=== PATIENT | male | born 1945 | race Caucasian/White ===

== ENCOUNTER 2019-08-19 12:20 | Inpatient (IN) | payer MEDICARE, OTHER ==
[~2019-08-19 12:20] MED LIST: Iopamidol 370 76% 100 ML VIAL ONE
[2019-08-19 12:52] LABS: #Eosinphils 0.2 thou/uL (0.0-0.7); #Lymphocytes 1.2 thou/uL (1.20-3.40); #Monocytes 0.2 thou/uL (0.11-0.59); #Neutrophils 8.1 thou/uL (1.40-6.50); %Lymphocytes 12.7 % (21.0-51.0); %Monocytes 1.7 % (0.0-10.0); %Neutrophils 83.6 % (42.0-75.0); Hemoglobin 18.6 g/dL (14.0-18.0); Mean Corpuscular HGB CONC 33.9 g/dL (32.0-36.0); Mean Corpuscular Volume 91.4 fL (78.0-98.0); Mean Platelet Volume 8.9 fL (7.4-10.4); Platelet Count 197 thou/uL (130-400); RBC Distribution Width 12.1 % (11.5-14.5); Red Blood Cell (RBC) Count 5.99 mill/uL (4.70-6.10); White Blood Cell (WBC) Count 9.7 thou/uL (4.8-10.8)
[2019-08-19 12:58] LABS: INR-International Normal Ratio 1.8; PTT 30.2 sec (22.9-36.1); Prothrombin Time 20.6 sec (12.0-14.7)
[2019-08-19 13:03] LABS: Bacteria/HPF None Seen HPF (None Seen); Bilirubin Negative (Negative); Blood, Urine 1+ (Negative); Clarity Clear (Clear); Glucose, Urine (Dipstick) 70 mg/dL (Negative); Ketone, Urine Negative (Negative); Leukocyte Negative Leu/uL (Negative); Mucous/LPF 1+ LPF (<2+); Nitrite Negative (Negative); Protein, Urine (Dipstick) 10 mg/dL (Neg-Trace); RBC/HPF 21-50 HPF (0-3); Specific Gravity, Urine 1.026 (1.002-1.036); Squamous Epithelial None Seen HPF (0-3); WBC/HPF 0-3 HPF (0-3); pH, Urine 6.5 (5.0-9.0)
[2019-08-19 13:12] LABS: ALT (SGPT) 37 U/L (8-55); AST (SGOT) 38 U/L (5-34); Albumin 3.9 g/dL (3.4-4.8); Alkaline Phosphatase 88 U/L (40-110); Anion Gap 19 mmol/L (10-20); BUN (Urea Nitrogen) 13 mg/dL (8.4-25.7); Bilirubin, Total 1.5 mg/dL (0.2-1.2); Calc. Creatinine Clearance 0 mL/min (70-130); Carbon Dioxide 18 mmol/L (23-31); Chloride 106 mmol/L (98-107); Estimated GFR-MDRD 56; Globulin 3.4 g/dL (2.4-3.5); Glucose 233 mg/dL (83-110); Lipase 38 U/L (8-78); Potassium 4.7 mmol/L (3.5-5.1); Protein, Total 7.3 g/dL (5.8-8.1); Sodium 138 mmol/L (136-145)
[2019-08-19] MEDS ORDERED: Cefepime 2 GM VIAL ONE (13:24)
[2019-08-19 13:29] LABS: CKMB 2.4 ng/mL (0-6.6)
--- NOTE | 2019-08-19 13:46 | RAD ---
CHEST 1 VIEW: Date: 08/19/2019 HISTORY: Hypotensive. COMPARISON: 07/05/2014. FINDINGS: Heart size is within normal limits. No confluent pneumonia, overt edema, or pleural effusion. IMPRESSION: No significant acute intrathoracic disease. Atherosclerotic ectatic changes of the aorta. Stable from prior study. POS: RRE
[2019-08-19] MEDS ORDERED: Vancomycin 1 GM/200 ML BAG ONE (13:53)
--- NOTE | 2019-08-19 15:27 | CT ---
CT ABDOMEN AND PELVIS WITH IV CONTRAST: 08/19/19 HISTORY: Abdominal pain and vomiting. FINDINGS: Comparison is made with exam of 07/05/14. There are dependent changes in the lung bases. No free air or free fluid is seen in the abdomen or pe lvis. Calcified gallstones are again seen. The liver, pancreas, adrenal glands, and kidneys are unremarkable. Calcified granulomas in the spleen are again seen. No free air or lymphadenopathy seen. A tiny amount of free fluid is present in the lower abdomen. The re are vascular calcifications without evidence of aneurysmal dilatation of the abdominal aorta. Ther e are degenerative changes in the spine. The prostate is enlarged. There are fluid filled nondilated small bowel loops involving the ileum. There is fluid in the right colon. There is fecal material in the transverse, descending, sigmoid colon and rectum. There is mild pericolonic inflammatory change surrounding the descending and sigmoid colon. The patient is post ap pendectomy. A small fat containing ventral hernia is present. IMPRESSION: 1. Cholelithiasis. 2. Findings are suggestive of enterocolitis. 3. Prostatic enlargement. POS: [facility]
[2019-08-19 15:37] LABS: Lactic Acid 5.7 mmol/L (0.5-2.2)
[2019-08-19] MEDS ORDERED: Dextrose 50% Abboject 50 ML SYRINGE SLOW IVP PRN (15:39)
[2019-08-19] MEDS ORDERED: Acetaminophen 325 MG TAB PO PRN (15:39)
[2019-08-19] MEDS ORDERED: Dextrose 5% in Water 1,000 ML IV PRN (15:39)
[2019-08-19] MEDS ORDERED: Guaifenesin DM 100-10/5 ML UDCUP PO PRN (15:39)
[2019-08-19] MEDS ORDERED: Cyclobenzaprine 10 MG TAB PO PRN (15:39)
--- NOTE | 2019-08-19 17:23 | HP ---
REASON FOR ADMISSION: Sepsis, possible gastroenteritis, possible COVID, and possible TIA. HISTORY OF PRESENTING ILLNESS: The patient is accompanied by his in the room. She apparently saw him vomit nearly 3 to 4 times around 9:00 a.m. His temperature was 93 degrees. She could not get a blood pressure reading on him. He did not have any diarrhea at the home, but on arrival here, has had large watery brown colored stool. The patient also has been having left lower extremity edema, off and on for the last few days and the has been giving diuretic on a p.r.n. basis. During these episodes, the patient also had slurred speech. He has known history of cerebrovascular accident and has baseline left hemiparesis and is wheelchair bound. He can help with transfers. [place] has had no exposure to [place] virus per . The patient does not go outside the house, but the does go out for groceries. She has not encountered anybody with coronavirus infection as such. 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 He has had history of mechanical thrombectomy done in February of [address] Tai for right MCA stroke with left hemiparesis, history of inferior wall CT with multiple stent placements around 2005 and follows up with Dr. Barber. History of pulmonary embolism in March of 2013. Depression. History of left lower extremity DVT diagnosed in November 2013. Appendectomy and shrapnel removed when he was in the [employer] in [place] from right lower quadrant area, hemorrhoidectomy. Prior colonoscopies with adenomatous polyps, removed in 2011 and follows up with Dr. Hart. Cataract extractions with lens implant, left shoulder lipoma removed, gastroesophageal reflux disease, allergic rhinitis, history of constipation, prior exposure to Agent [place] in [place]. CURRENT MEDICATIONS: 1. Xarelto 20 mg p.o. nightly. 2. Aspirin 81 mg p.o. daily. 3. Gabapentin 300 mg 3 times daily. 4. Lisinopril 40 mg daily. 5. Flomax 0.4 mg p.o. daily. 6. Fluoxetine 40 mg daily. 7. Isosorbide mononitrate 30 mg daily. 8. Simvastatin 40 mg p.o. nightly. 9. Carvedilol 12.5 mg twice daily. 10. Metformin 500 mg p.o. daily. ALLERGIES: NO KNOWN DRUG ALLERGIES. PERSONAL HISTORY: The patient was using smokeless tobacco in the past and has quit. Does not abuse alcohol or drugs. Lives with his . He is currently wheelchair bound, but helps with transfers. FAMILY HISTORY: The father of myocardial infarction at the age of 40. Mother has had history of lung cancer, in her 50s from a stroke. She was a smoker. CODE STATUS: Full. 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 REVIEW OF SYSTEMS: CONSTITUTIONAL: Negative for weight loss or gain, ability to conduct usual activities. SKIN: Negative for rash, itching. EYES: Negative for double vision, pain. ENT/MOUTH: Negative for nose bleeding, neck stiffness, pain, tenderness. CARDIOVASCULAR: Negative for palpitations, dyspnea on exertion, orthopnea. RESPIRATORY: Negative for shortness of breath, wheezing, cough, hemoptysis, fever or night sweats. GASTROINTESTINAL: Negative for poor appetite, abdominal pain, heartburn, nausea, vomiting, constipation, or diarrhea. GENITOURINARY: Negative for urgency, frequency, dysuria, nocturia. MUSCULOSKELETAL: Negative for pain, swelling. NEUROLOGIC/PSYCHIATRIC: Negative for anxiety, depression. ALLERGY/IMMUNOLOGIC: Negative for skin rash, bleeding tendency. PHYSICAL EXAMINATION: GENERAL: The patient is a 73-year-old male, who is currently not in any acute distress. VITAL SIGNS: Blood pressure on arrival was 96/66, currently 110/64; pulse rate 58 per minute, respiratory rate 18 per minute, temperature 97.6 degrees Fahrenheit, and saturating 97% on room air. NECK: Supple. No elevated JVD. HEENT: Eyes; extraocular muscles are intact. Pupils are reacting to light. Oral cavity, mucous membranes are dry. No exudates or congestion. CARDIOVASCULAR SYSTEM: S1 and S2 heard, regular rhythm. RESPIRATORY: Air entry 1+ bilateral. No rales or rhonchi. ABDOMEN: Soft. Bowel sounds heard. No tenderness, rigidity, or guarding. EXTREMITIES: Left lower extremity, there is edema when compared to right lower extremity. No ischemic ulcers or gangrene noted. Peripheral pulses are 1+ bilateral. CENTRAL NERVOUS SYSTEM: The patient has left hemiparesis, which is chronic with a strength of around 2/5 to 3/5 in the left lower extremity and left upper extremity around 2/5. Right upper and lower extremity strength is 5/5. No other cranial nerve deficits were noted. PSYCHIATRIC SYSTEM: The patient's mood is euthymic. No hallucinations or delusions. LABORATORY DATA: Chest x-ray done shows no acute infiltrate. CT of the abdomen and pelvis with IV contrast done shows cholelithiasis. Findings suggestive of enterocolitis, prostatic enlargement. White count of 9.7, H and H 18 and 54, platelet count 197 with 83% neutrophils. PT/INR 20 and 1.8, PTT 30, serum bicarb 18, BUN 13, creatinine 1.26, serum glucose 233. Lactic acid was 4 and repeat is 5.7. Total bilirubin 1.5, AST 38, ALT 37, alkaline phosphatase 88, CK-MB is 2.4, albumin 3.9. Troponin I 0.04. BNP 340. Lipase 38. UA is negative for any infection. EKG done shows sinus bradycardia at 57 beats per minute. There is Q-wave seen in V2, V3, and poor R-wave progression. CLINICAL IMPRESSION AND PLAN: The patient will be admitted to telemetry for sepsis with severe dehydration, gastroenteritis, to rule out C diff as well with no prior antibiotic exposure in the recent past, to rule out COVID, possible TIA. Blood, urine, and stool cultures will be obtained including stool for C diff. He will be on normal saline at 80 mL/h. We will keep him on full liquid diet. The patient likely has left lower extremity DVT, but he is already on Xarelto, and we will continue his aspirin as well. We will obtain MRI without contrast once his COVID is negative. Echo in view of prior mass on the tricuspid valve and current sepsis picture. He will be on Cipro and Flagyl for now. We will continue Lipitor, carvedilol, Plavix, Prozac, Neurontin, Imdur, and Flomax for now. Once his blood pressure comes up, we will add GRANT inhibitor. We will continue to closely monitor him on the COVID floor until he is ruled out. I have given complete updates to the patient's . Job ID: [id number]
[2019-08-19] MEDS: Sodium Chloride 0.9% 1,000 ML IV SCH (17:52)
[2019-08-19] MEDS: Carvedilol 3.125 MG TAB PO SCH (17:53)
[2019-08-19] MEDS ORDERED: Rivaroxaban 15 MG TAB PO SCH (21:00)
[2019-08-19] MEDS ORDERED: Carvedilol 6.25 MG TAB PO SCH (21:00)
[2019-08-19] MEDS: Gabapentin 100 MG CAP PO SCH (21:16)
[2019-08-19] MEDS: Atorvastatin Calcium 20 MG TAB PO SCH (21:16)
[2019-08-19] MEDS: Tamsulosin HCl 0.4 MG CAP PO SCH (21:16)
[2019-08-19] MEDS: metroNIDAZOLE 500 MG in Premix Bag 1 BAG IVPB SCH (21:17)
[2019-08-19] MEDS: Rivaroxaban 10 MG TAB PO SCH (21:21)
[2019-08-20 05:03] LABS: Band 22 % (5-11); Hemoglobin 16.8 g/dL (14.0-18.0); Lymphocytes 8 % (21-51); MDiff Complete? YES; Mean Corpuscular HGB CONC 33.7 g/dL (32.0-36.0); Mean Corpuscular Hemoglobin 30.8 pg (27.0-31.0); Mean Corpuscular Volume 91.3 fL (78.0-98.0); Mean Platelet Volume 9.1 fL (7.4-10.4); Monocytes 6 % (0-10); Neutrophil 64 % (42-75); Platelet Count 182 thou/uL (130-400); Platelet Morphology Comment Appears Adequate; RBC Distribution Width 12.3 % (11.5-14.5); RBC Morphology Normal; Red Blood Cell (RBC) Count 5.46 mill/uL (4.70-6.10)
[2019-08-20 05:09] LABS: ALT (SGPT) 43 U/L (8-55); AST (SGOT) 58 U/L (5-34); Albumin 3.3 g/dL (3.4-4.8); Alkaline Phosphatase 61 U/L (40-110); Anion Gap 16 mmol/L (10-20); BUN (Urea Nitrogen) 24 mg/dL (8.4-25.7); Bilirubin, Total 1.1 mg/dL (0.2-1.2); Calc. Creatinine Clearance 73 mL/min (70-130); Calcium 8.1 mg/dL (7.8-10.44); Carbon Dioxide 17 mmol/L (23-31); Cardiac Risk 3.2 (Less than 4.5); Chloride 108 mmol/L (98-107); Cholesterol 87 mg/dl (< 200 Desired); Estimated GFR-MDRD 54; Globulin 2.8 g/dL (2.4-3.5); Glucose 202 mg/dL (83-110); HDL Cholesterol 27 mg/dL (>60 Neg Risk); LDL Cholesterol, Calculated 44 mg/dL; Potassium 4.3 mmol/L (3.5-5.1); Protein, Total 6.1 g/dL (5.8-8.1); Sodium 137 mmol/L (136-145); Triglycerides 78 mg/dL (Less than 150)
[2019-08-20] MEDS: metroNIDAZOLE 500 MG in Premix Bag 1 BAG IVPB SCH ×2 (05:44→14:30)
[2019-08-20] MEDS: Sodium Chloride 0.9% 1,000 ML IV SCH ×2 (08:22→23:49)
[2019-08-20] MEDS: Carvedilol 3.125 MG TAB PO SCH (08:23)
[2019-08-20] MEDS: FLUoxetine HCl 20 MG CAP PO SCH (08:23)
[2019-08-20] MEDS: Aspirin 81 mg Enteric Coated Tablet PO SCH (08:23)
[2019-08-20] MEDS: Tamsulosin HCl 0.4 MG CAP PO SCH (08:24)
[2019-08-20] MEDS ORDERED: Clopidogrel Bisulfate 75 MG TAB PO SCH (09:00)
[2019-08-20] MEDS ORDERED: Lisinopril 20 MG TAB PO SCH (09:00)
[2019-08-20 11:03] LABS: SARS-CoV-2 MS2 Positive; SARS-CoV-2 N Gene Negative; SARS-CoV-2 S Gene Negative; SARS-CoV-2 orf1ab Negative
--- NOTE | 2019-08-20 12:19 | PDOC.HOSPP ---
- Subjective Encounter Date: 08/20/19 Encounter Time: :20 Subjective: c/o nausea and doesn't feel like drinking or eating mild abd cramps, last bm was yesterday per patient no sob or chest pain - Objective Vital Signs & Weight: Vital Signs (12 hours) Temp Pulse Resp BP Pulse Ox 08/20/19 08:25 98.2 F 68 16 122/58 L 93 L 08/20/19 04:00 99.2 F 78 18 116/57 L 92 L Weight Weight 230 lb 6.4 oz I&O: 08/19/19 08/20/19 08/21/19 06:59 06:59 06:59 Intake Total 1508 Balance 1508 Result Diagrams: 08/20/19 04:36 08/20/19 04:36 Additional Labs: Accuchecks 08/19/19 08/19/19 21:35 12:28 POC Glucose 206 H 228 H Hospitalist ROS - Medication Medications: Active Medications Generic Name Dose Route Start Last Admin Trade Name Freq PRN Reason Stop Dose Admin Aspirin 81 mg 08/20/19 09:00 08/20/19 08:23 Ecotrin PO 81 mg DAILY KATHYA Administration Atorvastatin Calcium 20 mg 08/19/19 21:00 08/19/19 21:16 Lipitor PO 20 mg HS KATHYA Administration Carvedilol 3.125 mg 08/19/19 17:00 08/20/19 08:23 Coreg PO 3.125 mg BID-WM KATHYA Administration Fluoxetine HCl 40 mg 08/20/19 09:00 08/20/19 08:23 Prozac PO 40 mg DAILY KATHYA Administration Gabapentin 100 mg 08/19/19 21:00 08/19/19 21:16 Neurontin PO 100 mg HS KATHYA Administration Sodium Chloride 1,000 mls @ 80 mls/hr 08/19/19 15:45 08/20/19 08:22 Normal Saline 0.9% IV 1,000 mls .[id number] KATHYA Administration Ciprofloxacin/Dextrose 400 mg/ 200 mls @ 200 mls/hr 08/19/19 17:00 08/20/19 03:57 Device IVPB 200 mls 0500,1700 KATHYA Administration Metronidazole 500 mg/ Device 100 mls @ 100 mls/hr 08/19/19 22:00 08/20/19 05: 44 IVPB 100 mls Q8HR KATHYA Administration Isosorbide Mononitrate 60 mg 08/20/19 09:00 08/20/19 08:23 Imdur PO 60 mg DAILY KATHYA Administration Pantoprazole Sodium 40 mg 08/20/19 09:00 08/20/19 08:23 Protonix PO 40 mg DAILY KATHYA Administration Rivaroxaban 20 mg 08/19/19 21:00 08/19/19 21:21 Xarelto PO 20 mg QPM KATHYA Administration Tamsulosin HCl 0.4 mg 08/19/19 21:00 08/20/19 08:24 Flomax PO 0.4 mg BID KATHYA Administration - Exam General Appearance: awake alert Eye: PERRL, anicteric sclera ENT: no oropharyngeal lesions, moist mucosa Neck: supple, no JVD Heart: RRR, no murmur Respiratory: no wheezes, no rales Gastrointestinal: soft, non-distended, normal bowel sounds, no guarding, no rigidity Extremities: no cyanosis, 1+ LE edema Neurological: cranial nerve grossly intact Neurological - other findings: left hemiparesis Psychiatric: normal affect, A&O x 3 Hosp A/P (1) Sepsis Code(s): A41.9 - SEPSIS, UNSPECIFIED ORGANISM Status: Acute Qualifiers: Sepsis type: sepsis due to unspecified organism Sepsis acute organ dysfunction status: without acute organ dysfunction Qualified Code(s): A41.9 - Sepsis, unspecified organism (2) Gastroenteritis Code(s): K52.9 - NONINFECTIVE GASTROENTERITIS AND COLITIS, UNSPECIFIED Status : Acute (3) Intractable nausea and vomiting Code(s): R11.2 - NAUSEA WITH VOMITING, UNSPECIFIED Status: Acute (4) HTN (hypertension) Code(s): I10 - ESSENTIAL (PRIMARY) HYPERTENSION Status: Chronic Qualifiers: Hypertension type: essential hypertension Qualified Code(s): I10 - Essential (primary) hypertension (5) DM type 2 (diabetes mellitus, type 2) Status: Chronic Qualifiers: Diabetes mellitus termite exterminator insulin use: without termite exterminator use Diabetes mellitus complication status: with neurologic complications Diabetes mellitus complication detail: with polyneuropathy Qualified Code(s): E11.42 - Type 2 diabetes mellitus with diabetic polyneuropathy (6) Dyslipidemia Code(s): E78.5 - HYPERLIPIDEMIA, UNSPECIFIED Status: Chronic (7) Obesity (BMI 30.0-34.9) Code(s): E66.9 - OBESITY, UNSPECIFIED Status: Chronic (8) H/O: CVA (cerebrovascular accident) Code(s): Z86.73 - PRSNL HX OF TIA (TIA), AND CEREB INFRC W/O RESID DEFICITS Status: Chronic - Plan is on asp, lipitor, cipro, flagyl, iv fluids, xarelto, prozac, imdur and neurontin has h/o dvt and PE on xarelto, currently has left LE edema likely dvt? wbc around 17k with bands, mild abd tenderness, diarrhea, imaging consistent with colitis will repeat covid 19 pcr, initial test is -ve consultation prelim blood and stool cultures are -ve echo, mri and usg venous doppler when his repeat covid 19 pcr is -ve (may hold off on them until he is -ve) hemostable watch for airway
[2019-08-20 15:06] LABS: Lactic Acid 2.9 mmol/L (0.5-2.2)
[2019-08-20] MEDS: MEROPENEM 1 GM/50 ML 1 GM in Premix Bag 1 BAG IVPB SCH ×2 (15:38→23:49)
[2019-08-20] MEDS ORDERED: Prevnar 13-Val Conj/PF 0.5 ML SYRINGE IM ONE (17:15)
--- NOTE | 2019-08-20 20:01 | CON ---
DATE OF CONSULTATION: 08/20/2019 REASON FOR CONSULTATION: Diarrhea, slurred speech, hypotension, and concern with an intraabdominal inflammatory process. HISTORY OF PRESENT ILLNESS: I saw Mr. Werner in 2013. At that time, he had a history of coronary artery disease and previous right hemispheric CVA with dense left hemiplegia. He also had an abnormality seen in the tricuspid valve. Subsequently, he was diagnosed with pulmonary embolism and we felt that this abnormality in the tricuspid valve was likely to represent a clot rather than an infectious vegetation. He was not treated with antimicrobials. I have not seen him since and now he presented from home reportedly with slurred speech and hypotension. When he came in, the patient had a BP 114/58, heart rate 59, O2 saturation 97% on room air, and he remained afebrile through the ER stay. He did not appear in distress on arrival. He was alert and described as oriented to person, place, and time and the remainder aspects of the exam were not particularly remarkable. Specifically, the abdomen was not tender or distended. Other findings included white cell count 9.7, hemoglobin 18.6, and platelets 197 with 83% neutrophils. INR is 1.8. Sodium 138, creatinine 1.26, bilirubin 1.5, AST 38, and BNP was 340 with troponin 0.048. Albumin 3.9. Lipase was 38. Lactic acid was 4.0. Urinalysis with 0 to 3 wbc's, 21 to 50 rbc's. COVID test was negative. Imaging studies included a chest x-ray, which demonstrated no evidence of infiltrates. There is an abdomen and pelvis CT, which demonstrated small amount of free fluid in the lower abdomen, vascular calcifications noted, enlargement of prostate. There were fluid-filled nondilated small bowel loops in the ileum, fluid in the right colon, and mild pericolonic inflammatory change surrounding the descending and sigmoid. There was suggestion of enterocolitis in the radiologist interpretation. Today is the second day of hospital stay and he is receiving Cipro, Flagyl, and Xarelto. Mr. Werner is awake. He is kind of apathetic. He does not appear to be in distress. He had a fairly decent recollection of the events that led him to be transferred to [facility]. He recalls being air flighted to [facility]. Currently, he denies any headaches. No visual symptoms, sore throat, odynophagia, or dysphagia. No respiratory symptoms. He said he did have some abdominal pain in the mid abdominal area. He pointed to right above the umbilicus, but then subsequently denied he was having tenderness there and he pointed to most of the tenderness in the suprapubic area. He does not have a Velasquez catheter. He continues with that dense left hemiplegia as noted previously a few years ago. PAST MEDICAL HISTORY: Includes DVT with pulmonary embolism, clot in the right ventricle, hemorrhagic CVA with dense left hemiplegia, coronary artery disease, myocardial infarction. SOCIAL HISTORY: Never smoker. Lives with his in [place]. Never drank alcoholic beverages. ALLERGIES: NONE. MEDICATIONS: At the moment he is receiving, 1. Flomax. 2. Xarelto. 3. Prevnar. 4. Protonix. 5. Zofran. 6. Flagyl. 7. Imdur. 8. Insulin. 9. Glucagon. 10. Neurontin. 11. Prozac. 12. Flexeril. 13. Cipro. 14. Lipitor. FAMILY HISTORY: Noncontributory. ALLERGIES: NO KNOWN DRUG ALLERGIES REPORTED. PHYSICAL EXAMINATION: VITAL SIGNS: T-max 99.2, BP 120/58, pulse 68, respirations 16, and O2 saturation 92% to 93%. SKIN: The patient has a peripheral IV access. No Velasquez catheter. No lymphadenopathy. HEENT: Ocular movements are conjugate. Sclerae are white. Oral cavity was not particularly remarkable. NECK: Supple. No jugular vein distention. LUNGS: With diminished breath sounds at bases, but no crackles or wheezing. HEART: S1 and S2. Diminished heart sounds. No obvious murmurs. ABDOMEN: Slightly distended, but soft. He was not tender on palpation for the most part except for the suprapubic area that was [id number] tender. I did a bladder scan and it was about a little bit more than 200 mL and within the bladder. GENITAL: Not remarkable. NEUROLOGIC: There is dense left hemiplegia. The right side moves fairly normally. Plantar responses are flexor. No clonus. Pulses are diminished in dorsalis pedis. He is awake, follows commands somewhat, appears depressed. LABORATORY DATA: Latest labs: White cell count 17.0, hemoglobin 16, platelets 182 with 22% bands. C diff was negative. Campylobacter negative. Shiga toxin test negative. Stool culture was not particularly remarkable. Blood cultures and urine culture no growth thus far. ASSESSMENT: 1. Vascular disease with prior cerebrovascular accident and myocardial infarction, and prior pulmonary embolism as well. 2. Chronic left hemiplegia, on Xarelto to prevent recurrence of thromboembolism. 3. Hypotension and abnormalities noted on CT of the abdomen and pelvis in reference to the small bowel and colon. The patient is currently on broad-spectrum coverage. DISCUSSION: The differential diagnosis includes ischemic bowel disease, particularly in view of the patient's significant vascular history. This seems to be the main concern at this point, particularly with worsening bands. A food acquired gastrointestinal infection is less likely. Recurrence of embolism or systemic embolism from the right or left side of the heart is less likely. I believe COVID-19 has been properly ruled out and I would discontinue isolation precautions, unless there are other epidemiological factors that I am not aware of. We will switch him to a broader spectrum coverage with meropenem. We probably would have to repeat the CT study and continue to monitor his chemistry and CBC. I have discussed the CT with radiologist and it appears that the mesenteric vessels are patent but calcified. He did not recommend angiogram at this point He may develop further worsening urinary retention and I would monitor his bladder scan at least once or twice a day going forward. Job ID: [id number] [id number]
[2019-08-20] MEDS: Gabapentin 100 MG CAP PO SCH (20:29)
[2019-08-20] MEDS: Atorvastatin Calcium 20 MG TAB PO SCH (20:29)
[2019-08-20] MEDS: Rivaroxaban 10 MG TAB PO SCH (20:29)
[2019-08-21] MEDS: MEROPENEM 1 GM/50 ML 1 GM in Premix Bag 1 BAG IVPB SCH ×3 (05:50→23:03)
[2019-08-21 05:56] LABS: ALT (SGPT) 32 U/L (8-55); AST (SGOT) 42 U/L (5-34); Albumin 3.1 g/dL (3.4-4.8); Alkaline Phosphatase 54 U/L (40-110); Anion Gap 15 mmol/L (10-20); BUN (Urea Nitrogen) 38 mg/dL (8.4-25.7); Bilirubin, Total 0.9 mg/dL (0.2-1.2); Calc. Creatinine Clearance 66 mL/min (70-130); Carbon Dioxide 18 mmol/L (23-31); Chloride 109 mmol/L (98-107); Estimated GFR-MDRD 49; Globulin 2.5 g/dL (2.4-3.5); Glucose 149 mg/dL (83-110); Potassium 3.7 mmol/L (3.5-5.1); Protein, Total 5.6 g/dL (5.8-8.1); Sodium 138 mmol/L (136-145)
[2019-08-21 05:59] LABS: Band 22 % (5-11); Hemoglobin 14.4 g/dL (14.0-18.0); Lymphocytes 15 % (21-51); MDiff Complete? YES; Mean Corpuscular HGB CONC 34.3 g/dL (32.0-36.0); Mean Corpuscular Hemoglobin 31.5 pg (27.0-31.0); Mean Corpuscular Volume 91.7 fL (78.0-98.0); Mean Platelet Volume 9.2 fL (7.4-10.4); Monocytes 5 % (0-10); Neutrophil 58 % (42-75); Platelet Count 142 thou/uL (130-400); Platelet Morphology Comment Appears Adequate; RBC Distribution Width 12.5 % (11.5-14.5); Red Blood Cell (RBC) Count 4.58 mill/uL (4.70-6.10); White Blood Cell (WBC) Count 14.2 thou/uL (4.8-10.8)
[2019-08-21] MEDS ORDERED: Loperamide HCl 2 MG CAP PO PRN (06:47)
[2019-08-21] MEDS: Aspirin 81 mg Enteric Coated Tablet PO SCH (09:15)
[2019-08-21] MEDS: Sodium Chloride 0.9% 1,000 ML IV SCH (09:16)
[2019-08-21] MEDS: FLUoxetine HCl 20 MG CAP PO SCH (09:16)
[2019-08-21 11:04] LABS: SARS-CoV-2 MS2 Positive; SARS-CoV-2 N Gene Negative; SARS-CoV-2 S Gene Negative; SARS-CoV-2 orf1ab Negative
--- NOTE | 2019-08-21 13:12 | CON ---
NEUROLOGY CONSULTATION DATE OF CONSULTATION: 08/21/2019 REASON FOR CONSULTATION: Transient ischemic attack. HISTORY OF PRESENT ILLNESS: Mr. Werner is a 73-year-old male, who was admitted on 08/19/2019 with altered mental status and baseline worsening of the left hemiparesis. The saw him vomit 2 to 3 times, which was followed by diarrhea and then she noticed slurred speech during these episodes and worsening of the left hemiparesis, so she decided to bring him to the hospital for further evaluation. At baseline, he does have left hemiparesis and is wheelchair bound. He is currently ruled out for coronavirus infection because of vomiting and diarrhea. The patient denies headache, chest pain, abdominal pain, focal paresthesias, vertigo, dizziness, blurred vision, or loss of vision or loss of consciousness. REVIEW OF SYSTEMS: All 10 systems were reviewed and were negative except mentioned in the HPI. 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 History of pulmonary embolism 03/20/2013, depression, appendectomy, and hemorrhoidectomy. ALLERGIES: NO KNOWN DRUG ALLERGIES. SOCIAL HISTORY: , lives with his . Use smokeless tobacco. Denies smoking. Denies alcohol or illegal drug use. Wheelchair bound, but helps with transfers. FAMILY HISTORY: Father of myocardial infarction at age of 40. Mother had lung cancer and in her 50s because of stroke. Mother was a smoker. - Objective Vital Signs & Weight: Vital Signs (12 hours) Temp Pulse Resp BP Pulse Ox 08/20/19 08:25 98.2 F 68 16 122/58 L 93 L 08/20/19 04:00 99.2 F 78 18 116/57 L 92 L Weight Weight 230 lb 6.4 oz I&O: 08/19/19 08/20/19 08/21/19 06:59 06:59 06:59 Intake Total 1508 Balance 1508 Additional Labs: Accuchecks 08/19/19 08/19/19 21:35 12:28 POC Glucose 206 H 228 H Active Medications Generic Name Dose Route Start Last Admin Trade Name Freq PRN Reason Stop Dose Admin Aspirin 81 mg 08/20/19 09:00 08/20/19 08:23 Ecotrin PO 81 mg DAILY KATHYA Administration Atorvastatin Calcium 20 mg 08/19/19 21:00 08/19/19 21:16 Lipitor PO 20 mg HS KATHYA Administration Carvedilol 3.125 mg 08/19/19 17:00 08/20/19 08:23 Coreg PO 3.125 mg BID-WM KATHYA Administration Fluoxetine HCl 40 mg 08/20/19 09:00 08/20/19 08:23 Prozac PO 40 mg DAILY KATHYA Administration Gabapentin 100 mg 08/19/19 21:00 08/19/19 21:16 Neurontin PO 100 mg HS KATHYA Administration Sodium Chloride 1,000 mls @ 80 mls/hr 08/19/19 15:45 08/20/19 08:22 Normal Saline 0.9% IV 1,000 mls .[id number] KATHYA Administration Ciprofloxacin/Dextrose 400 mg/ 200 mls @ 200 mls/hr 08/19/19 17:00 08/20/19 03:57 Device IVPB 200 mls 0500,1700 KATHYA Administration Metronidazole 500 mg/ Device 100 mls @ 100 mls/hr 08/19/19 22:00 08/20/19 05: 44 IVPB 100 mls Q8HR KATHYA Administration Isosorbide Mononitrate 60 mg 08/20/19 09:00 08/20/19 08:23 Imdur PO 60 mg DAILY KATHYA Administration Pantoprazole Sodium 40 mg 08/20/19 09:00 08/20/19 08:23 Protonix PO 40 mg DAILY KATHYA Administration Rivaroxaban 20 mg 08/19/19 21:00 08/19/19 21:21 Xarelto PO 20 mg QPM KATHYA Administration Tamsulosin HCl 0.4 mg 08/19/19 21:00 08/20/19 08:24 Flomax PO 0.4 mg BID KATHYA Administration - Exam General Appearance: awake alert Eye: PERRL, anicteric sclera ENT: no oropharyngeal lesions, moist mucosa Neck: supple, no JVD Heart: RRR, no murmur Respiratory: no wheezes, no rales Gastrointestinal: soft, non-distended, normal bowel sounds, no guarding, no rigidity Extremities: no cyanosis, 1+ LE edema Psychiatric: normal affect, A&O x 2 Neurological: : Mental status: The patient is alert and oriented to person and place. Cranial nerves: Left facial droop, dysarthria less intact. Muscle bulk is normal. Muscle tone is increased in the left upper and lower extremity. Left upper and lower extremity 3/5. Right upper and lower extremity 5/5. Cerebellar, unable to perform on the left secondary to weakness. Sensory intact. Reflexes, brisk on the left. Babinski upgoing on the left. Gait deferred due to the patient's safety reason. Hosp A/P (1) Sepsis Code(s): A41.9 - SEPSIS, UNSPECIFIED ORGANISM Status: Acute Qualifiers: Sepsis type: sepsis due to unspecified organism Sepsis acute organ dysfunction status: without acute organ dysfunction Qualified Code(s): A41.9 - Sepsis, unspecified organism (2) Gastroenteritis Code(s): K52.9 - NONINFECTIVE GASTROENTERITIS AND COLITIS, UNSPECIFIED Status : Acute (3) Intractable nausea and vomiting Code(s): R11.2 - NAUSEA WITH VOMITING, UNSPECIFIED Status: Acute (4) HTN (hypertension) Code(s): I10 - ESSENTIAL (PRIMARY) HYPERTENSION Status: Chronic Qualifiers: Hypertension type: essential hypertension Qualified Code(s): I10 - Essential (primary) hypertension (5) DM type 2 (diabetes mellitus, type 2) Status: Chronic Qualifiers: Diabetes mellitus predatory animal exterminator insulin use: without predatory animal exterminator use Diabetes mellitus complication status: with neurologic complications Diabetes mellitus complication detail: with polyneuropathy Qualified Code(s): E11.42 - Type 2 diabetes mellitus with diabetic polyneuropathy (6) Dyslipidemia Code(s): E78.5 - HYPERLIPIDEMIA, UNSPECIFIED Status: Chronic (7) Obesity (BMI 30.0-34.9) Code(s): E66.9 - OBESITY, UNSPECIFIED Status: Chronic (8) H/O: CVA (cerebrovascular accident) Code(s): Z86.73 - PRSNL HX OF TIA (TIA), AND CEREB INFRC W/O RESID DEFICITS Status: Chronic . DATA REVIEWED: I reviewed the chest x-ray, which did not reveal any acute infiltrate. CT of the abdomen and pelvis shows cholelithiasis. EKG showed bradycardia. ASSESSMENT AND PLAN: Mr. Werner is a 73-year-old male, who was consulted for possible transient ischemic attack. Differential diagnosis includes transient ischemic attack versus infectious etiology, which may result in recrudescence of stroke symptoms. The patient is currently COVID rule out. Consider MRI of the brain once the patient is ruled out for COVID. Recommend carotid Dopplers and 2D echocardiography and telemetry. Recommend EEG for confusion. Continue aspirin and Plavix and statin for secondary stroke prevention. Continue home medications. Continue PT/OT/Speech. We will continue to follow. Thank you for the consult. Job ID: [id number] MTDD
--- NOTE | 2019-08-21 14:08 | ULT ---
ULTRASOUND DOPPLER DUPLEX VENOUS BILATERAL LOWER EXTREMITIES: DATE: 08/21/2019 HISTORY: 73-year-old male with bilateral lower extremity pain TECHNIQUE: Grayscale, color-flow, and spectral analysis, of major veins of bilateral lower extremities. FINDINGS: There is demonstration of blood flow with normal compressibility, of the bilateral common femoral, pr ofunda femoral, greater saphenous, femoral, popliteal, and posterior tibial, veins. IMPRESSION: Negative. No deep venous thrombosis of bilateral lower extremities.
--- NOTE | 2019-08-21 15:09 | PDOC.HOSPP ---
- Subjective Encounter Date: 08/21/19 Encounter Time: 09:45 Subjective: was able to eat this morning, feels better no nausea or abd pain today is oriented and follows verbal stimuli - Objective Vital Signs & Weight: Vital Signs (12 hours) Temp Pulse Resp BP BP Pulse Ox 08/21/19 12:40 97.7 F 74 18 166/77 H 94 L 08/21/19 09:00 98.1 F 71 16 151/67 H 94 L 08/21/19 05:00 97.6 F 66 20 142/66 H 93 L Weight Admit Weight 226 lb 14.4 oz Weight 234 lb I&O: 08/20/19 08/21/19 08/22/19 06:59 06:59 06:59 Intake Total 1508 480 907 Balance 1508 480 907 Result Diagrams: 08/21/19 05:10 08/21/19 05:10 Additional Labs: Accuchecks 08/21/19 08/21/19 08/20/19 12:38 06:02 20:39 POC Glucose 124 H 160 H 185 H 08/20/19 18:09 POC Glucose 154 H Hospitalist ROS - Medication Medications: Active Medications Generic Name Dose Route Start Last Admin Trade Name Freq PRN Reason Stop Dose Admin Aspirin 81 mg 08/20/19 09:00 08/21/19 09:15 Ecotrin PO 81 mg DAILY KATHYA Administration Atorvastatin Calcium 20 mg 08/19/19 21:00 08/20/19 20:29 Lipitor PO 20 mg HS KATHYA Administration Fluoxetine HCl 40 mg 08/20/19 09:00 08/21/19 09:16 Prozac PO 40 mg DAILY KATHYA Administration Gabapentin 100 mg 08/19/19 21:00 08/20/19 20:29 Neurontin PO 100 mg HS KATHYA Administration Sodium Chloride 1,000 mls @ 80 mls/hr 08/19/19 15:45 08/21/19 09:16 Normal Saline 0.9% IV 1,000 mls .[id number] KATHYA Administration Meropenem 1 gm/ Device 50 mls @ 100 mls/hr 08/20/19 15:00 08/21/19 05:50 IVPB 50 mls 0700,1500,2300 KATHYA Administration Loperamide HCl 2 mg 08/21/19 06:47 08/21/19 07:19 Imodium PO 2 mg Q4H PRN Administration Diarrhea/Loose Stools Pantoprazole Sodium 40 mg 08/20/19 09:00 08/21/19 09:16 Protonix PO 40 mg DAILY KATHYA Administration Rivaroxaban 20 mg 08/19/19 21:00 08/20/19 20:29 Xarelto PO 20 mg QPM KATHYA Administration Sodium Chloride 10 ml 08/19/19 15:39 08/21/19 09:16 Flush - Normal Saline IVF 10 ml PRN PRN Administration Saline Flush - Exam General Appearance: awake alert Eye: PERRL, anicteric sclera ENT: no oropharyngeal lesions, moist mucosa Neck: supple, no JVD Heart: RRR, no murmur Respiratory: no wheezes, no rales Gastrointestinal: soft, non-tender, non-distended, normal bowel sounds Extremities: no cyanosis, 1+ LE edema Neurological: cranial nerve grossly intact, hemiplegia Psychiatric: normal affect, A&O x 3 Hosp A/P (1) Sepsis Code(s): A41.9 - SEPSIS, UNSPECIFIED ORGANISM Status: Acute Qualifiers: Sepsis type: sepsis due to unspecified organism Sepsis acute organ dysfunction status: without acute organ dysfunction Qualified Code(s): A41.9 - Sepsis, unspecified organism (2) Gastroenteritis Code(s): K52.9 - NONINFECTIVE GASTROENTERITIS AND COLITIS, UNSPECIFIED Status : Acute (3) Intractable nausea and vomiting Code(s): R11.2 - NAUSEA WITH VOMITING, UNSPECIFIED Status: Resolved (4) HTN (hypertension) Code(s): I10 - ESSENTIAL (PRIMARY) HYPERTENSION Status: Chronic Qualifiers: Hypertension type: essential hypertension Qualified Code(s): I10 - Essential (primary) hypertension (5) DM type 2 (diabetes mellitus, type 2) Status: Chronic Qualifiers: Diabetes mellitus jail insulin use: without terminal press operator use Diabetes mellitus complication status: with neurologic complications Diabetes mellitus complication detail: with polyneuropathy Qualified Code(s): E11.42 - Type 2 diabetes mellitus with diabetic polyneuropathy (6) Dyslipidemia Code(s): E78.5 - HYPERLIPIDEMIA, UNSPECIFIED Status: Chronic (7) Obesity (BMI 30.0-34.9) Code(s): E66.9 - OBESITY, UNSPECIFIED Status: Chronic (8) H/O: CVA (cerebrovascular accident) Code(s): Z86.73 - PRSNL HX OF TIA (TIA), AND CEREB INFRC W/O RESID DEFICITS Status: Chronic - Plan is on asp, lipitor, meropenem, iv fluids, xarelto, prozac, imdur and neurontin has h/o dvt and PE on xarelto, currently has left LE edema but usg venous is - ve for dvt. covid 19 x2 is -ve, imaging consistent with colitis dc airborne and droplet precautions, cdif is -ve as well consultation blood and stool cultures are -ve echo, mri to be done today/am hemostable PT to start mobilizing with rw tx to telemetry or stroke unit
--- NOTE | 2019-08-21 18:06 | PRG ---
DATE OF SERVICE: 08/21/2019 SUBJECTIVE: Still having some abdominal tenderness intermittently, mostly in the periumbilical region. Dr. Shafer has evaluated the patient, and he is going to have an MRI done tomorrow, I believe. Still having diarrhea intermittently. No vomiting. No respiratory symptoms. OBJECTIVE: VITAL SIGNS: T-max 99.2, blood pressure 170/86, pulse 68, respirations 18, O2 saturation 94%. GENERAL: Awake and alert. Dense left hemiplegia. LUNGS: Clear. HEART: S1 and S2. Regular rate. ABDOMEN: Soft with [id number] tenderness in the periumbilical region. Mild distention. Velasquez catheter inserted. LABORATORY DATA: Sodium 138; creatinine 1.42, which is higher than his admitting creatinine. AST is down to 42. Albumin 3.1. Urinalysis, 0 to 3 wbc's. He has had 2 negative COVID tests now. ASSESSMENT AND DISCUSSION: Vascular disease; prior cerebrovascular accident; myocardial infarction; pulmonary embolism; chronic left hemiplegia, on Xarelto; hypotension; and abnormalities noted on CT abdomen and pelvis with enteritis and possible colitis. Again, the differential diagnosis includes ischemic bowel disease. An infectious process appears to be less likely. Embolism recurrences also to be considered. Because of urinary retention, he required placement of a Velasquez catheter. Job ID: [id number]
[2019-08-21] MEDS: Gabapentin 100 MG CAP PO SCH (22:41)
[2019-08-21] MEDS: Rivaroxaban 10 MG TAB PO SCH (22:41)
[2019-08-21] MEDS: Atorvastatin Calcium 20 MG TAB PO SCH (22:41)
[2019-08-22 05:29] LABS: #Eosinphils 0.2 thou/uL (0.0-0.7); #Lymphocytes 1.6 thou/uL (1.20-3.40); #Monocytes 1.1 thou/uL (0.11-0.59); #Neutrophils 7.5 thou/uL (1.40-6.50); %Basophils 0.4 % (0.0-1.0); %Eosinophils 2.2 % (0.0-10.0); %Lymphocytes 15.4 % (21.0-51.0); %Monocytes 10.6 % (0.0-10.0); %Neutrophils 71.3 % (42.0-75.0); Hemoglobin 14.5 g/dL (14.0-18.0); Mean Corpuscular Hemoglobin 30.6 pg (27.0-31.0); Mean Corpuscular Volume 89.8 fL (78.0-98.0); Platelet Count 143 thou/uL (130-400); RBC Distribution Width 12.1 % (11.5-14.5); Red Blood Cell (RBC) Count 4.75 mill/uL (4.70-6.10); White Blood Cell (WBC) Count 10.5 thou/uL (4.8-10.8)
[2019-08-22 05:51] LABS: ALT (SGPT) 29 U/L (8-55); AST (SGOT) 43 U/L (5-34); Alkaline Phosphatase 55 U/L (40-110); Anion Gap 9 mmol/L (10-20); BUN (Urea Nitrogen) 22 mg/dL (8.4-25.7); Bilirubin, Total 0.9 mg/dL (0.2-1.2); Calc. Creatinine Clearance 115 mL/min (70-130); Carbon Dioxide 25 mmol/L (23-31); Chloride 108 mmol/L (98-107); Estimated GFR-MDRD 90; Globulin 2.5 g/dL (2.4-3.5); Glucose 127 mg/dL (83-110); Potassium 3.4 mmol/L (3.5-5.1); Protein, Total 5.5 g/dL (5.8-8.1); Sodium 139 mmol/L (136-145)
[2019-08-22] MEDS: Sodium Chloride 0.9% 1,000 ML IV SCH ×2 (06:05→21:05)
[2019-08-22] MEDS: MEROPENEM 1 GM/50 ML 1 GM in Premix Bag 1 BAG IVPB SCH ×3 (06:11→21:04)
[2019-08-22] MEDS ORDERED: Lorazepam 2 MG/ML VIAL SLOW IVP SCH (07:00)
[2019-08-22] MEDS: Diltiazem 125 MG in Sodium Chloride 0.9% 100 ML IVPB SCH (07:11)
[2019-08-22] MEDS: Aspirin 81 mg Enteric Coated Tablet PO SCH (09:01)
[2019-08-22] MEDS: FLUoxetine HCl 20 MG CAP PO SCH (09:01)
[2019-08-22] MEDS: Carvedilol 6.25 MG TAB PO SCH ×2 (09:02→16:30)
[2019-08-22 09:58] LABS: Phosphorus 1.9 mg/dL (2.3-4.7)
[2019-08-22] MEDS ORDERED: Potassium Phosphate 30 MMOL, Admixture Fee 1 EACH in Sodium Chloride 0.9% 500 ML IVPB SCH (11:00)
--- NOTE | 2019-08-22 12:31 | PDOC.HOSPP ---
- Subjective Encounter Date: 08/22/19 Subjective: NEUROLOGY PROGRESS NOTE Patient is alert, awake and follows commands appropriately. - Objective Vital Signs & Weight: Vital Signs (12 hours) Temp Pulse Resp BP BP BP Pulse Ox 08/22/19 12:00 98.5 F 90 18 152/88 H 92 L 08/22/19 08:55 93 L 08/22/19 07:00 98.1 F 72 18 158/69 H 93 L 08/22/19 03:02 98.1 F 64 24 H 182/84 H 95 Weight Admit Weight 226 lb 14.4 oz Weight 231 lb I&O: 08/21/19 08/22/19 08/23/19 06:59 06:59 06:59 Intake Total 480 1967 Output Total 1575 Balance 480 392 Result Diagrams: 08/22/19 05:00 08/22/19 05:00 Additional Labs: Accuchecks 08/22/19 08/22/19 08/22/19 10:48 05:31 03:05 POC Glucose 147 H 120 H 131 H 08/21/19 08/21/19 16:37 12:38 POC Glucose 128 H 124 H Radiology Reviewed by me: Yes EKG Reviewed by me: Yes Hospitalist ROS - Review of Systems Constitutional: denies: fever, chills, sweats, weakness, malaise, other Eyes: denies: pain, vision change, conjunctivae inflammation, eyelid inflammation, redness, other ENT: denies: ear pain, ear discharge, nose pain, nose discharge, nose congestion , mouth pain, mouth swelling, throat pain, throat swelling, other Respiratory: denies: cough, dry, shortness of breath, hemoptysis, SOB with excertion, pleuritic pain, sputum, wheezing, other Cardiovascular: denies: chest pain, palpitations, orthopnea, paroxysmal noc. dyspnea, edema, light headedness, other Gastrointestinal: denies: nausea, vomiting, abdominal pain, diarrhea, constipation, melena, hematochezia, other Genitourinary: denies: dysuria, frequency, incontinence, hematuria, retention, other Musculoskeletal: denies: neck pain, shoulder pain, arm pain, back pain, hand pain, leg pain, foot pain, other Neurological: reports: weakness, numbness, incoordination - Medication Medications: Active Medications Generic Name Dose Route Start Last Admin Trade Name Freq PRN Reason Stop Dose Admin Aspirin 81 mg 08/20/19 09:00 08/22/19 09:01 Ecotrin PO 81 mg DAILY KATHYA Administration Atorvastatin Calcium 20 mg 08/19/19 21:00 08/21/19 22:41 Lipitor PO 20 mg HS KATHYA Administration Carvedilol 12.5 mg 08/22/19 08:00 08/22/19 09:02 Coreg PO 12.5 mg BID-WM KATHYA Administration Fluoxetine HCl 40 mg 08/20/19 09:00 08/22/19 09:01 Prozac PO 40 mg DAILY KATHYA Administration Gabapentin 100 mg 08/19/19 21:00 08/21/19 22:41 Neurontin PO 100 mg HS KATHYA Administration Sodium Chloride 1,000 mls @ 80 mls/hr 08/19/19 15:45 08/22/19 06:05 Normal Saline 0.9% IV 1,000 mls .[id number] KATHYA Administration Meropenem 1 gm/ Device 50 mls @ 100 mls/hr 08/20/19 15:00 08/22/19 06:11 IVPB 50 mls 0700,1500,2300 KATHYA Administration Diltiazem HCl 125 mg/ Sodium 125 mls @ 5 mls/hr 08/22/19 07:00 08/22/19 07:11 Chloride IVPB 125 mls INF KATHYA Administration 5 MG/HR Potassium Phosphate 30 mmol/ 510 mls @ 83.3 mls/hr 08/22/19 11:00 08/22/19 11 :33 Miscellaneous Medication 1 IVPB 08/22/19 18:00 510 mls each/ Sodium Chloride NOW KATHYA Administration Loperamide HCl 2 mg 08/21/19 06:47 08/21/19 07:19 Imodium PO 2 mg Q4H PRN Administration Diarrhea/Loose Stools Pantoprazole Sodium 40 mg 08/20/19 09:00 08/22/19 09:02 Protonix PO 40 mg DAILY KATHYA Administration Rivaroxaban 20 mg 08/19/19 21:00 08/21/19 22:41 Xarelto PO 20 mg QPM KATHYA Administration Sodium Chloride 10 ml 08/19/19 15:39 08/21/19 22:41 Flush - Normal Saline IVF 10 ml PRN PRN Administration Saline Flush - Exam General Appearance: awake alert Eye: PERRL ENT: normocephalic atraumatic Neck: supple Heart: RRR Respiratory: CTAB Gastrointestinal: soft Extremities: no cyanosis Skin: normal turgor Neurological: no new deficit, facial droop, hemiplegia, speech deficit Psychiatric: normal affect, normal behavior, A&O x 3, oriented to person, oriented to place, oriented to time Hosp A/P (1) TIA (transient ischemic attack) Code(s): G45.9 - TRANSIENT CEREBRAL ISCHEMIC ATTACK, UNSPECIFIED Status: Acute (2) DM type 2 (diabetes mellitus, type 2) Status: Chronic Qualifiers: Diabetes mellitus [facility] insulin use: without [facility] use Diabetes mellitus complication status: with neurologic complications Diabetes mellitus complication detail: with polyneuropathy Qualified Code(s): E11.42 - Type 2 diabetes mellitus with diabetic polyneuropathy (3) Dyslipidemia Code(s): E78.5 - HYPERLIPIDEMIA, UNSPECIFIED Status: Chronic (4) H/O: CVA (cerebrovascular accident) Code(s): Z86.73 - PRSNL HX OF TIA (TIA), AND CEREB INFRC W/O RESID DEFICITS Status: Chronic (5) HTN (hypertension) Code(s): I10 - ESSENTIAL (PRIMARY) HYPERTENSION Status: Chronic Qualifiers: Hypertension type: essential hypertension Qualified Code(s): I10 - Essential (primary) hypertension (6) Obesity (BMI 30.0-34.9) Code(s): E66.9 - OBESITY, UNSPECIFIED Status: Chronic (7) Intractable nausea and vomiting Code(s): R11.2 - NAUSEA WITH VOMITING, UNSPECIFIED Status: Resolved - Plan PT/OT, speech therapy, DVT proph w/lovenox 73 year old with prior CVA with residual left hemiplegia presented with worsening weakness, confusion and slurred speech . Per , he is now at his baseline. Differential diagnosis includes TIA versus recrudescence of stroke symptoms due to infectious etiology. Recommend MRI Brain to rule out intracranial process. Recommend ECHO to rule out cardioembolic source. EEG reviewed which was negative for acute intracranial pathology. Neurochecks every 4 hours. Strict control of BP and BG. Continue aspirin, plavix and high intensity for secondary stroke prevention. Continue home medications. PT/OT/Speech. Rehab evaluation. Continue medical management per primary team.
--- NOTE | 2019-08-22 13:40 | EEG ---
Referring Physician: Didier THIBODEAUX EEG # [id number] TEST TYPE: CONTINUOUS EXTENDED VIDEO EEG REPORT: This EEG was performed using 24 channel [employer] video digital EEG machine with 24 disc electrodes. This was an extended 2 hour 6 minutes of inpatient video EEG recording. Digital analysis of the EEG was done for spike and seizure detection which revealed no abnormalities. BACKGROUND: There is a nonsustained posterior background rhythm of 7.5-8.5 hertz. Minimal reactivity seen with eye opening and closure. HYPERVENTILATION: Was not performed. PHOTIC STIMULATION: No significant response seen with photic stimulation. SLEEP: Drowsiness is observed. EEG DIAGNOSIS: 1.) Occasional irregular theta activity seen during the recording. 2.) Nonsustained posterior background rhythm. CLINICAL INTERPRETATION: THIS EEG IS CONSISTENT WITH MILD TO MODERATE GENERALIZED NONSPECIFIC CEREBRAL DYSFUNCTION. NO ICTAL OR INTERICTAL EPILEPTIFORM ABNORMALITIES SEEN DURING THE RECORDING. Tape Sewer: SHEA Paralegal Secretary: [email or web address]
--- NOTE | 2019-08-22 14:59 | PDOC.HOSPP ---
- Subjective Encounter Date: 08/22/19 Encounter Time: 10:00 Subjective: Patient seen and examined for Sepsis/AMS. Mentation improving. No new focal deficits. Still has diarrhea. No other complaints. No overnight events - Objective Vital Signs & Weight: Vital Signs (12 hours) Temp Pulse Resp BP BP BP Pulse Ox 08/22/19 12:00 98.5 F 90 18 152/88 H 92 L 08/22/19 08:55 93 L 08/22/19 07:00 98.1 F 72 18 158/69 H 93 L 08/22/19 03:02 98.1 F 64 24 H 182/84 H 95 Weight Admit Weight 226 lb 14.4 oz Weight 231 lb I&O: 08/21/19 08/22/19 08/23/19 06:59 06:59 06:59 Intake Total 480 1967 Output Total 1575 Balance 480 392 Result Diagrams: 08/22/19 05:00 08/22/19 05:00 Additional Labs: Accuchecks 08/22/19 08/22/19 08/22/19 10:48 05:31 03:05 POC Glucose 147 H 120 H 131 H 08/21/19 16:37 POC Glucose 128 H EKG Reviewed by me: Yes (Tele Afib) Hospitalist ROS - Review of Systems Respiratory: denies: cough, dry, shortness of breath, hemoptysis, SOB with excertion, pleuritic pain, sputum, wheezing, other Cardiovascular: denies: chest pain, palpitations, orthopnea, paroxysmal noc. dyspnea, edema, light headedness, other - Medication Medications: Active Medications Generic Name Dose Route Start Last Admin Trade Name Henryq PRN Reason Stop Dose Admin Aspirin 81 mg 08/20/19 09:00 08/22/19 09:01 Ecotrin PO 81 mg DAILY KATHYA Administration Atorvastatin Calcium 20 mg 08/19/19 21:00 08/21/19 22:41 Lipitor PO 20 mg HS KATHYA Administration Carvedilol 12.5 mg 08/22/19 08:00 08/22/19 09:02 Coreg PO 12.5 mg BID-WM KATHYA Administration Fluoxetine HCl 40 mg 08/20/19 09:00 08/22/19 09:01 Prozac PO 40 mg DAILY KATHYA Administration Gabapentin 100 mg 08/19/19 21:00 08/21/19 22:41 Neurontin PO 100 mg HS KATHYA Administration Sodium Chloride 1,000 mls @ 80 mls/hr 08/19/19 15:45 08/22/19 06:05 Normal Saline 0.9% IV 1,000 mls .[id number] KATHYA Administration Meropenem 1 gm/ Device 50 mls @ 100 mls/hr 08/20/19 15:00 08/22/19 06:11 IVPB 50 mls 0700,1500,2300 KATHYA Administration Diltiazem HCl 125 mg/ Sodium 125 mls @ 5 mls/hr 08/22/19 07:00 08/22/19 07:11 Chloride IVPB 125 mls INF KATHYA Administration 5 MG/HR Potassium Phosphate 30 mmol/ 510 mls @ 83.3 mls/hr 08/22/19 11:00 08/22/19 11 :33 Miscellaneous Medication 1 IVPB 08/22/19 18:00 510 mls each/ Sodium Chloride NOW KATHYA Administration Loperamide HCl 2 mg 08/21/19 06:47 08/21/19 07:19 Imodium PO 2 mg Q4H PRN Administration Diarrhea/Loose Stools Pantoprazole Sodium 40 mg 08/20/19 09:00 08/22/19 09:02 Protonix PO 40 mg DAILY KATHYA Administration Rivaroxaban 20 mg 08/19/19 21:00 08/21/19 22:41 Xarelto PO 20 mg QPM KATHYA Administration Sodium Chloride 10 ml 08/19/19 15:39 08/21/19 22:41 Flush - Normal Saline IVF 10 ml PRN PRN Administration Saline Flush - Exam General Appearance: NAD Neck: supple Heart: no gallops, irregular Respiratory: no rales, no ronchi Gastrointestinal: non-tender, normal bowel sounds Extremities: no cyanosis, no clubbing Neurological: no new deficit Hosp A/P - Plan Sepsis due to gastroenteritis/colitis N/V/D due to above Toxic Metabolic Encephalopathy (POA) Afib with RVR - new onset Hypokalemia Hypophosphatemia HTN DM2 CAD Chronic anticoagulation h/o CVA with left hemiparesis Urinary retention requiring khalil catheter BPH Cholelithiases Obesity BMI 35 PLAN: Cont Meropenem Replace electrolytes Cont Cardizem drip On Xarelto Cont gentle IV hydration AM labs Cardiology/GI consultation Cont other meds as above.
[2019-08-22] MEDS ORDERED: Clopidogrel Bisulfate 75 MG TAB ONE (16:18)
[2019-08-22] MEDS: Ondansetron PF 4 MG/2 ML Vial IVP PRN ×2 (16:36→23:14)
[2019-08-22] MEDS: Rivaroxaban 10 MG TAB PO SCH (21:03)
[2019-08-22] MEDS: Gabapentin 100 MG CAP PO SCH (21:03)
[2019-08-22] MEDS: Atorvastatin Calcium 20 MG TAB PO SCH (21:03)
[2019-08-22] MEDS: Saccharomyces boulardii 250 MG CAP PO SCH (21:04)
--- NOTE | 2019-08-22 23:19 | CON ---
DATE OF CONSULTATION: HISTORY OF PRESENT ILLNESS: Andrae Werner is a 73-year-old white male, who was following with Dr. Barber in the past. In October 2005, he underwent stress echo testing. He was found to have inferoposterior and lateral wall ischemia. He underwent catheterization and had an ejection fraction of 50% to 55%. The inferior wall was akinetic. There was a 20% LAD and a 20% mid LAD stenosis. There was 90% lesion in the first diagonal. The left circumflex had a 99% mid stenosis. The ramus had a 90% stenosis. The right coronary artery had a 20% proximal and 20% mid stenosis. The posterior descending and RPFA both had 90% lesions. He underwent placement of Taxus 2.5 x 24 mm and a Taxus 2.5 x 16 mm stent in the circumflex. One month later, he underwent placement of Taxus 2.5 x 20 mm stent in the ramus. It was felt that the distal right coronary artery disease was in very small vessels, too small to intervene. In 2012, he had a cerebrovascular accident. He has paroxysmal atrial fibrillation. He is chronically anticoagulated with Xarelto. His last echocardiogram was in December 2014, which revealed ejection fraction of 50% to 55% with inferoposterior hypokinesis. He has not seen Dr. Barber since July 2016. He now presents with complaints of significant nausea and vomiting. He denies any diarrhea. He has had somewhat slurring of his speech. PAST MEDICAL HISTORY: Coronary artery disease, history of CVA with resulting left-sided hemiparesis, hypertension, benign prostatic hypertrophy, hypercholesterolemia, diabetes, pulmonary embolism in March 2013, depression. PAST SURGICAL HISTORY: Appendectomy, shrapnel removal, when he was in the [employer] in in [place] from the right lower quadrant, hemorrhoidectomy. MEDICATIONS: 1. Xarelto 20 mg daily. 2. Aspirin 81 daily. 3. Gabapentin 300 mg t.i.d. 4. Lisinopril 40 daily. 5. Flomax 0.4 mg daily. 6. Fluoxetine 40 mg daily. 7. Isosorbide mononitrate 30 daily. 8. Simvastatin 40 at bedtime. 9. Carvedilol 12.5 mg b.i.d. 10. Metformin 500 daily. ALLERGIES: NONE. SOCIAL HISTORY: He used smokeless tobacco in the past. He does not smoke. He is chronically confined to a wheelchair. FAMILY HISTORY: Father of myocardial infarction at the age of 40. REVIEW OF SYSTEMS: A 10-point review of systems is otherwise unremarkable. PHYSICAL EXAMINATION: VITAL SIGNS: Blood pressure 182/87, pulse of 81 and irregularly irregular. HEENT: PERRL. NECK: Supple. CHEST: Clear. CARDIAC: S1 and S2 normal without any S3, S4, or murmurs. Carotid upstrokes are normal without bruits. ABDOMEN: Normal bowel sounds without tenderness or organomegaly. Abdomen is obese. EXTREMITIES: Reveal 1+ pretibial edema on the left, trace pretibial edema on the right. NEUROLOGIC: Reveals left hemiparesis. SKIN: Warm and dry. IMPRESSION: 1. Nausea and vomiting, which has improved, possibly due to ischemic bowel. 2. History of cerebrovascular with resulting left-sided hemiparesis. 3. History of stent placement in the proximal to mid circumflex and in the ramus. 4. Diabetes. 5. Hypercholesterolemia. 6. Obesity. 7. Atrial fibrillation with RVR, possibly chronic. PLAN: Echocardiogram will be performed to reassess left ventricular function. Job ID: [id number] [facility]
--- NOTE | 2019-08-23 00:56 | CON ---
DATE OF CONSULTATION: 08/22/2019 REASON FOR CONSULTATION: Enterocolitis. HISTORY OF PRESENT ILLNESS: Andrae Werner is a very pleasant 73-year-old male, brought to the ER by the family I believe 3 days ago. The admitting history and physical by Dr. Burch reviewed. Also the consult by Dr. Pa Caceres reviewed. The patient has had previous CVA with residual left-sided weakness. His speech is still somewhat slurred. There is no family available in the room. As per admitting history and physical, the patient was brought to the ER by the family because of diarrhea, slurred speech, hypotension and concern for possibly infectious process. The patient had no diarrhea at home. However, after arrival in the ER, he had an episode of diarrhea with large brownish stool. There is no blood in the stool. No black stool. The patient has had an abdominal CAT scan on admission. Abdominal CAT scan showed thickening of the left colon and sigmoid colon, possibly represent there is some colitis. There is also some air-fluid shadow in the small bowel and also in the colon. The patient improved tremendously since admission. He is having only 1 stool per day. However, he is usually sick to stomach and does not feel like eating. Every time he tries to eat something, he feels sick and he feels like he is going to throw up. However, he has no vomiting. In fact, he does not feel like eating today. He has some abdominal pain, which is very mild. The patient has no rectal bleeding. No history of antibiotic intake. He also has had diarrhea. He is having only one stool per day. He is not having multiple stools. No similar episodes in the past. Since admission, he has had an EEG and also CAT scan of the head. There were no new findings seen. The patient is on IV antibiotics for possible UTI, which includes Cipro, Flagyl. He has no relevant history. ALLERGIES: NONE. SOCIAL HISTORY: He is . He lives with his in [place]. Never drank alcohol. Never smoked. MEDICAL ILLNESSES: 1. DVT with pulmonary embolism in the past. 2. Intestinal bleeding. 3. CVA with dense left hemiplegia. 4. Coronary artery disease. 5. Myocardial infarction. 6. He has also history of hyperlipidemia, type 2 diabetes mellitus, and history of colon polyps removed by Dr. Hart, the last one was in 2011. 7. He had a cataract surgery, removal of left shoulder lipoma, chronic acid reflux, allergic rhinitis, depression. 8. Prior history of exposure to Agent Irwin in [place]. 9. History of enlarged prostate. MEDICATIONS: Include; 1. Xarelto. 2. Aspirin. 3. Gabapentin. 4. Lisinopril. 5. Flomax. 6. Fluoxetine. 7. Isordil. 8. Simvastatin. 9. Carvedilol. 10. Metformin. FAMILY HISTORY: Father of myocardial infarction at age 40. Mother had lung cancer and in her 50s from a stroke. REVIEW OF SYSTEMS: Remarkable for diarrhea, abdominal pain, nausea, and poor appetite. PHYSICAL EXAMINATION: GENERAL: He is obese, appears comfortable. His speech is somewhat slurred. VITAL SIGNS: He is afebrile. Pulse is 81, blood pressure 182/87. HEENT: Conjunctivae clear. NECK: Supple. No adenitis or thyromegaly noted. CARDIOVASCULAR: Normal heart sounds. LUNGS: Clear to auscultation. ABDOMEN: Soft, but distended. Abdomen is mildly tender over the right upper quadrant, right colon area. The tenderness is very minimal. No rebound or guarding. No organomegaly. No masses. 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 LABORATORY DATA: Today, CBC; WBC 10,500, hemoglobin 14.5, hematocrit 42.7, MCV 88.8, platelet count is 143,000, polymorphs 71, lymphocytes 15, monocytes 10. Chemistry panel; sodium 139, potassium 3.4, chloride 108, bicarb 25, BUN is 22, creatinine 0.83, glucose is 127. Calcium 8, phosphorus 1.9, bilirubin 0.9, AST 43, ALT 29, alkaline phosphatase 55, albumin 3. Abdominal CAT scan shows some pericolonic inflammatory changes in the sigmoid colon and also right colon. There was also fluid-filled, air-fluid level in the small bowel. The renal interpretation was enterocolitis. CLINICAL IMPRESSION: A 73-year-old male with previous cerebrovascular accident with dense hemiplegia. He presents with altered mental status, hypotension, and also diarrhea. The GI finding is that his symptoms are very minimal. His diarrhea is actually only 1 stool per day. Does complain of some abdominal pain and some nausea, does not feel like eating. It is possible that the patient could have had either infectious diarrhea versus ischemic colitis. The family is not available at the present time. My recommendation is to treat him symptomatically. I will discuss with family and see whether they want to be aggressive in pursuing . In the meantime, we will also recommend some symptomatic treatment. Job ID: [id number]
[2019-08-23] MEDS: Ondansetron PF 4 MG/2 ML Vial IVP PRN (05:37)
[2019-08-23 05:38] LABS: #Lymphocytes 1.2 thou/uL (1.20-3.40); #Monocytes 0.7 thou/uL (0.11-0.59); #Neutrophils 7.5 thou/uL (1.40-6.50); %Basophils 0.1 % (0.0-1.0); %Eosinophils 0.3 % (0.0-10.0); %Lymphocytes 12.7 % (21.0-51.0); %Monocytes 7.6 % (0.0-10.0); %Neutrophils 79.3 % (42.0-75.0); Hemoglobin 16.6 g/dL (14.0-18.0); Mean Corpuscular HGB CONC 33.1 g/dL (32.0-36.0); Mean Corpuscular Hemoglobin 30.1 pg (27.0-31.0); Mean Corpuscular Volume 90.9 fL (78.0-98.0); Mean Platelet Volume 8.9 fL (7.4-10.4); Platelet Count 206 thou/uL (130-400); RBC Distribution Width 12.2 % (11.5-14.5); Red Blood Cell (RBC) Count 5.51 mill/uL (4.70-6.10); White Blood Cell (WBC) Count 9.5 thou/uL (4.8-10.8)
[2019-08-23 06:16] LABS: ALT (SGPT) 26 U/L (8-55); AST (SGOT) 35 U/L (5-34); Albumin 3.2 g/dL (3.4-4.8); Alkaline Phosphatase 73 U/L (40-110); Anion Gap 15 mmol/L (10-20); BUN (Urea Nitrogen) 19 mg/dL (8.4-25.7); Bilirubin, Total 0.8 mg/dL (0.2-1.2); Calc. Creatinine Clearance 126 mL/min (70-130); Carbon Dioxide 21 mmol/L (23-31); Chloride 109 mmol/L (98-107); Estimated GFR-MDRD Greater than 90; Globulin 2.7 g/dL (2.4-3.5); Glucose 164 mg/dL (83-110); Magnesium 1.8 mg/dL (1.6-2.6); Potassium 3.7 mmol/L (3.5-5.1); Protein, Total 5.9 g/dL (5.8-8.1); Sodium 141 mmol/L (136-145)
[2019-08-23] MEDS ORDERED: Lorazepam 2 MG/ML VIAL SLOW IVP SCH (07:00)
[2019-08-23] MEDS: FLUoxetine HCl 20 MG CAP PO SCH (08:27)
[2019-08-23] MEDS: Aspirin 81 mg Enteric Coated Tablet PO SCH (08:27)
[2019-08-23] MEDS: Carvedilol 6.25 MG TAB PO SCH ×2 (08:27→16:46)
[2019-08-23] MEDS: MEROPENEM 1 GM/50 ML 1 GM in Premix Bag 1 BAG IVPB SCH ×2 (08:28→14:58)
[2019-08-23] MEDS: Sodium Chloride 0.9% 1,000 ML IV SCH (08:32)
[2019-08-23] MEDS: Diltiazem 125 MG in Sodium Chloride 0.9% 100 ML IVPB SCH (09:57)
--- NOTE | 2019-08-23 10:45 | PDOC.HOSPP ---
- Subjective Encounter Date: 08/23/19 Encounter Time: 10:35 Subjective: f/u for colitis presumed infectious vs ischemic on Meropenem. Nursing reports A- fib on Dilitiazem gtt but rate currently controlled. Appetite slow to improve. No diarrhea or fever. - Objective Vital Signs & Weight: Vital Signs (12 hours) Temp Pulse Resp BP BP BP Pulse Ox 08/23/19 08:27 179/85 H 08/23/19 08:00 98.5 F 75 18 179/85 H 92 L 08/23/19 03:48 98.1 F 72 18 157/84 H 93 L 08/22/19 23:52 98.2 F 86 18 162/86 H 96 Weight Admit Weight 226 lb 14.4 oz Weight 231 lb 4.8 oz I&O: 08/22/19 08/23/19 08/24/19 06:59 06:59 06:59 Intake Total 1967 1295 Output Total 1575 1050 300 Balance 392 -1050 995 Result Diagrams: 08/23/19 04:42 08/23/19 04:42 Additional Labs: Accuchecks 08/23/19 08/22/19 08/22/19 05:32 20:11 16:48 POC Glucose 160 H 153 H 156 H 08/22/19 10:48 POC Glucose 147 H Microbiology 08/19/19 18:00 Stool - Liquid Stool Culture - Final Pseudomonas aeruginosa 08/19/19 18:00 Stool - Liquid Campylobacter Antigen Assay - Final 08/19/19 18:00 Stool - Liquid Shiga Toxin Test - Final 08/19/19 18:00 Stool C. difficile GDH Antigen & Toxins - Final 08/19/19 12:42 Urine Straight Catheter Urine Culture - Final NO GROWTH AT 48 HOURS 08/19/19 12:54 Venous blood - Right Hand Blood Culture - Preliminary NO GROWTH AT 48 HOURS 08/19/19 12:38 Venous blood - Right Arm Blood Culture - Preliminary NO GROWTH AT 48 HOURS Laboratory Tests 08/19/19 08/20/19 16:02 15:40 COVID-19 PCR Not Detected Not Detected Radiology Reviewed by me: Yes (Echo - EF 40-45%) EKG Reviewed by me: Yes (Tele - A-fib in 70's) Hospitalist ROS - Medication Medications: Active Medications Generic Name Dose Route Start Last Admin Trade Name Freq PRN Reason Stop Dose Admin Aspirin 81 mg 08/20/19 09:00 08/23/19 08:27 Ecotrin PO 81 mg DAILY KATHAY Administration Atorvastatin Calcium 20 mg 08/19/19 21:00 08/22/19 21:03 Lipitor PO 20 mg HS KATHYA Administration Carvedilol 12.5 mg 08/22/19 08:00 08/23/19 08:27 Coreg PO 12.5 mg BID-WM KATHYA Administration Fluoxetine HCl 40 mg 08/20/19 09:00 08/23/19 08:27 Prozac PO 40 mg DAILY KATHYA Administration Gabapentin 100 mg 08/19/19 21:00 08/22/19 21:03 Neurontin PO 100 mg HS KATHYA Administration Sodium Chloride 1,000 mls @ 80 mls/hr 08/19/19 15:45 08/23/19 08:32 Normal Saline 0.9% IV 1,000 mls .[id number] KATHYA Administration Meropenem 1 gm/ Device 50 mls @ 100 mls/hr 08/20/19 15:00 08/23/19 08:28 IVPB 50 mls 0700,1500,2300 KATHYA Administration Diltiazem HCl 125 mg/ Sodium 125 mls @ 5 mls/hr 08/22/19 07:00 08/22/19 07:11 Chloride IVPB 125 mls INF KATHYA Administration 5 MG/HR Loperamide HCl 2 mg 08/21/19 06:47 08/21/19 07:19 Imodium PO 2 mg Q4H PRN Administration Diarrhea/Loose Stools Ondansetron HCl 4 mg 08/19/19 15:39 08/23/19 05:37 Zofran IVP 4 mg Q6H PRN Administration Nausea/Vomiting Pantoprazole Sodium 40 mg 08/20/19 09:00 08/23/19 08:27 Protonix PO 40 mg DAILY KATHYA Administration Rivaroxaban 20 mg 08/19/19 21:00 08/22/19 21:03 Xarelto PO 20 mg QPM KATHYA Administration Saccharomyces Boulardii 250 mg 08/22/19 21:00 08/22/19 21:04 Florastor PO 250 mg HS KATHYA Administration Sodium Chloride 10 ml 08/19/19 15:39 08/22/19 23:15 Flush - Normal Saline IVF 10 ml PRN PRN Administration Saline Flush - Exam General Appearance: NAD, awake alert Eye: PERRL, anicteric sclera ENT: normocephalic atraumatic, no oropharyngeal lesions Neck: supple, symmetric, no JVD, no thyromegaly, no lymphadenopathy Heart: no murmur, no gallops, no rubs, normal peripheral pulses, irregular Respiratory: CTAB, no wheezes, no rales, no ronchi, normal chest expansion Gastrointestinal: soft, non-tender, non-distended, normal bowel sounds, no palpable masses Extremities: no cyanosis, no clubbing, no edema Skin: normal turgor, no lesions Neurological: no new deficit Neurological - other findings: expressive dysphasia, hemiplegia Musculoskeletal: generalized weakness Psychiatric: normal affect, A&O x 3 Hosp A/P (1) Gastroenteritis Code(s): K52.9 - NONINFECTIVE GASTROENTERITIS AND COLITIS, UNSPECIFIED Status : Acute Plan: Suspected infectious, Pseudomonas spp isolated on stool cx, continue Meropenem (2) Sepsis Code(s): A41.9 - SEPSIS, UNSPECIFIED ORGANISM Status: Acute Qualifiers: Sepsis type: sepsis due to unspecified organism Sepsis acute organ dysfunction status: without acute organ dysfunction Qualified Code(s): A41.9 - Sepsis, unspecified organism Plan: Resolving, continue supportive mgmt (3) Atrial fibrillation with RVR Code(s): I48.91 - UNSPECIFIED ATRIAL FIBRILLATION Status: Acute Plan: New-onset, rate improved, wean off Diltiazem gtt, may consider Amiodarone, continue Xarelto/Coreg (4) Chronic anticoagulation Code(s): Z79.01 - PENITENTIARY (CURRENT) USE OF ANTICOAGULANTS Status: Chronic Plan: Continue Xarelto - Plan plan discussed w/ family, continue antibiotics, 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
--- NOTE | 2019-08-23 12:05 | MRI ---
MRI BRAIN WITHOUT CONTRAST: Date: 08/23/2019 INDICATION: TIA. Comparison made to prior CT of 03/10/2018. That exam revealed right temporal lobe infarct with second benitez hemorrhagic infarct in the right basal ganglia. No films since that time are available. FINDINGS: On today's exam, there is severe encephalomalacia/volume loss involving the right temporal lobe and p arasylvian region consistent with the prior hemorrhagic infarct noted on CT. There is prominent gliosis. Moderately severe chronic ischemic white matter change. Ex vacuo dilatati on of the right lateral ventricle. No evidence of restricted diffusion. No evidence of acute infarct or mass. Intracranial internal carotid arteries, proximal cerebral arteries, and basilar arteries show flow-vo ids. IMPRESSION: Encephalomalacia involving the right temporal and parasylvian regions with a large area of encephalom alacia in the right basal ganglia consistent with old infarcts. Surrounding gliosis and severe chroni c ischemic white matter changes again noted. No acute process apparent. POS: AGW
--- NOTE | 2019-08-23 12:56 | EKG ---
Test Reason : Blood Pressure : / mmHG Vent. Rate : 057 BPM Atrial Rate : 057 BPM P-R Int : 206 ms QRS Dur : 098 ms QT Int : 490 ms P-R-T Axes : 116 -16 151 degrees QTc Int : 476 ms Sinus bradycardia Prolonged QT Abnormal ECG Confirmed by MARISELA ROMO ([id number]), editor producer SHERYL KENNEDY ([id number]) on 08/23/2019 12:55:32 PM Referred By: Confirmed By:MARISELA Galarza
--- NOTE | 2019-08-23 14:25 | PRG ---
DATE OF SERVICE: 08/23/2019 SUBJECTIVE: This is a 73-year-old male with multiple medical problems including previous CVA, coronary artery disease, and diabetes. He came to ER after the patient noted that he was having nausea and vomiting, and also he was hypotensive. Since admission, he had an abdominal CAT scan, which revealed an evidence of what appears to be thickening of the left colon predominantly and some air-fluid levels in small bowel. The renal interpretation was enterocolitis. The patient has done well over the last couple of days. He was having nausea yesterday, but today, he is actually feeling better. He is having only 1 stool per day. He has some abdominal pain. He is eating better today. OBJECTIVE: VITAL SIGNS: He is afebrile. Pulse is 74 and blood pressure 148/77. CARDIOVASCULAR: Normal heart sounds. LUNGS: Clear to auscultation. ABDOMEN: Soft and distended. Abdomen is nontender today. His bowel sounds are active. LABORATORY DATA: From today, WBC 9500, hemoglobin 16.6, hematocrit 50.1, MCV 90.9, and platelet count is 206,000. His chemistry panel, normal lytes, glucose is 164, BUN is 19, AST 35, ALT 36, and alkaline phosphatase 73. RECOMMENDATIONS: 1. Continue supportive care. 2. We will sign off from today and please call us back if there is any development. Job ID: [id number]
[2019-08-23] MEDS: Atorvastatin Calcium 20 MG TAB PO SCH (21:10)
[2019-08-23] MEDS: Rivaroxaban 10 MG TAB PO SCH (21:10)
[2019-08-23] MEDS: Gabapentin 100 MG CAP PO SCH (21:10)
[2019-08-23] MEDS: Saccharomyces boulardii 250 MG CAP PO SCH (21:10)
[2019-08-24] MEDS ORDERED: Carvedilol 25 MG TAB PO SCH (00:15)
[2019-08-24] MEDS ORDERED: Sodium Chloride 0.9% 500 ML IV SCH (00:15)
[2019-08-24] MEDS: MEROPENEM 1 GM/50 ML 1 GM in Premix Bag 1 BAG IVPB SCH ×3 (01:27→14:34)
--- NOTE | 2019-08-24 03:43 | PDOC.EVN ---
Event Note - Event Note Event Note: Patient with increased abdominal distension and pain overnight. CT Abd/pelvis ordered which showed possible obstruction. Additional labs ordered, order for NGT to intermittent suction, NPO and general surgery consult added for am. Dr. Goodson made aware, plan discussed.
[2019-08-24] MEDS: Sodium Chloride 0.9% 1,000 ML IV SCH (04:29)
[2019-08-24] MEDS ORDERED: hydrALAZINE 20 MG/ML VIAL SLOW IVP SCH (04:30)
[2019-08-24 04:58] LABS: %Neutrophils 78.7 % (42.0-75.0); Hemoglobin 15.5 g/dL (14.0-18.0); Mean Corpuscular HGB CONC 33.2 g/dL (32.0-36.0); Mean Corpuscular Hemoglobin 30.6 pg (27.0-31.0); Mean Corpuscular Volume 92.1 fL (78.0-98.0); Mean Platelet Volume 8.2 fL (7.4-10.4); Platelet Count 203 thou/uL (130-400); RBC Distribution Width 12.1 % (11.5-14.5); Red Blood Cell (RBC) Count 5.07 mill/uL (4.70-6.10); White Blood Cell (WBC) Count 11.7 thou/uL (4.8-10.8)
[2019-08-24 04:59] LABS: #Eosinphils 0.1 thou/uL (0.0-0.7); #Lymphocytes 1.5 thou/uL (1.20-3.40); #Monocytes 0.9 thou/uL (0.11-0.59); #Neutrophils 9.2 thou/uL (1.40-6.50); %Basophils 0.2 % (0.0-1.0); %Eosinophils 0.6 % (0.0-10.0); %Lymphocytes 12.6 % (21.0-51.0); %Monocytes 7.8 % (0.0-10.0)
[2019-08-24 05:16] LABS: ALT (SGPT) 26 U/L (8-55); AST (SGOT) 34 U/L (5-34); Albumin 2.8 g/dL (3.4-4.8); Alkaline Phosphatase 53 U/L (40-110); Anion Gap 14 mmol/L (10-20); BUN (Urea Nitrogen) 18 mg/dL (8.4-25.7); Bilirubin, Total 0.7 mg/dL (0.2-1.2); Calc. Creatinine Clearance 139 mL/min (70-130); Calcium 7.7 mg/dL (7.8-10.44); Carbon Dioxide 18 mmol/L (23-31); Chloride 111 mmol/L (98-107); Estimated GFR-MDRD Greater than 90; Globulin 2.8 g/dL (2.4-3.5); Glucose 154 mg/dL (83-110); Magnesium 1.7 mg/dL (1.6-2.6); Potassium 3.6 mmol/L (3.5-5.1); Protein, Total 5.6 g/dL (5.8-8.1); Sodium 139 mmol/L (136-145)
[2019-08-24] MEDS: Carvedilol 6.25 MG TAB PO SCH ×3 (08:12→14:52)
[2019-08-24] MEDS: Aspirin 81 mg Enteric Coated Tablet PO SCH (08:12)
[2019-08-24] MEDS: FLUoxetine HCl 20 MG CAP PO SCH (08:12)
--- NOTE | 2019-08-24 10:23 | CT ---
PRELIMINARY REPORT/[facility]/AFTER HOURS PROCEDURE Receipt of this report by the clinical staff was confirmed with Brenda Osorio RN by Imelda Cristina on 2019 02:53:00 CDT. Addendum electronically signed by Imelda Cristina on August 24, 2019 2:53:[address] ABDOMEN AND PELVIS WITH INTRAVENOUS CONTRAST: CLINICAL HISTORY: Distended abdomen/pain, enterocolitis TECHNIQUE: Axial computed tomography images of the abdomen and pelvis with intravenous contrast. CONTRAST: With Isovue-370 100 mL. COMPARISON: None provided. FINDINGS: Lung bases: No basilar airspace consolidation or pleural effusion. Heart is mildly enlarged. [place] ry calcifications are present. Liver: Unremarkable. Gallbladder and bile ducts: There are 2 small calcified gallstones present in the region of the gallb ladder neck. Gallbladder is mildly distended. No biliary ductal dilatation. Pancreas: Unremarkable. Spleen: Unremarkable. Adrenal glands: Unremarkable. Kidneys, ureters and bladder: Small stone is seen in the inferior pole of the left kidney. No other renal stones identified. There is a 3-4 mm stone seen in the right distal ureter at the level of the UVJ. There is mild upstream urinary tract dilatation. No stones identified within the left ureter or bladder. Bladder is decompressed by Velasquez catheter. There is symmetric renal enhancement without mass identified. Stomach and bowel: Query possible mild circumferential thickening of the descending colon and sigmoid which may be in part due to under distention. Gas is noted distending the transverse colon. The rig ht colon is filled with stool. The distal ileum at the level of the TI is decompressed and gradually increases in diameter to the likely proximal ileum/jejunum which begins to become dilated loops of s tacked bowel suggesting obstruction. Fluid air is noted distending the stomach. The esophagus is dis tended with fluid and additionally. Interloop fluid is noted in the small bowel. Appendix: No CT evidence for appendicitis. Peritoneum: No free air. Small amount of free fluid is noted within the abdomen with traces along th e margins of the liver and spleen and pericolic gutters. Lymph nodes: No lymphadenopathy. Reproductive: Unremarkable as visualized. Vasculature: No aortic aneurysm. Bones: No fracture or suspicious osseous abnormality. Generative changes of the spine and pelvis not ed. Abdominal wall and soft tissues: Mild anasarca changes noted. IMPRESSION: 1. Dilated loops of air-fluid filled small bowel in the central abdomen. No clear focal transition po int is identified. However, the small bowel appears to be decompressed at the mid to distal ileum. These findings are concerning for obstruction. 2. There is mild thickening of the descending and sigmoid colonic wall, this may be due to under dist ention however mild colitis is not entirely excluded. 3. Large stool blood noted in the right colon. 4. Nonobstructing right-sided nephrolith with a 3-4 mm stone seen in the distal right ureter at the l evel of the UVJ. Minimal upstream urinary tract dilatation noted. 5. Cholelithiasis noting 2 stones in the region of the gallbladder neck. Gallbladder is mildly disten ded without apparent wall thickening. 6. Small amount of ascites. ELECTRONICALLY SIGNED BY: Efrain Ibrahim DO Aug 24, 2019 2:28:22 AM CDT This report is intended for review by the ordering physician only, in accordance of law. If you recei ve this report in error, please call [facility] at [phone]. FINAL REPORT CT ABDOMEN AND PELVIS WITH IV CONTRAST: FINDINGS: Air and fluid filled dilated loops of small bowel involving the proximal and mid small bowel with nor mal caliber distal ileum. Findings would indicate a moderate to high-grade small bowel obstruction. Calculus in the distal right ureter is noted with only mild hydronephrosis. Dilated gallbladder with cholelithiasis. I am in agreement with the preliminary report. CODE QA POS: CHANTELL
[2019-08-24] MEDS ORDERED: Metoprolol Tartrate 5 MG/5 ML VIAL IVP SCH (11:08)
[2019-08-24] MEDS: Lactated Ringer's 1,000 ML IV SCH (11:58)
[2019-08-24] MEDS ORDERED: Dextrose 5 % And 0.9 % NaCl 1,000 ML IV SCH (12:15)
--- NOTE | 2019-08-24 12:16 | RAD ---
SUPINE ABDOMEN: INDICATIONS: Abdominal distention. FINDINGS: There are gas-filled dilated loops of small bowel in the mid abdomen. There is stool in the right col on and some scattered stool in the left colon. No mass effect or abnormal calcification. IMPRESSION: Gas-filled dilated loops of small bowel concerning for small bowel obstruction. POS: AGW
--- NOTE | 2019-08-24 13:48 | RAD ---
KUB: History: NG tube placement. FINDINGS: Dilated small bowel loops are seen. The NG tube is seen with the tip in the region of the second port ion of the duodenum. IMPRESSION: NG tube with the tip in the second portion of the duodenum. POS: SJDI
--- NOTE | 2019-08-24 13:59 | PDOC.HOSPP ---
- Subjective Encounter Date: 08/24/19 Encounter Time: 13:50 Subjective: f/u for abd pain and distention with SBO discovered by CT abd last pm. NGT was placed after multiple attempts and draining bilious fluid. - Objective Vital Signs & Weight: Vital Signs (12 hours) Temp Pulse Resp BP BP BP BP 08/24/19 11:00 97.6 F 76 18 161/82 H 08/24/19 08:15 08/24/19 07:32 98.4 F 94 18 161/96 H 08/24/19 07:10 161/96 H 08/24/19 04:38 95 231/111 H 08/24/19 03:18 98.3 F 99 20 246/115 H Pulse Ox 08/24/19 11:00 93 L 08/24/19 08:15 93 L 08/24/19 07:32 93 L 08/24/19 07:10 08/24/19 04:38 08/24/19 03:18 93 L Weight Admit Weight 226 lb 14.4 oz Weight 235 lb 1.6 oz I&O: 08/23/19 08/24/19 08/25/19 06:59 06:59 06:59 Intake Total 3995 Output Total 1050 500 900 Balance -1050 3495 -900 Result Diagrams: 08/24/19 04:47 08/24/19 04:47 Additional Labs: Accuchecks 08/24/19 08/24/19 08/23/19 10:39 05:29 21:12 POC Glucose 144 H 159 H 166 H 08/23/19 16:14 POC Glucose 154 H Microbiology 08/19/19 18:00 Stool - Liquid Stool Culture - Final Pseudomonas aeruginosa 08/19/19 18:00 Stool - Liquid Campylobacter Antigen Assay - Final 08/19/19 18:00 Stool - Liquid Shiga Toxin Test - Final 08/19/19 18:00 Stool C. difficile GDH Antigen & Toxins - Final 08/19/19 12:42 Urine Straight Catheter Urine Culture - Final NO GROWTH AT 48 HOURS 08/19/19 12:54 Venous blood - Right Hand Blood Culture - Preliminary NO GROWTH AT 48 HOURS 08/19/19 12:38 Venous blood - Right Arm Blood Culture - Preliminary NO GROWTH AT 48 HOURS Laboratory Tests 08/19/19 08/20/19 16:02 15:40 COVID-19 PCR Not Detected Not Detected Radiology Reviewed by me: Yes (CT abd/pel - + SBO) EKG Reviewed by me: Yes (Tele - A-fib in 's) Hospitalist ROS - Medication Medications: Active Medications Generic Name Dose Route Start Last Admin Trade Name Freq PRN Reason Stop Dose Admin Carvedilol 12.5 mg 08/23/19 17:00 08/24/19 11:24 Coreg PO Not Given TID-WM KATHYA Meropenem 1 gm/ Device 50 mls @ 100 mls/hr 08/20/19 15:00 08/24/19 08:15 IVPB 50 mls 0700,1500,2300 KATHYA Administration Lactated Ringer's 1,000 mls @ 100 mls/hr 08/24/19 11:45 08/24/19 11:58 Lactated Ringer's IV 1,000 mls .Q10H KATHYA Administration Ondansetron HCl 4 mg 08/19/19 15:39 08/23/19 05:37 Zofran IVP 4 mg Q6H PRN Administration Nausea/Vomiting Sodium Chloride 10 ml 08/19/19 15:39 08/23/19 21:11 Flush - Normal Saline IVF 10 ml PRN PRN Administration Saline Flush - Exam General Appearance: NAD, awake alert Eye: PERRL, anicteric sclera ENT: normocephalic atraumatic, no oropharyngeal lesions ENT - other findings: NGT in place Neck: supple, symmetric, no JVD, no thyromegaly Heart: no gallops, no rubs, normal peripheral pulses, irregular Heart - other findings: S1, S2 Respiratory: CTAB, no wheezes, no rales, no ronchi, normal chest expansion Gastrointestinal: soft, non-distended, no palpable masses, no guarding, diminished bowl sounds Extremities: no cyanosis, no clubbing, no edema Skin: normal turgor, no lesions Neurological - other findings: expressive dysphasia, hemiplegia Musculoskeletal: generalized weakness Psychiatric: A&O x 3 Hosp A/P (1) SBO (small bowel obstruction) Code(s): K56.609 - UNSP INTESTNL OBST, UNSP TO PARTIAL VERSUS COMPLETE OBST Status: Acute Plan: s/p NGT placement, continue NGT drainage, serial abd exams, NPO (2) Gastroenteritis Code(s): K52.9 - NONINFECTIVE GASTROENTERITIS AND COLITIS, UNSPECIFIED Status : Acute Plan: Presumed infectious vs ischemic, continue Meropenem (3) Sepsis Code(s): A41.9 - SEPSIS, UNSPECIFIED ORGANISM Status: Acute Qualifiers: Sepsis type: sepsis due to unspecified organism Sepsis acute organ dysfunction status: without acute organ dysfunction Qualified Code(s): A41.9 - Sepsis, unspecified organism (4) Atrial fibrillation with RVR Code(s): I48.91 - UNSPECIFIED ATRIAL FIBRILLATION Status: Acute Plan: Rate-controlled currently, continue IV Metoprolol, resume Coreg when tolerating po intake (5) Chronic anticoagulation Code(s): 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
--- NOTE | 2019-08-24 14:08 | PRG ---
DATE OF SERVICE: 08/24/2019 SUBJECTIVE: This is a 73-year-old male status post CVA, residual left-sided weakness. He also has had heart disease and sees Dr. Barber. He was hospitalized because of vomiting 3 or 4 times and also one episode of large brownish stool in the ER. Abdominal CAT scan done shows some thickening of the left colon and some fluid retention in small bowel possibly read as enterocolitis. The patient has done well over the next 2 days. We actually signed off yesterday after he was doing well, he was eating well, and he had stool, nausea, vomiting. Last night he developed some abdominal distention, abdominal bloating, and he had an abdominal CAT scan done, which shows findings of SBO. NG tube was placed after multiple times and he only then delivered 10 mL. Unfortunately, he pulled out the NG tube. He was seen in the room along with the patient's and also Dr. Castellon. The CAT scan shows markedly dilated stomach and also small bowel loops. An NG tube was placed at bedside and he drained 500 to 600 mL of dark fluid. The patient appears comfortable. Denies any abdominal pain. PHYSICAL EXAMINATION: GENERAL: He is obese, appears comfortable, in no acute distress. VITAL SIGNS: Stable. Pulse is 94, blood pressure is 160/96. Afebrile. CARDIOVASCULAR: Normal heart sounds. LUNGS: Clear to auscultation. ABDOMEN: Soft and nontender. LABORATORY DATA: WBC 65359, hemoglobin is 15.5, hematocrit 46.7, MCV , platelet count 203,000, polymorphs 78, lymphocytes 12. Serum chemistries, sodium 139, potassium 3.6, chloride 111, bicarb 18, BUN is 18, creatinine 0.68. Abdominal CAT scan showed dilated loops of small bowel, thickening of descending colon on CAT scan. Large amount of stool in the right colon, also a kidney stone, nonobstructing on the right side, gallstones without thickening of gallbladder wall, small amount of ascites. The was in the room and we discussed with the patient's about the possibility of bowel obstruction, ischemic bowel disease or possibly postop adhesions causing obstruction. She was explained about the plan of care which include NG tube, colon resection, IV fluids. Repeat x-rays tomorrow and possibly Gastrografin study later on. Dr. Correa has seen the patient before and Dr. Correa will assume care from tomorrow. Job ID: [id number]
--- NOTE | 2019-08-24 14:43 | CON ---
DATE OF CONSULTATION: HISTORY OF PRESENT ILLNESS: Andrae Werner is a 73-year-old male patient who lives at home with limited ambulation with a walker and requires assistance from his in mobility. He had a stroke in 2012, and Dr. Viraj Tai performed embolectomy. The patient is able to speak. In the hospital, he has been intermittently confused, but his states at home he is not. Prior to hospitalization, he had changes resulting in low blood pressure, lower extremity edema, slurred speech. He was evaluated, although he did not have any diarrhea at home. He had a large watery brown bowel movement in the hospital. CT scan of abdomen and pelvis on 08/19/2019 of admission revealed thickened left colon with some fluid-filled terminal ileum without dilatation, cholelithiasis, and prostate enlargement. He was seen by Dr. Morin, evaluated and felt to have possible gastroenteritis. He tolerated his diet, was having bowel movements. Dr. Morin signed off. He is followed by Dr. Hart who has performed a colonoscopy in 2011. The patient is on Xarelto for AFib and took that at home, but has not been on that since being in the hospital. In the hospital, he has had an MRI of the brain, which revealed encephalomalacia of temporal lobe and changes consistent with old infarcts, but no acute changes. He had ultrasound venogram that was unremarkable without DVT. He had some nausea and vomiting this morning. NG tube was placed, getting scant out, but the patient removed it. He remains distended and has had emesis. Repeat CAT scan of the abdomen and pelvis obtained this morning reveals markedly distended stomach with fluid and air. Small calcified gallstones in the gallbladder neck. No ductal dilatation. No inflammatory changes about the gallbladder. Right distal ureteral stone at the UPJ. Mild upstream urinary tract dilatation. There is some possible thickening of the descending colon and sigmoid colon, which may be due to under distention. Gas noted distending the transverse colon. The right colon is filled with stool. Distal ileum decompressed and gradually increases diameter to the proximal ileum and jejunum, which is dilated with air-fluid levels, possibly reflecting obstruction. Marked distention of the stomach noted as described above. Esophagus distended with fluid. Appendix appears to be normal. This is all concerning for obstruction based on radiological findings. Right-sided nonobstructing nephrolith with a 3 to 4 mm stone in the distal right ureter with mild proximal dilatation and asymptomatic cholelithiasis and small amount of ascites. ALLERGIES: NONE. MEDICATIONS: At home: 1. Flomax. 2. Metformin. 3. Carvedilol. 4. Aspirin. 5. Isosorbide. 6. Gabapentin. 7. Prozac. 8. Lisinopril. 9. Zocor. 10. Xarelto. 11. P.r.n. ordered in the hospital. PAST MEDICAL HISTORY: 1. 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 Viraj Tai in 2012. 2. BPH. 3. Hypertension. 4. History of tricuspid mass. 5. Dyslipidemia. 6. Diabetes mellitus, type 2. 7. Sleep apnea, on CPAP at home. 8. History of coronary artery disease, inferior wall [place] with multiple stent placements in 2005, followed with Dr. Barber. 9. History of pulmonary embolism in 03/2013. 10. Depression. 11. History of left upper extremity DVT, diagnosed in 11/2013. 12. GERD. 13. Allergic rhinitis. 14. Constipation. 15. Agent [place] exposure. PAST SURGICAL HISTORY: 1. Appendectomy. 2. Shrapnel removal when he was in the [employer] in [place], abdominal wall. 3. Hemorrhoidectomy. 4. Prior colonoscopy with Dr. Hart in 2011. 5. Cataract extractions. 6. Left shoulder lipoma removed in the past. FAMILY HISTORY: Father of [place] at age 40. Mother had a history of lung cancer and stroke. SOCIAL HISTORY: Smokeless tobacco use in the past, cessation. Alcohol and inhalational tobacco, none. Lives with his . Mainly, mobility is wheelchair, although transfers with a walker at times with assistance. He is a full code. The patient denies any abdominal pain. PHYSICAL EXAMINATION: VITAL SIGNS: Height 5 feet 8 inches, 235 pounds, temperature 98.4, heart rate 94, respirations 18, and blood pressure 161/96. HEAD, EARS, EYES, NOSE, AND THROAT: Unremarkable. LUNGS: Clear to auscultation. CARDIAC: Regular rate and rhythm without murmur or gallop. ABDOMEN: Soft, distended, nontender, tympanitic. EXTREMITIES: Mild edema. LABORATORY DATA: White count 11 and hemoglobin 15. Basic metabolic profile normal. Creatinine 0.68 and BUN 18. Liver function tests normal. Stool cultures negative. Blood cultures negative this admission. ASSESSMENT AND PLAN: 1. Abdominal distention. He denies any abdominal pain. He denies having any abdominal pain at home or currently in the hospital. His is with him as I interviewed him and she denies that he has complained of any abdominal pain. His CO2 today is 18; yesterday, it was 21; on admission, it was 18. Currently, the patient has Hep-Lock. Does not have IV fluids running. He is probably somewhat dehydrated. We would recommend NG tube. I have stressed that the patient needs somebody with him at all times to prevent removal of the NG tube. His is able to stay with him, but he will need a sitter when she needs to leave or be out of the room. Differential diagnosis includes ischemic bowel, but he does not have any abdominal pain, although they could be mass because of his past strokes. He is slightly acidotic. He has been on Xarelto, which has been held this hospitalization. 2. Atrial fibrillation, on Xarelto, held the Xarelto. 3. Mild acidosis. 4. Past stroke with limited mobility. 5. Past history of pulmonary embolism. 6. Past history of cerebral infarction. 7. Cardiomyopathy. Echocardiogram in this hospitalization, 40% to 45% ejection fraction, mild tricuspid and mitral regurgitation. At this point, I would recommend NG tube a 15-Thai low intermittent wall suction. This has been placed and he has already had quite a bit out the NG tube more than 500, it is placed to 65 cm. Abdominal x-ray has been obtained, confirming placement. The patient will be followed clinically. Risk of the possibility that the patient does not have any bowel sounds and most likely has an ileus. There is no evidence of UTI. Note, abdominal x-ray reveals NG tube could be advanced another 10 cm as the tip is barely in the stomach. Urine culture negative on 08/19/2019. Job ID: [id number]
[2019-08-24] MEDS: Metoprolol Tartrate 5 MG/5 ML VIAL IVP SCH (16:42)
[2019-08-25] MEDS: Lactated Ringer's 1,000 ML IV SCH (00:06)
[2019-08-25] MEDS: Metoprolol Tartrate 5 MG/5 ML VIAL IVP SCH ×5 (00:06→23:21)
[2019-08-25] MEDS: MEROPENEM 1 GM/50 ML 1 GM in Premix Bag 1 BAG IVPB SCH ×4 (00:48→23:20)
[2019-08-25 04:46] LABS: #Eosinphils 0.4 thou/uL (0.0-0.7); #Lymphocytes 1.7 thou/uL (1.20-3.40); #Monocytes 1.1 thou/uL (0.11-0.59); #Neutrophils 7.7 thou/uL (1.40-6.50); %Basophils 0.4 % (0.0-1.0); %Eosinophils 3.5 % (0.0-10.0); %Lymphocytes 15.9 % (21.0-51.0); %Neutrophils 70.3 % (42.0-75.0); Mean Corpuscular HGB CONC 34.9 g/dL (32.0-36.0); Mean Corpuscular Hemoglobin 31.3 pg (27.0-31.0); Mean Corpuscular Volume 89.7 fL (78.0-98.0); Mean Platelet Volume 7.8 fL (7.4-10.4); Platelet Count 197 thou/uL (130-400); Red Blood Cell (RBC) Count 4.48 mill/uL (4.70-6.10); White Blood Cell (WBC) Count 10.9 thou/uL (4.8-10.8)
[2019-08-25 05:08] LABS: ALT (SGPT) 23 U/L (8-55); AST (SGOT) 29 U/L (5-34); Albumin 2.9 g/dL (3.4-4.8); Alkaline Phosphatase 50 U/L (40-110); Anion Gap 10 mmol/L (10-20); BUN (Urea Nitrogen) 13 mg/dL (8.4-25.7); Bilirubin, Total 0.7 mg/dL (0.2-1.2); Calc. Creatinine Clearance 141 mL/min (70-130); Calcium 7.6 mg/dL (7.8-10.44); Carbon Dioxide 27 mmol/L (23-31); Chloride 108 mmol/L (98-107); Estimated GFR-MDRD Greater than 90; Globulin 2.2 g/dL (2.4-3.5); Glucose 132 mg/dL (83-110); Magnesium 1.5 mg/dL (1.6-2.6); Protein, Total 5.1 g/dL (5.8-8.1); Sodium 142 mmol/L (136-145)
[2019-08-25 05:13] LABS: Phosphorus 1.1 mg/dL (2.3-4.7)
[2019-08-25] MEDS ORDERED: Potassium Phosphate 30 MMOL in Sodium Chloride 0.9% 500 ML IVPB SCH (05:45)
[2019-08-25] MEDS ORDERED: Meropenem 1 GM in Sodium Chloride 0.9% 100 ML IVPB SCH (07:00)
[2019-08-25] MEDS: Carvedilol 6.25 MG TAB PO SCH ×3 (07:23→14:44)
--- NOTE | 2019-08-25 09:17 | RAD ---
SUPINE RADIOGRAPH UPPER ABDOMEN: DATE: 08/24/2019. HISTORY: Nasogastric tube placement. FINDINGS: Partially visualized upper abdomen demonstrates gaseous distention of the bowel. There is a nasogast janel tube curling within the upper epigastric region suggesting the nasogastric tube is within the bod y of the stomach. IMPRESSION: Gaseous distention of bowel. Nasogastric tube in the midline epigastric region. POS: [facility]
--- NOTE | 2019-08-25 09:29 | PRG ---
DATE OF SERVICE: 08/25/2019 SUBJECTIVE: Mr. Werner has had 1450 mL documented NG tube output over the past day. He evidently had 2 bowel movements overnight. He feels his abdomen is less distended and tight. No nausea or abdominal pain currently. OBJECTIVE: VITAL SIGNS: Temperature 98.9, pulse 93, blood pressure 178/94, and 92% oxygen saturation on room air. GENERAL: No acute distress, sitting up in bed comfortably. Nasogastric tube in place. HEART: Regular rate and rhythm. LUNGS: Clear to auscultation bilaterally. ABDOMEN: Mild distention, tympanitic. Bowel sounds are absent, but the abdomen is soft and nontender. EXTREMITIES: 1+ bilateral lower extremity edema. LABORATORY STUDIES: Sodium 142, potassium 3.0, BUN 13, creatinine 0.67, glucose 130, calcium 7.6, phosphorus 1.1, and magnesium 1.5. Total bilirubin 0.7, alkaline phosphatase 50, AST 29, ALT 23, and albumin 2.9. WBC 10.9, hemoglobin 14.0, and platelets 197. ASSESSMENT/PLAN: 1. Abdominal distention, small bowel obstruction versus ileus. 2. Vomiting, resolved with NG tube placement. I note the patient's CT seems most suggestive of small bowel obstruction, though clinically this may still represent an ileus. Regardless, he has had a large amount of nasogastric tube output over the past day, also had some bowel movements. The next step would be Gastrografin study with small bowel follow-through, we will leave the timing of this to the Surgical Service. In the meantime, continue nasogastric tube to low intermittent suction. Electrolyte replacement per Primary Service. Job ID: [id number]
--- NOTE | 2019-08-25 11:49 | PDOC.HOSPP ---
- Subjective Encounter Date: 08/25/19 Encounter Time: 11:35 Subjective: f/u for SBO s/p NGT placement with bilious drainage noted. Pt states less abd pain and distention. - Objective Vital Signs & Weight: Vital Signs (12 hours) Temp Pulse Resp BP BP Pulse Ox 08/25/19 10:59 98.4 F 102 H 20 133/97 H 94 L 08/25/19 07:22 98.9 F 93 20 178/94 H 92 L 08/25/19 04:32 98.6 F 96 16 150/85 H 94 L 08/25/19 00:00 98.5 F 102 H 18 179/92 H 92 L Weight Admit Weight 226 lb 14.4 oz Weight 230 lb 4.8 oz I&O: 08/24/19 08/25/19 08/26/19 06:59 06:59 06:59 Intake Total 3995 1190 Output Total 500 2700 Balance 3495 -1510 Result Diagrams: 08/25/19 04:38 08/25/19 04:38 Additional Labs: Accuchecks 08/25/19 08/25/19 08/24/19 10:21 05:12 19:46 POC Glucose 133 H 130 H 132 H 08/24/19 16:45 POC Glucose 148 H Microbiology 08/19/19 18:00 Stool - Liquid Stool Culture - Final Pseudomonas aeruginosa 08/19/19 18:00 Stool - Liquid Campylobacter Antigen Assay - Final 08/19/19 18:00 Stool - Liquid Shiga Toxin Test - Final 08/19/19 18:00 Stool C. difficile GDH Antigen & Toxins - Final 08/19/19 12:42 Urine Straight Catheter Urine Culture - Final NO GROWTH AT 48 HOURS 08/19/19 12:54 Venous blood - Right Hand Blood Culture - Preliminary NO GROWTH AT 48 HOURS 08/19/19 12:38 Venous blood - Right Arm Blood Culture - Preliminary NO GROWTH AT 48 HOURS Laboratory Tests 08/19/19 08/20/19 16:02 15:40 COVID-19 PCR Not Detected Not Detected EKG Reviewed by me: Yes (Tele - A-fib in 70's) Hospitalist ROS - Medication Medications: Active Medications Generic Name Dose Route Start Last Admin Trade Name Freq PRN Reason Stop Dose Admin Carvedilol 12.5 mg 08/23/19 17:00 08/25/19 10:23 Coreg PO Not Given TID-WM KATHYA Meropenem 1 gm/ Device 50 mls @ 100 mls/hr 08/25/19 07:00 08/25/19 07:26 IVPB 50 mls 0700,1500,2300 KATHYA Administration Metoprolol Tartrate 5 mg 08/24/19 17:00 08/25/19 11:31 Lopressor IVP 5 mg 0500,1100,1700,2300 KATHYA Administration Ondansetron HCl 4 mg 08/19/19 15:39 08/23/19 05:37 Zofran IVP 4 mg Q6H PRN Administration Nausea/Vomiting Sodium Chloride 10 ml 08/19/19 15:39 08/25/19 04:42 Flush - Normal Saline IVF 10 ml PRN PRN Administration Saline Flush - Exam General Appearance: NAD, awake alert Eye: PERRL, anicteric sclera ENT: normocephalic atraumatic, no oropharyngeal lesions ENT - other findings: NGT in place with bile drainage Neck: supple, symmetric, no JVD, no thyromegaly Heart: no murmur, no gallops, no rubs, normal peripheral pulses, irregular Heart - other findings: S1, S2 Respiratory: CTAB, no wheezes, no rales, no ronchi, normal chest expansion Gastrointestinal: soft, non-tender, no guarding, diminished bowl sounds Gastrointestinal - other findings: mild distention Extremities: no cyanosis, no clubbing, no edema Skin: normal turgor, no lesions Neurological - other findings: expressive dysphasia, L hemiplegia Musculoskeletal: generalized weakness Psychiatric: A&O x 3, flat affect Hosp A/P (1) SBO (small bowel obstruction) Code(s): K56.609 - UNSP INTESTNL OBST, UNSP TO PARTIAL VERSUS COMPLETE OBST Status: Acute Plan: Continue NGT with LIWS, repeat KUB in am (2) Gastroenteritis Code(s): K52.9 - NONINFECTIVE GASTROENTERITIS AND COLITIS, UNSPECIFIED Status : Acute Plan: Suspected but now resolving, ? ischemic component (3) Sepsis Code(s): A41.9 - SEPSIS, UNSPECIFIED ORGANISM Status: Acute Qualifiers: Sepsis type: sepsis due to unspecified organism Sepsis acute organ dysfunction status: without acute organ dysfunction Qualified Code(s): A41.9 - Sepsis, unspecified organism (4) Atrial fibrillation with RVR Code(s): I48.91 - UNSPECIFIED ATRIAL FIBRILLATION Status: Acute Plan: Rate-controlled currently, continue Metoprolol and convert to po options when taking oral (5) Chronic anticoagulation Code(s): Z79.01 - LONGTERM (CURRENT) USE OF ANTICOAGULANTS Status: Chronic Plan: Xarelto on hold pending po intake - Plan continue antibiotics, PT/OT, social work therapist, speech therapy, DVT proph w/SCDs Stable currently Continue Meropenem IV Continue Metoprolol IV Continue NGT with LIWS, serial abd exams, KUB in am CM for HH options including PT/OT, may consider inpt rehab Xarelto on hold Hold Metformin another 24h due to poor po intake AM lab: CMP, CBC, Mg++, PO3
[2019-08-25] MEDS: Potassium Chloride 20 MEQ in Lactated Ringer's 1,000 ML IV SCH ×2 (14:07→14:44)
--- NOTE | 2019-08-25 16:18 | RAD ---
ABDOMEN 2 VIEWS: HISTORY: Small bowel dilatation. FINDINGS: An NG tube has been placed and is somewhat coiled within the stomach. The tip appears to be somewhat coiled back upon itself and is in the region of the fundus or upper body of the stomach. There are persistently abnormal dilated loops of small bowel with air fluid levels, certainly concerning for sm all bowel obstruction. There is some scattered gas and fecal material in the color, mostly solid fec al material in the right colon. No evidence for free intraperitoneal air. IMPRESSION: Persistent abnormally dilated small bowel loops with air fluid levels. Nasogastric tube is somewhat coiled within the stomach with the tip extending back into the region of the fundus or upper body. D epending upon concern, a followup Gastrografin small bowel study might be a consideration. POS: [facility]
--- NOTE | 2019-08-25 17:51 | PRG ---
DATE OF SERVICE: SUBJECTIVE: Mr. Werner had increased abdominal distention and CT of abdomen was repeated and there was an evidence of dilated loops of air fluid-filled small bowel in the central abdomen. No clear focal transition point identified, but there is some decompression at the mid to distal ileum. Dr. Castellon was consulted and at the time he did have abdominal pain and so NG tube was placed and we are monitoring it. At this time, he still has an NG tube in place. He is little bit confused, but no respiratory symptoms. He did not have any tenderness in the abdominal area. OBJECTIVE: VITAL SIGNS: His temperature is normal, BP 150/93, pulse 95, respirations 20, O2 saturation 96. GENERAL: Does not appear in acute distress. NG tube in place. LUNGS: Symmetric, clear breath sounds. HEART: S1 and S2, regular rate. ABDOMEN: Moderately distended. Bowel sounds are diminished. Did not have tenderness on palpation. LABORATORY DATA: White cell count of 10.9, hemoglobin 14, platelets 197 with 70% neutrophils. Liver profile normal. Magnesium was 1.5, albumin 2.9, potassium 3.0, and he had a KUB done this morning which showed abnormally dilated small bowel loops with air-fluid levels. ASSESSMENT AND DISCUSSION: Vascular disease; prior cerebrovascular accident; myocardial infarction; pulmonary embolism; chronic left hemiplegia, on Xarelto; enteritis; colitis; and now evidence of maybe some obstruction, although this is not clear, discontinue NG suction. Hopefully, we will improve, otherwise he will need laparoscopy or laparotomy to inspect the area. He may have a contrast study to see if there is passage of contrast through the potential area of stricture. Job ID: [id number]
--- NOTE | 2019-08-25 18:21 | PRG ---
DATE OF SERVICE: 08/25/2019 SUBJECTIVE: Mr. Werner is doing fairly better today. He feels better. His abdomen is not as distended. He has had a small bowel movement today. Abdominal x-rays reveal distended loops of small bowel, air-fluid levels, but he has quite a bit of constipation in the right colon and with retained stool and gas in his distal colon. White count is 10 and hemoglobin 14. Basic metabolic profile is normal with potassium of 3, which has been replaced parenteral. NG tube output yesterday 850, today 775 so far. OBJECTIVE: LUNGS: Clear to auscultation. CARDIAC: Regular rate and rhythm without murmur or gallop. ABDOMEN: Soft. Occasional bowel sounds. Reported bowel movement small as noted above. ASSESSMENT AND PLAN: Ileus versus bowel obstruction. At this point, we will plan small bowel follow-through, Gastrografin per NG tube tomorrow. He can have sips and chips to help him tolerate the tube. Hopefully, this process is self-limited and surgery is not indicated. Job ID: [id number]
[2019-08-25] MEDS: Enoxaparin Sodium 100 MG/ML SYRINGE SC SCH (20:31)
[2019-08-26 02:07] LABS: Band 6 % (5-11); Eosinophils 5 % (0-10); Hemoglobin 14.5 g/dL (14.0-18.0); Lymphocytes 18 % (21-51); MDiff Complete? YES; Mean Corpuscular HGB CONC 35.3 g/dL (32.0-36.0); Mean Corpuscular Hemoglobin 31.3 pg (27.0-31.0); Mean Corpuscular Volume 88.7 fL (78.0-98.0); Mean Platelet Volume 7.7 fL (7.4-10.4); Monocytes 12 % (0-10); Neutrophil 59 % (42-75); Platelet Count 203 thou/uL (130-400); RBC Distribution Width 11.9 % (11.5-14.5); Red Blood Cell (RBC) Count 4.61 mill/uL (4.70-6.10); White Blood Cell (WBC) Count 9.3 thou/uL (4.8-10.8)
[2019-08-26 02:12] LABS: ALT (SGPT) 22 U/L (8-55); AST (SGOT) 33 U/L (5-34); Albumin 2.9 g/dL (3.4-4.8); Alkaline Phosphatase 54 U/L (40-110); Anion Gap 14 mmol/L (10-20); BUN (Urea Nitrogen) 8 mg/dL (8.4-25.7); Bilirubin, Total 0.8 mg/dL (0.2-1.2); Calc. Creatinine Clearance 147 mL/min (70-130); Calcium 7.4 mg/dL (7.8-10.44); Carbon Dioxide 25 mmol/L (23-31); Chloride 105 mmol/L (98-107); Estimated GFR-MDRD Greater than 90; Globulin 2.6 g/dL (2.4-3.5); Glucose 126 mg/dL (83-110); Magnesium 1.5 mg/dL (1.6-2.6); Protein, Total 5.5 g/dL (5.8-8.1); Sodium 141 mmol/L (136-145)
[2019-08-26 02:21] LABS: Phosphorus 1.6 mg/dL (2.3-4.7)
[2019-08-26] MEDS ORDERED: Potassium Chloride 20 MEQ in Premix Bag 1 BAG IVPB SCH (02:30)
[2019-08-26] MEDS ORDERED: Magnesium 2 GM/50 ML 2 GM in Premix Bag 1 BAG IVPB SCH (02:30)
[2019-08-26] MEDS ORDERED: Potassium Phosphate 30 MMOL in Sodium Chloride 0.9% 500 ML IVPB SCH (03:15)
[2019-08-26] MEDS: Metoprolol Tartrate 5 MG/5 ML VIAL IVP SCH ×4 (04:01→22:28)
--- NOTE | 2019-08-26 07:37 | RAD ---
KUB: INDICATION: History of NG tube placement. FINDINGS: NG tube projects below the left hemidiaphragm and beyond the field of view. Previously, the catheter was coiled in the region of the stomach. There are dilated loops of gas-filled small bowel within t he upper abdomen. IMPRESSION: NG tube as above. POS: [facility]
[2019-08-26] MEDS: MEROPENEM 1 GM/50 ML 1 GM in Premix Bag 1 BAG IVPB SCH ×3 (07:52→22:27)
[2019-08-26] MEDS: Carvedilol 6.25 MG TAB PO SCH ×3 (07:59→18:27)
[2019-08-26] MEDS ORDERED: MD-Gastroview 120 ML BOT ONE (09:32)
[2019-08-26] MEDS: Enoxaparin Sodium 100 MG/ML SYRINGE SC SCH ×2 (09:39→22:27)
--- NOTE | 2019-08-26 13:35 | PRG ---
DATE OF SERVICE: 08/26/2019 SUBJECTIVE: Mr. Werner has no abdominal pain. He has not vomited over the last couple of days. Has an NG tube in place and is receiving a small-bowel follow-through Gastrografin through that now. He does not feel more distended or have abdominal pain. He did have a couple of bowel movements yesterday and also a bowel movement this afternoon. OBJECTIVE: VITAL SIGNS: Temperature 98.4, pulse 78, blood pressure 175/94. GENERAL: He is in no acute distress. Alert and oriented. LUNGS: Clear to auscultation bilaterally. HEART: Regular rate and rhythm without murmur. ABDOMEN: Soft. Mildly distended. Bowel sounds are present. EXTREMITIES: No lower extremity edema. IMPRESSION: Ileus. He is passing bowel movement and his abdomen appears to be less distended and he has had no further vomiting since NG tube placement. He is 2 hours into his Gastrografin study and the contrast still remains in the small bowel at this point. He has significant small bowel dilation. There appears to be stool over in the right colon. He is being followed by General Surgery as well. RECOMMENDATIONS: Await final results of the Gastrografin small-bowel follow-through. Job ID: [id number]
[2019-08-26] MEDS: Nitroglycerin 0.4mg/Hour PATCH TD SCH (13:38)
[2019-08-26] MEDS: Potassium Chloride 20 MEQ in Lactated Ringer's 1,000 ML IV SCH ×2 (13:39→23:31)
[2019-08-26] MEDS ORDERED: Potassium Chloride 40 MEQ in Sodium Chloride 0.9% 250 ML 250 ML IVPB SCH (14:45)
--- NOTE | 2019-08-26 15:03 | PRG ---
DATE OF SERVICE: 08/26/2019 SUBJECTIVE: Andrae Werner apparently, by report, dislodged his NG tube slightly, but radiologically this morning, it is in a good position. The patient states he is feeling better. He did have a small bowel movement yesterday. Gastric drainage through his NG tube overnight was 550 mL, 250 mL this morning. He denies having any pain. OBJECTIVE: VITAL SIGNS: Temperature 98.4 degrees, pulse 78, blood pressure 175/94. LUNGS: Clear to auscultation. CARDIAC: Regular rate and rhythm without murmur or gallop. ABDOMEN: Soft, distended, tympanitic. Nontender. No guarding. LABORATORY DATA: White count 9, hemoglobin 14. Sodium 141, potassium 3, BUN 8, and creatinine 0.64. Accu-Cheks 120 to 116. The patient is undergoing a small-bowel follow-through today. films revealed air-fluid levels, distended small bowel loops. 3-hour film reveals the bowel to be stagnant in the upper tract without progression. The patient has not had any nausea or vomiting, but he has significant dilatation of his small bowel. ASSESSMENT AND PLAN: Small-bowel obstruction. 3-hour film does not reveal any progression. More than likely, the patient will need operative intervention. If he does not empty by later today, we will place the NG tube to suction and plan laparoscopic possible open laparotomy, adhesiolysis tomorrow. Job ID: [id number]
--- NOTE | 2019-08-26 15:04 | PDOC.HOSPP ---
- Subjective Encounter Date: 08/26/19 Encounter Time: 15:00 Subjective: f/u for SBO with Gastrograffin in progress. NGT remains after apparently being pulled out inadvertently last pm. - Objective Vital Signs & Weight: Vital Signs (12 hours) Temp Pulse Resp BP BP Pulse Ox 08/26/19 13:55 184/106 H 08/26/19 13:50 187/99 H 08/26/19 13:45 188/102 H 08/26/19 12:20 98.4 F 78 20 175/94 H 93 L 08/26/19 07:20 98.4 F 86 20 169/91 H 96 Weight Admit Weight 226 lb 14.4 oz Weight 238 lb 3.2 oz I&O: 08/25/19 08/26/19 08/27/19 06:59 06:59 06:59 Intake Total 1190 Output Total 2699 Balance -1510 -2024 -250 Result Diagrams: 08/26/19 01:43 08/26/19 01:43 Additional Labs: Accuchecks 08/26/19 08/25/19 08/25/19 05:06 19:56 16:58 POC Glucose 116 H 123 H 133 H Radiology Reviewed by me: Yes (Gastrograffin SBFT - ) EKG Reviewed by me: Yes (Tele - A-fib) Hospitalist ROS - Medication Medications: Active Medications Generic Name Dose Route Start Last Admin Trade Name Freq PRN Reason Stop Dose Admin Carvedilol 12.5 mg 08/23/19 17:00 08/26/19 13:32 Coreg PO Not Given TID-WM KATHYA Enoxaparin Sodium 100 mg 08/25/19 21:00 08/26/19 09:39 Lovenox SC 100 mg 0900,2100 KATHYA Administration Meropenem 1 gm/ Device 50 mls @ 100 mls/hr 08/25/19 07:00 08/26/19 07:52 IVPB 50 mls 0700,1500,2300 KATHYA Administration Potassium Chloride 20 meq/ 1,010 mls @ 125 mls/hr 08/25/19 07:15 08/26/19 13: 39 Lactated Ringer's IV Not Given .Q8H5M KATHYA Metoprolol Tartrate 5 mg 08/24/19 17:00 08/26/19 13:45 Lopressor IVP 5 mg 0500,1100,1700,2300 KATHYA Administration Nitroglycerin 1 patch 08/26/19 09:00 08/26/19 13:38 Nitro-Dur 0.4mg/Hr Patch TD 1 patch DAILY KATHYA Administration Ondansetron HCl 4 mg 08/19/19 15:39 08/23/19 05:37 Zofran IVP 4 mg Q6H PRN Administration Nausea/Vomiting Sodium Chloride 10 ml 08/19/19 15:39 08/25/19 04:42 Flush - Normal Saline IVF 10 ml PRN PRN Administration Saline Flush - Exam General Appearance: awake alert Eye: PERRL, anicteric sclera ENT: normocephalic atraumatic, no oropharyngeal lesions ENT - other findings: NGT in place Neck: supple, symmetric, no JVD, no thyromegaly, no lymphadenopathy Heart: no gallops, no rubs, normal peripheral pulses, irregular Heart - other findings: S1, S2 Respiratory: CTAB, no wheezes, no rales, no ronchi, normal chest expansion Gastrointestinal: soft, no palpable masses, no guarding, distended, diminished bowl sounds Extremities: no cyanosis, no clubbing Skin: normal turgor, no lesions Neurological: no new deficit Neurological - other findings: expressive dysphasia, L hemiplegia Musculoskeletal: generalized weakness Psychiatric: A&O x 3, somnolent Hosp A/P (1) SBO (small bowel obstruction) Code(s): K56.609 - UNSP INTESTNL OBST, UNSP TO PARTIAL VERSUS COMPLETE OBST Status: Acute Plan: ? persistence, await final SBFT interpretation, continue NGT LIWS, NPO, Gen Surgery consulted (2) Gastroenteritis Code(s): K52.9 - NONINFECTIVE GASTROENTERITIS AND COLITIS, UNSPECIFIED Status : Acute Plan: Suspected, potential component of ischemic (3) Sepsis Code(s): A41.9 - SEPSIS, UNSPECIFIED ORGANISM Status: Acute Qualifiers: Sepsis type: sepsis due to unspecified organism Sepsis acute organ dysfunction status: without acute organ dysfunction Qualified Code(s): A41.9 - Sepsis, unspecified organism (4) Atrial fibrillation with RVR Code(s): I48.91 - UNSPECIFIED ATRIAL FIBRILLATION Status: Acute Plan: Rate-controlled currently, IV Metoprolol until tolerating po intake, Lovenox 100mg sc BID (5) Chronic anticoagulation Code(s): Z79.01 - GROUP HOME (CURRENT) USE OF ANTICOAGULANTS Status: Chronic - Plan continue antibiotics, PT/OT, social insurance specialist, out of bed/ambulate, DVT proph w/ SCDs Stable currently Continue Meropenem IV Continue Metoprolol IV Continue NGT with LIWS, serial abd exams, KUB in am, await SBFT interpretation CM for HH options including PT/OT, may consider inpt rehab Xarelto on hold, continue Lovenox 100mg sc BID Hold Metformin AM lab: CMP, Mg++, PO3
--- NOTE | 2019-08-26 15:57 | PDOC.FMACP ---
Advance Care Planning - Problem (1) Palliative care encounter Status: Acute Code(s): Z51.5 - ENCOUNTER FOR PALLIATIVE CARE (2) Atrial fibrillation with RVR Status: Acute Code(s): I48.91 - UNSPECIFIED ATRIAL FIBRILLATION (3) SBO (small bowel obstruction) Status: Acute Code(s): K56.609 - UNSP INTESTNL OBST, UNSP TO PARTIAL VERSUS COMPLETE OBST (4) Chronic anticoagulation Status: Chronic Code(s): Z79.01 - HALF-WAY (CURRENT) USE OF ANTICOAGULANTS - Note Participants: patient, palliative care Summary: Advanced Care Planning was discussed. The diagnosis, prognosis and goals of care were discussed. Appropriate forms and documentation to accomplish the goals of care were discussed. All questions were answered. The Palliative Care Team will be engaged to assist with completion of any outstanding forms that are needed. Palliative Care introduced Advanced Care Planning. Opportunity allowed to decline information. S Henrik complete MPOA, listing patient Chelsea as MPOA. Copies made and given to patient/spouse. Information provided in relation to Directive to Physicians, no desire to complete at this time. Time Spent (mins): 30
--- NOTE | 2019-08-26 16:38 | RAD ---
Small bowel follow-through Gastrografin HISTORY: Abdominal pain. Obstruction. FINDINGS: Approximately 120 cc Gastrografin was administered through the NG tube. Imaging was carried out to 4 hours, opacifying markedly dilated proximal jejunum. Extensively dilated gas-filled mid to distal small bowel also evident, although at 5 hours, contrast did not extend beyond the expected level of the jejunum. Fluoroscopic evaluation showed slight decrease in gastrointestinal motility, although the movement th at was seen should have been enough to move the contrast through nonobstructed bowel. IMPRESSION: Evidence of distal small bowel obstruction. The nurse did note that there was a recent large bowel movement. At 5 hours, contrast had not extended beyond the jejunum.
[2019-08-27] MEDS: Metoprolol Tartrate 5 MG/5 ML VIAL IVP SCH ×4 (04:50→23:53)
[2019-08-27 06:08] LABS: ALT (SGPT) 22 U/L (8-55); AST (SGOT) 30 U/L (5-34); Albumin 3.1 g/dL (3.4-4.8); Alkaline Phosphatase 55 U/L (40-110); Anion Gap 17 mmol/L (10-20); BUN (Urea Nitrogen) 8 mg/dL (8.4-25.7); Bilirubin, Total 1.1 mg/dL (0.2-1.2); Calc. Creatinine Clearance 143 mL/min (70-130); Calcium 7.7 mg/dL (7.8-10.44); Carbon Dioxide 26 mmol/L (23-31); Chloride 102 mmol/L (98-107); Estimated GFR-MDRD Greater than 90; Globulin 2.8 g/dL (2.4-3.5); Glucose 116 mg/dL (83-110); Magnesium 1.8 mg/dL (1.6-2.6); Potassium 3.2 mmol/L (3.5-5.1); Protein, Total 5.9 g/dL (5.8-8.1); Sodium 142 mmol/L (136-145)
[2019-08-27 06:44] LABS: Phosphorus 2.2 mg/dL (2.3-4.7)
[2019-08-27] MEDS ORDERED: Potassium Chloride 40 MEQ in Sodium Chloride 0.9% 250 ML 250 ML IVPB SCH (08:15)
--- NOTE | 2019-08-27 08:28 | RAD ---
Abdomen 2 views HISTORY: Abdomen pain. COMPARISON: Multiple exams back to CT from 08/24/2019. FINDINGS: Gas and fluid dilated loops of small bowel throughout the abdomen are similar in appearance to the prior study, with air-fluid levels, some differential, on the decubitus view. No evidence of free intraperitoneal gas. Some fecalization of material within the distal ileum in the right lower quadrant. Stool is again see n throughout the colon. Nasogastric tube projects over the right upper quadrant. Other findings are stable. IMPRESSION : Persistent small bowel dilatation. Findings concerning for distal small bowel obstruction.
[2019-08-27] MEDS: MEROPENEM 1 GM/50 ML 1 GM in Premix Bag 1 BAG IVPB SCH ×2 (08:48→18:03)
[2019-08-27] MEDS: Potassium Chloride 20 MEQ in Lactated Ringer's 1,000 ML IV SCH ×2 (08:50→18:52)
[2019-08-27] MEDS: Carvedilol 6.25 MG TAB PO SCH ×3 (08:50→18:07)
[2019-08-27] MEDS ORDERED: Bupivacaine HCl 0.5%/Epinephrine 1:200,000/PF 30 ml Vial ONE (10:24)
[2019-08-27] MEDS ORDERED: PHENYLEPHRINE-NS 100 MCG/ML 10 ML SYRINGE ONE (10:24)
[2019-08-27] MEDS ORDERED: Rocuronium Bromide 10 MG/ML (10ML VIAL) ONE (10:24)
[2019-08-27] MEDS ORDERED: PROPOFOL 200 MG/20 ML VIAL ONE (10:24)
[2019-08-27] MEDS: Enoxaparin Sodium 100 MG/ML SYRINGE SC SCH (10:46)
[2019-08-27] MEDS: Nitroglycerin 0.4mg/Hour PATCH TD SCH (10:47)
[2019-08-27] MEDS ORDERED: Meropenem 2 GM, Admixture Fee 1 EACH in Sodium Chloride 0.9% 100 ML IVPB SCH (11:30)
[2019-08-27] MEDS ORDERED: Lidocaine 1% (PF) 30 ML VIAL ONE (13:38)
[2019-08-27] MEDS ORDERED: Midazolam HCl 2 mg/2 ml Vial ONE (13:38)
[2019-08-27] MEDS ORDERED: Fentanyl 100 MCG/2 ML VIAL ONE ×2 (13:38→14:57)
--- NOTE | 2019-08-27 13:51 | PDOC.HOSPP ---
- Subjective Encounter Date: 08/27/19 Encounter Time: 11:05 Subjective: f/u for SBO with NGT/LIWS with plans for exp laparotomy today. No new issues reported. - Objective Vital Signs & Weight: Vital Signs (12 hours) Temp Pulse Pulse Pulse Resp BP BP 08/27/19 11:59 08/27/19 11:54 08/27/19 11:05 98.1 F 95 16 08/27/19 09:12 106 H 78 183/101 H 183/95 H 08/27/19 07:05 97.9 F 99 08/27/19 04:00 98.3 F 83 20 BP BP BP Pulse Ox 08/27/19 11:59 148/98 H 08/27/19 11:54 144/93 H 08/27/19 11:05 150/95 H 96 08/27/19 09:12 08/27/19 07:05 179/112 H 94 L 08/27/19 04:00 176/129 H 93 L Weight Admit Weight 226 lb 14.4 oz Weight 230 lb 4.8 oz I&O: 08/26/19 08/27/19 08/28/19 06:59 06:59 06:59 Intake Total 320 746 Output Total 6 4770 7467 Balance -9 -0560 -922 Result Diagrams: 08/26/19 01:43 08/27/19 04:54 Additional Labs: Accuchecks 08/27/19 08/27/19 08/26/19 10:18 04:24 20:08 POC Glucose 125 H 100 110 08/26/19 16:45 POC Glucose 134 H Microbiology 08/19/19 18:00 Stool - Liquid Stool Culture - Final Pseudomonas aeruginosa 08/19/19 18:00 Stool - Liquid Campylobacter Antigen Assay - Final 08/19/19 18:00 Stool - Liquid Shiga Toxin Test - Final 08/19/19 18:00 Stool C. difficile GDH Antigen & Toxins - Final 08/19/19 12:42 Urine Straight Catheter Urine Culture - Final NO GROWTH AT 48 HOURS 08/19/19 12:54 Venous blood - Right Hand Blood Culture - Preliminary NO GROWTH AT 48 HOURS 08/19/19 12:38 Venous blood - Right Arm Blood Culture - Preliminary NO GROWTH AT 48 HOURS Laboratory Tests 08/19/19 08/20/19 08/26/19 16:02 15:40 01:43 Phosphorus Magnesium 1.5 L COVID-19 PCR Not Detected Not Detected 08/26/19 01:43 Phosphorus 1.6 L Magnesium COVID-19 PCR Radiology Reviewed by me: Yes (ABD x-ray - persistent SBO) EKG Reviewed by me: Yes (Tele - A-fib) Hospitalist ROS - Medication Medications: Active Medications Generic Name Dose Route Start Last Admin Trade Name Freq PRN Reason Stop Dose Admin Carvedilol 12.5 mg 08/23/19 17:00 08/27/19 12:01 Coreg PO Not Given TID-WM KATHYA Enoxaparin Sodium 100 mg 08/25/19 21:00 08/27/19 10:46 Lovenox SC Not Given 0900,2100 KATHYA Meropenem 1 gm/ Device 50 mls @ 100 mls/hr 08/25/19 07:00 08/27/19 08:48 IVPB 50 mls 0700,1500,2300 KATHYA Administration Potassium Chloride 20 meq/ 1,010 mls @ 125 mls/hr 08/25/19 07:15 08/27/19 08: 50 Lactated Ringer's IV Not Given .Q8H5M KATHYA Metoprolol Tartrate 5 mg 08/24/19 17:00 08/27/19 11:54 Lopressor IVP 5 mg 0500,1100,1700,2300 KATHYA Administration Nitroglycerin 1 patch 08/26/19 09:00 08/27/19 10:47 Nitro-Dur 0.4mg/Hr Patch TD 1 patch DAILY KATHYA Administration Ondansetron HCl 4 mg 08/19/19 15:39 08/23/19 05:37 Zofran IVP 4 mg Q6H PRN Administration Nausea/Vomiting Sodium Chloride 10 ml 08/19/19 15:39 08/27/19 08:55 Flush - Normal Saline IVF 10 ml PRN PRN Administration Saline Flush - Exam General Appearance: NAD, awake alert Eye: PERRL, anicteric sclera ENT: normocephalic atraumatic, no oropharyngeal lesions ENT - other findings: NGT in place Neck: supple, symmetric, no JVD, no thyromegaly, no lymphadenopathy Heart: no gallops, no rubs, normal peripheral pulses, irregular Heart - other findings: S1, S2 Respiratory: CTAB, no wheezes, no rales, no ronchi, normal chest expansion Gastrointestinal: no palpable masses, diminished bowl sounds Gastrointestinal - other findings: distended, mild TTP Extremities: no cyanosis, no clubbing Skin: normal turgor Neurological: no new deficit Neurological - other findings: expressive dysphasia, L hemiplegia Musculoskeletal: generalized weakness Psychiatric: normal affect, A&O x 3 Hosp A/P (1) SBO (small bowel obstruction) Code(s): K56.609 - UNSP INTESTNL OBST, UNSP TO PARTIAL VERSUS COMPLETE OBST Status: Acute Plan: Persistent, plan for Exp laparotomy today, continue NGT with LIWS (2) Gastroenteritis Code(s): K52.9 - NONINFECTIVE GASTROENTERITIS AND COLITIS, UNSPECIFIED Status : Acute Plan: Resolved (3) Sepsis Code(s): A41.9 - SEPSIS, UNSPECIFIED ORGANISM Status: Acute Qualifiers: Sepsis type: sepsis due to unspecified organism Sepsis acute organ dysfunction status: without acute organ dysfunction Qualified Code(s): A41.9 - Sepsis, unspecified organism (4) Atrial fibrillation with RVR Code(s): I48.91 - UNSPECIFIED ATRIAL FIBRILLATION Status: Acute Plan: Rate-controlled currently (5) Chronic anticoagulation Code(s): Z79.01 - HEALTH PROMOTION MANAGER (CURRENT) USE OF ANTICOAGULANTS Status: Chronic Plan: Lovenox sc until able to tolerate po meds - Plan continue antibiotics, PT/OT, long term care social worker, speech therapy, DVT proph w/SCDs Consults: Palliative Care Stable currently Continue Meropenem IV Continue Metoprolol IV Continue NGT with LIWS, plan for exp lap CM for HH options including PT/OT, may consider inpt rehab Xarelto on hold, continue Lovenox 100mg sc BID Hold Metformin AM lab: CMP, Mg++, PO3
[2019-08-27] MEDS ORDERED: Bupivacaine PF 0.5% 30 ML VIAL ONE (14:01)
[2019-08-27] MEDS ORDERED: Lidocaine 1% w/Epinephrine 1:100K 20 ML VIAL ONE (14:01)
[2019-08-27] MEDS ORDERED: Ketamine 50 MG/ML (10ML VIAL) ONE (15:05)
[2019-08-27] MEDS ORDERED: Sodium Chloride 0.9% 10 ML ONE (15:24)
[2019-08-27] MEDS ORDERED: Albumin 5% 500 ML ONE (15:39)
--- NOTE | 2019-08-27 15:46 | PRG ---
DATE OF SERVICE: 08/27/2019 REASON FOR CONSULTATION: Abdominal pain, darker/black-colored stools. SUBJECTIVE: Overnight, the patient did have continued abdominal discomfort, but states that it is much improved with the institution of the NG tube. He has not had any further episodes of vomiting since the tube has been placed. However, yesterday evening, the patient did undergo a small bowel follow-through with findings consistent with a small-bowel obstruction and per Dr. Castellon's note, he is planned for surgical evaluation later on today in the operating room. Otherwise, the patient denies any vomiting, fevers, chills, hematemesis, melena, hematochezia, dysphagia, or odynophagia. OBJECTIVE: VITAL SIGNS: Temperature 98.1, pulse 95, blood pressure 148/98, respiratory rate 16, saturating 96% on room air. GENERAL: The patient was lying in bed, in no acute distress. Alert and oriented x4. RESPIRATORY: Clear to auscultation bilaterally. CARDIOVASCULAR: Regular rate and rhythm. ABDOMEN: Hypoactive bowel sounds. Soft, nontender, moderate to severe abdominal distention that was tympanic to percussion. EXTREMITIES: No cyanosis, clubbing, or edema. LABORATORY DATA: Chemistry with a sodium of 142, potassium 3.2, chloride 102, CO2 of 26, BUN 8, creatinine 0.68, glucose 116. AST 30, ALT 22, alkaline phosphatase 55, total bilirubin 1.1. IMAGING DATA: Small-bowel follow-through was obtained on August 26, 2019, which showed the contrast opacifying a markedly dilated proximal jejunum as well as showing extensively dilated and gas-filled mid to distal small bowel. However, at the end of 5 hours, contrast did not extend beyond the expected level of the jejunum consistent with a distal small-bowel obstruction. ASSESSMENT AND PLAN: The patient is a 73-year-old male with past medical history of cerebrovascular accident with left-sided hemiplegia, coronary artery disease, deep vein thrombosis with pulmonary embolism, coronary artery disease/myocardial infarction, hyperlipidemia, diabetes, cataracts, prostatomegaly, and colonic polyps, presenting with diarrhea, hypotension, abdominal distention, nausea and vomiting with imaging consistent with a small-bowel obstruction. Small bowel obstruction: The patient initially presented to the hospital with increasing diarrhea, slurred speech, hypotension, nausea, and vomiting with the initial CT scans concerning for colitis. However, during the course of this admission, he has had increased abdominal distention, worsening of his nausea and vomiting that was relieved with the placement of an NG tube. Further imaging of the small bowel revealed markedly dilated loops of small bowel with a transition point in the distal jejunum consistent with a small bowel obstruction. At this time, the etiology of his bowel obstruction is unknown, but he is slated later today for surgical evaluation of the region. RECOMMENDATIONS: 1. Agree with the General Surgery Service in taking the patient for laparoscopic evaluation of the small bowel obstruction. 2. Defer to primary team for pain control. 3. No endoscopic evaluation is indicated at this time with further management after surgery. We will sign off at this time. Please call with any additional questions or if the patient's condition changes. Job ID: [id number]
[2019-08-27] MEDS ORDERED: Ketorolac Tromethamine 30 MG/ML VIAL IVP PRN (17:44)
[2019-08-27] MEDS ORDERED: Fentanyl BOLUS 250 ML IVPB PRN (18:05)
[2019-08-27] MEDS ORDERED: Morphine 2 MG/ML SYRINGE SLOW IVP PRN (18:05)
[2019-08-27] MEDS ORDERED: DISCONTINUE PREVIOUS NARCOTIC PAIN MEDICATIONS AND BENZODIAZEPINES FS SCH (18:05)
[2019-08-27] MEDS ORDERED: fentaNYL Citrate/PF 2,000 MCG in Sodium Chloride 0.9% 60 ML IV SCH (18:05)
[2019-08-27] MEDS ORDERED: Propofol 1,000 MG/100 ML VIAL IV PRN (18:05)
[2019-08-27] MEDS ORDERED: Propofol BOLUS 1,000 MG/100 ML VIAL IV PRN (18:05)
[2019-08-27] MEDS ORDERED: Lorazepam 2 MG/ML VIAL SLOW IVP PRN (18:05)
[2019-08-27 18:07] LABS: Actual Bicarbonate (HCO3a) 25.6 mEq/L (22-28); CO2 Tension 36.5 mmHg (35.0-45.0); Carboxyhemoglobin (COHb) 1.1 gm% (0.0-3.0); O2 Tension (PaO2), arterial 87.9 mmHg (> 70.0); Potassium - ABG Lab 3.05 mmol/L (3.70-5.30); pH, Arterial 7.46 (7.35-7.45)
[2019-08-27 18:09] LABS: ALV-art Gradient 151.675 (0-20); Puncture Site LRA
--- NOTE | 2019-08-27 18:26 | RAD ---
SINGLE VIEW OF THE CHEST: 08/27/19 COMPARISON: 08/19/19. HISTORY: Ventilator patient. Central line placement. FINDINGS: Single view of the chest shows a normal sized cardiomediastinal silhouette. There is an endotracheal tube with its tip above the yuliya. An NG tube courses off the inferior aspect of the film. The right subclavian central venous catheter is seen with its tip at the atriocaval junction. No pneumothorax is seen. There is no evidence of consolidation, mass, or pleural effusion. IMPRESSION: Appropriate position of lines and tubes. POS: EAA
--- NOTE | 2019-08-27 20:52 | OP ---
DATE OF PROCEDURE: 08/27/2019 PREOPERATIVE DIAGNOSES: Small-bowel obstruction secondary to adhesions from appendectomy remotely, dementia, sleep apnea, poor IV access, obesity. POSTOPERATIVE DIAGNOSES: Small-bowel obstruction secondary to adhesions from appendectomy remotely, dementia, sleep apnea, poor IV access, obesity. PROCEDURES PERFORMED: Laparoscopic adhesiolysis, conversion to a mini-laparotomy infraumbilical with over-sew of serosal tears. Right subclavian vein triple-lumen catheter. The patient transferred to the ICU on the ventilator for slow wean. ANESTHESIA: General, TAP blocks. DESCRIPTION OF PROCEDURE: The patient was taken to the operating room, where under general anesthesia and TAP blocks, arterial line was placed and right subclavian vein triple-lumen catheter was placed. Right sandie-clavicular area was prepared with ChloraPrep and draped in routine fashion. Infraclavicular approach was used to cannulate the right subclavian vein, threading the J-wire, removing the trocar catheter, enlarging skin incision site. Using Seldinger technique, placed a triple-lumen catheter, removing the J-wire, securing the catheter with two interrupted sutures of 3-0 silk. Sterile dressing was applied. Each port aspirated and flushed with saline solution, and connected to IV fluid. The abdomen was clipped of hair, prepared with ChloraPrep, and draped in routine fashion. Left lateral subcostal incision was made. Pneumoperitoneum to 15 mmHg was obtained with a Veress needle, replaced with a 5 port. Left lateral mid abdominal incision was made, and a 5 port was placed. Left lower quadrant lateral incision was made, and 5 port was placed. Small bowel proximally was dilated, distally decompressed. There were adhesions into the pelvis consistent with his past appendectomy laparoscopically, these were taken down. There were very tight adhesions. There were some questionable serosal tears. Thus, a mini-laparotomy was undertaken. There were also some omental adhesions taken down with the LigaSure. LigaSure was used. Periumbilical and infraumbilical incision were made, carried down to skin, subcutaneous tissue, fascia and abdominal cavity sharply. The segment of small bowel in question was pulled out into the wound. The terminal ileum as it intersected with the cecum, had a serosal tear. These were oversewn with interrupted Lembert suture of 3-0 silk. Small bowel otherwise completely free and adhesive, obstructive process had been released. Prior to converting to laparotomy, the proximal small bowel had been inspected and there were no other adhesive bands. Sponge, needle, and instrument counts were correct. Midline fascia was closed with continuous suture of #1 PDS, subcutaneous tissues with 3-0 Monocryl, skin with subdermal 4-0 Monocryl. Laparoscopic port sites were closed with 4-0 Monocryl subcuticular. The patient tolerated the procedure well. Job ID: [id number]
[2019-08-28] MEDS: MEROPENEM 1 GM/50 ML 1 GM in Premix Bag 1 BAG IVPB SCH ×4 (00:16→23:07)
[2019-08-28] MEDS: Potassium Chloride 20 MEQ in Lactated Ringer's 1,000 ML IV SCH ×5 (03:06→21:28)
[2019-08-28 03:45] LABS: #Eosinphils 0.2 thou/uL (0.0-0.7); #Lymphocytes 1.8 thou/uL (1.20-3.40); #Monocytes 0.5 thou/uL (0.11-0.59); #Neutrophils 7.7 thou/uL (1.40-6.50); %Basophils 0.4 % (0.0-1.0); %Lymphocytes 17.5 % (21.0-51.0); %Neutrophils 75.1 % (42.0-75.0); Hemoglobin 13.1 g/dL (14.0-18.0); Mean Corpuscular HGB CONC 33.3 g/dL (32.0-36.0); Mean Corpuscular Hemoglobin 29.7 pg (27.0-31.0); Mean Corpuscular Volume 89.2 fL (78.0-98.0); Mean Platelet Volume 7.6 fL (7.4-10.4); Platelet Count 225 thou/uL (130-400); RBC Distribution Width 12.1 % (11.5-14.5); Red Blood Cell (RBC) Count 4.41 mill/uL (4.70-6.10); White Blood Cell (WBC) Count 10.2 thou/uL (4.8-10.8)
[2019-08-28 04:14] LABS: ALT (SGPT) 13 U/L (8-55); AST (SGOT) 18 U/L (5-34); Albumin 2.8 g/dL (3.4-4.8); Alkaline Phosphatase 41 U/L (40-110); Anion Gap 9 mmol/L (10-20); BUN (Urea Nitrogen) 9 mg/dL (8.4-25.7); Calc. Creatinine Clearance 143 mL/min (70-130); Calcium 7.1 mg/dL (7.8-10.44); Carbon Dioxide 28 mmol/L (23-31); Chloride 108 mmol/L (98-107); Estimated GFR-MDRD Greater than 90; Globulin 2.1 g/dL (2.4-3.5); Glucose 111 mg/dL (83-110); Magnesium 1.7 mg/dL (1.6-2.6); Phosphorus 2.5 mg/dL (2.3-4.7); Potassium 3.3 mmol/L (3.5-5.1); Protein, Total 4.9 g/dL (5.8-8.1); Sodium 142 mmol/L (136-145)
[2019-08-28] MEDS: Metoprolol Tartrate 5 MG/5 ML VIAL IVP SCH ×4 (05:56→22:05)
[2019-08-28 07:14] LABS: Actual Bicarbonate (HCO3a) 25.7 mEq/L (22-28); Base Excess (BEa) 2.4 mEq/L (-2.0 to +3.0); CO2 Tension 35.6 mmHg (35.0-45.0); Calcium, Ionized (arterial) 1.03 mmol/L (1.12-1.30); Hemoglobin (Hb) 13.1 g/dL (14.0-18.0); O2 Tension (PaO2), arterial 81.6 mmHg (> 70.0); Potassium - ABG Lab 3.37 mmol/L (3.70-5.30); pH, Arterial 7.48 (7.35-7.45)
[2019-08-28 07:15] LABS: Puncture Site LINE
--- NOTE | 2019-08-28 07:47 | RAD ---
Exam: Chest one view HISTORY:Respiratory distress. Ventilated patient. Comparison: 08/27/2019 FINDINGS: Lines and tubes: Redemonstration of endotracheal tube, nasogastric tube and right-sided vascular cath eter. Cardiac silhouette: Normal Aorta: Unremarkable Pulmonary vessels: Normal Costophrenic angles: Clear LUNGS: Chronic lung parenchymal changes. Pneumothorax: None Osseous abnormalities: None IMPRESSION: No significant interval change.
[2019-08-28] MEDS: Carvedilol 6.25 MG TAB PO SCH ×3 (08:37→17:15)
[2019-08-28] MEDS: Nitroglycerin 0.4mg/Hour PATCH TD SCH (08:37)
[2019-08-28] MEDS: Pantoprazole 40 MG VIAL IVP SCH (08:38)
[2019-08-28] MEDS ORDERED: Potassium Chloride 40 MEQ in Premix Bag 1 BAG IVPB SCH (09:00)
--- NOTE | 2019-08-28 09:00 | PDOC.HOSPP ---
- Subjective Encounter Date: 08/28/19 Encounter Time: 08:45 Subjective: f/u for SBO s/p laparotomy with lysis of adhesions, remaining on mech ventilation post-op. Receiving Meropenem and IVF's. Nursing reports low UOP. - Objective Vital Signs & Weight: Vital Signs (12 hours) Temp Pulse Resp BP 08/28/19 08:37 141/63 H 08/28/19 07:01 81 134/58 L 08/28/19 06:00 12 08/28/19 04:00 98.2 F 12 08/28/19 02:20 76 116/76 08/28/19 02:00 12 08/28/19 00:41 73 126/58 L 08/28/19 00:00 97.3 F L 12 08/27/19 22:29 80 136/60 08/27/19 22:00 12 Weight Admit Weight 226 lb 14.4 oz Weight 234 lb 12.677 oz Most Recent Monitor Data Heart Rate from ECG 90 NIBP 114/77 NIBP BP-Mean 89 Respiration from ECG 4 SpO2 96 I&O: 08/27/19 08/28/19 08/29/19 06:59 06:59 06:59 Intake Total 320 2359.5 Output Total 2625 2541 9 Balance -2305 -181.5 -9 Result Diagrams: 08/28/19 03:30 08/28/19 03:30 Additional Labs: Accuchecks 08/27/19 10:18 POC Glucose 125 H Radiology Reviewed by me: Yes (PCXR - no acute process, lines/tubes in position) EKG Reviewed by me: Yes (Tele - A-fib in 's) Hospitalist ROS - Medication Medications: Active Medications Generic Name Dose Route Start Last Admin Trade Name Freq PRN Reason Stop Dose Admin Carvedilol 12.5 mg 08/23/19 17:00 08/28/19 08:37 Coreg PO 12.5 mg TID-WM KATHYA Administration Meropenem 1 gm/ Device 50 mls @ 100 mls/hr 08/25/19 07:00 08/28/19 06:05 IVPB 50 mls 0700,1500,2300 KATHYA Administration Potassium Chloride 20 meq/ 1,010 mls @ 125 mls/hr 08/25/19 07:15 08/28/19 07: 25 Lactated Ringer's IV Not Given .[id number] KATHYA Fentanyl Citrate 2,000 mcg/ 100 mls @ 0 mls/hr 08/27/19 18:05 08/27/19 18:12 Sodium Chloride IV 09/26/19 18:05 100 mls INF KATHYA Administration Protocol Per Protocol Metoprolol Tartrate 5 mg 08/24/19 17:00 08/28/19 05:56 Lopressor IVP 5 mg 0500,1100,1700,2300 KATHYA Administration Nitroglycerin 1 patch 08/26/19 09:00 08/28/19 08:37 Nitro-Dur 0.4mg/Hr Patch TD 1 patch DAILY KATHYA Administration Ondansetron HCl 4 mg 08/19/19 15:39 08/23/19 05:37 Zofran IVP 4 mg Q6H PRN Administration Nausea/Vomiting Pantoprazole Sodium 40 mg 08/28/19 09:00 08/28/19 08:38 Protonix IVP 40 mg DAILY KATHYA Administration Sodium Chloride 10 ml 08/19/19 15:39 08/27/19 08:55 Flush - Normal Saline IVF 10 ml PRN PRN Administration Saline Flush - Exam General - other findings: opens eyes to name, tracks briefly, nods to questions Eye: PERRL, anicteric sclera ENT: normocephalic atraumatic, no oropharyngeal lesions ENT - other findings: ETT in place Neck: supple, symmetric, no JVD, no thyromegaly Heart: no murmur, no gallops, no rubs, normal peripheral pulses, irregular Heart - other findings: S1, S2 Respiratory: CTAB, no rales, no ronchi, no tachypnea Gastrointestinal: no palpable masses, distended, diminished bowl sounds Gastrointestinal - other findings: surgical incision intact Extremities: no cyanosis, no clubbing Skin: normal turgor Musculoskeletal: generalized weakness Psychiatric: oriented to person, somnolent Hosp A/P (1) SBO (small bowel obstruction) Code(s): K56.609 - UNSP INTESTNL OBST, UNSP TO PARTIAL VERSUS COMPLETE OBST Status: Acute Plan: s/p laparotomy with REGINE POD #1, continue serial abd exams, continue NGT with LIWS (2) Hypokalemia Code(s): E87.6 - HYPOKALEMIA Status: Acute Plan: KCL supplementation, serial K+ monitoring (3) Atrial fibrillation with RVR Code(s): I48.91 - UNSPECIFIED ATRIAL FIBRILLATION Status: Acute (4) Hypophosphatemia Code(s): E83.39 - OTHER DISORDERS OF PHOSPHORUS METABOLISM Status: Acute Plan: Improved, continue Phosphorous replacement (5) Sepsis Code(s): A41.9 - SEPSIS, UNSPECIFIED ORGANISM Status: Acute Qualifiers: Sepsis type: sepsis due to unspecified organism Sepsis acute organ dysfunction status: without acute organ dysfunction Qualified Code(s): A41.9 - Sepsis, unspecified organism (6) Chronic anticoagulation Code(s): Z79.01 - PENITENTIARY (CURRENT) USE OF ANTICOAGULANTS Status: Chronic (7) Gastroenteritis Code(s): K52.9 - NONINFECTIVE GASTROENTERITIS AND COLITIS, UNSPECIFIED Status : Acute - Plan continue antibiotics, respiratory therapy, DVT proph w/SCDs Stable currently Continue Meropenem IV Continue Metoprolol IV Continue NGT with LIWS, serial abd exams CM for HH options including PT/OT, may consider inpt rehab Anticoagulation on hold Hold Metformin CCU electrolyte protocol AM lab: CMP, CBC
[2019-08-28] MEDS ORDERED: Electrolyte Replacement Protoc 1 EACH EACH FS ONE (09:06)
[2019-08-28] MEDS ORDERED: Magnesium Oxide 400 MG TAB PO PRN ×2 (09:12)
[2019-08-28] MEDS ORDERED: Magnesium 2 GM/50 ML 2 GM in Premix Bag 1 BAG IVPB PRN (09:12)
[2019-08-28] MEDS ORDERED: PHOS-NAK 1 PKT PACK PO PRN ×2 (09:12)
[2019-08-28] MEDS ORDERED: Potassium Phosphate 15 MMOL in Sodium Chloride 0.9% 250 ML 250 ML IV PRN (09:12)
[2019-08-28] MEDS ORDERED: Potassium Chloride 40 MEQ in Premix Bag 1 BAG IVPB PRN (09:12)
[2019-08-28] MEDS ORDERED: Potassium Chloride 20 MEQ TAB PO PRN (09:12)
[2019-08-28] MEDS ORDERED: Potassium Phosphate 12 MMOL in Sodium Chloride 0.9% 250 ML 250 ML IV PRN (09:12)
[2019-08-28] MEDS ORDERED: CCU ELECTROLYTE REPLACEMENT PROTOCOL FS PRN (09:12)
[2019-08-28] MEDS ORDERED: Potassium Phosphate 9 MMOL in Sodium Chloride 0.9% 100 ML IVPB PRN (09:12)
[2019-08-28] MEDS ORDERED: Potassium Chloride 40 MEQ in Sodium Chloride 0.9% 250 ML 250 ML IVPB PRN (09:12)
[2019-08-28] MEDS ORDERED: Sodium Chloride 0.9% 500 ML IV SCH (14:30)
--- NOTE | 2019-08-28 14:41 | CON ---
DATE OF CONSULTATION: 08/28/2019 HISTORY OF PRESENT ILLNESS: Mr. Werner is a 73-year-old with bowel obstruction and required small laparotomy last night. He was slow to awaken, so he was left intubated. He is awake this morning, on a fentanyl drip and nodded quickly. He passed a leak test. He was in no distress. Vital signs were stable overnight. PAST MEDICAL HISTORY: 1. Reportedly remarkable for some early dementia. 2. History of CVA, treated with thrombectomy in 2012. 3. BPH. 4. History of hypertension. 5. History of tricuspid mass. 6. Lipid disorder. 7. Diabetes. 8. Sleep apnea, on CPAP. 9. History of coronary artery disease, status post inferior wall MO with multiple stents in 2005. 10. History of pulmonary embolism in 2013. 11. History of an upper extremity DVT in 2013. 12. History of allergic rhinitis. 13. Reflux disease. 14. History of Agent [place]. 15. History of an appendectomy. 16. History of shrapnel removal in [place]. 17. History of hemorrhoidectomy. FAMILY HISTORY: Negative for lung disease in early age. REVIEW OF SYSTEMS: Otherwise negative. PHYSICAL EXAMINATION: GENERAL: He is in no distress. He awakened. VITAL SIGNS: Heart rate was 95, blood pressure 133/85, respiratory rate is per mechanical ventilation. HEAD AND NECK: Unremarkable. LUNGS: Clear. HEART: Regular rhythm. S1 and S2 are normal. Grade 1 to 2/6 systolic murmur. ABDOMEN: Soft, slightly distended. He has a small midline incision below his umbilicus. His abdomen is otherwise unremarkable. EXTREMITIES: Without asymmetry. LABORATORY DATA: White count 10.2, hemoglobin 13.1, platelets 225. Electrolytes; sodium 142, potassium 3.3, chloride 108, bicarb 28, BUN 9, creatinine 0.66. PH 7.48, CO2 of 35, PO2 of 81. IMPRESSION: Overnight mechanical ventilation after a late surgery for bowel obstruction, clinically doing well. I felt he was a candidate for extubation. This has been done successfully. His chest x-ray is unremarkable. We will follow with the other physicians while he is in the Critical Care Unit. He probably needs to have his bring up his CPAP. Critical care time, 30 minutes. Job ID: [id number] MTDD
--- NOTE | 2019-08-28 14:59 | PRG ---
DATE OF SERVICE: 08/28/2019 SUBJECTIVE: Andrae Werner is doing well today. He has been extubated this morning, seen by Dr. [place]. He denies having any significant pain. OBJECTIVE: VITAL SIGNS: Temperature 98 degrees, blood pressure 141/63, heart rate 95. LUNGS: Clear to auscultation. CARDIAC: Regular rate and rhythm without murmur or gallop. ABDOMEN: Soft, protuberant. Diminished bowel sounds. NG tube, negligible output today postoperatively. EXTREMITIES: Unremarkable. LABORATORY DATA: Sodium 142, potassium 3.3, creatinine 0.66. White count 10, hemoglobin 13. ASSESSMENT AND PLAN: 1. Status post laparoscopy converted to laparotomy for bowel obstruction. If his NG tube comes out, we would leave it out. We would not replace it. However, we will leave his NG tube in currently open for more definitive bowel function before we electively remove it. 2. Deconditioning. reports he has been ambulating at home, although mobility diminished prior to this hospitalization. We will ask Physical Therapy to see him and evaluate him and ambulate him. He should be up in a chair 2 to 3 times a day. 3. Dementia. 4. I had talked to the regarding his code status. He does have a living will, which she will provide. She will discuss with family DNR issues. 5. Hypokalemia. Replace. Job ID: [id number]
[2019-08-28 18:40] LABS: Anion Gap 13 mmol/L (10-20); BUN (Urea Nitrogen) 10 mg/dL (8.4-25.7); Calc. Creatinine Clearance 148 mL/min (70-130); Calcium 7.4 mg/dL (7.8-10.44); Carbon Dioxide 25 mmol/L (23-31); Chloride 108 mmol/L (98-107); Estimated GFR-MDRD Greater than 90; Glucose 120 mg/dL (83-110); Potassium 4.2 mmol/L (3.5-5.1); Sodium 142 mmol/L (136-145)
[2019-08-28] MEDS ORDERED: Enoxaparin Sodium 40 MG/0.4 ML SYRINGE SC SCH (20:30)
[2019-08-28 20:34] LABS: #Eosinphils 0.3 thou/uL (0.0-0.7); #Lymphocytes 1.6 thou/uL (1.20-3.40); #Monocytes 0.6 thou/uL (0.11-0.59); #Neutrophils 8.4 thou/uL (1.40-6.50); %Basophils 0.4 % (0.0-1.0); %Eosinophils 2.5 % (0.0-10.0); %Lymphocytes 14.4 % (21.0-51.0); %Monocytes 5.4 % (0.0-10.0); %Neutrophils 77.3 % (42.0-75.0); Hemoglobin 13.2 g/dL (14.0-18.0); Mean Corpuscular HGB CONC 34.2 g/dL (32.0-36.0); Mean Corpuscular Hemoglobin 31.1 pg (27.0-31.0); Mean Corpuscular Volume 90.8 fL (78.0-98.0); Mean Platelet Volume 7.8 fL (7.4-10.4); Platelet Count 205 thou/uL (130-400); RBC Distribution Width 12.2 % (11.5-14.5); Red Blood Cell (RBC) Count 4.23 mill/uL (4.70-6.10); White Blood Cell (WBC) Count 10.9 thou/uL (4.8-10.8)
[2019-08-29] MEDS ORDERED: Propofol 1,000 MG/100 ML VIAL IV ONE
[2019-08-29] MEDS: Potassium Chloride 20 MEQ in Lactated Ringer's 1,000 ML IV SCH ×3 (03:20→10:14)
[2019-08-29 04:43] LABS: #Eosinphils 0.4 thou/uL (0.0-0.7); #Lymphocytes 1.8 thou/uL (1.20-3.40); #Monocytes 0.5 thou/uL (0.11-0.59); #Neutrophils 7.6 thou/uL (1.40-6.50); %Basophils 0.2 % (0.0-1.0); %Eosinophils 3.5 % (0.0-10.0); %Lymphocytes 17.1 % (21.0-51.0); %Monocytes 5.3 % (0.0-10.0); %Neutrophils 73.9 % (42.0-75.0); Hemoglobin 12.6 g/dL (14.0-18.0); Mean Corpuscular HGB CONC 33.9 g/dL (32.0-36.0); Mean Corpuscular Hemoglobin 30.9 pg (27.0-31.0); Mean Platelet Volume 8.5 fL (7.4-10.4); Platelet Count 211 thou/uL (130-400); RBC Distribution Width 12.2 % (11.5-14.5); Red Blood Cell (RBC) Count 4.07 mill/uL (4.70-6.10); White Blood Cell (WBC) Count 10.2 thou/uL (4.8-10.8)
[2019-08-29 05:07] LABS: ALT (SGPT) 14 U/L (8-55); AST (SGOT) 21 U/L (5-34); Albumin 2.7 g/dL (3.4-4.8); Alkaline Phosphatase 44 U/L (40-110); Anion Gap 10 mmol/L (10-20); BUN (Urea Nitrogen) 8 mg/dL (8.4-25.7); Bilirubin, Total 0.8 mg/dL (0.2-1.2); Calc. Creatinine Clearance 148 mL/min (70-130); Calcium 7.4 mg/dL (7.8-10.44); Carbon Dioxide 29 mmol/L (23-31); Chloride 107 mmol/L (98-107); Estimated GFR-MDRD Greater than 90; Globulin 2.3 g/dL (2.4-3.5); Glucose 104 mg/dL (83-110); Potassium 3.7 mmol/L (3.5-5.1); Sodium 142 mmol/L (136-145)
[2019-08-29] MEDS: MEROPENEM 1 GM/50 ML 1 GM in Premix Bag 1 BAG IVPB SCH ×3 (06:02→21:58)
[2019-08-29] MEDS: Metoprolol Tartrate 5 MG/5 ML VIAL IVP SCH ×4 (06:02→21:58)
[2019-08-29] MEDS: Enoxaparin Sodium 100 MG/ML SYRINGE SC SCH ×2 (08:17→21:14)
[2019-08-29] MEDS: Nitroglycerin 0.4mg/Hour PATCH TD SCH (08:18)
[2019-08-29] MEDS: Pantoprazole 40 MG VIAL IVP SCH (08:18)
[2019-08-29] MEDS: Carvedilol 6.25 MG TAB PO SCH ×3 (08:18→16:22)
[2019-08-29] MEDS ORDERED: traMADol HCl 50 MG TAB PO PRN (09:11)
[2019-08-29] MEDS ORDERED: Acetaminophen 500 MG TAB PO PRN (09:11)
[2019-08-29] MEDS ORDERED: Ibuprofen 600 MG TAB PO PRN (09:11)
--- NOTE | 2019-08-29 09:45 | PRG ---
DATE OF SERVICE: 08/29/2019 SUBJECTIVE: Andrae Werner is doing well today. He is in ICU. He was extubated yesterday morning. He is status post 08/27/2019 laparoscopy converted to laparotomy, infraumbilical, terminal ileal adhesions. He had serosal tears over-sew. NG tube output has been minimal over the last 12 hours. He has had small bowel movements. Plan is to remove his NG tube today. He does have intermittent atrial fibrillation. OBJECTIVE: VITAL SIGNS: Blood pressure 156/105, heart rate is 120 right now. Respiratory rate 18. GENERAL: He is communicative, appropriate. LUNGS: Clear to auscultation. CARDIAC: Regular rate and rhythm. No murmur or gallop. ABDOMEN: Soft, protuberant. Diminished bowel sounds. EXTREMITIES: Unremarkable. ASSESSMENT AND PLAN: Status post adhesiolysis. Plan, removal of NG tube. Begin clear liquids. Transfer to telemetry atrial fibrillation controlled per Medical. Dr. Olivas covering the weekend. I will return on Sunday. Physical Therapy should work with him up in a chair out of bed. Job ID: [id number]
[2019-08-29] MEDS ORDERED: Potassium Chloride 20 MEQ TAB PO SCH ×2 (10:00→18:00)
[2019-08-29] MEDS: Furosemide 40 MG/4 ML VIAL SLOW IVP SCH (10:14)
--- NOTE | 2019-08-29 13:14 | PDOC.HOSPP ---
- Subjective Encounter Date: 08/29/19 Encounter Time: 13:05 Subjective: f/u s/p SBO with lysis of adhesions POD #2. Initiated on clear liquids and NGT d /c'd. - Objective Vital Signs & Weight: Vital Signs (12 hours) Temp Pulse Resp BP BP Pulse Ox 08/29/19 11:20 98 18 149/84 H 96 08/29/19 08:18 165/102 H 08/29/19 08:00 98 F 112 H 14 128/109 H 98 08/29/19 07:00 97.7 F 08/29/19 04:00 97.7 F Weight Admit Weight 226 lb 14.4 oz Weight 223 lb 15.834 oz Most Recent Monitor Data Heart Rate from ECG 116 NIBP 137/112 NIBP BP-Mean 120 Respiration from ECG 3 SpO2 97 I&O: 08/28/19 08/29/19 08/30/19 06:59 06:59 06:59 Intake Total 2359.5 4128.9 686 Output Total 2541 1284 520 Balance -181.5 2844.9 166 Result Diagrams: 08/29/19 04:00 08/29/19 04:00 Additional Labs: Accuchecks 08/28/19 08/28/19 08/28/19 20:13 17:46 13:15 POC Glucose 113 H 117 H 115 H 08/27/19 21:30 POC Glucose 119 H Microbiology 08/19/19 18:00 Stool - Liquid Stool Culture - Final Pseudomonas aeruginosa 08/19/19 18:00 Stool - Liquid Campylobacter Antigen Assay - Final 08/19/19 18:00 Stool - Liquid Shiga Toxin Test - Final 08/19/19 18:00 Stool C. difficile GDH Antigen & Toxins - Final 08/19/19 12:42 Urine Straight Catheter Urine Culture - Final NO GROWTH AT 48 HOURS 08/19/19 12:54 Venous blood - Right Hand Blood Culture - Preliminary NO GROWTH AT 48 HOURS 08/19/19 12:38 Venous blood - Right Arm Blood Culture - Preliminary NO GROWTH AT 48 HOURS Laboratory Tests 08/19/19 08/20/19 08/26/19 16:02 15:40 01:43 Potassium Phosphorus Magnesium 1.5 L COVID-19 PCR Not Detected Not Detected 08/26/19 08/27/19 08/27/19 01:43 04:54 04:54 Potassium 3.2 L Phosphorus 1.6 L 2.2 L Magnesium COVID-19 PCR 08/28/19 03:30 Potassium Phosphorus 2.5 Magnesium 1.7 COVID-19 PCR EKG Reviewed by me: Yes (Tele - A-fib in 's) Hospitalist ROS - Medication Medications: Active Medications Generic Name Dose Route Start Last Admin Trade Name Freq PRN Reason Stop Dose Admin Carvedilol 12.5 mg 08/23/19 17:00 08/29/19 11:36 Coreg PO 12.5 mg TID-WM KATHYA Administration Enoxaparin Sodium 100 mg 08/29/19 09:00 08/29/19 08:17 Lovenox SC 100 mg 0900,2100 KATHYA Administration Furosemide 40 mg 08/29/19 09:00 08/29/19 10:14 Lasix SLOW IVP 40 mg DAILY KATHYA Administration Meropenem 1 gm/ Device 50 mls @ 100 mls/hr 08/25/19 07:00 08/29/19 06:02 IVPB 50 mls 0700,1500,2300 KATHYA Administration Potassium Chloride 20 meq/ 1,010 mls @ 65 mls/hr 08/29/19 09:15 08/29/19 10: 14 Lactated Ringer's IV 1,010 mls .[id number] KATHYA Administration Metoprolol Tartrate 5 mg 08/24/19 17:00 08/29/19 10:15 Lopressor IVP 5 mg 0500,1100,1700,2300 KATHYA Administration Nitroglycerin 1 patch 08/26/19 09:00 08/29/19 08:18 Nitro-Dur 0.4mg/Hr Patch TD 1 patch DAILY KATHYA Administration Ondansetron HCl 4 mg 08/19/19 15:39 08/23/19 05:37 Zofran IVP 4 mg Q6H PRN Administration Nausea/Vomiting Pantoprazole Sodium 40 mg 08/28/19 09:00 08/29/19 08:18 Protonix IVP 40 mg DAILY KATHYA Administration Sodium Chloride 10 ml 08/19/19 15:39 08/27/19 08:55 Flush - Normal Saline IVF 10 ml PRN PRN Administration Saline Flush - Exam General Appearance: NAD, awake alert Eye: PERRL, anicteric sclera ENT: normocephalic atraumatic, no oropharyngeal lesions Neck: supple, symmetric, no JVD, no thyromegaly, no lymphadenopathy Heart: no murmur, no gallops, no rubs, normal peripheral pulses, irregular Respiratory: CTAB, no wheezes, no rales, no ronchi, normal chest expansion Gastrointestinal: soft, non-tender, no palpable masses, diminished bowl sounds Gastrointestinal - other findings: mild distention Extremities: no cyanosis, no clubbing, no edema Skin: normal turgor Neurological - other findings: chronic L hemiplegia, expressive dysphasia Musculoskeletal: generalized weakness Psychiatric: oriented to person, somnolent Hosp A/P (1) SBO (small bowel obstruction) Code(s): K56.609 - UNSP INTESTNL OBST, UNSP TO PARTIAL VERSUS COMPLETE OBST Status: Acute Plan: s/p laparotomy with REGINE POD #2, continue local wound care, NGT d/c'd and started clear liquids (2) Hypokalemia Code(s): E87.6 - HYPOKALEMIA Status: Acute Plan: Resolving, continue monitoring (3) Atrial fibrillation with RVR Code(s): I48.91 - UNSPECIFIED ATRIAL FIBRILLATION Status: Acute Plan: Rate-controlled, continue Coreg/Lovenox (4) Hypophosphatemia Code(s): E83.39 - OTHER DISORDERS OF PHOSPHORUS METABOLISM Status: Acute Plan: Resolving (5) Sepsis Code(s): A41.9 - SEPSIS, UNSPECIFIED ORGANISM Status: Acute Qualifiers: Sepsis type: sepsis due to unspecified organism Sepsis acute organ dysfunction status: without acute organ dysfunction Qualified Code(s): A41.9 - Sepsis, unspecified organism (6) Chronic anticoagulation Code(s): Z79.01 - ASSISTED (CURRENT) USE OF ANTICOAGULANTS Status: Chronic Plan: Resume Xarelto when tolerating consistent po intake, continue Lovenox - Plan continue antibiotics, director of social work, speech therapy, incentive spirometry, DVT proph w/SCDs Stable currently Continue Meropenem IV Continue Coreg 12.5mg BID Continue Lovenox and will transition to Xarelto in next 24-48h CM for HH options including PT/OT, may consider inpt rehab CCU electrolyte protocol Clear liquids advancing to full in next 24h AM lab: CMP
--- NOTE | 2019-08-29 14:41 | PRG ---
DATE OF SERVICE: 08/29/2019 SUBJECTIVE: Andrae Werner says he is feeling better. He does not recall being extubated yesterday or at the operation. He is getting ready to walk with physical therapy. OBJECTIVE: VITAL SIGNS: Blood pressure 149/84, heart rate 78, respiratory rate 18, and oximetry 96% on room air. LUNGS: Clear. HEART: Regular rhythm. ABDOMEN: Soft, surprisingly minimally tender. His NG tube is out. IMPRESSION: 1. Status post lysis of adhesions with a small laparotomy incision. 2. Atrial fibrillation. 3. Clinical sepsis, resolved. PLAN: Continue supportive care and increase his activity. He is not hypoxic and having no respiratory issues since he has moved out of the Critical Care Unit, so we will sign off. Job ID: [id number]
[2019-08-29] MEDS ORDERED: Magnesium 2 GM/50 ML 2 GM in Premix Bag 1 BAG IVPB SCH (23:59)
[2019-08-30] MEDS: Potassium Chloride 20 MEQ in Lactated Ringer's 1,000 ML IV SCH ×2 (00:47→17:00)
[2019-08-30 05:11] LABS: ALT (SGPT) 16 U/L (8-55); AST (SGOT) 24 U/L (5-34); Albumin 2.8 g/dL (3.4-4.8); Alkaline Phosphatase 49 U/L (40-110); Anion Gap 13 mmol/L (10-20); BUN (Urea Nitrogen) 5 mg/dL (8.4-25.7); Bilirubin, Total 0.8 mg/dL (0.2-1.2); Calc. Creatinine Clearance 135 mL/min (70-130); Calcium 7.7 mg/dL (7.8-10.44); Carbon Dioxide 28 mmol/L (23-31); Chloride 102 mmol/L (98-107); Estimated GFR-MDRD Greater than 90; Globulin 2.6 g/dL (2.4-3.5); Glucose 119 mg/dL (83-110); Potassium 3.9 mmol/L (3.5-5.1); Protein, Total 5.4 g/dL (5.8-8.1); Sodium 139 mmol/L (136-145)
[2019-08-30] MEDS: Metoprolol Tartrate 5 MG/5 ML VIAL IVP SCH ×4 (05:18→22:56)
[2019-08-30] MEDS: MEROPENEM 1 GM/50 ML 1 GM in Premix Bag 1 BAG IVPB SCH (06:03)
[2019-08-30] MEDS: Enoxaparin Sodium 100 MG/ML SYRINGE SC SCH (09:40)
[2019-08-30] MEDS: Aspirin 81 mg Enteric Coated Tablet PO SCH (09:41)
[2019-08-30] MEDS: Carvedilol 6.25 MG TAB PO SCH (09:41)
[2019-08-30] MEDS: Furosemide 40 MG/4 ML VIAL SLOW IVP SCH (09:41)
--- NOTE | 2019-08-30 09:46 | PDOC.HOSPP ---
- Subjective Encounter Date: 08/30/19 Subjective: The patient was seen and examined. Is tolerating his diet. No new complaints. - Objective Vital Signs & Weight: Vital Signs (12 hours) Temp Pulse Resp BP Pulse Ox 08/30/19 08:00 97.8 F 120 H 18 172/109 H 94 L 08/30/19 04:00 98.0 F 83 18 156/75 H 94 L 08/29/19 23:34 66 125/73 Weight Admit Weight 226 lb 14.4 oz Weight 225 lb 9 oz Most Recent Monitor Data Heart Rate from ECG 116 NIBP 137/112 NIBP BP-Mean 120 Respiration from ECG 3 SpO2 97 I&O: 08/29/19 08/30/19 08/31/19 06:59 06:59 06:59 Intake Total 4128.9 2931 Output Total 1284 4645 Balance 2844.9 -1714 Result Diagrams: 08/29/19 04:00 08/30/19 03:52 Additional Labs: Accuchecks 08/29/19 08/29/19 08/29/19 20:44 17:12 10:58 POC Glucose 113 H 119 H 124 H Hospitalist ROS - Medication Medications: Active Medications Generic Name Dose Route Start Last Admin Trade Name Freq PRN Reason Stop Dose Admin Furosemide 40 mg 08/29/19 09:00 08/29/19 10:14 Lasix SLOW IVP 40 mg DAILY KATHYA Administration Potassium Chloride 20 meq/ 1,010 mls @ 65 mls/hr 08/29/19 09:15 08/30/19 00: 47 Lactated Ringer's IV 1,010 mls .[id number] KATHYA Administration Metoprolol Tartrate 5 mg 08/24/19 17:00 08/30/19 05:18 Lopressor IVP 5 mg 0500,1100,1700,2300 KATHYA Administration Nitroglycerin 1 patch 08/26/19 09:00 08/29/19 08:18 Nitro-Dur 0.4mg/Hr Patch TD 1 patch DAILY KATHYA Administration Ondansetron HCl 4 mg 08/19/19 15:39 08/23/19 05:37 Zofran IVP 4 mg Q6H PRN Administration Nausea/Vomiting Pantoprazole Sodium 40 mg 08/28/19 09:00 08/29/19 08:18 Protonix IVP 40 mg DAILY KATHYA Administration Sodium Chloride 10 ml 06/02/20 15:39 08/27/19 08:55 Flush - Normal Saline IVF 10 ml PRN PRN Administration Saline Flush - Exam General Appearance: NAD, awake alert ENT: normocephalic atraumatic Neck: supple Heart - other findings: Tachycardia with irregularly irregular rhythm Respiratory: CTAB, normal chest expansion Gastrointestinal: soft, non-tender, normal bowel sounds Neurological: cranial nerve grossly intact Hosp A/P - Plan Hosp A/P (1) SBO (small bowel obstruction) Code(s): K56.609 - UNSP INTESTNL OBST, UNSP TO PARTIAL VERSUS COMPLETE OBST Status: Acute Plan: s/p laparotomy with REGINE POD #2, continue local wound care, NGT d/c'd and started clear liquids (2) Hypokalemia Code(s): E87.6 - HYPOKALEMIA Status: Acute Plan: Resolving, continue monitoring (3) Atrial fibrillation with RVR Code(s): I48.91 - UNSPECIFIED ATRIAL FIBRILLATION Status: Acute Plan: Rate-controlled, continue Coreg/Lovenox (4) Hypophosphatemia Code(s): E83.39 - OTHER DISORDERS OF PHOSPHORUS METABOLISM Status: Acute Plan: Resolving (5) Sepsis Code(s): A41.9 - SEPSIS, UNSPECIFIED ORGANISM Status: Acute Qualifiers: Sepsis type: sepsis due to unspecified organism Sepsis acute organ dysfunction status: without acute organ dysfunction Qualified Code(s): A41.9 - Sepsis, unspecified organism (6) Chronic anticoagulation Code(s): Z79.01 - FPC (CURRENT) USE OF ANTICOAGULANTS Status: Chronic Plan: Resume Xarelto when tolerating consistent po intake, continue Lovenox - Plan continue antibiotics, social media marketing manager, speech therapy, incentive spirometry, DVT proph w/SCDs 08/28: Stable currently Continue Meropenem IV Continue Coreg 12.5mg BID Continue Lovenox and will transition to Xarelto in next 24-48h CM for HH options including PT/OT, may consider inpt rehab CCU electrolyte protocol Clear liquids advancing to full in next 24h AM lab: CMP 08/29: The patient has been in A. fib with RVR since last night. Carvedilol increased to 25 mg orally twice daily with meals. Transitioning Lovenox to Xarelto tonight. His diet is advanced to full liquid diet. He is having bowel movements. Inpatient rehab assessment underway.
[2019-08-30] MEDS: Nitroglycerin 0.4mg/Hour PATCH TD SCH (09:47)
[2019-08-30] MEDS: Pantoprazole 40 MG VIAL IVP SCH (09:47)
[2019-08-30] MEDS ORDERED: Carvedilol 25 MG TAB PO SCH (10:30)
--- NOTE | 2019-08-30 10:59 | PRG ---
DATE OF SERVICE: 08/30/2019 SUBJECTIVE: The patient is feeling better. He denies pain. No nausea or vomiting. He is tolerating clear liquids. He had a bowel movement. OBJECTIVE: VITAL SIGNS: His temperature is 97.8, pulse 83, blood pressure 172/109. GENERAL: He is awake, alert, does not appear to be in any distress. LUNGS: Clear. ABDOMEN: Morbidly obese. He has a healing incision in the low midline. Mild erythema. No drainage. EXTREMITIES: Unremarkable. LABORATORY DATA: His white count is 10, H and H 12 and 37, platelet count 211. Electrolytes are fine. ASSESSMENT: Doing well. PLAN: Advance diet as tolerated. Slow down IV fluid. Job ID: [id number]
[2019-08-30] MEDS: Diltiazem 125 MG in Sodium Chloride 0.9% 100 ML IVPB SCH (11:28)
--- NOTE | 2019-08-30 12:06 | PRG ---
DATE OF SERVICE: 08/30/2019 SUBJECTIVE: Andrae Werner is afebrile. OBJECTIVE: VITAL SIGNS: Heart rate 83, respiratory rate is 18, oximetry is 94% on room air, and blood pressure 156/75. LUNGS: Clear anteriorly. HEART: Regular rhythm. ABDOMEN: Soft. IMPRESSION: Pleural effusion secondary to cardiomyopathy. PLAN: Continue supportive care. Job ID: [id number]
--- NOTE | 2019-08-30 12:14 | PDOC.CPN ---
- Subjective Date: 08/30/19 Time: 10:45 Interval history: Patient without complaints. No changes overnight. Sustained RVR since surgery. - Review of Systems General: denies: fever/chills, weight/appetite/sleep changes, night sweats, fatigue Respiratory: denies: cough, congestion, shortness of breath, exercise intolerance Cardiovascular: denies: chest pain, palpitation, edema, paroxysmal nocturnal dyspnea, orthopnea Gastrointestinal: denies: nausea, vomiting, diarrhea, constipation, abd pain, GI bleeding Musculoskeletal: denies: pain, tenderness, stiffness, swelling, arthritis/ arthralgias Neurological: denies: numbness, syncope, seizure, weakness - Objective Allergies/Adverse Reactions: Allergies Allergy/AdvReac Type Severity Reaction Status Date / Time No Known Drug Allergies Allergy Verified 08/19/19 17:15 Visit Medications: Current Medications Acetaminophen (Tylenol) 1,000 mg PO Q6H PRN PRN Reason: Moderate to Severe Pain (6-10) Aspirin (Ecotrin) 81 mg PO DAILY [facility] Last Admin: 08/30/19 09:41 Dose: 81 mg Carvedilol (Coreg) 25 mg PO BID-[facility] Carvedilol (Coreg) 12.5 mg PO NOW [facility] Stop: 08/30/19 12:30 Last Admin: 08/30/19 10:34 Dose: 12.5 mg Dextrose/Water (Dextrose 50%) 25 gm SLOW IVP PRN PRN PRN Reason: Hypoglycemia Furosemide (Lasix) 40 mg SLOW IVP DAILY [facility] Last Admin: 08/30/19 09:41 Dose: 40 mg Glucagon (Glucagon) 1 mg IM PRN PRN PRN Reason: Hypoglycemia Dextrose/Water (D5w) 1,000 mls @ 0 mls/hr IV .Q0M PRN PRN Reason: Hypoglycemia Potassium Chloride 20 meq/ (Lactated Ringer's) 1,010 mls @ 65 mls/hr IV .[id number] [facility] Last Admin: 08/30/19 00:47 Dose: 1,010 mls Diltiazem HCl 125 mg/ Sodium (Chloride) 125 mls @ 5 mls/hr IVPB INF [facility]; Protocol Last Admin: 08/30/19 11:28 Dose: 125 mls Ibuprofen (Motrin) 600 mg PO Q6H PRN PRN Reason: Pain Insulin Human Lispro (Humalog) 0 units SC .MODERATE SLIDING SC PRN PRN Reason: Moderate Correctional Scale Insulin Human Lispro (Humalog) 0 units SC .BEDTIME SLIDING SC PRN PRN Reason: Bedtime Correctional Scale Ketorolac Tromethamine (Toradol) 15 mg IVP Q6H PRN PRN Reason: Pain Stop: 09/01/19 17:45 Metoprolol Tartrate (Lopressor) 5 mg IVP 0500,1100,1700,2300 [facility] Last Admin: 08/30/19 10:35 Dose: 5 mg Nitroglycerin (Nitro-Dur 0.4mg/Hr Patch) 1 patch TD DAILY [facility] Last Admin: 08/30/19 09:47 Dose: 1 patch Ondansetron HCl (Zofran) 4 mg IVP Q6H PRN PRN Reason: Nausea/Vomiting Last Admin: 08/23/19 05:37 Dose: 4 mg Pantoprazole Sodium (Protonix) 40 mg IVP DAILY [facility] Last Admin: 08/30/19 09:47 Dose: 40 mg Rivaroxaban (Xarelto) 20 mg PO 1800 [facility] Sodium Chloride (Flush - Normal Saline) 10 ml IVF PRN PRN PRN Reason: Saline Flush Last Admin: 08/30/19 09:49 Dose: 10 ml Tramadol HCl (Ultram) 50 mg PO Q4H PRN PRN Reason: Pain Vital Signs & Weight: Vital Signs Temp Pulse Resp BP BP Pulse Ox 08/30/19 09:41 172/109 H 08/30/19 08:00 97.8 F 120 H 18 172/109 H 94 L 08/30/19 04:00 98.0 F 83 18 156/75 H 94 L Admit Weight 226 lb 14.4 oz Weight 225 lb 9 oz - Physical Exam General: appears well, no apparent distress HEENT: mucus membranes moist Neck: supple neck Cardiac: other (IRR) Lungs: clear to auscultation Abdomen: soft Extremities: no cyanosis, no clubbing Skin: clear Musculoskeletal: no pain - Labs Result Diagrams: 08/29/19 04:00 08/31/19 04:40 Troponin/CKMB CK-MB (CK-2) 2.4 ng/mL (0-6.6) 08/19/19 12:36 Troponin I 0.048 ng/mL (< 0.028) H 08/19/19 12:36 - Assessment/Plan Assessment/Plan: 1. AF with RVR 2. CAD 3. HTN Will add cardizem gtt. Continue bblocker. RG 08/30/2019 Pt seen and examined Agree with the above HR increased Agree with increaqsing meds for better rate control
[2019-08-30] MEDS ORDERED: Carvedilol 6.25 MG TAB PO SCH (17:00)
[2019-08-30] MEDS: Rivaroxaban 10 MG TAB PO SCH (17:01)
[2019-08-30] MEDS: Carvedilol 25 MG TAB PO SCH (17:01)
[2019-08-30] MEDS: Ondansetron PF 4 MG/2 ML Vial IVP PRN (22:22)
--- NOTE | 2019-08-30 22:59 | PDOC.EVN ---
Event Note - Event Note Event Note: Nurse reported 3.2 sec pause, patient been on metoprolol QID and added cardizem drip at 5mg/hr today. Asymptomatic. HR 80s-110s. SBP stable. Continue to monitor. Inform day rounder and cardiology. Discussed with Dr. Whaley.
[2019-08-31] MEDS: Diltiazem 125 MG in Sodium Chloride 0.9% 100 ML IVPB SCH (04:30)
[2019-08-31] MEDS: Metoprolol Tartrate 5 MG/5 ML VIAL IVP SCH (04:34)
[2019-08-31 05:27] LABS: ALT (SGPT) 15 U/L (8-55); AST (SGOT) 20 U/L (5-34); Albumin 2.9 g/dL (3.4-4.8); Alkaline Phosphatase 51 U/L (40-110); Anion Gap 11 mmol/L (10-20); BUN (Urea Nitrogen) 7 mg/dL (8.4-25.7); Bilirubin, Total 0.9 mg/dL (0.2-1.2); Calc. Creatinine Clearance 136 mL/min (70-130); Calcium 7.9 mg/dL (7.8-10.44); Carbon Dioxide 31 mmol/L (23-31); Chloride 99 mmol/L (98-107); Estimated GFR-MDRD Greater than 90; Globulin 2.9 g/dL (2.4-3.5); Glucose 143 mg/dL (83-110); Potassium 3.9 mmol/L (3.5-5.1); Protein, Total 5.8 g/dL (5.8-8.1); Sodium 137 mmol/L (136-145)
[2019-08-31] MEDS: Furosemide 40 MG/4 ML VIAL SLOW IVP SCH (07:54)
[2019-08-31] MEDS: Aspirin 81 mg Enteric Coated Tablet PO SCH (07:54)
[2019-08-31] MEDS: Carvedilol 25 MG TAB PO SCH ×2 (07:55→16:55)
[2019-08-31] MEDS: Pantoprazole 40 MG VIAL IVP SCH (07:56)
[2019-08-31] MEDS: Nitroglycerin 0.4mg/Hour PATCH TD SCH (08:00)
[2019-08-31] MEDS: Potassium Chloride 20 MEQ in Lactated Ringer's 1,000 ML IV SCH ×2 (08:00→21:46)
[2019-08-31] MEDS ORDERED: Diltiazem HCl SR 60 mg Capsule PO SCH (09:45)
--- NOTE | 2019-08-31 10:01 | PDOC.CPN ---
- Subjective Date: 08/31/19 Time: 09:59 Interval history: Patient reports vomiting last night. Cannot tell me time. Otherwise no issues. Rate improved on cardizem. 3.2 second pause last night. unsure if patient vomiting at that time. - Review of Systems General: denies: fever/chills, weight/appetite/sleep changes, night sweats, fatigue Cardiovascular: denies: chest pain, palpitation, edema, paroxysmal nocturnal dyspnea, orthopnea Gastrointestinal: reports: vomiting Musculoskeletal: denies: pain, tenderness, stiffness, swelling, arthritis/ arthralgias Neurological: denies: numbness, syncope, seizure, weakness - Objective Allergies/Adverse Reactions: Allergies Allergy/AdvReac Type Severity Reaction Status Date / Time No Known Drug Allergies Allergy Verified 08/19/19 17:15 Visit Medications: Current Medications Acetaminophen (Tylenol) 1,000 mg PO Q6H PRN PRN Reason: Moderate to Severe Pain (6-10) Aspirin (Ecotrin) 81 mg PO DAILY [facility] Last Admin: 08/31/19 07:54 Dose: 81 mg Carvedilol (Coreg) 25 mg PO BID-[facility] Last Admin: 08/31/19 07:55 Dose: 25 mg Dextrose/Water (Dextrose 50%) 25 gm SLOW IVP PRN PRN PRN Reason: Hypoglycemia Diltiazem HCl (Cardizem Sr) 60 mg PO TID [facility] Diltiazem HCl (Cardizem Sr) 60 mg PO NOW [facility] Stop: 08/31/19 11:45 Furosemide (Lasix) 40 mg SLOW IVP DAILY [facility] Last Admin: 08/31/19 07:54 Dose: 40 mg Glucagon (Glucagon) 1 mg IM PRN PRN PRN Reason: Hypoglycemia Dextrose/Water (D5w) 1,000 mls @ 0 mls/hr IV .Q0M PRN PRN Reason: Hypoglycemia Potassium Chloride 20 meq/ (Lactated Ringer's) 1,010 mls @ 65 mls/hr IV .[id number] [facility] Last Admin: 08/31/19 08:00 Dose: 1,010 mls Diltiazem HCl 125 mg/ Sodium (Chloride) 125 mls @ 5 mls/hr IVPB INF [facility]; Protocol Last Admin: 08/31/19 04:30 Dose: 125 mls Ibuprofen (Motrin) 600 mg PO Q6H PRN PRN Reason: Pain Insulin Human Lispro (Humalog) 0 units SC .MODERATE SLIDING SC PRN PRN Reason: Moderate Correctional Scale Insulin Human Lispro (Humalog) 0 units SC .BEDTIME SLIDING SC PRN PRN Reason: Bedtime Correctional Scale Ketorolac Tromethamine (Toradol) 15 mg IVP Q6H PRN PRN Reason: Pain Stop: 09/01/19 17:45 Nitroglycerin (Nitro-Dur 0.4mg/Hr Patch) 1 patch TD DAILY [facility] Last Admin: 08/31/19 08:00 Dose: 1 patch Ondansetron HCl (Zofran) 4 mg IVP Q6H PRN PRN Reason: Nausea/Vomiting Last Admin: 08/30/19 22:22 Dose: 4 mg Pantoprazole Sodium (Protonix) 40 mg IVP DAILY [facility] Last Admin: 08/31/19 07:56 Dose: 40 mg Rivaroxaban (Xarelto) 20 mg PO 1800 [facility] Last Admin: 08/30/19 17:01 Dose: 20 mg Sodium Chloride (Flush - Normal Saline) 10 ml IVF PRN PRN PRN Reason: Saline Flush Last Admin: 08/30/19 09:49 Dose: 10 ml Tramadol HCl (Ultram) 50 mg PO Q4H PRN PRN Reason: Pain Vital Signs & Weight: Vital Signs Temp Pulse Resp BP Pulse Ox 08/31/19 07:37 98.1 F 68 15 149/95 H 93 L 08/31/19 04:00 97.9 F 79 20 149/90 H 93 L Admit Weight 226 lb 14.4 oz Weight 237 lb 1.6 oz - Physical Exam General: alert & oriented x3, appears well HEENT: mucus membranes moist Neck: supple neck Cardiac: other (IRR IRR) Lungs: clear to auscultation Neuro: grossly intact Abdomen: soft Extremities: 1+ LE edema Skin: clear Musculoskeletal: no pain - Labs Result Diagrams: 08/29/19 04:00 08/31/19 04:40 Troponin/CKMB CK-MB (CK-2) 2.4 ng/mL (0-6.6) 08/19/19 12:36 Troponin I 0.048 ng/mL (< 0.028) H 08/19/19 12:36 - Assessment/Plan Assessment/Plan: 1. AF with RVR 2. CAD 3. HTN Stop IV Lopressor. Continue cardizem gtt at 5 for now. Titrate down. Add po CCB today.
--- NOTE | 2019-08-31 12:34 | PRG ---
DATE OF SERVICE: 08/31/2019 SUBJECTIVE: The patient is status post laparotomy for small-bowel obstruction, done by Dr. Castellon on the . Last night, he had an episode of vomiting evidently, but he says he feels better now and he is passing gas. OBJECTIVE: VITAL SIGNS: His temperature is 97.8, pulse 80, and blood pressure 136/83. GENERAL: He is awake and alert, does not appear to be in any distress. ABDOMEN: Morbidly obese. He has a healing incision in the low midline. His abdomen is a little bit distended, but not tender. LABORATORY DATA: His blood sugar is 139. Electrolytes are okay. Creatinine 0.6. ASSESSMENT: Episode of vomiting of unclear etiology. PLAN: We will discontinue clear liquids, advance as feels better. Job ID: [id number]
--- NOTE | 2019-08-31 13:29 | PDOC.HOSPP ---
- Subjective Encounter Date: 08/31/19 Subjective: Tolerating his diet. Denies CP, SOB, or palpitaions. 2.3 second pause was reported last night. - Objective Vital Signs & Weight: Vital Signs (12 hours) Temp Pulse Resp BP Pulse Ox 08/31/19 12:08 97.9 F 80 15 136/83 93 L 08/31/19 07:37 98.1 F 68 15 149/95 H 93 L 08/31/19 04:00 97.9 F 79 20 149/90 H 93 L Weight Admit Weight 226 lb 14.4 oz Weight 237 lb 1.6 oz Most Recent Monitor Data Heart Rate from ECG 116 NIBP 137/112 NIBP BP-Mean 120 Respiration from ECG 3 SpO2 97 I&O: 08/30/19 08/31/19 09/01/19 06:59 06:59 06:59 Intake Total 2931 6316 Output Total 3115 3074 Balance -4681 -284 Result Diagrams: 08/29/19 04:00 08/31/19 04:40 Additional Labs: Accuchecks 08/31/19 08/31/19 08/30/19 10:57 05:47 20:17 POC Glucose 139 H 134 H 128 H 08/30/19 08/30/19 16:54 05:51 POC Glucose 138 H 107 Hospitalist ROS - Medication Medications: Active Medications Generic Name Dose Route Start Last Admin Trade Name Freq PRN Reason Stop Dose Admin Aspirin 81 mg 08/30/19 09:00 08/31/19 07:54 Ecotrin PO 81 mg DAILY KATHYA Administration Carvedilol 25 mg 08/30/19 17:00 08/31/19 07:55 Coreg PO 25 mg BID-WM KATHYA Administration Furosemide 40 mg 08/29/19 09:00 08/31/19 07:54 Lasix SLOW IVP 40 mg DAILY KATHYA Administration Potassium Chloride 20 meq/ 1,010 mls @ 65 mls/hr 08/29/19 09:15 08/31/19 08: 00 Lactated Ringer's IV 1,010 mls .[id number] KATHYA Administration Diltiazem HCl 125 mg/ Sodium 125 mls @ 5 mls/hr 08/30/19 10:45 08/31/19 04:30 Chloride IVPB 125 mls INF KATHYA Administration Protocol 5 MG/HR Nitroglycerin 1 patch 08/26/19 09:00 08/31/19 08:00 Nitro-Dur 0.4mg/Hr Patch TD 1 patch DAILY KATHYA Administration Ondansetron HCl 4 mg 08/19/19 15:39 08/30/19 22:22 Zofran IVP 4 mg Q6H PRN Administration Nausea/Vomiting Pantoprazole Sodium 40 mg 08/28/19 09:00 08/31/19 07:56 Protonix IVP 40 mg DAILY KATHYA Administration Rivaroxaban 20 mg 08/30/19 18:00 08/30/19 17:01 Xarelto PO 20 mg 1800 KATHYA Administration Sodium Chloride 10 ml 08/19/19 15:39 08/30/19 09:49 Flush - Normal Saline IVF 10 ml PRN PRN Administration Saline Flush - Exam General Appearance: awake alert ENT: normocephalic atraumatic Neck: supple Heart: no murmur, no gallops, no rubs, normal peripheral pulses Heart - other findings: irrigularly irrigular rythm. Respiratory: CTAB Gastrointestinal: soft, non-tender, non-distended, normal bowel sounds Neurological: cranial nerve grossly intact, no new deficit Hosp A/P - Plan Hosp A/P (1) SBO (small bowel obstruction) Code(s): K56.609 - UNSP INTESTNL OBST, UNSP TO PARTIAL VERSUS COMPLETE OBST Status: Acute Plan: s/p laparotomy with REGINE POD #2, continue local wound care, NGT d/c'd and started clear liquids (2) Hypokalemia Code(s): E87.6 - HYPOKALEMIA Status: Acute Plan: Resolving, continue monitoring (3) Atrial fibrillation with RVR Code(s): I48.91 - UNSPECIFIED ATRIAL FIBRILLATION Status: Acute Plan: Rate-controlled, continue Coreg/Lovenox (4) Hypophosphatemia Code(s): E83.39 - OTHER DISORDERS OF PHOSPHORUS METABOLISM Status: Acute Plan: Resolving (5) Sepsis Code(s): A41.9 - SEPSIS, UNSPECIFIED ORGANISM Status: Acute Qualifiers: Sepsis type: sepsis due to unspecified organism Sepsis acute organ dysfunction status: without acute organ dysfunction Qualified Code(s): A41.9 - Sepsis, unspecified organism (6) Chronic anticoagulation Code(s): Z79.01 - [employer] (CURRENT) USE OF ANTICOAGULANTS Status: Chronic Plan: Resume Xarelto when tolerating consistent po intake, continue Lovenox - Plan continue antibiotics, psychiatric social worker, speech therapy, incentive spirometry, DVT proph w/SCDs 08/28: Stable currently Continue Meropenem IV Continue Coreg 12.5mg BID Continue Lovenox and will transition to Xarelto in next 24-48h CM for HH options including PT/OT, may consider inpt rehab CCU electrolyte protocol Clear liquids advancing to full in next 24h AM lab: CMP 08/29: The patient has been in A. fib with RVR since last night. Carvedilol increased to 25 mg orally twice daily with meals. Transitioning Lovenox to Xarelto tonight. His diet is advanced to full liquid diet. He is having bowel movements. Inpatient rehab assessment underway. 08/30: The patient had 2.3-second pause yesterday. His blood pressure remained stable. Currently rate controlled on diltiazem drip at 5 mg/h. Continue management per cardiology. Transfer to rehab once he is stable off diltiazem
--- NOTE | 2019-08-31 15:17 | PRG ---
DATE OF SERVICE: 08/31/2019 SUBJECTIVE: Mr. Werner has no complaints. OBJECTIVE: VITAL SIGNS: He is afebrile, heart rate is 80, respiratory rate is 15, oximetry is 93 on room air, and blood pressure 136/83. LUNGS: Clear. HEART: Regular rhythm. ABDOMEN: Soft. His incision looks good. LABORATORY DATA: White count has not been repeated since the 12. Sodium 137, potassium 3.9, chloride 99, bicarb 31, BUN 7, and creatinine 0.68. IMPRESSION: Status post laparotomy for bowel obstruction. PLAN: Continue supportive care. Job ID: [id number]
[2019-08-31] MEDS: Diltiazem HCl SR 60 mg Capsule PO SCH ×2 (15:56→20:23)
[2019-08-31] MEDS: Rivaroxaban 10 MG TAB PO SCH (16:55)
[2019-09-01 08:03] LABS: Hemoglobin 13.6 g/dL (14.0-18.0); Mean Corpuscular Hemoglobin 30.6 pg (27.0-31.0); Mean Platelet Volume 8.3 fL (7.4-10.4); Platelet Count 307 thou/uL (130-400); RBC Distribution Width 12.4 % (11.5-14.5); Red Blood Cell (RBC) Count 4.44 mill/uL (4.70-6.10); White Blood Cell (WBC) Count 8.3 thou/uL (4.8-10.8)
[2019-09-01 08:17] LABS: ALT (SGPT) 17 U/L (8-55); AST (SGOT) 19 U/L (5-34); Albumin 2.8 g/dL (3.4-4.8); Alkaline Phosphatase 46 U/L (40-110); Anion Gap 13 mmol/L (10-20); BUN (Urea Nitrogen) 14 mg/dL (8.4-25.7); Bilirubin, Total 0.7 mg/dL (0.2-1.2); Calc. Creatinine Clearance 133 mL/min (70-130); Calcium 7.8 mg/dL (7.8-10.44); Carbon Dioxide 27 mmol/L (23-31); Chloride 99 mmol/L (98-107); Estimated GFR-MDRD Greater than 90; Globulin 2.8 g/dL (2.4-3.5); Glucose 141 mg/dL (83-110); Potassium 4.1 mmol/L (3.5-5.1); Protein, Total 5.6 g/dL (5.8-8.1); Sodium 135 mmol/L (136-145)
[2019-09-01] MEDS: Furosemide 40 MG/4 ML VIAL SLOW IVP SCH (08:43)
[2019-09-01] MEDS: Aspirin 81 mg Enteric Coated Tablet PO SCH (08:43)
[2019-09-01] MEDS: Carvedilol 25 MG TAB PO SCH ×2 (08:43→17:50)
[2019-09-01] MEDS: Pantoprazole 40 MG VIAL IVP SCH (08:43)
[2019-09-01] MEDS: Diltiazem HCl SR 60 mg Capsule PO SCH ×3 (08:43→19:30)
[2019-09-01] MEDS: Nitroglycerin 0.4mg/Hour PATCH TD SCH (08:44)
[2019-09-01 09:44] LABS: Band 2 % (5-11); Eosinophils 3 % (0-10); Lymphocytes 20 % (21-51); MDiff Complete? YES; Monocytes 8 % (0-10); Neutrophil 66 % (42-75); Platelet Morphology Comment Appears Adequate; RBC Morphology Normal; Reactive Lymphocytes 1 % (0-10)
--- NOTE | 2019-09-01 10:16 | PRG ---
DATE OF SERVICE: 09/01/2019 SUBJECTIVE: Andrae Werner is afebrile. OBJECTIVE: VITAL SIGNS: Heart rate is , respiratory rate is , oximetry is 95% on room air, blood pressure is 145/75. LUNGS: Clear. HEART: Regular rhythm. ABDOMEN: Soft. He had no nausea or vomiting last night. LABORATORY DATA: White count 8.3, hemoglobin 13.6, platelets 307. Electrolytes are normal. Creatinine is 0.74, albumin is 2.8. IMPRESSION: 1. Status post lap for bowel obstruction. 2. Weakness, deconditioning, and obesity. Overall, he appears to be stable. I met with the and answered all of her questions. Job ID: [id number]
--- NOTE | 2019-09-01 13:42 | RAD ---
ABDOMEN 1 VIEW: HISTORY: Postop abdominal distention. FINDINGS: The small bowel loops are air-filled and dilated. There is contrast in the colon. There are degener ative changes in the spine. IMPRESSION: Ileus versus small bowel obstruction. Clinical correlation is recommended. POS: CY
--- NOTE | 2019-09-01 14:24 | PRG ---
DATE OF SERVICE: 09/01/2019 SUBJECTIVE: Andrae Werner is doing well today. He has been moved to telemetry. He is status post laparoscopy converted to infraumbilical midline laparotomy for adhesiolysis on 08/27/2019. NG tube has been removed. He had some emesis 2 days ago, but none since. He has been having bowel movements. His is in the room with him. OBJECTIVE: LUNGS: Clear to auscultation. CARDIAC: Regular rate and rhythm without murmur or gallop. ABDOMEN: Soft, distended, tympanitic, nontender. Midline infraumbilical wound well healed. Bowel movements present. EXTREMITIES: Mild edema. DISCUSSION: I had a discussion with the patient's before regarding his code status. I discussed this with him again today. The patient intubation, but he is still discussing with his whether he wants defibrillation or CPR. and the patient are in agreement with this. ASSESSMENT AND PLAN: Gastrointestinal function is returning after a bowel obstruction, mechanical. Urine output is good. He is tolerating full liquids. I would recommend observation another day or 2 to assure bowel function is good. We will obtain abdominal x-ray, suspecting the most gas is in his colon, but we will check the x-ray. Would not plan to transfer to rehab today and will await until he is reassessed tomorrow. Job ID: [id number]
[2019-09-01] MEDS: Lactated Ringer's 1,000 ML IV SCH (15:06)
[2019-09-01] MEDS: Rivaroxaban 10 MG TAB PO SCH (17:50)
--- NOTE | 2019-09-01 18:55 | PDOC.HOSPP ---
- Subjective Encounter Date: 09/01/19 Subjective: Complains of abdominal distension - Objective Vital Signs & Weight: Vital Signs (12 hours) Temp Pulse Pulse Pulse Resp BP BP 09/01/19 15:14 97.3 F L 81 18 09/01/19 12:12 80 78 146/79 H 129/80 09/01/19 11:18 97.5 F L 79 16 09/01/19 07:55 97.9 F 80 18 BP Pulse Ox 09/01/19 15:14 140/92 H 95 09/01/19 12:12 09/01/19 11:18 140/70 92 L 09/01/19 07:55 145/75 H 95 Weight Admit Weight 226 lb 14.4 oz Weight 240 lb Most Recent Monitor Data Heart Rate from ECG 116 NIBP 137/112 NIBP BP-Mean 120 Respiration from ECG 3 SpO2 97 I&O: 08/31/19 09/01/19 09/02/19 06:59 06:59 06:59 Intake Total 2176 1875 700 Output Total 3125 1100 600 Balance -949 775 100 Result Diagrams: 09/01/19 07:53 09/01/19 07:53 Additional Labs: Accuchecks 09/01/19 09/01/19 09/01/19 16:41 10:47 05:48 POC Glucose 146 H 143 H 134 H 08/31/19 23:17 POC Glucose 128 H Hospitalist ROS - Medication Medications: Active Medications Generic Name Dose Route Start Last Admin Trade Name Freq PRN Reason Stop Dose Admin Aspirin 81 mg 08/30/19 09:00 09/01/19 08:43 Ecotrin PO 81 mg DAILY KATHYA Administration Carvedilol 25 mg 08/30/19 17:00 09/01/19 17:50 Coreg PO 25 mg BID-WM KATHYA Administration Diltiazem HCl 60 mg 08/31/19 15:00 09/01/19 15:07 Cardizem Sr PO 60 mg TID KATHYA Administration Furosemide 40 mg 08/29/19 09:00 09/01/19 08:43 Lasix SLOW IVP 40 mg DAILY KATHYA Administration Lactated Ringer's 1,000 mls @ 50 mls/hr 09/01/19 14:00 09/01/19 15:06 Lactated Ringer's IV 1,000 mls .Q20H KATHYA Administration Nitroglycerin 1 patch 08/26/19 09:00 09/01/19 08:44 Nitro-Dur 0.4mg/Hr Patch TD 1 patch DAILY KATHYA Administration Ondansetron HCl 4 mg 08/19/19 15:39 08/30/19 22:22 Zofran IVP 4 mg Q6H PRN Administration Nausea/Vomiting Pantoprazole Sodium 40 mg 08/28/19 09:00 09/01/19 08:43 Protonix IVP 40 mg DAILY KATHYA Administration Rivaroxaban 20 mg 08/30/19 18:00 09/01/19 17:50 Xarelto PO 20 mg 1800 KATHYA Administration Sodium Chloride 10 ml 08/19/19 15:39 08/30/19 09:49 Flush - Normal Saline IVF 10 ml PRN PRN Administration Saline Flush - Exam General Appearance: awake alert ENT: normocephalic atraumatic Neck: supple, no JVD Heart: RRR Respiratory: CTAB, no wheezes Gastrointestinal: soft, distended Hosp A/P - Plan Hosp A/P (1) SBO (small bowel obstruction) Code(s): K56.609 - UNSP INTESTNL OBST, UNSP TO PARTIAL VERSUS COMPLETE OBST Status: Acute Plan: s/p laparotomy with REGINE POD #2, continue local wound care, NGT d/c'd and started clear liquids (2) Hypokalemia Code(s): E87.6 - HYPOKALEMIA Status: Acute Plan: Resolving, continue monitoring (3) Atrial fibrillation with RVR Code(s): I48.91 - UNSPECIFIED ATRIAL FIBRILLATION Status: Acute Plan: Rate-controlled, continue Coreg/Lovenox (4) Hypophosphatemia Code(s): E83.39 - OTHER DISORDERS OF PHOSPHORUS METABOLISM Status: Acute Plan: Resolving (5) Sepsis Code(s): A41.9 - SEPSIS, UNSPECIFIED ORGANISM Status: Acute Qualifiers: Sepsis type: sepsis due to unspecified organism Sepsis acute organ dysfunction status: without acute organ dysfunction Qualified Code(s): A41.9 - Sepsis, unspecified organism (6) Chronic anticoagulation Code(s): Z79.01 - [employer] (CURRENT) USE OF ANTICOAGULANTS Status: Chronic Plan: Resume Xarelto when tolerating consistent po intake, continue Lovenox - Plan continue antibiotics, psychologist social, speech therapy, incentive spirometry, DVT proph w/SCDs 08/28: Stable currently Continue Meropenem IV Continue Coreg 12.5mg BID Continue Lovenox and will transition to Xarelto in next 24-48h CM for HH options including PT/OT, may consider inpt rehab CCU electrolyte protocol Clear liquids advancing to full in next 24h AM lab: CMP 08/29: The patient has been in A. fib with RVR since last night. Carvedilol increased to 25 mg orally twice daily with meals. Transitioning Lovenox to Xarelto tonight. His diet is advanced to full liquid diet. He is having bowel movements. Inpatient rehab assessment underway. 08/30: The patient had 2.3-second pause yesterday. His blood pressure remained stable. Currently rate controlled on diltiazem drip at 5 mg/h. Continue management per cardiology. Transfer to rehab once he is stable off diltiazem 08/31: The patient atrial fibrillation is now controlled on oral diltiazem. The patient did not have any bowel movements today or yesterday. His abdomen is distended and x-ray showing ileus versus bowel obstruction pattern. We will keep patient n.p.o. except for medications. Mobilization with PT and OT. Follow the patient's response and repeat x-ray in the morning as needed. Appreciate recommendations by surgery team.
[2019-09-02 04:43] LABS: Anion Gap 14 mmol/L (10-20); BUN (Urea Nitrogen) 17 mg/dL (8.4-25.7); Calc. Creatinine Clearance 97 mL/min (70-130); Calcium 7.8 mg/dL (7.8-10.44); Carbon Dioxide 30 mmol/L (23-31); Chloride 98 mmol/L (98-107); Estimated GFR-MDRD 72; Glucose 146 mg/dL (83-110); Potassium 3.6 mmol/L (3.5-5.1); Sodium 138 mmol/L (136-145)
[2019-09-02] MEDS: Diltiazem HCl SR 60 mg Capsule PO SCH ×3 (08:52→21:27)
[2019-09-02] MEDS: Carvedilol 25 MG TAB PO SCH ×2 (08:52→16:26)
[2019-09-02] MEDS: Nitroglycerin 0.4mg/Hour PATCH TD SCH (08:52)
[2019-09-02] MEDS: Aspirin 81 mg Enteric Coated Tablet PO SCH (08:52)
[2019-09-02] MEDS: Pantoprazole 40 MG VIAL IVP SCH (08:52)
[2019-09-02] MEDS: Furosemide 40 MG/4 ML VIAL SLOW IVP SCH (08:52)
[2019-09-02] MEDS: Lactated Ringer's 1,000 ML IV SCH ×2 (09:02→23:33)
--- NOTE | 2019-09-02 13:48 | PRG ---
DATE OF SERVICE: 09/02/2019 SUBJECTIVE: Andrae Werner is doing well today. He has not had any vomiting. Bowel movements have not been reported. Abdominal x-rays reveal small bowel distention. Contrast the colon pattern suggestive of ileus. He has tolerated his medications with a sip of water. Otherwise, is n.p.o. OBJECTIVE: VITAL SIGNS: Temperature 97.8 degrees, pulse 76, and blood pressure 135/80. HEAD, EARS, EYES, NOSE, AND THROAT: Unremarkable. LUNGS: Clear to auscultation. CARDIAC: Regular rate and rhythm without murmur or gallop. ABDOMEN: Soft, distended, and nontender. Surgical wound well healed. Minimal bowel sounds. EXTREMITIES: Mild edema of ankles. LABORATORY DATA: Renal function is normal. Accu-Cheks 125 to 140. ASSESSMENT AND PLAN: Ileus. Continue n.p.o. except for medications. Await GI function. Initiate TPN today. Await bowel function. Continue PT for reconditioning. The patient is not ready for transfer to rehab at this time. Job ID: [id number]
[2019-09-02 15:50] LABS: Actual Bicarbonate (HCO3a) 28.6 mEq/L (22-28); Base Excess (BEa) 4.7 mEq/L (-2.0 to +3.0); CO2 Tension 39.8 mmHg (35.0-45.0); Calcium, Ionized (arterial) 1.07 mmol/L (1.12-1.30); Carboxyhemoglobin (COHb) 1.3 gm% (0.0-3.0); Hemoglobin (Hb) 12.8 g/dL (14.0-18.0); O2 Tension (PaO2), arterial 61.9 mmHg (> 70.0); Potassium - ABG Lab 3.45 mmol/L (3.70-5.30); pH, Arterial 7.47 (7.35-7.45)
[2019-09-02 16:29] LABS: Puncture Site RB
[2019-09-02] MEDS: Rivaroxaban 10 MG TAB PO SCH (16:39)
--- NOTE | 2019-09-02 20:20 | PDOC.HOSPP ---
- Subjective Encounter Date: 09/02/19 Subjective: The patient complains of abdominal distention. No bowel movements yet. He has been more lethargic today. His stated that he uses CPAP at home - Objective Vital Signs & Weight: Vital Signs (12 hours) Temp Pulse Pulse Pulse Resp BP BP 09/02/19 17:00 97.5 F L 58 L 16 09/02/19 15:10 97.6 F 62 14 09/02/19 11:24 83 70 126/69 166/78 H 09/02/19 11:00 97.8 F 76 16 BP Pulse Ox 09/02/19 17:00 125/75 93 L 09/02/19 15:10 145/71 H 94 L 09/02/19 11:24 09/02/19 11:00 135/80 94 L Weight Admit Weight 226 lb 14.4 oz Weight 235 lb 11.2 oz Most Recent Monitor Data Heart Rate from ECG 116 NIBP 137/112 NIBP BP-Mean 120 Respiration from ECG 3 SpO2 97 I&O: 09/01/19 09/02/19 09/03/19 06:59 06:59 06:59 Intake Total 1875 1200 100 Output Total 1100 700 250 Balance 775 500 -150 Result Diagrams: 09/01/19 07:53 09/02/19 04:11 Additional Labs: Accuchecks 09/02/19 09/02/19 09/02/19 17:35 10:47 05:50 POC Glucose 140 H 135 H 125 H 09/01/19 20:43 POC Glucose 140 H Hospitalist ROS - Medication Medications: Active Medications Generic Name Dose Route Start Last Admin Trade Name Lobo PRN Reason Stop Dose Admin Aspirin 81 mg 08/30/19 09:00 09/02/19 08:52 Ecotrin PO 81 mg DAILY KATHYA Administration Carvedilol 25 mg 08/30/19 17:00 09/02/19 16:26 Coreg PO 25 mg BID-WM KATHYA Administration Diltiazem HCl 60 mg 08/31/19 15:00 09/02/19 16:26 Cardizem Sr PO 60 mg TID KATHYA Administration Furosemide 40 mg 08/29/19 09:00 09/02/19 08:52 Lasix SLOW IVP 40 mg DAILY KATHYA Administration Lactated Ringer's 1,000 mls @ 50 mls/hr 09/01/19 14:00 09/02/19 09:02 Lactated Ringer's IV 1,000 mls .Q20H KATHYA Administration Nitroglycerin 1 patch 08/26/19 09:00 09/02/19 08:52 Nitro-Dur 0.4mg/Hr Patch TD 1 patch DAILY KATHYA Administration Ondansetron HCl 4 mg 08/19/19 15:39 08/30/19 22:22 Zofran IVP 4 mg Q6H PRN Administration Nausea/Vomiting Pantoprazole Sodium 40 mg 08/28/19 09:00 09/02/19 08:52 Protonix IVP 40 mg DAILY KATHYA Administration Rivaroxaban 20 mg 08/30/19 18:00 09/02/19 16:39 Xarelto PO 20 mg 1800 KATHYA Administration Sodium Chloride 10 ml 08/19/19 15:39 08/30/19 09:49 Flush - Normal Saline IVF 10 ml PRN PRN Administration Saline Flush - Exam General Appearance: NAD, awake alert ENT: normocephalic atraumatic Neck: supple Heart: no murmur, no gallops, irregular Respiratory: CTAB, no wheezes, no rales, no ronchi Gastrointestinal: soft, distended, diminished bowl sounds Hosp A/P - Plan Hosp A/P (1) SBO (small bowel obstruction) Code(s): K56.609 - UNSP INTESTNL OBST, UNSP TO PARTIAL VERSUS COMPLETE OBST Status: Acute Plan: s/p laparotomy with REGINE POD #2, continue local wound care, NGT d/c'd and started clear liquids (2) Hypokalemia Code(s): E87.6 - HYPOKALEMIA Status: Acute Plan: Resolving, continue monitoring (3) Atrial fibrillation with RVR Code(s): I48.91 - UNSPECIFIED ATRIAL FIBRILLATION Status: Acute Plan: Rate-controlled, continue Coreg/Lovenox (4) Hypophosphatemia Code(s): E83.39 - OTHER DISORDERS OF PHOSPHORUS METABOLISM Status: Acute Plan: Resolving (5) Sepsis Code(s): A41.9 - SEPSIS, UNSPECIFIED ORGANISM Status: Acute Qualifiers: Sepsis type: sepsis due to unspecified organism Sepsis acute organ dysfunction status: without acute organ dysfunction Qualified Code(s): A41.9 - Sepsis, unspecified organism (6) Chronic anticoagulation Code(s): Z79.01 - [facility] (CURRENT) USE OF ANTICOAGULANTS Status: Chronic Plan: Resume Xarelto when tolerating consistent po intake, continue Lovenox - Plan continue antibiotics, addiction social worker, speech therapy, incentive spirometry, DVT proph w/SCDs 08/28: Stable currently Continue Meropenem IV Continue Coreg 12.5mg BID Continue Lovenox and will transition to Xarelto in next 24-48h CM for HH options including PT/OT, may consider inpt rehab CCU electrolyte protocol Clear liquids advancing to full in next 24h AM lab: CMP 08/29: The patient has been in A. fib with RVR since last night. Carvedilol increased to 25 mg orally twice daily with meals. Transitioning Lovenox to Xarelto tonight. His diet is advanced to full liquid diet. He is having bowel movements. Inpatient rehab assessment underway. 08/30: The patient had 2.3-second pause yesterday. His blood pressure remained stable. Currently rate controlled on diltiazem drip at 5 mg/h. Continue management per cardiology. Transfer to rehab once he is stable off diltiazem 08/31: The patient atrial fibrillation is now controlled on oral diltiazem. The patient did not have any bowel movements today or yesterday. His abdomen is distended and x-ray showing ileus versus bowel obstruction pattern. We will keep patient n.p.o. except for medications. Mobilization with PT and OT. Follow the patient's response and repeat x-ray in the morning as needed. Appreciate recommendations by surgery team. 09/01: Postoperative ileus. Bowel obstruction is unlikely given the presence of contrast in the colon. Continue bowel rest and supportive measures. His atrial fibrillation is rate controlled. CPAP for sleep apnea has been ordered for tonight.
[2019-09-02] MEDS: POTASSIUM CHLORIDE IV SCH (23:32)
[2019-09-02] MEDS: SODIUM ACETATE IV SCH (23:32)
[2019-09-02] MEDS: SODIUM CHLORIDE IV SCH (23:32)
[2019-09-02] MEDS: [UNRECOGNIZED DRUG - OTHER] IV SCH (23:32)
[2019-09-03] MEDS: HumaLOG 300 UNITS/3 ML VIAL SC PRN ×3 (06:41→18:16)
[2019-09-03 06:49] LABS: Hemoglobin 12.4 g/dL (14.0-18.0); Mean Corpuscular HGB CONC 33.8 g/dL (32.0-36.0); Mean Corpuscular Hemoglobin 31.1 pg (27.0-31.0); Mean Corpuscular Volume 92.1 fL (78.0-98.0); Mean Platelet Volume 8.4 fL (7.4-10.4); Platelet Count 249 thou/uL (130-400); RBC Distribution Width 12.4 % (11.5-14.5); Red Blood Cell (RBC) Count 3.97 mill/uL (4.70-6.10); White Blood Cell (WBC) Count 7.7 thou/uL (4.8-10.8)
[2019-09-03 07:28] LABS: Anion Gap 12 mmol/L (10-20); BUN (Urea Nitrogen) 20 mg/dL (8.4-25.7); Calc. Creatinine Clearance 0 mL/min (70-130); Calcium 7.5 mg/dL (7.8-10.44); Carbon Dioxide 28 mmol/L (23-31); Chloride 99 mmol/L (98-107); Estimated GFR-MDRD 54; Glucose 250 mg/dL (83-110); Sodium 135 mmol/L (136-145)
[2019-09-03 08:50] LABS: Band 12 % (5-11); Eosinophils 3 % (0-10); Lymphocytes 17 % (21-51); MDiff Complete? YES; Monocytes 18 % (0-10); Neutrophil 50 % (42-75); Platelet Morphology Comment Appears Adequate; Polychromasia SLIGHT = 2-3 cells (100X) (0-2/hpf)
[2019-09-03] MEDS: Diltiazem HCl SR 60 mg Capsule PO SCH ×2 (09:32→13:59)
[2019-09-03] MEDS: Carvedilol 25 MG TAB PO SCH ×2 (09:32→17:46)
[2019-09-03] MEDS: Nitroglycerin 0.4mg/Hour PATCH TD SCH (10:32)
[2019-09-03] MEDS: Aspirin 81 mg Enteric Coated Tablet PO SCH (10:32)
[2019-09-03] MEDS: Pantoprazole 40 MG VIAL IVP SCH (10:32)
[2019-09-03] MEDS: Furosemide 40 MG/4 ML VIAL SLOW IVP SCH (10:32)
[2019-09-03] MEDS: Rivaroxaban 10 MG TAB PO SCH (18:14)
--- NOTE | 2019-09-03 19:03 | PRG ---
DATE OF SERVICE: 09/03/2019 SUBJECTIVE: Mr. Werner is doing well today. He is not recorded as having any bowel movements. He states he has not had any nausea or vomiting. Temperature 97.5 degrees, pulse 59, blood pressure 116/63. He is n.p.o., ice chips only, sips of water only, medication with a sip of water. He has not had any vomiting. Urine output is acceptable. Bowel movements none recorded. This morning, his white count is 7 and hemoglobin 12. Basic metabolic profile normal. Glucose is 229 to 308. He has been started on TPN, has insulin in the TPN. OBJECTIVE: LUNGS: Clear to auscultation. CARDIAC: Regular rate and rhythm without murmur or gallop. ABDOMEN: Soft. Perhaps slightly less distended. Diminished bowel sounds. Midline wound, infraumbilical, well healed. EXTREMITIES: Unremarkable. ASSESSMENT AND PLAN: 1. Postoperative ileus. Continue n.p.o. except meds, sips, ice chips. We would not start him on a diet until he has definitive bowel function. He still remains distended and tympanitic. Obtain abdominal x-rays in the morning and follow labs. Continue TPN. 2. Malnutrition. 3. Ileus. Job ID: [id number]
--- NOTE | 2019-09-03 21:09 | PDOC.HOSPP ---
- Subjective Encounter Date: 09/03/19 Subjective: No bowel movements or passage of gas yet. Abdomen is still distended. - Objective Vital Signs & Weight: Vital Signs (12 hours) Temp Pulse Resp BP BP Pulse Ox 09/03/19 16:00 97.5 F L 59 L 16 116/63 09/03/19 14:01 144/77 H 09/03/19 13:57 97.4 F L 57 L 16 180/83 H 92 L Weight Admit Weight 226 lb 14.4 oz Weight 3.877 oz Most Recent Monitor Data Heart Rate from ECG 116 NIBP 137/112 NIBP BP-Mean 120 Respiration from ECG 3 SpO2 97 I&O: 09/02/19 09/03/19 09/04/19 06:59 06:59 06:59 Intake Total 1200 994 Output Total 524 160 4510 Balance 500 494 -2800 Result Diagrams: 09/03/19 06:13 09/03/19 06:13 Additional Labs: Accuchecks 09/03/19 09/03/19 09/03/19 17:39 11:26 06:42 POC Glucose 217 H 229 H 308 H Hospitalist ROS - Medication Medications: Active Medications Generic Name Dose Route Start Last Admin Trade Name Freq PRN Reason Stop Dose Admin Aspirin 81 mg 08/30/19 09:00 09/03/19 10:32 Ecotrin PO 81 mg DAILY KATHYA Administration Carvedilol 25 mg 08/30/19 17:00 09/03/19 17:46 Coreg PO Not Given BID-WM KATHYA Furosemide 40 mg 08/29/19 09:00 09/03/19 10:32 Lasix SLOW IVP 40 mg DAILY KATHYA Administration Lactated Ringer's 1,000 mls @ 50 mls/hr 09/01/19 14:00 09/02/19 23:33 Lactated Ringer's IV 1,000 mls .Q20H KATHYA Administration Sodium Acetate 70 meq/ Sodium 1,734.7359 mls @ 72.281 mls/hr 09/02/19 22:00 09/02/19 23:32 Chloride 35 meq/ Potassium IV 1,734.7359 mls Chloride 40 meq/ Calcium 2200 KATHYA Administration Chloride 10 meq/ Magnesium Sulfate 10 meq/ Multivitamins 10 ml/ Chromium/Copper/ Manganese/Seleni/Zn 1 ml/ Fat Emulsion Intravenous 250 ml/ Insulin Human Regular 17 units / Dextrose/Water/ Amino Acids/ Sterile Water Insulin Human Lispro 0 units 08/19/19 15:39 09/03/19 18:16 Humalog SC 4 unit .MODERATE SLIDING SC PRN Administration Moderate Correctional Scale Nitroglycerin 1 patch 08/26/19 09:00 09/03/19 10:32 Nitro-Dur 0.4mg/Hr Patch TD 1 patch DAILY KATHYA Administration Ondansetron HCl 4 mg 08/19/19 15:39 08/30/19 22:22 Zofran IVP 4 mg Q6H PRN Administration Nausea/Vomiting Pantoprazole Sodium 40 mg 08/28/19 09:00 09/03/19 10:32 Protonix IVP 40 mg DAILY KATHYA Administration Rivaroxaban 20 mg 08/30/19 18:00 09/03/19 18:14 Xarelto PO 20 mg 1800 KATHYA Administration Sodium Chloride 10 ml 08/19/19 15:39 08/30/19 09:49 Flush - Normal Saline IVF 10 ml PRN PRN Administration Saline Flush - Exam General Appearance: awake alert ENT: normocephalic atraumatic Neck: supple Heart: RRR Respiratory: normal chest expansion, no tachypnea Gastrointestinal: soft, distended, diminished bowl sounds Hosp A/P - Plan Hosp A/P (1) SBO (small bowel obstruction) Code(s): K56.609 - UNSP INTESTNL OBST, UNSP TO PARTIAL VERSUS COMPLETE OBST Status: Acute Plan: s/p laparotomy with REGINE POD #2, continue local wound care, NGT d/c'd and started clear liquids (2) Hypokalemia Code(s): E87.6 - HYPOKALEMIA Status: Acute Plan: Resolving, continue monitoring (3) Atrial fibrillation with RVR Code(s): I48.91 - UNSPECIFIED ATRIAL FIBRILLATION Status: Acute Plan: Rate-controlled, continue Coreg/Lovenox (4) Hypophosphatemia Code(s): E83.39 - OTHER DISORDERS OF PHOSPHORUS METABOLISM Status: Acute Plan: Resolving (5) Sepsis Code(s): A41.9 - SEPSIS, UNSPECIFIED ORGANISM Status: Acute Qualifiers: Sepsis type: sepsis due to unspecified organism Sepsis acute organ dysfunction status: without acute organ dysfunction Qualified Code(s): A41.9 - Sepsis, unspecified organism (6) Chronic anticoagulation Code(s): Z79.01 - SECOND CUTTER (CURRENT) USE OF ANTICOAGULANTS Status: Chronic Plan: Resume Xarelto when tolerating consistent po intake, continue Lovenox - Plan continue antibiotics, bilingual social worker, speech therapy, incentive spirometry, DVT proph w/SCDs 08/28: Stable currently Continue Meropenem IV Continue Coreg 12.5mg BID Continue Lovenox and will transition to Xarelto in next 24-48h CM for HH options including PT/OT, may consider inpt rehab CCU electrolyte protocol Clear liquids advancing to full in next 24h AM lab: CMP 08/29: The patient has been in A. fib with RVR since last night. Carvedilol increased to 25 mg orally twice daily with meals. Transitioning Lovenox to Xarelto tonight. His diet is advanced to full liquid diet. He is having bowel movements. Inpatient rehab assessment underway. 08/30: The patient had 2.3-second pause yesterday. His blood pressure remained stable. Currently rate controlled on diltiazem drip at 5 mg/h. Continue management per cardiology. Transfer to rehab once he is stable off diltiazem 08/31: The patient atrial fibrillation is now controlled on oral diltiazem. The patient did not have any bowel movements today or yesterday. His abdomen is distended and x-ray showing ileus versus bowel obstruction pattern. We will keep patient n.p.o. except for medications. Mobilization with PT and OT. Follow the patient's response and repeat x-ray in the morning as needed. Appreciate recommendations by surgery team. 09/01: Postoperative ileus. Bowel obstruction is unlikely given the presence of contrast in the colon. Continue bowel rest and supportive measures. His atrial fibrillation is rate controlled. CPAP for sleep apnea has been ordered for tonight. 09/02: The patient's mental status has improved since using CPAP last night. Unfortunately, no bowel movements or passage of gas yet. His bowel sounds appear to be more diminished than yesterday. Continue n.p.o. with TPN.
[2019-09-03] MEDS: [UNRECOGNIZED DRUG - OTHER] IV SCH (22:48)
[2019-09-03] MEDS: SODIUM CHLORIDE IV SCH (22:48)
[2019-09-03] MEDS: POTASSIUM CHLORIDE IV SCH (22:48)
[2019-09-03] MEDS: SODIUM ACETATE IV SCH (22:48)
[2019-09-04] MEDS: Lactated Ringer's 1,000 ML IV SCH (01:46)
[2019-09-04] MEDS: HumaLOG 300 UNITS/3 ML VIAL SC PRN ×4 (05:37→20:21)
[2019-09-04 07:02] LABS: Hemoglobin 11.7 g/dL (14.0-18.0); Mean Corpuscular HGB CONC 33.3 g/dL (32.0-36.0); Mean Corpuscular Hemoglobin 30.3 pg (27.0-31.0); Mean Corpuscular Volume 90.9 fL (78.0-98.0); Mean Platelet Volume 8.7 fL (7.4-10.4); Platelet Count 260 thou/uL (130-400); RBC Distribution Width 12.3 % (11.5-14.5); Red Blood Cell (RBC) Count 3.86 mill/uL (4.70-6.10); White Blood Cell (WBC) Count 7.4 thou/uL (4.8-10.8)
[2019-09-04 07:26] LABS: ALT (SGPT) 16 U/L (8-55); AST (SGOT) 16 U/L (5-34); Albumin 2.5 g/dL (3.4-4.8); Alkaline Phosphatase 43 U/L (40-110); Anion Gap 10 mmol/L (10-20); BUN (Urea Nitrogen) 23 mg/dL (8.4-25.7); Bilirubin, Total 0.3 mg/dL (0.2-1.2); Calc. Creatinine Clearance 107 mL/min (70-130); Calcium 7.7 mg/dL (7.8-10.44); Carbon Dioxide 31 mmol/L (23-31); Chloride 99 mmol/L (98-107); Estimated GFR-MDRD 81; Globulin 2.6 g/dL (2.4-3.5); Glucose 233 mg/dL (83-110); Magnesium 1.7 mg/dL (1.6-2.6); Phosphorus 2.3 mg/dL (2.3-4.7); Protein, Total 5.1 g/dL (5.8-8.1); Sodium 137 mmol/L (136-145)
[2019-09-04 07:29] LABS: Potassium 2.8 mmol/L (3.5-5.1)
[2019-09-04] MEDS ORDERED: Potassium Chloride 20 MEQ in Premix Bag 1 BAG IVPB SCH (08:00)
[2019-09-04 08:29] LABS: Band 2 % (5-11); Lymphocytes 21 % (21-51); MDiff Complete? YES; Monocytes 13 % (0-10); Neutrophil 64 % (42-75); RBC Morphology Normal
--- NOTE | 2019-09-04 10:33 | RAD ---
ABDOMEN 2 VIEWS AND CHEST 1 VIEW: HISTORY: Followup small bowel obstruction with postop9 ileus. COMPARISON: Abdomen 1 view 08/30/2019. Chest 1 view 08/28/2019. FINDINGS: Minimal blunting in the left costophrenic angle with borderline cardiomegaly. NG tube and endotrache al tubes have been removed. In the abdomen, there are persistently dilated loops of small bowel with air fluid levels as well as a borderline distended stomach with an air fluid level and some scattere d gas and some contrast within the colon. No free intraperitoneal air. IMPRESSION: Persistent abnormally dilated small bowel loops with air fluid levels as well as borderline distended stomach with an air fluid level with some gas and some contrast extending into the colon. POS: [facility]
[2019-09-04] MEDS: Potassium Chloride 20 MEQ in Premix Bag 1 BAG IVPB SCH ×4 (10:48→20:20)
[2019-09-04] MEDS: Pantoprazole 40 MG VIAL IVP SCH (10:49)
[2019-09-04] MEDS: Furosemide 40 MG/4 ML VIAL SLOW IVP SCH (10:50)
[2019-09-04] MEDS: Aspirin 81 mg Enteric Coated Tablet PO SCH (10:50)
[2019-09-04] MEDS: Nitroglycerin 0.4mg/Hour PATCH TD SCH (10:51)
[2019-09-04] MEDS: Insulin Glargine 5 UNITS in Pre-Filled Syringe 1 EACH SC SCH (11:02)
[2019-09-04] MEDS: Carvedilol 25 MG TAB PO SCH (11:04)
[2019-09-04] MEDS ORDERED: Carvedilol 25 MG TAB PO SCH (11:49)
[2019-09-04] MEDS ORDERED: Carvedilol 6.25 MG TAB PO SCH (12:00)
[2019-09-04] MEDS ORDERED: SODIUM ACETATE IV SCH (14:00)
[2019-09-04] MEDS ORDERED: [UNRECOGNIZED DRUG - OTHER] IV SCH (14:00)
[2019-09-04] MEDS ORDERED: SODIUM CHLORIDE IV SCH (14:00)
[2019-09-04] MEDS ORDERED: POTASSIUM CHLORIDE IV SCH (14:00)
--- NOTE | 2019-09-04 15:20 | PDOC.HOSPP ---
- Subjective Encounter Date: 09/04/19 Subjective: Passing gas today. - Objective Vital Signs & Weight: Vital Signs (12 hours) Temp Pulse Resp BP BP Pulse Ox 09/04/19 13:16 133/77 09/04/19 07:24 97.7 F 48 L 16 13377 94 L 09/04/19 04:31 96 Weight Admit Weight 226 lb 14.4 oz Weight 238 lb 1.588 oz Most Recent Monitor Data Heart Rate from ECG 116 NIBP 137/112 NIBP BP-Mean 120 Respiration from ECG 3 SpO2 97 I&O: 09/03/19 09/04/19 09/05/19 06:59 06:59 06:59 Intake Total 994 1080 Output Total 500 3750 Balance 494 -2670 Result Diagrams: 09/04/19 06:23 09/04/19 06:30 Additional Labs: Accuchecks 09/04/19 09/04/19 09/04/19 11:11 05:39 00:19 POC Glucose 203 H 267 H 173 H 09/03/19 17:39 POC Glucose 217 H Hospitalist ROS - Medication Medications: Active Medications Generic Name Dose Route Start Last Admin Trade Name Freq PRN Reason Stop Dose Admin Aspirin 81 mg 08/30/19 09:00 09/04/19 10:50 Ecotrin PO 81 mg DAILY KATHYA Administration Furosemide 40 mg 08/29/19 09:00 09/04/19 10:50 Lasix SLOW IVP 40 mg DAILY KATHYA Administration Lactated Ringer's 1,000 mls @ 50 mls/hr 09/01/19 14:00 09/04/19 01:46 Lactated Ringer's IV Not Given .Q20H KATHYA Potassium Chloride 20 meq/ 100 mls @ 50 mls/hr 09/04/19 09:00 09/04/19 13:17 Device IVPB 09/04/19 22:59 100 mls Q4HR KATHYA Administration Insulin Glargine 5 units/ 0.05 mls @ 0 mls/hr 09/04/19 09:00 09/04/19 11:02 Miscellaneous Medication SC 0.05 mls QAM KATHYA Administration Insulin Human Lispro 0 units 08/19/19 15:39 09/04/19 11:10 Humalog SC 4 unit .MODERATE SLIDING SC PRN Administration Moderate Correctional Scale Nitroglycerin 1 patch 08/26/19 09:00 09/04/19 10:51 Nitro-Dur 0.4mg/Hr Patch TD 1 patch DAILY KATHYA Administration Ondansetron HCl 4 mg 08/19/19 15:39 08/30/19 22:22 Zofran IVP 4 mg Q6H PRN Administration Nausea/Vomiting Pantoprazole Sodium 40 mg 08/28/19 09:00 09/04/19 10:49 Protonix IVP 40 mg DAILY KATHYA Administration Rivaroxaban 20 mg 08/30/19 18:00 09/03/19 18:14 Xarelto PO 20 mg 1800 KATHYA Administration Sodium Chloride 10 ml 08/19/19 15:39 08/30/19 09:49 Flush - Normal Saline IVF 10 ml PRN PRN Administration Saline Flush - Exam General Appearance: awake alert ENT: normocephalic atraumatic Neck: supple Respiratory: normal chest expansion, no tachypnea Gastrointestinal: soft, non-tender, normal bowel sounds, distended Neurological: cranial nerve grossly intact Hosp A/P - Plan Hosp A/P (1) SBO (small bowel obstruction) Code(s): K56.609 - UNSP INTESTNL OBST, UNSP TO PARTIAL VERSUS COMPLETE OBST Status: Acute Plan: s/p laparotomy with REGINE POD #2, continue local wound care, NGT d/c'd and started clear liquids (2) Hypokalemia Code(s): E87.6 - HYPOKALEMIA Status: Acute Plan: Resolving, continue monitoring (3) Atrial fibrillation with RVR Code(s): I48.91 - UNSPECIFIED ATRIAL FIBRILLATION Status: Acute Plan: Rate-controlled, continue Coreg/Lovenox (4) Hypophosphatemia Code(s): E83.39 - OTHER DISORDERS OF PHOSPHORUS METABOLISM Status: Acute Plan: Resolving (5) Sepsis Code(s): A41.9 - SEPSIS, UNSPECIFIED ORGANISM Status: Acute Qualifiers: Sepsis type: sepsis due to unspecified organism Sepsis acute organ dysfunction status: without acute organ dysfunction Qualified Code(s): A41.9 - Sepsis, unspecified organism (6) Chronic anticoagulation Code(s): Z79.01 - 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 fib with RVR since last night. Carvedilol increased to 25 mg orally twice daily with meals. Transitioning Lovenox to Xarelto tonight. His diet is advanced to full liquid diet. He is having bowel movements. Inpatient rehab assessment underway. 08/30: The patient had 2.3-second pause yesterday. His blood pressure remained stable. Currently rate controlled on diltiazem drip at 5 mg/h. Continue management per cardiology. Transfer to rehab once he is stable off diltiazem 08/31: The patient atrial fibrillation is now controlled on oral diltiazem. The patient did not have any bowel movements today or yesterday. His abdomen is distended and x-ray showing ileus versus bowel obstruction pattern. We will keep patient n.p.o. except for medications. Mobilization with PT and OT. Follow the patient's response and repeat x-ray in the morning as needed. Appreciate recommendations by surgery team. 09/01: Postoperative ileus. Bowel obstruction is unlikely given the presence of contrast in the colon. Continue bowel rest and supportive measures. His atrial fibrillation is rate controlled. CPAP for sleep apnea has been ordered for tonight. 09/02: The patient's mental status has improved since using CPAP last night. Unfortunately, no bowel movements or passage of gas yet. His bowel sounds appear to be more diminished than yesterday. Continue n.p.o. with TPN. 09/03: The patient is passing gas and bowel sounds area more pronounced today. Replace Potassium. AXR bowel series still showing ileus. Continue TPN.
[2019-09-04] MEDS: Rivaroxaban 10 MG TAB PO SCH (16:53)
[2019-09-04] MEDS: Carvedilol 6.25 MG TAB PO SCH (16:55)
--- NOTE | 2019-09-04 19:23 | PRG ---
DATE OF SERVICE: SUBJECTIVE: Andrae Werner is doing well. He has no complaints. Abdominal x-rays reveal ileus pattern with distended small bowel and colon. The stomach is slightly distended; however, the patient has not had any nausea or vomiting. He denies any discomfort. He continues to be n.p.o. He is on TPN. OBJECTIVE: Temperature 97 degrees, blood pressure 133/77, and respiratory rate 16. LABORATORY DATA: White count 7 and hemoglobin 11.7. Differential unremarkable. Potassium 2.8, has been replaced. Glucose 170 to 203. ASSESSMENT AND PLAN: Ileus. Continue TPN, n.p.o., try to avoid an NG tube, although he might need one if he develops any vomiting. Await bowel function. Hypokalemia, replaced. Poor mobility, but we will work with him as we are able. Status post laparoscopy, converted to laparotomy, adhesiolysis on 08/27/2019. Job ID: [id number]
[2019-09-04] MEDS: SODIUM CHLORIDE IV SCH (22:10)
[2019-09-04] MEDS: POTASSIUM CHLORIDE IV SCH (22:10)
[2019-09-04] MEDS: SODIUM ACETATE IV SCH (22:10)
[2019-09-04] MEDS: [UNRECOGNIZED DRUG - OTHER] IV SCH (22:10)
[2019-09-05] MEDS: HumaLOG 300 UNITS/3 ML VIAL SC PRN ×3 (05:25→19:54)
[2019-09-05 07:03] LABS: Anion Gap 8 mmol/L (10-20); BUN (Urea Nitrogen) 22 mg/dL (8.4-25.7); Calc. Creatinine Clearance 118 mL/min (70-130); Calcium 7.9 mg/dL (7.8-10.44); Carbon Dioxide 32 mmol/L (23-31); Chloride 101 mmol/L (98-107); Estimated GFR-MDRD Greater than 90; Glucose 234 mg/dL (83-110); Hemoglobin 11.5 g/dL (14.0-18.0); Magnesium 1.7 mg/dL (1.6-2.6); Mean Corpuscular Hemoglobin 30.7 pg (27.0-31.0); Mean Corpuscular Volume 90.2 fL (78.0-98.0); Mean Platelet Volume 8.6 fL (7.4-10.4); Platelet Count 287 thou/uL (130-400); Potassium 3.2 mmol/L (3.5-5.1); RBC Distribution Width 12.3 % (11.5-14.5); Red Blood Cell (RBC) Count 3.75 mill/uL (4.70-6.10); Sodium 138 mmol/L (136-145); White Blood Cell (WBC) Count 6.7 thou/uL (4.8-10.8)
[2019-09-05 07:04] LABS: Phosphorus 1.8 mg/dL (2.3-4.7)
[2019-09-05 07:24] LABS: Band 5 % (5-11); Eosinophils 4 % (0-10); Lymphocytes 24 % (21-51); MDiff Complete? YES; Monocytes 9 % (0-10); Neutrophil 57 % (42-75); RBC Morphology Normal; Reactive Lymphocytes 1 % (0-10)
[2019-09-05] MEDS ORDERED: Potassium Chloride 40 MEQ in Sodium Chloride 0.9% 250 ML 250 ML IVPB SCH (08:45)
[2019-09-05] MEDS: Carvedilol 6.25 MG TAB PO SCH ×2 (10:25→17:25)
[2019-09-05] MEDS: Insulin Glargine 5 UNITS in Pre-Filled Syringe 1 EACH SC SCH (10:26)
[2019-09-05] MEDS: Aspirin 81 mg Enteric Coated Tablet PO SCH (10:26)
[2019-09-05] MEDS: Furosemide 40 MG/4 ML VIAL SLOW IVP SCH (10:27)
[2019-09-05] MEDS: Nitroglycerin 0.4mg/Hour PATCH TD SCH (10:28)
[2019-09-05] MEDS: Pantoprazole 40 MG VIAL IVP SCH (10:35)
--- NOTE | 2019-09-05 14:00 | PRG ---
DATE OF SERVICE: 09/05/2019 SUBJECTIVE: Andrae Werner is doing better today. He has had multiple bowel movements yesterday. His is at the bedside and is verifying this. The patient has not had any vomiting. Denies any nausea. His notes that his abdomen is less distended. TPN is infusing. OBJECTIVE: LUNGS: Clear to auscultation. CARDIAC: Regular rate and rhythm without murmur or gallop. ABDOMEN: Protuberant, soft, nontender. Midline infraumbilical wound well healed. No signs of wound problems. He has occasional bowel sounds, much more numerous than yesterday. ASSESSMENT AND PLAN: Resolving ileus. Advance to clear liquids today. If he tolerates that, I would increased diet to full liquids, soft diet tomorrow as tolerated. I will be out of town the next week. Dr. Vital is seeing Debbi my absence. He will be seeing him daily. The patient should follow up in my office in the next 2 to 3 weeks. He probably is ready to go to a rehab next week or the weekend pending his bowel function. TPN can be discontinued once he is reliably tolerating his diet. Job ID: [id number]
[2019-09-05] MEDS: Potassium Chloride 20 MEQ in Premix Bag 1 BAG IVPB SCH ×2 (14:33→19:51)
[2019-09-05] MEDS: Lactated Ringer's 1,000 ML IV SCH (14:34)
[2019-09-05] MEDS: Rivaroxaban 10 MG TAB PO SCH (17:25)
--- NOTE | 2019-09-05 18:51 | PDOC.HOSPP ---
- Subjective Encounter Date: 09/05/19 - Objective Vital Signs & Weight: Vital Signs (12 hours) Temp Pulse Resp BP BP Pulse Ox 09/05/19 17:25 133/77 09/05/19 16:00 98.3 F 56 L 16 162/80 H 97 09/05/19 10:25 133/77 09/05/19 07:35 97.7 F 53 L 17 164/78 H 98 Weight Admit Weight 226 lb 14.4 oz Weight 231 lb 7.766 oz Most Recent Monitor Data Heart Rate from ECG 116 NIBP 137/112 NIBP BP-Mean 120 Respiration from ECG 3 SpO2 97 I&O: 09/04/19 09/05/19 09/06/19 06:59 06:59 06:59 Intake Total 1080 2495 480 Output Total 5447 1515 2100 Balance -2670 -1055 -1620 Result Diagrams: 09/05/19 06:20 09/05/19 06:20 Additional Labs: Accuchecks 09/05/19 09/05/19 09/05/19 16:20 11:44 04:37 POC Glucose 247 H 225 H 255 H 09/04/19 20:21 POC Glucose 278 H Hospitalist ROS - Medication Medications: Active Medications Generic Name Dose Route Start Last Admin Trade Name Freq PRN Reason Stop Dose Admin Aspirin 81 mg 08/30/19 09:00 09/05/19 10:26 Ecotrin PO 81 mg DAILY KATHYA Administration Carvedilol 6.25 mg 09/04/19 17:00 09/05/19 17:25 Coreg PO Not Given BID-WM KATHYA Furosemide 40 mg 08/29/19 09:00 09/05/19 10:27 Lasix SLOW IVP 40 mg DAILY KATHYA Administration Insulin Glargine 5 units/ 0.05 mls @ 0 mls/hr 09/04/19 09:00 09/05/19 10:26 Miscellaneous Medication SC 0.05 mls QAM KATHYA Administration Sodium Acetate 70 meq/ Sodium 1,754.7359 mls @ 73.114 mls/hr 09/04/19 22:00 09/04/19 22:10 Chloride 35 meq/ Potassium IV 09/05/19 22:00 1,754.7359 mls Chloride 80 meq/ Calcium 2200 KATYHA Administration Chloride 10 meq/ Magnesium Sulfate 10 meq/ Multivitamins 10 ml/ Chromium/Copper/ Manganese/Seleni/Zn 1 ml/ Fat Emulsion Intravenous 250 ml/ Insulin Human Regular 17 units / Dextrose/Water/ Amino Acids/ Sterile Water Lactated Ringer's 1,000 mls @ 0 mls/hr 09/04/19 18:41 09/05/19 14:34 Lactated Ringer's IV 1,000 mls .Q0M KATHYA Administration KVO Potassium Chloride 20 meq/ 100 mls @ 100 mls/hr 09/05/19 14:00 09/05/19 14:33 Device IVPB 09/06/19 08:59 100 mls Q6H KATHYA Administration Insulin Human Lispro 0 units 08/19/19 15:39 09/05/19 12:21 Humalog SC 4 unit .MODERATE SLIDING SC PRN Administration Moderate Correctional Scale Nitroglycerin 1 patch 08/26/19 09:00 09/05/19 10:28 Nitro-Dur 0.4mg/Hr Patch TD 1 patch DAILY KATHYA Administration Ondansetron HCl 4 mg 08/19/19 15:39 08/30/19 22:22 Zofran IVP 4 mg Q6H PRN Administration Nausea/Vomiting Pantoprazole Sodium 40 mg 08/28/19 09:00 09/05/19 10:35 Protonix IVP 40 mg DAILY KATHYA Administration Rivaroxaban 20 mg 08/30/19 18:00 09/05/19 17:25 Xarelto PO 20 mg 1800 KATHYA Administration Sodium Chloride 10 ml 08/19/19 15:39 08/30/19 09:49 Flush - Normal Saline IVF 10 ml PRN PRN Administration Saline Flush Hosp A/P - Plan Hosp A/P (1) SBO (small bowel obstruction) Code(s): K56.609 - UNSP INTESTNL OBST, UNSP TO PARTIAL VERSUS COMPLETE OBST Status: Acute Plan: s/p laparotomy with REGINE POD #2, continue local wound care, NGT d/c'd and started clear liquids (2) Hypokalemia Code(s): E87.6 - HYPOKALEMIA Status: Acute Plan: Resolving, continue monitoring (3) Atrial fibrillation with RVR Code(s): I48.91 - UNSPECIFIED ATRIAL FIBRILLATION Status: Acute Plan: Rate-controlled, continue Coreg/Lovenox (4) Hypophosphatemia Code(s): E83.39 - OTHER DISORDERS OF PHOSPHORUS METABOLISM Status: Acute Plan: Resolving (5) Sepsis Code(s): A41.9 - SEPSIS, UNSPECIFIED ORGANISM Status: Acute Qualifiers: Sepsis type: sepsis due to unspecified organism Sepsis acute organ dysfunction status: without acute organ dysfunction Qualified Code(s): A41.9 - Sepsis, unspecified organism (6) Chronic anticoagulation Code(s): Z79.01 - ALF (CURRENT) USE OF ANTICOAGULANTS Status: Chronic Plan: Resume Xarelto when tolerating consistent po intake, continue Lovenox - Plan continue antibiotics, secondary social studies teacher, speech therapy, incentive spirometry, DVT proph w/SCDs 08/28: Stable currently Continue Meropenem IV Continue Coreg 12.5mg BID Continue Lovenox and will transition to Xarelto in next 24-48h CM for HH options including PT/OT, may consider inpt rehab CCU electrolyte protocol Clear liquids advancing to full in next 24h AM lab: CMP 08/29: The patient has been in A. fib with RVR since last night. Carvedilol increased to 25 mg orally twice daily with meals. Transitioning Lovenox to Xarelto tonight. His diet is advanced to full liquid diet. He is having bowel movements. Inpatient rehab assessment underway. 08/30: The patient had 2.3-second pause yesterday. His blood pressure remained stable. Currently rate controlled on diltiazem drip at 5 mg/h. Continue management per cardiology. Transfer to rehab once he is stable off diltiazem 08/31: The patient atrial fibrillation is now controlled on oral diltiazem. The patient did not have any bowel movements today or yesterday. His abdomen is distended and x-ray showing ileus versus bowel obstruction pattern. We will keep patient n.p.o. except for medications. Mobilization with PT and OT. Follow the patient's response and repeat x-ray in the morning as needed. Appreciate recommendations by surgery team. 09/01: Postoperative ileus. Bowel obstruction is unlikely given the presence of contrast in the colon. Continue bowel rest and supportive measures. His atrial fibrillation is rate controlled. CPAP for sleep apnea has been ordered for tonight. 09/02: The patient's mental status has improved since using CPAP last night. Unfortunately, no bowel movements or passage of gas yet. His bowel sounds appear to be more diminished than yesterday. Continue n.p.o. with TPN. 09/03: The patient is passing gas and bowel sounds area more pronounced today. Replace Potassium. AXR bowel series still showing ileus. Continue TPN. 09/04: No BM yet. Diet advanced to liquids. Replace potassium.
[2019-09-05] MEDS: SODIUM ACETATE IV SCH (21:55)
[2019-09-05] MEDS: POTASSIUM CHLORIDE IV SCH (21:55)
[2019-09-05] MEDS: [UNRECOGNIZED DRUG - OTHER] IV SCH (21:55)
[2019-09-05] MEDS: SODIUM CHLORIDE IV SCH (21:55)
[2019-09-05] MEDS ORDERED: SODIUM PHOSPHATE IV SCH (22:00)
[2019-09-05] MEDS ORDERED: SODIUM CHLORIDE IV SCH (22:00)
[2019-09-05] MEDS ORDERED: [UNRECOGNIZED DRUG - OTHER] IV SCH (22:00)
[2019-09-05] MEDS ORDERED: POTASSIUM CHLORIDE IV SCH (22:00)
[2019-09-06] MEDS: Potassium Chloride 20 MEQ in Premix Bag 1 BAG IVPB SCH ×2 (01:21→10:34)
[2019-09-06] MEDS: HumaLOG 300 UNITS/3 ML VIAL SC PRN ×4 (01:21→17:17)
[2019-09-06 05:35] LABS: Anion Gap 10 mmol/L (10-20); BUN (Urea Nitrogen) 22 mg/dL (8.4-25.7); Calc. Creatinine Clearance 117 mL/min (70-130); Calcium 8.4 mg/dL (7.8-10.44); Carbon Dioxide 27 mmol/L (23-31); Chloride 101 mmol/L (98-107); Estimated GFR-MDRD Greater than 90; Glucose 265 mg/dL (83-110); Potassium 4.3 mmol/L (3.5-5.1); Sodium 134 mmol/L (136-145)
[2019-09-06 06:56] LABS: Band 11 % (5-11); Eosinophils 1 % (0-10); Hemoglobin 13.7 g/dL (14.0-18.0); Lymphocytes 10 % (21-51); MDiff Complete? YES; Mean Corpuscular Hemoglobin 30.7 pg (27.0-31.0); Mean Corpuscular Volume 90.3 fL (78.0-98.0); Mean Platelet Volume 8.5 fL (7.4-10.4); Monocytes 12 % (0-10); Myelocyte 1 % (0-0); Neutrophil 65 % (42-75); Platelet Count 363 thou/uL (130-400); RBC Distribution Width 12.5 % (11.5-14.5); Red Blood Cell (RBC) Count 4.47 mill/uL (4.70-6.10); White Blood Cell (WBC) Count 9.3 thou/uL (4.8-10.8)
[2019-09-06] MEDS: Furosemide 40 MG/4 ML VIAL SLOW IVP SCH (09:06)
[2019-09-06] MEDS: Aspirin 81 mg Enteric Coated Tablet PO SCH (09:06)
[2019-09-06] MEDS: Carvedilol 6.25 MG TAB PO SCH ×2 (09:06→18:35)
[2019-09-06] MEDS: Insulin Glargine 5 UNITS in Pre-Filled Syringe 1 EACH SC SCH (09:06)
[2019-09-06] MEDS: Pantoprazole 40 MG VIAL IVP SCH (09:07)
[2019-09-06] MEDS: Nitroglycerin 0.4mg/Hour PATCH TD SCH (09:07)
[2019-09-06] MEDS: Ondansetron PF 4 MG/2 ML Vial IVP PRN (12:27)
--- NOTE | 2019-09-06 13:44 | PRG ---
DATE OF SERVICE: 09/06/2019 SUBJECTIVE: Mr. Werner is a 73-year-old gentleman, who has unfortunately been in the hospital for prolonged period of time. He was admitted to the hospital on August 18. He underwent surgery for a distal small bowel obstruction per Dr. Castellon on August 26. He is therefore postoperative day #10 from his laparoscopy and subsequent laparotomy and treatment of his bowel obstruction. He is on TPN for nutritional support. The patient tells me that he vomited today. He believes he had a bowel movement earlier. He has a grossly distended abdomen. OBJECTIVE: VITAL SIGNS: On examination, he is afebrile. Pulse 65, blood pressure 163/81. LUNGS: Clear to auscultation anteriorly. ABDOMEN: Very distended. Incisions all appear to be healing appropriately. Bowel sounds are non-existent currently. LABORATORY DATA: His basic metabolic panel shows no significant electrolyte abnormalities. His glucose levels are persistently elevated between 220 and 280. I will attempt to adjust the insulin in his TPN. His CBC shows a normal hemoglobin of 13.7 with a white blood cell count of 9.3. ASSESSMENT AND PLAN: The patient with what appears to be a persistent ileus. He is only getting tramadol as necessary for pain. He has had a stroke in the past and has limited mobility and is not moving very much. Either way, he is not ready to advance his diet. I will change him back to n.p.o. and ice chips. I will obtain abdominal x-ray today and continue his TPN. If he has persistent problems with nausea or vomiting, he may require a nasogastric tube. Job ID: [id number]
--- NOTE | 2019-09-06 15:48 | RAD ---
Exam: Single view of the chest and 2 views of the abdomen HISTORY: Ileus/obstruction COMPARISON: 09/04/2019 FINDINGS: 2 views of the abdomen and a single view the chest shows multiple fluid-filled and air-fill ed loops of small bowel. The gastric bubble is significantly distended. Contrast is seen in the colon.. No free air is visualized on decubitus films. Air-fluid levels are seen within the small arvind l loops on decubitus films. The cardiomediastinal silhouette is normal in size. There is no evidence of consolidation, mass, or p leural effusion. A right subclavian central venous catheter seen with its tip in the superior vena cava. IMPRESSION: Stable exam with persistently dilated air and fluid-filled loops of small bowel. This may be secondary to partial small bowel obstruction or ileus.
[2019-09-06] MEDS: Rivaroxaban 10 MG TAB PO SCH (17:17)
[2019-09-06] MEDS: Lidocaine 4% Topical Sol 50 ML BOT TOP SCH ×2 (18:19→18:35)
[2019-09-06] MEDS: Benzocaine 20% Spray 60 ML CAN PO SCH ×2 (18:20→20:00)
[2019-09-06] MEDS ORDERED: Lidocaine Viscous Sol 2% 15 ml UD Cup SSW SCH (18:45)
[2019-09-06] MEDS ORDERED: Lidocaine 2% Jelly 5 ML TUBE TOP SCH (19:45)
--- NOTE | 2019-09-06 21:55 | PDOC.HOSPP ---
- Subjective Encounter Date: 09/06/19 - Objective Vital Signs & Weight: Vital Signs (12 hours) Temp Pulse Resp BP BP Pulse Ox 09/06/19 19:33 97.5 F L 64 17 148/73 H 94 L 09/06/19 17:14 66 116/72 Weight Admit Weight 226 lb 14.4 oz Weight 231 lb 7.766 oz Most Recent Monitor Data Heart Rate from ECG 116 NIBP 137/112 NIBP BP-Mean 120 Respiration from ECG 3 SpO2 97 I&O: 09/05/19 09/06/19 09/07/19 06:59 06:59 06:59 Intake Total 2495 1340 1906 Output Total 3550 2510 0 Balance -1055 -1170 -144 Result Diagrams: 09/06/19 05:05 09/06/19 05:05 Additional Labs: Accuchecks 09/06/19 09/06/19 09/06/19 19:32 16:24 11:09 POC Glucose 255 H 280 H 279 H 09/06/19 09/05/19 04:22 23:49 POC Glucose 264 H 222 H Hospitalist ROS - Medication Medications: Active Medications Generic Name Dose Route Start Last Admin Trade Name Freq PRN Reason Stop Dose Admin Aspirin 81 mg 08/30/19 09:00 09/06/19 09:06 Ecotrin PO 81 mg DAILY KATHYA Administration Carvedilol 6.25 mg 09/04/19 17:00 09/06/19 18:35 Coreg PO Not Given BID-WM KATHYA Furosemide 40 mg 08/29/19 09:00 09/06/19 09:06 Lasix SLOW IVP 40 mg DAILY KATHYA Administration Insulin Glargine 5 units/ 0.05 mls @ 0 mls/hr 09/04/19 09:00 09/06/19 09:06 Miscellaneous Medication SC 0.05 mls QAM KATHYA Administration Lactated Ringer's 1,000 mls @ 0 mls/hr 09/04/19 18:41 09/05/19 14:34 Lactated Ringer's IV 1,000 mls .Q0M KATHYA Administration KVO Sodium Chloride 35 meq/ Sodium 1,732.383 mls @ 72.183 mls/hr 09/05/19 22:00 09/05/19 21:50 Phosphate 60 mmol/ Potassium IV 09/06/19 21:59 1,732.383 mls Chloride 80 meq/ Magnesium 2200 KATHYA Administration Sulfate 10 meq/ Multivitamins 10 ml/ Chromium/Copper/ Manganese/Seleni/Zn 1 ml/ Fat Emulsion Intravenous 250 ml/ Insulin Human Regular 17 units / Dextrose/Water/ Amino Acids/ Sterile Water Insulin Human Lispro 0 units 08/19/19 15:39 09/06/19 17:17 Humalog SC 6 unit .MODERATE SLIDING SC PRN Administration Moderate Correctional Scale Nitroglycerin 1 patch 08/26/19 09:00 09/06/19 09:07 Nitro-Dur 0.4mg/Hr Patch TD 1 patch DAILY KATHYA Administration Ondansetron HCl 4 mg 08/19/19 15:39 09/06/19 12:27 Zofran IVP 4 mg Q6H PRN Administration Nausea/Vomiting Pantoprazole Sodium 40 mg 08/28/19 09:00 09/06/19 09:07 Protonix IVP 40 mg DAILY KATHYA Administration Rivaroxaban 20 mg 08/30/19 18:00 09/06/19 17:17 Xarelto PO 20 mg 1800 KATHYA Administration Sodium Chloride 10 ml 08/19/19 15:39 08/30/19 09:49 Flush - Normal Saline IVF 10 ml PRN PRN Administration Saline Flush - Exam General Appearance: awake alert ENT: normocephalic atraumatic Neck: supple Heart: RRR Respiratory: normal chest expansion, no tachypnea Gastrointestinal: soft, non-tender, normal bowel sounds, distended Hosp A/P - Plan Hosp A/P (1) SBO (small bowel obstruction) Code(s): K56.609 - UNSP INTESTNL OBST, UNSP TO PARTIAL VERSUS COMPLETE OBST Status: Acute Plan: s/p laparotomy with REGINE POD #2, continue local wound care, NGT d/c'd and started clear liquids (2) Hypokalemia Code(s): E87.6 - HYPOKALEMIA Status: Acute Plan: Resolving, continue monitoring (3) Atrial fibrillation with RVR Code(s): I48.91 - UNSPECIFIED ATRIAL FIBRILLATION Status: Acute Plan: Rate-controlled, continue Coreg/Lovenox (4) Hypophosphatemia Code(s): E83.39 - OTHER DISORDERS OF PHOSPHORUS METABOLISM Status: Acute Plan: Resolving (5) Sepsis Code(s): A41.9 - SEPSIS, UNSPECIFIED ORGANISM Status: Acute Qualifiers: Sepsis type: sepsis due to unspecified organism Sepsis acute organ dysfunction status: without acute organ dysfunction Qualified Code(s): A41.9 - Sepsis, unspecified organism (6) Chronic anticoagulation Code(s): Z79.01 - PENITENTIARY (CURRENT) USE OF ANTICOAGULANTS Status: Chronic Plan: Resume Xarelto when tolerating consistent po intake, continue Lovenox - Plan continue antibiotics, social and human services assistant, speech therapy, incentive spirometry, DVT proph w/SCDs 08/28: Stable currently Continue Meropenem IV Continue Coreg 12.5mg BID Continue Lovenox and will transition to Xarelto in next 24-48h CM for HH options including PT/OT, may consider inpt rehab CCU electrolyte protocol Clear liquids advancing to full in next 24h AM lab: CMP 08/29: The patient has been in A. fib with RVR since last night. Carvedilol increased to 25 mg orally twice daily with meals. Transitioning Lovenox to Xarelto tonight. His diet is advanced to full liquid diet. He is having bowel movements. Inpatient rehab assessment underway. 08/30: The patient had 2.3-second pause yesterday. His blood pressure remained stable. Currently rate controlled on diltiazem drip at 5 mg/h. Continue management per cardiology. Transfer to rehab once he is stable off diltiazem 08/31: The patient atrial fibrillation is now controlled on oral diltiazem. The patient did not have any bowel movements today or yesterday. His abdomen is distended and x-ray showing ileus versus bowel obstruction pattern. We will keep patient n.p.o. except for medications. Mobilization with PT and OT. Follow the patient's response and repeat x-ray in the morning as needed. Appreciate recommendations by surgery team. 09/01: Postoperative ileus. Bowel obstruction is unlikely given the presence of contrast in the colon. Continue bowel rest and supportive measures. His atrial fibrillation is rate controlled. CPAP for sleep apnea has been ordered for tonight. 09/02: The patient's mental status has improved since using CPAP last night. Unfortunately, no bowel movements or passage of gas yet. His bowel sounds appear to be more diminished than yesterday. Continue n.p.o. with TPN. 09/03: The patient is passing gas and bowel sounds area more pronounced today. Replace Potassium. AXR bowel series still showing ileus. Continue TPN. 09/04: No BM yet. Diet advanced to liquids. Replace potassium. 09/05: The patient stated that he had a bowel movement yesterday but he is somewhat confused and I cannot find a record about him having a bowel movement. His abdomen remains distended. N.p.o. per surgery. Continue TPN. His potassium level has improved after the replacement.
[2019-09-06] MEDS: [UNRECOGNIZED DRUG - OTHER] IV SCH (22:19)
[2019-09-06] MEDS: POTASSIUM CHLORIDE IV SCH (22:19)
[2019-09-06] MEDS: SODIUM CHLORIDE IV SCH (22:19)
[2019-09-07] MEDS: HumaLOG 300 UNITS/3 ML VIAL SC PRN ×2 (05:47→16:39)
[2019-09-07 06:50] LABS: Anion Gap 10 mmol/L (10-20); BUN (Urea Nitrogen) 26 mg/dL (8.4-25.7); Calc. Creatinine Clearance 121 mL/min (70-130); Calcium 7.9 mg/dL (7.8-10.44); Carbon Dioxide 29 mmol/L (23-31); Chloride 103 mmol/L (98-107); Estimated GFR-MDRD Greater than 90; Glucose 243 mg/dL (83-110); Magnesium 1.7 mg/dL (1.6-2.6); Potassium 3.9 mmol/L (3.5-5.1); Sodium 138 mmol/L (136-145)
[2019-09-07 06:54] LABS: Band 1 % (5-11); Eosinophils 2 % (0-10); Hemoglobin 12.4 g/dL (14.0-18.0); Hypochromia SLIGHT = 6-15 cells (100X) (0-5/hpf); Lymphocytes 9 % (21-51); MDiff Complete? YES; Mean Corpuscular Hemoglobin 29.9 pg (27.0-31.0); Mean Corpuscular Volume 90.7 fL (78.0-98.0); Mean Platelet Volume 8.8 fL (7.4-10.4); Monocytes 10 % (0-10); Neutrophil 78 % (42-75); Platelet Count 314 thou/uL (130-400); Platelet Morphology Comment Appears Adequate; RBC Distribution Width 12.3 % (11.5-14.5); Red Blood Cell (RBC) Count 4.15 mill/uL (4.70-6.10)
[2019-09-07 07:11] LABS: Phosphorus 4.1 mg/dL (2.3-4.7)
[2019-09-07] MEDS: Furosemide 40 MG/4 ML VIAL SLOW IVP SCH (08:35)
[2019-09-07] MEDS: Aspirin 81 mg Enteric Coated Tablet PO SCH (08:35)
[2019-09-07] MEDS: Carvedilol 6.25 MG TAB PO SCH ×2 (08:35→17:58)
[2019-09-07] MEDS: Pantoprazole 40 MG VIAL IVP SCH (08:36)
[2019-09-07] MEDS: Nitroglycerin 0.4mg/Hour PATCH TD SCH (08:36)
[2019-09-07] MEDS: Insulin Glargine 5 UNITS in Pre-Filled Syringe 1 EACH SC SCH (08:36)
--- NOTE | 2019-09-07 10:52 | RAD ---
EXAM: 2 views of the abdomen HISTORY: Ileus COMPARISON: 09/06/2019 FINDINGS: 2 views of the abdomen shows stable air-filled loops of small bowel in the mid abdomen. No free air or air-fluid levels are seen on decubitus examination. Air and contrast is seen in the colon. NG tube is in stomach. No suspicious calcifications are seen. The bones are unremarkable. IMPRESSION: Stable ileus versus partial small bowel obstruction
--- NOTE | 2019-09-07 11:28 | PRG ---
DATE OF SERVICE: 09/07/2019 SUBJECTIVE: Mr. Werner remains on the medical floor. Yesterday, was the first time that I had seen him. He is now postoperative day #11 from a laparoscopic and subsequent open treatment of bowel obstruction. He remains on TPN. He was grossly distended yesterday and had vomited. A subsequent KUB revealed massive gastric distention with distention of small and large bowel. I ordered a nasogastric tube, which was placed. There was 1500 mL of gastric drainage. He tells me that he feels much better. His abdomen is much less distended. He believes that he has had flatus and a bowel movement, although there is no nursing record of a bowel movement. OBJECTIVE: VITAL SIGNS: He is afebrile. Pulse 59, blood pressure 135/67. LUNGS: Clear to auscultation. ABDOMEN: Obese, but now does not appear distended. Incisions are healing nicely. Bowel sounds are either absent or very hypoactive. There is no tenderness to palpation. : It is noted that he still has a Velasquez catheter in place, although I am not certain why. LABORATORY DATA: His white blood cell count is elevated at 11, hemoglobin is 12. He does have a left shift. His electrolytes are unremarkable, but glucose is still elevated at 243. His phosphorus, magnesium, and calcium are all within normal limits. His prealbumin is low at 13. ASSESSMENT AND PLAN: The patient is stable at this time. He appears to have a postoperative ileus and this is unusual and that his surgery was 11 days ago. It does not appear that he is receiving any significant narcotic medication. I will remove his Velasquez catheter today and culture his urine to make sure he does not have a urinary tract infection. Continue nasogastric tube until evidence of ileus resolves. I will give him an enema today to stimulate activity from below. Job ID: [id number]
[2019-09-07] MEDS ORDERED: Fleet Enema 133 ML BOT FS SCH (12:00)
[2019-09-07] MEDS: Rivaroxaban 10 MG TAB PO SCH (17:58)
--- NOTE | 2019-09-07 20:34 | PDOC.HOSPP ---
- Subjective Encounter Date: 09/07/19 Subjective: His abdomen still distended. No bowel movements yet. - Objective Vital Signs & Weight: Vital Signs (12 hours) Temp Pulse Resp BP Pulse Ox 09/07/19 19:23 98.1 F 55 L 17 148/73 H 92 L 09/07/19 16:00 98.1 F 67 18 136/76 96 09/07/19 11:51 97.9 F 60 20 143/79 H 92 L Weight Admit Weight 226 lb 14.4 oz Weight 229 lb 15.074 oz Most Recent Monitor Data Heart Rate from ECG 116 NIBP 137/112 NIBP BP-Mean 120 Respiration from ECG 3 SpO2 97 I&O: 09/06/19 09/07/19 09/08/19 06:59 06:59 06:59 Intake Total 1340 3106 Output Total 2510 4200 650 Balance -1170 -1094 -650 Result Diagrams: 09/07/19 05:55 09/07/19 05:55 Additional Labs: Accuchecks 09/07/19 09/07/19 09/07/19 19:26 15:55 11:30 POC Glucose 217 H 254 H 241 H 09/07/19 04:08 POC Glucose 247 H Hospitalist ROS - Medication Medications: Active Medications Generic Name Dose Route Start Last Admin Trade Name Freq PRN Reason Stop Dose Admin Aspirin 81 mg 08/30/19 09:00 09/07/19 08:35 Ecotrin PO 81 mg DAILY KATHYA Administration Carvedilol 6.25 mg 09/04/19 17:00 09/07/19 17:58 Coreg PO 6.25 mg BID-WM KATHYA Administration Furosemide 40 mg 08/29/19 09:00 09/07/19 08:35 Lasix SLOW IVP 40 mg DAILY KATHYA Administration Insulin Glargine 5 units/ 0.05 mls @ 0 mls/hr 09/04/19 09:00 09/07/19 08:36 Miscellaneous Medication SC 0.05 mls QAM KATHYA Administration Lactated Ringer's 1,000 mls @ 0 mls/hr 09/04/19 18:41 09/05/19 14:34 Lactated Ringer's IV 1,000 mls .Q0M KATHYA Administration KVO Sodium Chloride 60 meq/ 1,763.8354 mls @ 73.493 mls/hr 09/06/19 22:00 22:19 Potassium Chloride 60 meq/ IV 1,763.8354 mls Magnesium Sulfate 10 meq/ 2200 KATHYA Administration Multivitamins 10 ml/ Chromium/ Copper/Manganese/Seleni/Zn 1 ml/ Insulin Human Regular 30 units/ Sodium Acetate 40 meq/ Potassium Phosphate 40 mmol/ Calcium Gluconate 10 meq/ Fat Emulsion Intravenous 250 ml/ Dextrose/Water/ Amino Acids/ Sterile Water Insulin Human Lispro 0 units 08/19/19 15:39 09/07/19 16:39 Humalog SC 6 unit .MODERATE SLIDING SC PRN Administration Moderate Correctional Scale Nitroglycerin 1 patch 08/26/19 09:00 09/07/19 08:36 Nitro-Dur 0.4mg/Hr Patch TD 1 patch DAILY KATHYA Administration Ondansetron HCl 4 mg 08/19/19 15:39 09/06/19 12:27 Zofran IVP 4 mg Q6H PRN Administration Nausea/Vomiting Pantoprazole Sodium 40 mg 08/28/19 09:00 09/07/19 08:36 Protonix IVP 40 mg DAILY KATHYA Administration Rivaroxaban 20 mg 08/30/19 18:00 09/07/19 17:58 Xarelto PO 20 mg 1800 KATHYA Administration Sodium Chloride 10 ml 08/19/19 15:39 08/30/19 09:49 Flush - Normal Saline IVF 10 ml PRN PRN Administration Saline Flush - Exam General Appearance: awake alert ENT: normocephalic atraumatic Neck: supple Heart: RRR, no murmur, no gallops, no rubs, normal peripheral pulses Respiratory: normal chest expansion, no tachypnea Gastrointestinal: soft, non-tender, distended, diminished bowl sounds Hosp A/P - Plan Hosp A/P (1) SBO (small bowel obstruction) Code(s): K56.609 - UNSP INTESTNL OBST, UNSP TO PARTIAL VERSUS COMPLETE OBST Status: Acute Plan: s/p laparotomy with REGINE POD #2, continue local wound care, NGT d/c'd and started clear liquids (2) Hypokalemia Code(s): E87.6 - HYPOKALEMIA Status: Acute Plan: Resolving, continue monitoring (3) Atrial fibrillation with RVR Code(s): I48.91 - UNSPECIFIED ATRIAL FIBRILLATION Status: Acute Plan: Rate-controlled, continue Coreg/Lovenox (4) Hypophosphatemia Code(s): E83.39 - OTHER DISORDERS OF PHOSPHORUS METABOLISM Status: Acute Plan: Resolving (5) Sepsis Code(s): A41.9 - SEPSIS, UNSPECIFIED ORGANISM Status: Acute Qualifiers: Sepsis type: sepsis due to unspecified organism Sepsis acute organ dysfunction status: without acute organ dysfunction Qualified Code(s): A41.9 - Sepsis, unspecified organism (6) Chronic anticoagulation Code(s): Z79.01 - PRISON (CURRENT) USE OF ANTICOAGULANTS Status: Chronic Plan: Resume Xarelto when tolerating consistent po intake, continue Lovenox - Plan Postoperative ileus is still persisting. The patient is on bowel rest and TPN. Hypokalemia corrected with replacement. Atrial fibrillation controlled on oral diltiazem and Coreg. He remains on Xarelto for anticoagulation.
[2019-09-07] MEDS: SODIUM CHLORIDE IV SCH (22:47)
[2019-09-07] MEDS: POTASSIUM CHLORIDE IV SCH (22:47)
[2019-09-07] MEDS: [UNRECOGNIZED DRUG - OTHER] IV SCH (22:47)
[2019-09-08 06:52] LABS: Anion Gap 12 mmol/L (10-20); BUN (Urea Nitrogen) 24 mg/dL (8.4-25.7); Calc. Creatinine Clearance 121 mL/min (70-130); Calcium 8.1 mg/dL (7.8-10.44); Carbon Dioxide 28 mmol/L (23-31); Chloride 105 mmol/L (98-107); Estimated GFR-MDRD Greater than 90; Glucose 208 mg/dL (83-110); Potassium 3.7 mmol/L (3.5-5.1); Sodium 141 mmol/L (136-145)
[2019-09-08] MEDS: Furosemide 40 MG/4 ML VIAL SLOW IVP SCH (08:42)
[2019-09-08] MEDS: Aspirin 81 mg Enteric Coated Tablet PO SCH (08:42)
[2019-09-08] MEDS: Carvedilol 6.25 MG TAB PO SCH ×2 (08:42→18:38)
[2019-09-08] MEDS: Insulin Glargine 5 UNITS in Pre-Filled Syringe 1 EACH SC SCH (08:42)
[2019-09-08] MEDS: Nitroglycerin 0.4mg/Hour PATCH TD SCH (08:43)
[2019-09-08] MEDS: Pantoprazole 40 MG VIAL IVP SCH (08:46)
--- NOTE | 2019-09-08 09:00 | PDOC.HOSPP ---
- Subjective Encounter Date: 09/08/19 Encounter Time: 13:45 Subjective: Patient reports possible couple of small bowel movements yesterday. No abdominal pain today. Distension almost gone since NGtube placed over weekend. - Objective Vital Signs & Weight: Vital Signs (12 hours) Temp Pulse Resp BP Pulse Ox 09/08/19 07:00 98.0 F 65 18 135/78 95 Weight Admit Weight 226 lb 14.4 oz Weight 230 lb 9.656 oz Most Recent Monitor Data Heart Rate from ECG 116 NIBP 137/112 NIBP BP-Mean 120 Respiration from ECG 3 SpO2 97 I&O: 09/07/19 09/08/19 09/09/19 06:59 06:59 06:59 Intake Total 3106 1200 Output Total 4200 800 Balance -1094 400 Result Diagrams: 09/08/19 05:15 09/08/19 05:15 Additional Labs: Accuchecks 09/08/19 09/07/19 09/07/19 04:18 19:26 15:55 POC Glucose 220 H 217 H 254 H 09/07/19 11:30 POC Glucose 241 H Hospitalist ROS - Review of Systems Constitutional: denies: fever, chills Respiratory: denies: cough, shortness of breath Cardiovascular: denies: chest pain, palpitations, orthopnea Gastrointestinal: denies: nausea, vomiting, abdominal pain - Medication Medications: Active Medications Generic Name Dose Route Start Last Admin Trade Name Freq PRN Reason Stop Dose Admin Aspirin 81 mg 08/30/19 09:00 09/07/19 08:35 Ecotrin PO 81 mg DAILY KATHYA Administration Carvedilol 6.25 mg 09/04/19 17:00 09/07/19 17:58 Coreg PO 6.25 mg BID-WM KATHYA Administration Furosemide 40 mg 08/29/19 09:00 09/07/19 08:35 Lasix SLOW IVP 40 mg DAILY KATHYA Administration Insulin Glargine 5 units/ 0.05 mls @ 0 mls/hr 09/04/19 09:00 09/07/19 08:36 Miscellaneous Medication SC 0.05 mls QAM KATHYA Administration Lactated Ringer's 1,000 mls @ 0 mls/hr 09/04/19 18:41 09/05/19 14:34 Lactated Ringer's IV 1,000 mls .Q0M KATHYA Administration KVO Sodium Chloride 60 meq/ 1,763.8354 mls @ 73.493 mls/hr 09/06/19 22:00 22:47 Potassium Chloride 60 meq/ IV 1,763.8354 mls Magnesium Sulfate 10 meq/ 2200 KATHYA Administration Multivitamins 10 ml/ Chromium/ Copper/Manganese/Seleni/Zn 1 ml/ Insulin Human Regular 30 units/ Sodium Acetate 40 meq/ Potassium Phosphate 40 mmol/ Calcium Gluconate 10 meq/ Fat Emulsion Intravenous 250 ml/ Dextrose/Water/ Amino Acids/ Sterile Water Insulin Human Lispro 0 units 08/19/19 15:39 09/07/19 16:39 Humalog SC 6 unit .MODERATE SLIDING SC PRN Administration Moderate Correctional Scale Nitroglycerin 1 patch 08/26/19 09:00 09/07/19 08:36 Nitro-Dur 0.4mg/Hr Patch TD 1 patch DAILY KATHYA Administration Ondansetron HCl 4 mg 08/19/19 15:39 09/06/19 12:27 Zofran IVP 4 mg Q6H PRN Administration Nausea/Vomiting Pantoprazole Sodium 40 mg 08/28/19 09:00 09/07/19 08:36 Protonix IVP 40 mg DAILY KATHYA Administration Rivaroxaban 20 mg 08/30/19 18:00 09/07/19 17:58 Xarelto PO 20 mg 1800 KATHYA Administration Sodium Chloride 10 ml 08/19/19 15:39 08/30/19 09:49 Flush - Normal Saline IVF 10 ml PRN PRN Administration Saline Flush - Exam General Appearance: NAD, awake alert ENT: moist mucosa Heart: RRR, no murmur, no gallops, no rubs Respiratory: CTAB, no wheezes, no rales, no ronchi Gastrointestinal: soft, non-tender, non-distended, diminished bowl sounds Psychiatric: normal affect, normal behavior Hosp A/P (1) SBO (small bowel obstruction) Code(s): K56.609 - UNSP INTESTNL OBST, UNSP TO PARTIAL VERSUS COMPLETE OBST Status: Acute (2) Atrial fibrillation with RVR Code(s): I48.91 - UNSPECIFIED ATRIAL FIBRILLATION Status: Chronic (3) Sepsis Code(s): A41.9 - SEPSIS, UNSPECIFIED ORGANISM Status: Resolved Qualifiers: Sepsis type: sepsis due to unspecified organism Sepsis acute organ dysfunction status: without acute organ dysfunction Qualified Code(s): A41.9 - Sepsis, unspecified organism (4) Chronic anticoagulation Code(s): Z79.01 - WELL LOGGER (CURRENT) USE OF ANTICOAGULANTS Status: Chronic (5) DM type 2 (diabetes mellitus, type 2) Status: Chronic Qualifiers: Diabetes mellitus skilled nursing insulin use: without skilled nursing use Diabetes mellitus complication status: with neurologic complications Diabetes mellitus complication detail: with polyneuropathy Qualified Code(s): E11.42 - Type 2 diabetes mellitus with diabetic polyneuropathy (6) Dyslipidemia Code(s): E78.5 - HYPERLIPIDEMIA, UNSPECIFIED Status: Chronic (7) HTN (hypertension) Code(s): I10 - ESSENTIAL (PRIMARY) HYPERTENSION Status: Chronic Qualifiers: Hypertension type: essential hypertension Qualified Code(s): I10 - Essential (primary) hypertension (8) Obesity (BMI 30.0-34.9) Code(s): E66.9 - OBESITY, UNSPECIFIED Status: Chronic - Plan Postoperative ileus is still persisting 12 days out. NG tube in place and on suction. Enema yesterday. General surgery following. The patient is on bowel rest and TPN. Hypokalemia corrected with replacement. Atrial fibrillation controlled on oral diltiazem and Coreg. He remains on Xarelto for anticoagulation.
[2019-09-08 11:03] LABS: Eosinophils 2 % (0-10); Hemoglobin 12.3 g/dL (14.0-18.0); Lymphocytes 21 % (21-51); MDiff Complete? YES; Mean Corpuscular HGB CONC 33.7 g/dL (32.0-36.0); Mean Corpuscular Hemoglobin 30.7 pg (27.0-31.0); Mean Corpuscular Volume 91.1 fL (78.0-98.0); Mean Platelet Volume 9.1 fL (7.4-10.4); Monocytes 16 % (0-10); Neutrophil 59 % (42-75); Platelet Count 293 thou/uL (130-400); RBC Distribution Width 12.5 % (11.5-14.5); Reactive Lymphocytes 2 % (0-10); Red Blood Cell (RBC) Count 4.01 mill/uL (4.70-6.10); White Blood Cell (WBC) Count 10.3 thou/uL (4.8-10.8)
--- NOTE | 2019-09-08 17:37 | PRG ---
DATE OF SERVICE: 09/08/2019 SUBJECTIVE: Mr. Werner remains in his bed on the medical floor. He is postoperative day #12 from a laparoscopic and subsequent open abdominal surgery for bowel obstruction. He remains on TPN. I placed a nasogastric tube on 09/05. He had extensive abdominal distention that improved thereafter. He put out 1500 mL immediately after placement of the NG tube, and is subsequently apparently only put out about 150 mL. He has not vomited. He tells me he has not had any other bowel movements either. I did give him an enema yesterday with some results apparently. The patient has no complaints. OBJECTIVE: VITAL SIGNS: On examination, he is afebrile, pulse 63, blood pressure 143/86. LUNGS: Clear to auscultation. ABDOMEN: Obese but not tremendously distended. There are still no bowel sounds audible. LABORATORY DATA: His basic metabolic panel is entirely normal except for an elevated glucose level of 208. His CBC shows a white blood cell count of 10.3, with a hemoglobin of 12.3 and a platelet count of 293 with a normal differential. ASSESSMENT: The patient with persistent and unexplained ileus 12 days out from surgery for a small-bowel obstruction. For now, I will continue nasogastric tube and TPN. I would encourage increased activity, but he has significant limitation secondary to his chronic disease processes. Job ID: [id number]
[2019-09-08] MEDS: Rivaroxaban 10 MG TAB PO SCH (18:38)
[2019-09-08] MEDS ORDERED: [UNRECOGNIZED DRUG - OTHER] IV SCH (22:00)
[2019-09-08] MEDS ORDERED: POTASSIUM CHLORIDE IV SCH (22:00)
[2019-09-08] MEDS ORDERED: SODIUM CHLORIDE IV SCH (22:00)
[2019-09-08] MEDS: POTASSIUM CHLORIDE IV SCH (22:30)
[2019-09-08] MEDS: SODIUM CHLORIDE IV SCH (22:30)
[2019-09-08] MEDS: [UNRECOGNIZED DRUG - OTHER] IV SCH (22:30)
[2019-09-09 06:30] LABS: Eosinophils 1 % (0-10); Hypochromia SLIGHT = 6-15 cells (100X) (0-5/hpf); Lymphocytes 18 % (21-51); MDiff Complete? YES; Mean Corpuscular HGB CONC 33.7 g/dL (32.0-36.0); Mean Corpuscular Hemoglobin 30.5 pg (27.0-31.0); Mean Corpuscular Volume 90.5 fL (78.0-98.0); Mean Platelet Volume 8.9 fL (7.4-10.4); Monocytes 10 % (0-10); Neutrophil 71 % (42-75); Platelet Count 278 thou/uL (130-400); Platelet Morphology Comment Appears Adequate; RBC Distribution Width 12.4 % (11.5-14.5); Red Blood Cell (RBC) Count 3.93 mill/uL (4.70-6.10); White Blood Cell (WBC) Count 11.9 thou/uL (4.8-10.8)
[2019-09-09 06:35] LABS: Anion Gap 9 mmol/L (10-20); BUN (Urea Nitrogen) 24 mg/dL (8.4-25.7); Calc. Creatinine Clearance 121 mL/min (70-130); Calcium 8.3 mg/dL (7.8-10.44); Carbon Dioxide 30 mmol/L (23-31); Chloride 104 mmol/L (98-107); Estimated GFR-MDRD Greater than 90; Glucose 199 mg/dL (83-110); Potassium 3.8 mmol/L (3.5-5.1); Sodium 139 mmol/L (136-145)
[2019-09-09 06:36] LABS: Magnesium 1.7 mg/dL (1.6-2.6); Phosphorus 3.7 mg/dL (2.3-4.7)
--- NOTE | 2019-09-09 08:19 | PDOC.HOSPP ---
- Subjective Encounter Date: 09/09/19 Encounter Time: 11:30 Subjective: Patient without complaints. Passing a little gas. No abdominal pain. - Objective Vital Signs & Weight: Vital Signs (12 hours) Temp Pulse Resp BP BP Pulse Ox 09/09/19 07:17 98.1 F 59 L 18 148/67 H 95 09/09/19 04:00 98.4 F 67 18 152/78 H 94 L 09/09/19 00:00 98.9 F 65 18 153/73 H 93 L Weight Admit Weight 226 lb 14.4 oz Weight 230 lb 9.656 oz Most Recent Monitor Data Heart Rate from ECG 116 NIBP 137/112 NIBP BP-Mean 120 Respiration from ECG 3 SpO2 97 I&O: 09/08/19 09/09/19 09/10/19 06:59 06:59 06:59 Intake Total 1200 2125 Output Total 800 Balance 400 2125 Result Diagrams: 09/09/19 06:00 09/09/19 06:00 Additional Labs: Accuchecks 09/09/19 09/08/19 09/08/19 04:49 19:48 16:14 POC Glucose 196 H 210 H 210 H 09/08/19 11:11 POC Glucose 223 H Hospitalist ROS - Review of Systems Constitutional: denies: fever, chills Respiratory: denies: cough, shortness of breath, pleuritic pain Cardiovascular: denies: chest pain, palpitations Gastrointestinal: denies: nausea, vomiting, abdominal pain, diarrhea Neurological: reports: weakness - Medication Medications: Active Medications Generic Name Dose Route Start Last Admin Trade Name Freq PRN Reason Stop Dose Admin Aspirin 81 mg 08/30/19 09:00 09/08/19 08:42 Ecotrin PO 81 mg DAILY KATHYA Administration Carvedilol 6.25 mg 09/04/19 17:00 09/08/19 18:38 Coreg PO 6.25 mg BID-WM KATHYA Administration Furosemide 40 mg 08/29/19 09:00 09/08/19 08:42 Lasix SLOW IVP 40 mg DAILY KATHYA Administration Insulin Glargine 5 units/ 0.05 mls @ 0 mls/hr 09/04/19 09:00 09/08/19 08:42 Miscellaneous Medication SC 0.05 mls QAM KATHYA Administration Lactated Ringer's 1,000 mls @ 0 mls/hr 09/04/19 18:41 09/05/19 14:34 Lactated Ringer's IV 1,000 mls .Q0M KATHYA Administration KVO Insulin Human Lispro 0 units 08/19/19 15:39 09/07/19 16:39 Humalog SC 6 unit .MODERATE SLIDING SC PRN Administration Moderate Correctional Scale Nitroglycerin 1 patch 08/26/19 09:00 09/08/19 08:43 Nitro-Dur 0.4mg/Hr Patch TD 1 patch DAILY KATHYA Administration Ondansetron HCl 4 mg 08/19/19 15:39 09/06/19 12:27 Zofran IVP 4 mg Q6H PRN Administration Nausea/Vomiting Pantoprazole Sodium 40 mg 08/28/19 09:00 09/08/19 08:46 Protonix IVP 40 mg DAILY KATHYA Administration Rivaroxaban 20 mg 08/30/19 18:00 09/08/19 18:38 Xarelto PO 20 mg 1800 KATHYA Administration Sodium Chloride 10 ml 08/19/19 15:39 08/30/19 09:49 Flush - Normal Saline IVF 10 ml PRN PRN Administration Saline Flush - Exam General Appearance: NAD, awake alert ENT: moist mucosa Heart: RRR, no murmur, no gallops, no rubs Respiratory: CTAB, no wheezes, no rales, no ronchi Gastrointestinal: soft, non-tender, non-distended, diminished bowl sounds Psychiatric: normal affect, normal behavior, A&O x 3 Hosp A/P (1) SBO (small bowel obstruction) Code(s): K56.609 - UNSP INTESTNL OBST, UNSP TO PARTIAL VERSUS COMPLETE OBST Status: Acute (2) Atrial fibrillation with RVR Code(s): I48.91 - UNSPECIFIED ATRIAL FIBRILLATION Status: Chronic (3) Sepsis Code(s): A41.9 - SEPSIS, UNSPECIFIED ORGANISM Status: Resolved Qualifiers: Sepsis type: sepsis due to unspecified organism Sepsis acute organ dysfunction status: without acute organ dysfunction Qualified Code(s): A41.9 - Sepsis, unspecified organism (4) Chronic anticoagulation Code(s): Z79.01 - FDC (CURRENT) USE OF ANTICOAGULANTS Status: Chronic (5) DM type 2 (diabetes mellitus, type 2) Status: Chronic Qualifiers: Diabetes mellitus chcf insulin use: without chcf use Diabetes mellitus complication status: with neurologic complications Diabetes mellitus complication detail: with polyneuropathy Qualified Code(s): E11.42 - Type 2 diabetes mellitus with diabetic polyneuropathy (6) Dyslipidemia Code(s): E78.5 - HYPERLIPIDEMIA, UNSPECIFIED Status: Chronic (7) HTN (hypertension) Code(s): I10 - ESSENTIAL (PRIMARY) HYPERTENSION Status: Chronic Qualifiers: Hypertension type: essential hypertension Qualified Code(s): I10 - Essential (primary) hypertension (8) Obesity (BMI 30.0-34.9) Code(s): E66.9 - OBESITY, UNSPECIFIED Status: Chronic - Plan Postoperative ileus is still persisting 13 days out. NG tube in place and on suction. General surgery following. Trying Reglan and Fleets enema. The patient is on bowel rest and TPN. Hypokalemia corrected with replacement. Mg, Phos, and Calcium all normal. Atrial fibrillation controlled on oral diltiazem and Coreg. He remains on Xarelto for anticoagulation.
--- NOTE | 2019-09-09 09:07 | PRG ---
DATE OF SERVICE: 09/09/2019 SUBJECTIVE: Mr. Werner is a postoperative day #13 from a laparoscopic and subsequent open abdominal surgery for bowel obstruction by Dr. Castellon. He remains on TPN. He had an obvious abdominal distention that I suspect was related to ileus, and I replaced his nasogastric tube on September 05. His abdomen is still much less distended than when I placed it. His volume of NG output has decreased significantly. I do not have a volume for what was in the last 24 hours. He has not had a bowel movement over the last couple of days. He tells me that he believes he is having some flatus. He is of course unable to ambulate secondary to his history of a stroke. He is getting out of bed to chair. OBJECTIVE: VITAL SIGNS: He is afebrile. Pulse 59, blood pressure 148/67. LUNGS: Clear to auscultation. ABDOMEN: Obese, but I do not believe it is distended. It is soft and nontender. There are essentially no bowel sounds. LABORATORY DATA: The basic metabolic panel is normal, except for the glucose level, which is 199. The CBC shows white blood cell count of 11.9, hemoglobin of 12, unremarkable differential. ASSESSMENT AND PLAN: The patient is stable currently with TPN and nasogastric tube. He appears to have an extended ileus of uncertain etiology. He is on no narcotics, has no evidence of any infection, and his electrolytes are all normal. For right now, continue nasogastric tube and TPN. I will start him on metoclopramide to see if that makes any difference. I am going to give him another Fleets Enema today. As soon as there is evidence of any bowel function, I would like to obtain a Gastrografin small bowel follow through to ensure bowel patency. He does not appear to be ready for that at this point. Job ID: [id number]
[2019-09-09] MEDS: Carvedilol 6.25 MG TAB PO SCH ×2 (10:13→18:24)
[2019-09-09] MEDS: Furosemide 40 MG/4 ML VIAL SLOW IVP SCH (10:13)
[2019-09-09] MEDS: Pantoprazole 40 MG VIAL IVP SCH (10:13)
[2019-09-09] MEDS: Aspirin 81 mg Enteric Coated Tablet PO SCH (10:16)
[2019-09-09] MEDS: Insulin Glargine 5 UNITS in Pre-Filled Syringe 1 EACH SC SCH (10:16)
[2019-09-09] MEDS: Nitroglycerin 0.4mg/Hour PATCH TD SCH (10:17)
[2019-09-09] MEDS ORDERED: Fleet Enema 133 ML BOT FS SCH (12:00)
[2019-09-09] MEDS: Metoclopramide HCl 10 MG/2 ML VIAL IVP SCH ×2 (13:23→18:24)
[2019-09-09] MEDS: Lactated Ringer's 1,000 ML IV SCH (15:56)
[2019-09-09] MEDS: Rivaroxaban 10 MG TAB PO SCH (18:24)
[2019-09-09] MEDS ORDERED: POTASSIUM CHLORIDE IV SCH ×2 (18:45→22:00)
[2019-09-09] MEDS ORDERED: SODIUM ACETATE IV SCH ×3 (18:45→22:00)
[2019-09-09] MEDS ORDERED: SODIUM CHLORIDE IV SCH ×2 (18:45→22:00)
[2019-09-09] MEDS ORDERED: [UNRECOGNIZED DRUG - OTHER] IV SCH (18:45)
[2019-09-09] MEDS ORDERED: [UNRECOGNIZED DRUG - OTHER] IV SCH ×2 (19:45→22:00)
[2019-09-09] MEDS ORDERED: STERILE WATER IV SCH ×3 (19:45→22:00)
[2019-09-09] MEDS: REMOVE NITRO PATCH TD SCH (20:23)
[2019-09-09] MEDS ORDERED: [UNRECOGNIZED DRUG - OTHER] IV SCH (22:00)
[2019-09-10] MEDS: Metoclopramide HCl 10 MG/2 ML VIAL IVP SCH ×5 (00:33→23:32)
[2019-09-10 06:27] LABS: Anion Gap 9 mmol/L (10-20); BUN (Urea Nitrogen) 25 mg/dL (8.4-25.7); Calc. Creatinine Clearance 120 mL/min (70-130); Carbon Dioxide 31 mmol/L (23-31); Chloride 105 mmol/L (98-107); Estimated GFR-MDRD Greater than 90; Glucose 175 mg/dL (83-110); Potassium 3.8 mmol/L (3.5-5.1); Sodium 141 mmol/L (136-145)
--- NOTE | 2019-09-10 07:53 | PDOC.HOSPP ---
- Subjective Encounter Date: 09/10/19 Encounter Time: 10:00 Subjective: Patient unchanged. No abdominal pain, but not passing stools that he has noticed , just some gas. 2 stools noted on nursing notes. - Objective Vital Signs & Weight: Vital Signs (12 hours) Temp Pulse Resp BP Pulse Ox 09/10/19 07:23 97.9 F 62 16 156/65 H 96 09/10/19 04:00 99.0 F 75 18 164/78 H 98 09/10/19 00:00 98.8 F 56 L 16 158/80 H 94 L 09/09/19 20:00 94 L 09/09/19 19:53 98.6 F 67 16 144/83 H 94 L Weight Admit Weight 226 lb 14.4 oz Weight 223 lb 15.834 oz Most Recent Monitor Data Heart Rate from ECG 116 NIBP 137/112 NIBP BP-Mean 120 Respiration from ECG 3 SpO2 97 I&O: 09/09/19 09/10/19 09/11/19 06:59 06:59 06:59 Intake Total 2125 2286 Output Total 700 Balance 2125 1586 Result Diagrams: 09/10/19 05:35 09/10/19 05:35 Additional Labs: Accuchecks 09/10/19 09/09/19 09/09/19 04:32 19:42 16:12 POC Glucose 158 H 180 H 191 H 09/09/19 11:04 POC Glucose 196 H Hospitalist ROS - Review of Systems Constitutional: denies: fever, chills Respiratory: denies: cough, shortness of breath Cardiovascular: denies: chest pain, palpitations, orthopnea Gastrointestinal: denies: nausea, vomiting, abdominal pain - Medication Medications: Active Medications Generic Name Dose Route Start Last Admin Trade Name Freq PRN Reason Stop Dose Admin Aspirin 81 mg 08/30/19 09:00 09/09/19 10:16 Ecotrin PO 81 mg DAILY KATHYA Administration Carvedilol 6.25 mg 09/04/19 17:00 09/09/19 18:24 Coreg PO 6.25 mg BID-WM KATHYA Administration Furosemide 40 mg 08/29/19 09:00 09/09/19 10:13 Lasix SLOW IVP 40 mg DAILY KATHYA Administration Insulin Glargine 5 units/ 0.05 mls @ 0 mls/hr 09/04/19 09:00 09/09/19 10:16 Miscellaneous Medication SC 0.05 mls QAM KATHYA Administration Lactated Ringer's 1,000 mls @ 0 mls/hr 09/04/19 18:41 09/09/19 15:56 Lactated Ringer's IV 1,000 mls .Q0M KATHYA Administration KVO Sterile Water 200 ml/ Sodium 1,770.7021 mls @ 73.779 mls/hr 09/09/19 22:00 22:50 Acetate 40 meq/ Sodium IV 09/10/19 21:59 1,770.7021 mls Chloride 60 meq/ Potassium INF KATHYA Administration Chloride 80 meq/ Potassium Phosphate 30 mmol/ Calcium Gluconate 10 meq/ Magnesium Sulfate 10 meq/ Multivitamins 10 ml/ Chromium/Copper/ Manganese/Seleni/Zn 1 ml/ Insulin Human Regular 50 units / Amino Acids/ Dextrose/Water/ Fat Emulsion Intravenous Insulin Human Lispro 0 units 08/19/19 15:39 09/07/19 16:39 Humalog SC 6 unit .MODERATE SLIDING SC PRN Administration Moderate Correctional Scale Metoclopramide HCl 10 mg 09/09/19 12:00 09/10/19 06:39 Reglan IVP 10 mg Q6HR KATHYA Administration Nitroglycerin 1 patch 08/26/19 09:00 09/09/19 10:17 Nitro-Dur 0.4mg/Hr Patch TD 1 patch DAILY KATHYA Administration Ondansetron HCl 4 mg 08/19/19 15:39 09/06/19 12:27 Zofran IVP 4 mg Q6H PRN Administration Nausea/Vomiting Pantoprazole Sodium 40 mg 08/28/19 09:00 09/09/19 10:13 Protonix IVP 40 mg DAILY KATHYA Administration Remove Nitro Patch 0 each 09/09/19 21:00 09/09/19 20:23 TD 1 each 2100 KATHYA Administration Rivaroxaban 20 mg 08/30/19 18:00 09/09/19 18:24 Xarelto PO 20 mg 1800 KATHYA Administration Sodium Chloride 10 ml 08/19/19 15:39 08/30/19 09:49 Flush - Normal Saline IVF 10 ml PRN PRN Administration Saline Flush - Exam General Appearance: NAD, awake alert ENT: moist mucosa Heart: RRR, no murmur, no gallops, no rubs Respiratory: CTAB, no wheezes, no rales, no ronchi Gastrointestinal: soft, non-tender Gastrointestinal - other findings: improved bowel sounds today Psychiatric: normal affect, normal behavior, A&O x 3 Hosp A/P (1) SBO (small bowel obstruction) Code(s): K56.609 - UNSP INTESTNL OBST, UNSP TO PARTIAL VERSUS COMPLETE OBST Status: Acute (2) Atrial fibrillation with RVR Code(s): I48.91 - UNSPECIFIED ATRIAL FIBRILLATION Status: Chronic (3) Sepsis Code(s): A41.9 - SEPSIS, UNSPECIFIED ORGANISM Status: Resolved Qualifiers: Sepsis type: sepsis due to unspecified organism Sepsis acute organ dysfunction status: without acute organ dysfunction Qualified Code(s): A41.9 - Sepsis, unspecified organism (4) Chronic anticoagulation Code(s): Z79.01 - INTERMEDIATE (CURRENT) USE OF ANTICOAGULANTS Status: Chronic (5) DM type 2 (diabetes mellitus, type 2) Status: Chronic Qualifiers: Diabetes mellitus halfway insulin use: without terminal operator use Diabetes mellitus complication status: with neurologic complications Diabetes mellitus complication detail: with polyneuropathy Qualified Code(s): E11.42 - Type 2 diabetes mellitus with diabetic polyneuropathy (6) Dyslipidemia Code(s): E78.5 - HYPERLIPIDEMIA, UNSPECIFIED Status: Chronic (7) HTN (hypertension) Code(s): I10 - ESSENTIAL (PRIMARY) HYPERTENSION Status: Chronic Qualifiers: Hypertension type: essential hypertension Qualified Code(s): I10 - Essential (primary) hypertension (8) Obesity (BMI 30.0-34.9) Code(s): E66.9 - OBESITY, UNSPECIFIED Status: Chronic - Plan Postoperative ileus is still persisting 14 days out. NG tube in place and on suction. General surgery following. Trying Reglan and Fleets enema. Had 2 recorded bowel movements in the nursing notes from yesterday. The patient is on bowel rest and TPN. Hypokalemia corrected with replacement. Mg, Phos, and Calcium all normal. Atrial fibrillation controlled on oral diltiazem and Coreg. He remains on Xarelto for anticoagulation.
[2019-09-10 08:13] LABS: Band 8 % (5-11); Eosinophils 3 % (0-10); Hemoglobin 11.9 g/dL (14.0-18.0); Lymphocytes 19 % (21-51); MDiff Complete? YES; Mean Corpuscular HGB CONC 33.9 g/dL (32.0-36.0); Mean Corpuscular Hemoglobin 30.8 pg (27.0-31.0); Mean Corpuscular Volume 90.9 fL (78.0-98.0); Mean Platelet Volume 9.2 fL (7.4-10.4); Monocytes 11 % (0-10); Neutrophil 55 % (42-75); Platelet Count 262 thou/uL (130-400); Platelet Morphology Comment Appears Adequate; Polychromasia SLIGHT = 2-3 cells (100X) (0-2/hpf); RBC Distribution Width 12.5 % (11.5-14.5); Reactive Lymphocytes 3 % (0-10); Red Blood Cell (RBC) Count 3.86 mill/uL (4.70-6.10); White Blood Cell (WBC) Count 10.7 thou/uL (4.8-10.8)
[2019-09-10] MEDS: Aspirin 81 mg Enteric Coated Tablet PO SCH (08:49)
[2019-09-10] MEDS: Carvedilol 6.25 MG TAB PO SCH ×2 (08:49→16:36)
[2019-09-10] MEDS: Insulin Glargine 5 UNITS in Pre-Filled Syringe 1 EACH SC SCH (08:50)
[2019-09-10] MEDS: Furosemide 40 MG/4 ML VIAL SLOW IVP SCH (08:50)
[2019-09-10] MEDS: Pantoprazole 40 MG VIAL IVP SCH (08:51)
[2019-09-10] MEDS: Nitroglycerin 0.4mg/Hour PATCH TD SCH (08:56)
[2019-09-10] MEDS: Ondansetron PF 4 MG/2 ML Vial IVP PRN (11:08)
[2019-09-10] MEDS ORDERED: MD-Gastroview 120 ML BOT ONE (16:13)
[2019-09-10] MEDS: Rivaroxaban 10 MG TAB PO SCH (18:01)
[2019-09-10] MEDS: REMOVE NITRO PATCH TD SCH (19:46)
[2019-09-10] MEDS: HumaLOG 300 UNITS/3 ML VIAL SC PRN (19:47)
[2019-09-11] MEDS: STERILE WATER IV SCH (02:03)
[2019-09-11] MEDS: [UNRECOGNIZED DRUG - OTHER] IV SCH (02:03)
[2019-09-11] MEDS: SODIUM ACETATE IV SCH (02:03)
[2019-09-11] MEDS: Lactated Ringer's 1,000 ML IV SCH (02:03)
[2019-09-11] MEDS: Metoclopramide HCl 10 MG/2 ML VIAL IVP SCH ×3 (05:11→17:28)
[2019-09-11 05:46] LABS: Band 12 % (5-11); Eosinophils 2 % (0-10); Lymphocytes 12 % (21-51); MDiff Complete? YES; Mean Corpuscular HGB CONC 32.9 g/dL (32.0-36.0); Mean Corpuscular Volume 91.2 fL (78.0-98.0); Mean Platelet Volume 9.6 fL (7.4-10.4); Monocytes 14 % (0-10); Neutrophil 59 % (42-75); Platelet Count 304 thou/uL (130-400); Platelet Morphology Comment Appears Adequate; RBC Distribution Width 12.7 % (11.5-14.5); Red Blood Cell (RBC) Count 4.33 mill/uL (4.70-6.10); White Blood Cell (WBC) Count 13.2 thou/uL (4.8-10.8)
[2019-09-11 05:54] LABS: Anion Gap 13 mmol/L (10-20); BUN (Urea Nitrogen) 37 mg/dL (8.4-25.7); Calc. Creatinine Clearance 93 mL/min (70-130); Calcium 9.1 mg/dL (7.8-10.44); Carbon Dioxide 29 mmol/L (23-31); Chloride 105 mmol/L (98-107); Estimated GFR-MDRD 74; Glucose 212 mg/dL (83-110); Potassium 4.3 mmol/L (3.5-5.1); Sodium 143 mmol/L (136-145)
[2019-09-11] MEDS: HumaLOG 300 UNITS/3 ML VIAL SC PRN (06:02)
--- NOTE | 2019-09-11 07:15 | RAD ---
EXAM: XR Small Bowel STANDARD DATE: 09/10/2019 9:00 AM INDICATION: Small bowel obstruction COMPARISON: Comparison small bowel follow-through dated 08/26/[address] of the abdomen and pelvis dated 08/24/2019 FINDING: Scattered images demonstrate prominent gas-filled dilated loops of small bowel within the u pper abdomen. There is previously administered enteric contrast within the lower colon. There is gas present within the left hemicolon region of the rectum. There is a gastric catheter in place. Subsequent images demonstrate antegrade administration of approximately 240 cc of Gastrografin throug h the gastric catheter. Subsequent images obtained over 4 hours demonstrate migration of the contrast to the level of the mid jejunum. There are dilated loops of distal ileum remaining. IMPRESSION:Findings most consistent with a high-grade partial small bowel obstruction likely at the r egion of the distal ileum.
[2019-09-11] MEDS: Carvedilol 6.25 MG TAB PO SCH ×2 (08:18→17:29)
[2019-09-11] MEDS: Aspirin 81 mg Enteric Coated Tablet PO SCH (08:18)
[2019-09-11] MEDS: Furosemide 40 MG/4 ML VIAL SLOW IVP SCH (08:18)
[2019-09-11] MEDS: Insulin Glargine 5 UNITS in Pre-Filled Syringe 1 EACH SC SCH (08:19)
[2019-09-11] MEDS: Nitroglycerin 0.4mg/Hour PATCH TD SCH (08:19)
[2019-09-11] MEDS: Pantoprazole 40 MG VIAL IVP SCH (08:20)
--- NOTE | 2019-09-11 11:36 | CT ---
CT ABDOMEN AND PELVIS WITH IV CONTRAST: Oral contrast was administered. INDICATION: Small bowel obstruction versus ileus. Abdominal pain. COMPARISON: Comparison is made to CT abdomen and pelvis performed 08/24/2019. FINDINGS: Lung bases are clear. There is cardiomegaly with vascular congestion. Mild atelectatic changes in t he right lung base. Liver, spleen, and pancreas unremarkable. Stomach mildly distended. The gallbladder is distended and there are at least 2 radiopaque gallstones in the neck of the gallbl adder, unchanged in appearance from the recent exam. Adrenal glands are normal. Review of the kidneys shows mild right hydronephrosis and mild prominence of the right ureter. A christal culus in the distal right ureter is again identified unchanged in position and size when compared to 08/24/2019. This ureteral calculus measures approximately 5 mm axial dimension x approximately 8-9 mm craniocaudal dimension. The urinary bladder is contracted and not well evaluated. The prostate is e nlarged and heterogeneous and stable in appearance. There are fluid-filled dilated loops of small bowel. There is abnormal density and inflammatory change seen involving the terminal ileum and cecum at the ileocecal valve. This density and inflammatory stranding is more prominent on today's study. There is no free fluid. There is no evidence of abscess or fluid collection. Neoplasm at the ileocecal va lve should be excluded. The abdominal aorta shows atherosclerotic calcification without aneurysm. No adenopathy or mass. IMPRESSION: 1. There are contrast-filled dilated loops of small bowel. Contrast does pass into the colon; howev er, the dilated loops of small bowel indicate a high-grade partial small bowel obstruction. There is abnormal soft tissue density at the ileocecal valve involving the terminal ileum and cecum. Neoplas m or inflammatory process at this site should be excluded. Small bowel obstruction related to this s ite is assumed. 2. Calculus in the distal right ureter is again noted as described above. 3. Dilated gallbladder with Cholelithiasis again noted as described. POS: [facility]
--- NOTE | 2019-09-11 14:44 | PDOC.HOSPP ---
- Subjective Encounter Date: 09/11/19 Encounter Time: 09:50 Subjective: at bedside, NGT with dark green drain fluid [so far about 400ml in the container]. abd eam soft, distention. sutures on the lower abdomen looks good. - Objective Vital Signs & Weight: Vital Signs (12 hours) Temp Pulse Resp BP BP Pulse Ox 09/11/19 08:18 183/99 H 09/11/19 08:00 97 09/11/19 07:16 98.6 F 62 17 183/99 H 97 09/11/19 04:04 97.7 F 67 20 164/67 H 94 L Weight Admit Weight 226 lb 14.4 oz Weight 223 lb 15.834 oz Most Recent Monitor Data Heart Rate from ECG 116 NIBP 137/112 NIBP BP-Mean 120 Respiration from ECG 3 SpO2 97 I&O: 09/10/19 09/11/19 09/12/19 06:59 06:59 06:59 Intake Total 2286 2060 Output Total 700 600 Balance 1586 1460 Result Diagrams: 09/11/19 03:30 09/11/19 03:30 Additional Labs: Accuchecks 09/11/19 09/11/19 09/10/19 11:53 04:08 19:23 POC Glucose 190 H 187 H 205 H Hospitalist ROS - Medication Medications: Active Medications Generic Name Dose Route Start Last Admin Trade Name Freq PRN Reason Stop Dose Admin Aspirin 81 mg 08/30/19 09:00 09/11/19 08:18 Ecotrin PO 81 mg DAILY KATHYA Administration Carvedilol 6.25 mg 09/04/19 17:00 09/11/19 08:18 Coreg PO 6.25 mg BID-WM KATHYA Administration Furosemide 40 mg 08/29/19 09:00 09/11/19 08:18 Lasix SLOW IVP 40 mg DAILY KATHYA Administration Insulin Glargine 5 units/ 0.05 mls @ 0 mls/hr 09/04/19 09:00 09/11/19 08:19 Miscellaneous Medication SC 0.05 mls QAM KATHYA Administration Lactated Ringer's 1,000 mls @ 0 mls/hr 09/04/19 18:41 09/11/19 02:03 Lactated Ringer's IV 1,000 mls .Q0M KATHYA Administration KVO Sterile Water 200 ml/ Sodium 1,770.7021 mls @ 73.779 mls/hr 09/10/19 22:00 02:03 Acetate 40 meq/ Sodium IV 1,770.7021 mls Chloride 60 meq/ Potassium INF KATHYA Administration Chloride 80 meq/ Potassium Phosphate 30 mmol/ Calcium Gluconate 10 meq/ Magnesium Sulfate 10 meq/ Multivitamins 10 ml/ Chromium/Copper/ Manganese/Seleni/Zn 1 ml/ Insulin Human Regular 50 units / Amino Acids/ Dextrose/Water/ Fat Emulsion Intravenous Insulin Human Lispro 0 units 08/19/19 15:39 09/11/19 06:02 Humalog SC 2 unit .MODERATE SLIDING SC PRN Administration Moderate Correctional Scale Insulin Human Lispro 0 units 08/19/19 15:39 09/10/19 19:47 Humalog SC 2 units .BEDTIME SLIDING SC PRN Administration Bedtime Correctional Scale Metoclopramide HCl 10 mg 09/09/19 12:00 09/11/19 11:46 Reglan IVP 10 mg Q6HR KATHYA Administration Nitroglycerin 1 patch 08/26/19 09:00 09/11/19 08:19 Nitro-Dur 0.4mg/Hr Patch TD 1 patch DAILY KATHYA Administration Ondansetron HCl 4 mg 08/19/19 15:39 09/10/19 11:08 Zofran IVP 4 mg Q6H PRN Administration Nausea/Vomiting Pantoprazole Sodium 40 mg 08/28/19 09:00 09/11/19 08:20 Protonix IVP 40 mg DAILY KATHYA Administration Remove Nitro Patch 0 each 09/09/19 21:00 09/10/19 19:46 TD 1 each 2100 KATHYA Administration Rivaroxaban 20 mg 08/30/19 18:00 09/10/19 18:01 Xarelto PO 20 mg 1800 KATHYA Administration Sodium Chloride 10 ml 08/19/19 15:39 08/30/19 09:49 Flush - Normal Saline IVF 10 ml PRN PRN Administration Saline Flush - Exam General Appearance: awake alert, ill appearing Eye: PERRL, anicteric sclera ENT: normocephalic atraumatic Neck: supple Heart: RRR Respiratory: CTAB, normal chest expansion Gastrointestinal: soft, distended, diminished bowl sounds Gastrointestinal - other findings: sutures on the lower abd.. looks good. 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 Status: Chronic (5) DM type 2 (diabetes mellitus, type 2) Status: Chronic Qualifiers: Diabetes mellitus chcf insulin use: without buttermaker use Diabetes mellitus complication status: with neurologic complications Diabetes mellitus complication detail: with polyneuropathy Qualified Code(s): E11.42 - Type 2 diabetes mellitus with diabetic polyneuropathy (6) Dyslipidemia Code(s): E78.5 - HYPERLIPIDEMIA, UNSPECIFIED Status: Chronic (7) HTN (hypertension) Code(s): I10 - ESSENTIAL (PRIMARY) HYPERTENSION Status: Chronic Qualifiers: Hypertension type: essential hypertension Qualified Code(s): I10 - Essential (primary) hypertension (8) Obesity (BMI 30.0-34.9) Code(s): E66.9 - OBESITY, UNSPECIFIED Status: Chronic Persistent Postoperative ileus -persisting 14 days out. -NG tube in place and on suction. -General surgery following. - on bowel rest and TPN. Hypokalemia -replaced Atrial fibrillation -rate controlled on oral diltiazem and Coreg. -AC - Xarelto G ppx - protonix IV DVT ppx - xarelto CArdiac-PRTL.
[2019-09-11] MEDS ORDERED: Iopamidol-370 76% 500 ML 1 ML ONE (16:05)
[2019-09-11] MEDS: Rivaroxaban 10 MG TAB PO SCH (17:28)
--- NOTE | 2019-09-11 18:39 | PRG ---
DATE OF SERVICE: 09/11/2019 SUBJECTIVE: Mr. Werner remains in his bed on the medical floor. He is postoperative day #15 from a laparoscopic/open abdominal surgery for bowel obstruction by Dr. Castellon (on August 26). He remains on TPN. Yesterday, it was noted that he had a few bowel movements. I was hoping that his ileus had finally resolved. I therefore obtained a Gastrografin small-bowel follow-through. This unfortunately showed very slow, delayed passage of contrast, which by 4 hours had only traveled to about the midjejunum. There was contrast noted within the colon during that study, and there was also substantial amount of small-bowel dilatation still present. This was felt to potentially be consistent with a high-grade partial small-bowel obstruction in the distal ileum. For further clarification of this, I decided to obtain a CT scan which was obtained today. This shows substantial amount of contrast within the stomach and dilated loops of small bowel. There does appear to be a small decompressed segment of small bowel in the distal ileum and there is concern for a filling defect/mass within the cecum, potentially consistent with a neoplasm or inflammatory process. The patient is uncertain when he had his last colonoscopy and the is not present currently. Also, just this afternoon, the patient "sneezed" and his nasogastric tube came out. He requests that it not be replaced as the pain is "unbearable." OBJECTIVE: VITAL SIGNS: He is afebrile, pulse is 40 to 60, and blood pressure is 160/70. GENERAL: He is resting in bed comfortably. LUNGS: Clear to auscultation. ABDOMEN: More distended than typical. Bowel sounds are present, but very diminished and there is some slight tingling/tympany. Incisions remain well healed. Abdomen is nontender diffusely. LABORATORY DATA: His electrolytes are normal. Creatinine slightly up at 0.99. Blood sugars remain better controlled in the 180s to 190s since I increased the insulin in his TPN. CBC shows elevated white blood cell count of 13.2 with a hemoglobin of 13, platelet count is 304, and 12% bandemia. ASSESSMENT: The patient with persistent gastrointestinal problems. This had seemed like an ileus because of his complete absence of bowel sounds over the majority of this past week. However, there is concern regarding some degree of persistent partial small-bowel obstruction in the terminal ileum. There was also concern regarding a filling defect within the cecum. I spoke with Dr. Verduzco this evening and requested a colonoscopy to evaluate this. The patient may end up requiring more surgery to better clarify the problems in the terminal ileum. Unfortunately, 2 weeks out from surgery is not an ideal time to re-operate. Further decisions will be made following colonoscopy. Job ID: [id number]
[2019-09-11] MEDS: REMOVE NITRO PATCH TD SCH (20:38)
[2019-09-12] MEDS: Metoclopramide HCl 10 MG/2 ML VIAL IVP SCH ×5 (00:11→23:19)
[2019-09-12] MEDS: STERILE WATER IV SCH ×2 (00:43→23:12)
[2019-09-12] MEDS: [UNRECOGNIZED DRUG - OTHER] IV SCH ×2 (00:43→23:12)
[2019-09-12] MEDS: SODIUM ACETATE IV SCH ×2 (00:43→23:12)
[2019-09-12] MEDS: HumaLOG 300 UNITS/3 ML VIAL SC PRN ×2 (05:18→17:37)
[2019-09-12 05:39] LABS: #Basophils 0.1 thou/uL (0.0-0.2); #Eosinphils 0.5 thou/uL (0.0-0.7); #Lymphocytes 2.3 thou/uL (1.20-3.40); #Monocytes 1.2 thou/uL (0.11-0.59); #Neutrophils 7.5 thou/uL (1.40-6.50); %Basophils 0.7 % (0.0-1.0); %Eosinophils 4.7 % (0.0-10.0); %Lymphocytes 19.7 % (21.0-51.0); %Neutrophils 64.9 % (42.0-75.0); Hemoglobin 12.9 g/dL (14.0-18.0); Mean Corpuscular HGB CONC 33.1 g/dL (32.0-36.0); Mean Corpuscular Hemoglobin 30.4 pg (27.0-31.0); Mean Corpuscular Volume 91.8 fL (78.0-98.0); Mean Platelet Volume 9.5 fL (7.4-10.4); Platelet Count 290 thou/uL (130-400); RBC Distribution Width 12.8 % (11.5-14.5); Red Blood Cell (RBC) Count 4.24 mill/uL (4.70-6.10); White Blood Cell (WBC) Count 11.6 thou/uL (4.8-10.8)
[2019-09-12] MEDS: Insulin Glargine 5 UNITS in Pre-Filled Syringe 1 EACH SC SCH (09:14)
[2019-09-12] MEDS: Furosemide 40 MG/4 ML VIAL SLOW IVP SCH (09:14)
[2019-09-12] MEDS: Aspirin 81 mg Enteric Coated Tablet PO SCH (09:14)
[2019-09-12] MEDS: Carvedilol 6.25 MG TAB PO SCH ×2 (09:15→17:37)
[2019-09-12] MEDS: Pantoprazole 40 MG VIAL IVP SCH (09:15)
[2019-09-12] MEDS: Nitroglycerin 0.4mg/Hour PATCH TD SCH (09:15)
[2019-09-12] MEDS ORDERED: Succinylcholine Chloride 20 MG/ML 10 ml SYRINGE FS ONE (10:34)
[2019-09-12] MEDS ORDERED: Lidocaine 1% PF 5 ML VIAL ONE (10:34)
[2019-09-12] MEDS ORDERED: PROPOFOL 200 MG/20 ML VIAL ONE (10:34)
[2019-09-12] MEDS ORDERED: Rocuronium Bromide 10 MG/ML (10ML VIAL) ONE (10:34)
[2019-09-12] MEDS ORDERED: SUGAMMADEX SODIUM 200 MG/2 ML VIAL ONE (11:07)
[2019-09-12] MEDS ORDERED: Fentanyl 100 MCG/2 ML VIAL ONE (11:07)
--- NOTE | 2019-09-12 11:15 | RAD ---
ABDOMEN 1 VIEW: HISTORY: Small bowel obstruction, followup. FINDINGS/IMPRESSION: There is contrast in the colon and rectum. There is air in dilated loops of small bowel. POS: [facility]
--- NOTE | 2019-09-12 14:42 | PRG ---
DATE OF SERVICE: 09/12/2019 SUBJECTIVE: Mr. Werner is doing fairly well today. He did have a bowel movement. OBJECTIVE: VITAL SIGNS: Temperature 97.8 degrees, pulse 62, and blood pressure 135/84. LUNGS: Clear to auscultation. CARDIAC: Regular rate and rhythm. ABDOMEN: Protuberant, soft, and mildly tympanitic. Minimal bowel sounds. LABORATORY DATA: White count 11 and hemoglobin 12. Basic metabolic profile unremarkable. Glucose 190 to 185. Events over the last few days that I have been off have been reviewed. Images; small-bowel follow-through and CAT scan reviewed. I have discussed with Dr. Vital, who is covering for me. I have discussed with Dr. Geovanni Verduzco this morning that since morning visit with the patient, the patient has had undergone a colonoscopy. I reviewed the images in the endo suite with Dr. Geovanni Verduzco. ASSESSMENT AND PLAN: Postoperative ileus. Dr. Verduzco was happy to cannulate the terminal ileum. There were some changes in the cecum and terminal ileum consistent with the patient's recent surgery, but no obstructive process. The patient seems to have an ileus. At this point, I think he would best be served by continued observation and time, TPN, supportive care. I would add Reglan elixir to his regimen. Continue therapy. I have discussed with the patient's , who is in agreement. Job ID: [id number]
--- NOTE | 2019-09-12 16:28 | PDOC.HOSPP ---
- Subjective Encounter Date: 09/12/19 Encounter Time: 13:40 Subjective: pt had cscope and no aucte abnormality, s/p polpectomy adn seen some changes in terminal ileum and caecum c/s post-op sux changes. pt feels throat sore. at bedside. d/w her the current care plan. - Objective Vital Signs & Weight: Vital Signs (12 hours) Temp Pulse Resp BP BP Pulse Ox 09/12/19 13:15 97.8 F 62 16 135/84 94 L 09/12/19 09:15 144/83 H 09/12/19 07:49 98.1 F 71 18 144/83 H 95 Weight Admit Weight 226 lb 14.4 oz Weight 223 lb 15.834 oz Most Recent Monitor Data Heart Rate from ECG 116 NIBP 137/112 NIBP BP-Mean 120 Respiration from ECG 3 SpO2 97 I&O: 09/11/19 09/12/19 09/13/19 06:59 06:59 06:59 Intake Total 2060 2472 Output Total 600 500 Balance 1460 1972 Result Diagrams: 09/12/19 05:15 09/11/19 03:30 Additional Labs: Accuchecks 09/12/19 09/11/19 09/11/19 05:21 20:01 16:03 POC Glucose 184 H 185 H 194 H Hospitalist ROS - Medication Medications: Active Medications Generic Name Dose Route Start Last Admin Trade Name Freq PRN Reason Stop Dose Admin Aspirin 81 mg 08/30/19 09:00 09/12/19 09:14 Ecotrin PO 81 mg DAILY KATHYA Administration Carvedilol 6.25 mg 09/04/19 17:00 09/12/19 09:15 Coreg PO 6.25 mg BID-WM KATHYA Administration Furosemide 40 mg 08/29/19 09:00 09/12/19 09:14 Lasix SLOW IVP 40 mg DAILY KATHYA Administration Insulin Glargine 5 units/ 0.05 mls @ 0 mls/hr 09/04/19 09:00 09/12/19 09:14 Miscellaneous Medication SC 0.05 mls QAM KATHYA Administration Lactated Ringer's 1,000 mls @ 0 mls/hr 09/04/19 18:41 09/11/19 02:03 Lactated Ringer's IV 1,000 mls .Q0M KATHYA Administration KVO Sterile Water 200 ml/ Sodium 1,770.7021 mls @ 73.779 mls/hr 09/10/19 22:00 00:43 Acetate 40 meq/ Sodium IV 1,770.7021 mls Chloride 60 meq/ Potassium INF KATHYA Administration Chloride 80 meq/ Potassium Phosphate 30 mmol/ Calcium Gluconate 10 meq/ Magnesium Sulfate 10 meq/ Multivitamins 10 ml/ Chromium/Copper/ Manganese/Seleni/Zn 1 ml/ Insulin Human Regular 50 units / Amino Acids/ Dextrose/Water/ Fat Emulsion Intravenous Insulin Human Lispro 0 units 08/19/19 15:39 09/12/19 05:18 Humalog SC 2 unit .MODERATE SLIDING SC PRN Administration Moderate Correctional Scale Insulin Human Lispro 0 units 08/19/19 15:39 09/10/19 19:47 Humalog SC 2 units .BEDTIME SLIDING SC PRN Administration Bedtime Correctional Scale Metoclopramide HCl 10 mg 09/09/19 12:00 09/12/19 13:33 Reglan IVP Not Given Q6HR KATHYA Nitroglycerin 1 patch 08/26/19 09:00 09/12/19 09:15 Nitro-Dur 0.4mg/Hr Patch TD 1 patch DAILY KATHYA Administration Ondansetron HCl 4 mg 08/19/19 15:39 09/10/19 11:08 Zofran IVP 4 mg Q6H PRN Administration Nausea/Vomiting Pantoprazole Sodium 40 mg 08/28/19 09:00 09/12/19 09:15 Protonix IVP 40 mg DAILY KATHYA Administration Remove Nitro Patch 0 each 09/09/19 21:00 09/11/19 20:38 TD 1 each 2100 KATHYA Administration Rivaroxaban 20 mg 08/30/19 18:00 09/11/19 17:28 Xarelto PO 20 mg 1800 KATHYA Administration Sodium Chloride 10 ml 08/19/19 15:39 08/30/19 09:49 Flush - Normal Saline IVF 10 ml PRN PRN Administration Saline Flush - Exam General Appearance: awake alert, ill appearing Eye: PERRL ENT: normocephalic atraumatic Neck: supple Heart: RRR Respiratory: CTAB Gastrointestinal: distended, diminished bowl sounds Neurological: no focal deficits Psychiatric: A&O x 3 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(s): Z79.01 - CORRECTION (CURRENT) USE OF ANTICOAGULANTS Status: Chronic (5) DM type 2 (diabetes mellitus, type 2) Status: Chronic Qualifiers: Diabetes mellitus care home insulin use: without adjunct faculty for medical terminology use Diabetes mellitus complication status: with neurologic complications Diabetes mellitus complication detail: with polyneuropathy Qualified Code(s): E11.42 - Type 2 diabetes mellitus with diabetic polyneuropathy (6) Dyslipidemia Code(s): E78.5 - HYPERLIPIDEMIA, UNSPECIFIED Status: Chronic (7) HTN (hypertension) Code(s): I10 - ESSENTIAL (PRIMARY) HYPERTENSION Status: Chronic Qualifiers: Hypertension type: essential hypertension Qualified Code(s): I10 - Essential (primary) hypertension (8) Obesity (BMI 30.0-34.9) Code(s): E66.9 - OBESITY, UNSPECIFIED Status: Chronic Persistent Postoperative ileus -persisting 14 days out. -NG tube in place and on suction. -General surgery following. - on bowel rest and TPN. Hypokalemia -replaced Atrial fibrillation -rate controlled on oral diltiazem and Coreg. -AC - Xarelto th s/p cscope s/p polpectomy and some changes in terminal ileum and caecum c/w post-op sux changes. Post-op ileus -- cw TPN - - reglan elixir added. -cw other supportive measures -am labs ordered. G ppx - protonix IV DVT ppx - xarelto CArdiac-PRTL.
[2019-09-12] MEDS: Rivaroxaban 10 MG TAB PO SCH (17:37)
--- NOTE | 2019-09-12 18:47 | OP ---
DATE OF PROCEDURE: 09/12/2019 PROCEDURE PERFORMED: Colonoscopy with biopsy. PREOPERATIVE DIAGNOSIS: Abnormal CT scan of the colon showing a possible mass in the cecum. He has also had a prolonged ileus. DESCRIPTION OF PROCEDURE: He was sedated with general anesthesia. The rectal exam was performed and was normal. The colonoscope was advanced without difficulty to the terminal ileum. The procedure was done without a bowel prep; however, he has been n.p.o. for quite a while and on TPN and has had Gastrografin passed through. There was no solid stool left. However, there was adherent thin stool on the ronquillo of the colon. The mucosa of the terminal ileum was normal. The ileocecal valve was normal. Next to the ileocecal valve and the cecum, there was an area of protruding mucosa was edematous and had a shallow 7 mm ulceration over it. This might have been an area that was oversewn with the recent surgery. It does not appear to be obstructing and there are no signs of chronic colitis with it. There were linear shallow ulcerations throughout most of the descending colon consistent with ischemic colitis. Biopsies were obtained. The remainder of the colonic mucosa was unremarkable. Retroflexed views in the rectum were unremarkable. IMPRESSION: 1. Edematous bulbous mucosa in the cecum with shallow ulceration overlying which might have been a site that was oversewn with the recent surgery. This was biopsied. There were no signs of chronic colitis or neoplastic issue here. 2. Ischemic colitis of the descending colon with linear ulcerations throughout this area. 3. Otherwise normal colonoscopy. The bowel prep was not adequate for a routine screening. 4. The terminal ileum was normal. RECOMMENDATIONS: 1. Await histopathology. 2. An NG tube was replaced for now. Job ID: [id number]
[2019-09-12] MEDS: REMOVE NITRO PATCH TD SCH (21:17)
[2019-09-13] MEDS: HumaLOG 300 UNITS/3 ML VIAL SC PRN ×3 (05:37→17:33)
[2019-09-13] MEDS: Metoclopramide HCl 10 MG/2 ML VIAL IVP SCH ×4 (05:37→23:50)
[2019-09-13 05:58] LABS: #Basophils 0.1 thou/uL (0.0-0.2); #Eosinphils 0.6 thou/uL (0.0-0.7); #Lymphocytes 2.3 thou/uL (1.20-3.40); #Monocytes 1.2 thou/uL (0.11-0.59); %Basophils 0.6 % (0.0-1.0); %Eosinophils 4.9 % (0.0-10.0); %Monocytes 9.8 % (0.0-10.0); %Neutrophils 65.7 % (42.0-75.0); Hemoglobin 12.3 g/dL (14.0-18.0); Mean Corpuscular HGB CONC 33.4 g/dL (32.0-36.0); Mean Corpuscular Hemoglobin 30.6 pg (27.0-31.0); Mean Corpuscular Volume 91.6 fL (78.0-98.0); Mean Platelet Volume 9.4 fL (7.4-10.4); Platelet Count 256 thou/uL (130-400); RBC Distribution Width 12.7 % (11.5-14.5); Red Blood Cell (RBC) Count 4.02 mill/uL (4.70-6.10); White Blood Cell (WBC) Count 12.2 thou/uL (4.8-10.8)
[2019-09-13 06:16] LABS: Anion Gap 8 mmol/L (10-20); BUN (Urea Nitrogen) 31 mg/dL (8.4-25.7); Calc. Creatinine Clearance 112 mL/min (70-130); Calcium 8.7 mg/dL (7.8-10.44); Carbon Dioxide 32 mmol/L (23-31); Chloride 108 mmol/L (98-107); Estimated GFR-MDRD Greater than 90; Glucose 137 mg/dL (83-110); Sodium 144 mmol/L (136-145)
[2019-09-13] MEDS: Insulin Glargine 5 UNITS in Pre-Filled Syringe 1 EACH SC SCH (08:26)
[2019-09-13] MEDS: Aspirin 81 mg Enteric Coated Tablet PO SCH (08:27)
[2019-09-13] MEDS: Carvedilol 6.25 MG TAB PO SCH ×2 (08:27→17:23)
[2019-09-13] MEDS: Pantoprazole 40 MG VIAL IVP SCH (08:29)
[2019-09-13] MEDS: Furosemide 40 MG/4 ML VIAL SLOW IVP SCH (08:30)
[2019-09-13] MEDS: Nitroglycerin 0.4mg/Hour PATCH TD SCH (08:31)
[2019-09-13] MEDS ORDERED: Metoprolol Tartrate 5 MG/5 ML VIAL IVP PRN (11:12)
--- NOTE | 2019-09-13 12:33 | PRG ---
DATE OF SERVICE: 09/13/2019 SUBJECTIVE: Mr. Werner is awake and responsive. He has an NG tube in place. He has had no bowel movement today. He has no abdominal pain. OBJECTIVE: VITAL SIGNS: Temperature 97.8, pulse 75, and blood pressure 158/66. His NG tube put out 1000 mL. GENERAL: He is in no acute distress. LUNGS: Clear to auscultation bilaterally. HEART: Regular rate and rhythm. ABDOMEN: Soft, nontender, and nondistended. His bowel sounds are present. EXTREMITIES: No lower extremity edema. IMPRESSION: 1. Prolonged ileus. He is receiving TPN. 2. Ischemic colitis. He has obvious changes of ischemic colitis in his descending colon. Biopsies were obtained. This may be worsening his ileus, but overall it appeared to be more in the healing stage with only shallow ulcerations. Primary treatment is perfusion of his GI tract, which the TPN will help with to maintain oncotic pressure in his vascular system. RECOMMENDATIONS: 1. Continue TPN. 2. NG tube management will be deferred to General Surgery. 3. At this point, I think he will just require more time for his ileus to improve. Job ID: [id number]
--- NOTE | 2019-09-13 15:05 | PDOC.HOSPP ---
- Subjective Encounter Date: 09/13/19 Encounter Time: 11:40 Subjective: it appears NGT put out 100 ml this am. last even., it was re-iinserted. pt had cscope y'day and so no BM today. abdomen lot soft today than y'day. TPN running. at bedside.pt appears more comfortable today and smiling. - Objective Vital Signs & Weight: Vital Signs (12 hours) Temp Pulse Resp BP BP BP Pulse Ox 09/13/19 12:00 97.4 F L 73 20 127/61 97 09/13/19 08:27 158/66 H 09/13/19 08:25 158/66 H 09/13/19 07:28 97.8 F 75 20 172/81 H 98 09/13/19 04:09 97.5 F L 60 18 159/75 H 97 Weight Admit Weight 226 lb 14.4 oz Weight 223 lb 15.834 oz Most Recent Monitor Data Heart Rate from ECG 116 NIBP 137/112 NIBP BP-Mean 120 Respiration from ECG 3 SpO2 97 I&O: 09/12/19 09/13/19 09/14/19 06:59 06:59 06:59 Intake Total 2472 2592 Output Total 500 350 Balance 1972 2242 Result Diagrams: 09/13/19 05:47 09/13/19 05:47 Additional Labs: Accuchecks 09/13/19 09/13/19 09/12/19 11:47 04:22 19:41 POC Glucose 173 H 164 H 162 H 09/12/19 15:59 POC Glucose 181 H Hospitalist ROS - Medication Medications: Active Medications Generic Name Dose Route Start Last Admin Trade Name Lobo PRN Reason Stop Dose Admin Aspirin 81 mg 08/30/19 09:00 09/13/19 08:27 Ecotrin PO 81 mg DAILY KATHYA Administration Carvedilol 6.25 mg 09/04/19 17:00 09/13/19 08:27 Coreg PO 6.25 mg BID-WM KATHYA Administration Furosemide 40 mg 08/29/19 09:00 09/13/19 08:30 Lasix SLOW IVP 40 mg DAILY KATHYA Administration Insulin Glargine 5 units/ 0.05 mls @ 0 mls/hr 09/04/19 09:00 09/13/19 08:26 Miscellaneous Medication SC 0.05 mls QAM KATHYA Administration Lactated Ringer's 1,000 mls @ 0 mls/hr 09/04/19 18:41 09/11/19 02:03 Lactated Ringer's IV 1,000 mls .Q0M KATHYA Administration KVO Sterile Water 200 ml/ Sodium 1,770.7021 mls @ 73.779 mls/hr 09/10/19 22:00 23:12 Acetate 40 meq/ Sodium IV 1,770.7021 mls Chloride 60 meq/ Potassium INF KATHYA Administration Chloride 80 meq/ Potassium Phosphate 30 mmol/ Calcium Gluconate 10 meq/ Magnesium Sulfate 10 meq/ Multivitamins 10 ml/ Chromium/Copper/ Manganese/Seleni/Zn 1 ml/ Insulin Human Regular 50 units / Amino Acids/ Dextrose/Water/ Fat Emulsion Intravenous Insulin Human Lispro 0 units 08/19/19 15:39 09/13/19 11:59 Humalog SC 2 unit .MODERATE SLIDING SC PRN Administration Moderate Correctional Scale Insulin Human Lispro 0 units 08/19/19 15:39 09/10/19 19:47 Humalog SC 2 units .BEDTIME SLIDING SC PRN Administration Bedtime Correctional Scale Metoclopramide HCl 10 mg 09/09/19 12:00 09/13/19 11:54 Reglan IVP 10 mg Q6HR KATHYA Administration Nitroglycerin 1 patch 08/26/19 09:00 09/13/19 08:31 Nitro-Dur 0.4mg/Hr Patch TD 1 patch DAILY KATHYA Administration Ondansetron HCl 4 mg 08/19/19 15:39 09/10/19 11:08 Zofran IVP 4 mg Q6H PRN Administration Nausea/Vomiting Pantoprazole Sodium 40 mg 08/28/19 09:00 09/13/19 08:29 Protonix IVP 40 mg DAILY KATHYA Administration Remove Nitro Patch 0 each 09/09/19 21:00 09/12/19 21:17 TD Not Given 2100 KATHYA Rivaroxaban 20 mg 08/30/19 18:00 09/12/19 17:37 Xarelto PO 20 mg 1800 KATHYA Administration Sodium Chloride 10 ml 08/19/19 15:39 08/30/19 09:49 Flush - Normal Saline IVF 10 ml PRN PRN Administration Saline Flush - Exam General Appearance: NAD, awake alert, ill appearing Eye: PERRL ENT: normocephalic atraumatic Neck: supple Heart: RRR Respiratory: CTAB, normal chest expansion Gastrointestinal: soft, normal bowel sounds Neurological: no focal deficits Psychiatric: A&O x 3 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(s): Z79.01 - IMMUNOLOGIST (CURRENT) USE OF ANTICOAGULANTS Status: Chronic (5) DM type 2 (diabetes mellitus, type 2) Status: Chronic Qualifiers: Diabetes mellitus halfway insulin use: without halfway use Diabetes mellitus complication status: with neurologic complications Diabetes mellitus complication detail: with polyneuropathy Qualified Code(s): E11.42 - Type 2 diabetes mellitus with diabetic polyneuropathy (6) Dyslipidemia Code(s): E78.5 - HYPERLIPIDEMIA, UNSPECIFIED Status: Chronic (7) HTN (hypertension) Code(s): I10 - ESSENTIAL (PRIMARY) HYPERTENSION Status: Chronic Qualifiers: Hypertension type: essential hypertension Qualified Code(s): I10 - Essential (primary) hypertension (8) Obesity (BMI 30.0-34.9) Code(s): E66.9 - OBESITY, UNSPECIFIED Status: Chronic Persistent Postoperative ileus -persisting 14 days out. -NG tube in place and on suction. -General surgery following. - on bowel rest and TPN. Hypokalemia -replaced Atrial fibrillation -rate controlled on oral diltiazem and Coreg. -AC - Xarelto s/p cscope s/p polpectomy and some changes in terminal ileum and caecum c/w post-op sux changes. Post-op ileus -- cw TPN - - reglan elixir added. -cw other supportive measures - NGT putting out less drain -- 100 ml this am --for 12 hour shift of overnight. G ppx - protonix IV DVT ppx - xarelto CArdiac-PRTL.
[2019-09-13] MEDS: Rivaroxaban 10 MG TAB PO SCH (17:23)
--- NOTE | 2019-09-13 20:04 | PRG ---
DATE OF SERVICE: 09/13/2019 SUBJECTIVE: Andrae Werner is doing well today. Colonoscopy results noted by Dr. Verduzco yesterday. No obstruction. NG tube placed. OBJECTIVE: VITAL SIGNS: Temperature 98.3 degrees, heart rate 64, blood pressure 152/83. The patient did have a bowel movement yesterday, but none today. Gastric drainage 350 mL for 24 hours. LUNGS: Clear to auscultation. CARDIAC: Regular rate and rhythm without murmur or gallop. ABDOMEN: Protuberant, soft, and nontender. Well-healed incision, infraumbilical, nontender. Occasional rare bowel sounds. LABORATORY DATA: White count 12, hemoglobin 12. Basic metabolic profile, essentially normal. Chloride 108, carbon dioxide 32, glucose is 160 to 180. ASSESSMENT AND PLAN: Prolonged ileus. Continue NG tube and n.p.o. We would plan to check abdominal x-rays on Sunday morning. Continue current regimen of TPN and NG tube. If NG tube falls out, I would leave it out. I would not replace it right away, but we will leave it in at this time. Job ID: [id number]
[2019-09-13] MEDS: REMOVE NITRO PATCH TD SCH (20:55)
[2019-09-13] MEDS: STERILE WATER IV SCH (22:04)
[2019-09-13] MEDS: [UNRECOGNIZED DRUG - OTHER] IV SCH (22:04)
[2019-09-13] MEDS: SODIUM ACETATE IV SCH (22:04)
[2019-09-13] MEDS: Lactated Ringer's 1,000 ML IV SCH (22:17)
[2019-09-14] MEDS: Metoclopramide HCl 10 MG/2 ML VIAL IVP SCH ×4 (05:16→23:00)
[2019-09-14 05:36] LABS: #Basophils 0.1 thou/uL (0.0-0.2); #Eosinphils 0.5 thou/uL (0.0-0.7); #Lymphocytes 2.3 thou/uL (1.20-3.40); #Monocytes 1.1 thou/uL (0.11-0.59); #Neutrophils 7.7 thou/uL (1.40-6.50); %Eosinophils 4.2 % (0.0-10.0); %Lymphocytes 19.9 % (21.0-51.0); %Monocytes 9.3 % (0.0-10.0); %Neutrophils 65.6 % (42.0-75.0); Hemoglobin 12.4 g/dL (14.0-18.0); Mean Corpuscular HGB CONC 33.3 g/dL (32.0-36.0); Mean Corpuscular Hemoglobin 30.8 pg (27.0-31.0); Mean Corpuscular Volume 92.4 fL (78.0-98.0); Mean Platelet Volume 9.7 fL (7.4-10.4); Platelet Count 244 thou/uL (130-400); RBC Distribution Width 12.5 % (11.5-14.5); Red Blood Cell (RBC) Count 4.03 mill/uL (4.70-6.10); White Blood Cell (WBC) Count 11.7 thou/uL (4.8-10.8)
[2019-09-14 05:52] LABS: Anion Gap 11 mmol/L (10-20); BUN (Urea Nitrogen) 31 mg/dL (8.4-25.7); Calc. Creatinine Clearance 113 mL/min (70-130); Calcium 8.8 mg/dL (7.8-10.44); Carbon Dioxide 29 mmol/L (23-31); Chloride 109 mmol/L (98-107); Estimated GFR-MDRD Greater than 90; Glucose 150 mg/dL (83-110); Potassium 4.1 mmol/L (3.5-5.1); Sodium 145 mmol/L (136-145)
[2019-09-14] MEDS: Aspirin 81 mg Enteric Coated Tablet PO SCH (08:43)
[2019-09-14] MEDS: Carvedilol 6.25 MG TAB PO SCH ×2 (08:43→17:19)
[2019-09-14] MEDS: Pantoprazole 40 MG VIAL IVP SCH (08:44)
[2019-09-14] MEDS: Nitroglycerin 0.4mg/Hour PATCH TD SCH (08:44)
[2019-09-14] MEDS: Furosemide 40 MG/4 ML VIAL SLOW IVP SCH (08:44)
[2019-09-14] MEDS: Insulin Glargine 5 UNITS in Pre-Filled Syringe 1 EACH SC SCH (09:05)
[2019-09-14] MEDS: HumaLOG 300 UNITS/3 ML VIAL SC PRN ×2 (12:04→17:20)
--- NOTE | 2019-09-14 14:49 | PRG ---
DATE OF SERVICE: 09/14/2019 SUBJECTIVE: Mr. Werner has no acute complaints. OBJECTIVE: VITAL SIGNS: Temperature 98.2, pulse 71, blood pressure 148/62. GENERAL: He has an NG tube in place to suction. LUNGS: Clear to auscultation bilaterally. HEART: Regular rate and rhythm without murmur. ABDOMEN: Soft, nontender, and nondistended. Bowel sounds are present. EXTREMITIES: No lower extremity edema. Output from his NG tube was 270 mL recorded over the last 24 hours. LABORATORY DATA: White blood cell count 11.7, hemoglobin is 12.4, and creatinine 0.81. IMPRESSION: 1. Prolonged ileus. He remains on TPN. NG tube has been replaced and his output started to look clear. 2. Ischemic colitis of the descending colon. RECOMMENDATIONS: 1. We will continue TPN. 2. NG tube is in place to low intermittent suction and is being managed by General Surgery. Job ID: [id number]
--- NOTE | 2019-09-14 14:55 | PRG ---
DATE OF SERVICE: 09/14/2019 SUBJECTIVE: Andrae Werner is doing well today. He has not had much out of his NG tube. He has passed flatus, but no bowel movement in the last 24 hours. Abdominal x-rays have been ordered today, but are pending. At this point, the patient seems to be doing better. OBJECTIVE: VITAL SIGNS: Temperature 98.2 degrees, blood pressure 148/62, respiratory rate 16. His NG tube has only put out 350 over 24 hours. LUNGS: His exam reveals lungs clear to auscultation. CARDIAC: Regular rate and rhythm. No murmur or gallop. ABDOMEN: Soft plus diminished bowel sounds. Nontender. Minimal tympany. EXTREMITIES: Unremarkable. ASSESSMENT AND PLAN: Prolonged ileus. Continue TPN, n.p.o. I have ordered abdominal x-rays today and these are pending. We would clamp his NG tube tonight and check residual in the morning to see how he tolerates this. Hopefully, this will resolve nonoperatively as he is about 2 weeks postoperative. Job ID: [id number]
--- NOTE | 2019-09-14 15:03 | PDOC.HOSPP ---
- Subjective Encounter Date: 09/14/19 Encounter Time: 12:50 Subjective: at bedside. pt has NGT in place. appear comfortable. abd getting much better everyday, as it is soft - BS+Ve. - Objective Vital Signs & Weight: Vital Signs (12 hours) Temp Pulse Resp BP BP BP Pulse Ox 09/14/19 08:43 148/62 H 09/14/19 08:00 98 09/14/19 07:31 98.2 F 71 16 148/62 H 98 09/14/19 05:00 97.6 F 68 18 137/86 97 Weight Admit Weight 226 lb 14.4 oz Weight 223 lb 15.834 oz Most Recent Monitor Data Heart Rate from ECG 116 NIBP 137/112 NIBP BP-Mean 120 Respiration from ECG 3 SpO2 97 I&O: 09/13/19 09/14/19 09/15/19 06:59 06:59 06:59 Intake Total 2592 2452 Output Total 350 270 Balance 2242 2182 Result Diagrams: 09/14/19 05:10 09/14/19 05:10 Additional Labs: Accuchecks 09/13/19 16:29 POC Glucose 157 H Hospitalist ROS - Medication Medications: Active Medications Generic Name Dose Route Start Last Admin Trade Name Freq PRN Reason Stop Dose Admin Aspirin 81 mg 08/30/19 09:00 09/14/19 08:43 Ecotrin PO 81 mg DAILY KATHYA Administration Carvedilol 6.25 mg 09/04/19 17:00 09/14/19 08:43 Coreg PO 6.25 mg BID-WM KATHYA Administration Furosemide 40 mg 08/29/19 09:00 09/14/19 08:44 Lasix SLOW IVP 40 mg DAILY KATHYA Administration Insulin Glargine 5 units/ 0.05 mls @ 0 mls/hr 09/04/19 09:00 09/14/19 09:05 Miscellaneous Medication SC 0.05 mls QAM KATHYA Administration Lactated Ringer's 1,000 mls @ 0 mls/hr 09/04/19 18:41 09/13/19 22:17 Lactated Ringer's IV 1,000 mls .Q0M KATHYA Administration KVO Sterile Water 200 ml/ Sodium 1,770.7021 mls @ 73.779 mls/hr 09/10/19 22:00 22:04 Acetate 40 meq/ Sodium IV 1,770.7021 mls Chloride 60 meq/ Potassium INF KATHYA Administration Chloride 80 meq/ Potassium Phosphate 30 mmol/ Calcium Gluconate 10 meq/ Magnesium Sulfate 10 meq/ Multivitamins 10 ml/ Chromium/Copper/ Manganese/Seleni/Zn 1 ml/ Insulin Human Regular 50 units / Amino Acids/ Dextrose/Water/ Fat Emulsion Intravenous Insulin Human Lispro 0 units 08/19/19 15:39 09/14/19 12:04 Humalog SC 2 unit .MODERATE SLIDING SC PRN Administration Moderate Correctional Scale Insulin Human Lispro 0 units 08/19/19 15:39 09/10/19 19:47 Humalog SC 2 units .BEDTIME SLIDING SC PRN Administration Bedtime Correctional Scale Metoclopramide HCl 10 mg 09/09/19 12:00 09/14/19 12:00 Reglan IVP 10 mg Q6HR KATHYA Administration Nitroglycerin 1 patch 08/26/19 09:00 09/14/19 08:44 Nitro-Dur 0.4mg/Hr Patch TD 1 patch DAILY KATHYA Administration Ondansetron HCl 4 mg 08/19/19 15:39 09/10/19 11:08 Zofran IVP 4 mg Q6H PRN Administration Nausea/Vomiting Pantoprazole Sodium 40 mg 08/28/19 09:00 09/14/19 08:44 Protonix IVP 40 mg DAILY KATHYA Administration Remove Nitro Patch 0 each 09/09/19 21:00 09/13/19 20:55 TD Not Given 2100 KATHYA Rivaroxaban 20 mg 08/30/19 18:00 09/13/19 17:23 Xarelto PO 20 mg 1800 KATHYA Administration Sodium Chloride 10 ml 08/19/19 15:39 08/30/19 09:49 Flush - Normal Saline IVF 10 ml PRN PRN Administration Saline Flush - Exam General Appearance: NAD, awake alert Eye: PERRL ENT: normocephalic atraumatic Neck: supple Heart: RRR Respiratory: CTAB, normal chest expansion Gastrointestinal: soft, diminished bowl sounds Neurological: no focal deficits 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(s): Z79.01 - RETIREMENT (CURRENT) USE OF ANTICOAGULANTS Status: Chronic (5) DM type 2 (diabetes mellitus, type 2) Status: Chronic Qualifiers: Diabetes mellitus remote computer terminal operator insulin use: without remote computer terminal operator use Diabetes mellitus complication status: with neurologic complications Diabetes mellitus complication detail: with polyneuropathy Qualified Code(s): E11.42 - Type 2 diabetes mellitus with diabetic polyneuropathy (6) Dyslipidemia Code(s): E78.5 - HYPERLIPIDEMIA, UNSPECIFIED Status: Chronic (7) HTN (hypertension) Code(s): I10 - ESSENTIAL (PRIMARY) HYPERTENSION Status: Chronic Qualifiers: Hypertension type: essential hypertension Qualified Code(s): I10 - Essential (primary) hypertension (8) Obesity (BMI 30.0-34.9) Code(s): E66.9 - OBESITY, UNSPECIFIED Status: Chronic Persistent Postoperative ileus -persisting 14 days out. -NG tube in place and on suction. -General surgery following. - on bowel rest and TPN. Hypokalemia -replaced Atrial fibrillation -rate controlled on oral diltiazem and Coreg. -AC - Xarelto s/p cscope on 26th s/p polpectomy and some changes in terminal ileum and caecum c/w post-op sux changes. Post-op ileus -- cw TPN - - reglan elixir added. -cw other supportive measures - NGT putting out less drain -- 100 ml this am --for 12 hour shift of overnight. G ppx - protonix IV DVT ppx - xarelto CArdiac-PRTL.
--- NOTE | 2019-09-14 16:52 | RAD ---
ABDOMINAL TWO VIEWS CHEST ONE VIEW: History: Ileus follow up. Comparison: 09-06-2019 FINDINGS: Upright shows NG tube in place. Central line is noted. Mild vascular engorgement. Images of the abdomen show dilated loops of small bowel. Contrast is seen in the decompressed colon. The degree of small bowel dilatation is most consistent with small bowel obstruction. POS: AGW
[2019-09-14] MEDS: Rivaroxaban 10 MG TAB PO SCH (17:18)
[2019-09-14] MEDS: REMOVE NITRO PATCH TD SCH (21:06)
[2019-09-14] MEDS: [UNRECOGNIZED DRUG - OTHER] IV SCH (22:33)
[2019-09-14] MEDS: STERILE WATER IV SCH (22:33)
[2019-09-14] MEDS: SODIUM ACETATE IV SCH (22:33)
[2019-09-14] MEDS: Lactated Ringer's 1,000 ML IV SCH (23:00)
[2019-09-15] MEDS: Metoclopramide HCl 10 MG/2 ML VIAL IVP SCH ×2 (05:10→09:14)
[2019-09-15 05:22] LABS: #Basophils 0.1 thou/uL (0.0-0.2); #Eosinphils 0.4 thou/uL (0.0-0.7); #Lymphocytes 2.4 thou/uL (1.20-3.40); #Monocytes 0.9 thou/uL (0.11-0.59); %Basophils 0.9 % (0.0-1.0); %Eosinophils 4.1 % (0.0-10.0); %Lymphocytes 21.9 % (21.0-51.0); %Monocytes 8.6 % (0.0-10.0); %Neutrophils 64.5 % (42.0-75.0); Hemoglobin 11.8 g/dL (14.0-18.0); Mean Corpuscular HGB CONC 32.5 g/dL (32.0-36.0); Mean Corpuscular Volume 92.3 fL (78.0-98.0); Platelet Count 245 thou/uL (130-400); RBC Distribution Width 12.8 % (11.5-14.5); Red Blood Cell (RBC) Count 3.95 mill/uL (4.70-6.10); White Blood Cell (WBC) Count 10.8 thou/uL (4.8-10.8)
[2019-09-15 05:41] LABS: Anion Gap 11 mmol/L (10-20); BUN (Urea Nitrogen) 33 mg/dL (8.4-25.7); Calc. Creatinine Clearance 116 mL/min (70-130); Calcium 8.7 mg/dL (7.8-10.44); Carbon Dioxide 29 mmol/L (23-31); Chloride 108 mmol/L (98-107); Estimated GFR-MDRD Greater than 90; Glucose 161 mg/dL (83-110); Potassium 3.9 mmol/L (3.5-5.1); Sodium 144 mmol/L (136-145)
[2019-09-15] MEDS: Furosemide 40 MG/4 ML VIAL SLOW IVP SCH (09:13)
[2019-09-15] MEDS: Carvedilol 6.25 MG TAB PO SCH ×2 (09:13→17:20)
[2019-09-15] MEDS: Aspirin 81 mg Enteric Coated Tablet PO SCH (09:13)
[2019-09-15] MEDS: Nitroglycerin 0.4mg/Hour PATCH TD SCH (09:14)
[2019-09-15] MEDS: Pantoprazole 40 MG VIAL IVP SCH (09:17)
[2019-09-15] MEDS: Insulin Glargine 5 UNITS in Pre-Filled Syringe 1 EACH SC SCH (09:18)
--- NOTE | 2019-09-15 12:02 | PRG ---
DATE OF SERVICE: 09/15/2019 SUBJECTIVE: Mr. Werner had 700 mL out from his NG tube over the last 24 hours. He has no abdominal pain. No nausea. No bowel movements since the colonoscopy a couple of days ago. OBJECTIVE: VITAL SIGNS: Temperature is 97.9, blood pressure 148/62, pulse 56. GENERAL: He is in no acute distress. Awake and alert. His is at the bedside. LUNGS: Clear to auscultation bilaterally. HEART: Regular rate and rhythm without murmur. ABDOMEN: Soft, mildly distended. Bowel sounds are present. EXTREMITIES: Trace lower extremity edema. LABORATORY DATA: White blood cell count 10.8, hemoglobin 11.8, creatinine 0.79. IMPRESSION: 1. Small-bowel obstruction followed by prolonged postoperative ileus. We have done NG tube decompression for a couple of days again now and he is feeling better. Dr. Castellon has cleared him to have his NG tube removed today with a trial of ice chips. 2. Ischemic colitis of the descending colon. Primary treatment for this is to optimize perfusion, which will be achieved with the fluids and TPN, which he is receiving. The TPN will help with the oncotic pressures and improve perfusion. This actually appeared to be in the healing stage rather than acute stage, by that time I saw it with the endoscopy. Biopsies are pending, but I do not expect that they will globe changer. RECOMMENDATIONS: 1. Await histopathology. 2. Continue supportive care, on TPN, fluids, and metoclopramide. He is on anticoagulation as well. 3. I will sign off for now. Please call if GI can be of assistance. Job ID: [id number]
[2019-09-15] MEDS: HumaLOG 300 UNITS/3 ML VIAL SC PRN (13:21)
--- NOTE | 2019-09-15 13:45 | PRG ---
DATE OF SERVICE: 09/15/2019 SUBJECTIVE: Andrae Werner is doing well. He denies having any nausea or vomiting. His NG tube was clamped last night for 12 hours and he had zero residual this morning. He has passed flatus, but not had a bowel movement for 2 days. Abdominal x-ray yesterday revealed some air-fluid levels consistent with ileus. OBJECTIVE: VITAL SIGNS: Temperature 97.7 degrees and blood pressure 153/82. Urine output is adequate. LUNGS: Clear to auscultation. CARDIAC: Regular rate and rhythm without murmur or gallop. ABDOMEN: Protuberant abdomen at baseline, slightly tympanitic. LABORATORY DATA: White count 10 and hemoglobin 11.8. Basic metabolic profile normal. ASSESSMENT AND PLAN: Ileus with zero residual. I would take out the NG tube. Keep him on ice chips only. Repeat abdominal x-rays tomorrow and observe him. We will initiate Reglan to see if this will help. On exam, he has diminished bowel sounds, although a few are present. He still has a resolving ileus. Job ID: [id number]
--- NOTE | 2019-09-15 14:47 | PDOC.HOSPP ---
- Subjective Encounter Date: 09/15/19 Encounter Time: 11:30 Subjective: at bedside. Dr. Verduzco rounding. Ileus improving, no residual. BS less. abd soft. may not be able to visit him tomorrow. so i told her will update her and got her cell -- [phone] - Objective Vital Signs & Weight: Vital Signs (12 hours) Temp Pulse Resp BP BP Pulse Ox 09/15/19 11:55 97.7 F 66 16 153/82 H 99 09/15/19 09:13 148/62 H 09/15/19 07:16 97.9 F 56 L 15 155/76 H 97 09/15/19 03:14 95 Weight Admit Weight 226 lb 14.4 oz Weight 223 lb 15.834 oz Most Recent Monitor Data Heart Rate from ECG 116 NIBP 137/112 NIBP BP-Mean 120 Respiration from ECG 3 SpO2 97 I&O: 09/14/19 09/15/19 09/16/19 06:59 06:59 06:59 Intake Total 2452 2570 Output Total 270 700 Balance 2182 1870 Result Diagrams: 09/15/19 05:00 09/15/19 05:00 Additional Labs: Accuchecks 09/15/19 09/15/19 09/14/19 11:58 04:58 20:26 POC Glucose 161 H 151 H 166 H 09/14/19 09/14/19 09/14/19 15:50 11:39 03:44 POC Glucose 171 H 198 H 182 H 09/13/19 19:36 POC Glucose 136 H Hospitalist ROS - Medication Medications: Active Medications Generic Name Dose Route Start Last Admin Trade Name Henryq PRN Reason Stop Dose Admin Aspirin 81 mg 08/30/19 09:00 09/15/19 09:13 Ecotrin PO 81 mg DAILY KATHYA Administration Carvedilol 6.25 mg 09/04/19 17:00 09/15/19 09:13 Coreg PO 6.25 mg BID-WM KATHYA Administration Furosemide 40 mg 08/29/19 09:00 09/15/19 09:13 Lasix SLOW IVP 40 mg DAILY KATHYA Administration Insulin Glargine 5 units/ 0.05 mls @ 0 mls/hr 09/04/19 09:00 09/15/19 09:18 Miscellaneous Medication SC 0.05 mls QAM KATHYA Administration Lactated Ringer's 1,000 mls @ 0 mls/hr 09/04/19 18:41 09/14/19 23:00 Lactated Ringer's IV 1,000 mls .Q0M KATHYA Administration KVO Sterile Water 200 ml/ Sodium 1,770.7021 mls @ 73.779 mls/hr 09/10/19 22:00 22:33 Acetate 40 meq/ Sodium IV 1,770.7021 mls Chloride 60 meq/ Potassium INF KATHYA Administration Chloride 80 meq/ Potassium Phosphate 30 mmol/ Calcium Gluconate 10 meq/ Magnesium Sulfate 10 meq/ Multivitamins 10 ml/ Chromium/Copper/ Manganese/Seleni/Zn 1 ml/ Insulin Human Regular 50 units / Amino Acids/ Dextrose/Water/ Fat Emulsion Intravenous Insulin Human Lispro 0 units 08/19/19 15:39 09/15/19 13:21 Humalog SC 2 unit .MODERATE SLIDING SC PRN Administration Moderate Correctional Scale Insulin Human Lispro 0 units 08/19/19 15:39 09/10/19 19:47 Humalog SC 2 units .BEDTIME SLIDING SC PRN Administration Bedtime Correctional Scale Nitroglycerin 1 patch 08/26/19 09:00 09/15/19 09:14 Nitro-Dur 0.4mg/Hr Patch TD 1 patch DAILY KATHYA Administration Ondansetron HCl 4 mg 08/19/19 15:39 09/10/19 11:08 Zofran IVP 4 mg Q6H PRN Administration Nausea/Vomiting Pantoprazole Sodium 40 mg 08/28/19 09:00 09/14/19 08:44 Protonix IVP 40 mg DAILY KATHYA Administration Remove Nitro Patch 0 each 09/09/19 21:00 09/14/19 21:06 TD Not Given 2100 KATHYA Rivaroxaban 20 mg 08/30/19 18:00 09/14/19 17:18 Xarelto PO 20 mg 1800 KATHYA Administration Sodium Chloride 10 ml 08/19/19 15:39 08/30/19 09:49 Flush - Normal Saline IVF 10 ml PRN PRN Administration Saline Flush - Exam General Appearance: NAD, awake alert Eye: PERRL ENT: normocephalic atraumatic Neck: supple Heart: RRR Respiratory: CTAB, normal chest expansion Gastrointestinal: soft, distended, diminished bowl sounds Neurological: no focal deficits Psychiatric: A&O x 3 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(s): Z79.01 - SEAT COVERER (CURRENT) USE OF ANTICOAGULANTS Status: Chronic (5) DM type 2 (diabetes mellitus, type 2) Status: Chronic Qualifiers: Diabetes mellitus moth exterminator insulin use: without moth exterminator use Diabetes mellitus complication status: with neurologic complications Diabetes mellitus complication detail: with polyneuropathy Qualified Code(s): E11.42 - Type 2 diabetes mellitus with diabetic polyneuropathy (6) Dyslipidemia Code(s): E78.5 - HYPERLIPIDEMIA, UNSPECIFIED Status: Chronic (7) HTN (hypertension) Code(s): I10 - ESSENTIAL (PRIMARY) HYPERTENSION Status: Chronic Qualifiers: Hypertension type: essential hypertension Qualified Code(s): I10 - Essential (primary) hypertension (8) Obesity (BMI 30.0-34.9) Code(s): E66.9 - OBESITY, UNSPECIFIED Status: Chronic Persistent Postoperative ileus -persisting 14 days out. -NG tube in place and on suction. -General surgery following. - on bowel rest and TPN. Hypokalemia -replaced Atrial fibrillation -rate controlled on oral diltiazem and Coreg. -AC - Xarelto s/p cscope on s/p polpectomy and some changes in terminal ileum and caecum c/w post-op sux changes. Post-op ileus----------->resolving slowly. -- cw TPN - - reglan elixir added. -cw other supportive measures - NGT putting out less drain -- 100 ml this am --for 12 hour shift of overnight. G ppx - protonix IV DVT ppx - xarelto CArdiac-PRTL. NGT out ice chips will update -- [phone], as it appears visitors are not allowed starting tomorrow.
[2019-09-15] MEDS: Rivaroxaban 10 MG TAB PO SCH (17:19)
[2019-09-15] MEDS: Metoclopramide 10 MG/10 ML UDCUP PO SCH ×2 (17:23→22:31)
[2019-09-15] MEDS: REMOVE NITRO PATCH TD SCH (22:32)
[2019-09-15] MEDS: [UNRECOGNIZED DRUG - OTHER] IV SCH (23:14)
[2019-09-15] MEDS: STERILE WATER IV SCH (23:14)
[2019-09-15] MEDS: SODIUM ACETATE IV SCH (23:14)
[2019-09-16] MEDS: HumaLOG 300 UNITS/3 ML VIAL SC PRN ×2 (05:51→17:22)
[2019-09-16] MEDS: Carvedilol 6.25 MG TAB PO SCH ×2 (08:23→17:27)
[2019-09-16] MEDS: Aspirin 81 mg Enteric Coated Tablet PO SCH (08:23)
[2019-09-16] MEDS: Metoclopramide 10 MG/10 ML UDCUP PO SCH ×4 (08:23→20:10)
[2019-09-16] MEDS: Nitroglycerin 0.4mg/Hour PATCH TD SCH (08:24)
[2019-09-16] MEDS: Furosemide 40 MG/4 ML VIAL SLOW IVP SCH (08:24)
[2019-09-16] MEDS: Pantoprazole 40 MG VIAL IVP SCH (08:24)
[2019-09-16] MEDS: Insulin Glargine 5 UNITS in Pre-Filled Syringe 1 EACH SC SCH (09:10)
[2019-09-16 12:21] LABS: #Basophils 0.1 thou/uL (0.0-0.2); #Eosinphils 0.3 thou/uL (0.0-0.7); #Lymphocytes 2.3 thou/uL (1.20-3.40); #Neutrophils 6.8 thou/uL (1.40-6.50); %Eosinophils 3.3 % (0.0-10.0); %Lymphocytes 21.5 % (21.0-51.0); %Monocytes 9.6 % (0.0-10.0); %Neutrophils 64.6 % (42.0-75.0); Hemoglobin 12.9 g/dL (14.0-18.0); Mean Corpuscular HGB CONC 32.6 g/dL (32.0-36.0); Mean Corpuscular Hemoglobin 30.4 pg (27.0-31.0); Mean Corpuscular Volume 93.3 fL (78.0-98.0); Mean Platelet Volume 9.7 fL (7.4-10.4); Platelet Count 244 thou/uL (130-400); RBC Distribution Width 12.7 % (11.5-14.5); Red Blood Cell (RBC) Count 4.25 mill/uL (4.70-6.10); White Blood Cell (WBC) Count 10.5 thou/uL (4.8-10.8)
[2019-09-16 12:49] LABS: Anion Gap 11 mmol/L (10-20); BUN (Urea Nitrogen) 32 mg/dL (8.4-25.7); Calc. Creatinine Clearance 113 mL/min (70-130); Calcium 8.9 mg/dL (7.8-10.44); Carbon Dioxide 31 mmol/L (23-31); Chloride 105 mmol/L (98-107); Estimated GFR-MDRD Greater than 90; Glucose 123 mg/dL (83-110); Potassium 3.9 mmol/L (3.5-5.1); Sodium 143 mmol/L (136-145)
--- NOTE | 2019-09-16 14:47 | PDOC.HOSPP ---
- Subjective Encounter Date: 09/16/19 Encounter Time: 11:30 Subjective: pt says that he is ok, NG tube out and abd is quite soft. afebrile. - Objective Vital Signs & Weight: Vital Signs (12 hours) Temp Pulse Resp BP BP BP Pulse Ox 09/16/19 11:42 97.6 F 63 16 151/81 H 98 09/16/19 10:47 09/16/19 08:23 127/81 09/16/19 07:11 97.8 F 62 16 184/80 H 95 09/16/19 03:48 97.3 F L 52 L 20 151/80 H 100 Pulse Ox 09/16/19 11:42 09/16/19 10:47 94 L 09/16/19 08:23 09/16/19 07:11 09/16/19 03:48 Weight Admit Weight 226 lb 14.4 oz Weight 223 lb 15.834 oz Most Recent Monitor Data Heart Rate from ECG 116 NIBP 137/112 NIBP BP-Mean 120 Respiration from ECG 3 SpO2 97 I&O: 09/15/19 09/16/19 09/17/19 06:59 06:59 06:59 Intake Total 2570 2616 Output Total 700 Balance 1870 2616 Result Diagrams: 09/16/19 12:15 09/16/19 12:15 Additional Labs: Accuchecks 09/16/19 09/16/19 09/15/19 11:44 04:00 19:49 POC Glucose 143 H 153 H 151 H 09/15/19 16:06 POC Glucose 134 H Hospitalist ROS - Medication Medications: Active Medications Generic Name Dose Route Start Last Admin Trade Name Lobo PRN Reason Stop Dose Admin Aspirin 81 mg 08/30/19 09:00 09/16/19 08:23 Ecotrin PO 81 mg DAILY KATHYA Administration Carvedilol 6.25 mg 09/04/19 17:00 09/16/19 08:23 Coreg PO 6.25 mg BID-WM KATHYA Administration Furosemide 40 mg 08/29/19 09:00 09/16/19 08:24 Lasix SLOW IVP 40 mg DAILY KATHYA Administration Insulin Glargine 5 units/ 0.05 mls @ 0 mls/hr 09/04/19 09:00 09/16/19 09:10 Miscellaneous Medication SC 0.05 mls QAM KATHYA Administration Lactated Ringer's 1,000 mls @ 0 mls/hr 09/04/19 18:41 09/14/19 23:00 Lactated Ringer's IV 1,000 mls .Q0M KATHYA Administration KVO Sterile Water 200 ml/ Sodium 1,770.7021 mls @ 73.779 mls/hr 09/10/19 22:00 23:14 Acetate 40 meq/ Sodium IV 1,770.7021 mls Chloride 60 meq/ Potassium INF KATHYA Administration Chloride 80 meq/ Potassium Phosphate 30 mmol/ Calcium Gluconate 10 meq/ Magnesium Sulfate 10 meq/ Multivitamins 10 ml/ Chromium/Copper/ Manganese/Seleni/Zn 1 ml/ Insulin Human Regular 50 units / Amino Acids/ Dextrose/Water/ Fat Emulsion Intravenous Insulin Human Lispro 0 units 08/19/19 15:39 09/16/19 05:51 Humalog SC 2 unit .MODERATE SLIDING SC PRN Administration Moderate Correctional Scale Insulin Human Lispro 0 units 08/19/19 15:39 09/10/19 19:47 Humalog SC 2 units .BEDTIME SLIDING SC PRN Administration Bedtime Correctional Scale Metoclopramide HCl 10 mg 09/15/19 17:00 09/16/19 11:36 Reglan PO 10 mg ACHS KATHYA Administration Nitroglycerin 1 patch 08/26/19 09:00 09/16/19 08:24 Nitro-Dur 0.4mg/Hr Patch TD 1 patch DAILY KATHYA Administration Ondansetron HCl 4 mg 08/19/19 15:39 09/10/19 11:08 Zofran IVP 4 mg Q6H PRN Administration Nausea/Vomiting Pantoprazole Sodium 40 mg 08/28/19 09:00 09/16/19 08:24 Protonix IVP 40 mg DAILY KATHYA Administration Remove Nitro Patch 0 each 09/09/19 21:00 09/15/19 22:32 TD Not Given 2100 KATHYA Rivaroxaban 20 mg 08/30/19 18:00 09/15/19 17:19 Xarelto PO 20 mg 1800 KATHYA Administration Sodium Chloride 10 ml 08/19/19 15:39 08/30/19 09:49 Flush - Normal Saline IVF 10 ml PRN PRN Administration Saline Flush - Exam Eye: PERRL, anicteric sclera ENT: normocephalic atraumatic Neck: supple Heart: RRR Respiratory: CTAB, normal chest expansion Gastrointestinal: soft, normal bowel sounds Neurological: no focal deficits Psychiatric: A&O x 3 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(s): Z79.01 - APPRENTICE FUNERAL DIRECTOR (CURRENT) USE OF ANTICOAGULANTS Status: Chronic (5) DM type 2 (diabetes mellitus, type 2) Status: Chronic Qualifiers: Diabetes mellitus terminal system operator insulin use: without terminal system operator use Diabetes mellitus complication status: with neurologic complications Diabetes mellitus complication detail: with polyneuropathy Qualified Code(s): E11.42 - Type 2 diabetes mellitus with diabetic polyneuropathy (6) Dyslipidemia Code(s): E78.5 - HYPERLIPIDEMIA, UNSPECIFIED Status: Chronic (7) HTN (hypertension) Code(s): I10 - ESSENTIAL (PRIMARY) HYPERTENSION Status: Chronic Qualifiers: Hypertension type: essential hypertension Qualified Code(s): I10 - Essential (primary) hypertension (8) Obesity (BMI 30.0-34.9) Code(s): E66.9 - OBESITY, UNSPECIFIED Status: Chronic Persistent Postoperative ileus -persisting 14 days out. -NG tube in place and on suction. -General surgery following. - on bowel rest and TPN. Hypokalemia -replaced Atrial fibrillation -rate controlled on oral diltiazem and Coreg. -AC - Xarelto s/p cscope on s/p polpectomy and some changes in terminal ileum and caecum c/w post-op sux changes. Post-op ileus----------->resolving slowly. -- cw TPN - - reglan elixir added. -cw other supportive measures - NGT putting out less drain -- 100 ml this am --for 12 hour shift of overnight. G ppx - protonix IV DVT ppx - xarelto CArdiac-PRTL. NGT out ice chips will update as needed- [phone], as it appears visitors are not allowed from now on. Ptherapy consult.
[2019-09-16] MEDS: Lactated Ringer's 1,000 ML IV SCH (14:55)
[2019-09-16] MEDS: Rivaroxaban 10 MG TAB PO SCH (17:22)
--- NOTE | 2019-09-16 17:46 | PRG ---
DATE OF SERVICE: 09/16/2019 SUBJECTIVE: Andrae Werner today is doing well. He has been NG tube for 24 hours. 14-hour gas residual was zero. The patient reports passing flatus, but has not had a bowel movement. He is status post 08/27/2019 laparoscopy converted to infraumbilical incision laparotomy for a bowel obstruction with repair of several seromuscular tears at the ileocecal area. On 09/11, the patient had a colonoscopy where the scope cannulate the terminal ileum. Prior to that, a CAT scan revealed some abnormal areas in the cecum. These areas were probably related to his seromuscular sutures and inversion of mucosa. He is maintained on TPN. The patient is now 3 weeks postoperatively. Abdominal x-ray two days ago revealed air-fluid levels, dilated small bowel consistent with a bowel obstruction. There was contrast seen in the colon from prior study. He has had a paucity of bowel sounds today, but today his abdomen is baseline protuberant with tympany, increased bowel sounds and nontender. Wound looks good. OBJECTIVE: LUNGS: Clear to auscultation. CARDIAC: Regular rate and rhythm. LABORATORY DATA: I had stopped his laboratories daily, but that has been reordered. His white count is 10.5 and hemoglobin 12.9. Basic metabolic profile is normal. Glucose is 130 to 170. ASSESSMENT AND PLAN: The patient now is 3 weeks postoperative. We have considered him to have an ileus and awaiting for GI function. There are no acute findings in the abdominal cavity. Options would be to continue TPN and observation hoping he will resolve this and other consideration would be a laparotomy and ileocecectomy. We have been trying to avoid operation today. Another issue is the patient's mobility. He is mostly cooperative, but he has cognitive impairment with some degree of dementia. It would be beneficial for his to be here to help care for him and help with his mobility and help with his participation with therapy. So far, the patient has not been cooperative with therapy, but with the patient's , the patient would be cooperative I believe. I have written orders to allow patient's to attend the patient at bedside. We will continue TPN ice chips for now, wait for better bowel function checks, abdominal x-rays tomorrow, and discussed with the patient's consideration for continued TPN support and observation versus operative intervention. He is passing flatus indicative of resolving ileus or a high-grade bowel obstruction. Job ID: [id number]
[2019-09-16] MEDS: REMOVE NITRO PATCH TD SCH (22:21)
[2019-09-16] MEDS: SODIUM ACETATE IV SCH (23:14)
[2019-09-16] MEDS: [UNRECOGNIZED DRUG - OTHER] IV SCH (23:14)
[2019-09-16] MEDS: STERILE WATER IV SCH (23:14)
[2019-09-17 04:46] LABS: #Basophils 0.1 thou/uL (0.0-0.2); #Eosinphils 0.4 thou/uL (0.0-0.7); #Lymphocytes 2.5 thou/uL (1.20-3.40); #Monocytes 0.9 thou/uL (0.11-0.59); %Basophils 1.1 % (0.0-1.0); %Eosinophils 3.6 % (0.0-10.0); %Lymphocytes 25.4 % (21.0-51.0); %Monocytes 8.9 % (0.0-10.0); Hemoglobin 11.6 g/dL (14.0-18.0); Mean Corpuscular HGB CONC 32.4 g/dL (32.0-36.0); Mean Corpuscular Hemoglobin 30.1 pg (27.0-31.0); Mean Corpuscular Volume 92.7 fL (78.0-98.0); Platelet Count 214 thou/uL (130-400); RBC Distribution Width 12.7 % (11.5-14.5); Red Blood Cell (RBC) Count 3.86 mill/uL (4.70-6.10); White Blood Cell (WBC) Count 9.8 thou/uL (4.8-10.8)
[2019-09-17] MEDS: Metoclopramide 10 MG/10 ML UDCUP PO SCH ×4 (08:38→20:12)
[2019-09-17] MEDS: Aspirin 81 mg Enteric Coated Tablet PO SCH (08:42)
[2019-09-17] MEDS: Furosemide 40 MG/4 ML VIAL SLOW IVP SCH (08:43)
[2019-09-17] MEDS: Insulin Glargine 5 UNITS in Pre-Filled Syringe 1 EACH SC SCH (08:46)
[2019-09-17] MEDS: Nitroglycerin 0.4mg/Hour PATCH TD SCH (08:47)
[2019-09-17] MEDS: Pantoprazole 40 MG VIAL IVP SCH (08:49)
[2019-09-17] MEDS: Carvedilol 6.25 MG TAB PO SCH ×2 (09:03→17:20)
--- NOTE | 2019-09-17 11:07 | RAD ---
2 VIEW ABDOMEN SUPINE AND UPRIGHT VIEWS: Date: 09/17/2019 HISTORY: Ileus versus small bowel obstruction. Comparison made to films of 09/14/2019. FINDINGS: There are diffuse gas-filled dilated loops of small bowel. There is mild gaseous distention of the co temi. The left colon is decompressed and contrast is seen in a decompressed rectum. IMPRESSION: Gas-filled dilated loops of small bowel and mild gaseous distention of the colon suggests diffuse ile us. The degree of small bowel dilatation is more pronounced and small obstruction cannot be excluded. POS: AH
--- NOTE | 2019-09-17 15:03 | PDOC.HOSPP ---
- Subjective Encounter Date: 09/17/19 Encounter Time: 12:20 Subjective: pt doing well, able to participate w.. therapy, 3 BMs today, watery. at bedside. - Objective Vital Signs & Weight: Vital Signs (12 hours) Temp Pulse Resp BP Pulse Ox 09/17/19 08:27 92 L 09/17/19 07:09 98.0 F 65 20 140/81 92 L Weight Admit Weight 226 lb 14.4 oz Weight 223 lb 15.834 oz Most Recent Monitor Data Heart Rate from ECG 116 NIBP 137/112 NIBP BP-Mean 120 Respiration from ECG 3 SpO2 97 I&O: 09/16/19 09/17/19 09/18/19 06:59 06:59 06:59 Intake Total 2616 1237 Balance 2616 1237 Result Diagrams: 09/17/19 04:30 09/16/19 12:15 Additional Labs: Accuchecks 09/17/19 09/17/19 09/16/19 11:01 05:27 19:35 POC Glucose 117 H 136 H 148 H 09/16/19 15:23 POC Glucose 170 H Hospitalist ROS - Medication Medications: Active Medications Generic Name Dose Route Start Last Admin Trade Name Freq PRN Reason Stop Dose Admin Aspirin 81 mg 08/30/19 09:00 09/17/19 08:42 Ecotrin PO 81 mg DAILY KATHYA Administration Carvedilol 6.25 mg 09/04/19 17:00 09/17/19 09:03 Coreg PO Not Given BID-WM KATHYA Furosemide 40 mg 08/29/19 09:00 09/17/19 08:43 Lasix SLOW IVP 40 mg DAILY KATHYA Administration Insulin Glargine 5 units/ 0.05 mls @ 0 mls/hr 09/04/19 09:00 09/17/19 08:46 Miscellaneous Medication SC 0.05 mls QAM KATHYA Administration Lactated Ringer's 1,000 mls @ 0 mls/hr 09/04/19 18:41 09/16/19 14:55 Lactated Ringer's IV 1,000 mls .Q0M KATHYA Administration KVO Sterile Water 200 ml/ Sodium 1,770.7021 mls @ 73.779 mls/hr 09/10/19 22:00 23:14 Acetate 40 meq/ Sodium IV 1,770.7021 mls Chloride 60 meq/ Potassium INF KATHYA Administration Chloride 80 meq/ Potassium Phosphate 30 mmol/ Calcium Gluconate 10 meq/ Magnesium Sulfate 10 meq/ Multivitamins 10 ml/ Chromium/Copper/ Manganese/Seleni/Zn 1 ml/ Insulin Human Regular 50 units / Amino Acids/ Dextrose/Water/ Fat Emulsion Intravenous Insulin Human Lispro 0 units 08/19/19 15:39 09/16/19 17:22 Humalog SC 2 unit .MODERATE SLIDING SC PRN Administration Moderate Correctional Scale Insulin Human Lispro 0 units 08/19/19 15:39 09/10/19 19:47 Humalog SC 2 units .BEDTIME SLIDING SC PRN Administration Bedtime Correctional Scale Metoclopramide HCl 10 mg 09/15/19 17:00 09/17/19 11:36 Reglan PO 10 mg ACHS KATHYA Administration Nitroglycerin 1 patch 08/26/19 09:00 09/17/19 08:47 Nitro-Dur 0.4mg/Hr Patch TD 1 patch DAILY KATHYA Administration Ondansetron HCl 4 mg 08/19/19 15:39 09/10/19 11:08 Zofran IVP 4 mg Q6H PRN Administration Nausea/Vomiting Pantoprazole Sodium 40 mg 08/28/19 09:00 09/17/19 08:49 Protonix IVP 40 mg DAILY KATHYA Administration Remove Nitro Patch 0 each 09/09/19 21:00 09/16/19 22:21 TD Not Given 2100 KATHYA Rivaroxaban 20 mg 08/30/19 18:00 09/16/19 17:22 Xarelto PO 20 mg 1800 KATHYA Administration Sodium Chloride 10 ml 08/19/19 15:39 08/30/19 09:49 Flush - Normal Saline IVF 10 ml PRN PRN Administration Saline Flush - Exam General Appearance: NAD, awake alert Eye: PERRL ENT: normocephalic atraumatic Neck: supple Heart: RRR, normal peripheral pulses Respiratory: CTAB, normal chest expansion Gastrointestinal: soft, normal bowel sounds Neurological: no focal deficits 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(s): Z79.01 - USP (CURRENT) USE OF ANTICOAGULANTS Status: Chronic (5) DM type 2 (diabetes mellitus, type 2) Status: Chronic Qualifiers: Diabetes mellitus group home insulin use: without group home use Diabetes mellitus complication status: with neurologic complications Diabetes mellitus complication detail: with polyneuropathy Qualified Code(s): E11.42 - Type 2 diabetes mellitus with diabetic polyneuropathy (6) Dyslipidemia Code(s): E78.5 - HYPERLIPIDEMIA, UNSPECIFIED Status: Chronic (7) HTN (hypertension) Code(s): I10 - ESSENTIAL (PRIMARY) HYPERTENSION Status: Chronic Qualifiers: Hypertension type: essential hypertension Qualified Code(s): I10 - Essential (primary) hypertension (8) Obesity (BMI 30.0-34.9) Code(s): E66.9 - OBESITY, UNSPECIFIED Status: Chronic Persistent Postoperative ileus -persisting 14 days out. -NG tube in place and on suction. -General surgery following. - on bowel rest and TPN. Hypokalemia -replaced Atrial fibrillation -rate controlled on oral diltiazem and Coreg. -AC - Xarelto s/p cscope on s/p polpectomy and some changes in terminal ileum and caecum c/w post-op sux changes. Post-op ileus----------->resolving slowly. -- cw TPN - - reglan elixir added. -cw other supportive measures - NGT putting out less drain -- 100 ml this am --for 12 hour shift of overnight. G ppx - protonix IV DVT ppx - xarelto CArdiac-PRTL. NGT out ice chips will update as needed- [phone], as it appears visitors are not allowed from now on. Ptherapy consult. --1st sux note reviewed - 's visit to help w.. ongoing physical therapy Diarrhea - will monitor closely - Ileus improving - CW TPN. - full liquid diet started --today.
[2019-09-17] MEDS: Rivaroxaban 10 MG TAB PO SCH (17:19)
--- NOTE | 2019-09-17 18:03 | PRG ---
DATE OF SERVICE: 09/17/2019 SUBJECTIVE: Andrae Werner has not had any nausea or vomiting. He has passed flatus. He has had several bowel movements today. Abdominal x-rays reveal distended loops of small bowel, but in addition, he has more gas in his colon. He does have air-fluid levels. Abdomen is protuberant as baseline and slightly tympanitic, but soft and not tensed. White count 9.8, hemoglobin 11.6. Sodium 143, potassium 3.9, and BUN 32. ASSESSMENT AND PLAN: Ileus, hopefully resolving. He is on full liquids, we would continue that. He is on Reglan elixir before meals and at bedtime. The patient's him and with her presence, the patient is participating with therapy. The patient is hoping to go to rehab soon, but we would like his air-fluid levels to improve. It is possible that he could go to rehab later this week or next week. Continue efforts of feeding and observe at this point. The patient is not ready to go to rehab in the next 48 hours. Job ID: [id number]
[2019-09-17] MEDS: Ondansetron PF 4 MG/2 ML Vial IVP PRN (20:14)
[2019-09-17] MEDS: REMOVE NITRO PATCH TD SCH (20:21)
[2019-09-17] MEDS: Melatonin 3 MG TAB PO SCH (21:01)
[2019-09-17] MEDS: STERILE WATER IV SCH (22:18)
[2019-09-17] MEDS: SODIUM ACETATE IV SCH (22:18)
[2019-09-17] MEDS: [UNRECOGNIZED DRUG - OTHER] IV SCH (22:18)
[2019-09-18] MEDS: Metoclopramide 10 MG/10 ML UDCUP PO SCH ×3 (08:01→19:53)
[2019-09-18] MEDS: Carvedilol 6.25 MG TAB PO SCH ×2 (08:02→19:52)
[2019-09-18] MEDS: Nitroglycerin 0.4mg/Hour PATCH TD SCH (08:03)
[2019-09-18] MEDS: FLUoxetine HCl 20 MG CAP PO SCH (08:03)
[2019-09-18] MEDS: Furosemide 40 MG/4 ML VIAL SLOW IVP SCH (08:03)
[2019-09-18] MEDS: Aspirin 81 mg Enteric Coated Tablet PO SCH (08:03)
[2019-09-18] MEDS: Pantoprazole 40 MG VIAL IVP SCH (08:24)
[2019-09-18] MEDS: Insulin Glargine 5 UNITS in Pre-Filled Syringe 1 EACH SC SCH (09:07)
[2019-09-18 10:09] LABS: #Basophils 0.1 thou/uL (0.0-0.2); #Eosinphils 0.3 thou/uL (0.0-0.7); #Lymphocytes 1.7 thou/uL (1.20-3.40); #Monocytes 0.9 thou/uL (0.11-0.59); #Neutrophils 7.7 thou/uL (1.40-6.50); %Basophils 0.6 % (0.0-1.0); %Eosinophils 3.1 % (0.0-10.0); %Lymphocytes 15.8 % (21.0-51.0); %Monocytes 8.2 % (0.0-10.0); %Neutrophils 72.2 % (42.0-75.0); Hemoglobin 12.1 g/dL (14.0-18.0); Mean Corpuscular HGB CONC 33.2 g/dL (32.0-36.0); Mean Corpuscular Hemoglobin 30.8 pg (27.0-31.0); Mean Corpuscular Volume 92.9 fL (78.0-98.0); Mean Platelet Volume 10.2 fL (7.4-10.4); Platelet Count 217 thou/uL (130-400); RBC Distribution Width 12.9 % (11.5-14.5); Red Blood Cell (RBC) Count 3.93 mill/uL (4.70-6.10); White Blood Cell (WBC) Count 10.6 thou/uL (4.8-10.8)
[2019-09-18 10:32] LABS: Anion Gap 11 mmol/L (10-20); BUN (Urea Nitrogen) 32 mg/dL (8.4-25.7); Calc. Creatinine Clearance 101 mL/min (70-130); Calcium 8.1 mg/dL (7.8-10.44); Carbon Dioxide 25 mmol/L (23-31); Chloride 104 mmol/L (98-107); Estimated GFR-MDRD 81; Glucose 191 mg/dL (83-110); Potassium 3.4 mmol/L (3.5-5.1); Sodium 137 mmol/L (136-145)
[2019-09-18] MEDS: HumaLOG 300 UNITS/3 ML VIAL SC PRN (11:31)
[2019-09-18] MEDS ORDERED: Ondansetron PF 4 MG/2 ML Vial ONE (11:34)
[2019-09-18] MEDS ORDERED: PROPOFOL 200 MG/20 ML VIAL ONE (11:34)
[2019-09-18] MEDS ORDERED: PHENYLEPHRINE-NS 100 MCG/ML 10 ML SYRINGE ONE ×2 (11:34→18:21)
[2019-09-18] MEDS ORDERED: Lidocaine 1% PF 5 ML VIAL ONE (11:34)
[2019-09-18] MEDS ORDERED: EPHEDRINE 25 MG/5 ML SYRINGE ONE (11:34)
[2019-09-18] MEDS ORDERED: Succinylcholine Chloride 20 MG/ML 10 ml SYRINGE FS ONE (11:34)
[2019-09-18] MEDS ORDERED: Rocuronium Bromide 10 MG/ML (10ML VIAL) ONE (11:34)
[2019-09-18 11:42] LABS: ALT (SGPT) 149 U/L (8-55); AST (SGOT) 65 U/L (5-34); Alkaline Phosphatase 131 U/L (40-110); Anion Gap 13 mmol/L (10-20); BUN (Urea Nitrogen) 30 mg/dL (8.4-25.7); Bilirubin, Total 0.6 mg/dL (0.2-1.2); Calc. Creatinine Clearance 99 mL/min (70-130); Calcium 8.1 mg/dL (7.8-10.44); Carbon Dioxide 24 mmol/L (23-31); Chloride 106 mmol/L (98-107); Estimated GFR-MDRD 79; Globulin 3.6 g/dL (2.4-3.5); Glucose 177 mg/dL (83-110); Magnesium 1.8 mg/dL (1.6-2.6); Potassium 3.6 mmol/L (3.5-5.1); Protein, Total 6.6 g/dL (5.8-8.1); Sodium 139 mmol/L (136-145)
[2019-09-18] MEDS ORDERED: Meropenem 2 GM in Sodium Chloride 0.9% 100 ML IVPB SCH (14:30)
[2019-09-18] MEDS ORDERED: Lidocaine 1% w/Epinephrine 1:100K 20 ML VIAL ONE (15:01)
[2019-09-18] MEDS ORDERED: Bupivacaine PF 0.5% 30 ML VIAL ONE (15:01)
--- NOTE | 2019-09-18 15:19 | PDOC.HOSPP ---
- Subjective Encounter Date: 09/18/19 Encounter Time: 10:20 Subjective: pt is little lethargic today, abd quite distended. BM last night, none this am. at bedside. xray -diffuse ileus - Objective Vital Signs & Weight: Vital Signs (12 hours) Temp Pulse Resp BP Pulse Ox Pulse Ox Pulse Ox 09/18/19 11:10 88 L 96 09/18/19 07:38 98.0 F 73 20 127/83 94 L Weight Admit Weight 226 lb 14.4 oz Weight 223 lb 15.834 oz Most Recent Monitor Data Heart Rate from ECG 116 NIBP 137/112 NIBP BP-Mean 120 Respiration from ECG 3 SpO2 97 I&O: 09/17/19 09/18/19 09/19/19 06:59 06:59 06:59 Intake Total 1237 1690 Balance 1237 1690 Result Diagrams: 09/18/19 09:58 09/18/19 10:47 Additional Labs: Accuchecks 09/18/19 09/18/19 09/17/19 11:08 04:39 19:40 POC Glucose 173 H 189 H 113 H 09/17/19 16:19 POC Glucose 143 H Hospitalist ROS - Medication Medications: Active Medications Generic Name Dose Route Start Last Admin Trade Name Freq PRN Reason Stop Dose Admin Aspirin 81 mg 08/30/19 09:00 09/18/19 08:03 Ecotrin PO 81 mg DAILY KATHYA Administration Carvedilol 6.25 mg 09/04/19 17:00 09/18/19 08:02 Coreg PO 6.25 mg BID-WM KATHYA Administration Fluoxetine HCl 40 mg 09/18/19 09:00 09/18/19 08:03 Prozac PO 40 mg DAILY KATHYA Administration Furosemide 40 mg 08/29/19 09:00 09/18/19 08:03 Lasix SLOW IVP 40 mg DAILY KATHYA Administration Insulin Glargine 5 units/ 0.05 mls @ 0 mls/hr 09/04/19 09:00 09/18/19 09:07 Miscellaneous Medication SC 0.05 mls QAM KATHYA Administration Lactated Ringer's 1,000 mls @ 0 mls/hr 09/04/19 18:41 09/16/19 14:55 Lactated Ringer's IV 1,000 mls .Q0M KATHYA Administration KVO Sterile Water 200 ml/ Sodium 1,770.7021 mls @ 73.779 mls/hr 09/10/19 22:00 22:18 Acetate 40 meq/ Sodium IV 1,770.7021 mls Chloride 60 meq/ Potassium INF KATHYA Administration Chloride 80 meq/ Potassium Phosphate 30 mmol/ Calcium Gluconate 10 meq/ Magnesium Sulfate 10 meq/ Multivitamins 10 ml/ Chromium/Copper/ Manganese/Seleni/Zn 1 ml/ Insulin Human Regular 50 units / Amino Acids/ Dextrose/Water/ Fat Emulsion Intravenous Insulin Human Lispro 0 units 08/19/19 15:39 09/18/19 11:31 Humalog SC 2 unit .MODERATE SLIDING SC PRN Administration Moderate Correctional Scale Insulin Human Lispro 0 units 08/19/19 15:39 09/10/19 19:47 Humalog SC 2 units .BEDTIME SLIDING SC PRN Administration Bedtime Correctional Scale Melatonin 3 mg 09/17/19 21:00 09/17/19 21:01 Melatonin PO 3 mg HS KATHYA Administration Metoclopramide HCl 10 mg 09/15/19 17:00 09/18/19 11:30 Reglan PO 10 mg ACHS KATHYA Administration Nitroglycerin 1 patch 08/26/19 09:00 09/18/19 08:03 Nitro-Dur 0.4mg/Hr Patch TD 1 patch DAILY KATHYA Administration Ondansetron HCl 4 mg 08/19/19 15:39 09/17/19 20:14 Zofran IVP 4 mg Q6H PRN Administration Nausea/Vomiting Pantoprazole Sodium 40 mg 08/28/19 09:00 09/18/19 08:24 Protonix IVP 40 mg DAILY KATHYA Administration Remove Nitro Patch 0 each 09/09/19 21:00 09/17/19 20:21 TD Not Given 2100 KATHYA Sodium Chloride 10 ml 08/19/19 15:39 08/30/19 09:49 Flush - Normal Saline IVF 10 ml PRN PRN Administration Saline Flush - Exam Eye: PERRL ENT: normocephalic atraumatic Neck: supple Heart: RRR Respiratory: CTAB, normal chest expansion Gastrointestinal: soft, distended, diminished bowl sounds Neurological: no focal deficits 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(s): Z79.01 - AIR DISPATCHER (CURRENT) USE OF ANTICOAGULANTS Status: Chronic (5) DM type 2 (diabetes mellitus, type 2) Status: Chronic Qualifiers: Diabetes mellitus intermediate insulin use: without terminal clerk use Diabetes mellitus complication status: with neurologic complications Diabetes mellitus complication detail: with polyneuropathy Qualified Code(s): E11.42 - Type 2 diabetes mellitus with diabetic polyneuropathy (6) Dyslipidemia Code(s): E78.5 - HYPERLIPIDEMIA, UNSPECIFIED Status: Chronic (7) HTN (hypertension) Code(s): I10 - ESSENTIAL (PRIMARY) HYPERTENSION Status: Chronic Qualifiers: Hypertension type: essential hypertension Qualified Code(s): I10 - Essential (primary) hypertension (8) Obesity (BMI 30.0-34.9) Code(s): E66.9 - OBESITY, UNSPECIFIED Status: Chronic Persistent Postoperative ileus -persisting 14 days out. -NG tube in place and on suction. -General surgery following. - on bowel rest and TPN. Hypokalemia -replaced Atrial fibrillation -rate controlled on oral diltiazem and Coreg. -AC - Xarelto s/p cscope on s/p polpectomy and some changes in terminal ileum and caecum c/w post-op sux changes. Post-op ileus----------->resolving slowly. -- cw TPN - - reglan elixir added. -cw other supportive measures - NGT putting out less drain -- 100 ml this am --for 12 hour shift of overnight. G ppx - protonix IV DVT ppx - xarelto CArdiac-PRTL. NGT out ice chips will update as needed- [phone], as it appears visitors are not allowed from now on. Ptherapy consult. --1st sux note reviewed - 's visit to help w.. ongoing physical therapy Diarrhea - will monitor closely - Ileus improving - CW TPN. - full liquid diet started --today. 2nd xray - Diffuse ileus in small bowel and colon - getting CT abd to assess the extent of it and to r/o SBO and/orother abn... pt did had Bm last night. afebrile, no hgh wbcs - continue monitoring.
[2019-09-18] MEDS ORDERED: Fentanyl 250 MCG/5 ML VIAL ONE (15:31)
[2019-09-18] MEDS ORDERED: Albumin 5% 500 ML ONE (15:53)
[2019-09-18] MEDS ORDERED: Ventilator Sedation Protocol 1 EACH FS SCH (18:30)
--- NOTE | 2019-09-18 18:37 | PRG ---
DATE OF SERVICE: 09/18/2019 TIME SEEN: 1300 hours. SUBJECTIVE: Mr. Werner is doing well today. Vital signs are stable. He, however, is more distended, has not been hungry and has been nauseated. He has been asking for gas remedies. He has not had a bowel movement. He has passed some flatus. Abdominal x-rays yesterday revealed air-fluid levels and more small-bowel distention. OBJECTIVE: LUNGS: Clear to auscultation. CARDIAC: Regular rate and rhythm without murmur or gallop. ABDOMEN: Soft, distended, protuberant, tympanitic. Incision looks good. ASSESSMENT AND PLAN: Persistent bowel obstruction postoperative 3 weeks. We have tried nonoperative management, although he has passed some flatus. He has not had a bowel movement in 48 hours. He has a high-grade bowel obstruction by radiological assessment and clinical course. At this point, I would recommend laparotomy and the patient and his agree and will proceed tonight. They understand he will probably need a right colectomy as he has obstructive process in the terminal ileum and cecal area. Job ID: [id number]
[2019-09-18] MEDS: Albuterol Sulfate 2.5 mg/3 ml Neb NEB SCH ×2 (19:03→23:39)
[2019-09-18] MEDS ORDERED: Lorazepam 2 MG/ML VIAL SLOW IVP PRN (19:07)
[2019-09-18] MEDS ORDERED: fentaNYL Citrate/PF 2,000 MCG in Sodium Chloride 0.9% 60 ML IV SCH (19:07)
[2019-09-18] MEDS ORDERED: Propofol BOLUS 1,000 MG/100 ML VIAL IV PRN (19:07)
[2019-09-18] MEDS ORDERED: Morphine 2 MG/ML VIAL SLOW IVP PRN (19:07)
[2019-09-18] MEDS ORDERED: Fentanyl BOLUS 250 ML IVPB PRN (19:07)
[2019-09-18] MEDS ORDERED: DISCONTINUE PREVIOUS NARCOTIC PAIN MEDICATIONS AND BENZODIAZEPINES FS SCH (19:07)
--- NOTE | 2019-09-18 19:11 | OP ---
DATE OF PROCEDURE: 09/18/2019 PREOPERATIVE DIAGNOSIS: Small-bowel obstruction status post just over 3 weeks ago laparoscopy converted to laparotomy with adhesiolysis with persistent high-grade partial bowel obstruction secondary to adhesions. PROCEDURES PERFORMED: 1. Exploratory laparotomy. 2. Adhesiolysis for 1 hour. 3. Right colectomy with ileocolonic anastomosis, stapled. ANESTHESIA: General. ESTIMATED BLOOD LOSS: 175 mL. BLOOD TRANSFUSED: None. DESCRIPTION OF PROCEDURE: The patient was taken to the operating room where under general anesthesia, abdomen was prepared with ChloraPrep and draped in routine fashion. Incision was made through the old scar and carried cephalad inferiorly and through the skin and subcutaneous tissue down to the fascia, entered the abdominal cavity sharply. There was some adhesions to the abdominal cavity, taken down with sharp and blunt dissection. Once these were freed, there were extensive adhesions in the pelvis and the ileocecal area. Omental adhesions were taken down. Small bowel mobilized and decompressed, but in retrograde, decompressing the dilated small bowel in the stomach, evacuated with NG tube, which was palpated in proper position. The mesentery of the ileum was taken down initially with cautery and LigaSure, mobilizing the cecum, ascending colon, hepatic flexure, dividing the ileocolic vessels between clamps, ligated with 2-0 silk ties and mesentery divided with the LigaSure up to the proximal transverse colon, it was divided with a VLADIMIR stapler. The small bowel had been divided with a VLADIMIR stapler. Staple anastomosis was created with a staple technique using a 75 VLADIMIR, reinforcing the staple line with interrupted Lembert sutures of 3-0 silk and placed in omentum posteriorly and anteriorly, held in place with 3-0 silk and the mesentery defect closed with 3-0 silk. Abdominal cavity thoroughly irrigated, irrigant evacuated. Small bowel inspected from the ileocolic anastomosis to the ligament of Treitz, noted to be intact without violation. One single seromuscular tear of questionable significance was inverted with interrupted Lembert suture of 3-0 silk. Good hemostasis noted. Abdominal cavity thoroughly irrigated, irrigant evacuated and all instrument counts were correct and Seprafilm applied. Fascia approximated with continuous suture of #1 PDS. Skin with teja. Sterile dressing applied. Our gloves were changed prior to wound closure. Job ID: [id number]
[2019-09-18 19:23] LABS: Actual Bicarbonate (HCO3a) 22.3 mEq/L (22-28); Base Excess (BEa) -0.3 mEq/L (-2.0 to +3.0); CO2 Tension 30.2 mmHg (35.0-45.0); Calcium, Ionized (arterial) 1.08 mmol/L (1.12-1.30); Carboxyhemoglobin (COHb) 0.3 gm% (0.0-3.0); O2 Tension (PaO2), arterial 110.5 mmHg (> 70.0); Potassium - ABG Lab 3.54 mmol/L (3.70-5.30); pH, Arterial 7.49 (7.35-7.45)
[2019-09-18 19:24] LABS: Puncture Site LBA
--- NOTE | 2019-09-18 19:43 | RAD ---
XR Chest 1 View Portable History: Ventilated patient Comparison: Radiograph September 14, 2019 Findings: Endotracheal tube tip sits just below the clavicles. Enteric tube tip below diaphragm altho ugh out of field of view. Heart size is enlarged. No confluent airspace consolidation. Impression: Satisfactory position of endotracheal and enteric tubes.
[2019-09-18] MEDS: Lactated Ringer's 1,000 ML IV SCH ×2 (19:53)
[2019-09-18] MEDS: Propofol 1,000 MG/100 ML VIAL IV PRN (20:00)
[2019-09-18] MEDS: REMOVE NITRO PATCH TD SCH (21:24)
[2019-09-18] MEDS: Melatonin 3 MG TAB PO SCH (21:25)
[2019-09-18] MEDS: STERILE WATER IV SCH (22:21)
[2019-09-18] MEDS: SODIUM ACETATE IV SCH (22:21)
[2019-09-18] MEDS: [UNRECOGNIZED DRUG - OTHER] IV SCH (22:21)
[2019-09-18 23:18] LABS: Band 28 % (5-11); Hemoglobin 12.4 g/dL (14.0-18.0); Lymphocytes 11 % (21-51); MDiff Complete? YES; Mean Corpuscular HGB CONC 32.2 g/dL (32.0-36.0); Mean Corpuscular Hemoglobin 29.7 pg (27.0-31.0); Mean Corpuscular Volume 92.3 fL (78.0-98.0); Mean Platelet Volume 10.4 fL (7.4-10.4); Monocytes 4 % (0-10); Neutrophil 57 % (42-75); Platelet Count 242 thou/uL (130-400); RBC Distribution Width 12.9 % (11.5-14.5); Red Blood Cell (RBC) Count 4.16 mill/uL (4.70-6.10); White Blood Cell (WBC) Count 15.2 thou/uL (4.8-10.8)
[2019-09-19] MEDS: Propofol 1,000 MG/100 ML VIAL IV PRN (03:04)
[2019-09-19 03:59] LABS: #Lymphocytes 0.9 thou/uL (1.20-3.40); #Monocytes 0.6 thou/uL (0.11-0.59); #Neutrophils 11.1 thou/uL (1.40-6.50); %Eosinophils 0.2 % (0.0-10.0); %Lymphocytes 7.4 % (21.0-51.0); %Monocytes 4.7 % (0.0-10.0); %Neutrophils 87.7 % (42.0-75.0); Mean Corpuscular HGB CONC 33.4 g/dL (32.0-36.0); Mean Corpuscular Hemoglobin 30.8 pg (27.0-31.0); Mean Corpuscular Volume 92.2 fL (78.0-98.0); Mean Platelet Volume 11.5 fL (7.4-10.4); Platelet Count 182 thou/uL (130-400); RBC Distribution Width 12.8 % (11.5-14.5); White Blood Cell (WBC) Count 12.7 thou/uL (4.8-10.8)
[2019-09-19 04:23] LABS: ALT (SGPT) 98 U/L (8-55); AST (SGOT) 43 U/L (5-34); Albumin 2.9 g/dL (3.4-4.8); Alkaline Phosphatase 95 U/L (40-110); Anion Gap 10 mmol/L (10-20); BUN (Urea Nitrogen) 29 mg/dL (8.4-25.7); Bilirubin, Total 0.6 mg/dL (0.2-1.2); Calc. Creatinine Clearance 105 mL/min (70-130); Calcium 8.1 mg/dL (7.8-10.44); Carbon Dioxide 26 mmol/L (23-31); Chloride 106 mmol/L (98-107); Estimated GFR-MDRD 86; Globulin 2.8 g/dL (2.4-3.5); Glucose 298 mg/dL (83-110); Magnesium 1.6 mg/dL (1.6-2.6); Phosphorus 3.1 mg/dL (2.3-4.7); Potassium 3.8 mmol/L (3.5-5.1); Protein, Total 5.7 g/dL (5.8-8.1); Sodium 138 mmol/L (136-145)
[2019-09-19] MEDS: HumaLOG 300 UNITS/3 ML VIAL SC PRN ×4 (06:22→20:59)
[2019-09-19 07:01] LABS: Actual Bicarbonate (HCO3a) 21.3 mEq/L (22-28); Base Excess (BEa) -1.7 mEq/L (-2.0 to +3.0); CO2 Tension 30.7 mmHg (35.0-45.0); Calcium, Ionized (arterial) 1.14 mmol/L (1.12-1.30); Carboxyhemoglobin (COHb) 0.3 gm% (0.0-3.0); Hemoglobin (Hb) 12.3 g/dL (14.0-18.0); O2 Tension (PaO2), arterial 138.5 mmHg (> 70.0); Potassium - ABG Lab 4.05 mmol/L (3.70-5.30); pH, Arterial 7.46 (7.35-7.45)
[2019-09-19 07:46] LABS: Puncture Site RRAD
[2019-09-19] MEDS: Albuterol Sulfate 2.5 mg/3 ml Neb NEB SCH ×4 (07:46→23:45)
[2019-09-19 07:47] LABS: ALV-art Gradient 108.325 (0-20)
[2019-09-19] MEDS: Lactated Ringer's 1,000 ML IV SCH ×2 (08:30→19:30)
--- NOTE | 2019-09-19 09:50 | PRG ---
DATE OF SERVICE: 09/19/2019 SUBJECTIVE: Andrae Werner is in ICU after laparotomy, adhesiolysis, right colectomy, and anastomosis yesterday. His wound has been closed. It is closed with teja. He has an incisional wound VAC in place, which can be removed in 4 to 6 days. At that point, the wound can be left open. There are no [place] in the wound. The patient has TPN infusing. I did order 75 mL of LR postoperatively, but nursing overnight had TKO'd this. Orders were written to change this to 50 mL per hour. He is on the ventilator this morning, which has been slowly weaned. His blood gases looked good. Blood pressure 131/83, respiratory rate 17, heart rate 90. Overnight, his gastric output is 180 mL. Urine output 447 mL postoperatively. The patient was on Xarelto preoperatively. His hemoglobins have been checked and have been stable 12 preoperatively yesterday, 12 last night, and 12 this morning white count 12.7; platelet count 182,000. Basic metabolic profile is normal. Glucose is Liver function tests are normal. Slight elevation in his transaminases. Magnesium and phosphorus are normal. OBJECTIVE: LUNGS: Clear to auscultation. CARDIAC: Regular rate and rhythm. No murmur or gallop. ABDOMEN: Soft, quiet. EXTREMITIES: Unremarkable. No ankle edema. IMAGING: Chest x-ray, good line placement. No infiltrates. ASSESSMENT AND PLAN: 1. Overnight ventilation after lengthy operation in a patient who is debilitated with diminished mobility, kept intubated for prophylactic reasons. He should be able to be weaned rapidly and extubated. I had discussed with Dr. Ozzy [place]. 2. The patient has an NG tube in place, that should be left in place until his GI function resumes. However, if he removes it or it inadvertently comes out, n.p.o. without NG tube could be performed. 3. Past history of stroke and poor mobility. He functions best with his present to interact with therapy. In this COVID environment, I have asked that his be allowed to be with him to facilitate the patient's participation with therapy and activity. He performs better with her presence. 4. I will be out of town until Sunday. Dr. Malik is covering. We would recommend the patient be up out of bed into neuro chair 2 to 3 times a day and this therapy tending to work with him. Job ID: [id number]
[2019-09-19] MEDS: Nitroglycerin 0.4mg/Hour PATCH TD SCH (10:18)
[2019-09-19] MEDS: FLUoxetine HCl 20 MG CAP PO SCH (10:18)
[2019-09-19] MEDS: Carvedilol 6.25 MG TAB PO SCH ×2 (10:18→17:00)
[2019-09-19] MEDS: Pantoprazole 40 MG VIAL IVP SCH (10:19)
[2019-09-19] MEDS: Insulin Glargine 5 UNITS in Pre-Filled Syringe 1 EACH SC SCH (10:25)
--- NOTE | 2019-09-19 12:33 | PRG ---
DATE OF SERVICE: 09/19/2019 ADDENDUM: Mr. Werner was on Xarelto prior to surgery. His hemoglobin has remained stable. I have written orders to resume prophylactic Lovenox 40 mg a day beginning Sunday morning. Anticoagulation can be restarted on Sunday if hemoglobin remains stable. Dr. Malik is covering until Sunday. Job ID: [id number]
--- NOTE | 2019-09-19 13:04 | CON ---
DATE OF CONSULTATION: 09/19/2019 HISTORY OF PRESENT ILLNESS: Mr. Werner is a 73-year-old male, who was explored again last night. He has left mechanically ventilated. I was consulted to assist in his management. Please see notes between now and my last note for details surrounding his course after his last operation. I saw him in the middle of August after he had a laparotomy for a bowel obstruction. Weakness and deconditioning are big factor back then and probably still will be now. PHYSICAL EXAMINATION: GENERAL: On exam, he is in no distress. Hemodynamically, he has been stable. VITAL SIGNS: His blood pressure 126/79, heart rate in the 80s, respiratory rates in the teens. NEUROLOGICAL: He awakens quickly. He has old neuro deficits from previous CVA. He gives me a right-handed thumbs up very quickly when I asked him to do so. HEENT: His pupils are equal. Sclerae are anicteric. NECK: Supple. LUNGS: Clear. HEART: Regular rhythm. S1, S2 are normal. ABDOMEN: Soft, distended as expected. EXTREMITIES: Without asymmetry or edema. LABORATORY DATA: White count 12.7, hemoglobin 12.0, and platelets 182. Electrolytes are normal. Creatinine is 0.8. IMPRESSION: Status post repeat laparotomy. I suspect, he will do well with extubation. He will be given a spontaneous breathing trial and extubated. Critical care time 30 min. Job ID: [id number] MTDD
--- NOTE | 2019-09-19 13:36 | PDOC.HOSPP ---
- Subjective Encounter Date: 09/19/19 Encounter Time: 11:40 Subjective: pt seen this am., s/p exploratory laporatomy and r.. colectomy w.. ileocolon anastomosis on vent; on v.. low dose propofal, low secretions. plan for extubation. - Objective Vital Signs & Weight: Vital Signs (12 hours) Temp Pulse Resp BP Pulse Ox 09/19/19 13:25 82 17 99 09/19/19 10:32 98 09/19/19 10:18 142/84 H 09/19/19 07:46 101 H 131/83 09/19/19 06:00 17 09/19/19 04:00 98.2 F 17 09/19/19 02:00 15 Weight Admit Weight 226 lb 14.4 oz Weight 220 lb 14.451 oz Most Recent Monitor Data Heart Rate from ECG 98 NIBP 124/85 NIBP BP-Mean 98 Respiration from ECG 15 SpO2 98 I&O: 09/18/19 09/19/19 09/20/19 06:59 06:59 06:59 Intake Total 1690 953 Output Total 627 Balance 1690 326 Result Diagrams: 09/19/19 03:44 09/19/19 03:44 Additional Labs: Accuchecks 09/19/19 09/19/19 09/18/19 12:28 06:16 21:27 POC Glucose 259 H 321 H 154 H Hospitalist ROS - Medication Medications: Active Medications Generic Name Dose Route Start Last Admin Trade Name Freq PRN Reason Stop Dose Admin Albuterol Sulfate 2.5 mg 09/18/19 19:00 09/19/19 13:25 Ventolin NEB 2.5 mg [id number] KATHYA Administration Carvedilol 6.25 mg 09/04/19 17:00 09/19/19 10:18 Coreg PO 6.25 mg BID-WM KATHYA Administration Fluoxetine HCl 40 mg 09/18/19 09:00 09/19/19 10:18 Prozac PO 40 mg DAILY KATHYA Administration Insulin Glargine 5 units/ 0.05 mls @ 0 mls/hr 09/04/19 09:00 09/19/19 10:25 Miscellaneous Medication SC 0.05 mls QAM KATHYA Administration Sterile Water 200 ml/ Sodium 1,770.7021 mls @ 73.779 mls/hr 09/10/19 22:00 22:21 Acetate 40 meq/ Sodium IV 1,770.7021 mls Chloride 60 meq/ Potassium INF KATHYA Administration Chloride 80 meq/ Potassium Phosphate 30 mmol/ Calcium Gluconate 10 meq/ Magnesium Sulfate 10 meq/ Multivitamins 10 ml/ Chromium/Copper/ Manganese/Seleni/Zn 1 ml/ Insulin Human Regular 50 units / Amino Acids/ Dextrose/Water/ Fat Emulsion Intravenous Lactated Ringer's 1,000 mls @ 50 mls/hr 09/19/19 08:22 09/19/19 08:30 Lactated Ringer's IV 1,000 mls .Q20H KATHYA Administration Insulin Human Lispro 0 units 08/19/19 15:39 09/19/19 12:43 Humalog SC 6 unit .MODERATE SLIDING SC PRN Administration Moderate Correctional Scale Insulin Human Lispro 0 units 08/19/19 15:39 09/10/19 19:47 Humalog SC 2 units .BEDTIME SLIDING SC PRN Administration Bedtime Correctional Scale Melatonin 3 mg 09/17/19 21:00 09/18/19 21:25 Melatonin PO Not Given HS KATHYA Nitroglycerin 1 patch 08/26/19 09:00 09/19/19 10:18 Nitro-Dur 0.4mg/Hr Patch TD 1 patch DAILY KATHYA Administration Ondansetron HCl 4 mg 08/19/19 15:39 09/17/19 20:14 Zofran IVP 4 mg Q6H PRN Administration Nausea/Vomiting Pantoprazole Sodium 40 mg 08/28/19 09:00 09/19/19 10:19 Protonix IVP 40 mg DAILY KATHYA Administration Remove Nitro Patch 0 each 09/09/19 21:00 09/18/19 21:24 TD 1 each 2100 KATHYA Administration Propofol 1,000 mg 09/18/19 19:07 09/19/19 03:04 Diprivan IV 10/18/19 19:07 1,000 mg INF PRN Administration TO ACHIEVE GOAL RASS Protocol Sodium Chloride 10 ml 08/19/19 15:39 08/30/19 09:49 Flush - Normal Saline IVF 10 ml PRN PRN Administration Saline Flush - Exam General Appearance: ill appearing General - other findings: vent Eye: PERRL ENT: normocephalic atraumatic Neck: supple Heart: RRR Respiratory: CTAB Gastrointestinal: soft Psychiatric: somnolent 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(s): 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.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 ANTICOAGULANTS Status: Chronic (5) DM type 2 (diabetes mellitus, type 2) Status: Chronic Qualifiers: Diabetes mellitus fpc insulin use: without 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 Diabetes mellitus complication status: with neurologic complications Diabetes mellitus complication detail: with polyneuropathy Qualified Code(s): E11.42 - Type 2 diabetes mellitus with diabetic polyneuropathy (6) Dyslipidemia Code(s): E78.5 - HYPERLIPIDEMIA, UNSPECIFIED Status: Chronic (7) HTN (hypertension) Code(s): I10 - ESSENTIAL (PRIMARY) HYPERTENSION Status: Chronic Qualifiers: Hypertension type: essential hypertension Qualified Code(s): I10 - Essential (primary) hypertension (8) Obesity (BMI 30.0-34.9) Code(s): E66.9 - OBESITY, UNSPECIFIED Status: Chronic Persistent Postoperative ileus -persisting 14 days out. -NG tube in place and on suction. -General surgery following. - on bowel rest and TPN. Hypokalemia -replaced Atrial fibrillation -rate controlled on oral diltiazem and Coreg. -AC - Xarelto ---------> on hold s/p cscope on s/p polpectomy and some changes in terminal ileum and caecum c/w post-op sux changes. 2nd xray - Diffuse ileus in small bowel and colon - getting CT abd to assess the extent of it and to r/o SBO and/orother abn... pt did had Bm last night. afebrile, no hgh wbcs - continue monitoring. 3rd Persistent post op ielus Worsening colonic distention s/p exploratory laporatomy and r.. colectomy w.. ileocolon anastomosis on 2nd evening. - cw TPN as prior to SUX Post op vent -plan for extubation today. DVT ppx- scds, off xarelto Ms. Werner- [phone] CArdiac-PRTL.
[2019-09-19] MEDS: Ketorolac Tromethamine 30 MG/ML VIAL IVP PRN ×2 (13:54→21:10)
--- NOTE | 2019-09-19 19:44 | PRG ---
DATE OF SERVICE: 09/19/2019 SUBJECTIVE: Mr. Werner is a 73-year-old man, postoperative day #1, status post re-exploratory laparotomy, extensive adhesiolysis, right colectomy with primary ileocolonic anastomosis. The patient is sedated on mechanical ventilator support. He readily awakens to voice. He indicated adequate pain control. Urinary output is adequate for patient's age and weight. OBJECTIVE: VITAL SIGNS: This morning when I saw the patient included blood pressure 129/81, pulse 96, respiratory rate 14, maximum temperature in the last 24 hours 99.3 degrees Fahrenheit, oxygen saturation 96% on 40% FiO2. ABDOMEN: Soft. Incision is intact, clean, and dry. LABORATORY FINDINGS: Include a CBC with 12,700 white blood cells, hemoglobin and hematocrit 12.0 and 36.0 respectively, platelet count 182,000. Metabolic profile: Sodium 138, potassium 3.8, chloride 106, bicarb 26, BUN 29, creatinine 0.87, glucose 298. IMPRESSION: Postoperative day #1, status post re-exploratory laparotomy, extensive adhesiolysis, right colectomy with primary ileocolonic anastomosis. The patient is hemodynamically stable from surgical standpoint. Critical care management is deferred to Pulmonary and Critical Care Medicine. Job ID: [id number]
[2019-09-19] MEDS: Melatonin 3 MG TAB PO SCH (20:51)
[2019-09-19] MEDS: REMOVE NITRO PATCH TD SCH (20:52)
[2019-09-19] MEDS: SODIUM ACETATE IV SCH (22:51)
[2019-09-19] MEDS: [UNRECOGNIZED DRUG - OTHER] IV SCH (22:51)
[2019-09-19] MEDS: STERILE WATER IV SCH (22:51)
[2019-09-20 04:59] LABS: #Eosinphils 0.1 thou/uL (0.0-0.7); #Lymphocytes 1.9 thou/uL (1.20-3.40); #Monocytes 1.2 thou/uL (0.11-0.59); #Neutrophils 8.1 thou/uL (1.40-6.50); %Basophils 0.4 % (0.0-1.0); %Eosinophils 0.9 % (0.0-10.0); %Lymphocytes 16.3 % (21.0-51.0); %Monocytes 10.5 % (0.0-10.0); %Neutrophils 71.9 % (42.0-75.0); Hemoglobin 10.1 g/dL (14.0-18.0); Mean Corpuscular HGB CONC 33.2 g/dL (32.0-36.0); Mean Corpuscular Hemoglobin 31.1 pg (27.0-31.0); Mean Corpuscular Volume 93.7 fL (78.0-98.0); Mean Platelet Volume 10.9 fL (7.4-10.4); Platelet Count 138 thou/uL (130-400); Red Blood Cell (RBC) Count 3.24 mill/uL (4.70-6.10); White Blood Cell (WBC) Count 11.3 thou/uL (4.8-10.8)
[2019-09-20] MEDS: HumaLOG 300 UNITS/3 ML VIAL SC PRN ×3 (06:31→16:34)
[2019-09-20] MEDS: Lactated Ringer's 1,000 ML IV SCH (06:40)
[2019-09-20] MEDS: Albuterol Sulfate 2.5 mg/3 ml Neb NEB SCH ×3 (07:43→18:58)
[2019-09-20] MEDS: Insulin Glargine 5 UNITS in Pre-Filled Syringe 1 EACH SC SCH (09:39)
[2019-09-20] MEDS: Nitroglycerin 0.4mg/Hour PATCH TD SCH (09:39)
[2019-09-20] MEDS: Pantoprazole 40 MG VIAL IVP SCH (09:39)
[2019-09-20] MEDS: Enoxaparin Sodium 40 MG/0.4 ML SYRINGE SC SCH (09:39)
[2019-09-20] MEDS: Carvedilol 6.25 MG TAB PO SCH ×2 (09:40→16:34)
[2019-09-20] MEDS: FLUoxetine HCl 20 MG CAP PO SCH (09:40)
[2019-09-20] MEDS: Ketorolac Tromethamine 30 MG/ML VIAL IVP PRN ×2 (10:43→16:40)
--- NOTE | 2019-09-20 15:38 | PDOC.HOSPP ---
- Subjective Encounter Date: 09/20/19 Encounter Time: 15:30 Subjective: f/u for SBO with repeat Lap R colectomy with ileo-colonic anastomosis POD #2. No new issues reported. - Objective Vital Signs & Weight: Vital Signs (12 hours) Temp Pulse Pulse Resp BP BP BP 09/20/19 15:00 98.9 F 67 18 09/20/19 13:35 97.8 F 72 16 09/20/19 13:15 92 20 09/20/19 12:00 99.0 F 09/20/19 11:20 78 136/69 95/63 09/20/19 09:40 134/76 09/20/19 08:00 97.9 F 09/20/19 07:43 77 15 09/20/19 04:00 98.2 F BP BP Pulse Ox Pulse Ox 09/20/19 15:00 146/63 H 93 L 09/20/19 13:35 109/69 93 L 09/20/19 13:15 95 09/20/19 12:00 09/20/19 11:20 99 09/20/19 09:40 09/20/19 08:00 100 09/20/19 07:43 97 09/20/19 04:00 Weight Admit Weight 226 lb 14.4 oz Weight 220 lb 7.396 oz Most Recent Monitor Data Heart Rate from ECG 73 NIBP 111/63 NIBP BP-Mean 79 Respiration from ECG 18 SpO2 100 I&O: 09/19/19 09/20/19 09/21/19 06:59 06:59 06:59 Intake Total 953 2922.6 447 Output Total 627 1261 330 Balance 326 1661.6 117 Result Diagrams: 09/20/19 04:09 09/19/19 03:44 Additional Labs: Accuchecks 09/20/19 09/20/19 09/19/19 12:36 06:34 21:02 POC Glucose 181 H 188 H 185 H Hospitalist ROS - Medication Medications: Active Medications Generic Name Dose Route Start Last Admin Trade Name Freq PRN Reason Stop Dose Admin Albuterol Sulfate 2.5 mg 09/18/19 19:00 09/20/19 13:15 Ventolin NEB 2.5 mg [id number] KATHYA Administration Carvedilol 6.25 mg 09/04/19 17:00 09/20/19 09:40 Coreg PO 6.25 mg BID-WM KATHYA Administration Enoxaparin Sodium 40 mg 09/20/19 09:00 09/20/19 09:39 Lovenox SC 40 mg 0900 KATHYA Administration Fluoxetine HCl 40 mg 09/18/19 09:00 09/20/19 09:40 Prozac PO 40 mg DAILY KATHYA Administration Insulin Glargine 5 units/ 0.05 mls @ 0 mls/hr 09/04/19 09:00 09/20/19 09:39 Miscellaneous Medication SC 0.05 mls QAM KATHYA Administration Sterile Water 200 ml/ Sodium 1,770.7021 mls @ 73.779 mls/hr 09/10/19 22:00 22:51 Acetate 40 meq/ Sodium IV 1,770.7021 mls Chloride 60 meq/ Potassium INF KATHYA Administration Chloride 80 meq/ Potassium Phosphate 30 mmol/ Calcium Gluconate 10 meq/ Magnesium Sulfate 10 meq/ Multivitamins 10 ml/ Chromium/Copper/ Manganese/Seleni/Zn 1 ml/ Insulin Human Regular 50 units / Amino Acids/ Dextrose/Water/ Fat Emulsion Intravenous Lactated Ringer's 1,000 mls @ 50 mls/hr 09/19/19 08:22 09/20/19 06:40 Lactated Ringer's IV 1,000 mls .Q20H KATHYA Administration Insulin Human Lispro 0 units 08/19/19 15:39 09/20/19 12:48 Humalog SC 2 unit .MODERATE SLIDING SC PRN Administration Moderate Correctional Scale Insulin Human Lispro 0 units 08/19/19 15:39 09/10/19 19:47 Humalog SC 2 units .BEDTIME SLIDING SC PRN Administration Bedtime Correctional Scale Ketorolac Tromethamine 15 mg 09/19/19 09:32 09/20/19 10:43 Toradol IVP 09/24/19 09:33 15 mg Q6H PRN Administration Pain Melatonin 3 mg 09/17/19 21:00 09/19/19 20:51 Melatonin PO Not Given [facility] Nitroglycerin 1 patch 08/26/19 09:00 09/20/19 09:39 Nitro-Dur 0.4mg/Hr Patch TD 1 patch DAILY AKTHYA Administration Ondansetron HCl 4 mg 08/19/19 15:39 09/17/19 20:14 Zofran IVP 4 mg Q6H PRN Administration Nausea/Vomiting Pantoprazole Sodium 40 mg 08/28/19 09:00 09/20/19 09:39 Protonix IVP 40 mg DAILY KATHYA Administration Remove Nitro Patch 0 each 09/09/19 21:00 09/19/19 20:52 TD 1 each 2100 KATHYA Administration Propofol 1,000 mg 09/18/19 19:07 09/19/19 03:04 Diprivan IV 10/18/19 19:07 1,000 mg INF PRN Administration TO ACHIEVE GOAL RASS Protocol Sodium Chloride 10 ml 08/19/19 15:39 08/30/19 09:49 Flush - Normal Saline IVF 10 ml PRN PRN Administration Saline Flush - Exam General Appearance: NAD, awake alert Eye: PERRL, anicteric sclera ENT: normocephalic atraumatic, no oropharyngeal lesions Neck: supple, symmetric, no JVD, no thyromegaly, no lymphadenopathy Heart: RRR, no murmur, no gallops, no rubs, normal peripheral pulses Heart - other findings: S1, S2 Respiratory: CTAB, no wheezes, no rales, no ronchi, normal chest expansion Gastrointestinal: soft, non-distended, no palpable masses, diminished bowl sounds Gastrointestinal - other findings: Incision C/D/I Extremities: no cyanosis, no clubbing, no edema Skin: normal turgor Neurological: cranial nerve grossly intact, no new deficit Musculoskeletal: normal tone, generalized weakness Psychiatric: A&O x 3 Hosp A/P (1) SBO (small bowel obstruction) Code(s): K56.609 - UNSP INTESTNL OBST, UNSP TO PARTIAL VERSUS COMPLETE OBST Status: Acute Plan: s/p repeat laparotomy with R colectomy with ileocolonic anastomosis POD #2. Feels better overall. No issues reported. (2) Hypokalemia Code(s): E87.6 - HYPOKALEMIA Status: Acute Plan: Resolving, serial K+ monitoring (3) Atrial fibrillation with RVR Code(s): I48.91 - UNSPECIFIED ATRIAL FIBRILLATION Status: Chronic Plan: Rate-controlled currently, continue Coreg, Eliquis on hold (4) Hypophosphatemia Code(s): E83.39 - OTHER DISORDERS OF PHOSPHORUS METABOLISM Status: Acute (5) Sepsis Code(s): A41.9 - SEPSIS, UNSPECIFIED ORGANISM Status: Acute Qualifiers: Sepsis type: sepsis due to unspecified organism Sepsis acute organ dysfunction status: without acute organ dysfunction Qualified Code(s): A41.9 - Sepsis, unspecified organism Plan: Resolving with above mgmt (6) Chronic anticoagulation Code(s): Z79.01 - HALF-WAY (CURRENT) USE OF ANTICOAGULANTS Status: Chronic Plan: Eliquis on hold post-op, continue SC Lovenox - Plan PT/OT, director social, respiratory therapy, incentive spirometry, out of bed/ ambulate, DVT proph w/SCDs Stable currently Continue routine post-op care POD #2 TPN as clinically tolerated Rehab vs NH options OOB with PT AM lab: CMP, CBC
--- NOTE | 2019-09-20 17:38 | PRG ---
DATE OF SERVICE: 09/20/2019 I am seeing Mr. Werner on behalf of Dr. Castellon, the patient's primary surgeon. The patient is a 73-year-old man who is postoperative day number 2 today status post re-exploratory laparotomy, adhesiolysis, right colectomy with primary ileocolonic anastomosis. The patient was successfully extubated yesterday noon and has had no respiratory difficulties since. This morning, he is awake and alert, reports adequate pain control. Denies passing any flatus or having bowel movements. His urinary output has remained adequate. OBJECTIVE: VITAL SIGNS: When I saw him this morning includes blood pressure 118/76, pulse 77, respiratory rate is 15. Maximum temperature in last 24 hours is 98.9 degrees Fahrenheit, oxygen saturation was 97% on 2 L by nasal cannula oxygen. HEART: Reveals irregular rate and rhythm, but rate controlled. LUNGS: Clear to auscultation bilaterally. Breathing, regular and nonlabored. ABDOMEN: Soft. Incision is intact, clean and dry. He has minimal incisional tenderness to palpation. Clearly no peritoneal signs on examination. LABORATORY FINDINGS: Include a CBC with 11,300 white blood cells, hemoglobin and hematocrit 10.1 and 30.3 respectively, platelet count is 138,000. IMPRESSION: Postop day #2, status post right hemicolectomy with primary anastomosis. The patient is hemodynamically stable and from general surgical standpoint may be transferred to the surgical floor at the discretion of Pulmonary Critical Care Medicine. . Job ID: [id number]
--- NOTE | 2019-09-20 20:33 | PRG ---
DATE OF SERVICE: 09/20/2019 SUBJECTIVE: Andrae Werner was evaluated this morning. When I saw him, he just refused physical therapy. According to the nursing staff and physical therapy, he is a complete weight lift and is not cooperating with helping himself get out in bed or move about at all. OBJECTIVE: VITAL SIGNS: He is afebrile. Heart rate is in the 70s, blood pressure 148/73, respiratory rate 16, oximetry is 95% on room air. LUNGS: Clear. HEART: Regular rhythm. S1 and S2 are normal. ABDOMEN: Soft and nontender. EXTREMITIES: Without edema. LABORATORY DATA: White count 11.3, hemoglobin 10.1, and platelets 138. Electrolytes are normal. BUN 29 and creatinine 0.87. IMPRESSION AND PLAN: Respiratory failure, status post overnight mechanical ventilation after second laparotomy. Clinically stable at this time. comfortable critical care unit. We will follow from a distance. Job ID: [id number]
[2019-09-20] MEDS: Melatonin 3 MG TAB PO SCH ×2 (21:21→21:23)
[2019-09-20] MEDS: REMOVE NITRO PATCH TD SCH (21:21)
[2019-09-20] MEDS: SODIUM ACETATE IV SCH (22:27)
[2019-09-20] MEDS: STERILE WATER IV SCH (22:27)
[2019-09-20] MEDS: [UNRECOGNIZED DRUG - OTHER] IV SCH (22:27)
[2019-09-21] MEDS: Albuterol Sulfate 2.5 mg/3 ml Neb NEB SCH ×4 (00:37→18:45)
[2019-09-21] MEDS: Lactated Ringer's 1,000 ML IV SCH ×2 (01:20→20:58)
[2019-09-21 05:33] LABS: ALT (SGPT) 74 U/L (8-55); AST (SGOT) 47 U/L (5-34); Albumin 2.5 g/dL (3.4-4.8); Alkaline Phosphatase 93 U/L (40-110); Anion Gap 7 mmol/L (10-20); BUN (Urea Nitrogen) 38 mg/dL (8.4-25.7); Bilirubin, Total 0.6 mg/dL (0.2-1.2); Calc. Creatinine Clearance 109 mL/min (70-130); Calcium 8.2 mg/dL (7.8-10.44); Carbon Dioxide 28 mmol/L (23-31); Chloride 111 mmol/L (98-107); Estimated GFR-MDRD 90; Globulin 2.9 g/dL (2.4-3.5); Glucose 136 mg/dL (83-110); Potassium 4.3 mmol/L (3.5-5.1); Protein, Total 5.4 g/dL (5.8-8.1); Sodium 142 mmol/L (136-145)
[2019-09-21 06:07] LABS: #Eosinphils 0.3 thou/uL (0.0-0.7); #Lymphocytes 1.9 thou/uL (1.20-3.40); #Monocytes 0.8 thou/uL (0.11-0.59); #Neutrophils 6.3 thou/uL (1.40-6.50); %Eosinophils 3.6 % (0.0-10.0); %Lymphocytes 20.1 % (21.0-51.0); %Monocytes 8.8 % (0.0-10.0); %Neutrophils 67.6 % (42.0-75.0); Hemoglobin 9.2 g/dL (14.0-18.0); Large Platelets SLIGHT; MDiff Complete? YES; Mean Corpuscular Hemoglobin 31.5 pg (27.0-31.0); Mean Corpuscular Volume 92.8 fL (78.0-98.0); Mean Platelet Volume 11.4 fL (7.4-10.4); Platelet Count 108 thou/uL (130-400); Platelet Morphology Comment Appears Decreased; Polychromasia SLIGHT = 2-3 cells (100X) (0-2/hpf); Red Blood Cell (RBC) Count 2.93 mill/uL (4.70-6.10); White Blood Cell (WBC) Count 9.3 thou/uL (4.8-10.8)
[2019-09-21] MEDS: Pantoprazole 40 MG VIAL IVP SCH (09:21)
[2019-09-21] MEDS: FLUoxetine HCl 20 MG CAP PO SCH (09:21)
[2019-09-21] MEDS: Carvedilol 6.25 MG TAB PO SCH ×2 (09:21→18:31)
[2019-09-21] MEDS: Enoxaparin Sodium 40 MG/0.4 ML SYRINGE SC SCH (09:22)
[2019-09-21] MEDS: Insulin Glargine 5 UNITS in Pre-Filled Syringe 1 EACH SC SCH (09:22)
[2019-09-21] MEDS: Nitroglycerin 0.4mg/Hour PATCH TD SCH (09:36)
[2019-09-21] MEDS: Ondansetron PF 4 MG/2 ML Vial IVP PRN (09:36)
[2019-09-21] MEDS: HumaLOG 300 UNITS/3 ML VIAL SC PRN (14:09)
--- NOTE | 2019-09-21 15:42 | PDOC.HOSPP ---
- Subjective Encounter Date: 09/21/19 Encounter Time: 15:40 Subjective: f/u for re-exp laparotomy with R hemicolectomy with primary anastomosis POD #3. States feeling better overall. Off suction to NGT and started on TF's. - Objective Vital Signs & Weight: Vital Signs (12 hours) Temp Pulse Resp BP BP Pulse Ox 09/21/19 13:24 75 16 09/21/19 11:17 98.5 F 71 18 129/67 92 L 09/21/19 09:21 153/65 H 09/21/19 07:16 97.7 F 72 18 153/65 H 95 09/21/19 07:14 71 18 94 L 09/21/19 07:00 94 L 09/21/19 03:51 98.9 F 61 17 151/80 H 93 L Weight Admit Weight 226 lb 14.4 oz Weight 224 lb Most Recent Monitor Data Heart Rate from ECG 73 NIBP 111/63 NIBP BP-Mean 79 Respiration from ECG 18 SpO2 100 I&O: 09/20/19 09/21/19 09/22/19 06:59 06:59 06:59 Intake Total 2922.6 1066 1470 Output Total 1261 480 375 Balance 1661.6 586 1095 Result Diagrams: 09/21/19 05:05 09/21/19 05:05 Additional Labs: Accuchecks 09/21/19 09/21/19 09/20/19 11:21 06:08 21:20 POC Glucose 189 H 156 H 150 H 09/20/19 15:07 POC Glucose 176 H Microbiology 08/19/19 18:00 Stool - Liquid Stool Culture - Final Pseudomonas aeruginosa 08/19/19 18:00 Stool - Liquid Campylobacter Antigen Assay - Final 08/19/19 18:00 Stool - Liquid Shiga Toxin Test - Final 08/19/19 18:00 Stool C. difficile GDH Antigen & Toxins - Final 08/19/19 12:42 Urine Straight Catheter Urine Culture - Final NO GROWTH AT 48 HOURS 08/19/19 12:54 Venous blood - Right Hand Blood Culture - Preliminary NO GROWTH AT 48 HOURS 08/19/19 12:38 Venous blood - Right Arm Blood Culture - Preliminary NO GROWTH AT 48 HOURS Laboratory Tests 08/19/19 08/20/19 08/26/19 16:02 15:40 01:43 WBC Hgb Potassium Phosphorus Magnesium 1.5 L AST ALT Albumin COVID-19 PCR Not Detected Not Detected 08/26/19 08/27/19 08/27/19 01:43 04:54 04:54 WBC Hgb Potassium 3.2 L Phosphorus 1.6 L 2.2 L Magnesium AST ALT Albumin COVID-19 PCR 08/28/19 09/18/19 09/19/19 03:30 22:15 03:44 WBC 15.2 H Hgb 12.4 L Potassium Phosphorus 2.5 3.1 Magnesium 1.7 1.6 AST 43 H ALT 98 H Albumin 2.9 L COVID-19 PCR 09/19/19 03:44 WBC 12.7 H Hgb 12.0 L Potassium Phosphorus Magnesium AST ALT Albumin COVID-19 PCR Hospitalist ROS - Medication Medications: Active Medications Generic Name Dose Route Start Last Admin Trade Name Freq PRN Reason Stop Dose Admin Albuterol Sulfate 2.5 mg 09/18/19 19:00 09/21/19 13:24 Ventolin NEB 2.5 mg [id number] KATHYA Administration Carvedilol 6.25 mg 09/04/19 17:00 09/21/19 09:21 Coreg PO 6.25 mg BID-WM KATHYA Administration Enoxaparin Sodium 40 mg 09/20/19 09:00 09/21/19 09:22 Lovenox SC 40 mg 0900 KATHYA Administration Fluoxetine HCl 40 mg 09/18/19 09:00 09/21/19 09:21 Prozac PO 40 mg DAILY KATHYA Administration Insulin Glargine 5 units/ 0.05 mls @ 0 mls/hr 09/04/19 09:00 09/21/19 09:22 Miscellaneous Medication SC 0.05 mls QAM KATHYA Administration Sterile Water 200 ml/ Sodium 1,770.7021 mls @ 73.779 mls/hr 09/10/19 22:00 22:27 Acetate 40 meq/ Sodium IV 1,770.7021 mls Chloride 60 meq/ Potassium INF KATHYA Administration Chloride 80 meq/ Potassium Phosphate 30 mmol/ Calcium Gluconate 10 meq/ Magnesium Sulfate 10 meq/ Multivitamins 10 ml/ Chromium/Copper/ Manganese/Seleni/Zn 1 ml/ Insulin Human Regular 50 units / Amino Acids/ Dextrose/Water/ Fat Emulsion Intravenous Lactated Ringer's 1,000 mls @ 50 mls/hr 09/19/19 08:22 09/21/19 01:20 Lactated Ringer's IV Not Given .Q20H KATHYA Insulin Human Lispro 0 units 08/19/19 15:39 09/21/19 14:09 Humalog SC 2 unit .MODERATE SLIDING SC PRN Administration Moderate Correctional Scale Insulin Human Lispro 0 units 08/19/19 15:39 09/10/19 19:47 Humalog SC 2 units .BEDTIME SLIDING SC PRN Administration Bedtime Correctional Scale Ketorolac Tromethamine 15 mg 09/19/19 09:32 09/20/19 16:40 Toradol IVP 09/24/19 09:33 15 mg Q6H PRN Administration Pain Melatonin 3 mg 09/17/19 21:00 09/20/19 21:23 Melatonin PO Not Given HS KATHYA Nitroglycerin 1 patch 08/26/19 09:00 09/21/19 09:36 Nitro-Dur 0.4mg/Hr Patch TD 1 patch DAILY KATHYA Administration Ondansetron HCl 4 mg 08/19/19 15:39 09/21/19 09:36 Zofran IVP 4 mg Q6H PRN Administration Nausea/Vomiting Pantoprazole Sodium 40 mg 08/28/19 09:00 09/21/19 09:21 Protonix IVP 40 mg DAILY KATHYA Administration Remove Nitro Patch 0 each 09/09/19 21:00 09/20/19 21:21 TD 1 each 2100 KATHYA Administration Propofol 1,000 mg 09/18/19 19:07 09/19/19 03:04 Diprivan IV 10/18/19 19:07 1,000 mg INF PRN Administration TO ACHIEVE GOAL RASS Protocol Sodium Chloride 10 ml 08/19/19 15:39 08/30/19 09:49 Flush - Normal Saline IVF 10 ml PRN PRN Administration Saline Flush - Exam General Appearance: NAD, awake alert Eye: PERRL, anicteric sclera ENT: normocephalic atraumatic, no oropharyngeal lesions ENT - other findings: NGT in place Neck: supple, symmetric, no JVD, no thyromegaly, no lymphadenopathy Heart: RRR, no gallops, no rubs, normal peripheral pulses Heart - other findings: S1, S2 Respiratory: CTAB, no wheezes, no rales, no ronchi, normal chest expansion Gastrointestinal: soft, non-distended, normal bowel sounds Gastrointestinal - other findings: incision C/D/I Extremities: no cyanosis, no clubbing Skin: normal turgor Neurological: cranial nerve grossly intact, no new deficit Musculoskeletal: normal tone, generalized weakness Psychiatric: A&O x 3, flat affect Hosp A/P (1) SBO (small bowel obstruction) Code(s): K56.609 - UNSP INTESTNL OBST, UNSP TO PARTIAL VERSUS COMPLETE OBST Status: Acute Plan: s/p lap R hemicolectomy with ileo-colonic anastomosis POD #3, continue post-op care, TF's, serial abd exams (2) Hypokalemia Code(s): E87.6 - HYPOKALEMIA Status: Acute Plan: Resolving, continue serial monitoring (3) Atrial fibrillation with RVR Code(s): I48.91 - UNSPECIFIED ATRIAL FIBRILLATION Status: Chronic Plan: Resolved, current SR (4) Hypophosphatemia Code(s): E83.39 - OTHER DISORDERS OF PHOSPHORUS METABOLISM Status: Acute Plan: Resolving (5) Sepsis Code(s): A41.9 - SEPSIS, UNSPECIFIED ORGANISM Status: Acute Qualifiers: Sepsis type: sepsis due to unspecified organism Sepsis acute organ dysfunction status: without acute organ dysfunction Qualified Code(s): A41.9 - Sepsis, unspecified organism (6) Chronic anticoagulation Code(s): Z79.01 - SENIOR LIVING (CURRENT) USE OF ANTICOAGULANTS Status: Chronic Plan: On hold post-op, Lovenox for DVT ppx - Plan PT/OT, social services aide, respiratory therapy, incentive spirometry, out of bed/ ambulate, DVT proph w/SCDs Stable currently Continue routine post-op care POD #3 TPN as clinically tolerated Rehab vs NH options OOB with PT AM lab: BMP, CBC
[2019-09-21] MEDS: Ketorolac Tromethamine 30 MG/ML VIAL IVP PRN (18:32)
--- NOTE | 2019-09-21 20:46 | PRG ---
DATE OF SERVICE: 09/21/2019 SUBJECTIVE: Mr. Werner is a 73-year-old man, who is postoperative day #3, status post reoperative laparotomy, right colectomy with primary ileocolonic anastomosis. The patient is awake and alert this morning. Nasogastric tube returns scant amount of nonbilious effluent. The patient denies any abdominal pain, nausea, or vomiting. OBJECTIVE: VITAL SIGNS: This morning, when I saw him, included blood pressure 134/76, pulse was 78, respiratory rate 15, temperature 97.9 degrees Fahrenheit, oxygen saturation was 100% on 2 L by nasal cannula oxygen. HEART: Reveals regular rate and rhythm. LUNGS: Scattered rhonchi. Breathing regular and nonlabored. ABDOMEN: Soft and obese. Incision is intact, clean, and dry. He has active bowel sounds. He thinks he is passing flatus, but he has had no bowel movements. NEUROLOGIC: Reveals no focal deficits present. LABORATORY FINDINGS: Today include a CBC with 9300 white blood cells, hemoglobin and hematocrit 9.2 and 27.2 respectively. Platelet count is 108,000. Metabolic profile: Sodium 142, potassium 4.3, chloride is 111, bicarb is 28, BUN 38, creatinine is 0.83, glucose is 136. IMPRESSIONS: Postoperative day #3, status post re-exploratory laparotomy with right colectomy and primary ileocolostomy. PLAN: 1. We will start the patient on trophic enteral nutritional supplementation through the nasogastric tube. The tube will be discontinued upon return of bowel function. 2. We will increase the activity per Physical and Occupational Therapy. Above findings and plan discussed with the patient. Job ID: [id number]
[2019-09-21] MEDS: REMOVE NITRO PATCH TD SCH (20:58)
[2019-09-21] MEDS: Melatonin 3 MG TAB PO SCH (20:58)
[2019-09-21] MEDS: [UNRECOGNIZED DRUG - OTHER] IV SCH (22:44)
[2019-09-21] MEDS: SODIUM ACETATE IV SCH (22:44)
[2019-09-21] MEDS: STERILE WATER IV SCH (22:44)
[2019-09-22] MEDS: Albuterol Sulfate 2.5 mg/3 ml Neb NEB SCH ×4 (01:19→18:43)
[2019-09-22] MEDS: Acetaminophen 500 MG TAB PO PRN (03:38)
[2019-09-22 04:30] LABS: #Eosinphils 0.2 thou/uL (0.0-0.7); #Lymphocytes 1.6 thou/uL (1.20-3.40); #Monocytes 1.1 thou/uL (0.11-0.59); #Neutrophils 8.6 thou/uL (1.40-6.50); %Basophils 0.3 % (0.0-1.0); %Eosinophils 1.4 % (0.0-10.0); %Lymphocytes 14.1 % (21.0-51.0); %Monocytes 9.4 % (0.0-10.0); %Neutrophils 74.8 % (42.0-75.0); Hemoglobin 8.5 g/dL (14.0-18.0); Mean Corpuscular HGB CONC 32.7 g/dL (32.0-36.0); Mean Corpuscular Hemoglobin 30.4 pg (27.0-31.0); Mean Corpuscular Volume 93.1 fL (78.0-98.0); Mean Platelet Volume 11.3 fL (7.4-10.4); Platelet Count 124 thou/uL (130-400); RBC Distribution Width 13.1 % (11.5-14.5); Red Blood Cell (RBC) Count 2.78 mill/uL (4.70-6.10); White Blood Cell (WBC) Count 11.5 thou/uL (4.8-10.8)
[2019-09-22 04:48] LABS: Anion Gap 10 mmol/L (10-20); BUN (Urea Nitrogen) 27 mg/dL (8.4-25.7); Calc. Creatinine Clearance 118 mL/min (70-130); Carbon Dioxide 24 mmol/L (23-31); Chloride 112 mmol/L (98-107); Estimated GFR-MDRD Greater than 90; Glucose 149 mg/dL (83-110); Potassium 4.3 mmol/L (3.5-5.1); Sodium 142 mmol/L (136-145)
[2019-09-22] MEDS: HumaLOG 300 UNITS/3 ML VIAL SC PRN (05:40)
[2019-09-22] MEDS: Enoxaparin Sodium 40 MG/0.4 ML SYRINGE SC SCH (08:58)
[2019-09-22] MEDS: Insulin Glargine 5 UNITS in Pre-Filled Syringe 1 EACH SC SCH (08:58)
[2019-09-22] MEDS: Pantoprazole 40 MG VIAL IVP SCH (08:58)
[2019-09-22] MEDS: Carvedilol 6.25 MG TAB PO SCH ×2 (08:58→17:45)
[2019-09-22] MEDS: FLUoxetine HCl 20 MG CAP PO SCH (08:58)
[2019-09-22] MEDS: Nitroglycerin 0.4mg/Hour PATCH TD SCH (08:59)
--- NOTE | 2019-09-22 10:50 | RAD ---
RADIOGRAPH CHEST 1 VIEW: DATE: 09/22/2019 TIME: 10:43 AM HISTORY: 73-year-old male status post NG tube placement COMPARISON: 09/18/2019 FINDINGS: Esophagogastric tube distal tip is in the far lateral aspect of the right upper quadrant of the abdom en, in the expected location of proximal duodenum or gastric antrum. Lung apices are excluded from [id number], especially the right. Suboptimal evaluation of lungs. No large consolidation. IMPRESSION: Esophagogastric tube as above
--- NOTE | 2019-09-22 17:48 | PRG ---
DATE OF SERVICE: 09/22/2019 SUBJECTIVE: The patient was seen this morning during rounds. He was sitting up in bed with no signs of acute distress. He reported pain was well controlled. He is tolerating his trickle tube feeds at 10 an hour. He denies flatus or bowel movements at this time. He continues to put very little effort into his mobility and incentive spirometry. I did explain to him the importance of working with physical therapy and completing incentive spirometry. He reported he understood. OBJECTIVE: VITAL SIGNS: Temperature 99.2, pulse 76, respirations 18, oxygen saturation 96% on room air, and blood pressure 138/79. GENERAL: Weak-appearing elderly male, lying in bed with no signs of acute distress. PULMONARY: Equal chest rise and fall. Clear breath sounds bilaterally. No signs of acute respiratory distress. CARDIAC: Regular rate and rhythm. GI: Abdomen is soft, nontender, nondistended. He has positive active bowel sounds throughout. His midline wound with GRABIEL dressing is in place and working appropriately. EXTREMITIES: 2+ pulses in all extremities. Gross motor and sensation intact. NEUROLOGIC: GCS is 15. LABORATORY FINDINGS: White count 11.5, hemoglobin 8.5, hematocrit 25.6, platelets 124. Sodium 142, potassium 4.3, chloride 24, BUN 27, creatinine 0.78, glucose 149. DIAGNOSTIC FINDINGS: There are no new diagnostic findings to report. ASSESSMENT: Postoperative day 4, status post re-exploratory laparotomy with right colectomy and primary ileocolostomy. PLAN: Continue trophic tube feeds and supplementation through NG tube. Continue to monitor for return of bowel function. Continue aggressive physical and occupational therapy. Continue aggressive pulmonary hygiene with incentive spirometry. This patient was discussed with Dr. Malik before this dictation. Job ID: [id number]
--- NOTE | 2019-09-22 18:12 | PDOC.HOSPP ---
- Subjective Encounter Date: 09/22/19 Encounter Time: 18:00 Subjective: f/u for SBO s/p re-exp laparotomy with R hemicolectomy/ileocolonic anastomosis POD #4. Continues with low-volume TF's through NGT. Not participating with PT. - Objective Vital Signs & Weight: Vital Signs (12 hours) Temp Pulse Resp BP BP Pulse Ox 09/22/19 17:45 123/68 09/22/19 15:56 98.8 F 75 20 123/68 93 L 09/22/19 11:45 98.9 F 72 20 112/54 L 94 L 09/22/19 08:58 138/79 09/22/19 08:05 99.2 F 76 18 138/79 96 09/22/19 07:53 76 18 99 Weight Admit Weight 226 lb 14.4 oz Weight 224 lb Most Recent Monitor Data Heart Rate from ECG 73 NIBP 111/63 NIBP BP-Mean 79 Respiration from ECG 18 SpO2 100 I&O: 09/21/19 09/22/19 09/23/19 06:59 06:59 06:59 Intake Total 1066 4616.95 Output Total 480 1500 550 Balance 586 3116.95 -550 Result Diagrams: 09/22/19 04:00 09/22/19 04:00 Additional Labs: Accuchecks 09/22/19 09/22/19 09/21/19 11:46 05:36 21:08 POC Glucose 162 H 201 H 142 H Microbiology 08/19/19 18:00 Stool - Liquid Stool Culture - Final Pseudomonas aeruginosa 08/19/19 18:00 Stool - Liquid Campylobacter Antigen Assay - Final 08/19/19 18:00 Stool - Liquid Shiga Toxin Test - Final 08/19/19 18:00 Stool C. difficile GDH Antigen & Toxins - Final 08/19/19 12:42 Urine Straight Catheter Urine Culture - Final NO GROWTH AT 48 HOURS 08/19/19 12:54 Venous blood - Right Hand Blood Culture - Preliminary NO GROWTH AT 48 HOURS 08/19/19 12:38 Venous blood - Right Arm Blood Culture - Preliminary NO GROWTH AT 48 HOURS Laboratory Tests 08/19/19 08/20/19 08/26/19 16:02 15:40 01:43 WBC Hgb Potassium Phosphorus Magnesium 1.5 L AST ALT Albumin COVID-19 PCR Not Detected Not Detected 08/26/19 08/27/19 08/27/19 01:43 04:54 04:54 WBC Hgb Potassium 3.2 L Phosphorus 1.6 L 2.2 L Magnesium AST ALT Albumin COVID-19 PCR 08/28/19 09/18/19 09/19/19 03:30 22:15 03:44 WBC 15.2 H Hgb 12.4 L Potassium Phosphorus 2.5 3.1 Magnesium 1.7 1.6 AST 43 H ALT 98 H Albumin 2.9 L COVID-19 PCR 09/19/19 03:44 WBC 12.7 H Hgb 12.0 L Potassium Phosphorus Magnesium AST ALT Albumin COVID-19 PCR Radiology Reviewed by me: Yes (PCXR - NGT in place) Hospitalist ROS - Medication Medications: Active Medications Generic Name Dose Route Start Last Admin Trade Name Freq PRN Reason Stop Dose Admin Acetaminophen 1,000 mg 09/22/19 00:01 09/22/19 03:38 Tylenol PO 1,000 mg Q6H PRN Administration Headache/Fever or Pain Albuterol Sulfate 2.5 mg 09/18/19 19:00 09/22/19 13:08 Ventolin NEB Not Given [id number] KATHYA Carvedilol 6.25 mg 09/04/19 17:00 09/22/19 17:45 Coreg PO 6.25 mg BID-WM KATHYA Administration Enoxaparin Sodium 40 mg 09/20/19 09:00 09/22/19 08:58 Lovenox SC 40 mg 0900 KATHYA Administration Fluoxetine HCl 40 mg 09/18/19 09:00 09/22/19 08:58 Prozac PO 40 mg DAILY KATHYA Administration Insulin Glargine 5 units/ 0.05 mls @ 0 mls/hr 09/04/19 09:00 09/22/19 08:58 Miscellaneous Medication SC 0.05 mls QAM KATHYA Administration Sterile Water 200 ml/ Sodium 1,770.7021 mls @ 73.779 mls/hr 09/10/19 22:00 22:44 Acetate 40 meq/ Sodium IV 1,770.7021 mls Chloride 60 meq/ Potassium INF KATHYA Administration Chloride 80 meq/ Potassium Phosphate 30 mmol/ Calcium Gluconate 10 meq/ Magnesium Sulfate 10 meq/ Multivitamins 10 ml/ Chromium/Copper/ Manganese/Seleni/Zn 1 ml/ Insulin Human Regular 50 units / Amino Acids/ Dextrose/Water/ Fat Emulsion Intravenous Lactated Ringer's 1,000 mls @ 50 mls/hr 09/19/19 08:22 09/21/19 20:58 Lactated Ringer's IV 1,000 mls .Q20H KATHYA Administration Insulin Human Lispro 0 units 08/19/19 15:39 09/22/19 05:40 Humalog SC 4 unit .MODERATE SLIDING SC PRN Administration Moderate Correctional Scale Insulin Human Lispro 0 units 08/19/19 15:39 09/10/19 19:47 Humalog SC 2 units .BEDTIME SLIDING SC PRN Administration Bedtime Correctional Scale Ketorolac Tromethamine 15 mg 09/19/19 09:32 09/21/19 18:32 Toradol IVP 09/24/19 09:33 15 mg Q6H PRN Administration Pain Melatonin 3 mg 09/17/19 21:00 09/21/19 20:58 Melatonin PO 3 mg HS KATHYA Administration Nitroglycerin 1 patch 08/26/19 09:00 09/22/19 08:59 Nitro-Dur 0.4mg/Hr Patch TD 1 patch DAILY KATHYA Administration Ondansetron HCl 4 mg 08/19/19 15:39 09/21/19 09:36 Zofran IVP 4 mg Q6H PRN Administration Nausea/Vomiting Pantoprazole Sodium 40 mg 08/28/19 09:00 09/22/19 08:58 Protonix IVP 40 mg DAILY KATHYA Administration Remove Nitro Patch 0 each 09/09/19 21:00 09/21/19 20:58 TD 1 each 2100 KATHYA Administration Sodium Chloride 10 ml 08/19/19 15:39 09/22/19 08:59 Flush - Normal Saline IVF 10 ml PRN PRN Administration Saline Flush - Exam General Appearance: NAD, awake alert Eye: PERRL, anicteric sclera ENT: normocephalic atraumatic, no oropharyngeal lesions ENT - other findings: NGT in place Neck: supple, symmetric, no JVD, no thyromegaly Heart: RRR, no gallops, no rubs, normal peripheral pulses Heart - other findings: S1, S2 Respiratory: CTAB, no wheezes, no rales, no ronchi, normal chest expansion Gastrointestinal: soft, no palpable masses, diminished bowl sounds Gastrointestinal - other findings: mild distention Extremities: no cyanosis, no clubbing, no edema Skin: normal turgor, no lesions Neurological: cranial nerve grossly intact, no new deficit Musculoskeletal: generalized weakness Psychiatric: A&O x 3, flat affect Hosp A/P (1) SBO (small bowel obstruction) Code(s): K56.609 - UNSP INTESTNL OBST, UNSP TO PARTIAL VERSUS COMPLETE OBST Status: Acute Plan: s/p re-exp laparotomy with R hemicolectomy and ileocolonic anastomosis POD #4, pain control, mobilization, TF's (2) Hypokalemia Code(s): E87.6 - HYPOKALEMIA Status: Acute (3) Atrial fibrillation with RVR Code(s): I48.91 - UNSPECIFIED ATRIAL FIBRILLATION Status: Chronic (4) Hypophosphatemia Code(s): E83.39 - OTHER DISORDERS OF PHOSPHORUS METABOLISM Status: Acute (5) Sepsis Code(s): A41.9 - SEPSIS, UNSPECIFIED ORGANISM Status: Acute Qualifiers: Sepsis type: sepsis due to unspecified organism Sepsis acute organ dysfunction status: without acute organ dysfunction Qualified Code(s): A41.9 - Sepsis, unspecified organism (6) Chronic anticoagulation Code(s): Z79.01 - SAFETY ANALYST (CURRENT) USE OF ANTICOAGULANTS Status: Chronic - Plan PT/OT, social professionals, incentive spirometry, out of bed/ambulate, DVT proph w/ SCDs Stable currently Continue routine post-op care POD #4 TF's as tolerated Rehab vs NH options OOB with PT, non-compliant AM lab: BMP
[2019-09-22] MEDS: Lactated Ringer's 1,000 ML IV SCH (19:27)
[2019-09-22] MEDS: Melatonin 3 MG TAB PO SCH (20:57)
[2019-09-22] MEDS: REMOVE NITRO PATCH TD SCH (20:57)
[2019-09-22] MEDS: Ketorolac Tromethamine 30 MG/ML VIAL IVP PRN (21:23)
[2019-09-22] MEDS: SODIUM ACETATE IV SCH (22:48)
[2019-09-22] MEDS: STERILE WATER IV SCH (22:48)
[2019-09-22] MEDS: [UNRECOGNIZED DRUG - OTHER] IV SCH (22:48)
[2019-09-23] MEDS: Albuterol Sulfate 2.5 mg/3 ml Neb NEB SCH ×4 (00:21→19:33)
[2019-09-23 05:17] LABS: Anion Gap 11 mmol/L (10-20); BUN (Urea Nitrogen) 26 mg/dL (8.4-25.7); Calc. Creatinine Clearance 121 mL/min (70-130); Calcium 7.9 mg/dL (7.8-10.44); Carbon Dioxide 24 mmol/L (23-31); Chloride 111 mmol/L (98-107); Estimated GFR-MDRD Greater than 90; Glucose 130 mg/dL (83-110); Sodium 142 mmol/L (136-145)
[2019-09-23] MEDS: Lactated Ringer's 1,000 ML IV SCH ×2 (05:41→22:09)
[2019-09-23] MEDS: Ketorolac Tromethamine 30 MG/ML VIAL IVP PRN ×2 (06:05→12:58)
[2019-09-23] MEDS: Carvedilol 6.25 MG TAB PO SCH ×2 (08:47→17:42)
[2019-09-23] MEDS: FLUoxetine HCl 20 MG CAP PO SCH (08:47)
[2019-09-23] MEDS: Enoxaparin Sodium 40 MG/0.4 ML SYRINGE SC SCH (08:48)
[2019-09-23] MEDS: Nitroglycerin 0.4mg/Hour PATCH TD SCH (08:48)
[2019-09-23] MEDS: Pantoprazole 40 MG VIAL IVP SCH (08:49)
[2019-09-23] MEDS: Insulin Glargine 5 UNITS in Pre-Filled Syringe 1 EACH SC SCH (08:49)
--- NOTE | 2019-09-23 15:32 | PDOC.HOSPP ---
- Subjective Encounter Date: 09/23/19 Encounter Time: 15:30 Subjective: f/u for SBO s/p re-exp laparotomy with R hemicolectomy and ileo-colonic anastomosis POD #5. Feels weak and wants to go home. Small BM today. Tolerating low-volume TF's. - Objective Vital Signs & Weight: Vital Signs (12 hours) Temp Pulse Resp BP BP Pulse Ox 09/23/19 13:20 75 18 97 09/23/19 11:59 98.7 F 77 20 160/77 H 93 L 09/23/19 08:47 123/68 09/23/19 07:58 98.9 F 81 20 142/79 H 96 09/23/19 06:49 77 20 97 09/23/19 03:41 98.8 F 80 16 150/90 H 94 L Weight Admit Weight 226 lb 14.4 oz Weight 224 lb Most Recent Monitor Data Heart Rate from ECG 73 NIBP 111/63 NIBP BP-Mean 79 Respiration from ECG 18 SpO2 100 I&O: 09/22/19 09/23/19 09/24/19 06:59 06:59 06:59 Intake Total 4616.95 1724.4 Output Total 1500 1000 Balance 3116.95 724.4 Result Diagrams: 09/22/19 04:00 09/23/19 03:30 Additional Labs: Accuchecks 09/22/19 09/22/19 23:57 18:37 POC Glucose 170 H 144 H Microbiology 08/19/19 18:00 Stool - Liquid Stool Culture - Final Pseudomonas aeruginosa 08/19/19 18:00 Stool - Liquid Campylobacter Antigen Assay - Final 08/19/19 18:00 Stool - Liquid Shiga Toxin Test - Final 08/19/19 18:00 Stool C. difficile GDH Antigen & Toxins - Final 08/19/19 12:42 Urine Straight Catheter Urine Culture - Final NO GROWTH AT 48 HOURS 08/19/19 12:54 Venous blood - Right Hand Blood Culture - Preliminary NO GROWTH AT 48 HOURS 08/19/19 12:38 Venous blood - Right Arm Blood Culture - Preliminary NO GROWTH AT 48 HOURS Laboratory Tests 08/19/19 08/20/19 08/26/19 16:02 15:40 01:43 WBC Hgb Potassium Phosphorus Magnesium 1.5 L AST ALT Albumin COVID-19 PCR Not Detected Not Detected 08/26/19 08/27/19 08/27/19 01:43 04:54 04:54 WBC Hgb Potassium 3.2 L Phosphorus 1.6 L 2.2 L Magnesium AST ALT Albumin COVID-19 PCR 08/28/19 09/18/19 09/19/19 03:30 22:15 03:44 WBC 15.2 H Hgb 12.4 L Potassium Phosphorus 2.5 3.1 Magnesium 1.7 1.6 AST 43 H ALT 98 H Albumin 2.9 L COVID-19 PCR 09/19/19 03:44 WBC 12.7 H Hgb 12.0 L Potassium Phosphorus Magnesium AST ALT Albumin COVID-19 PCR Radiology Reviewed by me: Yes (KUB - persistent post-op ileus) Hospitalist ROS - Medication Medications: Active Medications Generic Name Dose Route Start Last Admin Trade Name Freq PRN Reason Stop Dose Admin Acetaminophen 1,000 mg 09/22/19 00:01 09/22/19 03:38 Tylenol PO 1,000 mg Q6H PRN Administration Headache/Fever or Pain Albuterol Sulfate 2.5 mg 09/18/19 19:00 09/23/19 13:20 Ventolin NEB 2.5 mg [id number] KATHYA Administration Carvedilol 6.25 mg 09/04/19 17:00 09/23/19 08:47 Coreg PO 6.25 mg BID-WM KATHYA Administration Enoxaparin Sodium 40 mg 09/20/19 09:00 09/23/19 08:48 Lovenox SC 40 mg 0900 KATHYA Administration Fluoxetine HCl 40 mg 09/18/19 09:00 09/23/19 08:47 Prozac PO 40 mg DAILY KATHYA Administration Insulin Glargine 5 units/ 0.05 mls @ 0 mls/hr 09/04/19 09:00 09/23/19 08:49 Miscellaneous Medication SC 0.05 mls QAM KATHYA Administration Sterile Water 200 ml/ Sodium 1,770.7021 mls @ 73.779 mls/hr 09/10/19 22:00 22:48 Acetate 40 meq/ Sodium IV 09/23/19 21:59 1,770.7021 mls Chloride 60 meq/ Potassium INF KATHYA Administration Chloride 80 meq/ Potassium Phosphate 30 mmol/ Calcium Gluconate 10 meq/ Magnesium Sulfate 10 meq/ Multivitamins 10 ml/ Chromium/Copper/ Manganese/Seleni/Zn 1 ml/ Insulin Human Regular 50 units / Amino Acids/ Dextrose/Water/ Fat Emulsion Intravenous Lactated Ringer's 1,000 mls @ 50 mls/hr 09/19/19 08:22 09/23/19 05:41 Lactated Ringer's IV 1,000 mls .Q20H KATHYA Administration Insulin Human Lispro 0 units 08/19/19 15:39 09/22/19 05:40 Humalog SC 4 unit .MODERATE SLIDING SC PRN Administration Moderate Correctional Scale Insulin Human Lispro 0 units 08/19/19 15:39 09/10/19 19:47 Humalog SC 2 units .BEDTIME SLIDING SC PRN Administration Bedtime Correctional Scale Ketorolac Tromethamine 15 mg 09/19/19 09:32 09/23/19 12:58 Toradol IVP 09/24/19 09:33 15 mg Q6H PRN Administration Pain Melatonin 3 mg 09/17/19 21:00 09/22/19 20:57 Melatonin PO 3 mg HS KATHYA Administration Nitroglycerin 1 patch 08/26/19 09:00 09/23/19 08:48 Nitro-Dur 0.4mg/Hr Patch TD 1 patch DAILY KATHYA Administration Ondansetron HCl 4 mg 08/19/19 15:39 09/21/19 09:36 Zofran IVP 4 mg Q6H PRN Administration Nausea/Vomiting Pantoprazole Sodium 40 mg 08/28/19 09:00 09/23/19 08:49 Protonix IVP 40 mg DAILY KATHYA Administration Remove Nitro Patch 0 each 09/09/19 21:00 09/22/19 20:57 TD 1 each 2100 KATHYA Administration Sodium Chloride 10 ml 08/19/19 15:39 09/22/19 08:59 Flush - Normal Saline IVF 10 ml PRN PRN Administration Saline Flush - Exam General Appearance: awake alert, ill appearing Eye: PERRL, anicteric sclera ENT: normocephalic atraumatic, no oropharyngeal lesions Neck: supple, symmetric, no JVD, no thyromegaly, no lymphadenopathy Heart: RRR, no gallops, no rubs, normal peripheral pulses Heart - other findings: S1, S2 Respiratory: no ronchi, no tachypnea Respiratory - other findings: diminished in bases Gastrointestinal: no palpable masses, tender to palpation, distended, diminished bowl sounds Extremities: no cyanosis, no clubbing, no edema Skin: normal turgor, no lesions Neurological: cranial nerve grossly intact, no new deficit Musculoskeletal: generalized weakness Psychiatric: A&O x 3, flat affect Hosp A/P (1) SBO (small bowel obstruction) Code(s): K56.609 - UNSP INTESTNL OBST, UNSP TO PARTIAL VERSUS COMPLETE OBST Status: Acute Plan: s/p R hemicolectomy with ileo-colonic anastomosis POD #5, check KUB today, continue supportive mgmt, OOB/ambulate, persistent post-op ileus on KUB (2) Hypokalemia Code(s): E87.6 - HYPOKALEMIA Status: Acute Plan: KCL supplementation, serial K+ monitoring (3) Atrial fibrillation with RVR Code(s): I48.91 - UNSPECIFIED ATRIAL FIBRILLATION Status: Chronic (4) Hypophosphatemia Code(s): E83.39 - OTHER DISORDERS OF PHOSPHORUS METABOLISM Status: Acute (5) Sepsis Code(s): A41.9 - SEPSIS, UNSPECIFIED ORGANISM Status: Acute Qualifiers: Sepsis type: sepsis due to unspecified organism Sepsis acute organ dysfunction status: without acute organ dysfunction Qualified Code(s): A41.9 - Sepsis, unspecified organism (6) Chronic anticoagulation Code(s): Z79.01 - NETWORK CONTRACT MANAGER (CURRENT) USE OF ANTICOAGULANTS Status: Chronic - Plan PT/OT, criminal justice social worker, incentive spirometry, out of bed/ambulate, DVT proph w/ SCDs Stable currently Continue routine post-op care POD #5 TF's as tolerated Nutritional support with TPN Check KUB today Rehab vs NH options OOB with PT, non-compliant AM lab: BMP, H/H
--- NOTE | 2019-09-23 17:41 | PRG ---
DATE OF SERVICE: 09/23/2019 SUBJECTIVE: Mr. Werner is doing well. NG tube has trophic tube feeding. OBJECTIVE: VITAL SIGNS: Temperature 98.7 degrees, pulse 75, blood pressure 106/77. LUNGS: Clear to auscultation. CARDIAC: Regular rate and rhythm without murmur or gallop. ABDOMEN: Soft, slightly distended, tympanitic. Nurses report a very large bowel movement today. Bowel sounds present. : Urine output is good. LABORATORY DATA: White count 11.5 yesterday, 8.5 hemoglobin yesterday. Basic metabolic profile normal today. BUN 26, glucose 130. ASSESSMENT AND PLAN: Resolving ileus postoperatively. Continue NG tube trophic feedings. Check abdominal x-ray. Consider removing NG tube and advancing diet soon. Job ID: [id number]
[2019-09-23] MEDS: HumaLOG 300 UNITS/3 ML VIAL SC PRN (17:48)
--- NOTE | 2019-09-23 17:49 | RAD ---
KUB INDICATION: Status post right hemicolectomy with ileocolonic anastomosis COMPARISON: September 17, 2019 FINDINGS: Bowel gas: There is diffuse distention of small and large bowel with gas that appears similar appeari ng. There are new midline skin teja consistent patient's history of prior colectomy. Gastrostomy tube is seen within the upper abdomen. Lung bases: Clear. Additional findings: No suspicious calcification demonstrated. Osseous structures: No acute osseous abnormality is demonstrated. IMPRESSION: 1. Findings is consistent with a persistent postoperative diffuse ileus. 2. Gastrostomy tube projecting within the upper abdomen near the region of the gastric antrum.
[2019-09-23] MEDS: Melatonin 3 MG TAB PO SCH (21:51)
[2019-09-23] MEDS: Acetaminophen 500 MG TAB PO PRN (21:51)
[2019-09-23] MEDS: [UNRECOGNIZED DRUG - OTHER] IV SCH (21:51)
[2019-09-23] MEDS: STERILE WATER IV SCH (21:51)
[2019-09-23] MEDS: SODIUM ACETATE IV SCH (21:51)
[2019-09-23] MEDS ORDERED: [UNRECOGNIZED DRUG - OTHER] IV SCH (22:00)
[2019-09-23] MEDS ORDERED: SODIUM ACETATE IV SCH (22:00)
[2019-09-23] MEDS ORDERED: STERILE WATER IV SCH (22:00)
[2019-09-23] MEDS: REMOVE NITRO PATCH TD SCH (23:23)
[2019-09-24] MEDS: Albuterol Sulfate 2.5 mg/3 ml Neb NEB SCH ×5 (01:10→23:51)
[2019-09-24] MEDS: HumaLOG 300 UNITS/3 ML VIAL SC PRN ×3 (06:14→19:02)
[2019-09-24 06:43] LABS: Hemoglobin 8.5 g/dL (14.0-18.0); Platelet Count 142 thou/uL (130-400)
[2019-09-24 07:06] LABS: Anion Gap 11 mmol/L (10-20); BUN (Urea Nitrogen) 24 mg/dL (8.4-25.7); Calc. Creatinine Clearance 131 mL/min (70-130); Calcium 7.9 mg/dL (7.8-10.44); Carbon Dioxide 23 mmol/L (23-31); Chloride 112 mmol/L (98-107); Estimated GFR-MDRD Greater than 90; Glucose 133 mg/dL (83-110); Potassium 3.6 mmol/L (3.5-5.1); Sodium 142 mmol/L (136-145)
[2019-09-24] MEDS: Pantoprazole 40 MG VIAL IVP SCH (09:47)
[2019-09-24] MEDS: Carvedilol 6.25 MG TAB PO SCH ×2 (09:48→17:18)
[2019-09-24] MEDS: FLUoxetine HCl 20 MG CAP PO SCH (09:48)
[2019-09-24] MEDS: Nitroglycerin 0.4mg/Hour PATCH TD SCH (09:48)
[2019-09-24] MEDS: Insulin Glargine 5 UNITS in Pre-Filled Syringe 1 EACH SC SCH (09:48)
[2019-09-24] MEDS ORDERED: Activase 2 MG VIAL CATH SCH (13:00)
[2019-09-24] MEDS: Acetaminophen 500 MG TAB PO PRN (15:43)
--- NOTE | 2019-09-24 16:18 | PDOC.HOSPP ---
- Subjective Encounter Date: 09/24/19 Encounter Time: 16:15 Subjective: f/u for SBO/post-op ileus s/p R hemicolectomy and ileo-colonic anastomosis POD # 6. Remains on trophic TF's and continues with TPN. Abd feels full and tired of being in hospital. - Objective Vital Signs & Weight: Vital Signs (12 hours) Temp Pulse Resp BP BP Pulse Ox 09/24/19 15:44 98.4 F 77 20 166/86 H 95 09/24/19 13:18 71 16 95 09/24/19 11:40 98.3 F 76 16 174/76 H 96 09/24/19 07:42 97.9 F 77 16 163/87 H 97 09/24/19 07:27 74 18 96 Weight Admit Weight 226 lb 14.4 oz Weight 224 lb Most Recent Monitor Data Heart Rate from ECG 73 NIBP 111/63 NIBP BP-Mean 79 Respiration from ECG 18 SpO2 100 I&O: 09/23/19 09/24/19 09/25/19 06:59 06:59 06:59 Intake Total 1724.4 1476 Output Total 1000 1500 Balance 724.4 -24 Result Diagrams: 09/24/19 06:30 09/24/19 06:30 Additional Labs: Accuchecks 09/24/19 09/24/19 09/23/19 11:49 05:40 23:43 POC Glucose 152 H 160 H 161 H 09/23/19 09/23/19 09/23/19 20:34 17:47 12:01 POC Glucose 145 H 164 H 174 H Microbiology 08/19/19 18:00 Stool - Liquid Stool Culture - Final Pseudomonas aeruginosa 08/19/19 18:00 Stool - Liquid Campylobacter Antigen Assay - Final 08/19/19 18:00 Stool - Liquid Shiga Toxin Test - Final 08/19/19 18:00 Stool C. difficile GDH Antigen & Toxins - Final 08/19/19 12:42 Urine Straight Catheter Urine Culture - Final NO GROWTH AT 48 HOURS 08/19/19 12:54 Venous blood - Right Hand Blood Culture - Preliminary NO GROWTH AT 48 HOURS 08/19/19 12:38 Venous blood - Right Arm Blood Culture - Preliminary NO GROWTH AT 48 HOURS Laboratory Tests 08/19/19 08/20/19 08/26/19 16:02 15:40 01:43 WBC Hgb Potassium Phosphorus Magnesium 1.5 L AST ALT Albumin COVID-19 PCR Not Detected Not Detected 08/26/19 08/27/19 08/27/19 01:43 04:54 04:54 WBC Hgb Potassium 3.2 L Phosphorus 1.6 L 2.2 L Magnesium AST ALT Albumin COVID-19 PCR 08/28/19 09/18/19 09/19/19 03:30 22:15 03:44 WBC 15.2 H Hgb 12.4 L Potassium Phosphorus 2.5 3.1 Magnesium 1.7 1.6 AST 43 H ALT 98 H Albumin 2.9 L COVID-19 PCR 09/19/19 03:44 WBC 12.7 H Hgb 12.0 L Potassium Phosphorus Magnesium AST ALT Albumin COVID-19 PCR Radiology Reviewed by me: Yes (KUB - persistent post-op ileus) Hospitalist ROS - Medication Medications: Active Medications Generic Name Dose Route Start Last Admin Trade Name Freq PRN Reason Stop Dose Admin Acetaminophen 1,000 mg 09/22/19 00:01 09/24/19 15:43 Tylenol PO 1,000 mg Q6H PRN Administration Headache/Fever or Pain Albuterol Sulfate 2.5 mg 09/18/19 19:00 09/24/19 13:18 Ventolin NEB 2.5 mg [id number] KATHYA Administration Alteplase, Recombinant 2 mg 09/24/19 13:00 09/24/19 15:43 Cathflo CATH 09/24/19 21:00 2 mg NOW KATHYA Administration Fluoxetine HCl 40 mg 09/18/19 09:00 09/24/19 09:48 Prozac PO 40 mg DAILY KATHYA Administration Insulin Glargine 5 units/ 0.05 mls @ 0 mls/hr 09/04/19 09:00 09/24/19 09:48 Miscellaneous Medication SC 0.05 mls QAM KATHYA Administration Lactated Ringer's 1,000 mls @ 50 mls/hr 09/19/19 08:22 09/23/19 22:09 Lactated Ringer's IV 1,000 mls .Q20H KATHYA Administration Sterile Water 200 ml/ Sodium 1,770.7021 mls @ 73.779 mls/hr 09/23/19 22:00 21:51 Acetate 40 meq/ Sodium IV 1,770.7021 mls Chloride 60 meq/ Potassium 2200 KAHTYA Administration Chloride 80 meq/ Potassium Phosphate 30 mmol/ Calcium Gluconate 10 meq/ Magnesium Sulfate 10 meq/ Multivitamins 10 ml/ Chromium/Copper/ Manganese/Seleni/Zn 1 ml/ Insulin Human Regular 50 units / Amino Acids/ Dextrose/Water/ Fat Emulsion Intravenous Insulin Human Lispro 0 units 08/19/19 15:39 09/24/19 12:47 Humalog SC 2 unit .MODERATE SLIDING SC PRN Administration Moderate Correctional Scale Insulin Human Lispro 0 units 08/19/19 15:39 09/10/19 19:47 Humalog SC 2 units .BEDTIME SLIDING SC PRN Administration Bedtime Correctional Scale Melatonin 3 mg 09/17/19 21:00 09/23/19 21:51 Melatonin PO 3 mg HS KATHYA Administration Nitroglycerin 1 patch 08/26/19 09:00 09/24/19 09:48 Nitro-Dur 0.4mg/Hr Patch TD 1 patch DAILY KATHYA Administration Ondansetron HCl 4 mg 08/19/19 15:39 09/21/19 09:36 Zofran IVP 4 mg Q6H PRN Administration Nausea/Vomiting Pantoprazole Sodium 40 mg 08/28/19 09:00 09/24/19 09:47 Protonix IVP 40 mg DAILY KATHYA Administration Remove Nitro Patch 0 each 09/09/19 21:00 09/23/19 23:23 TD Not Given 2100 KATHYA Sodium Chloride 10 ml 08/19/19 15:39 09/24/19 09:48 Flush - Normal Saline IVF 10 ml PRN PRN Administration Saline Flush - Exam General Appearance: NAD, awake alert Eye: PERRL, anicteric sclera ENT: normocephalic atraumatic, no oropharyngeal lesions Neck: supple, symmetric, no JVD, no thyromegaly, no lymphadenopathy Heart: RRR, no murmur, no gallops, no rubs, normal peripheral pulses Heart - other findings: S1, S2 Respiratory: CTAB, no wheezes, no rales, no ronchi Respiratory - other findings: diminished in bases Gastrointestinal: no guarding, tender to palpation, distended, diminished bowl sounds Extremities: no cyanosis, no clubbing, no edema Skin: normal turgor, no lesions Neurological: cranial nerve grossly intact, no new deficit Musculoskeletal: normal tone, generalized weakness Psychiatric: A&O x 3, flat affect Hosp A/P (1) SBO (small bowel obstruction) Code(s): K56.609 - UNSP INTESTNL OBST, UNSP TO PARTIAL VERSUS COMPLETE OBST Status: Acute Plan: Post-op ileus, continue NGT with trophic feeds, OOB/ambulate, bowel regimen (2) Hypokalemia Code(s): E87.6 - HYPOKALEMIA Status: Acute (3) Atrial fibrillation with RVR Code(s): I48.91 - UNSPECIFIED ATRIAL FIBRILLATION Status: Chronic (4) Hypophosphatemia Code(s): E83.39 - OTHER DISORDERS OF PHOSPHORUS METABOLISM Status: Acute (5) Sepsis Code(s): A41.9 - SEPSIS, UNSPECIFIED ORGANISM Status: Acute Qualifiers: Sepsis type: sepsis due to unspecified organism Sepsis acute organ dysfunction status: without acute organ dysfunction Qualified Code(s): A41.9 - Sepsis, unspecified organism (6) Chronic anticoagulation Code(s): Z79.01 - SENIOR LIVING (CURRENT) USE OF ANTICOAGULANTS Status: Chronic - Plan PT/OT, social security benefits interviewer, incentive spirometry, out of bed/ambulate, DVT proph w/ SCDs Stable currently Continue routine post-op care POD #6 TF's as tolerated Nutritional support with TPN Increase Coreg 12.5mg BID Rehab vs NH options OOB with PT, non-compliant
[2019-09-24] MEDS: Rivaroxaban 10 MG TAB PO SCH (17:18)
--- NOTE | 2019-09-24 17:38 | PRG ---
DATE OF SERVICE: 09/24/2019 SUBJECTIVE: Andrae Simeon NG tube overnight put out 1000. He was placed back to suction yesterday as his abdomen was noted to be more distended and x-rays confirmed this. He had gas in both the large and small bowel. He did have bowel movements yesterday. He states he feels somewhat better today. He has been in a neuro chair. OBJECTIVE: VITAL SIGNS: Temperature 98.4 degrees, heart rate 77, and blood pressure 166/86. LUNGS: Clear to auscultation. CARDIAC: Regular rate and rhythm without murmur or gallop. ABDOMEN: Soft and nontender. Surgical wound looks good. Bowel sounds present, possibly hyperactive. LABORATORY DATA: Hemoglobin 8.5. Basic metabolic profile stable. Accu-Cheks 150 to 160. ASSESSMENT AND PLAN: Resolving ileus. Continue NG tube for now. Observe output. Repeat abdominal x-rays in the morning. Consider removal of NG tube soon. He will need to go to rehab postoperative once bowel function recovers. Job ID: [id number]
[2019-09-24] MEDS: Tamsulosin HCl 0.4 MG CAP PO SCH (20:35)
[2019-09-24] MEDS: REMOVE NITRO PATCH TD SCH (20:35)
[2019-09-24] MEDS: Melatonin 3 MG TAB PO SCH (20:35)
[2019-09-24] MEDS: [UNRECOGNIZED DRUG - OTHER] IV SCH (22:13)
[2019-09-24] MEDS: SODIUM ACETATE IV SCH (22:13)
[2019-09-24] MEDS: STERILE WATER IV SCH (22:13)
[2019-09-25] MEDS: Lactated Ringer's 1,000 ML IV SCH ×2 (05:29→11:31)
[2019-09-25] MEDS: Albuterol Sulfate 2.5 mg/3 ml Neb NEB SCH ×3 (06:33→19:40)
[2019-09-25] MEDS: FLUoxetine HCl 20 MG CAP PO SCH (08:33)
[2019-09-25] MEDS: Carvedilol 6.25 MG TAB PO SCH ×2 (08:34→18:10)
[2019-09-25] MEDS: Nitroglycerin 0.4mg/Hour PATCH TD SCH (08:34)
[2019-09-25] MEDS: Insulin Glargine 5 UNITS in Pre-Filled Syringe 1 EACH SC SCH (08:35)
[2019-09-25] MEDS: Pantoprazole 40 MG VIAL IVP SCH (08:35)
[2019-09-25] MEDS: Acetaminophen 500 MG TAB PO PRN ×2 (11:29→18:14)
--- NOTE | 2019-09-25 12:21 | RAD ---
Abdominal radiographs: 10/05/2019 COMPARISON: 09/23/2019 HISTORY: Repeat evaluate post operative ileus FINDINGS: Cutaneous teja are noted consistent with recent abdominal surgery including hemicolectom y with ileocolonic anastomosis. There is gaseous distention of bowel within the abdomen/pelvis, primarily central and left-sided, suggesting a combination of dilated small bowel and gas-filled colo n. Nasogastric tube curls in the epigastric region. Decubitus imaging demonstrates air-fluid levels within dilated small bowel and colon. Possible small volume free intraperitoneal air noted on decubit us imaging consistent with recent postoperative status. IMPRESSION: Persistent prominent gaseous distention of large and small bowel within the abdomen/pelvi s, evidence of ileus. Continued follow-up to resolution advised. Postoperative changes.
[2019-09-25] MEDS: HumaLOG 300 UNITS/3 ML VIAL SC PRN ×2 (13:16→18:15)
--- NOTE | 2019-09-25 14:44 | PRG ---
DATE OF SERVICE: 09/25/2019 SUBJECTIVE: Andrae Werner is doing well today. He has had very little out of his NG tube today, although 600 last night. Abdominal x-rays reveal ileus type pattern, dilated both small and large bowel. He had a bowel movement yesterday, more than one. He is passing flatus. NG tube is in his distal antrum, possible proximal duodenum. OBJECTIVE: VITAL SIGNS: Temperature 98.5 degrees, pulse 104, and blood pressure 151/81. HEAD, EARS, EYES, NOSE AND THROAT: Unremarkable. LUNGS: Clear to auscultation. CARDIAC: Regular rate and rhythm without murmur or gallop. ABDOMEN: Less distended, less tympanitic, although baseline protuberance. is present to verify this. LABORATORY DATA: No CBC today. No basic met today. Accu-Cheks normal. ASSESSMENT/PLAN: 1. The patient is doing well. We would recommend that we discontinue his NG tube, start him on clear liquids, discontinue his Velasquez, advance his diet slowly, perhaps full liquids tomorrow. If he tolerates things, we will add Reglan elixir to help the GI motility and gastric emptying. 2. Deconditioning. Hopefully can send to rehab probably early next week. Job ID: [id number]
[2019-09-25] MEDS: Metoclopramide 10 MG/10 ML UDCUP PO SCH ×2 (18:10→20:47)
[2019-09-25] MEDS: Rivaroxaban 10 MG TAB PO SCH (18:10)
--- NOTE | 2019-09-25 18:56 | PDOC.HOSPP ---
- Subjective Encounter Date: 09/25/19 Encounter Time: 18:00 Subjective: f/u for SBO and s/p R hemicolectomy with ileo-colonic anastomosis. NGT d/c'd and tolerating liquids. Still receiving TPN. - Objective Vital Signs & Weight: Vital Signs (12 hours) Temp Pulse Resp BP Pulse Ox 09/25/19 15:38 98.7 F 77 14 148/77 H 94 L 09/25/19 13:23 104 H 18 96 09/25/19 11:49 98.5 F 76 16 151/81 H 96 09/25/19 11:10 98.3 F 77 12 106/68 95 09/25/19 08:03 98.2 F 85 14 174/76 H 95 Weight Admit Weight 226 lb 14.4 oz Weight 224 lb Most Recent Monitor Data Heart Rate from ECG 73 NIBP 111/63 NIBP BP-Mean 79 Respiration from ECG 18 SpO2 100 I&O: 09/24/19 09/25/19 09/26/19 06:59 06:59 06:59 Intake Total 1476 2712 Output Total 1500 1750 525 Balance -24 962 -525 Result Diagrams: 09/24/19 06:30 09/24/19 06:30 Additional Labs: Accuchecks 09/25/19 09/25/19 09/25/19 18:11 11:37 05:42 POC Glucose 174 H 164 H 144 H 09/24/19 23:23 POC Glucose 135 H Microbiology 08/19/19 18:00 Stool - Liquid Stool Culture - Final Pseudomonas aeruginosa 08/19/19 18:00 Stool - Liquid Campylobacter Antigen Assay - Final 08/19/19 18:00 Stool - Liquid Shiga Toxin Test - Final 08/19/19 18:00 Stool C. difficile GDH Antigen & Toxins - Final 08/19/19 12:42 Urine Straight Catheter Urine Culture - Final NO GROWTH AT 48 HOURS 08/19/19 12:54 Venous blood - Right Hand Blood Culture - Preliminary NO GROWTH AT 48 HOURS 08/19/19 12:38 Venous blood - Right Arm Blood Culture - Preliminary NO GROWTH AT 48 HOURS Laboratory Tests 08/19/19 08/20/19 08/26/19 16:02 15:40 01:43 WBC Hgb Potassium Phosphorus Magnesium 1.5 L AST ALT Albumin COVID-19 PCR Not Detected Not Detected 08/26/19 08/27/19 08/27/19 01:43 04:54 04:54 WBC Hgb Potassium 3.2 L Phosphorus 1.6 L 2.2 L Magnesium AST ALT Albumin COVID-19 PCR 08/28/19 09/18/19 09/19/19 03:30 22:15 03:44 WBC 15.2 H Hgb 12.4 L Potassium Phosphorus 2.5 3.1 Magnesium 1.7 1.6 AST 43 H ALT 98 H Albumin 2.9 L COVID-19 PCR 09/19/19 03:44 WBC 12.7 H Hgb 12.0 L Potassium Phosphorus Magnesium AST ALT Albumin COVID-19 PCR Radiology Reviewed by me: Yes (KUB - persistent ileus) Hospitalist ROS - Medication Medications: Active Medications Generic Name Dose Route Start Last Admin Trade Name Freq PRN Reason Stop Dose Admin Acetaminophen 1,000 mg 09/22/19 00:01 09/25/19 18:14 Tylenol PO 1,000 mg Q6H PRN Administration Headache/Fever or Pain Albuterol Sulfate 2.5 mg 09/18/19 19:00 09/25/19 13:23 Ventolin NEB 2.5 mg [id number] KATHYA Administration Carvedilol 12.5 mg 09/24/19 17:00 09/25/19 18:10 Coreg PO 12.5 mg BID-WM KATHYA Administration Fluoxetine HCl 40 mg 09/18/19 09:00 09/25/19 08:33 Prozac PO 40 mg DAILY KATHYA Administration Insulin Glargine 5 units/ 0.05 mls @ 0 mls/hr 09/04/19 09:00 09/25/19 08:35 Miscellaneous Medication SC 0.05 mls QAM KATHYA Administration Lactated Ringer's 1,000 mls @ 50 mls/hr 09/19/19 08:22 09/25/19 11:31 Lactated Ringer's IV 1,000 mls .Q20H KATHYA Administration Sterile Water 200 ml/ Sodium 1,770.7021 mls @ 73.779 mls/hr 09/23/19 22:00 22:13 Acetate 40 meq/ Sodium IV 1,770.7021 mls Chloride 60 meq/ Potassium 2200 KATHYA Administration Chloride 80 meq/ Potassium Phosphate 30 mmol/ Calcium Gluconate 10 meq/ Magnesium Sulfate 10 meq/ Multivitamins 10 ml/ Chromium/Copper/ Manganese/Seleni/Zn 1 ml/ Insulin Human Regular 50 units / Amino Acids/ Dextrose/Water/ Fat Emulsion Intravenous Insulin Human Lispro 0 units 08/19/19 15:39 09/25/19 18:15 Humalog SC 2 unit .MODERATE SLIDING SC PRN Administration Moderate Correctional Scale Insulin Human Lispro 0 units 08/19/19 15:39 09/10/19 19:47 Humalog SC 2 units .BEDTIME SLIDING SC PRN Administration Bedtime Correctional Scale Melatonin 3 mg 09/17/19 21:00 09/24/19 20:35 Melatonin PO 3 mg HS KATHYA Administration Metoclopramide HCl 10 mg 09/25/19 17:00 09/25/19 18:10 Reglan PO 10 mg ACHS KATHYA Administration Nitroglycerin 1 patch 08/26/19 09:00 09/25/19 08:34 Nitro-Dur 0.4mg/Hr Patch TD 1 patch DAILY KATHYA Administration Ondansetron HCl 4 mg 08/19/19 15:39 09/21/19 09:36 Zofran IVP 4 mg Q6H PRN Administration Nausea/Vomiting Pantoprazole Sodium 40 mg 08/28/19 09:00 09/25/19 08:35 Protonix IVP 40 mg DAILY KATHYA Administration Remove Nitro Patch 0 each 09/09/19 21:00 09/24/19 20:35 TD 1 each 2100 KATHYA Administration Rivaroxaban 20 mg 09/24/19 18:00 09/25/19 18:10 Xarelto PO 20 mg 1800 KATHYA Administration Sodium Chloride 10 ml 08/19/19 15:39 09/24/19 09:48 Flush - Normal Saline IVF 10 ml PRN PRN Administration Saline Flush Tamsulosin HCl 0.4 mg 09/24/19 21:00 09/24/19 20:35 Flomax PO 0.4 mg HS KATHYA Administration - Exam General Appearance: NAD, awake alert Eye: PERRL, anicteric sclera ENT: normocephalic atraumatic, no oropharyngeal lesions Neck: supple, symmetric, no JVD, no thyromegaly, no lymphadenopathy Heart: RRR, no gallops, no rubs, normal peripheral pulses Heart - other findings: S1, S2 Respiratory: CTAB, no ronchi Respiratory - other findings: diminished in bases Gastrointestinal: soft, non-tender, diminished bowl sounds Gastrointestinal - other findings: surgical incisions intact Extremities: no cyanosis, no clubbing, 1+ LE edema Skin: normal turgor Neurological: cranial nerve grossly intact, no new deficit Musculoskeletal: normal tone, generalized weakness Psychiatric: A&O x 3, flat affect Hosp A/P (1) SBO (small bowel obstruction) Code(s): K56.609 - UNSP INTESTNL OBST, UNSP TO PARTIAL VERSUS COMPLETE OBST Status: Acute Plan: s/p R hemicolectomy POD #7, OOB/ambulate, bowel regimen, clear liquid diet, TPN (2) Hypokalemia Code(s): E87.6 - HYPOKALEMIA Status: Acute (3) Atrial fibrillation with RVR Code(s): I48.91 - UNSPECIFIED ATRIAL FIBRILLATION Status: Chronic (4) Hypophosphatemia Code(s): E83.39 - OTHER DISORDERS OF PHOSPHORUS METABOLISM Status: Acute (5) Sepsis Code(s): A41.9 - SEPSIS, UNSPECIFIED ORGANISM Status: Acute Qualifiers: Sepsis type: sepsis due to unspecified organism Sepsis acute organ dysfunction status: without acute organ dysfunction Qualified Code(s): A41.9 - Sepsis, unspecified organism (6) Chronic anticoagulation Code(s): Z79.01 - CARE HOME (CURRENT) USE OF ANTICOAGULANTS Status: Chronic - Plan 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
[2019-09-25] MEDS: Tamsulosin HCl 0.4 MG CAP PO SCH (20:47)
[2019-09-25] MEDS: Melatonin 3 MG TAB PO SCH (20:47)
[2019-09-25] MEDS: REMOVE NITRO PATCH TD SCH (22:08)
[2019-09-25] MEDS: STERILE WATER IV SCH (22:09)
[2019-09-25] MEDS: [UNRECOGNIZED DRUG - OTHER] IV SCH (22:09)
[2019-09-25] MEDS: SODIUM ACETATE IV SCH (22:09)
[2019-09-26] MEDS: Albuterol Sulfate 2.5 mg/3 ml Neb NEB SCH ×4 (00:10→18:50)
[2019-09-26] MEDS: Acetaminophen 500 MG TAB PO PRN ×2 (02:22→17:28)
[2019-09-26] MEDS: Metoclopramide 10 MG/10 ML UDCUP PO SCH ×5 (03:04→20:46)
[2019-09-26 03:57] LABS: Hemoglobin 7.9 g/dL (14.0-18.0)
[2019-09-26] MEDS: Pantoprazole 40 MG VIAL IVP SCH (08:27)
[2019-09-26] MEDS: FLUoxetine HCl 20 MG CAP PO SCH (08:27)
[2019-09-26] MEDS: Nitroglycerin 0.4mg/Hour PATCH TD SCH (08:28)
[2019-09-26] MEDS: Carvedilol 6.25 MG TAB PO SCH ×2 (08:28→17:28)
[2019-09-26] MEDS: Insulin Glargine 5 UNITS in Pre-Filled Syringe 1 EACH SC SCH (08:28)
[2019-09-26] MEDS: HumaLOG 300 UNITS/3 ML VIAL SC PRN (11:54)
--- NOTE | 2019-09-26 17:17 | PRG ---
DATE OF SERVICE: 09/26/2019 SUBJECTIVE: The patient is feeling better. He wants to go home. He has not had any nausea or vomiting. He has been tolerating full liquids. Velasquez catheter is out. He is urinating without problems. OBJECTIVE: VITAL SIGNS: Temperature 97.6 degrees, heart rate 87, blood pressure 166/88. HEAD, EARS EYES, NOSE AND THROAT: Unremarkable. LUNGS: Clear to auscultation. CARDIAC: Regular rate and rhythm without murmur or gallop. ABDOMEN: Soft, distended, slightly protuberant, is baseline, but slightly tympanitic. He has had bowel movements. LABORATORY DATA: Accu-Cheks 130 to 168. ASSESSMENT AND PLAN: The patient is doing well. Last operation was 09/18/2019. [place] probably can be removed upon discharge. Would leave him at this time. Would continue full liquids if he tolerates. If he does well over the weekend, perhaps he can be advanced to a diabetic diet. Dr. Trujillo is covering over the weekend. Hopefully, he can be transferred to rehab next week. Slowly advance his diet. Pending clinical course and abdominal exam, hoping to resolve his tympany. He was started on Reglan elixir to help GI motility and gastric emptying. Job ID: [id number]
--- NOTE | 2019-09-26 17:26 | PDOC.HOSPP ---
- Subjective Encounter Date: 09/26/19 Encounter Time: 17:10 Subjective: f/u for post-op ileus after SBO with R hemicolectomy and ileo-colonic anastamosis s/p NGT. Tolerating full liquids currently. Plan for rehab when stabilized and tolerating po intake. - Objective Vital Signs & Weight: Vital Signs (12 hours) Temp Pulse Resp BP BP Pulse Ox 09/26/19 15:09 97.6 F 87 18 166/88 H 94 L 09/26/19 14:30 78 16 94 L 09/26/19 10:49 98.6 F 78 18 158/83 H 96 09/26/19 10:28 78 161/92 H 09/26/19 08:28 96 09/26/19 07:23 98 F 76 18 190/104 H 96 09/26/19 06:55 74 16 95 Weight Admit Weight 226 lb 14.4 oz Weight 224 lb Most Recent Monitor Data Heart Rate from ECG 73 NIBP 111/63 NIBP BP-Mean 79 Respiration from ECG 18 SpO2 100 I&O: 09/25/19 09/26/19 09/27/19 06:59 06:59 06:59 Intake Total 2712 1998 Output Total 1750 775 Balance 962 1224 Result Diagrams: 09/26/19 03:40 09/24/19 06:30 Additional Labs: Accuchecks 09/26/19 09/26/19 09/25/19 10:52 05:56 23:48 POC Glucose 168 H 166 H 134 H 09/25/19 18:11 POC Glucose 174 H Microbiology 08/19/19 18:00 Stool - Liquid Stool Culture - Final Pseudomonas aeruginosa 08/19/19 18:00 Stool - Liquid Campylobacter Antigen Assay - Final 08/19/19 18:00 Stool - Liquid Shiga Toxin Test - Final 08/19/19 18:00 Stool C. difficile GDH Antigen & Toxins - Final 08/19/19 12:42 Urine Straight Catheter Urine Culture - Final NO GROWTH AT 48 HOURS 08/19/19 12:54 Venous blood - Right Hand Blood Culture - Preliminary NO GROWTH AT 48 HOURS 08/19/19 12:38 Venous blood - Right Arm Blood Culture - Preliminary NO GROWTH AT 48 HOURS Laboratory Tests 08/19/19 08/20/19 08/26/19 16:02 15:40 01:43 WBC Hgb Potassium Phosphorus Magnesium 1.5 L AST ALT Albumin COVID-19 PCR Not Detected Not Detected 08/26/19 08/27/19 08/27/19 01:43 04:54 04:54 WBC Hgb Potassium 3.2 L Phosphorus 1.6 L 2.2 L Magnesium AST ALT Albumin COVID-19 PCR 08/28/19 09/18/19 09/19/19 03:30 22:15 03:44 WBC 15.2 H Hgb 12.4 L Potassium Phosphorus 2.5 3.1 Magnesium 1.7 1.6 AST 43 H ALT 98 H Albumin 2.9 L COVID-19 PCR 09/19/19 03:44 WBC 12.7 H Hgb 12.0 L Potassium Phosphorus Magnesium AST ALT Albumin COVID-19 PCR Hospitalist ROS - Medication Medications: Active Medications Generic Name Dose Route Start Last Admin Trade Name Freq PRN Reason Stop Dose Admin Acetaminophen 1,000 mg 09/22/19 00:01 09/26/19 02:22 Tylenol PO 1,000 mg Q6H PRN Administration Headache/Fever or Pain Albuterol Sulfate 2.5 mg 09/18/19 19:00 09/26/19 14:30 Ventolin NEB 2.5 mg [id number] KATHYA Administration Carvedilol 12.5 mg 09/24/19 17:00 09/26/19 08:28 Coreg PO 12.5 mg BID-WM KATHYA Administration Fluoxetine HCl 40 mg 09/18/19 09:00 09/26/19 08:27 Prozac PO 40 mg DAILY KATHYA Administration Insulin Glargine 5 units/ 0.05 mls @ 0 mls/hr 09/04/19 09:00 09/26/19 08:28 Miscellaneous Medication SC 0.05 mls QAM KATHYA Administration Sterile Water 200 ml/ Sodium 1,770.7021 mls @ 73.779 mls/hr 09/23/19 22:00 22:09 Acetate 40 meq/ Sodium IV 1,770.7021 mls Chloride 60 meq/ Potassium 2200 KATHYA Administration Chloride 80 meq/ Potassium Phosphate 30 mmol/ Calcium Gluconate 10 meq/ Magnesium Sulfate 10 meq/ Multivitamins 10 ml/ Chromium/Copper/ Manganese/Seleni/Zn 1 ml/ Insulin Human Regular 50 units / Amino Acids/ Dextrose/Water/ Fat Emulsion Intravenous Insulin Human Lispro 0 units 08/19/19 15:39 09/26/19 11:54 Humalog SC 2 unit .MODERATE SLIDING SC PRN Administration Moderate Correctional Scale Insulin Human Lispro 0 units 08/19/19 15:39 09/10/19 19:47 Humalog SC 2 units .BEDTIME SLIDING SC PRN Administration Bedtime Correctional Scale Melatonin 3 mg 09/17/19 21:00 09/25/19 20:47 Melatonin PO 3 mg HS KATHYA Administration Metoclopramide HCl 10 mg 09/25/19 17:00 09/26/19 11:54 Reglan PO 10 mg ACHS KATHYA Administration Nitroglycerin 1 patch 08/26/19 09:00 09/26/19 08:28 Nitro-Dur 0.4mg/Hr Patch TD 1 patch DAILY KATHYA Administration Ondansetron HCl 4 mg 08/19/19 15:39 09/21/19 09:36 Zofran IVP 4 mg Q6H PRN Administration Nausea/Vomiting Pantoprazole Sodium 40 mg 08/28/19 09:00 09/26/19 08:27 Protonix IVP 40 mg DAILY KATHYA Administration Remove Nitro Patch 0 each 09/09/19 21:00 09/25/19 22:08 TD Not Given 2100 KATHYA Rivaroxaban 20 mg 09/24/19 18:00 09/25/19 18:10 Xarelto PO 20 mg 1800 KATHYA Administration Sodium Chloride 10 ml 08/19/19 15:39 09/24/19 09:48 Flush - Normal Saline IVF 10 ml PRN PRN Administration Saline Flush Tamsulosin HCl 0.4 mg 09/24/19 21:00 09/25/19 20:47 Flomax PO 0.4 mg HS KATHYA Administration - Exam General Appearance: NAD, awake alert Eye: PERRL, anicteric sclera ENT: normocephalic atraumatic, no oropharyngeal lesions Neck: supple, symmetric, no JVD, no thyromegaly, no lymphadenopathy Heart: RRR, no gallops, no rubs, normal peripheral pulses Heart - other findings: S1, S2 Respiratory - other findings: diminished in bases Gastrointestinal: no guarding, no rigidity, distended, diminished bowl sounds Gastrointestinal - other findings: mild TTP, surgical incision intact Extremities: no cyanosis, no clubbing, no edema Skin: normal turgor Neurological: cranial nerve grossly intact, no new deficit Musculoskeletal: normal tone, generalized weakness Psychiatric: A&O x 3, flat affect Hosp A/P (1) SBO (small bowel obstruction) Code(s): K56.609 - UNSP INTESTNL OBST, UNSP TO PARTIAL VERSUS COMPLETE OBST Status: Acute Plan: s/p R hemicolectomy with ileo-colonic anastomosis POD#8, advance diet from full liquids as clinically tolerating (2) Hypokalemia Code(s): E87.6 - HYPOKALEMIA Status: Acute (3) Atrial fibrillation with RVR Code(s): I48.91 - UNSPECIFIED ATRIAL FIBRILLATION Status: Chronic (4) Hypophosphatemia Code(s): E83.39 - OTHER DISORDERS OF PHOSPHORUS METABOLISM Status: Acute (5) Sepsis Code(s): A41.9 - SEPSIS, UNSPECIFIED ORGANISM Status: Acute Qualifiers: Sepsis type: sepsis due to unspecified organism Sepsis acute organ dysfunction status: without acute organ dysfunction Qualified Code(s): A41.9 - Sepsis, unspecified organism (6) Chronic anticoagulation Code(s): Z79.01 - 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
[2019-09-26] MEDS: Rivaroxaban 10 MG TAB PO SCH (17:28)
[2019-09-26] MEDS: Ondansetron PF 4 MG/2 ML Vial IVP PRN (18:27)
[2019-09-26] MEDS: Tamsulosin HCl 0.4 MG CAP PO SCH (20:46)
[2019-09-26] MEDS: Melatonin 3 MG TAB PO SCH (20:46)
[2019-09-26] MEDS: REMOVE NITRO PATCH TD SCH (20:46)
[2019-09-26] MEDS: [UNRECOGNIZED DRUG - OTHER] IV SCH (22:06)
[2019-09-26] MEDS: SODIUM ACETATE IV SCH (22:06)
[2019-09-26] MEDS: STERILE WATER IV SCH (22:06)
[2019-09-27] MEDS: Albuterol Sulfate 2.5 mg/3 ml Neb NEB SCH ×4 (00:40→19:19)
[2019-09-27] MEDS: Acetaminophen 500 MG TAB PO PRN ×2 (00:57→21:37)
[2019-09-27 03:01] LABS: Hemoglobin 8.1 g/dL (14.0-18.0); Platelet Count 202 thou/uL (130-400)
[2019-09-27] MEDS: Metoclopramide 10 MG/10 ML UDCUP PO SCH ×4 (06:19→21:17)
[2019-09-27] MEDS: HumaLOG 300 UNITS/3 ML VIAL SC PRN ×3 (06:20→18:22)
[2019-09-27] MEDS: Ondansetron PF 4 MG/2 ML Vial IVP PRN (06:24)
[2019-09-27] MEDS: Nitroglycerin 0.4mg/Hour PATCH TD SCH (09:18)
[2019-09-27] MEDS: FLUoxetine HCl 20 MG CAP PO SCH (09:18)
[2019-09-27] MEDS: Carvedilol 6.25 MG TAB PO SCH ×2 (09:18→17:50)
[2019-09-27] MEDS: Insulin Glargine 5 UNITS in Pre-Filled Syringe 1 EACH SC SCH (09:18)
[2019-09-27] MEDS: Pantoprazole 40 MG VIAL IVP SCH (09:19)
[2019-09-27] MEDS ORDERED: Lidocaine 2% Jelly 5 ML TUBE TOP PRN (10:27)
--- NOTE | 2019-09-27 11:40 | PDOC.HOSPP ---
- Subjective Encounter Date: 09/27/19 Encounter Time: 10:10 Subjective: pt looks quite fatigued. says he has no appetite. - Objective Vital Signs & Weight: Vital Signs (12 hours) Temp Pulse Resp BP BP Pulse Ox 09/27/19 11:25 98.5 F 76 20 116/70 94 L 09/27/19 09:18 166/88 H 09/27/19 07:58 74 16 93 L 09/27/19 07:42 98.0 F 77 20 128/77 92 L 09/27/19 04:31 98.7 F 77 16 119/73 95 09/27/19 00:40 16 09/27/19 00:33 100.2 F H 81 18 113/56 L 93 L Weight Admit Weight 226 lb 14.4 oz Weight 224 lb Most Recent Monitor Data Heart Rate from ECG 73 NIBP 111/63 NIBP BP-Mean 79 Respiration from ECG 18 SpO2 100 I&O: 09/26/19 09/27/19 09/28/19 06:59 06:59 06:59 Intake Total 1998 2149 Output Total 775 Balance 1224 2150 Result Diagrams: 09/27/19 02:50 09/24/19 06:30 Additional Labs: Accuchecks 09/27/19 09/27/19 09/26/19 11:25 05:36 23:37 POC Glucose 164 H 180 H 154 H 09/26/19 17:58 POC Glucose 120 H Hospitalist ROS - Medication Medications: Active Medications Generic Name Dose Route Start Last Admin Trade Name Freq PRN Reason Stop Dose Admin Acetaminophen 1,000 mg 09/22/19 00:01 09/27/19 00:57 Tylenol PO 500 mg Q6H PRN Administration Headache/Fever or Pain Albuterol Sulfate 2.5 mg 09/18/19 19:00 09/27/19 07:58 Ventolin NEB 2.5 mg [id number] KATHYA Administration Carvedilol 12.5 mg 09/24/19 17:00 09/27/19 09:18 Coreg PO 12.5 mg BID-WM KATHYA Administration Fluoxetine HCl 40 mg 09/18/19 09:00 09/27/19 09:18 Prozac PO 40 mg DAILY KATHYA Administration Insulin Glargine 5 units/ 0.05 mls @ 0 mls/hr 09/04/19 09:00 09/27/19 09:18 Miscellaneous Medication SC 0.05 mls QAM KATHYA Administration Sterile Water 200 ml/ Sodium 1,770.7021 mls @ 73.779 mls/hr 09/23/19 22:00 22:06 Acetate 40 meq/ Sodium IV 1,770.7021 mls Chloride 60 meq/ Potassium 2200 KATHYA Administration Chloride 80 meq/ Potassium Phosphate 30 mmol/ Calcium Gluconate 10 meq/ Magnesium Sulfate 10 meq/ Multivitamins 10 ml/ Chromium/Copper/ Manganese/Seleni/Zn 1 ml/ Insulin Human Regular 50 units / Amino Acids/ Dextrose/Water/ Fat Emulsion Intravenous Insulin Human Lispro 0 units 08/19/19 15:39 09/27/19 06:20 Humalog SC 2 unit .MODERATE SLIDING SC PRN Administration Moderate Correctional Scale Insulin Human Lispro 0 units 08/19/19 15:39 09/10/19 19:47 Humalog SC 2 units .BEDTIME SLIDING SC PRN Administration Bedtime Correctional Scale Melatonin 3 mg 09/17/19 21:00 09/26/19 20:46 Melatonin PO 3 mg HS KATHYA Administration Metoclopramide HCl 10 mg 09/25/19 17:00 09/27/19 06:19 Reglan PO 10 mg ACHS KATHYA Administration Nitroglycerin 1 patch 08/26/19 09:00 09/27/19 09:18 Nitro-Dur 0.4mg/Hr Patch TD 1 patch DAILY KATHYA Administration Ondansetron HCl 4 mg 08/19/19 15:39 09/27/19 06:24 Zofran IVP 4 mg Q6H PRN Administration Nausea/Vomiting Pantoprazole Sodium 40 mg 08/28/19 09:00 09/27/19 09:19 Protonix IVP 40 mg DAILY KATHYA Administration Remove Nitro Patch 0 each 09/09/19 21:00 09/26/19 20:46 TD Not Given 2100 KATHYA Rivaroxaban 20 mg 09/24/19 18:00 09/26/19 17:28 Xarelto PO 20 mg 1800 KATYHA Administration Sodium Chloride 10 ml 08/19/19 15:39 09/26/19 20:46 Flush - Normal Saline IVF 10 ml PRN PRN Administration Saline Flush Tamsulosin HCl 0.4 mg 09/24/19 21:00 09/26/19 20:46 Flomax PO 0.4 mg HS KATHYA Administration - Exam General Appearance: ill appearing Eye: PERRL ENT: normocephalic atraumatic Neck: supple Heart: RRR Respiratory: normal chest expansion Gastrointestinal: distended, diminished bowl sounds Neurological: no focal deficits 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(s): Z79.01 - 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) USE OF ANTICOAGULANTS Status: Chronic (5) DM type 2 (diabetes mellitus, type 2) Status: Chronic Qualifiers: Diabetes mellitus care home insulin use: without care home use Diabetes mellitus complication status: with neurologic complications Diabetes mellitus complication detail: with polyneuropathy Qualified Code(s): E11.42 - Type 2 diabetes mellitus with diabetic polyneuropathy (6) Dyslipidemia Code(s): E78.5 - HYPERLIPIDEMIA, UNSPECIFIED Status: Chronic (7) HTN (hypertension) Code(s): I10 - ESSENTIAL (PRIMARY) HYPERTENSION Status: Chronic Qualifiers: Hypertension type: essential hypertension Qualified Code(s): I10 - Essential (primary) hypertension (8) Obesity (BMI 30.0-34.9) Code(s): E66.9 - OBESITY, UNSPECIFIED Status: Chronic (4) Hypophosphatemia Code(s): E83.39 - OTHER DISORDERS OF PHOSPHORUS METABOLISM Status: Acute (2) Hypokalemia Code(s): E87.6 - HYPOKALEMIA Status: Acute Hypokalemia -replaced Atrial fibrillation -rate controlled on oral diltiazem and Coreg. -AC - Xarelto ---------> on hold s/p cscope on s/p polpectomy and some changes in terminal ileum and caecum c/w post-op sux changes. s/p exploratory laporatomy on september 17 R.colectomya dn ileo-colon anastomoses. Continue routine post-op care Full liquids as tolerated------------------------> can advance to diabetic diet , when able. Nutritional support with TPN------->currently cont'd, will wean off when po intake improved. Serial abd exams Increase Coreg 12.5mg BID-----> BP and pulse ok. Pt's Po intake has to improve and should be weaned off TPN prior to considering rehab options would be a candidate for LTAC given the current slow progress. OOB with PT Full code.
--- NOTE | 2019-09-27 12:46 | PDOC.GSPN ---
Surgery Progress Note: Subj - Subjective Narrative: Patient is feeling more uncomfortable this morning. He is bloating and his stomach is hurting. He is nauseated. He is not passing gas. His abdomen is distended and tympanitic. His incision is clean but he is diffusely tender to palpation. He only took in 390 of p.o. yesterday. White count is stable at 11.5. Hematocrit is also stable although low at 25. 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 Bowel function has not returned and I have recommended replacement of the NG tube. Patient agrees to have this done. Continue TPN. Surgery Progress Note: Obj - Vital signs Vital signs: Vital Signs - Most Recent Temp Pulse Resp BP Pulse Ox 98.5 F 76 20 116/70 94 L 09/27/19 11:25 09/27/19 11:25 09/27/19 11:25 09/27/19 11:25 09/27/19 11:25 Surgery Progress Note: Results - Labs Result Diagrams: 09/27/19 02:50 09/24/19 06:30 Lab results: Laboratory Results - last 24 hr 09/27/19 09/27/19 09/27/19 02:50 05:36 11:25 Hgb 8.1 L Hct 24.6 L Plt Count 202 POC Glucose 180 H 164 H
[2019-09-27] MEDS: Rivaroxaban 10 MG TAB PO SCH (17:50)
[2019-09-27] MEDS: Melatonin 3 MG TAB PO SCH (21:16)
[2019-09-27] MEDS: Tamsulosin HCl 0.4 MG CAP PO SCH (21:16)
[2019-09-27] MEDS: REMOVE NITRO PATCH TD SCH (21:17)
[2019-09-27] MEDS: [UNRECOGNIZED DRUG - OTHER] IV SCH (22:15)
[2019-09-27] MEDS: SODIUM ACETATE IV SCH (22:15)
[2019-09-27] MEDS: STERILE WATER IV SCH (22:15)
[2019-09-28] MEDS: Albuterol Sulfate 2.5 mg/3 ml Neb NEB SCH ×4 (00:01→18:06)
[2019-09-28 05:43] LABS: #Eosinphils 0.5 thou/uL (0.0-0.7); #Lymphocytes 1.8 thou/uL (1.20-3.40); #Monocytes 0.9 thou/uL (0.11-0.59); #Neutrophils 8.3 thou/uL (1.40-6.50); %Basophils 0.1 % (0.0-1.0); %Eosinophils 4.2 % (0.0-10.0); %Lymphocytes 15.8 % (21.0-51.0); %Monocytes 7.6 % (0.0-10.0); %Neutrophils 72.3 % (42.0-75.0); Hemoglobin 7.7 g/dL (14.0-18.0); Mean Corpuscular HGB CONC 32.9 g/dL (32.0-36.0); Mean Corpuscular Hemoglobin 30.7 pg (27.0-31.0); Mean Corpuscular Volume 93.3 fL (78.0-98.0); Mean Platelet Volume 9.8 fL (7.4-10.4); Platelet Count 211 thou/uL (130-400); RBC Distribution Width 12.9 % (11.5-14.5); Red Blood Cell (RBC) Count 2.52 mill/uL (4.70-6.10); White Blood Cell (WBC) Count 11.5 thou/uL (4.8-10.8)
[2019-09-28 06:06] LABS: ALT (SGPT) 85 U/L (8-55); AST (SGOT) 44 U/L (5-34); Alkaline Phosphatase 112 U/L (40-110); Anion Gap 8 mmol/L (10-20); BUN (Urea Nitrogen) 21 mg/dL (8.4-25.7); Bilirubin, Total 0.4 mg/dL (0.2-1.2); Calc. Creatinine Clearance 133 mL/min (70-130); Calcium 7.6 mg/dL (7.8-10.44); Carbon Dioxide 26 mmol/L (23-31); Chloride 108 mmol/L (98-107); Estimated GFR-MDRD Greater than 90; Globulin 3.8 g/dL (2.4-3.5); Glucose 118 mg/dL (83-110); Phosphorus 4.5 mg/dL (2.3-4.7); Potassium 4.2 mmol/L (3.5-5.1); Protein, Total 5.8 g/dL (5.8-8.1); Sodium 138 mmol/L (136-145)
[2019-09-28] MEDS: Metoclopramide 10 MG/10 ML UDCUP PO SCH ×4 (06:33→20:52)
[2019-09-28] MEDS: Insulin Glargine 5 UNITS in Pre-Filled Syringe 1 EACH SC SCH (09:21)
[2019-09-28] MEDS: Pantoprazole 40 MG VIAL IVP SCH (09:21)
[2019-09-28] MEDS: Nitroglycerin 0.4mg/Hour PATCH TD SCH (09:21)
[2019-09-28] MEDS: FLUoxetine HCl 20 MG CAP PO SCH (09:22)
[2019-09-28] MEDS: Carvedilol 6.25 MG TAB PO SCH ×2 (09:22→16:45)
[2019-09-28] MEDS ORDERED: Metoprolol Tartrate 5 MG/5 ML VIAL IVP PRN (09:45)
--- NOTE | 2019-09-28 10:54 | PDOC.GSPN ---
Surgery Progress Note: Subj - Subjective Narrative: Patient is feeling better today after having the NG tube replaced. He has had over a liter out overnight. This is light green in color. He is passing some gas again and had a couple liquid bowel movements. His abdominal pain and distention has improved. He is still tympanitic with diminished bowel sounds. Vital signs are okay. Transaminases are mildly elevated. Prealbumin and albumin are low. Electrolytes are okay. Assessment/plan: Persistent ileus status post adhesio lysis and right hemicolectomy for recurrent small bowel obstruction. Feeling better with the NG down. Passing some gas and having some small bowel movements. Continue NG decompression. Prealbumin and albumin are low despite TPN so I am going to ask the dietitian to evaluate him. His LFTs are up a little bit which is likely due to cholestasis although long-term TPN could be contributing. Overall he is stable but poor condition. Surgery Progress Note: Obj - Vital signs Vital signs: Vital Signs - Most Recent Temp Pulse Resp BP Pulse Ox 98.3 F 71 16 166/88 H 98 09/28/19 05:25 09/28/19 07:07 09/28/19 07:07 09/28/19 09:22 09/28/19 07:10 Surgery Progress Note: Results - Labs Result Diagrams: 09/28/19 05:30 09/28/19 05:30 Lab results: Laboratory Results - last 24 hr 09/27/19 09/28/19 09/28/19 23:46 05:30 05:30 WBC RBC Hgb Hct MCV MCH MCHC RDW Plt Count MPV Neutrophils % Lymphocytes % Monocytes % Eosinophils % Basophils % Neutrophils # Lymphocytes # Monocytes # Eosinophils # Basophils # Sodium 138 Potassium 4.2 Chloride 108 H Carbon Dioxide 26 Anion Gap 8 L BUN 21 Creatinine 0.69 L Estimated GFR (MDRD) Greater than 90 Glucose 118 H POC Glucose 153 H Calcium 7.6 L Phosphorus 4.5 Magnesium 2.0 Total Bilirubin 0.4 AST 44 H ALT 85 H Alkaline Phosphatase 112 H Serum Total Protein 5.8 Albumin 2.0 L Globulin 3.8 H Albumin/Globulin Ratio 0.5 L Prealbumin 7.0 L 09/28/19 09/28/19 05:30 05:39 WBC 11.5 H RBC 2.52 L Hgb 7.7 L Hct 23.6 L MCV 93.3 MCH 30.7 MCHC 32.9 RDW 12.9 Plt Count 211 MPV 9.8 Neutrophils % 72.3 Lymphocytes % 15.8 L Monocytes % 7.6 Eosinophils % 4.2 Basophils % 0.1 Neutrophils # 8.3 H Lymphocytes # 1.8 Monocytes # 0.9 H Eosinophils # 0.5 Basophils # 0.0 Sodium Potassium Chloride Carbon Dioxide Anion Gap BUN Creatinine Estimated GFR (MDRD) Glucose POC Glucose 123 H Calcium Phosphorus Magnesium Total Bilirubin AST ALT Alkaline Phosphatase Serum Total Protein Albumin Globulin Albumin/Globulin Ratio Prealbumin
--- NOTE | 2019-09-28 14:45 | PDOC.HOSPP ---
- Subjective Encounter Date: 09/28/19 Encounter Time: 11:30 Subjective: Phy therapy nearby. pt still looks lethargic. NGT has 200 ml of dark bilious fluid. abdomen distention slightly better. pt is NPO. - Objective Vital Signs & Weight: Vital Signs (12 hours) Temp Pulse Resp BP BP BP Pulse Ox 09/28/19 13:29 76 16 100 09/28/19 11:13 98.8 F 76 14 125/72 97 09/28/19 09:22 166/88 H 09/28/19 07:10 98 09/28/19 07:07 71 16 100 09/28/19 05:25 98.3 F 73 20 126/79 96 Weight Admit Weight 226 lb 14.4 oz Weight 224 lb Most Recent Monitor Data Heart Rate from ECG 73 NIBP 111/63 NIBP BP-Mean 79 Respiration from ECG 18 SpO2 100 I&O: 09/27/19 09/28/19 09/29/19 06:59 06:59 06:59 Intake Total 2150 884 Output Total 1130 Balance 2150 -246 Result Diagrams: 09/28/19 05:30 09/28/19 05:30 Additional Labs: Accuchecks 09/28/19 09/28/19 09/27/19 12:19 05:39 23:46 POC Glucose 155 H 123 H 153 H 09/27/19 15:49 POC Glucose 160 H Hospitalist ROS - Medication Medications: Active Medications Generic Name Dose Route Start Last Admin Trade Name Freq PRN Reason Stop Dose Admin Acetaminophen 1,000 mg 09/22/19 00:01 09/27/19 21:37 Tylenol PO 1,000 mg Q6H PRN Administration Headache/Fever or Pain Albuterol Sulfate 2.5 mg 09/18/19 19:00 09/28/19 13:29 Ventolin NEB 2.5 mg [id number] KATHYA Administration Carvedilol 12.5 mg 09/24/19 17:00 09/28/19 09:22 Coreg PO 12.5 mg BID-WM KATHYA Administration Fluoxetine HCl 40 mg 09/18/19 09:00 09/28/19 09:22 Prozac PO 40 mg DAILY KATHYA Administration Insulin Glargine 5 units/ 0.05 mls @ 0 mls/hr 09/04/19 09:00 09/28/19 09:21 Miscellaneous Medication SC 0.05 mls QAM KATHYA Administration Sterile Water 200 ml/ Sodium 1,770.7021 mls @ 73.779 mls/hr 09/23/19 22:00 22:15 Acetate 40 meq/ Sodium IV 1,770.7021 mls Chloride 60 meq/ Potassium 2200 KATHYA Administration Chloride 80 meq/ Potassium Phosphate 30 mmol/ Calcium Gluconate 10 meq/ Magnesium Sulfate 10 meq/ Multivitamins 10 ml/ Chromium/Copper/ Manganese/Seleni/Zn 1 ml/ Insulin Human Regular 50 units / Amino Acids/ Dextrose/Water/ Fat Emulsion Intravenous Insulin Human Lispro 0 units 08/19/19 15:39 09/27/19 18:22 Humalog SC 2 unit .MODERATE SLIDING SC PRN Administration Moderate Correctional Scale Insulin Human Lispro 0 units 08/19/19 15:39 09/10/19 19:47 Humalog SC 2 units .BEDTIME SLIDING SC PRN Administration Bedtime Correctional Scale Melatonin 3 mg 09/17/19 21:00 09/27/19 21:16 Melatonin PO 3 mg HS KATHYA Administration Metoclopramide HCl 10 mg 09/25/19 17:00 09/28/19 11:56 Reglan PO 10 mg ACHS KATHYA Administration Nitroglycerin 1 patch 08/26/19 09:00 09/28/19 09:21 Nitro-Dur 0.4mg/Hr Patch TD 1 patch DAILY KATHYA Administration Ondansetron HCl 4 mg 08/19/19 15:39 09/27/19 06:24 Zofran IVP 4 mg Q6H PRN Administration Nausea/Vomiting Pantoprazole Sodium 40 mg 08/28/19 09:00 09/28/19 09:21 Protonix IVP 40 mg DAILY KATHYA Administration Remove Nitro Patch 0 each 09/09/19 21:00 09/27/19 21:17 TD 1 each 2100 KATHYA Administration Rivaroxaban 20 mg 09/24/19 18:00 09/27/19 17:50 Xarelto PO 20 mg 1800 KATHYA Administration Sodium Chloride 10 ml 08/19/19 15:39 09/26/19 20:46 Flush - Normal Saline IVF 10 ml PRN PRN Administration Saline Flush Tamsulosin HCl 0.4 mg 09/24/19 21:00 09/27/19 21:16 Flomax PO 0.4 mg HS KATHYA Administration - Exam General Appearance: ill appearing Eye: PERRL ENT: normocephalic atraumatic Neck: supple Heart: RRR Respiratory: CTAB, normal chest expansion Gastrointestinal: tender to palpation, distended, diminished bowl sounds Extremities: no edema Neurological: no focal deficits Psychiatric: A&O x 3 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(s): Z79.01 - MCFP (CURRENT) USE OF ANTICOAGULANTS Status: Chronic (5) DM type 2 (diabetes mellitus, type 2) Status: Chronic Qualifiers: Diabetes mellitus chcf insulin use: without exterminator helper use Diabetes mellitus complication status: with neurologic complications Diabetes mellitus complication detail: with polyneuropathy Qualified Code(s): E11.42 - Type 2 diabetes mellitus with diabetic polyneuropathy (6) Dyslipidemia Code(s): E78.5 - HYPERLIPIDEMIA, UNSPECIFIED Status: Chronic (7) HTN (hypertension) Code(s): I10 - ESSENTIAL (PRIMARY) HYPERTENSION Status: Chronic Qualifiers: Hypertension type: essential hypertension Qualified Code(s): I10 - Essential (primary) hypertension (8) Obesity (BMI 30.0-34.9) Code(s): E66.9 - OBESITY, UNSPECIFIED Status: Chronic (4) Hypophosphatemia Code(s): E83.39 - OTHER DISORDERS OF PHOSPHORUS METABOLISM Status: Acute (2) Hypokalemia Code(s): E87.6 - HYPOKALEMIA Status: Acute Hypokalemia -replaced Atrial fibrillation -rate controlled on oral diltiazem and Coreg. -AC - Xarelto ---------> on s/p cscope on s/p polpectomy and some changes in terminal ileum and caecum c/w post-op sux changes. s/p exploratory laporatomy on september 17 R.colectomya dn ileo-colon anastomoses. Continue routine post-op care Full liquids as tolerated------------------------> can advance to diabetic diet , when able. Nutritional support with TPN------->currently cont'd, will wean off when po intake improved. Serial abd exams Increase Coreg 12.5mg BID-----> BP and pulse ok. Pt's Po intake has to improve and should be weaned off TPN prior to considering rehab options would be a candidate for LTAC given the current slow progress. OOB with PT Full code. 12th Perssitent ileus - NGT has 200 ml of dark bilious fluid. abdomen distention slightly better. pt is NPO. Transaminitis, mild Cholestasis --may be wi.. ongoing TPN --appreciate gen sux input. - ntr c/s plagin Moderate mal nutrition - with above GI issues as above and less intake -pt cont'd to be NPO and receiving TPN. -getting lytes incl mag, phos levels. Slow improvement. LTAC would be an option.
[2019-09-28] MEDS: Rivaroxaban 10 MG TAB PO SCH (17:20)
[2019-09-28] MEDS: Tamsulosin HCl 0.4 MG CAP PO SCH (20:52)
[2019-09-28] MEDS: Acetaminophen 500 MG TAB PO PRN (20:52)
[2019-09-28] MEDS: Melatonin 3 MG TAB PO SCH (20:52)
[2019-09-28] MEDS: REMOVE NITRO PATCH TD SCH (20:52)
[2019-09-28] MEDS: STERILE WATER IV SCH (22:18)
[2019-09-28] MEDS: SODIUM ACETATE IV SCH (22:18)
[2019-09-28] MEDS: [UNRECOGNIZED DRUG - OTHER] IV SCH (22:18)
[2019-09-29] MEDS: Albuterol Sulfate 2.5 mg/3 ml Neb NEB SCH ×4 (00:23→18:25)
[2019-09-29 05:22] LABS: #Eosinphils 0.4 thou/uL (0.0-0.7); #Lymphocytes 1.8 thou/uL (1.20-3.40); #Neutrophils 8.9 thou/uL (1.40-6.50); %Eosinophils 3.6 % (0.0-10.0); %Lymphocytes 14.7 % (21.0-51.0); %Monocytes 8.5 % (0.0-10.0); %Neutrophils 73.2 % (42.0-75.0); Hemoglobin 7.6 g/dL (14.0-18.0); Mean Corpuscular HGB CONC 32.9 g/dL (32.0-36.0); Mean Corpuscular Hemoglobin 30.7 pg (27.0-31.0); Mean Corpuscular Volume 93.1 fL (78.0-98.0); Platelet Count 222 thou/uL (130-400); RBC Distribution Width 12.9 % (11.5-14.5); Red Blood Cell (RBC) Count 2.49 mill/uL (4.70-6.10); White Blood Cell (WBC) Count 12.2 thou/uL (4.8-10.8)
[2019-09-29 05:41] LABS: Phosphorus 3.8 mg/dL (2.3-4.7)
[2019-09-29 05:43] LABS: Anion Gap 10 mmol/L (10-20); BUN (Urea Nitrogen) 19 mg/dL (8.4-25.7); Calc. Creatinine Clearance 137 mL/min (70-130); Calcium 7.6 mg/dL (7.8-10.44); Carbon Dioxide 24 mmol/L (23-31); Chloride 106 mmol/L (98-107); Estimated GFR-MDRD Greater than 90; Glucose 120 mg/dL (83-110); Magnesium 1.8 mg/dL (1.6-2.6); Sodium 136 mmol/L (136-145)
[2019-09-29] MEDS: Metoclopramide 10 MG/10 ML UDCUP PO SCH ×2 (06:03→11:46)
[2019-09-29] MEDS: Carvedilol 6.25 MG TAB PO SCH ×2 (08:04→17:31)
[2019-09-29] MEDS: Insulin Glargine 5 UNITS in Pre-Filled Syringe 1 EACH SC SCH (08:05)
[2019-09-29] MEDS: Nitroglycerin 0.4mg/Hour PATCH TD SCH (08:05)
[2019-09-29] MEDS: FLUoxetine HCl 20 MG CAP PO SCH (08:05)
[2019-09-29] MEDS: Pantoprazole 40 MG VIAL IVP SCH (08:05)
[2019-09-29] MEDS ORDERED: cefTRIAXone\\ROCEPHIN 1 GM in Sodium Chloride 0.9% 100 ML IVPB SCH (09:00)
[2019-09-29] MEDS ORDERED: Iopamidol 370 76% 100 ML VIAL ONE (09:47)
--- NOTE | 2019-09-29 10:20 | CT ---
CT of abdomen and pelvis: 09/29/2019 COMPARISON: 09/11/2019 HISTORY: Evaluate for an abdominal infection, recent bowel surgery TECHNIQUE: Axial CT imaging at 5 mm intervals from the lung bases through the pubic symphysis with IV and oral contrast. Coronal and sagittal reformatted imaging obtained. FINDINGS: There is a nasogastric tube extending into the distal gastric body. There is mild increased linear interstitial density in both lung bases No free intraperitoneal air is noted. Numerous cutaneous teja are seen anteriorly consistent with recent abdominal surgery. The spleen, pancreas, adrenal glands, and kidneys demonstrate no acute findings. There is gas within the urinary bladder which may be on the basis of prior Velasquez catheterization or f istulous communication between bowel and the urinary bladder. Clinical correlation is required. The patient appears status post interval right hemicolectomy with a suture line associated with a sma ll bowel to colon anastomosis within the right upper quadrant. There is significant adjacent inflammatory fat stranding at the postoperative site. This fat stranding extends superiorly into the region of the gallbladder fossa. There are calcified stones in the region of the gallbladder neck. There is mild wall thickening of the gallbladder and there is stranding of the fat adjacent to the ga llbladder. There is a focus of gas lateral to the bowel suture line on coronal image 51 measuring 1.2 cm, also s een on axial image 44. This could represent a focus of gas within a redundant small bowel loop at the anastomotic site or could represent the sequela of leak. Adjacent to this laterally there is a ri m-enhancing fluid collection within the right paracolic gutter which abuts the undersurface of the right lobe of the liver. This is suspicious for abscess as it contains a focus of gas. It measures 10 cm in AP dimension, 4.8 cm in transverse dimension, and 10 cm in craniocaudal dimension. There is a linear new area of decreased density within the anterior inferior aspect of the right lobe of the liver, not seen on the 09/11/2019 examination, which suggest interval peripheral right hepatic laceration. There is an oblong the rim-enhancing fluid collection deep within the midline abdomen posterior to th e small bowel, best seen on image 55 of the axial series measuring 8.3 x 2.3 x 10.9 cm. There is small volume free fluid within the pelvis. Prostate gland is prominent. Vascular structures demonstrate extensive atherosclerotic calcification of the abdominal aorta and it s branches. Review of the osseous structures demonstrates a sclerotic lesion within the sacrum on the left measur ing 1.5 cm. There is a sclerotic lesion within the right iliac bone medially measuring 9 mm. There are multiple distended small bowel loops within the central abdomen without a transition point, likel y on the basis of ileus. No pelvic or retroperitoneal lymphadenopathy. IMPRESSION: Status post right hemicolectomy. Small focus of gas near the suture line may signify anas tomotic leak. A rim-enhancing fluid collection lateral to this suggests lateral mid right abdominal abscess. An additional abscess is suspected deep within the posterior lower abdomen. Cholelithiasis with gallbladder wall thickening and stranding of the fat adjacent to the gallbladder suggesting inflammatory change. This is likely secondary to the inflammatory change associated with recent surgery involving the right colon. Acute cholecystitis cannot be excluded. Findings suggesting probable ileus. Sclerotic foci of uncertain significance. Osseous metastatic disease cannot be excluded. Findings suggesting interval development of a inferior right hepatic laceration.
[2019-09-29 11:37] LABS: INR-International Normal Ratio 1.4; PTT 33.2 sec (22.9-36.1); Prothrombin Time 17.6 sec (12.0-14.7)
[2019-09-29] MEDS: Piperacillin/Tazobactam 4.5 GM in Sodium Chloride 0.9% 100 ML IVPB SCH ×3 (11:46→23:15)
[2019-09-29 12:00] LABS: Cardiac Risk 3.7 (Less than 4.5)
--- NOTE | 2019-09-29 12:04 | RAD ---
CHEST 1 VIEW: Date: 09/29/2019 HISTORY: High white blood count. COMPARISON: Radiograph 09/22/2019. FINDINGS: The patient has been extubated. The subclavian central venous catheter tip projects over the right at rium. Enteric tube tip below diaphragm, though out of field of view. Concern for developing right upper and left upper lobe air space opacities. There is also left basila r air space opacity. No acute osseous abnormality. IMPRESSION: Findings concerning for developing multifocal pneumonia. Follow-up recommended. POS: [facility]
[2019-09-29 12:11] VITALS: BMI 34.7
[2019-09-29] MEDS: HumaLOG 300 UNITS/3 ML VIAL SC PRN (12:29)
[2019-09-29 13:05] LABS: Bilirubin Negative (Negative); Blood, Urine Negative (Negative); Clarity Clear (Clear); Glucose, Urine (Dipstick) Normal (Negative); Ketone, Urine Negative (Negative); Leukocyte 75 Leu/uL (Negative); Nitrite Negative (Negative); Protein, Urine (Dipstick) 20 mg/dL (Neg-Trace); Squamous Epithelial None Seen HPF (0-3); Urobilinogen Normal mg/dL (Less than 2)
[2019-09-29 13:06] LABS: Bacteria/HPF 1+ HPF (None Seen); Specific Gravity, Urine 1.055 (1.002-1.036)
[2019-09-29 13:07] LABS: Urine Culture Reflex Yes Yes
--- NOTE | 2019-09-29 14:24 | PDOC.HOSPP ---
- Subjective Encounter Date: 09/29/19 Encounter Time: 10:20 Subjective: pt still has NGT, and abdomen distended but soft, wbcs trending up - CXR shows multifocal infilaterate, UTI and r.. abdomen abscess. - Objective Vital Signs & Weight: Vital Signs (12 hours) Temp Pulse Resp BP BP BP Pulse Ox 09/29/19 11:42 99.2 F 75 18 152/71 H 97 09/29/19 08:04 137/78 09/29/19 07:28 99.3 F 79 16 137/78 97 09/29/19 06:59 69 16 96 09/29/19 03:27 98.6 F 73 17 146/82 H 96 09/29/19 02:45 98 Weight Admit Weight 226 lb 14.4 oz Weight 228 lb 9.6 oz Most Recent Monitor Data Heart Rate from ECG 73 NIBP 111/63 NIBP BP-Mean 79 Respiration from ECG 18 SpO2 100 I&O: 09/28/19 09/29/19 09/30/19 06:59 06:59 06:59 Intake Total 884 888 Output Total 1130 700 Balance -246 188 Result Diagrams: 09/29/19 05:07 09/29/19 05:07 Additional Labs: Accuchecks 09/29/19 09/29/19 09/28/19 12:18 05:14 23:38 POC Glucose 170 H 129 H 155 H 09/28/19 16:49 POC Glucose 147 H Hospitalist ROS - Medication Medications: Active Medications Generic Name Dose Route Start Last Admin Trade Name Henryq PRN Reason Stop Dose Admin Acetaminophen 1,000 mg 09/22/19 00:01 09/28/19 20:52 Tylenol PO 1,000 mg Q6H PRN Administration Headache/Fever or Pain Albuterol Sulfate 2.5 mg 09/18/19 19:00 09/29/19 13:32 Ventolin NEB Not Given [id number] KATHYA Carvedilol 12.5 mg 09/24/19 17:00 09/29/19 08:04 Coreg PO 12.5 mg BID-WM KATHYA Administration Fluoxetine HCl 40 mg 09/18/19 09:00 09/29/19 08:05 Prozac PO 40 mg DAILY KATHYA Administration Insulin Glargine 5 units/ 0.05 mls @ 0 mls/hr 09/04/19 09:00 07/13/20 08:05 Miscellaneous Medication SC 0.05 mls QAM KATHYA Administration Sterile Water 200 ml/ Sodium 1,770.7021 mls @ 73.779 mls/hr 09/23/19 22:00 22:18 Acetate 40 meq/ Sodium IV 1,770.7021 mls Chloride 60 meq/ Potassium 2200 KATHYA Administration Chloride 80 meq/ Potassium Phosphate 30 mmol/ Calcium Gluconate 10 meq/ Magnesium Sulfate 10 meq/ Multivitamins 10 ml/ Chromium/Copper/ Manganese/Seleni/Zn 1 ml/ Insulin Human Regular 50 units / Amino Acids/ Dextrose/Water/ Fat Emulsion Intravenous Piperacillin Sod/Tazobactam 100 mls @ 200 mls/hr 09/29/19 12:00 09/29/19 11: 46 Sod 4.5 gm/ Sodium Chloride IVPB 100 mls Q6HR KATHYA Administration Insulin Human Lispro 0 units 08/19/19 15:39 09/29/19 12:29 Humalog SC 2 unit .MODERATE SLIDING SC PRN Administration Moderate Correctional Scale Insulin Human Lispro 0 units 08/19/19 15:39 09/10/19 19:47 Humalog SC 2 units .BEDTIME SLIDING SC PRN Administration Bedtime Correctional Scale Melatonin 3 mg 09/17/19 21:00 09/28/19 20:52 Melatonin PO 3 mg HS KATHYA Administration Nitroglycerin 1 patch 08/26/19 09:00 09/29/19 08:05 Nitro-Dur 0.4mg/Hr Patch TD 1 patch DAILY KATHYA Administration Ondansetron HCl 4 mg 08/19/19 15:39 09/27/19 06:24 Zofran IVP 4 mg Q6H PRN Administration Nausea/Vomiting Pantoprazole Sodium 40 mg 08/28/19 09:00 09/29/19 08:05 Protonix IVP 40 mg DAILY KATHYA Administration Remove Nitro Patch 0 each 09/09/19 21:00 09/28/19 20:52 TD 1 each 2100 KATHYA Administration Sodium Chloride 10 ml 08/19/19 15:39 09/26/19 20:46 Flush - Normal Saline IVF 10 ml PRN PRN Administration Saline Flush Tamsulosin HCl 0.4 mg 09/24/19 21:00 09/28/19 20:52 Flomax PO 0.4 mg HS KATHYA Administration - Exam General Appearance: ill appearing Eye: PERRL ENT: normocephalic atraumatic Neck: supple Heart: RRR, normal peripheral pulses Respiratory: normal chest expansion, rales, rhonchi Gastrointestinal: tender to palpation, diminished bowl sounds Neurological: no focal deficits Psychiatric: somnolent, lethargic 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(s): Z79.01 - PRISON (CURRENT) USE OF ANTICOAGULANTS Status: Chronic (5) DM type 2 (diabetes mellitus, type 2) Status: Chronic Qualifiers: Diabetes mellitus custodial insulin use: without custodial use Diabetes mellitus complication status: with neurologic complications Diabetes mellitus complication detail: with polyneuropathy Qualified Code(s): E11.42 - Type 2 diabetes mellitus with diabetic polyneuropathy (6) Dyslipidemia Code(s): E78.5 - HYPERLIPIDEMIA, UNSPECIFIED Status: Chronic (7) HTN (hypertension) Code(s): I10 - ESSENTIAL (PRIMARY) HYPERTENSION Status: Chronic Qualifiers: Hypertension type: essential hypertension Qualified Code(s): I10 - Essential (primary) hypertension (8) Obesity (BMI 30.0-34.9) Code(s): E66.9 - OBESITY, UNSPECIFIED Status: Chronic (4) Hypophosphatemia Code(s): E83.39 - OTHER DISORDERS OF PHOSPHORUS METABOLISM Status: Acute (2) Hypokalemia Code(s): E87.6 - HYPOKALEMIA Status: Acute Hypokalemia -replaced Atrial fibrillation -rate controlled on oral diltiazem and Coreg. -AC - Xarelto ---------> on s/p cscope on s/p polpectomy and some changes in terminal ileum and caecum c/w post-op sux changes. s/p exploratory laporatomy on september 17 R.colectomya dn ileo-colon anastomoses. Continue routine post-op care Full liquids as tolerated------------------------> can advance to diabetic diet , when able. Nutritional support with TPN------->currently cont'd, will wean off when po intake improved. Serial abd exams Increase Coreg 12.5mg BID-----> BP and pulse ok. Pt's Po intake has to improve and should be weaned off TPN prior to considering rehab options would be a candidate for LTAC given the current slow progress. OOB with PT Full code. Persistent ileus - NGT has 200 ml of dark bilious fluid. abdomen distention slightly better. pt is NPO. Transaminitis, mild Cholestasis --may be wi.. ongoing TPN --appreciate gen sux input. - ntr c/s plagin Moderate mal nutrition - with above GI issues as above and less intake -pt cont'd to be NPO and receiving TPN. -getting lytes incl mag, phos levels. Slow improvement. LTAC would be an option. Persistent ileus R. abdomen abscess R. hepatic laceration Multifocal pnemonia. UTI prob.. cholelithiasis Leukocytosis -- fw on the culture -in the past, he was on merum and completed the course --abx changed from CTX to zosyn, given the above new findings in CXR and CT abdomen.
--- NOTE | 2019-09-29 15:49 | PRG ---
DATE OF SERVICE: 09/29/2019 SUBJECTIVE: Andrae Werner today has not done well over the weekend. Today is Sunday. Over the weekend, he developed nausea and vomiting. NG tube was placed. He had 1130 out on 09/27 and for the 24 hours of 09/28, 700 mL. He has developed some drainage from his lower wound. Laboratories have revealed his white count is mildly elevated at 12. His differential is unremarkable. Hemoglobin 7.6. Basic metabolic profile is normal. Glucose is 120 to 129. Of note is that he has developed some brownish drainage from his inferior incision. Once informed of these changes and with his ongoing ileus, I ordered a CAT scan of the abdomen and pelvis today. This revealed a fluid collection in the right subhepatic area that revealed gallstones and revealed changes near the ileocolic anastomosis. It could reflective of leak. He is on Xarelto, last had a dose last night. I have held this. As he is clinically stable, plan is to initiate Zosyn and obtain a CT-guided drainage of this fluid collection in 48 hours after adequate time on Xarelto. Dr. Barber, Cardiology is following him. OBJECTIVE: LUNGS: Clear to auscultation. CARDIAC: Regular rate and rhythm without murmur or gallop. ABDOMEN: Soft, tenderness in his right upper quadrant with firmness in his right subcostal area consistent with a fluid collection. EXTREMITIES: Unremarkable. Midline wound is well healed, although the inferior wound teja are removed. There was some brownish hematoma fluid that drained. Palpation revealed the fascia to be intact. It does tunnel about 10 cm cephalad in the subcutaneous tissue. Wound Care team has been ordered to place a wound VAC. ASSESSMENT AND PLAN: 1. Prolonged hospitalization with prolonged ileus. Continue total parenteral nutrition. 2. Intraabdominal abscess. Suspect percutaneous drain in 48 hours after adequate time off Xarelto. 3. On Xarelto for atrial fibrillation. 4. Ileus. 5. Malnutrition. Continue total parenteral nutrition. 6. Deconditioning. Continue to work with therapy. Job ID: [id number]
[2019-09-29] MEDS: Melatonin 3 MG TAB PO SCH (20:17)
[2019-09-29] MEDS: Tamsulosin HCl 0.4 MG CAP PO SCH (20:17)
[2019-09-29] MEDS: REMOVE NITRO PATCH TD SCH (20:22)
[2019-09-29] MEDS: [UNRECOGNIZED DRUG - OTHER] IV SCH (22:19)
[2019-09-29] MEDS: STERILE WATER IV SCH (22:19)
[2019-09-29] MEDS: SODIUM ACETATE IV SCH (22:19)
[2019-09-30] MEDS: Acetaminophen 500 MG TAB PO PRN ×2 (00:03→22:38)
[2019-09-30] MEDS: Albuterol Sulfate 2.5 mg/3 ml Neb NEB SCH ×5 (00:34→23:30)
[2019-09-30] MEDS: Piperacillin/Tazobactam 4.5 GM in Sodium Chloride 0.9% 100 ML IVPB SCH ×4 (05:30→22:59)
[2019-09-30] MEDS: HumaLOG 300 UNITS/3 ML VIAL SC PRN ×3 (06:32→17:17)
[2019-09-30] MEDS: FLUoxetine HCl 20 MG CAP PO SCH (08:28)
[2019-09-30] MEDS: Nitroglycerin 0.4mg/Hour PATCH TD SCH (08:28)
[2019-09-30] MEDS: Carvedilol 6.25 MG TAB PO SCH ×2 (08:29→17:17)
[2019-09-30] MEDS: Insulin Glargine 5 UNITS in Pre-Filled Syringe 1 EACH SC SCH (08:29)
[2019-09-30] MEDS: Pantoprazole 40 MG VIAL IVP SCH (08:29)
--- NOTE | 2019-09-30 14:44 | PDOC.HOSPP ---
- Subjective Encounter Date: 09/30/19 Encounter Time: 11:50 Subjective: at bedside. plan for OR visit tomorrow. pt aleeping. discuseed w. about care plan. - Objective Vital Signs & Weight: Vital Signs (12 hours) Temp Pulse Resp BP BP Pulse Ox 09/30/19 12:49 74 14 97 09/30/19 10:50 98.4 F 74 16 141/73 H 97 09/30/19 07:56 97.6 F 76 16 156/69 H 96 09/30/19 07:22 76 16 98 09/30/19 03:35 97.6 F 80 17 101/53 L 94 L Weight Admit Weight 226 lb 14.4 oz Weight 228 lb 9.6 oz Most Recent Monitor Data Heart Rate from ECG 73 NIBP 111/63 NIBP BP-Mean 79 Respiration from ECG 18 SpO2 100 I&O: 09/29/19 09/30/19 10/01/19 06:59 06:59 06:59 Intake Total 888 810 Output Total 700 1000 Balance 188 -190 Result Diagrams: 09/29/19 05:07 09/29/19 05:07 Additional Labs: Accuchecks 09/30/19 09/30/19 09/30/19 10:58 06:22 00:53 POC Glucose 206 H 206 H 211 H 09/29/19 17:39 POC Glucose 141 H Hospitalist ROS - Medication Medications: Active Medications Generic Name Dose Route Start Last Admin Trade Name Freq PRN Reason Stop Dose Admin Acetaminophen 1,000 mg 09/22/19 00:01 09/30/19 00:03 Tylenol PO 1,000 mg Q6H PRN Administration Headache/Fever or Pain Albuterol Sulfate 2.5 mg 09/18/19 19:00 09/30/19 12:49 Ventolin NEB 2.5 mg [id number] KATHYA Administration Carvedilol 12.5 mg 09/24/19 17:00 09/30/19 08:29 Coreg PO 12.5 mg BID-WM KATHYA Administration Fluoxetine HCl 40 mg 09/18/19 09:00 09/30/19 08:28 Prozac PO 40 mg DAILY KATHYA Administration Insulin Glargine 5 units/ 0.05 mls @ 0 mls/hr 09/04/19 09:00 09/30/19 08:29 Miscellaneous Medication SC 0.05 mls QAM KATHYA Administration Sterile Water 200 ml/ Sodium 1,770.7021 mls @ 73.779 mls/hr 09/23/19 22:00 22:19 Acetate 40 meq/ Sodium IV 1,770.7021 mls Chloride 60 meq/ Potassium 2200 KATHYA Administration Chloride 80 meq/ Potassium Phosphate 30 mmol/ Calcium Gluconate 10 meq/ Magnesium Sulfate 10 meq/ Multivitamins 10 ml/ Chromium/Copper/ Manganese/Seleni/Zn 1 ml/ Insulin Human Regular 50 units / Amino Acids/ Dextrose/Water/ Fat Emulsion Intravenous Piperacillin Sod/Tazobactam 100 mls @ 200 mls/hr 09/29/19 12:00 09/30/19 11: 16 Sod 4.5 gm/ Sodium Chloride IVPB 100 mls Q6HR KATHYA Administration Insulin Human Lispro 0 units 08/19/19 15:39 09/30/19 11:16 Humalog SC 4 unit .MODERATE SLIDING SC PRN Administration Moderate Correctional Scale Insulin Human Lispro 0 units 08/19/19 15:39 09/30/19 06:32 Humalog SC 2 units .BEDTIME SLIDING SC PRN Administration Bedtime Correctional Scale Melatonin 3 mg 09/17/19 21:00 09/29/19 20:17 Melatonin PO 3 mg HS KATHYA Administration Nitroglycerin 1 patch 08/26/19 09:00 09/30/19 08:28 Nitro-Dur 0.4mg/Hr Patch TD 1 patch DAILY KATHYA Administration Ondansetron HCl 4 mg 08/19/19 15:39 09/27/19 06:24 Zofran IVP 4 mg Q6H PRN Administration Nausea/Vomiting Pantoprazole Sodium 40 mg 08/28/19 09:00 09/30/19 08:29 Protonix IVP 40 mg DAILY KATHYA Administration Remove Nitro Patch 0 each 09/09/19 21:00 09/29/19 20:22 TD 1 each 2099 KATHYA Administration Sodium Chloride 10 ml 08/19/19 15:39 09/26/19 20:46 Flush - Normal Saline IVF 10 ml PRN PRN Administration Saline Flush Tamsulosin HCl 0.4 mg 09/24/19 21:00 09/29/19 20:17 Flomax PO 0.4 mg HS KATHYA Administration - Exam General Appearance: NAD, awake alert, ill appearing Eye: PERRL ENT: normocephalic atraumatic Neck: supple Heart: RRR Respiratory: CTAB, normal chest expansion Gastrointestinal: soft, distended, diminished bowl sounds Neurological: no focal deficits 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(s): Z79.01 - COURT DEPUTY (CURRENT) USE OF ANTICOAGULANTS Status: Chronic (5) DM type 2 (diabetes mellitus, type 2) Status: Chronic Qualifiers: 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: without truck terminal manager use Diabetes mellitus complication status: with neurologic complications Diabetes mellitus complication detail: with polyneuropathy Qualified Code(s): E11.42 - Type 2 diabetes mellitus with diabetic polyneuropathy (6) Dyslipidemia Code(s): E78.5 - HYPERLIPIDEMIA, UNSPECIFIED Status: Chronic (7) HTN (hypertension) Code(s): I10 - ESSENTIAL (PRIMARY) HYPERTENSION Status: Chronic Qualifiers: Hypertension type: essential hypertension Qualified Code(s): I10 - Essential (primary) hypertension (8) Obesity (BMI 30.0-34.9) Code(s): E66.9 - OBESITY, UNSPECIFIED Status: Chronic (4) Hypophosphatemia Code(s): E83.39 - OTHER DISORDERS OF PHOSPHORUS METABOLISM Status: Acute (2) Hypokalemia Code(s): E87.6 - HYPOKALEMIA Status: Acute Hypokalemia -replaced Atrial fibrillation -rate controlled on oral diltiazem and Coreg. -AC - Xarelto ---------> on hold s/p cscope on s/p polpectomy and some changes in terminal ileum and caecum c/w post-op sux changes. s/p exploratory laporatomy on september 17 R.colectomya dn ileo-colon anastomoses. Continue routine post-op care Full liquids as tolerated------------------------> can advance to diabetic diet , when able. Nutritional support with TPN------->currently cont'd, will wean off when po intake improved. Serial abd exams Increase Coreg 12.5mg BID-----> BP and pulse ok. Pt's Po intake has to improve and should be weaned off TPN prior to considering rehab options would be a candidate for LTAC given the current slow progress. OOB with PT Full code. Persistent ileus - NGT has 200 ml of dark bilious fluid. abdomen distention slightly better. pt is NPO. Transaminitis, mild Cholestasis --may be wi.. ongoing TPN --appreciate gen sux input. - ntr c/s plagin Moderate mal nutrition - with above GI issues as above and less intake -pt cont'd to be NPO and receiving TPN. -getting lytes incl mag, phos levels. Slow improvement. LTAC would be an option. Persistent ileus R. abdomen abscess R. hepatic laceration Multifocal pnemonia. UTI prob.. cholelithiasis Leukocytosis -- fw on the culture -in the past, he was on merum and completed the course --abx changed from CTX to zosyn, given the above new findings in CXR and CT abdomen. OR visit likely tomorrow.
--- NOTE | 2019-09-30 17:08 | PRG ---
DATE OF SERVICE: 09/30/2019 SUBJECTIVE: Andrae Werner is doing well today. OBJECTIVE: VITAL SIGNS: His temperature is 97.7 degrees, heart rate 83, blood pressure 160/73. NG tube output over the last 24 hours is 1000 mL. ABDOMEN: He did have bowel movements. The patient's Xarelto has been held since Sunday. LUNGS: Clear to auscultation. CARDIAC: Regular rate and rhythm. No murmur or gallop. ABDOMEN: Soft. Tenderness in his right upper quadrant with guarding. Midline wound looks good. EXTREMITIES: Unremarkable. ASSESSMENT AND PLAN: The patient is doing well. I have held Xarelto. We will plan CT-guided drainage of peritoneal abscess tomorrow. Hopefully, his ileus will resolve after that. Further, continue TPN for now. Job ID: [id number]
[2019-09-30] MEDS: Melatonin 3 MG TAB PO SCH (22:34)
[2019-09-30] MEDS: Tamsulosin HCl 0.4 MG CAP PO SCH (22:34)
[2019-09-30] MEDS: [UNRECOGNIZED DRUG - OTHER] IV SCH (22:34)
[2019-09-30] MEDS: SODIUM ACETATE IV SCH (22:34)
[2019-09-30] MEDS: STERILE WATER IV SCH (22:34)
[2019-09-30] MEDS: REMOVE NITRO PATCH TD SCH (22:40)
[2019-10-01] MEDS: Piperacillin/Tazobactam 4.5 GM in Sodium Chloride 0.9% 100 ML IVPB SCH ×4 (05:49→23:43)
[2019-10-01 06:06] LABS: Band 19 % (5-11); Eosinophils 3 % (0-10); Hemoglobin 7.2 g/dL (14.0-18.0); Lymphocytes 10 % (21-51); MDiff Complete? YES; Mean Corpuscular HGB CONC 30.4 g/dL (32.0-36.0); Mean Corpuscular Hemoglobin 28.2 pg (27.0-31.0); Mean Corpuscular Volume 92.5 fL (78.0-98.0); Mean Platelet Volume 10.1 fL (7.4-10.4); Monocytes 1 % (0-10); Neutrophil 66 % (42-75); Platelet Count 229 thou/uL (130-400); Platelet Morphology Comment Appears Adequate; RBC Distribution Width 12.8 % (11.5-14.5); Red Blood Cell (RBC) Count 2.55 mill/uL (4.70-6.10); White Blood Cell (WBC) Count 17.7 thou/uL (4.8-10.8)
[2019-10-01 06:12] LABS: ALT (SGPT) 136 U/L (8-55); AST (SGOT) 87 U/L (5-34); Albumin 1.9 g/dL (3.4-4.8); Alkaline Phosphatase 150 U/L (40-110); Anion Gap 9 mmol/L (10-20); BUN (Urea Nitrogen) 20 mg/dL (8.4-25.7); Bilirubin, Total 0.7 mg/dL (0.2-1.2); Calc. Creatinine Clearance 125 mL/min (70-130); Calcium 7.6 mg/dL (7.8-10.44); Carbon Dioxide 24 mmol/L (23-31); Chloride 108 mmol/L (98-107); Estimated GFR-MDRD Greater than 90; Globulin 4.1 g/dL (2.4-3.5); Glucose 132 mg/dL (83-110); Magnesium 1.9 mg/dL (1.6-2.6); Phosphorus 3.9 mg/dL (2.3-4.7); Potassium 4.1 mmol/L (3.5-5.1); Sodium 137 mmol/L (136-145)
[2019-10-01] MEDS: Albuterol Sulfate 2.5 mg/3 ml Neb NEB SCH ×4 (07:15→23:14)
[2019-10-01] MEDS: Acetaminophen 500 MG TAB PO PRN (08:28)
[2019-10-01] MEDS: Insulin Glargine 5 UNITS in Pre-Filled Syringe 1 EACH SC SCH (08:28)
[2019-10-01] MEDS: FLUoxetine HCl 20 MG CAP PO SCH (08:28)
[2019-10-01] MEDS: Carvedilol 6.25 MG TAB PO SCH ×2 (08:29→17:46)
[2019-10-01] MEDS: Nitroglycerin 0.4mg/Hour PATCH TD SCH (08:29)
[2019-10-01] MEDS: Pantoprazole 40 MG VIAL IVP SCH (08:29)
[2019-10-01] MEDS ORDERED: Sodium Bicarbonate 2.5 MEQ/5 ML VIAL ONE (09:09)
[2019-10-01] MEDS ORDERED: Midazolam HCl 2 mg/2 ml Vial ONE (09:13)
[2019-10-01] MEDS ORDERED: Fentanyl 100 MCG/2 ML VIAL ONE (09:13)
--- NOTE | 2019-10-01 11:38 | PDOC.GSPN ---
Surgery Progress Note: Subj - Subjective Narrative: Patient denies abdominal pain or nausea. He states that he is passing gas. He seems drowsy today but his states that before he went down for his CT- guided drainage he was alert and normal. He did have a low-grade fever last night and his white count is up to 17,000 today. Hopefully this will come down status post drainage of his abscess. He has some mild tenderness to palpation at his incision but is otherwise without tenderness and his abdomen is nondistended. He has light green drainage from his NG tube. Assessment/plan: Status post extensive lysis of adhesions and right hemicolectomy for recurrent obstruction. He has an intra-abdominal abscess in the right paracolic gutter which was percutaneously drained today. There was a delay in obtaining drainage due to anticoagulation issues, and the patient did have a rise in his temperature and white count, but hopefully this will resolve status post drainage. There is some bloody drainage in the bag and cultures are pending. Continue antibiotics TPN bowel rest and NG drainage. No new recommendations. Surgery Progress Note: Obj - Vital signs Vital signs: Vital Signs - Most Recent Temp Pulse Resp BP Pulse Ox 97.6 F 68 14 140/65 100 10/01/19 07:13 10/01/19 07:15 10/01/19 07:15 10/01/19 07:13 10/01/19 07:15 Surgery Progress Note: Results - Labs Result Diagrams: 10/01/19 05:37 10/01/19 05:37 Lab results: Laboratory Results - last 24 hr 10/01/19 10/01/19 10/01/19 00:49 05:37 05:37 WBC 17.7 H RBC 2.55 L Hgb 7.2 L Hct 23.6 L MCV 92.5 MCH 28.2 MCHC 30.4 L RDW 12.8 Plt Count 229 MPV 10.1 Neutrophils % (Manual) 66 Band Neuts % (Manual) 19 H Lymphocytes % (Manual) 10 L Monocytes % (Manual) 1 Eosinophils % (Manual) 3 Basophils % (Manual) 1 Plt Morphology Comment Appears Adequate Sodium 137 Potassium 4.1 Chloride 108 H Carbon Dioxide 24 Anion Gap 9 L BUN 20 Creatinine 0.75 Estimated GFR (MDRD) Greater than 90 Glucose 132 H POC Glucose 151 H Calcium 7.6 L Phosphorus 3.9 Magnesium 1.9 Total Bilirubin 0.7 AST 87 H ALT 136 H Alkaline Phosphatase 150 H Serum Total Protein 6.0 Albumin 1.9 L Globulin 4.1 H Albumin/Globulin Ratio 0.5 L 10/01/19 10/01/19 05:39 10:56 WBC RBC Hgb Hct MCV MCH MCHC RDW Plt Count MPV Neutrophils % (Manual) Band Neuts % (Manual) Lymphocytes % (Manual) Monocytes % (Manual) Eosinophils % (Manual) Basophils % (Manual) Plt Morphology Comment Sodium Potassium Chloride Carbon Dioxide Anion Gap BUN Creatinine Estimated GFR (MDRD) Glucose POC Glucose 133 H 186 H Calcium Phosphorus Magnesium Total Bilirubin AST ALT Alkaline Phosphatase Serum Total Protein Albumin Globulin Albumin/Globulin Ratio
[2019-10-01] MEDS: Fluconazole In NaCl,Iso-Osm 400 MG in Premix Bag 1 BAG IVPB SCH (11:51)
[2019-10-01] MEDS: HumaLOG 300 UNITS/3 ML VIAL SC PRN (11:51)
--- NOTE | 2019-10-01 13:19 | CT ---
CT-guided abdominal abscess drainage HISTORY: Abdominal abscess FINDINGS: After explaining the procedure and answering all questions, limited CT imaging of the abdom en was performed. Sterile technique, buffered local anesthesia, CT guidance, and a right anterior approach were used to carefully advance a 19-gauge needle into the locular abscess fluid collection t he right abdomen. Guidewire was placed and tract dilated to 8 American. A locking loop 8 American drain catheter was placed into the fluid collection. A total volume of 150 cc of dark red foul-smelling liquid was drained. A portion sent to laboratory for analysis. The catheter was secured internally and externally with 0 silk suture and left draining to gravity. Patient tolerated the procedure well and was returned in unchanged condition. IMPRESSION : Technically successful CT-guided drainage right abdominal abscess.
--- NOTE | 2019-10-01 15:19 | PRG ---
DATE OF SERVICE: 10/01/2019 SUBJECTIVE: I was asked by Dr. Hagan to follow up on him because of development of complications. As previously noted, Mr. Werner has a history of vascular disease with prior CVA, coronary artery disease, pulmonary embolism, as well as chronic left hemiplegia. He developed hypotension abnormalities on CT abdomen and pelvis with reference to small bowel and colon. He was placed on broad-spectrum antimicrobial coverage. Eventually, he underwent laparoscopic evaluation, and he did have adhesions and bowel obstruction because of that. He underwent initial procedure on August 27, 2019, and he developed recurrence of the problem and had another one on September 17. This time was an open laparotomy and he required resection of a segment of ascending colon and reanastomosis. Unfortunately, the patient has developed inflammatory change, worsening neutrophilia, and fever. The abdomen remains soft, but repeat CT scan showed abscesses in the operative site. One abscess was located in the area of the suture line. It measured 1.2 cm with a focus of gas around it, and djacent there was a rim-enhancing fluid collection in the right paracolic gutter suspicious for an abscess measuring 10 cm x 4.8 x 10 cm. There was a possible right hepatic laceration noted. Another collection deep in the midline abdomen posterior to the small bowel, best seen on image 55 measuring 8.3 x 2.3 x 10.9 cm. There was extensive atherosclerotic calcification of abdominal aorta and branches. There was a sclerotic lesion in the sacrum. The patient himself actually does not have major symptoms. OBJECTIVE: VITAL SIGNS: His T-max was 100.4 at 8 p.m. yesterday. He is now 97.6. He has had intermittent low-grade temperature elevation. BP 140/65, respiratory rate 14, pulse 60, and O2 saturations are 100%. SKIN: Shows the midline incision with one area of opening in the lower segment of the abdominal midline incision. HEENT: His ocular movements are conjugate. Oral cavity is unremarkable. LUNGS: Symmetric air entry with faint basilar crackles on the right side. HEART: S1 and S2, regular rate. ABDOMEN: Soft with mild tenderness in the midline area. GENITOURINARY: He is voiding in the diaper. His I's and O's are alternately positive and negative anywhere from 100 to 200s. EXTREMITIES: He has some edema in lower extremities. LABORATORY DATA: White cell count is up from 9.3 on September 20 up to 17.7 on September 30. Platelets are up from 142 to 229 and hemoglobin is stable at 7.2. The bands are were 8 on September 09 and went up to 28 on September 17, and now they are measured again at 19%. Renal function is normal with creatinine 0.75. AST 87, ALT 136, alkaline phosphatase 150, and it represents an elevation compared with prior. He has had 2 COVID PCRs not detected and blood cultures were not done recently. He is on TPN through a central line. ASSESSMENT: Peripheral vascular disease; coronary artery disease; strictures with bowel obstruction requiring 2 interventions, the last one was an open laparotomy with right colon hemicolectomy, likely a small area of leakage with 2 inflammatory collections in the abdominal area, one in the midline and the other one at the right side in the paracolic gutter; worsening neutrophilia with bandemia; low-grade temperature elevation in the setting of total parenteral nutrition administration. DISCUSSION: The patient will have attempted radiological aspirate of the abscesses, in the meantime I would add coverage for Rita species since he is at high risk for development of this complication. This could be carried out with Diflucan administration 400 mg daily. We may have to add other alternate antimicrobial drugs such as meropenem or vancomycin depending on clinical progress. It may not be necessary though. Once source control is achieved, we could then discontinue antimicrobial therapy according to the laboratory and clinical progress. Job ID: [id number] MTDD
--- NOTE | 2019-10-01 15:29 | PDOC.HOSPP ---
- Subjective Encounter Date: 10/01/19 Encounter Time: 11:20 Subjective: seen w.. [facility], nearby. s/p abscess drain. temp, and high wbcs but neutrophilia w.. bandemia. - Objective Vital Signs & Weight: Vital Signs (12 hours) Temp Pulse Resp BP Pulse Ox 10/01/19 10:46 97.6 F 66 12 159/67 H 96 10/01/19 07:15 68 14 100 10/01/19 07:13 97.6 F 68 12 140/65 100 Weight Admit Weight 226 lb 14.4 oz Weight 228 lb 9.6 oz Most Recent Monitor Data Heart Rate from ECG 73 NIBP 111/63 NIBP BP-Mean 79 Respiration from ECG 18 SpO2 100 I&O: 09/30/19 10/01/19 10/02/19 06:59 06:59 06:59 Intake Total 810 1084.4 Output Total 1000 450 Balance -190 634.4 Result Diagrams: 10/01/19 05:37 10/01/19 05:37 Additional Labs: Accuchecks 10/01/19 10/01/19 10/01/19 10:56 05:39 00:49 POC Glucose 186 H 133 H 151 H 09/30/19 17:21 POC Glucose 170 H Hospitalist ROS - Medication Medications: Active Medications Generic Name Dose Route Start Last Admin Trade Name Freq PRN Reason Stop Dose Admin Acetaminophen 1,000 mg 09/22/19 00:01 10/01/19 08:28 Tylenol PO 1,000 mg Q6H PRN Administration Headache/Fever or Pain Albuterol Sulfate 2.5 mg 09/18/19 19:00 10/01/19 15:18 Ventolin NEB Not Given [id number] KATHYA Carvedilol 12.5 mg 09/24/19 17:00 10/01/19 08:29 Coreg PO 12.5 mg BID-WM KATHYA Administration Fluoxetine HCl 40 mg 09/18/19 09:00 10/01/19 08:28 Prozac PO 40 mg DAILY KATHYA Administration Insulin Glargine 5 units/ 0.05 mls @ 0 mls/hr 09/04/19 09:00 10/01/19 08:28 Miscellaneous Medication SC 0.05 mls QAM KATHYA Administration Sterile Water 200 ml/ Sodium 1,770.7021 mls @ 73.779 mls/hr 09/23/19 22:00 22:34 Acetate 40 meq/ Sodium IV 1,770.7021 mls Chloride 60 meq/ Potassium 2200 KATHYA Administration Chloride 80 meq/ Potassium Phosphate 30 mmol/ Calcium Gluconate 10 meq/ Magnesium Sulfate 10 meq/ Multivitamins 10 ml/ Chromium/Copper/ Manganese/Seleni/Zn 1 ml/ Insulin Human Regular 50 units / Amino Acids/ Dextrose/Water/ Fat Emulsion Intravenous Piperacillin Sod/Tazobactam 100 mls @ 200 mls/hr 09/29/19 12:00 10/01/19 11: 51 Sod 4.5 gm/ Sodium Chloride IVPB 100 mls Q6HR KATHYA Administration Fluconazole/Sodium Chloride 200 mls @ 100 mls/hr 10/01/19 12:00 10/01/19 11: 51 400 mg/ Device IVPB 200 mls 1200 KATHYA Administration Insulin Human Lispro 0 units 08/19/19 15:39 10/01/19 11:51 Humalog SC 2 unit .MODERATE SLIDING SC PRN Administration Moderate Correctional Scale Insulin Human Lispro 0 units 08/19/19 15:39 09/30/19 06:32 Humalog SC 2 units .BEDTIME SLIDING SC PRN Administration Bedtime Correctional Scale Melatonin 3 mg 09/17/19 21:00 09/30/19 22:34 Melatonin PO 3 mg HS KATHYA Administration Nitroglycerin 1 patch 08/26/19 09:00 10/01/19 08:29 Nitro-Dur 0.4mg/Hr Patch TD 1 patch DAILY KATHYA Administration Ondansetron HCl 4 mg 08/19/19 15:39 09/27/19 06:24 Zofran IVP 4 mg Q6H PRN Administration Nausea/Vomiting Pantoprazole Sodium 40 mg 08/28/19 09:00 10/01/19 08:29 Protonix IVP 40 mg DAILY KATHYA Administration Remove Nitro Patch 0 each 09/09/19 21:00 09/30/19 22:40 TD 1 each 2100 KATHYA Administration Sodium Chloride 10 ml 08/19/19 15:39 09/26/19 20:46 Flush - Normal Saline IVF 10 ml PRN PRN Administration Saline Flush Tamsulosin HCl 0.4 mg 09/24/19 21:00 09/30/19 22:34 Flomax PO 0.4 mg HS KATHYA Administration - Exam General Appearance: ill appearing Eye: PERRL ENT: normocephalic atraumatic Neck: supple Heart: RRR Respiratory: CTAB, normal chest expansion Gastrointestinal: tender to palpation, diminished bowl sounds Gastrointestinal - other findings: s/p retroperit..abscess drain Neurological: no focal deficits 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(s): Z79.01 - HALF-WAY (CURRENT) USE OF ANTICOAGULANTS Status: Chronic (5) DM type 2 (diabetes mellitus, type 2) Status: Chronic 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: 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 home 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 Diabetes mellitus complication status: with neurologic complications Diabetes mellitus complication detail: with polyneuropathy Qualified Code(s): E11.42 - Type 2 diabetes mellitus with diabetic polyneuropathy (6) Dyslipidemia Code(s): E78.5 - HYPERLIPIDEMIA, UNSPECIFIED Status: Chronic (7) HTN (hypertension) Code(s): I10 - ESSENTIAL (PRIMARY) HYPERTENSION Status: Chronic Qualifiers: Hypertension type: essential hypertension Qualified Code(s): I10 - Essential (primary) hypertension (8) Obesity (BMI 30.0-34.9) Code(s): E66.9 - OBESITY, UNSPECIFIED Status: Chronic (4) Hypophosphatemia Code(s): E83.39 - OTHER DISORDERS OF PHOSPHORUS METABOLISM Status: Acute (2) Hypokalemia Code(s): E87.6 - HYPOKALEMIA Status: Acute Hypokalemia -replaced Atrial fibrillation -rate controlled on oral diltiazem and Coreg. -AC - Xarelto ---------> on s/p cscope on s/p polpectomy and some changes in terminal ileum and caecum c/w post-op sux changes. s/p exploratory laporatomy on september 17 R.colectomya dn ileo-colon anastomoses. Continue routine post-op care Full liquids as tolerated------------------------> can advance to diabetic diet , when able. Nutritional support with TPN------->currently cont'd, will wean off when po intake improved. Serial abd exams Increase Coreg 12.5mg BID-----> BP and pulse ok. Pt's Po intake has to improve and should be weaned off TPN prior to considering rehab options would be a candidate for LTAC given the current slow progress. OOB with PT Full code. Persistent ileus - NGT has 200 ml of dark bilious fluid. abdomen distention slightly better. pt is NPO. Transaminitis, mild Cholestasis --may be wi.. ongoing TPN --appreciate gen sux input. - ntr c/s plagin Moderate mal nutrition - with above GI issues as above and less intake -pt cont'd to be NPO and receiving TPN. -getting lytes incl mag, phos levels. Slow improvement. LTAC would be an option. Persistent ileus R. abdomen abscess R. hepatic laceration Multifocal pnemonia. UTI prob.. cholelithiasis Leukocytosis -- fw on the culture -in the past, he was on merum and completed the course --abx changed from CTX to zosyn, given the above new findings in CXR and CT abdomen. sepsis 2/2 R. abdomen abscess [temp, and high wbcs but neutrophilia w.. bandemia. ] s/p drain of R. abdomen abscess - fw on the blood wanda -diflucan started, given high risk for fungemia [fever and on TPN for a while] [facility] would be [facility].
[2019-10-01] MEDS ORDERED: Morphine 2 MG/ML VIAL SLOW IVP PRN (16:56)
[2019-10-01 19:37] LABS: Body Fluid Source Abscess Fluid
[2019-10-01 19:38] LABS: BF Color Brown; Clarity Cloudy/Turbid (Clear)
[2019-10-01] MEDS: STERILE WATER IV SCH (22:11)
[2019-10-01] MEDS: [UNRECOGNIZED DRUG - OTHER] IV SCH (22:11)
[2019-10-01] MEDS: REMOVE NITRO PATCH TD SCH (22:11)
[2019-10-01] MEDS: SODIUM ACETATE IV SCH (22:11)
[2019-10-01] MEDS: Melatonin 3 MG TAB PO SCH (22:11)
[2019-10-01] MEDS: Tamsulosin HCl 0.4 MG CAP PO SCH (22:11)
[2019-10-02] MEDS: Piperacillin/Tazobactam 4.5 GM in Sodium Chloride 0.9% 100 ML IVPB SCH ×3 (05:51→18:30)
[2019-10-02] MEDS: Albuterol Sulfate 2.5 mg/3 ml Neb NEB SCH (06:28)
[2019-10-02] MEDS ORDERED: Activase 2 MG VIAL CATH SCH (06:30)
[2019-10-02] MEDS ORDERED: Sterile Water 10 ML VIAL IVP SCH (06:30)
[2019-10-02 07:05] LABS: #Eosinphils 0.4 thou/uL (0.0-0.7); #Lymphocytes 1.7 thou/uL (1.20-3.40); #Monocytes 0.7 thou/uL (0.11-0.59); #Neutrophils 9.1 thou/uL (1.40-6.50); %Basophils 0.2 % (0.0-1.0); %Eosinophils 3.7 % (0.0-10.0); %Lymphocytes 14.6 % (21.0-51.0); %Monocytes 5.6 % (0.0-10.0); %Neutrophils 75.9 % (42.0-75.0); Hemoglobin 7.5 g/dL (14.0-18.0); Mean Corpuscular HGB CONC 32.1 g/dL (32.0-36.0); Mean Corpuscular Hemoglobin 30.5 pg (27.0-31.0); Mean Corpuscular Volume 94.8 fL (78.0-98.0); Platelet Count 248 thou/uL (130-400); RBC Distribution Width 12.9 % (11.5-14.5); Red Blood Cell (RBC) Count 2.45 mill/uL (4.70-6.10)
[2019-10-02 07:26] LABS: ALT (SGPT) 148 U/L (8-55); AST (SGOT) 85 U/L (5-34); Alkaline Phosphatase 182 U/L (40-110); Anion Gap 12 mmol/L (10-20); BUN (Urea Nitrogen) 17 mg/dL (8.4-25.7); Bilirubin, Direct 0.6 mg/dL (0.1-0.3); Bilirubin, Total 0.7 mg/dL (0.2-1.2); Calc. Creatinine Clearance 136 mL/min (70-130); Calcium 7.6 mg/dL (7.8-10.44); Carbon Dioxide 20 mmol/L (23-31); Chloride 108 mmol/L (98-107); Estimated GFR-MDRD Greater than 90; Glucose 103 mg/dL (83-110); Potassium 4.2 mmol/L (3.5-5.1); Protein, Total 6.1 g/dL (5.8-8.1); Sodium 136 mmol/L (136-145)
[2019-10-02] MEDS: Insulin Glargine 5 UNITS in Pre-Filled Syringe 1 EACH SC SCH (10:04)
[2019-10-02] MEDS: Carvedilol 6.25 MG TAB PO SCH ×2 (10:06→18:29)
[2019-10-02] MEDS: FLUoxetine HCl 20 MG CAP PO SCH (10:06)
[2019-10-02] MEDS: Nitroglycerin 0.4mg/Hour PATCH TD SCH (10:06)
[2019-10-02] MEDS: Pantoprazole 40 MG VIAL IVP SCH (10:07)
[2019-10-02] MEDS ORDERED: Albuterol Sulfate 2.5 mg/3 ml Neb NEB PRN (10:54)
[2019-10-02] MEDS: Fluconazole In NaCl,Iso-Osm 400 MG in Premix Bag 1 BAG IVPB SCH (11:47)
[2019-10-02] MEDS ORDERED: MD-Gastroview 120 ML BOT ONE (12:21)
--- NOTE | 2019-10-02 12:43 | PDOC.HOSPP ---
- Subjective Encounter Date: 10/02/19 Encounter Time: 09:50 Subjective: abd drain -- not much output, NGT output also very little, Bowel sounds Present. wbcs trending down. at bedside. - Objective Vital Signs & Weight: Vital Signs (12 hours) Temp Pulse Resp BP BP BP Pulse Ox 10/02/19 11:38 98.6 F 69 14 156/78 H 95 10/02/19 10:06 154/76 H 10/02/19 07:43 98 F 75 14 154/76 H 96 10/02/19 04:16 98.7 F 71 16 152/79 H 96 Weight Admit Weight 226 lb 14.4 oz Weight 228 lb 9.6 oz Most Recent Monitor Data Heart Rate from ECG 73 NIBP 111/63 NIBP BP-Mean 79 Respiration from ECG 18 SpO2 100 I&O: 10/01/19 10/02/19 10/03/19 06:59 06:59 06:59 Intake Total 1084.4 1284.4 Output Total 450 535 Balance 634.4 749.4 Result Diagrams: 10/02/19 06:57 10/02/19 06:57 Additional Labs: Accuchecks 10/02/19 10/02/19 10/02/19 11:17 06:17 06:08 POC Glucose 150 H 116 H 64 L 10/01/19 10/01/19 20:46 17:49 POC Glucose 161 H 142 H Hospitalist ROS - Medication Medications: Active Medications Generic Name Dose Route Start Last Admin Trade Name Freq PRN Reason Stop Dose Admin Acetaminophen 1,000 mg 09/22/19 00:01 10/01/19 08:28 Tylenol PO 1,000 mg Q6H PRN Administration Headache/Fever or Pain Carvedilol 12.5 mg 09/24/19 17:00 10/02/19 10:06 Coreg PO 12.5 mg BID-WM KATHYA Administration Fluoxetine HCl 40 mg 09/18/19 09:00 10/02/19 10:06 Prozac PO 40 mg DAILY KATHYA Administration Insulin Glargine 5 units/ 0.05 mls @ 0 mls/hr 09/04/19 09:00 10/02/19 10:04 Miscellaneous Medication SC 0.05 mls QAM KATHYA Administration Sterile Water 200 ml/ Sodium 1,770.7021 mls @ 73.779 mls/hr 09/23/19 22:00 22:11 Acetate 40 meq/ Sodium IV 1,770.7021 mls Chloride 60 meq/ Potassium 2200 KATHYA Administration Chloride 80 meq/ Potassium Phosphate 30 mmol/ Calcium Gluconate 10 meq/ Magnesium Sulfate 10 meq/ Multivitamins 10 ml/ Chromium/Copper/ Manganese/Seleni/Zn 1 ml/ Insulin Human Regular 50 units / Amino Acids/ Dextrose/Water/ Fat Emulsion Intravenous Piperacillin Sod/Tazobactam 100 mls @ 200 mls/hr 09/29/19 12:00 10/02/19 11: 47 Sod 4.5 gm/ Sodium Chloride IVPB 100 mls Q6HR KATHYA Administration Fluconazole/Sodium Chloride 200 mls @ 100 mls/hr 10/01/19 12:00 10/02/19 11: 47 400 mg/ Device IVPB 200 mls 1200 KATHYA Administration Insulin Human Lispro 0 units 08/19/19 15:39 10/01/19 11:51 Humalog SC 2 unit .MODERATE SLIDING SC PRN Administration Moderate Correctional Scale Insulin Human Lispro 0 units 08/19/19 15:39 09/30/19 06:32 Humalog SC 2 units .BEDTIME SLIDING SC PRN Administration Bedtime Correctional Scale Melatonin 3 mg 09/17/19 21:00 10/01/19 22:11 Melatonin PO 3 mg HS KATHYA Administration Morphine Sulfate 1 mg 10/01/19 16:56 10/01/19 17:46 Morphine SLOW IVP 10/02/19 16:00 1 mg Q8H PRN Administration Pain Nitroglycerin 1 patch 08/26/19 09:00 10/02/19 10:06 Nitro-Dur 0.4mg/Hr Patch TD 1 patch DAILY KATHYA Administration Ondansetron HCl 4 mg 08/19/19 15:39 09/27/19 06:24 Zofran IVP 4 mg Q6H PRN Administration Nausea/Vomiting Pantoprazole Sodium 40 mg 08/28/19 09:00 10/02/19 10:07 Protonix IVP 40 mg DAILY KATHYA Administration Remove Nitro Patch 0 each 09/09/19 21:00 10/01/19 22:11 TD 1 each 2100 KATHYA Administration Sodium Chloride 10 ml 08/19/19 15:39 09/26/19 20:46 Flush - Normal Saline IVF 10 ml PRN PRN Administration Saline Flush Tamsulosin HCl 0.4 mg 09/24/19 21:00 10/01/19 22:11 Flomax PO 0.4 mg HS KATHYA Administration - Exam General Appearance: NAD, awake alert, ill appearing Eye: PERRL, anicteric sclera Neck: supple Heart: RRR Respiratory: CTAB Gastrointestinal: distended, diminished bowl sounds Neurological: no focal deficits Psychiatric: A&O x 3 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(s): Z79.01 - LONG-TERM (CURRENT) USE OF ANTICOAGULANTS Status: Chronic (5) DM type 2 (diabetes mellitus, type 2) Status: Chronic Qualifiers: Diabetes mellitus terminal operator insulin use: without terminal operator use Diabetes mellitus complication status: with neurologic complications Diabetes mellitus complication detail: with polyneuropathy Qualified Code(s): E11.42 - Type 2 diabetes mellitus with diabetic polyneuropathy (6) Dyslipidemia Code(s): E78.5 - HYPERLIPIDEMIA, UNSPECIFIED Status: Chronic (7) HTN (hypertension) Code(s): I10 - ESSENTIAL (PRIMARY) HYPERTENSION Status: Chronic Qualifiers: Hypertension type: essential hypertension Qualified Code(s): I10 - Essential (primary) hypertension (8) Obesity (BMI 30.0-34.9) Code(s): E66.9 - OBESITY, UNSPECIFIED Status: Chronic (4) Hypophosphatemia Code(s): E83.39 - OTHER DISORDERS OF PHOSPHORUS METABOLISM Status: Acute (2) Hypokalemia Code(s): E87.6 - HYPOKALEMIA Status: Acute Hypokalemia -replaced Atrial fibrillation -rate controlled on oral diltiazem and Coreg. -AC - Xarelto ---------> on hold s/p cscope on s/p polpectomy and some changes in terminal ileum and caecum c/w post-op sux changes. s/p exploratory laporatomy on september 17 R.colectomya dn ileo-colon anastomoses. Continue routine post-op care Full liquids as tolerated------------------------> can advance to diabetic diet , when able. Nutritional support with TPN------->currently cont'd, will wean off when po intake improved. Serial abd exams Increase Coreg 12.5mg BID-----> BP and pulse ok. Pt's Po intake has to improve and should be weaned off TPN prior to considering rehab options would be a candidate for LTAC given the current slow progress. OOB with PT Full code. Persistent ileus - NGT has 200 ml of dark bilious fluid. abdomen distention slightly better. pt is NPO. Transaminitis, mild Cholestasis --may be wi.. ongoing TPN --appreciate gen sux input. - ntr c/s plagin Moderate mal nutrition - with above GI issues as above and less intake -pt cont'd to be NPO and receiving TPN. -getting lytes incl mag, phos levels. Slow improvement. LTAC would be an option. Persistent ileus R. abdomen abscess R. hepatic laceration Multifocal pnemonia. UTI prob.. cholelithiasis Leukocytosis -- fw on the culture -in the past, he was on merum and completed the course --abx changed from CTX to zosyn, given the above new findings in CXR and CT abdomen. sepsis 2/2 R. abdomen abscess [temp, and high wbcs but neutrophilia w.. bandemia. ] s/p drain of R. abdomen abscess - fw on the blood wanda -diflucan started, given high risk for fungemia [fever and on TPN for a while] abd drain -- not much output, NGT output also very little, wbcs trending down. terminal operator plan would be LTAC.
--- NOTE | 2019-10-02 14:09 | PRG ---
DATE OF SERVICE: SUBJECTIVE: Andrae Werner seems to be doing better today. He has had multiple bowel movements. He is feeling better. He is frustrated with his NG tube. Temperature 98.6 degrees, pulse 69, blood pressure 156/78. As stated above, he has had bowel movements. Percutaneous drain placed yesterday. Has about 450 mL out last 24 hours. Nurses are irrigating it three times a day with saline. Upon placement of the drain, cultures reveal gram-negative diallo. He is on Zosyn. OBJECTIVE: LUNGS: Clear to auscultation. CARDIAC: Regular rate and rhythm. No murmur or gallop. ABDOMEN: Soft, less distended, less tympanitic. Positive bowel sounds plus bowel movements. Midline wound looks good. ASSESSMENT AND PLAN: Intraabdominal abscess, status post drainage. Expect that he will be discharged home on Augmentin. NG tube output has decreased to less than 400 mL over the last 24 hours. We will obtain his small-bowel follow-through. I have personally reviewed his CT scans over the last few days and the ileus is improved relative to the past. He has had so many attempts at NG tube removal that would like to confirm that gastrointestinal function is good prior to removing the NG tube and await small-bowel follow-through. Continue TPN and antibiotics. Await small-bowel follow-through. Job ID: [id number]
[2019-10-02] MEDS: HumaLOG 300 UNITS/3 ML VIAL SC PRN (18:32)
--- NOTE | 2019-10-02 18:33 | RAD ---
SMALL BOWEL EXAM: 10/02/19 INDICATION: Small bowel obstruction. On the pipe washer view, contrast is seen in the left colon. There is gas filled dilated loops of small bow el in the mid abdomen. Contrast was given via an NG tube and sequential images were obtained. At one hour, there is no signi ficant opacification of the small bowel. A three hour film was obtained and there is contrast opacification of the dilated bowel in the mid ab domen. No contrast in the right colon. The small bowel exam is stopped at three hours. Follow-up KUB can be requested as indicated. IMPRESSION: Evidence of high grade bowel obstruction at three hours. POS: AGW
[2019-10-02] MEDS: Acetaminophen 500 MG TAB PO PRN (21:59)
[2019-10-02] MEDS: Melatonin 3 MG TAB PO SCH (22:00)
[2019-10-02] MEDS: Tamsulosin HCl 0.4 MG CAP PO SCH (22:00)
[2019-10-02] MEDS: REMOVE NITRO PATCH TD SCH (22:00)
[2019-10-02] MEDS: hydrALAZINE 20 MG/ML VIAL SLOW IVP PRN (22:06)
[2019-10-02] MEDS: [UNRECOGNIZED DRUG - OTHER] IV SCH (22:36)
[2019-10-02] MEDS: SODIUM ACETATE IV SCH (22:36)
[2019-10-02] MEDS: STERILE WATER IV SCH (22:36)
[2019-10-03] MEDS: Piperacillin/Tazobactam 4.5 GM in Sodium Chloride 0.9% 100 ML IVPB SCH ×5 (00:36→23:01)
[2019-10-03] MEDS: hydrALAZINE 20 MG/ML VIAL SLOW IVP PRN (06:20)
[2019-10-03 06:36] LABS: ALT (SGPT) 239 U/L (8-55); AST (SGOT) 159 U/L (5-34); Albumin 2.1 g/dL (3.4-4.8); Alkaline Phosphatase 233 U/L (40-110); Bilirubin, Direct 0.4 mg/dL (0.1-0.3); Bilirubin, Total 0.5 mg/dL (0.2-1.2); Protein, Total 6.7 g/dL (5.8-8.1)
--- NOTE | 2019-10-03 08:32 | RAD ---
XR Abdomen 2 View History: Small bowel obstruction Comparison: Radiograph prior day Findings: Rectal contrast is similar. Pigtail catheter the right hemiabdomen. There are dilated air-f illed loops of small bowel with air-fluid levels on the decubitus view. Enteric tube tip in gastric antrum. Impression: Continued small bowel obstruction.
[2019-10-03] MEDS: Insulin Glargine 5 UNITS in Pre-Filled Syringe 1 EACH SC SCH (09:33)
[2019-10-03] MEDS: Carvedilol 6.25 MG TAB PO SCH ×2 (09:34→18:40)
[2019-10-03] MEDS: FLUoxetine HCl 20 MG CAP PO SCH (09:34)
[2019-10-03] MEDS: Nitroglycerin 0.4mg/Hour PATCH TD SCH (09:34)
[2019-10-03] MEDS: Pantoprazole 40 MG VIAL IVP SCH (09:45)
[2019-10-03] MEDS: Fluconazole In NaCl,Iso-Osm 400 MG in Premix Bag 1 BAG IVPB SCH (12:23)
--- NOTE | 2019-10-03 12:35 | SPC ---
PICC PLACEMENT ULTRASOUND-GUIDED VENOUS ACCESS: (Peripherally inserted central catheter) DATE: 10/03/2019 HISTORY: 73-year-old male with small bowel obstruction requires PICC for TPN (total parenteral nutrition) TECHNIQUE: Catheter caliber: 5 Albanian Catheter trim length:45.5 cm Catheter lumen number:double Catheter tip location:Superior vena cava/right atrial junction Vein accessed:left basilic Total fluoroscopy time: 0.2 min. Dose area product: 1185 mGy*cm^2 Signed, informed consent was obtained. A tourniquet was applied at the proximal aspect of the arm. Th e arm was prepped and draped in the usual sterile fashion. A 25-gauge needle was used to applied buffered lidocaine superficially. The vein was punctured with a 21-gauge micropuncture needle under u ltrasound guidance. A 0.018 inch guidewire was advanced through the micropuncture needle and into the vein. Under fluoroscopic guidance, the guidewire was advanced to the superior vena cava. The PICC was flushed and trimmed to the appropriate length. The micropuncture needle was exchanged over the guidewire for a 5 Albanian peel-away dilator sheath. The dilator was exchanged over the guidewire for t he PICC, which was then further advanced under fluoroscopy. The sheath and guidewire were removed. The PICC was flushed again and secured in place at the arm after adjustment of tip position. The meng ent tolerated the procedure well. There was no complication. IMPRESSION: Successful placement of PICC (peripherally inserted central catheter).
--- NOTE | 2019-10-03 13:36 | PRG ---
DATE OF SERVICE: 10/03/2019 SUBJECTIVE: Andrae Werner is doing well today, although slightly depressed because of persistent NG tube needs. OBJECTIVE: VITAL SIGNS: Temperature 98.6 degrees, heart rate 75, blood pressure 139/75. LUNGS: Clear to auscultation. CARDIAC: Regular rate and rhythm without murmur or gallop. ABDOMEN: Slightly distended. Slightly tympanitic, but less so than before. Surgical wound looks good. Lower midline wound which had opened superficially is granulating, although it tracks superiorly. Teja have been removed, leaving his lower teja above the open portion of the wound to prevent opening. Wound VAC is in place and there is no evidence of infection in his wound. Percutaneous drainage catheter placed by CT scan has drained 80 mL in the last 24 hours. NG tube drainage is 950 mL. Yesterday, he had a small bowel follow-through and showed lack of progression. NG tube was placed back to suction. He did not have any nausea or vomiting during the study. He has not had a bowel movement in the last 24 hours, but in the last 2 days, he has had more than two. The patient continues on TPN. He continues on IV antibiotics. Cultures from the percutaneous drainage of the right upper quadrant, probably hematoma collection, reveals Enterococcus and E coli. He is on IV Zosyn. ASSESSMENT AND PLAN: 1. Subhepatic intraabdominal abscess, probably colonized hematoma. Continue irrigation of the catheter and drainage. Continue to monitor output. Repeat CT scan sometime next week if he is still here. If he is an outpatient, plan followup of that drain as an outpatient in LTAC. 2. 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 The patient continues to have a bowel obstructive pattern. We would continue TPN, NG tube. We have repeatedly removed the NG tube in the past and it is uncomfortable to be replaced, thus before the NG tube is removed again, a repeat small-bowel follow-through will be necessary. Small-bowel follow-through yesterday revealed persistence of the high-grade obstructive process of high-grade ileus. He does however have contrast in his colon from a CAT scan obtained earlier in the week. He is not completely obstructed. At this point, we would not recommend surgical intervention. I have discussed this with the patient and his . We will consider sending the patient to the LTAC for reconditioning. The patient did have a stroke in 2012, but was ambulating prior to this hospitalization, 2 weeks prior to admission, however, he had progressive decline and was admitted to the stroke unit and was found to have no acute changes suggesting a recurrent stroke, but was found to have a bowel obstruction, for which the above treatment was rendered. The patient should be considered transfer to LTAC. We will continue wound VAC care to his lower abdomen. Continue irrigation of his percutaneous drainage catheter, right subhepatic collection twice a day, and follow up CT scans next week to determine adequacy of drainage and progression. Should bowel function resumes, we would repeat small-bowel follow-through to avoid premature removal of NG tube, which has been replaced on several occasions to the situation where he has bowel movements and bowel function seemed to resume and NG tube removed, but had to be replaced, placing it is very difficult for the patient. 3. Deconditioning. Continue physical therapy. In our COVID environment, his has previously been denied access to the patient, but because of the patient's prior strokes and motivation, he is less interactive with therapy without his present and I would recommend that his be allowed to visit and stay with the patient as she is able to facilitate interactions with physical therapy and rehab and help him with his depression. At this point, Dr. Malik is covering over the weekend. I will see him next week. The patient is stable to transfer to an LTAC unit at any time. We will have a PICC line placed in preparation for that. Remove his senescent central line. Job ID: [id number]
--- NOTE | 2019-10-03 14:52 | PDOC.HOSPP ---
- Subjective Encounter Date: 10/03/19 Encounter Time: 09:50 Subjective: pt is going to get PICC line. Less abdominal drain output sux note reviewed, OK for LTAC transfer, when able. - Objective Vital Signs & Weight: Vital Signs (12 hours) Temp Pulse Resp BP BP BP Pulse Ox 10/03/19 09:34 139/75 10/03/19 08:07 98.6 F 75 20 139/75 96 10/03/19 06:33 75 162/79 H 10/03/19 06:20 75 176/92 H 10/03/19 04:40 98.8 F 75 20 171/91 H 96 Weight Admit Weight 226 lb 14.4 oz Weight 228 lb 9.6 oz Most Recent Monitor Data Heart Rate from ECG 73 NIBP 111/63 NIBP BP-Mean 79 Respiration from ECG 18 SpO2 100 I&O: 10/02/19 10/03/19 10/04/19 06:59 06:59 06:59 Intake Total 1284.4 1003 Output Total 535 1030 Balance 749.4 -27 Result Diagrams: 10/02/19 06:57 10/02/19 06:57 Additional Labs: Accuchecks 10/03/19 10/02/19 00:40 16:08 POC Glucose 174 H 186 H Hospitalist ROS - Medication Medications: Active Medications Generic Name Dose Route Start Last Admin Trade Name Freq PRN Reason Stop Dose Admin Acetaminophen 1,000 mg 09/22/19 00:01 10/02/19 21:59 Tylenol PO 1,000 mg Q6H PRN Administration Headache/Fever or Pain Carvedilol 12.5 mg 09/24/19 17:00 10/03/19 09:34 Coreg PO 12.5 mg BID-WM KATHYA Administration Fluoxetine HCl 40 mg 09/18/19 09:00 10/03/19 09:34 Prozac PO 40 mg DAILY KATHYA Administration Hydralazine HCl 10 mg 09/28/19 09:45 10/03/19 06:20 Apresoline SLOW IVP 10 mg Q4H PRN Administration Blood Pressure Insulin Glargine 5 units/ 0.05 mls @ 0 mls/hr 09/04/19 09:00 10/03/19 09:33 Miscellaneous Medication SC 0.05 mls QAM KATHYA Administration Sterile Water 200 ml/ Sodium 1,770.7021 mls @ 73.779 mls/hr 09/23/19 22:00 22:36 Acetate 40 meq/ Sodium IV 1,770.7021 mls Chloride 60 meq/ Potassium 2200 KATHYA Administration Chloride 80 meq/ Potassium Phosphate 30 mmol/ Calcium Gluconate 10 meq/ Magnesium Sulfate 10 meq/ Multivitamins 10 ml/ Chromium/Copper/ Manganese/Seleni/Zn 1 ml/ Insulin Human Regular 50 units / Amino Acids/ Dextrose/Water/ Fat Emulsion Intravenous Piperacillin Sod/Tazobactam 100 mls @ 200 mls/hr 09/29/19 12:00 10/03/19 12: 23 Sod 4.5 gm/ Sodium Chloride IVPB 100 mls Q6HR KATHYA Administration Fluconazole/Sodium Chloride 200 mls @ 100 mls/hr 10/01/19 12:00 10/03/19 12: 23 400 mg/ Device IVPB 200 mls 1200 KATHYA Administration Insulin Human Lispro 0 units 08/19/19 15:39 10/02/19 18:32 Humalog SC 2 unit .MODERATE SLIDING SC PRN Administration Moderate Correctional Scale Insulin Human Lispro 0 units 08/19/19 15:39 09/30/19 06:32 Humalog SC 2 units .BEDTIME SLIDING SC PRN Administration Bedtime Correctional Scale Melatonin 3 mg 09/17/19 21:00 10/02/19 22:00 Melatonin PO 3 mg HS KATHYA Administration Nitroglycerin 1 patch 08/26/19 09:00 10/03/19 09:34 Nitro-Dur 0.4mg/Hr Patch TD 1 patch DAILY KATHYA Administration Ondansetron HCl 4 mg 08/19/19 15:39 09/27/19 06:24 Zofran IVP 4 mg Q6H PRN Administration Nausea/Vomiting Pantoprazole Sodium 40 mg 08/28/19 09:00 10/03/19 09:45 Protonix IVP 40 mg DAILY KATHYA Administration Remove Nitro Patch 0 each 09/09/19 21:00 10/02/19 22:00 TD 1 each 2100 KATHYA Administration Sodium Chloride 10 ml 08/19/19 15:39 09/26/19 20:46 Flush - Normal Saline IVF 10 ml PRN PRN Administration Saline Flush Tamsulosin HCl 0.4 mg 09/24/19 21:00 07/16/20 22:00 Flomax PO 0.4 mg HS KATHYA Administration - Exam General Appearance: ill appearing Eye: PERRL ENT: normocephalic atraumatic Neck: supple Heart: RRR Respiratory: CTAB, normal chest expansion Gastrointestinal: distended, diminished bowl sounds Psychiatric: A&O x 3 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(s): Z79.01 - RETIREMENT (CURRENT) USE OF ANTICOAGULANTS Status: Chronic (5) DM type 2 (diabetes mellitus, type 2) Status: Chronic Qualifiers: Diabetes mellitus jail insulin use: without jail use Diabetes mellitus complication status: with neurologic complications Diabetes mellitus complication detail: with polyneuropathy Qualified Code(s): E11.42 - Type 2 diabetes mellitus with diabetic polyneuropathy (6) Dyslipidemia Code(s): E78.5 - HYPERLIPIDEMIA, UNSPECIFIED Status: Chronic (7) HTN (hypertension) Code(s): I10 - ESSENTIAL (PRIMARY) HYPERTENSION Status: Chronic Qualifiers: Hypertension type: essential hypertension Qualified Code(s): I10 - Essential (primary) hypertension (8) Obesity (BMI 30.0-34.9) Code(s): E66.9 - OBESITY, UNSPECIFIED Status: Chronic (4) Hypophosphatemia Code(s): E83.39 - OTHER DISORDERS OF PHOSPHORUS METABOLISM Status: Acute (2) Hypokalemia Code(s): E87.6 - HYPOKALEMIA Status: Acute Hypokalemia -replaced Atrial fibrillation -rate controlled on oral diltiazem and Coreg. -AC - Xarelto ---------> on hold s/p cscope on s/p polpectomy and some changes in terminal ileum and caecum c/w post-op sux changes. s/p exploratory laporatomy on september 17 R.colectomya dn ileo-colon anastomoses. Continue routine post-op care Full liquids as tolerated------------------------> can advance to diabetic diet , when able. Nutritional support with TPN------->currently cont'd, will wean off when po intake improved. Serial abd exams Increase Coreg 12.5mg BID-----> BP and pulse ok. Pt's Po intake has to improve and should be weaned off TPN prior to considering rehab options would be a candidate for LTAC given the current slow progress. OOB with PT Full code. Persistent ileus - NGT has 200 ml of dark bilious fluid. abdomen distention slightly better. pt is NPO. Transaminitis, mild Cholestasis --may be wi.. ongoing TPN --appreciate gen sux input. - ntr c/s plagin Moderate mal nutrition - with above GI issues as above and less intake -pt cont'd to be NPO and receiving TPN. -getting lytes incl mag, phos levels. Slow improvement. LTAC would be an option. Persistent ileus R. abdomen abscess R. hepatic laceration Multifocal pnemonia. UTI prob.. cholelithiasis Leukocytosis -- fw on the culture -in the past, he was on merum and completed the course --abx changed from CTX to zosyn, given the above new findings in CXR and CT abdomen. sepsis 2/2 R. abdomen abscess [temp, and high wbcs but neutrophilia w.. bandemia. ] s/p drain of R. abdomen abscess - fw on the blood wanda -diflucan started, given high risk for fungemia [fever and on TPN for a while] abd drain -- not much output, NGT output also very little, wbcs trending down. Abd abscess drained -- wanda grow E Coli & Enterococcus faecalis---------->zosyn PICC line placement today to continue TPN. OK for LTAC transfer, when able.
[2019-10-03] MEDS: HumaLOG 300 UNITS/3 ML VIAL SC PRN (18:39)
[2019-10-03] MEDS: Melatonin 3 MG TAB PO SCH (21:20)
[2019-10-03] MEDS: REMOVE NITRO PATCH TD SCH (21:20)
[2019-10-03] MEDS: Tamsulosin HCl 0.4 MG CAP PO SCH (21:20)
[2019-10-03] MEDS: STERILE WATER IV SCH (22:06)
[2019-10-03] MEDS: [UNRECOGNIZED DRUG - OTHER] IV SCH (22:06)
[2019-10-03] MEDS: SODIUM ACETATE IV SCH (22:06)
[2019-10-03] MEDS: Ketorolac Tromethamine 30 MG/ML VIAL IVP PRN (22:23)
[2019-10-03] MEDS: Morphine 2 MG/ML VIAL SLOW IVP PRN (22:24)
[2019-10-04] MEDS: HumaLOG 300 UNITS/3 ML VIAL SC PRN ×2 (00:21→06:17)
--- NOTE | 2019-10-04 00:26 | EKG ---
Test Reason : Blood Pressure : / mmHG Vent. Rate : 069 BPM Atrial Rate : 069 BPM P-R Int : 232 ms QRS Dur : 088 ms QT Int : 382 ms P-R-T Axes : 093 -01 078 degrees QTc Int : 409 ms Sinus rhythm with 1st degree A-V block Otherwise normal ECG When compared with ECG of 22-AUG-2019 06:16, (Unconfirmed) Sinus rhythm has replaced Atrial fibrillation Vent. rate has decreased BY 58 BPM Nonspecific T wave abnormality no longer evident in Inferior leads T wave inversion no longer evident in Lateral leads Confirmed by Mary CRESPO ([id number]) on 10/04/2019 12:25:47 AM Referred By: PARTHA Confirmed By:Mary CRESPO
--- NOTE | 2019-10-04 02:29 | PRG ---
DATE OF SERVICE: 10/03/2019 SUBJECTIVE: The patient was seen this evening during rounds. He was lying in bed, resting comfortably with no signs of acute distress. Nursing reported no acute events. OBJECTIVE: VITAL SIGNS: Temperature 97.7, pulse 71, respirations 18, oxygen saturation 95% on room air, blood pressure 168/74. GENERAL: Well-appearing elderly male, lying in bed, asleep, with no signs of acute distress. PULMONARY: Equal chest rise and fall. No signs of acute respiratory distress. ASSESSMENT: 1. Status post right partial colectomy with subsequent subhepatic abdominal abscess. 2. Small bowel obstruction, now status post multiple operative interventions by Dr. Castellon. PLAN: Continue NG tube with tube feeds. Continue Zosyn. Continue physical and occupational therapy. He is pending placement at LTAC. Job ID: [id number]
[2019-10-04] MEDS: Piperacillin/Tazobactam 4.5 GM in Sodium Chloride 0.9% 100 ML IVPB SCH ×3 (05:16→17:54)
[2019-10-04] MEDS: FLUoxetine HCl 20 MG CAP PO SCH (08:50)
[2019-10-04] MEDS: Carvedilol 6.25 MG TAB PO SCH ×2 (08:51→16:49)
[2019-10-04] MEDS: Pantoprazole 40 MG VIAL IVP SCH (08:51)
[2019-10-04] MEDS: Insulin Glargine 5 UNITS in Pre-Filled Syringe 1 EACH SC SCH (08:52)
[2019-10-04] MEDS: Fluconazole In NaCl,Iso-Osm 400 MG in Premix Bag 1 BAG IVPB SCH (11:40)
[2019-10-04] MEDS: Nitroglycerin 0.4mg/Hour PATCH TD SCH (13:26)
--- NOTE | 2019-10-04 13:41 | PDOC.HOSPP ---
- Subjective Encounter Date: 10/04/19 Encounter Time: 11:30 Subjective: Remain the same, abd drain - serous fluid, NGT somnolent, nearby. wbcs dropped, LFTs not done today, will get one, as it was higher y'day. - Objective Vital Signs & Weight: Vital Signs (12 hours) Temp Pulse Resp BP BP Pulse Ox 10/04/19 11:12 97.9 F 64 20 175/76 H 94 L 10/04/19 07:28 97.7 F 69 20 165/77 H 98 10/04/19 03:19 97.4 F L 71 18 172/71 H 94 L Weight Admit Weight 226 lb 14.4 oz Weight 228 lb 9.6 oz Most Recent Monitor Data Heart Rate from ECG 73 NIBP 111/63 NIBP BP-Mean 79 Respiration from ECG 18 SpO2 100 I&O: 10/03/19 10/04/19 10/05/19 06:59 06:59 06:59 Intake Total 1003 Output Total 1030 215 Balance -27 -215 Result Diagrams: 10/02/19 06:57 10/02/19 06:57 Additional Labs: Accuchecks 10/04/19 10/04/19 10/03/19 11:17 05:56 23:30 POC Glucose 147 H 152 H 168 H 10/03/19 18:06 POC Glucose 189 H Hospitalist ROS - Medication Medications: Active Medications Generic Name Dose Route Start Last Admin Trade Name Freq PRN Reason Stop Dose Admin Acetaminophen 1,000 mg 09/22/19 00:01 10/02/19 21:59 Tylenol PO 1,000 mg Q6H PRN Administration Headache/Fever or Pain Carvedilol 12.5 mg 09/24/19 17:00 10/04/19 08:51 Coreg PO 12.5 mg BID-WM KATHYA Administration Fluoxetine HCl 40 mg 09/18/19 09:00 10/04/19 08:50 Prozac PO 40 mg DAILY KATHYA Administration Hydralazine HCl 10 mg 09/28/19 09:45 10/03/19 06:20 Apresoline SLOW IVP 10 mg Q4H PRN Administration Blood Pressure Insulin Glargine 5 units/ 0.05 mls @ 0 mls/hr 09/04/19 09:00 10/04/19 08:52 Miscellaneous Medication SC 0.05 mls QAM KATHYA Administration Sterile Water 200 ml/ Sodium 1,770.7021 mls @ 73.779 mls/hr 09/23/19 22:00 22:06 Acetate 40 meq/ Sodium IV 1,770.7021 mls Chloride 60 meq/ Potassium 2200 KATHYA Administration Chloride 80 meq/ Potassium Phosphate 30 mmol/ Calcium Gluconate 10 meq/ Magnesium Sulfate 10 meq/ Multivitamins 10 ml/ Chromium/Copper/ Manganese/Seleni/Zn 1 ml/ Insulin Human Regular 50 units / Amino Acids/ Dextrose/Water/ Fat Emulsion Intravenous Piperacillin Sod/Tazobactam 100 mls @ 200 mls/hr 09/29/19 12:00 10/04/19 13: 21 Sod 4.5 gm/ Sodium Chloride IVPB 100 mls Q6HR KATHYA Administration Fluconazole/Sodium Chloride 200 mls @ 100 mls/hr 10/01/19 12:00 10/04/19 11: 40 400 mg/ Device IVPB 200 mls 1200 KATHYA Administration Insulin Human Lispro 0 units 08/19/19 15:39 10/04/19 06:17 Humalog SC 2 unit .MODERATE SLIDING SC PRN Administration Moderate Correctional Scale Insulin Human Lispro 0 units 08/19/19 15:39 09/30/19 06:32 Humalog SC 2 units .BEDTIME SLIDING SC PRN Administration Bedtime Correctional Scale Ketorolac Tromethamine 15 mg 10/03/19 12:55 10/03/19 22:23 Toradol IVP 10/08/19 12:56 15 mg Q6H PRN Administration Pain Melatonin 3 mg 09/17/19 21:00 10/03/19 21:20 Melatonin PO 3 mg HS KATHYA Administration Morphine Sulfate 2 mg 10/03/19 12:55 10/03/19 22:24 Morphine SLOW IVP 2 mg Q4H PRN Administration Pain Nitroglycerin 1 patch 08/26/19 09:00 10/04/19 13:26 Nitro-Dur 0.4mg/Hr Patch TD 1 patch DAILY KATHYA Administration Ondansetron HCl 4 mg 08/19/19 15:39 09/27/19 06:24 Zofran IVP 4 mg Q6H PRN Administration Nausea/Vomiting Pantoprazole Sodium 40 mg 08/28/19 09:00 10/04/19 08:51 Protonix IVP 40 mg DAILY KATHYA Administration Remove Nitro Patch 0 each 09/09/19 21:00 10/03/19 21:20 TD Not Given 2100 KATHYA Sodium Chloride 10 ml 08/19/19 15:39 09/26/19 20:46 Flush - Normal Saline IVF 10 ml PRN PRN Administration Saline Flush Tamsulosin HCl 0.4 mg 09/24/19 21:00 10/03/19 21:20 Flomax PO 0.4 mg HS KATHYA Administration - Exam General Appearance: ill appearing Eye: PERRL ENT: normocephalic atraumatic Neck: supple Heart: RRR Respiratory: CTAB, normal chest expansion Gastrointestinal: distended, diminished bowl sounds Gastrointestinal - other findings: abd drain and NGT Neurological: no focal deficits 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(s): Z79.01 - JAIL (CURRENT) USE OF ANTICOAGULANTS Status: Chronic (5) DM type 2 (diabetes mellitus, type 2) Status: Chronic Qualifiers: Diabetes mellitus superintendent terminal insulin use: without superintendent terminal use Diabetes mellitus complication status: with neurologic complications Diabetes mellitus complication detail: with polyneuropathy Qualified Code(s): E11.42 - Type 2 diabetes mellitus with diabetic polyneuropathy (6) Dyslipidemia Code(s): E78.5 - HYPERLIPIDEMIA, UNSPECIFIED Status: Chronic (7) HTN (hypertension) Code(s): I10 - ESSENTIAL (PRIMARY) HYPERTENSION Status: Chronic Qualifiers: Hypertension type: essential hypertension Qualified Code(s): I10 - Essential (primary) hypertension (8) Obesity (BMI 30.0-34.9) Code(s): E66.9 - OBESITY, UNSPECIFIED Status: Chronic (4) Hypophosphatemia Code(s): E83.39 - OTHER DISORDERS OF PHOSPHORUS METABOLISM Status: Acute (2) Hypokalemia Code(s): E87.6 - HYPOKALEMIA Status: Acute Hypokalemia -replaced Atrial fibrillation -rate controlled on oral diltiazem and Coreg. -AC - Xarelto ---------> on hold s/p cscope on s/p polpectomy and some changes in terminal ileum and caecum c/w post-op sux changes. s/p exploratory laporatomy on september 17 R.colectomya dn ileo-colon anastomoses. Continue routine post-op care Full liquids as tolerated------------------------> can advance to diabetic diet , when able. Nutritional support with TPN------->currently cont'd, will wean off when po intake improved. Serial abd exams Increase Coreg 12.5mg BID-----> BP and pulse ok. Pt's Po intake has to improve and should be weaned off TPN prior to considering rehab options would be a candidate for LTAC given the current slow progress. OOB with PT Full code. Persistent ileus - NGT has 200 ml of dark bilious fluid. abdomen distention slightly better. pt is NPO. Transaminitis, mild Cholestasis --may be wi.. ongoing TPN --appreciate gen sux input. - ntr c/s plagin Moderate mal nutrition - with above GI issues as above and less intake -pt cont'd to be NPO and receiving TPN. -getting lytes incl mag, phos levels. Slow improvement. LTAC would be an option. Persistent ileus R. abdomen abscess R. hepatic laceration Multifocal pnemonia. UTI prob.. cholelithiasis Leukocytosis -- fw on the culture -in the past, he was on merum and completed the course --abx changed from CTX to zosyn, given the above new findings in CXR and CT abdomen. sepsis 2/2 R. abdomen abscess [temp, and high wbcs but neutrophilia w.. bandemia. ] s/p drain of R. abdomen abscess - fw on the blood wanda -diflucan started, given high risk for fungemia [fever and on TPN for a while] abd drain -- not much output, NGT output also very little, wbcs trending down. Abd abscess drained -- wanda grow E Coli & Enterococcus faecalis---------->zosyn PICC line placement today to continue TPN. Transaminitis - was high on september 17 and then trended down but then high on to 140 range and on doubled up to 230 range. - prob multifacotrial - both infection and inflammation. -checked with ID and cw both abx and antifungal -monitor for now. OK for LTAC transfer, when able. Plan for sunday
--- NOTE | 2019-10-04 14:06 | PRG ---
DATE OF SERVICE: 10/04/2019 SUBJECTIVE: The patient did not have any pain and slept well overnight. No dyspnea. OBJECTIVE: VITAL SIGNS: He remains afebrile and pulse 64, O2 sats 94 to 98 on room air, BP 170/76. GENERAL: No distress. LUNGS: Clear to auscultation and percussion. HEART: S1 and S2, regular rate. ABDOMEN: The patient has a percutaneous drainage catheter. The output was 135 mL on the and 80 mL on the and thus far 45 mL today. LABORATORY DATA: White cell count was 17,000, down to 12 on the , has not been repeated since. Hemoglobin stable at 7.5 two days ago and creatinine is 0.69 two days ago and the AST is up to 159, ALT is up to 239 and alkaline phosphatase is up to 233 on the . Microbiology with E coli and presumptive enterococcus. Repeat blood cultures at 48 hours, no growth. ASSESSMENT AND DISCUSSION: Peripheral vascular disease, coronary artery disease, strictures with bowel obstruction requiring two interventions, the second one was open laparotomy with right colon hemicolectomy and small area of leakage with two inflammatory collections, one of them has been drained, the noted organisms above, low-grade temperature elevation, TPN. The patient is currently receiving broad-spectrum coverage with fluconazole and Zosyn to be continued. He has persistent obstructive versus ileus process and this has been demonstrated in the small bowel x-ray from the , repeat one done for follow-through on the still demonstrated continued obstruction. So, Dr. Castellon has commented on this finding and his intention is to continue observing this since there is some passage of contrast and hope that this process will resolve without further surgical interventions. He will need continuation of antimicrobial therapy for protracted period of time. Job ID: [id number]
--- NOTE | 2019-10-04 14:09 | PRG ---
DATE OF SERVICE: 10/04/2019 SUBJECTIVE: The patient was seen during morning rounds by Dr. Malik. The patient was lying in bed comfortably, in no acute distress. There were no overnight events. The patient continues to have an NG tube in place. OBJECTIVE: VITAL SIGNS: Temperature 97.7, pulse 69, respirations 20, SpO2 of 98% on room air, blood pressure 165/77. GENERAL: Ill-appearing elderly male, lying in bed, in no acute distress. PULMONARY: Equal chest rise and fall. No respiratory distress. ABDOMEN: Soft, mildly distended. No peritoneal signs. ASSESSMENT: 1. Status post right partial colectomy with subsequent subhepatic abdominal abscesses. 2. Small-bowel obstruction, now status post multiple operative interventions by Dr. Castellon. PLAN: Continue supportive care and NG tube. Continue antibiotics. Continue physical and occupational therapy. The patient is pending placement to LTAC. The patient was examined by Dr. Malik during morning rounds. Job ID: [id number]
[2019-10-04 16:57] LABS: INR-International Normal Ratio 1.4; Prothrombin Time 17.1 sec (12.0-14.7)
[2019-10-04 17:15] LABS: ALT (SGPT) 105 U/L (8-55); AST (SGOT) 41 U/L (5-34); Albumin 1.9 g/dL (3.4-4.8); Alkaline Phosphatase 163 U/L (40-110); Bilirubin, Direct Less than 0.1 mg/dL (0.1-0.3); Bilirubin, Total 0.4 mg/dL (0.2-1.2); Protein, Total 7.2 g/dL (5.8-8.1)
[2019-10-04] MEDS: REMOVE NITRO PATCH TD SCH (22:00)
[2019-10-04] MEDS: Tamsulosin HCl 0.4 MG CAP PO SCH (22:10)
[2019-10-04] MEDS: STERILE WATER IV SCH (22:11)
[2019-10-04] MEDS: Melatonin 3 MG TAB PO SCH (22:11)
[2019-10-04] MEDS: [UNRECOGNIZED DRUG - OTHER] IV SCH (22:11)
[2019-10-04] MEDS: SODIUM ACETATE IV SCH (22:11)
[2019-10-05] MEDS: Piperacillin/Tazobactam 4.5 GM in Sodium Chloride 0.9% 100 ML IVPB SCH ×3 (01:03→15:31)
--- NOTE | 2019-10-05 03:54 | PRG ---
DATE OF SERVICE: 10/04/2019 SUBJECTIVE: The patient was seen this evening during rounds. He was lying in bed, resting comfortably with no signs of acute distress. Nursing reported no acute events. OBJECTIVE: VITAL SIGNS: Temperature 98.8, pulse 66, respirations 20, oxygen saturation 97% on room air, blood pressure 117/84. GENERAL: Elderly male, lying in bed, asleep with no signs of acute distress. PULMONARY: Equal chest rise and fall. No signs of acute respiratory distress. ASSESSMENT: 1. Status post right colectomy due to small bowel obstruction, now several weeks postop. 2. New subhepatic abdominal wall abscess, status post drain. PLAN: Continue current nutrition. Continue physical and occupational therapy. Continue antibiotics. Dr. Castellon to re-evaluate on Sunday. Job ID: [id number]
[2019-10-05] MEDS: HumaLOG 300 UNITS/3 ML VIAL SC PRN ×2 (06:22→12:39)
[2019-10-05 07:22] LABS: ALT (SGPT) 101 U/L (8-55); AST (SGOT) 41 U/L (5-34); Albumin 2.1 g/dL (3.4-4.8); Alkaline Phosphatase 190 U/L (40-110); Bilirubin, Direct 0.3 mg/dL (0.1-0.3); Bilirubin, Total 0.4 mg/dL (0.2-1.2); Protein, Total 6.5 g/dL (5.8-8.1)
[2019-10-05] MEDS: FLUoxetine HCl 20 MG CAP PO SCH (09:10)
[2019-10-05] MEDS: Carvedilol 6.25 MG TAB PO SCH ×2 (09:10→17:28)
[2019-10-05] MEDS: Insulin Glargine 5 UNITS in Pre-Filled Syringe 1 EACH SC SCH (09:11)
[2019-10-05] MEDS: Nitroglycerin 0.4mg/Hour PATCH TD SCH (09:12)
[2019-10-05] MEDS: Pantoprazole 40 MG VIAL IVP SCH (09:13)
[2019-10-05 09:51] LABS: #Eosinphils 0.4 thou/uL (0.0-0.7); #Lymphocytes 1.6 thou/uL (1.20-3.40); #Monocytes 0.8 thou/uL (0.11-0.59); #Neutrophils 7.8 thou/uL (1.40-6.50); %Basophils 0.5 % (0.0-1.0); %Eosinophils 4.2 % (0.0-10.0); %Lymphocytes 15.1 % (21.0-51.0); %Monocytes 7.1 % (0.0-10.0); %Neutrophils 73.2 % (42.0-75.0); Hemoglobin 7.4 g/dL (14.0-18.0); Mean Corpuscular HGB CONC 31.3 g/dL (32.0-36.0); Mean Corpuscular Hemoglobin 29.1 pg (27.0-31.0); Mean Corpuscular Volume 92.9 fL (78.0-98.0); Mean Platelet Volume 9.4 fL (7.4-10.4); Platelet Count 344 thou/uL (130-400); RBC Distribution Width 13.4 % (11.5-14.5); Red Blood Cell (RBC) Count 2.54 mill/uL (4.70-6.10); White Blood Cell (WBC) Count 10.6 thou/uL (4.8-10.8)
[2019-10-05 12:23] LABS: SARS-CoV-2 MS2 Positive; SARS-CoV-2 N Gene Negative; SARS-CoV-2 S Gene Negative; SARS-CoV-2 orf1ab Negative
[2019-10-05] MEDS: hydrALAZINE 20 MG/ML VIAL SLOW IVP PRN ×2 (12:41→22:10)
--- NOTE | 2019-10-05 13:15 | PDOC.HOSPP ---
- Subjective Encounter Date: 10/05/19 Encounter Time: 11:50 Subjective: pt has rash in his upper extremities, more prominent on the left > R. arm, PICC placed on the left arm 2 days prior, no rash noticed y'day but today - more of petechial rash and plts of 344K. - Objective Vital Signs & Weight: Vital Signs (12 hours) Temp Pulse Resp BP BP BP Pulse Ox 10/05/19 12:41 65 166/81 H 10/05/19 11:06 97.5 F L 65 18 172/79 H 94 L 10/05/19 09:10 162/76 H 10/05/19 07:26 98.7 F 67 18 162/76 H 96 10/05/19 05:37 97.2 F L 69 22 H 174/89 H 97 Weight Admit Weight 226 lb 14.4 oz Weight 228 lb 9.6 oz Most Recent Monitor Data Heart Rate from ECG 73 NIBP 111/63 NIBP BP-Mean 79 Respiration from ECG 18 SpO2 100 I&O: 10/04/19 10/05/19 10/06/19 06:59 06:59 06:59 Intake Total 1084.4 Output Total 215 595 Balance -215 -595 1084.4 Result Diagrams: 10/05/19 09:40 10/02/19 06:57 Additional Labs: Accuchecks 10/05/19 10/05/19 10/05/19 11:10 05:43 00:45 POC Glucose 170 H 159 H 168 H 10/04/19 18:36 POC Glucose 176 H Hospitalist ROS - Medication Medications: Active Medications Generic Name Dose Route Start Last Admin Trade Name Lobo PRN Reason Stop Dose Admin Acetaminophen 1,000 mg 09/22/19 00:01 10/02/19 21:59 Tylenol PO 1,000 mg Q6H PRN Administration Headache/Fever or Pain Carvedilol 12.5 mg 09/24/19 17:00 10/05/19 09:10 Coreg PO 12.5 mg BID-WM KATHYA Administration Fluoxetine HCl 40 mg 09/18/19 09:00 10/05/19 09:10 Prozac PO 40 mg DAILY KATHYA Administration Hydralazine HCl 10 mg 09/28/19 09:45 10/05/19 12:41 Apresoline SLOW IVP 10 mg Q4H PRN Administration Blood Pressure Insulin Glargine 5 units/ 0.05 mls @ 0 mls/hr 09/04/19 09:00 10/05/19 09:11 Miscellaneous Medication SC 0.05 mls QAM KATHYA Administration Sterile Water 200 ml/ Sodium 1,770.7021 mls @ 73.779 mls/hr 09/23/19 22:00 22:11 Acetate 40 meq/ Sodium IV 1,770.7021 mls Chloride 60 meq/ Potassium 2200 KATHYA Administration Chloride 80 meq/ Potassium Phosphate 30 mmol/ Calcium Gluconate 10 meq/ Magnesium Sulfate 10 meq/ Multivitamins 10 ml/ Chromium/Copper/ Manganese/Seleni/Zn 1 ml/ Insulin Human Regular 50 units / Amino Acids/ Dextrose/Water/ Fat Emulsion Intravenous Piperacillin Sod/Tazobactam 100 mls @ 200 mls/hr 09/29/19 12:00 10/05/19 06: 21 Sod 4.5 gm/ Sodium Chloride IVPB 100 mls Q6HR KATHYA Administration Insulin Human Lispro 0 units 08/19/19 15:39 10/05/19 12:39 Humalog SC 2 unit .MODERATE SLIDING SC PRN Administration Moderate Correctional Scale Insulin Human Lispro 0 units 08/19/19 15:39 09/30/19 06:32 Humalog SC 2 units .BEDTIME SLIDING SC PRN Administration Bedtime Correctional Scale Ketorolac Tromethamine 15 mg 10/03/19 12:55 10/03/19 22:23 Toradol IVP 10/08/19 12:56 15 mg Q6H PRN Administration Pain Melatonin 3 mg 09/17/19 21:00 10/04/19 22:11 Melatonin PO 3 mg HS KATHYA Administration Morphine Sulfate 2 mg 10/03/19 12:55 10/03/19 22:24 Morphine SLOW IVP 2 mg Q4H PRN Administration Pain Nitroglycerin 1 patch 08/26/19 09:00 10/05/19 09:12 Nitro-Dur 0.4mg/Hr Patch TD 1 patch DAILY KATHYA Administration Ondansetron HCl 4 mg 08/19/19 15:39 09/27/19 06:24 Zofran IVP 4 mg Q6H PRN Administration Nausea/Vomiting Pantoprazole Sodium 40 mg 08/28/19 09:00 10/05/19 09:13 Protonix IVP 40 mg DAILY KATHYA Administration Remove Nitro Patch 0 each 09/09/19 21:00 10/04/19 22:00 TD Not Given 2100 KATHYA Sodium Chloride 10 ml 08/19/19 15:39 09/26/19 20:46 Flush - Normal Saline IVF 10 ml PRN PRN Administration Saline Flush Tamsulosin HCl 0.4 mg 09/24/19 21:00 10/04/19 22:10 Flomax PO 0.4 mg HS KATHYA Administration - Exam General Appearance: NAD, awake alert, ill appearing Eye: PERRL ENT: normocephalic atraumatic Neck: supple Heart: RRR Respiratory: CTAB, normal chest expansion Gastrointestinal: soft, normal bowel sounds Gastrointestinal - other findings: dressing in the mid-abdomen. Extremities - other findings: pt has rash in his upper extremities, more prominent on the left > R. 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 OF ANTICOAGULANTS Status: Chronic (5) DM type 2 (diabetes mellitus, type 2) Status: Chronic Qualifiers: Diabetes mellitus alf insulin use: 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 Diabetes mellitus complication status: with neurologic complications Diabetes mellitus complication detail: with polyneuropathy Qualified Code(s): E11.42 - Type 2 diabetes mellitus with diabetic polyneuropathy (6) Dyslipidemia Code(s): E78.5 - HYPERLIPIDEMIA, UNSPECIFIED Status: Chronic (7) HTN (hypertension) Code(s): I10 - ESSENTIAL (PRIMARY) HYPERTENSION Status: Chronic Qualifiers: Hypertension type: essential hypertension Qualified Code(s): I10 - Essential (primary) hypertension (8) Obesity (BMI 30.0-34.9) Code(s): E66.9 - OBESITY, UNSPECIFIED Status: Chronic (4) Hypophosphatemia Code(s): E83.39 - OTHER DISORDERS OF PHOSPHORUS METABOLISM Status: Acute (2) Hypokalemia Code(s): E87.6 - HYPOKALEMIA Status: Acute Hypokalemia -replaced Atrial fibrillation -rate controlled on oral diltiazem and Coreg. -AC - Xarelto ---------> on hold s/p cscope on s/p polpectomy and some changes in terminal ileum and caecum c/w post-op sux changes. s/p exploratory laporatomy on september 17 R.colectomya dn ileo-colon anastomoses. Continue routine post-op care Full liquids as tolerated------------------------> can advance to diabetic diet , when able. Nutritional support with TPN------->currently cont'd, will wean off when po intake improved. Serial abd exams Increase Coreg 12.5mg BID-----> BP and pulse ok. Pt's Po intake has to improve and should be weaned off TPN prior to considering rehab options would be a candidate for LTAC given the current slow progress. OOB with PT Full code. Persistent ileus - NGT has 200 ml of dark bilious fluid. abdomen distention slightly better. pt is NPO. Transaminitis, mild Cholestasis --may be wi.. ongoing TPN --appreciate gen sux input. - ntr c/s plagin Moderate mal nutrition - with above GI issues as above and less intake -pt cont'd to be NPO and receiving TPN. -getting lytes incl mag, phos levels. Slow improvement. LTAC would be an option. Persistent ileus R. abdomen abscess R. hepatic laceration Multifocal pnemonia. UTI prob.. cholelithiasis Leukocytosis -- fw on the culture -in the past, he was on merum and completed the course --abx changed from CTX to zosyn, given the above new findings in CXR and CT abdomen. sepsis 2/2 R. abdomen abscess [temp, and high wbcs but neutrophilia w.. bandemia. ] s/p drain of R. abdomen abscess - fw on the blood wanda -diflucan started, given high risk for fungemia [fever and on TPN for a while] abd drain -- not much output, NGT output also very little, wbcs trending down. Abd abscess drained -- wanda grow E Coli & Enterococcus faecalis---------->zosyn PICC line placement today to continue TPN. Transaminitis--------------->trending down - was high on september 17 and then trended down but then high on to 140 range and on doubled up to 230 range. - prob multifacotrial - both infection and inflammation. -checked with ID and cw both abx and antifungal -monitor for now. Petechial rash on forearms without itching -if drug induced, would be seen in torso as well vs...??? contact allergy --PICC placed 2 days prior, and no immediate skin changes noted. -plts at 344 K -monitor, may need a dose of steroid - but will wait until seen by ID. OK for LTAC transfer, when able. plan for sunday
--- NOTE | 2019-10-05 14:09 | PDOC.GSPN ---
Surgery Progress Note: Subj - Subjective Patient reports: had a bowel movement (X1 yesterday), still having pain Narrative: Denied any nausea. Passing gas. Remains NPO and getting TPN. 350ml out of NGT , light green drainage in the last 24 hours. Percutaneous abdominal drain output 40ml in the last 24 hours. Reports rash to both arms left > than right, onset today. Likely a drug rash. Dr. Caceres is already on the case. Surgery Progress Note: Obj - Vital signs Vital signs: Vital Signs - Most Recent Temp Pulse Resp BP Pulse Ox 97.5 F L 65 18 166/81 H 94 L 10/05/19 11:06 10/05/19 12:41 10/05/19 11:06 10/05/19 12:41 10/05/19 11:06 - Physical Exam General: no distress, chronically ill Respiratory: normal expansion, normal respiratory effort Abdomen: soft, non tender, appropriately tender (incision site) Surgery Progress Note: Results - Labs Result Diagrams: 10/05/19 09:40 10/02/19 06:57 Lab results: Laboratory Results - last 24 hr 10/04/19 10/05/19 10/05/19 12:00 05:43 06:30 WBC RBC Hgb Hct MCV MCH MCHC RDW Plt Count MPV Neutrophils % Lymphocytes % Monocytes % Eosinophils % Basophils % Neutrophils # Lymphocytes # Monocytes # Eosinophils # Basophils # POC Glucose 159 H Total Bilirubin 0.4 Direct Bilirubin 0.3 AST 41 H ALT 101 H Alkaline Phosphatase 190 H Serum Total Protein 6.5 Albumin 2.1 L COVID-19 PCR Not Detected 10/05/19 10/05/19 09:40 11:10 WBC 10.6 RBC 2.54 L Hgb 7.4 L Hct 23.6 L MCV 92.9 MCH 29.1 MCHC 31.3 L RDW 13.4 Plt Count 344 MPV 9.4 Neutrophils % 73.2 Lymphocytes % 15.1 L Monocytes % 7.1 Eosinophils % 4.2 Basophils % 0.5 Neutrophils # 7.8 H Lymphocytes # 1.6 Monocytes # 0.8 H Eosinophils # 0.4 Basophils # 0.0 POC Glucose 170 H Total Bilirubin Direct Bilirubin AST ALT Alkaline Phosphatase Serum Total Protein Albumin COVID-19 PCR Surgery Progress Note: A/P - Problem (1) Status post extensive lysis of adhesions Current Visit: Yes Status: Acute - Plan Plan: Continue supportive care. Continue TPN and bowel rest. Will clamp NGT and check residuals. IF less than 200ml will keep clamped. Morris to evaluate possible drug rash. The patient was seen by Dr. Malik.
--- NOTE | 2019-10-05 14:27 | PRG ---
DATE OF SERVICE: 10/05/2019 SUBJECTIVE: Mr. Werner developed lesions in his skin of the upper extremities and I was asked to evaluate. OBJECTIVE: GENERAL: He is not feeling too well, but he is not in distress. He has been afebrile. NG tube in place. Midline negative pressure dressing. The central line has been removed. He has a PICC line in left upper extremity. VITAL SIGNS: BP 160/81, pulse 65, and O2 saturation 94 to 96 room air. LUNGS: With symmetric clear breath sounds. HEART: S1 and S2, regular rate. ABDOMEN: Slightly distended, but not tender, is voiding in the diaper. EXTREMITIES: He is able to move extremities, but he is diffusely weak. NEUROLOGIC: He is able to speak and understand questions. LABORATORY DATA: White cell count down to 10.6, hemoglobin 7.4, platelets 344, 73% neutrophils, and creatinine 0.69 three days ago. The transaminases stable at 41 and 101 respectively. Alkaline phosphatase is a little higher at 190. Microbiology with negative venous samples for cultures at 48 hours. Abdomen x- ray on October 02 with continued small bowel obstruction. ASSESSMENT AND DISCUSSION: Peripheral vascular disease; coronary artery disease ; strictures with bowel obstruction, requiring 2 interventions, the second one was open laparotomy with right colon hemicolectomy; small area of leakage with 2 inflammatory collections, one of them has been drained with noted organisms including E coli and enterococcus; TPN; low-grade temp elevation. Diflucan has been added. He is currently on Zosyn and fluconazole. Has developed a skin rash. The rash is petechial and distributed in the upper extremities. This could be either consistent with leukocytoclastic vasculitis or the effects of Zosyn, so go ahead and switch him to meropenem from Zosyn. Since meropenem does not have the same activity against the enterococcus avium as Zosyn, we will add vancomycin to the regimen, so it is going to be meropenem and vancomycin and continue Diflucan. Discontinue Zosyn. Job ID: [id number] [facility]
[2019-10-05 14:59] LABS: Anion Gap 10 mmol/L (10-20); BUN (Urea Nitrogen) 16 mg/dL (8.4-25.7); Calc. Creatinine Clearance 134 mL/min (70-130); Calcium 7.7 mg/dL (7.8-10.44); Carbon Dioxide 23 mmol/L (23-31); Chloride 108 mmol/L (98-107); Estimated GFR-MDRD Greater than 90; Glucose 143 mg/dL (83-110); Potassium 4.1 mmol/L (3.5-5.1); Sodium 137 mmol/L (136-145)
[2019-10-05] MEDS: Fluconazole In NaCl,Iso-Osm 400 MG in Premix Bag 1 BAG IVPB SCH (15:30)
[2019-10-05] MEDS ORDERED: MEROPENEM 1 GM/50 ML 1 GM in Premix Bag 1 BAG IVPB SCH (16:00)
[2019-10-05] MEDS: MEROPENEM 1 GM/50 ML 1 GM in Premix Bag 1 BAG IVPB SCH (17:27)
[2019-10-05] MEDS: Vancomycin HCl 1.25 GM in Sodium Chloride 0.9% 250 ML 250 ML IVPB SCH (17:28)
[2019-10-05] MEDS: Tamsulosin HCl 0.4 MG CAP PO SCH (21:47)
[2019-10-05] MEDS: Melatonin 3 MG TAB PO SCH (21:47)
[2019-10-05] MEDS: REMOVE NITRO PATCH TD SCH (21:47)
[2019-10-05] MEDS: Ketorolac Tromethamine 30 MG/ML VIAL IVP PRN (22:10)
[2019-10-05] MEDS: SODIUM ACETATE IV SCH (22:12)
[2019-10-05] MEDS: STERILE WATER IV SCH (22:12)
[2019-10-05] MEDS: [UNRECOGNIZED DRUG - OTHER] IV SCH (22:12)
[2019-10-06] MEDS: MEROPENEM 1 GM/50 ML 1 GM in Premix Bag 1 BAG IVPB SCH ×3 (00:16→18:48)
[2019-10-06] MEDS: Vancomycin HCl 1.25 GM in Sodium Chloride 0.9% 250 ML 250 ML IVPB SCH ×2 (03:47→17:28)
[2019-10-06 04:19] LABS: #Eosinphils 0.4 thou/uL (0.0-0.7); #Lymphocytes 2.3 thou/uL (1.20-3.40); #Monocytes 0.9 thou/uL (0.11-0.59); #Neutrophils 8.2 thou/uL (1.40-6.50); %Basophils 0.1 % (0.0-1.0); %Eosinophils 3.6 % (0.0-10.0); %Lymphocytes 19.1 % (21.0-51.0); %Monocytes 7.7 % (0.0-10.0); %Neutrophils 69.5 % (42.0-75.0); Hemoglobin 7.5 g/dL (14.0-18.0); Mean Corpuscular HGB CONC 31.5 g/dL (32.0-36.0); Mean Corpuscular Hemoglobin 29.1 pg (27.0-31.0); Mean Corpuscular Volume 92.4 fL (78.0-98.0); Mean Platelet Volume 9.3 fL (7.4-10.4); Platelet Count 373 thou/uL (130-400); RBC Distribution Width 13.9 % (11.5-14.5); Red Blood Cell (RBC) Count 2.57 mill/uL (4.70-6.10); White Blood Cell (WBC) Count 11.8 thou/uL (4.8-10.8)
[2019-10-06 05:36] LABS: ALT (SGPT) 82 U/L (8-55); AST (SGOT) 38 U/L (5-34); Albumin 2.1 g/dL (3.4-4.8); Alkaline Phosphatase 183 U/L (40-110); Anion Gap 9 mmol/L (10-20); BUN (Urea Nitrogen) 16 mg/dL (8.4-25.7); Bilirubin, Total 0.3 mg/dL (0.2-1.2); CRP (Inflammatory) 4.48 mg/dL (= or < 0.5); Calc. Creatinine Clearance 140 mL/min (70-130); Calcium 7.7 mg/dL (7.8-10.44); Carbon Dioxide 23 mmol/L (23-31); Chloride 107 mmol/L (98-107); Estimated GFR-MDRD Greater than 90; Globulin 4.5 g/dL (2.4-3.5); Glucose 126 mg/dL (83-110); Magnesium 1.8 mg/dL (1.6-2.6); Phosphorus 3.2 mg/dL (2.3-4.7); Protein, Total 6.6 g/dL (5.8-8.1); Sodium 135 mmol/L (136-145)
[2019-10-06] MEDS ORDERED: Enoxaparin Sodium 40 MG/0.4 ML SYRINGE SC SCH (09:00)
[2019-10-06] MEDS: Morphine 2 MG/ML VIAL SLOW IVP PRN (09:50)
[2019-10-06] MEDS: FLUoxetine HCl 20 MG CAP PO SCH (09:54)
[2019-10-06] MEDS: Pantoprazole 40 MG VIAL IVP SCH (09:55)
[2019-10-06] MEDS: Carvedilol 6.25 MG TAB PO SCH ×2 (09:55→17:40)
[2019-10-06] MEDS: Insulin Glargine 5 UNITS in Pre-Filled Syringe 1 EACH SC SCH (09:56)
[2019-10-06] MEDS: Nitroglycerin 0.4mg/Hour PATCH TD SCH (09:56)
[2019-10-06] MEDS: hydrALAZINE 20 MG/ML VIAL SLOW IVP PRN (10:50)
[2019-10-06] MEDS: HumaLOG 300 UNITS/3 ML VIAL SC PRN (11:50)
--- NOTE | 2019-10-06 11:52 | PDOC.HOSPP ---
- Subjective Encounter Date: 10/06/19 Encounter Time: 09:15 Subjective: Patient seen and examined bedside today, - Objective Vital Signs & Weight: Vital Signs (12 hours) Temp Pulse Resp BP BP BP Pulse Ox 10/06/19 11:26 98.5 F 73 20 136/71 95 10/06/19 10:50 174/84 H 10/06/19 09:55 166/80 H 10/06/19 07:38 98.0 F 74 20 166/80 H 96 10/06/19 03:12 98.7 F 78 18 157/82 H 95 Weight Admit Weight 226 lb 14.4 oz Weight 228 lb 9.6 oz Most Recent Monitor Data Heart Rate from ECG 73 NIBP 111/63 NIBP BP-Mean 79 Respiration from ECG 18 SpO2 100 I&O: 10/05/19 10/06/19 10/07/19 06:59 06:59 06:59 Intake Total 1084.4 Output Total 595 10 Balance -595 1074.4 Result Diagrams: 10/06/19 03:53 10/06/19 03:53 Additional Labs: Accuchecks 10/06/19 10/05/19 10/05/19 05:07 23:38 18:17 POC Glucose 160 H 167 H 159 H 10/05/19 11:10 POC Glucose 170 H Radiology Reviewed by me: Yes (Hospital chart reviewed) Hospitalist ROS - Review of Systems ENT: denies: ear pain, ear discharge, nose pain, nose discharge, nose congestion , mouth pain, mouth swelling, throat pain, throat swelling, other Respiratory: denies: cough, dry, shortness of breath, hemoptysis, SOB with excertion, pleuritic pain, sputum, wheezing, other Cardiovascular: denies: chest pain, palpitations, orthopnea, paroxysmal noc. dyspnea, edema, light headedness, other Gastrointestinal: denies: nausea, vomiting, abdominal pain, diarrhea, constipation, melena, hematochezia, other Genitourinary: denies: dysuria, frequency, incontinence, hematuria, retention, other - Medication Medications: Active Medications Generic Name Dose Route Start Last Admin Trade Name Freq PRN Reason Stop Dose Admin Acetaminophen 1,000 mg 09/22/19 00:01 10/02/19 21:59 Tylenol PO 1,000 mg Q6H PRN Administration Headache/Fever or Pain Carvedilol 12.5 mg 09/24/19 17:00 10/06/19 09:55 Coreg PO 12.5 mg BID-WM KATHYA Administration Enoxaparin Sodium 40 mg 10/06/19 09:00 10/06/19 10:51 Lovenox SC 40 mg 0900 KATHYA Administration Fluoxetine HCl 40 mg 09/18/19 09:00 10/06/19 09:54 Prozac PO 40 mg DAILY KATHYA Administration Hydralazine HCl 10 mg 09/28/19 09:45 10/06/19 10:50 Apresoline SLOW IVP 10 mg Q4H PRN Administration Blood Pressure Insulin Glargine 5 units/ 0.05 mls @ 0 mls/hr 09/04/19 09:00 10/06/19 09:56 Miscellaneous Medication SC 0.05 mls QAM KATHYA Administration Sterile Water 200 ml/ Sodium 1,770.7021 mls @ 73.779 mls/hr 09/23/19 22:00 22:12 Acetate 40 meq/ Sodium IV 1,770.7021 mls Chloride 60 meq/ Potassium 2200 KATHYA Administration Chloride 80 meq/ Potassium Phosphate 30 mmol/ Calcium Gluconate 10 meq/ Magnesium Sulfate 10 meq/ Multivitamins 10 ml/ Chromium/Copper/ Manganese/Seleni/Zn 1 ml/ Insulin Human Regular 50 units / Amino Acids/ Dextrose/Water/ Fat Emulsion Intravenous Fluconazole/Sodium Chloride 200 mls @ 100 mls/hr 10/05/19 13:00 10/05/19 15: 30 400 mg/ Device IVPB Not Given 1300 KATHYA Vancomycin HCl 1.25 gm/ Sodium 250 mls @ 166.67 mls/hr 10/05/19 16:00 03:47 Chloride IVPB 250 mls 0400,1600 KATHYA Administration Meropenem 1 gm/ Device 50 mls @ 100 mls/hr 10/05/19 17:00 10/06/19 09:56 IVPB 50 mls 0100,0900,1700 KATHYA Administration Insulin Human Lispro 0 units 08/19/19 15:39 10/05/19 12:39 Humalog SC 2 unit .MODERATE SLIDING SC PRN Administration Moderate Correctional Scale Insulin Human Lispro 0 units 08/19/19 15:39 09/30/19 06:32 Humalog SC 2 units .BEDTIME SLIDING SC PRN Administration Bedtime Correctional Scale Ketorolac Tromethamine 15 mg 10/03/19 12:55 10/05/19 22:10 Toradol IVP 10/08/19 12:56 15 mg Q6H PRN Administration Pain Melatonin 3 mg 09/17/19 21:00 10/05/19 21:47 Melatonin PO 3 mg HS KATHYA Administration Morphine Sulfate 2 mg 10/03/19 12:55 10/06/19 09:50 Morphine SLOW IVP 2 mg Q4H PRN Administration Pain Nitroglycerin 1 patch 08/26/19 09:00 10/06/19 09:56 Nitro-Dur 0.4mg/Hr Patch TD 1 patch DAILY KATHYA Administration Ondansetron HCl 4 mg 08/19/19 15:39 09/27/19 06:24 Zofran IVP 4 mg Q6H PRN Administration Nausea/Vomiting Pantoprazole Sodium 40 mg 08/28/19 09:00 10/06/19 09:55 Protonix IVP 40 mg DAILY KATHYA Administration Remove Nitro Patch 0 each 09/09/19 21:00 10/05/19 21:47 TD Not Given 2100 KATHYA Sodium Chloride 10 ml 08/19/19 15:39 09/26/19 20:46 Flush - Normal Saline IVF 10 ml PRN PRN Administration Saline Flush Tamsulosin HCl 0.4 mg 09/24/19 21:00 10/05/19 21:47 Flomax PO 0.4 mg HS KATHYA Administration - Exam General Appearance: NAD, awake alert Eye: PERRL, anicteric sclera Eye - other findings: NG tube in place ENT: normocephalic atraumatic, no oropharyngeal lesions Neck: supple, symmetric, no JVD Heart: RRR, no murmur, no gallops, no rubs Respiratory: CTAB, no wheezes, no rales Respiratory - other findings: Gastrointestinal: soft, non-tender, non-distended Gastrointestinal - other findings: Wound covered with a dressing Extremities: no cyanosis, no clubbing Skin: normal turgor Neurological: no new deficit Musculoskeletal: normal tone Psychiatric: normal affect Hosp A/P - Plan old records reviewed/req, plan discussed w/ family, continue antibiotics, [employer] Assessment Small bowel obstruction status post laparoscopic adhesio lysis and mini laparotomy, status post exploratory laparotomy and repeat adhesio lysis and right colectomy with ileocolonic anastomosis Postoperative wound dehiscence Postoperative prolonged ileus Abnormal electrolytes Anemia of chronic disease Abnormal LFT Cholelithiasis Benign enlargement of prostate History of CVA Chronic systolic heart failure with EF 40 to 45% Vascular dementia Obstructive sleep apnea Morbid obesity Plan I have reviewed entire hospital course, patient's present bedside today and I spoke with her, discussed with the wound care team, wound care team did wound dressing today, medications reviewed and continue provide symptomatic care , it is possible that this patient may go to long-term acute care patient seen and examined bedside today
[2019-10-06] MEDS ORDERED: Sodium Bicarbonate 2.5 MEQ/5 ML VIAL ONE (12:19)
--- NOTE | 2019-10-06 12:31 | PRG ---
DATE OF SERVICE: 10/06/2019 SUBJECTIVE: Over the weekend, NG tube has been clamped intermittently, and residuals have been 50 to 70 mL. I have asked the nurse to put it back to continuous suction. OBJECTIVE: VITAL SIGNS: Temperature 98 degrees, pulse 73, respirations 20, and blood pressure 136/71. NG tube output for the last 24 hours is unrecorded. Drain output is 10 mL. NG tube output seems to be clear. LUNGS: Clear to auscultation. CARDIAC: Regular rate and rhythm. No murmur or gallop. ABDOMEN: Soft, mildly distended, mildly tympanitic. LABORATORY DATA: White count 11.8 this morning and hemoglobin 7.5. Basic metabolic profile is normal. Bilirubin and magnesium are normal. DIAGNOSTIC DATA: Repeat CAT scan has been ordered for the day, and results are pending. ASSESSMENT AND PLAN: Prolonged ileus, intraabdominal abscess. Percutaneous drain in place. Continue TPN. NG tube. Await CAT scan results today. Check status of drainage tube. LTAC arrangements are underway. Before NG tube is removed, again I would do another small-bowel follow-through as he often has bowel movements, but has poor GI tolerance leading to repeat placement of NG tube which he is growing tired of. Job ID: [id number]
[2019-10-06] MEDS ORDERED: Iopamidol 370 76% 100 ML VIAL ONE (13:35)
--- NOTE | 2019-10-06 13:50 | CT ---
CT abdomen and pelvis with IV contrast HISTORY: Abdominal abscess. Follow-up. COMPARISON: 09/29/2019. FINDINGS: Mild atelectasis is apparent at the lung bases. Dystrophic calcification within the upper s pleen is stable. Area of concern for laceration at the inferior liver is no longer visible. Hyperdense stones are again demonstrated within the gallbladder lumen. Calcification within the arterial structures. Benign-appearing bone islands at the right iliac body a nd the left side of the sacrum are stable. Percutaneous drainage catheter remains in the decompressed abscess cavity along the right lateral abd ominal wall. Minimal remaining fluid and gas. A thin sheet of fluid running obliquely within the posterior lower abdomen is smaller than on the previous exam. There is a subtle enhancing rim but no internal gas. Postoperative changes of the right abdomen consistent with right hemicolectomy again demonstrated wit h tiny pockets of gas immediately adjacent to the surgical anastomosis unchanged in appearance. No adjacent fluid or connection to the abscess. Contrast material is present throughout the remaining colon. Small bowel is decompressed. Degenerative changes throughout the lumbar spine. IMPRESSION : Abscess cavity along the right inner abdominal wall remains decompressed with drain in good position. Thin sheet of loculated postoperative fluid in the posterior lower abdomen is smaller than on the amari or exam. Tiny pockets of gas immediately adjacent to the bowel anastomosis in the right abdomen are stable. Gi jessy that no fluid has accumulated or there is evidence of communication to the abscess, it is unlikely to be a perforation. No evidence of bowel obstruction. Cholelithiasis.
--- NOTE | 2019-10-06 15:40 | DIS ---
DATE OF ADMISSION: 08/19/2019 DATE OF DISCHARGE: 10/06/2019 DISCHARGE DISPOSITION: LTAC. PRIMARY DISCHARGE DIAGNOSES: Enterocolitis, small bowel obstruction, status post adhesiolysis, status post laparotomy and wound dehiscence, postoperative prolonged ileus, stroke ruled out, abnormal electrolytes corrected, atrial fibrillation with rapid ventricular response.. SECONDARY DISCHARGE DIAGNOSES: Obesity, hypertension, history of cerebrovascular accident, dyslipidemia, diabetes type 2, paroxysmal atrial fibrillation, chronic anticoagulation. PRIMARY PROCEDURE/OPERATION: The patient underwent laparoscopic adhesiolysis, and subsequently it was converted to mini laparotomy. The patient required another exploratory laparotomy and extensive adhesiolysis as well as colectomy. The patient also required colonoscopy. RADIOLOGICAL INVESTIGATION: The patient had several abdominal x-ray, small-bowel x-ray, and several CT abdomen and pelvis while in hospital. MRI brain was negative for any acute CVA. Echocardiography showed EF 40% to 45%. SIGNIFICANT LABORATORY DATA: Hemoglobin 7.5, WBC 11.8, platelets 373. INR 1.4. Sodium 135, creatinine 0.67, AST 38, ALT 82, alkaline phosphatase 183, albumin 2.1. COVID-19 negative. Blood cultures remained negative. Abdominal abscess culture grew E. coli Enterococcus. Urine culture grew Enterococcus. DISCHARGE MEDICATIONS: Please see my discharge medication reconciliation for detailed medication. 1. Aspirin 81 mg daily. 2. Coreg 12.5 mg b.i.d. 3. Prozac 40 mg daily. 4. Gabapentin 300 mg t.i.d. 5. Imdur 30 mg daily. 6. Lisinopril 40 mg daily. 7. Metformin 500 mg daily. 8. Zocor 40 mg at bedtime. 9. Flomax 0.4 mg daily. 10. Albuterol nebulization q.6 hourly p.r.n. 11. Lovenox 40 mg subcu daily. 12. TPN. 13. Fluconazole 400 mg IV daily. 14. Humulin R with TPN. 15. Hydralazine p.r.n. 16. Lantus 5 units subcu in the morning. 17. Melatonin 3 mg p.o. at bedtime. 18. Meropenem 1 g IV t.i.d. 19. Nitroglycerin patch daily. 20. Zofran p.r.n. 21. Protonix daily. 22. Vancomycin. CONTRAINDICATION: None. CODE STATUS: Cardiac only. DISCHARGE PLAN: Post-hospital, the patient is discharged to LTAC. The patient will need TPN, wound care, specialty bed, PT, OT, antibiotic therapy, parenteral nutrition. HOSPITAL COURSE: A 73-year-old male, who was admitted on August 19, [address] Burch, please see his H and P for further details. On admission, there was concern of TIA and that is why the patient was evaluated by Neurology and the patient had a stroke workup done, which was negative for any new stroke. EEG was unremarkable. The patient was having prolonged enterocolitis, and subsequently repeat CT abdomen and pelvis confirmed small bowel obstruction. GI and General surgery were following while in hospital. The patient underwent 2 times surgery for a new diagnosis small bowel obstruction. Initially, the patient had a laparoscopic adhesiolysis and subsequently converted to mini laparotomy. The patient did not improve and he had prolonged postoperative ileus and obstruction, which was persisted and that is why the patient required to repeat laparotomy. Postoperatively, the patient had wound dehiscence and intra-abdominal abscess required drainage. The patient also had colectomy. The patient also developed AFib with RVR and that is why Cardiology was following. The patient also had postoperative respiratory insufficiency and that is why Pulmonology was following. This patient has almost 48 days of hospital course, and then, today only I saw him only 1 day. The patient is already accepted at LTAC and he will be discharged there. Dr. Castellon cleared him for discharge, and Dr. Caceres recommended to continue antibiotic therapy as ordered. The patient will continue TPN there, wound care, PT/OT, and diet advancement as tolerated. Abnormal electrolytes corrected while in-hospital. This patient's prognosis is very poor. Please see my progress note from today for more details. Total time spent on discharge is 32 minutes. Job ID: [id number]
[2019-10-06 16:06] LABS: Vancomycin, Trough 13.7 ug/mL
[2019-10-06] MEDS ORDERED: Chloraseptic Spray 180 ml Bottle PO PRN (18:05)
[2019-10-06] MEDS: Fluconazole In NaCl,Iso-Osm 400 MG in Premix Bag 1 BAG IVPB SCH (18:48)
[2019-10-06 19:38] VITALS: BP 127/67; TEMP 98.5
== END 2019-10-06 19:52 | DRG 853 ==
LOC: ERS 12:20 → 2SW 16:15 → 2SE 08-21 15:54 → CCU 08-27 17:26 → 2NO 08-29 11:32 → T4-B 09-02 17:11 → CCU 09-18 18:56 → SURG A 09-20 14:08
PROVIDERS: ADMIT Internal Medicine; ATTEND Internal Medicine
PROC: 0DNU4ZZ Release Omentum, Percutaneous Endoscopic Approach (ICD-10-PCS; principal; 2019-08-27)
PROC: 02HV33Z Insertion of Infusion Device into Superior Vena Cava, Percutaneous Approach (ICD-10-PCS; 2019-08-27)
PROC: 3E0336Z Introduction of Nutritional Substance into Peripheral Vein, Percutaneous Approach (ICD-10-PCS; 2019-08-27)
PROC: 0DBH8ZX Excision of Cecum, Via Natural or Artificial Opening Endoscopic, Diagnostic (ICD-10-PCS; 2019-09-12)
PROC: 0DBM8ZX Excision of Descending Colon, Via Natural or Artificial Opening Endoscopic, Diagnostic (ICD-10-PCS; 2019-09-12)
PROC: 0DBL8ZX Excision of Transverse Colon, Via Natural or Artificial Opening Endoscopic, Diagnostic (ICD-10-PCS; 2019-09-12)
PROC: 0DBF0ZZ Excision of Right Large Intestine, Open Approach (ICD-10-PCS; 2019-09-18)
PROC: 0DNU0ZZ Release Omentum, Open Approach (ICD-10-PCS; 2019-09-18)
PROC: 0D20XUZ Change Feeding Device in Upper Intestinal Tract, External Approach (ICD-10-PCS; 2019-09-28)
PROC: 0W9G3ZZ Drainage of Peritoneal Cavity, Percutaneous Approach (ICD-10-PCS; 2019-10-01)
PROC: BW20ZZZ Computerized Tomography (CT Scan) of Abdomen (ICD-10-PCS; 2019-10-01)
PROC: 02HV33Z Insertion of Infusion Device into Superior Vena Cava, Percutaneous Approach (ICD-10-PCS; 2019-10-03)
PROC: B548ZZA Ultrasonography of Superior Vena Cava, Guidance (ICD-10-PCS; 2019-10-03)
DX: A41.51 Sepsis due to Escherichia coli [E. coli] (principal); G92 Toxic encephalopathy; J18.9 Pneumonia, unspecified organism; K65.1 Peritoneal abscess; J96.00 Acute respiratory failure, unspecified whether with hypoxia or hypercapnia; K55.9 Vascular disorder of intestine, unspecified; K56.51 Intestinal adhesions [bands], with partial obstruction; I69.354 Hemiplegia and hemiparesis following cerebral infarction affecting left non-dominant side; E87.2 Acidosis; I42.9 Cardiomyopathy, unspecified; K56.7 Ileus, unspecified; E44.0 Moderate protein-calorie malnutrition; N39.0 Urinary tract infection, site not specified; K91.71 Accidental puncture and laceration of a digestive system organ or structure during a digestive system procedure; L02.211 Cutaneous abscess of abdominal wall; T81.31XA Disruption of external operation (surgical) wound, not elsewhere classified, initial encounter; I50.22 Chronic systolic (congestive) heart failure; Z51.5 Encounter for palliative care; Z20.828 Contact with and (suspected) exposure to other viral communicable diseases; E86.0 Dehydration; E11.42 Type 2 diabetes mellitus with diabetic polyneuropathy; N40.0 Benign prostatic hyperplasia without lower urinary tract symptoms; E78.5 Hyperlipidemia, unspecified; E66.01 Morbid (severe) obesity due to excess calories; I25.10 Atherosclerotic heart disease of native coronary artery without angina pectoris; E87.5 Hyperkalemia; E83.39 Other disorders of phosphorus metabolism; I48.0 Paroxysmal atrial fibrillation; E78.00 Pure hypercholesterolemia, unspecified; G47.33 Obstructive sleep apnea (adult) (pediatric); J30.9 Allergic rhinitis, unspecified; F01.50 Vascular dementia, unspecified severity, without behavioral disturbance, psychotic disturbance, mood disturbance, and anxiety; A41.81 Sepsis due to Enterococcus; D63.8 Anemia in other chronic diseases classified elsewhere; I11.0 Hypertensive heart disease with heart failure; K80.20 Calculus of gallbladder without cholecystitis without obstruction; R21 Rash and other nonspecific skin eruption; Y84.8 Other medical procedures as the cause of abnormal reaction of the patient, or of later complication, without mention of misadventure at the time of the procedure; Z86.718 Personal history of other venous thrombosis and embolism; Z79.01 Long term (current) use of anticoagulants; I25.2 Old myocardial infarction; Z95.5 Presence of coronary angioplasty implant and graft; Z90.49 Acquired absence of other specified parts of digestive tract; Z79.82 Long term (current) use of aspirin; Z79.899 Other long term (current) drug therapy; Z79.84 Long term (current) use of oral hypoglycemic drugs; Z86.711 Personal history of pulmonary embolism; Z99.3 Dependence on wheelchair; Z68.35 Body mass index [BMI] 35.0-35.9, adult; Z99.89 Dependence on other enabling machines and devices
CPT/HCPCS: 36415; 36416; 36569; 49020; 51701; 70551; 71045; 74018; 74019; 74022; 74177; 74250; 77002; 80048; 80053; 80061; 80076; 80202; 81001; 81003; 81015; 82550; 82553; 82805; 83605; 83690; 83735; 83880; 84100; 84134; 84484; 85007; 85014; 85018; 85025; 85027; 85049; 85060; 85610; 85730; 86140; 87040; 87045; 87046; 87070; 87077; 87086; 87186; 87205; 87324; 87427; 87449; 87635; 88305; 88307; 89051; 93005; 93010; 93306; 93970; 94002; 94003; 94640; 94760; 95712; 95816; 95819; 95957; 96365; 96366; 96367; 99292; A4217; C1751; C9113; J0360; J0670; J0692; J0696; J0744; J1450; J1650; J1815; J1885; J1940; J2001; J2060; J2185; J2250; J2270; J2405; J2543; J2704; J2765; J2997; J3010; J3370; J3475; J3480; J3490; J7030; J7050; J7120; J7611; P9045; Q9963; Q9967; S0020; U0003

== ENCOUNTER 2020-02-03 13:46 | Outpatient (CLI) | payer MEDICARE, OTHER ==
--- NOTE | 2020-02-03 14:52 | ULT ---
EXAM: Renal ultrasound INDICATIONS: Abnormal laboratory values COMPARISON: None. FINDINGS: Kidneys have normal sonographic appearance. Both kidneys measure approximately 11 cm in isdney gth. No hydronephrosis. No mass or cystic lesion. Urinary bladder unremarkable. Prostate appears enlarged measuring up to 5.0 cm. IMPRESSION: Unremarkable renal ultrasound Prostatic hypertrophy
--- NOTE | 2020-02-03 14:53 | ULT ---
EXAM: Soft tissue ultrasound right temporal region INDICATIONS: Palpable lump on head COMPARISON: None. FINDINGS: Hypoechoic solid circumscribed subcutaneous mass measuring 1.0 x 2.0 cm. IMPRESSION: Solid hypoechoic circumscribed oval shaped subcutaneous mass corresponds to the palpable abnormality.
== END 2020-02-03 13:47 | disposition home or self-care (01) ==
LOC: BICULT 13:46
PROVIDERS: ATTEND Physician Assistant
DX: R22.0 Localized swelling, mass and lump, head (principal); R82.90 Unspecified abnormal findings in urine; N28.9 Disorder of kidney and ureter, unspecified; N40.0 Benign prostatic hyperplasia without lower urinary tract symptoms
CPT/HCPCS: 76770; 76999

== ENCOUNTER 2020-04-20 12:21 | Inpatient (IN) | payer MEDICARE, OTHER ==
[2020-04-20] MEDS ORDERED: Ondansetron PF 4 MG/2 ML Vial ONE (12:39)
[2020-04-20 13:07] LABS: Band 21 % (5-11); Hemoglobin 11.5 g/dL (14.0-18.0); Lymphocytes 4 % (21-51); MDiff Complete? YES; Mean Corpuscular HGB CONC 33.3 g/dL (32.0-36.0); Mean Corpuscular Hemoglobin 31.6 pg (27.0-31.0); Mean Corpuscular Volume 94.8 fL (78.0-98.0); Monocytes 6 % (0-10); Neutrophil 66 % (42-75); Platelet Count 110 thou/uL (130-400); Platelet Morphology Comment Appears Decreased; RBC Distribution Width 11.8 % (11.5-14.5); RBC Morphology Normal; Reactive Lymphocytes 2 % (0-10); Red Blood Cell (RBC) Count 3.64 mill/uL (4.70-6.10)
[2020-04-20 13:10] LABS: ALT (SGPT) 44 U/L (8-55); AST (SGOT) 31 U/L (5-34); Albumin 3.3 g/dL (3.4-4.8); Alkaline Phosphatase 137 U/L (40-110); Anion Gap 19 mmol/L (10-20); BUN (Urea Nitrogen) 36 mg/dL (8.4-25.7); Bilirubin, Total 1.1 mg/dL (0.2-1.2); Calc. Creatinine Clearance 0 mL/min (70-130); Calcium 8.5 mg/dL (7.8-10.44); Carbon Dioxide 20 mmol/L (23-31); Chloride 104 mmol/L (98-107); Globulin 3.5 g/dL (2.4-3.5); Glucose 120 mg/dL (83-110); Potassium 3.5 mmol/L (3.5-5.1); Protein, Total 6.8 g/dL (5.8-8.1); Sodium 139 mmol/L (136-145)
[2020-04-20 13:32] LABS: CKMB 0.5 ng/mL (0-6.6)
[2020-04-20] MEDS ORDERED: Aspirin Chewable 81 MG TAB ONE (14:02)
[2020-04-20] MEDS ORDERED: Piperacillin/Tazobactam 4.5 GM VIAL ONE (14:12)
--- NOTE | 2020-04-20 14:23 | CT ---
CT of theabdomen and pelvis: 04/20/2020 COMPARISON:10/06/2019 HISTORY:Fever with nausea and vomiting, right-sided abdominal pain TECHNIQUE: Serial axial CT imaging at5 mm intervals from thelung bases through the pubic symphysis wi thout contrast. Coronal and sagittal reformatted imaging obtained Findings:The visualized lung bases demonstrate mild increased linear density bilaterally suggesting s car or volume loss. Coronary arterial calcification present. No free intraperitoneal air. The lack of contrast limits assessment of the viscera, bowel, vascular structures, and for lymphadeno juan jose. The liver and spleen demonstrate no acute findings. The pancreas and adrenal glands appear grossly unremarkable. No evidence for hydronephrosis or obstru ctive uropathy is appreciated on either side. The gallbladder is distended measuring at least 5.7 cm in transverse dimension. There is pericholecys tic inflammatory change and gallbladder wall thickening. 2 stones are noted in the expected region of the central body/neck measuring 6-7 mm. Findings are suspicious for acute cholecystitis. There is mild stranding of the fat within the presacral space, a nonspecific stable finding. The patient appears status post right hemicolectomy. No evidence for bowel obstruction. Extensive ath erosclerotic calcification of the abdominal aorta and its branches. Review of the osseous structures demonstrates a nonspecific sclerotic focus within the sacrum on the left on axial image 77 measuring 1.5 cm. There is a stable sclerotic focus within the iliac bone medially on the right measuring 1 cm. There is multilevel lower lumbar spine degenerative change with disc space narrowing and facet hypertrophy. Impression:Interval development of inflammatory change associated with the gallbladder suspicious for acute cholecystitis. Extensive atherosclerotic disease. Pelvic sclerotic foci, nonspecific and stable. Findings concerning for acute cholecystitis discussed with Dr. Tatum at 2:20 PM 04/20/2020
--- NOTE | 2020-04-20 14:52 | ULT ---
GALLBLADDER ULTRASOUND: HISTORY: Right upper quadrant pain. COMPARISON: CT examination done earlier today. FINDINGS: Real-time imaging of the right upper quadrant of the abdomen shows a distended gallbladder with galls tones. The gallbladder wall appears thickened. It measures in the 5-6 mm range. Visualized liver p arenchyma shows no focal abnormalities. The common bile duct is in the 4-5 mm range. The right kidney is normal in size and not obstructed. The pancreas is obscured. IMPRESSION: Distended gallbladder with sludge and stones within the gallbladder, also mild gallbladder wall thick ening with a normal-caliber common duct. POS: STEWART
[2020-04-20] MEDS ORDERED: Ondansetron PF 4 MG/2 ML Vial IVP PRN (15:21)
[2020-04-20] MEDS ORDERED: Ondansetron ODT 4 MG TAB PO PRN (15:21)
[2020-04-20] MEDS ORDERED: Insulin Regular 300 UNITS/3 ML VIAL SC PRN (15:21)
[2020-04-20] MEDS ORDERED: Dextrose 5% in Water 1,000 ML IV PRN (15:21)
[2020-04-20] MEDS ORDERED: HumaLOG 300 UNITS/3 ML VIAL SC PRN ×2 (15:21→23:48)
[2020-04-20] MEDS ORDERED: Morphine 4 MG/ML VIAL SLOW IVP PRN (15:21)
[2020-04-20] MEDS ORDERED: Dextrose 50% Abboject 50 ML SYRINGE SLOW IVP PRN (15:21)
[2020-04-20] MEDS ORDERED: Morphine 2 MG/ML VIAL SLOW IVP PRN (15:21)
[2020-04-20] MEDS ORDERED: hydrALAZINE 20 MG/ML VIAL SLOW IVP PRN (15:21)
[2020-04-20] MEDS ORDERED: Sodium Chloride 0.9% 1,000 ML IV SCH (15:30)
--- NOTE | 2020-04-20 17:52 | CON ---
DATE OF CONSULTATION: HISTORY OF PRESENT ILLNESS: The patient is a 74-year-old gentleman with a history of coronary artery disease and atrial fibrillation, who presented with abdominal discomfort. The patient has a long history of coronary artery disease. In 2005, he underwent a cardiac catheterization. He was found to have normal left ventricular ejection fraction. The patient had diffuse 3-vessel coronary artery disease. He subsequently underwent PTCA and stent placement into the right coronary artery and ramus vessel. The patient was usual state of health when he presented in 2012 with a cerebrovascular accident. The patient was found to be in atrial fibrillation. He subsequently was placed on anticoagulation therapy. The patient recently had a prolonged hospitalization secondary to ischemic colon. The patient subsequently has been doing well. He was admitted with abdominal discomfort. The patient denies having any chest pain. He denies having any dyspnea or palpitations. PAST MEDICAL HISTORY: 1. Coronary artery disease. 2. Cerebrovascular accident. 3. History of pulmonary embolus. 4. Hypertension. 5. Dyslipidemia. PAST SURGICAL HISTORY: Appendectomy, hemorrhoidectomy, and shrapnel removal. MEDICATIONS: See nursing list. ALLERGIES: NONE. SOCIAL HISTORY: Nonsmoker. FAMILY HISTORY: Positive family history of coronary artery disease. PHYSICAL EXAMINATION: GENERAL: This is an obese gentleman, in no acute distress. VITAL SIGNS: Blood pressure was 105/51. NECK: No jugular venous distention. LUNGS: Clear to auscultation. HEART: Regular rate and rhythm with a normal S1, S2. No murmurs. ABDOMEN: Distended. EXTREMITIES: Showed trace edema. VASCULAR: Radial pulses are 2+. LABORATORY DATA: White blood cell count 15.0, hemoglobin 11.5, hematocrit 34.5, and platelets 110. Sodium 139, potassium 3.5, chloride 104, bicarbonate 20, BUN 36, creatinine 2.3, and glucose is 120. Troponin level is 0.081. EKG normal sinus rhythm, Q-waves suggestive of previous inferior infarct, low- voltage QRS. IMPRESSION: 1. Acute cholecystitis. 2. History of recent multiple abdominal surgeries, colon surgery. 3. Coronary artery disease. 4. Paroxysmal atrial fibrillation. 5. Hypertension. 6. Diabetes mellitus. PLAN: This patient presents with cholecystitis. The patient's troponin level is mildly elevated, most likely secondary to acute renal insufficiency and dehydration. From a Cardiac standpoint, he is asymptomatic and this is acceptable risk for proceeding with cholecystectomy. We will follow this patient with you through his hospitalization. Job ID: [id number] MTDD
[2020-04-20 17:59] LABS: Bilirubin Negative (Negative); Blood, Urine 2+ (Negative); Clarity Turbid (Clear); Glucose, Urine (Dipstick) Normal (Negative); Ketone, Urine Negative (Negative); Leukocyte Negative Leu/uL (Negative); Nitrite Negative (Negative); Protein, Urine (Dipstick) 70 mg/dL (Neg-Trace); RBC/HPF 21-50 HPF (0-3); Specific Gravity, Urine 1.022 (1.002-1.036); Squamous Epithelial 0-3 HPF (0-3); pH, Urine 5.5 (5.0-9.0)
[2020-04-20 18:01] LABS: WBC/HPF 0-3 HPF (0-3)
[2020-04-20 18:02] LABS: Bacteria/HPF Rare-Few HPF (None Seen)
[2020-04-20 18:26] LABS: SARS-CoV-2 NAA Rapid Test Not Detected (NotDetected)
[2020-04-20] MEDS: Piperacillin/Tazobactam 2.25 GM in Sodium Chloride 0.9% 100 ML IVPB SCH (21:27)
[2020-04-20] MEDS: Carvedilol 6.25 MG TAB PO SCH (21:28)
[2020-04-20] MEDS: Melatonin 3 MG TAB PO SCH (21:28)
[2020-04-20 21:59] VITALS: BMI 32.1
[2020-04-20] MEDS ORDERED: Acetaminophen 650 MG Suppository PR PRN (23:23)
[2020-04-20] MEDS ORDERED: Acetaminophen 325 MG TAB PO PRN (23:23)
--- NOTE | 2020-04-20 23:58 | PDOC.HHP ---
Hospitalist [facility] History of Present Illness: CONSULTATION NOTE CONSULTATION DATE: 04/20/2020 TIME OF ASSESSMENT: 2099 REFERRING PHYSICIAN: Dr. Castellon REASON FOR CONSULTATION: Medical management PRIMARY CARE PHYSICIAN: Dr. Ritchie CHIEF COMPLAINT: "My stomach does not feel right " HPI: This is a 74-year-old gentleman who presents emergency department today with complaints of persistent nausea vomiting and abdominal discomfort which started on Sunday. He states he has continued to feel poorly over the weekend and for the last 2 days has not had anything to eat. Reports the pain is worse on the right side of his abdomen but he also has diffuse discomfort. It is exacerbated with deep inspiration and coughing. Denies having any chest pain palpitations or shortness of breath. Denies having any hematemesis or bright red blood per rectum. In the emergency department he underwent laboratory studies that are notable for leukocytosis with a white cell count of 15. His renal function was altered compared to baseline with a creatinine of 2.36 and a GFR of 27. LFTs unremarkable and lipase was not checked. He was noted to have an indeterminate troponin of 0.081 with no complaints of chest pain. EKG was completed and he has since been cleared by cardiology for cholecystectomy. The patient had abdominal imaging that consisted of a CT of the abdomen and pelvis which demonstrated inflammatory changes within the gallbladder suspicious for acute cholecystitis. This was followed by a gallbladder ultrasound demonstrating gallbladder wall thickening as well as sludge with stones. The common bile duct was normal in caliber. The patient received 3 L of normal saline and was started on IV antibiotics with Zosyn. For his nausea and vomiting he received Zofran. He was admitted by Dr. Castellon with plans to undergo cholecystectomy. At the moment he states he feels better than when he first presented to the ER. Denies having any abdominal pain at this present time. Has not had any further episodes of vomiting since admission. He did have a loose stool just a few moments ago. All other review of systems apart from what is mentioned above in HPI are negative. Allergies/Adverse Reactions: Allergy/AdvReac Type Severity Reaction Status Date / Time No Known Drug Allergies Allergy Verified 04/20/20 23:51 Home Medications: Medication Instructions Recorded Confirmed Type Lisinopril 20 mg PO DAILY 03/10/13 04/20/20 History FLUoxetine HCl [Prozac] 40 mg PO DAILY 04/14/13 04/20/20 History Tamsulosin HCl [Flomax] 0.4 mg PO HS 04/14/13 04/20/20 History Simvastatin [Zocor] 40 mg PO HS 04/17/13 04/20/20 History Carvedilol [Coreg] 6.25 mg PO BID 04/26/13 04/20/20 History Isosorbide Mononitrate [Imdur] 30 mg PO DAILY 04/26/13 04/20/20 History Gabapentin 300 mg PO TID 07/06/14 04/20/20 History Melatonin 3 mg PO HS #30 tab 10/06/19 04/20/20 Rx Furosemide 1 tab PO DAILY 04/20/20 04/20/20 History Levothyroxine Sodium 1 tab PO DAILY 04/20/20 04/20/20 History Pantoprazole Sodium 1 tab PO DAILY 04/20/20 04/20/20 History Pioglitazone HCl 2 tab PO DAILY 04/20/20 04/20/20 History Potassium Chloride [K-Dur] 1 tab PO BID 04/20/20 04/20/20 History Past History: PAST MEDICAL HISTORY: 1. Obesity 2. 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 CAD 6. Dyslipidemia 7. Diabetes mellitus PAST SURGICAL HISTORY: 1. Appendectomy 2. Hemorrhoidectomy 3. Shrapnel removal SOCIAL HISTORY: Patient lives with his . Denies any tobacco use alcohol consumption or drug use. FAMILY HISTORY: Positive for CAD. Hospitalist Exam Vitals: Vital Signs (12 hours) Temp Pulse Resp BP BP Pulse Ox 04/20/20 23:35 98.6 F 59 L 18 108/40 L 91 L 04/20/20 21:28 134/67 04/20/20 20:02 97.9 F 58 L 18 129/73 92 L 04/20/20 19:55 97.9 F 58 L 18 129/73 92 L Weight Weight 210 lb 14.4 oz Hospitalist Results Result Diagrams: 04/20/20 12:33 04/20/20 12:33 Lab results: Laboratory Last Values WBC 15.0 thou/uL (4.8-10.8) H 04/20/20 12:33 RBC 3.64 mill/uL (4.70-6.10) L 04/20/20 12:33 Hgb 11.5 g/dL (14.0-18.0) L 04/20/20 12:33 Hct 34.5 % (42.0-52.0) L 04/20/20 12:33 MCV 94.8 fL (78.0-98.0) 04/20/20 12:33 MCH 31.6 pg (27.0-31.0) H 04/20/20 12:33 MCHC 33.3 g/dL (32.0-36.0) 04/20/20 12:33 RDW 11.8 % (11.5-14.5) 04/20/20 12:33 Plt Count 110 thou/uL (130-400) L 04/20/20 12:33 MPV 10.0 fL (7.4-10.4) 04/20/20 12:33 Neutrophils % (Manual) 66 % (42-75) 04/20/20 12:33 Band Neuts % (Manual) 21 % (5-11) H 04/20/20 12:33 Lymphocytes % (Manual) 4 % (21-51) L 04/20/20 12:33 Reactive Lymphs % 2 % (0-10) 04/20/20 12:33 Monocytes % (Manual) 6 % (0-10) 04/20/20 12:33 Basophils % (Manual) 1 % (0-2) 04/20/20 12:33 Plt Morphology Comment Appears Decreased L 04/20/20 12:33 RBC Morph Comment Normal 04/20/20 12:33 Sodium 139 mmol/L (136-145) 04/20/20 12:33 Potassium 3.5 mmol/L (3.5-5.1) 04/20/20 12:33 Chloride 104 mmol/L (98-107) 04/20/20 12:33 Carbon Dioxide 20 mmol/L (23-31) L 04/20/20 12:33 Anion Gap 19 mmol/L (10-20) 04/20/20 12:33 BUN 36 mg/dL (8.4-25.7) H 04/20/20 12:33 Creatinine 2.36 mg/dL (0.7-1.3) H 04/20/20 12:33 Estimated GFR (MDRD) 27 04/20/20 12:33 Glucose 120 mg/dL (83-110) H 04/20/20 12:33 POC Glucose 108 mg/dL (70-100) H 04/20/20 23:41 Calcium 8.5 mg/dL (7.8-10.44) 04/20/20 12:33 Total Bilirubin 1.1 mg/dL (0.2-1.2) 04/20/20 12:33 AST 31 U/L (5-34) 04/20/20 12:33 ALT 44 U/L (8-55) 04/20/20 12:33 Alkaline Phosphatase 137 U/L (40-110) H 04/20/20 12:33 CK-MB (CK-2) 0.5 ng/mL (0-6.6) 04/20/20 12:33 Troponin I 0.081 ng/mL (< 0.028) H 04/20/20 12:33 Serum Total Protein 6.8 g/dL (5.8-8.1) 04/20/20 12:33 Albumin 3.3 g/dL (3.4-4.8) L 04/20/20 12:33 Globulin 3.5 g/dL (2.4-3.5) 04/20/20 12:33 Albumin/Globulin Ratio 0.9 g/dL (1.2-2.2) L 04/20/20 12:33 Urine Color Yellow (Yellow) 04/20/20 16:50 Urine Clarity Turbid (Clear) A 04/20/20 16:50 Urine pH 5.5 (5.0-9.0) 04/20/20 16:50 Ur Specific Grayling 1.022 (1.002-1.036) 04/20/20 16:50 Urine Protein 70 mg/dL (Neg-Trace) A 04/20/20 16:50 Urine Glucose (UA) Normal mg/dL (Negative) 04/20/20 16:50 Urine Ketones Negative mg/dL (Negative) 04/20/20 16:50 Urine Blood 2+ (Negative) A 04/20/20 16:50 Urine Nitrite Negative (Negative) 04/20/20 16:50 Urine Bilirubin Negative (Negative) 04/20/20 16:50 Urine Urobilinogen 2.0 mg/dL (Less than 2) A 04/20/20 16:50 Ur Leukocyte Esterase Negative Tania/uL (Negative) 04/20/20 16:50 Urine RBC 21-50 HPF (0-3) A 04/20/20 16:50 Urine WBC 0-3 HPF (0-3) 04/20/20 16:50 Ur Squamous Epith Cells 0-3 HPF (0-3) 04/20/20 16:50 Amorphous Crystals 3+ HPF (None Seen) A 04/20/20 16:50 Urine Bacteria Rare-Few HPF (None Seen) 04/20/20 16:50 Influenza A RNA INAAT Not Detected (NotDetected) 04/20/20 14:44 Influenza B RNA INAAT Not Detected (NotDetected) 04/20/20 14:44 SARS-CoV-2 Rap RNA(RT-PCR) Not Detected (NotDetected) 04/20/20 14:44 Hospitalist H&P A/P (1) Acute cholecystitis Code(s): K81.0 - ACUTE CHOLECYSTITIS Status: Acute Assessment and Plan: Repeat LFTs with AM labs Check lipase and lactic acid Continue IV antibiotics, renal dosing As per surgical team (2) N&V (nausea and vomiting) Code(s): R11.2 - NAUSEA WITH VOMITING, UNSPECIFIED Status: Acute Assessment and Plan: Continue Zofran (3) Diarrhea Code(s): R19.7 - DIARRHEA, UNSPECIFIED Status: Acute Assessment and Plan: stool studies ordered monitor electrolytes, check Mg+ (4) Elevated troponin I level Code(s): R77.8 - OTHER SPECIFIED ABNORMALITIES OF PLASMA PROTEINS Status: Acute Assessment and Plan: repeat trop and check BNP (5) [id number] kidney injury Code(s): N17.9 - ACUTE KIDNEY FAILURE, UNSPECIFIED; N18.9 - CHRONIC KIDNEY DISEASE, UNSPECIFIED Status: Acute Assessment and Plan: Monitor renal function Consider nephrology consult Avoid nephrotoxic meds, lisinopril discontinued (6) Chronic anticoagulation Code(s): Z79.01 - SHELTER (CURRENT) USE OF ANTICOAGULANTS Status: Chronic (7) DM type 2 (diabetes mellitus, type 2) Status: Chronic Qualifiers: Diabetes mellitus intermediate designer insulin use: without halfway use Diabetes mellitus complication status: with neurologic complications Diabetes mellitus complication detail: with polyneuropathy Qualified Code(s): E11.42 - Type 2 diabetes mellitus with diabetic polyneuropathy Assessment and Plan: In light of renal function and decreased PO intake cover with ISS only Accucheks ACHS (8) Dyslipidemia Code(s): E78.5 - HYPERLIPIDEMIA, UNSPECIFIED Status: Chronic (9) H/O: CVA (cerebrovascular accident) Code(s): Z86.73 - PRSNL HX OF TIA (TIA), AND CEREB INFRC W/O RESID DEFICITS Status: Chronic Assessment and Plan: Left sided deficits Chronic and stable (10) HTN (hypertension) Code(s): I10 - ESSENTIAL (PRIMARY) HYPERTENSION Status: Chronic Qualifiers: Hypertension type: essential hypertension Qualified Code(s): I10 - Essential (primary) hypertension Assessment and Plan: Monitor BP Resume home meds as appropriate Lisinopril held in light of REA (11) Obesity (BMI 30.0-34.9) Code(s): E66.9 - OBESITY, UNSPECIFIED Status: Chronic Plan: GI prophylaxis - Famotidine DVT Prophylaxis - patient on chronic anticoagulation Case discussed with Dr. Ding who agrees with plan as above
[2020-04-21 00:33] LABS: Lactic Acid 1.6 mmol/L (0.5-2.2)
[2020-04-21 00:35] LABS: Albumin 3.1 g/dL (3.4-4.8); Anion Gap 13 mmol/L (10-20); BUN (Urea Nitrogen) 33 mg/dL (8.4-25.7); BUN/Creatinine Ratio 15.21; Calc. Creatinine Clearance 39 mL/min (70-130); Calcium 7.9 mg/dL (7.8-10.44); Carbon Dioxide 24 mmol/L (23-31); Chloride 109 mmol/L (98-107); Glucose 106 mg/dL (83-110); Magnesium 1.3 mg/dL (1.6-2.6); Potassium 3.6 mmol/L (3.5-5.1); Sodium 142 mmol/L (136-145)
[2020-04-21 00:59] LABS: CKMB 0.8 ng/mL (0-6.6)
[2020-04-21] MEDS: Sodium Chloride 0.45% 1,000 ML IV SCH ×4 (01:30→19:48)
[2020-04-21] MEDS: Piperacillin/Tazobactam 2.25 GM in Sodium Chloride 0.9% 100 ML IVPB SCH ×4 (01:31→20:25)
--- NOTE | 2020-04-21 05:43 | HP ---
HISTORY OF PRESENT ILLNESS: Andrae Werner is a 74-year-old male patient, lives at home. He was recently hospitalized for prolonged hospitalization from 08/18 to 10/06/2019. The patient during that hospitalization required two operations for bowel obstruction. The patient initially admitted by the hospitalist on 08/19/2019, and I saw him on 08/24/2019. He had a long history of paroxysmal atrial fibrillation, on anticoagulation. He had a past history of appendectomy, hemorrhoidectomy, colonoscopy with Dr. Hart in 2011. Had shrapnel removed from the abdominal wall when in [place], cataract extraction, left shoulder lipoma removed in the past. The patient underwent a small bowel follow-through, demonstrated complete obstruction, undergoing 08/27/2019 laparoscopy, converted to a mini laparotomy with closure of serosal tears and adhesiolysis. He had NG tube, and after prolonged nonoperative trial on 09/18/2019, he was taken back to the operating room for laparotomy, adhesiolysis, right colectomy, ileocolic anastomosis stapled due to high-grade partial bowel obstruction secondary to adhesions. During the hospitalization 09/12/2019, Dr. Verduzco performed a colonoscopy due to an abnormal CAT scan showing a possible mass in the cecum, which colonoscopy did not support. The terminal ileum was normal. The patient was as noted above taken back to operating room for extensive adhesiolysis and right colectomy. The patient after that hospitalization went to an LTAC in the [place], transferred back to our rehab, and went home on January 06. The patient for the last few days had been feeling very weak. Today is Sunday, since Sunday after having ribs, he suffered nausea, vomiting, epigastric right upper quadrant pain. The patient was brought to the emergency room and CAT scan of the abdomen and pelvis revealed inflammatory changes about the gallbladder, multiple gallstones, distended gallbladder. There is no evidence of bowel obstruction. It was felt that he had acute cholecystitis by CAT scan. Ultrasound was subsequently obtained, revealed a distended gallbladder with sludge and stones with gallbladder wall thickening, normal bile duct caliber of 4-5 mm. On exam, the patient has exquisite tenderness to right upper quadrant. His white count is 15, hemoglobin 11. Liver function tests are normal. Lipase was not ordered. CAT scan did not reveal any changes of pancreatitis. Of note is that the patient on 04/01/[address] Vital in the office, had a soft tissue mass from his right scalp removed, which is an epidermal inclusion cyst. The patient has received Zosyn in the emergency room. His BUN is 36, creatinine 2.36 consistent with dehydration. His renal function has been normal in the past for the most part. This is consistent with the patient's nausea and vomiting in the past four days. Considering the patient has seen Dr. Vital in the office, I have asked the patient and his if they would rather have Dr. Vital see them. The patient, however, requests that I continue to care for him. ALLERGIES: NONE. MEDICATIONS: At home, 1. Metformin. 2. Hydralazine. 3. p.o. 4. Flomax. 5. Simvastatin. 6. Protonix. 7. Gabapentin. medication list in the emergency room are those medications from past admission are not accurate. We will ask nurses to reconcile his medication list. ER notes medications include, 1. Gabapentin 100 mg three times a day. 2. Flomax 0.4 mg a day. 3. Fluoxetine 40 mg a day. 4. Isosorbide 30 mg a day. 5. Simvastatin 40 mg a day. 6. Carvedilol 6.25 mg twice a day. 7. Lisinopril 40 mg a day. 8. Pioglitazone 15 mg once a day. 9. Protonix 40 mg a day. 10. Furosemide 40 mg a day. 11. Levothyroxine 25 mcg a day. 12. Multivitamins daily. 13. Potassium chloride daily. PAST MEDICAL HISTORY: Paroxysmal atrial fibrillation, on chronic anticoagulation, Eliquis, which he takes twice a day, last dose consumed last night, Sunday night, left leg DVT in 2013, stroke in 2012, hypertension, atrial fibrillation, diabetes type 2. PAST SURGICAL HISTORY: Hemorrhoidectomy, cataract surgery, colonoscopy, cardiac stents, appendectomy. Operations, laparotomy August 26 and September 17 as noted above. SOCIAL HISTORY: Alcohol use, none. Tobacco use, none. FAMILY HISTORY: None. LABORATORY DATA: Echocardiogram, 08/22/2019, 40% EF, mild tricuspid regurg. Dr. Barber is his primer boxer. He was seen by Dr. Howard in September 05 hospitalization. Cardiac catheterization in 2005, stents circumflex, a month later stent to ramus, coronary vessel disease too small to intervene. PHYSICAL EXAMINATION: PEGGY SIGNS: 130/72, 61, 98.5 degrees. HEAD, EARS, EYES, NOSE AND THROAT: Unremarkable. LUNGS: Clear to auscultation. CARDIAC: Regular rate and rhythm. No murmur or gallop. ABDOMEN: Soft, tenderness to right upper quadrant, guarding, rebound. EXTREMITIES: No ankle edema. ASSESSMENT: 1. Acute kidney injury secondary to dehydration. Rehydrate. Observe renal function. 2. Anticoagulation, on Eliquis. Hold Eliquis in preparation for surgery . 3. History of coronary artery disease, cardiac consultation in preparation for surgery . 4. Deconditioning. Physical therapy to maintain strength and mobility. Nursing up in a chair and ambulate as needed. 5. Preprocedure COVID testing. Job ID: [id number]
[2020-04-21 08:55] LABS: ALT (SGPT) 50 U/L (8-55); AST (SGOT) 47 U/L (5-34); Albumin 2.9 g/dL (3.4-4.8); Alkaline Phosphatase 218 U/L (40-110); Anion Gap 15 mmol/L (10-20); BUN (Urea Nitrogen) 33 mg/dL (8.4-25.7); Bilirubin, Total 0.9 mg/dL (0.2-1.2); Calc. Creatinine Clearance 40 mL/min (70-130); Calcium 7.8 mg/dL (7.8-10.44); Carbon Dioxide 21 mmol/L (23-31); Chloride 110 mmol/L (98-107); Globulin 3.1 g/dL (2.4-3.5); Glucose 92 mg/dL (83-110); Magnesium 1.2 mg/dL (1.6-2.6); Potassium 3.2 mmol/L (3.5-5.1); Sodium 143 mmol/L (136-145)
[2020-04-21] MEDS ORDERED: Lisinopril 20 MG TAB PO SCH (09:00)
[2020-04-21] MEDS ORDERED: Furosemide 20 MG TAB PO SCH (09:00)
[2020-04-21] MEDS: Aspirin 81 mg Enteric Coated Tablet PO SCH (09:20)
[2020-04-21] MEDS: Carvedilol 6.25 MG TAB PO SCH ×2 (09:21→20:25)
[2020-04-21] MEDS: Tamsulosin HCl 0.4 MG CAP PO SCH (09:22)
[2020-04-21] MEDS: Famotidine/PF 20 mg/2ml Vial SLOW IVP SCH (09:22)
[2020-04-21 10:05] LABS: Band 19 % (5-11); Hemoglobin 9.8 g/dL (14.0-18.0); Lymphocytes 14 % (21-51); MDiff Complete? YES; Mean Corpuscular HGB CONC 32.9 g/dL (32.0-36.0); Mean Corpuscular Volume 94.1 fL (78.0-98.0); Mean Platelet Volume 10.8 fL (7.4-10.4); Monocytes 2 % (0-10); Neutrophil 64 % (42-75); Platelet Count 108 thou/uL (130-400); Platelet Morphology Comment Appears Decreased; Polychromasia SLIGHT = 2-3 cells (100X) (0-2/hpf); RBC Distribution Width 11.8 % (11.5-14.5); Reactive Lymphocytes 1 % (0-10); Red Blood Cell (RBC) Count 3.17 mill/uL (4.70-6.10); White Blood Cell (WBC) Count 10.3 thou/uL (4.8-10.8)
--- NOTE | 2020-04-21 10:27 | RAD ---
PORTABLE CHEST: Date: 04/20/2020 HISTORY: Dyspnea. COMPARISON: 09/29/2019 exam. FINDINGS: Heart size is enlarged. Aorta is tortuous. The lungs are clear of infiltrates. No signs of failure. IMPRESSION: Mild cardiomegaly. POS: STEWART
[2020-04-21] MEDS ORDERED: Potassium Chloride 40 MEQ in Sodium Chloride 0.9% 250 ML 250 ML IVPB SCH (12:00)
[2020-04-21] MEDS ORDERED: traMADol HCl 50 MG TAB PO PRN (15:10)
[2020-04-21] MEDS ORDERED: Magnesium 2 GM/50 ML 2 GM in Premix Bag 1 BAG IVPB SCH (15:30)
--- NOTE | 2020-04-21 15:38 | PRG ---
DATE OF SERVICE: 04/21/2020 SUBJECTIVE: Mr. Werner is doing well today, feels somewhat better, although still having right upper quadrant pain. OBJECTIVE: VITAL SIGNS: He has been afebrile, 98.3 degrees, heart rate is 56, 129/75. Nephrology has seen him, Dr. Martinez had seen him in the past regarding his CKD. LUNGS: Clear to auscultation. CARDIAC: Regular rate and rhythm. No murmur or gallop. ABDOMEN: Soft, tenderness in his right upper quadrant with guarding. LABORATORY DATA: White count 10, hemoglobin 9.8. His liver function tests are normal. Potassium 3.2, sodium 143, BUN and creatinine 33 and 2.12. GFR 31, previously 42. ASSESSMENT AND PLAN: 1. Acute cholecystitis and cholelithiasis. 2. Dehydration. 3. REA. Continue hydration. We will discontinue diuretic which has been ordered by someone. Job ID: [id number]
--- NOTE | 2020-04-21 15:40 | PDOC.HOSPP ---
- Subjective Encounter Date: 04/21/20 Subjective: Does not talk a great deal. He does indicate that he feels okay. Says he is breathing okay. Does not have much overt abdominal pain but does continue to have some tenderness. His is present in the room with him. She tells me that the patient's kidney function had improved significantly since his admission in the summer. Currently his numbers are back to where he was at the time of his discharge in September. - Objective Vital Signs & Weight: Vital Signs (12 hours) Temp Pulse Resp BP BP Pulse Ox 04/21/20 12:25 98.3 F 56 L 16 129/75 92 L 04/21/20 09:21 133/77 04/21/20 08:00 92 L 04/21/20 07:35 98.3 F 59 L 16 133/77 92 L Weight Weight 210 lb 14.4 oz Result Diagrams: 04/21/20 05:30 04/21/20 05:30 Additional Labs: Accuchecks 04/21/20 04/21/20 04/20/20 12:30 06:49 23:41 POC Glucose 108 H 88 108 H Hospitalist ROS - Medication Medications: Active Medications Generic Name Dose Route Start Last Admin Trade Name Freq PRN Reason Stop Dose Admin Aspirin 81 mg 04/21/20 09:00 04/21/20 09:20 Aspirin 81 Mg Enteric Coated Tablet PO 81 mg DAILY KATHYA Administration Carvedilol 12.5 mg 04/20/20 21:00 04/21/20 09:21 Carvedilol 6.25 Mg Tab PO 12.5 mg BID KATHYA Administration Famotidine 20 mg 04/21/20 09:00 04/21/20 09:22 Famotidine/Pf 20 Mg/2ml Vial SLOW IVP 20 mg DAILY KATHYA Administration Piperacillin Sod/Tazobactam 100 mls @ 200 mls/hr 04/20/20 20:00 04/21/20 15:29 Sod 2.25 gm/ Sodium Chloride IVPB 100 mls 0200,0800,1400,2000 KATHYA Administration Potassium Chloride 40 meq/ 270 mls @ 67.5 mls/hr 04/21/20 12:00 04/21/20 12:40 Sodium Chloride IVPB 04/21/20 15:59 270 mls NOW KATHYA Administration Isosorbide Mononitrate 30 mg 04/21/20 09:00 04/21/20 09:22 Isosorbide Mononitrate Er 30 Mg Tab PO 30 mg DAILY KATHYA Administration Melatonin 3 mg 04/20/20 21:00 04/20/20 21:28 Melatonin 3 Mg Tab PO 3 mg HS KATHYA Administration Tamsulosin HCl 0.4 mg 04/21/20 09:00 04/21/20 09:22 Tamsulosin Hcl 0.4 Mg Cap PO 0.4 mg DAILY KATHYA Administration Hospitalist Exam Vitals: Vital Signs (12 hours) Temp Pulse Resp BP BP Pulse Ox 04/21/20 12:25 98.3 F 56 L 16 129/75 92 L 04/21/20 09:21 133/77 04/21/20 08:00 92 L 04/21/20 07:35 98.3 F 59 L 16 133/77 92 L Weight Weight 210 lb 14.4 oz General - other findings: Minimally verbal. Left hemiplegia Heart: RRR, no murmur, no gallops, no rubs, normal peripheral pulses Respiratory: CTAB, no wheezes, no rales, no ronchi, no tachypnea Respiratory - other findings: His reported she did not hear him have some wheezing Gastrointestinal: soft, non-distended, normal bowel sounds, no palpable masses, tender to palpation (Right upper quadrant) Extremities: 1+ LE edema Musculoskeletal - other findings: Left weakness/paralysis Psychiatric: flat affect Hosp A/P (1) Acute cholecystitis Code(s): K81.0 - ACUTE CHOLECYSTITIS Status: Acute (2) Abdominal pain Code(s): R10.9 - UNSPECIFIED ABDOMINAL PAIN Status: Acute (3) Szamc-ro-rjqjfsp kidney injury Code(s): N17.9 - ACUTE KIDNEY FAILURE, UNSPECIFIED; N18.9 - CHRONIC KIDNEY DISEASE, UNSPECIFIED Status: Acute (4) N&V (nausea and vomiting) Code(s): R11.2 - NAUSEA WITH VOMITING, UNSPECIFIED Status: Acute (5) Hemiplegia of left nondominant side as late effect of cerebral infarction Code(s): I69.354 - HEMIPLGA FOLLOWING CEREBRAL INFRC AFFECTING LEFT NONDOM SIDE Status: Acute (6) Paroxysmal atrial fibrillation Code(s): I48.0 - PAROXYSMAL ATRIAL FIBRILLATION Status: Acute (7) DM type 2 (diabetes mellitus, type 2) Status: Chronic Qualifiers: Diabetes mellitus prison insulin use: without buttermaker helper use Diabetes mellitus complication status: with neurologic complications Diabetes mellitus complication detail: with polyneuropathy Qualified Code(s): E11.42 - Type 2 diabetes mellitus with diabetic polyneuropathy (8) Dyslipidemia Code(s): E78.5 - HYPERLIPIDEMIA, UNSPECIFIED Status: Chronic (9) H/O: CVA (cerebrovascular accident) Code(s): Z86.73 - PRSNL HX OF TIA (TIA), AND CEREB INFRC W/O RESID DEFICITS Status: Chronic (10) HTN (hypertension) Code(s): I10 - ESSENTIAL (PRIMARY) HYPERTENSION Status: Chronic Qualifiers: Hypertension type: essential hypertension Qualified Code(s): I10 - Essential (primary) hypertension (11) Obesity (BMI 30.0-34.9) Code(s): E66.9 - OBESITY, UNSPECIFIED Status: Chronic (12) Dehydration Code(s): E86.0 - DEHYDRATION Status: Acute (13) History of diastolic dysfunction Code(s): Z86.79 - PERSONAL HISTORY OF OTHER DISEASES OF THE CIRCULATORY SYSTEM Status: Acute - Plan (1) Acute cholecystitis Patient presented with nausea, vomiting, abdominal pain. CT scan of the abdomen consistent with inflammation of the gallbladder. Ultrasound of the gallbladder appeared to be consistent with inflammatory changes. Admitted to general surgery. Initial LFTs were normal. Very subtle increase on repeat Continue IV antibiotics, Zosyn, renal dosing. Appears as though he will be having surgery in a couple of days. We will allow for the patient's Eliquis to metabolize away. (2) N&V (nausea and vomiting) Secondary to cholecystitis. Continue Zofran as needed. (3) Diarrhea Appears to be improved monitor electrolytes, check Mg+ (4) Elevated troponin I level Appreciate cardiology input. Attributed to dehydration and REA. (5) Pjhuh-ls-ryoipdo kidney injury Monitor renal function nephrology consult Avoid nephrotoxic meds, lisinopril discontinued (6) Chronic anticoagulation Secondary to paroxysmal atrial fibrillation. Currently held in anticipation of surgery. (7) DM type 2 (diabetes mellitus, type 2) In light of renal function and decreased PO intake cover with ISS only Accucheks ACHS (8) Dyslipidemia Continue atorvastatin (9) H/O: CVA (cerebrovascular accident) Left sided deficits Chronic and stable (10) HTN (hypertension) Monitor BP Resume home meds as appropriate Lisinopril held in light of REA (11) Obesity (BMI 30.0-34.9) (12) hypomagnesemia IV repletion. (13) hypokalemia IV repletion (14) history of diastolic dysfunction Patient's prior echo revealed a preserved ejection fraction but evidence of diastolic dysfunction Patient's BNP went from [phone] with fluid resuscitation. Fluids discontinued per recommendation of cardiology GI prophylaxis - Famotidine DVT Prophylaxis - patient on chronic anticoagulation, SCDs applied, the Eliquis is being held
[2020-04-21] MEDS: Atorvastatin Calcium 20 MG TAB PO SCH (20:25)
[2020-04-21] MEDS: Melatonin 3 MG TAB PO SCH (20:25)
[2020-04-22] MEDS: Piperacillin/Tazobactam 2.25 GM in Sodium Chloride 0.9% 100 ML IVPB SCH ×6 (01:44→20:51)
[2020-04-22 06:33] LABS: Hemoglobin 9.6 g/dL (14.0-18.0); Mean Corpuscular HGB CONC 33.4 g/dL (32.0-36.0); Mean Corpuscular Hemoglobin 31.1 pg (27.0-31.0); Mean Corpuscular Volume 93.3 fL (78.0-98.0); Platelet Count 122 thou/uL (130-400); RBC Distribution Width 11.7 % (11.5-14.5); Red Blood Cell (RBC) Count 3.07 mill/uL (4.70-6.10); White Blood Cell (WBC) Count 11.8 thou/uL (4.8-10.8)
[2020-04-22 06:40] LABS: Anion Gap 11 mmol/L (10-20); BUN (Urea Nitrogen) 28 mg/dL (8.4-25.7); Calc. Creatinine Clearance 37 mL/min (70-130); Calcium 8.2 mg/dL (7.8-10.44); Carbon Dioxide 23 mmol/L (23-31); Chloride 112 mmol/L (98-107); Glucose 127 mg/dL (83-110); Potassium 3.2 mmol/L (3.5-5.1); Sodium 143 mmol/L (136-145)
[2020-04-22 06:41] LABS: ALT (SGPT) 73 U/L (8-55); AST (SGOT) 67 U/L (5-34); Albumin 2.8 g/dL (3.4-4.8); Alkaline Phosphatase 291 U/L (40-110); Bilirubin, Total 0.9 mg/dL (0.2-1.2); Protein, Total 5.8 g/dL (5.8-8.1)
--- NOTE | 2020-04-22 06:57 | CON ---
DATE OF CONSULTATION: 04/21/2020 CONSULTING PHYSICIAN: Kris Castellon MD REASON FOR CONSULTATION: Acute kidney injury on chronic kidney disease. REASON FOR ADMISSION: Abdominal pain. HISTORY OF PRESENT ILLNESS: A 74-year-old male with history of chronic kidney disease, hypertension, diabetes, and obesity, came to the hospital with abdominal pain and was found to have cholecystitis and plan to have surgery. He was started on IV fluids also and Nephrology consulted for perioperative management of his kidney disease. The patient is very lethargic. was at the bedside and is planning for surgery tomorrow. No chest pain or palpitation reported to me. No fever or chills. PAST MEDICAL HISTORY: Positive for obesity, hypertension, DVT, CVA, coronary artery disease, hyperlipidemia, and type 2 diabetes mellitus. PAST SURGICAL HISTORY: Appendectomy, hemorrhoidectomy, and shrapnel removal. HOME MEDICATIONS: Reviewed. ALLERGIES: NO KNOWN DRUG ALLERGIES. SOCIAL HISTORY: No smoking, alcohol, or illicit drugs abuse. FAMILY HISTORY: Positive for heart disease. REVIEW OF SYSTEMS: CONSTITUTIONAL: Negative for weight loss or gain, ability to conduct usual activities. SKIN: Negative for rash, itching. EYES: Negative for double vision, pain. ENT/MOUTH: Negative for nose bleeding, neck stiffness, pain, tenderness. CARDIOVASCULAR: Negative for palpitations, dyspnea on exertion, orthopnea. RESPIRATORY: Negative for shortness of breath, wheezing, cough, hemoptysis, fever or night sweats. GASTROINTESTINAL: Negative for poor appetite, abdominal pain, heartburn, nausea, vomiting, constipation, or diarrhea. GENITOURINARY: Negative for urgency, frequency, dysuria, nocturia. MUSCULOSKELETAL: Negative for pain, swelling. NEUROLOGIC/PSYCHIATRIC: Negative for anxiety, depression. ALLERGY/IMMUNOLOGIC: Negative for skin rash, bleeding tendency. PHYSICAL EXAMINATION: GENERAL: This is a well-built male, in no apparent distress. VITAL SIGNS: Temperature 98.3, pulse 56, respirations 16, blood pressure 129/75. HEENT: Atraumatic, normocephalic. Oral mucosa is moist. NECK: Supple. CV: S1 and S2 MUSCULOSKELETAL: 1+ edema. DERMATOLOGIC: No skin rash. NEUROLOGICAL: Alert and awake. PSYCHIATRIC: Normal mood and affect. LABORATORY DATA: Hemoglobin 9.8. Potassium is 3.2, BUN is 33, and creatinine is 2.12. ASSESSMENT AND PLAN: 1. Acute kidney injury on chronic kidney disease stage 3, most likely secondary to infection and hemodynamic injury. Agree with hydration with close monitor of cardiorespiratory status. We will stop the diuretics for now. Avoid nephrotoxins like GRANT inhibitor or NSAIDs and monitor labs closely. Continue antibiotics. 2. Acute cholecystitis. 3. Edema, controlled. 4. History of hypertension. 5. Hypokalemia. Agree with supplementation. 6. Anemia . 7. Hypoalbuminemia. Monitor labs. Continue hydration. Avoid nephrotoxins. We will stop diuretics and replace potassium cautiously and we will follow. Thank you for the consult. Job ID: [id number]
[2020-04-22 07:35] LABS: Band 16 % (5-11); Lymphocytes 12 % (21-51); MDiff Complete? YES; Monocytes 6 % (0-10); Neutrophil 66 % (42-75); Platelet Morphology Comment Appears Decreased; Polychromasia SLIGHT = 2-3 cells (100X) (0-2/hpf)
[2020-04-22] MEDS: Tamsulosin HCl 0.4 MG CAP PO SCH (08:48)
[2020-04-22] MEDS: Carvedilol 6.25 MG TAB PO SCH ×2 (08:48→20:51)
[2020-04-22] MEDS: Famotidine/PF 20 mg/2ml Vial SLOW IVP SCH (08:48)
[2020-04-22] MEDS: Aspirin 81 mg Enteric Coated Tablet PO SCH (08:49)
[2020-04-22] MEDS ORDERED: Rocuronium Bromide 10 MG/ML (10ML VIAL) ONE (09:50)
[2020-04-22] MEDS ORDERED: Lidocaine 1% PF 5 ML VIAL ONE (09:50)
[2020-04-22] MEDS ORDERED: PROPOFOL 200 MG/20 ML VIAL ONE (09:50)
[2020-04-22] MEDS ORDERED: Ondansetron PF 4 MG/2 ML Vial ONE (09:50)
[2020-04-22] MEDS ORDERED: Glycopyrrolate 0.2 MG/ML 5 ML SYRINGE ONE (09:50)
[2020-04-22] MEDS ORDERED: EPINEPHrine 1 MG/ML AMP ONE (10:44)
[2020-04-22] MEDS ORDERED: Bupivacaine PF 0.5% 30 ML VIAL ONE (10:44)
[2020-04-22] MEDS ORDERED: Phenylephrine 10 MG/ML VIAL ONE (11:02)
[2020-04-22] MEDS ORDERED: Fentanyl 100 MCG/2 ML VIAL ONE (11:02)
[2020-04-22] MEDS ORDERED: Sodium Chloride 0.9% 0 ML ONE (12:49)
[2020-04-22] MEDS ORDERED: Ondansetron HCl/PF 4 MG/2 ML Vial IVP PRN (13:06)
[2020-04-22] MEDS ORDERED: Promethazine HCl 25 MG/ML VIAL IM PRN (13:06)
[2020-04-22] MEDS ORDERED: Promethazine HCl 25 MG/ML VIAL SLOW IVP PRN (13:06)
[2020-04-22] MEDS ORDERED: Calcium Chloride 1 GM/10 ML Abboject SYRINGE ONE (13:09)
[2020-04-22] MEDS ORDERED: Potassium Chloride 20 MEQ TAB PO SCH (13:30)
--- NOTE | 2020-04-22 13:33 | RAD ---
Portable frontal chest radiograph: 04/22/2020 COMPARISON: 04/21/2020 HISTORY: Central line placement FINDINGS: There is a left subclavian vascular catheter with distal tip overlying the region of the pr oximal right atrium/cavoatrial junction. There is pulmonary vascular prominence. There is no lobar consolidation or alveolar edema. No pneumothorax is seen. Heart and mediastinal contours are stable. IMPRESSION: Left vascular catheter. No pneumothorax seen.
[2020-04-22 13:51] LABS: Hemoglobin 8.3 g/dL (14.0-18.0)
--- NOTE | 2020-04-22 14:38 | OP ---
DATE OF PROCEDURE: 04/22/2020 PREOPERATIVE DIAGNOSES: 1. Acute cholecystitis with cholelithiasis. 2. Chronic anticoagulation. 3. Deconditioning. 4. Poor IV access. 5. Chronic kidney disease. POSTOPERATIVE DIAGNOSES: 1. Acute cholecystitis with cholelithiasis. 2. Chronic anticoagulation. 3. Deconditioning. 4. Poor IV access. 5. Chronic kidney disease. PROCEDURES PERFORMED: 1. Laparoscopic video cholecystectomy. 2. Left subclavian vein central line. ANESTHESIA: General, local with 0.5% Marcaine 30 mL with epinephrine, total volume used. FINDINGS: Note, liver bleeding. Hemostasis gained with FloSeal and Tyra, and drain left in place. The patient has severe cholecystitis with purulent material in the gallbladder. He will be hospitalized overnight and observed. DESCRIPTION OF PROCEDURE: The patient was taken to the operating room where under general anesthesia, abdomen was clipped of hair, prepared with ChloraPrep, and draped in routine fashion. Local anesthetic infiltrated in the skin and subcutaneous tissue about each port site. Because of his previous midline incision, a right lateral subcostal incision was made and pneumoperitoneum to 15 mmHg was obtained with a Veress needle, replaced with a 5 port, video laparoscope inserted. Right subxiphoid incision was made and 11 port placed. Right lateral subcostal incision made and a 5 port placed. There were adhesions in the lower midline. Thus, a right lower quadrant incision was made, and under direct visualization, a 5-mm trocar catheter placed in adhesion free area. Video laparoscope placed in this port. There were some filmy adhesions from the liver taken down. There was severe inflammation of the gallbladder adjacent to omentum. Mesentery dissected free, freeing the fundus. As I grasped it, it tore. It was very friable. I evacuated the contents. There was purulent material. Fundus was grasped and reflected cephalad as much as possible. The liver was not too forgiving as far as mobility. Careful dissection carried out through inflammatory process, identifying the infundibulum, dissecting the cystic duct and artery. Critical view obtained. Cystic artery and duct doubly clipped proximally and divided. Gallbladder dissected free from inflammatory attachments to the liver bed, placing in the endobag and removing it. The area was thoroughly irrigated hemostasis turned and good hemostasis obtained. FloSeal was used around the jacquie hepatis and Tyra around the liver bed and liver edge. A #19 gold JERRY drain was placed and secured with 3-0 nylon suture, brought out through a lateral trocar site. Sterile dressings applied. Drain tailored to length. Good hemostasis noted. Subxiphoid fascia approximated with [id number] UR 0 Vicryl suture. Good hemostasis. Irrigant and pneumoperitoneum evacuated. All skin incisions were approximated with interrupted subdermal 4-0 Monocryl. [place] glue applied. Left subclavian vein triple-lumen catheter was placed. Paraclavicular area was prepared with ChloraPrep and draped in routine fashion. I donned new gowns and gloves. Infraclavicular approach used to place a subclavian triple-lumen catheter using Seldinger technique, removing the J-wire, securing the catheter with 3-0 silk. Sterile dressing applied. Each port aspirated blood and flushed with saline solution. Job ID: [id number]
[2020-04-22] MEDS: Potassium Chloride 20 MEQ in Lactated Ringer's 1,000 ML IV SCH (15:25)
--- NOTE | 2020-04-22 18:54 | PRG ---
DATE OF SERVICE: 04/22/2020 SUBJECTIVE: Patient was seen and examined at bedside and overnight events noted. Patient denies any shortness of breath or chest pain or palpitation. No history of nausea or vomiting or diarrhea or fever or chills or cramps. OBJECTIVE: GENERAL: This is a well-built male, in no apparent distress. VITAL SIGNS: Temperature 98.5. Heart rate 71. Respiratory rate 20. Blood pressure 109/48. HEENT: Atraumatic, normocephalic. Oral mucosa is moist NECK: Supple. CARDIOVASCULAR: S1, S2 heard. Rate and rhythm regular. RESPIRATORY: Clear to auscultation. GASTROINTESTINAL: Abdomen is soft. MUSCULOSKELETAL: No tenderness. No edema. DERMATOLOGIC: No skin rash. NEUROLOGIC: Alert and awake and oriented X3. No focal neurologic deficits. Moving all the extremities. PSYCHIATRIC: Mood and affect normal. LABORATORY DATA: Potassium 3.2, BUN is 28, creatinine is 2.2. ASSESSMENT AND PLAN: 1. Acute kidney injury on chronic kidney disease, stage 3. We will continue to monitor. Avoid nephrotoxins. Not able to tolerate much IV fluids, given his cardiac status. 2. Cardiorenal syndrome. 3. Edema. 4. History of hypertension. 5. Hypokalemia. 6. Anemia. 7. Hypoalbuminemia. 8. Acute cholecystitis. Continue supportive care. Hold diuretics and other nephrotoxins, and we will follow. Recommend caution with potassium given the chronic kidney disease. We will continue to monitor. Job ID: [id number]
[2020-04-22 19:22] LABS: Hemoglobin 9.5 g/dL (14.0-18.0); Mean Corpuscular HGB CONC 32.5 g/dL (32.0-36.0); Mean Corpuscular Hemoglobin 30.6 pg (27.0-31.0); Mean Corpuscular Volume 94.2 fL (78.0-98.0); Mean Platelet Volume 9.6 fL (7.4-10.4); Platelet Count 132 thou/uL (130-400); RBC Distribution Width 11.8 % (11.5-14.5); White Blood Cell (WBC) Count 8.3 thou/uL (4.8-10.8)
[2020-04-22 19:38] LABS: Band 22 % (5-11); Dohle Bodies SLIGHT; Eosinophils 1 % (0-10); Lymphocytes 8 % (21-51); MDiff Complete? YES; Metamyelocyte 1 % (0-0); Monocytes 6 % (0-10); Neutrophil 62 % (42-75); Platelet Morphology Comment Appears Adequate; Polychromasia SLIGHT = 2-3 cells (100X) (0-2/hpf); Vacuoles SLIGHT
[2020-04-22] MEDS: Acetaminophen 500 MG TAB PO PRN (20:50)
[2020-04-22] MEDS: Enoxaparin Sodium 30 MG/0.3 ML SYRINGE SC SCH (20:51)
[2020-04-22] MEDS: Melatonin 3 MG TAB PO SCH (20:51)
[2020-04-22] MEDS: Atorvastatin Calcium 20 MG TAB PO SCH (20:51)
--- NOTE | 2020-04-23 00:11 | PDOC.EVN ---
Event Note - Event Note Event Note: Notified by RN, patient hypotensive 80s/40s despite increasing IV fluids ordered by Dr. Castellon from 100 mLs/hr to 150 mLs/hr. Patient with cardiorenal syndrome with diuretics on hold and with recommendations to limit IV fluids by Dr. Martinez(Nephrology) due to cardiac status. I have asked to obtain a manual BP, labs ordered, and will give dose of Midrodine to help improve BP and titrate fluids back down.
[2020-04-23] MEDS ORDERED: Midodrine HCl 5 MG TAB PO SCH (00:30)
[2020-04-23 00:33] LABS: Mean Corpuscular HGB CONC 32.6 g/dL (32.0-36.0); Mean Corpuscular Hemoglobin 30.6 pg (27.0-31.0); Mean Corpuscular Volume 93.9 fL (78.0-98.0); Mean Platelet Volume 9.6 fL (7.4-10.4); Platelet Count 139 thou/uL (130-400); RBC Distribution Width 11.8 % (11.5-14.5); Red Blood Cell (RBC) Count 2.95 mill/uL (4.70-6.10); White Blood Cell (WBC) Count 8.8 thou/uL (4.8-10.8)
[2020-04-23] MEDS: Potassium Chloride 20 MEQ in Lactated Ringer's 1,000 ML IV SCH ×3 (00:47→18:22)
[2020-04-23 00:48] LABS: Lactic Acid 0.9 mmol/L (0.5-2.2)
[2020-04-23 00:50] LABS: ALT (SGPT) 67 U/L (8-55); AST (SGOT) 65 U/L (5-34); Albumin 2.3 g/dL (3.4-4.8); Alkaline Phosphatase 177 U/L (40-110); Anion Gap 14 mmol/L (10-20); BUN (Urea Nitrogen) 27 mg/dL (8.4-25.7); Bilirubin, Total 0.9 mg/dL (0.2-1.2); Calc. Creatinine Clearance 36 mL/min (70-130); Calcium 7.9 mg/dL (7.8-10.44); Carbon Dioxide 19 mmol/L (23-31); Chloride 114 mmol/L (98-107); Globulin 2.6 g/dL (2.4-3.5); Glucose 127 mg/dL (83-110); Magnesium 1.5 mg/dL (1.6-2.6); Potassium 3.6 mmol/L (3.5-5.1); Protein, Total 4.9 g/dL (5.8-8.1); Sodium 143 mmol/L (136-145)
[2020-04-23 01:08] LABS: Band 28 % (5-11); Lymphocytes 3 % (21-51); MDiff Complete? YES; Monocytes 9 % (0-10); Neutrophil 60 % (42-75); Platelet Morphology Comment Appears Adequate
[2020-04-23] MEDS ORDERED: Magnesium 2 GM/50 ML 2 GM in Premix Bag 1 BAG IVPB SCH (01:30)
[2020-04-23] MEDS: Piperacillin/Tazobactam 2.25 GM in Sodium Chloride 0.9% 100 ML IVPB SCH ×3 (04:53→16:06)
[2020-04-23 06:11] LABS: ALT (SGPT) 66 U/L (8-55); AST (SGOT) 62 U/L (5-34); Albumin 2.3 g/dL (3.4-4.8); Alkaline Phosphatase 162 U/L (40-110); Anion Gap 13 mmol/L (10-20); BUN (Urea Nitrogen) 29 mg/dL (8.4-25.7); Bilirubin, Total 0.8 mg/dL (0.2-1.2); Calc. Creatinine Clearance 35 mL/min (70-130); Calcium 7.7 mg/dL (7.8-10.44); Carbon Dioxide 22 mmol/L (23-31); Chloride 114 mmol/L (98-107); Globulin 2.6 g/dL (2.4-3.5); Glucose 131 mg/dL (83-110); Potassium 3.6 mmol/L (3.5-5.1); Protein, Total 4.9 g/dL (5.8-8.1); Sodium 145 mmol/L (136-145)
[2020-04-23 06:44] LABS: Band 23 % (5-11); Hemoglobin 8.5 g/dL (14.0-18.0); Lymphocytes 18 % (21-51); MDiff Complete? YES; Mean Corpuscular HGB CONC 32.4 g/dL (32.0-36.0); Mean Corpuscular Hemoglobin 30.7 pg (27.0-31.0); Mean Corpuscular Volume 94.7 fL (78.0-98.0); Mean Platelet Volume 9.7 fL (7.4-10.4); Monocytes 11 % (0-10); Neutrophil 48 % (42-75); Platelet Count 137 thou/uL (130-400); Platelet Morphology Comment Appears Adequate; RBC Distribution Width 11.7 % (11.5-14.5); Red Blood Cell (RBC) Count 2.76 mill/uL (4.70-6.10); White Blood Cell (WBC) Count 9.3 thou/uL (4.8-10.8)
[2020-04-23] MEDS ORDERED: Albumin 25% 25 GM/100 ML BOT IVPB SCH (07:19)
--- NOTE | 2020-04-23 07:24 | PDOC.HOSPP ---
- Subjective Encounter Date: 04/22/20 Subjective: Patient was seen in the evening. He was postop from cholecystectomy. Case been discussed with Dr. Castellon and noted that the patient had fairly significant gallbladder disease. He was still somewhat somnolent from anesthesia. - Objective Vital Signs & Weight: Vital Signs (12 hours) Temp Pulse Resp BP BP Pulse Ox 04/23/20 04:55 98.2 F 70 18 99/59 L 92 L 04/23/20 04:08 96/57 L 04/23/20 02:30 94/56 L 04/23/20 01:41 94/40 L 04/23/20 01:10 90/37 L 04/23/20 01:08 90/37 L 04/23/20 00:30 89/38 L 04/22/20 23:53 98.7 F 70 18 91 L 04/22/20 20:51 93/54 L 04/22/20 20:50 99.9 F H 71 18 93/54 L 91 L Weight Weight 210 lb 14.4 oz I&O: 04/22/20 04/23/20 04/24/20 06:59 06:59 06:59 Intake Total 840 990 Output Total 135 Balance 840 855 Result Diagrams: 04/23/20 05:38 04/23/20 05:38 Additional Labs: Accuchecks 04/23/20 04/22/20 00:25 18:39 POC Glucose 119 H 106 H Hospitalist ROS - Medication Medications: Active Medications Generic Name Dose Route Start Last Admin Trade Name Freq PRN Reason Stop Dose Admin Acetaminophen 1,000 mg 04/21/20 15:10 04/22/20 20:50 Acetaminophen 500 Mg Tab PO 1,000 mg Q6H PRN Administration Moderate to Severe Pain (6-10) Aspirin 81 mg 04/21/20 09:00 04/22/20 08:49 Aspirin 81 Mg Enteric Coated Tablet PO Not Given DAILY KATHYA Atorvastatin Calcium 20 mg 04/21/20 21:00 04/22/20 20:51 Atorvastatin Calcium 20 Mg Tab PO 20 mg HS KATHYA Administration Carvedilol 6.25 mg 04/21/20 21:00 04/22/20 20:51 Carvedilol 6.25 Mg Tab PO Not Given BID KATHYA Enoxaparin Sodium 30 mg 04/22/20 21:00 04/22/20 20:51 Enoxaparin Sodium 30 Mg/0.3 Ml Syringe SC 30 mg 2100 KATHYA Administration Famotidine 20 mg 04/21/20 09:00 04/22/20 08:48 Famotidine/Pf 20 Mg/2ml Vial SLOW IVP 20 mg DAILY KATHYA Administration Potassium Chloride 20 meq/ 1,010 mls @ 100 mls/hr 04/22/20 13:30 04/23/20 00:47 Lactated Ringer's IV Not Given .Q10H6M KATHYA Piperacillin Sod/Tazobactam 100 mls @ 200 mls/hr 04/22/20 16:00 04/23/20 04:53 Sod 2.25 gm/ Sodium Chloride IVPB 100 mls 0400,1000,1600,2200 KATHYA Administration Isosorbide Mononitrate 30 mg 04/21/20 09:00 04/22/20 08:48 Isosorbide Mononitrate Er 30 Mg Tab PO 30 mg DAILY KATHYA Administration Melatonin 3 mg 04/20/20 21:00 04/22/20 20:51 Melatonin 3 Mg Tab PO 3 mg HS KATHYA Administration Ondansetron HCl 4 mg 04/20/20 15:21 04/21/20 15:00 Ondansetron Pf 4 Mg/2 Ml Vial IVP 4 mg Q6H PRN Administration Nausea Tamsulosin HCl 0.4 mg 04/21/20 09:00 04/22/20 08:48 Tamsulosin Hcl 0.4 Mg Cap PO 0.4 mg DAILY KATHYA Administration Hospitalist Exam Vitals: Vital Signs (12 hours) Temp Pulse Resp BP BP Pulse Ox 04/23/20 04:55 98.2 F 70 18 99/59 L 92 L 04/23/20 04:08 96/57 L 04/23/20 02:30 94/56 L 04/23/20 01:41 94/40 L 04/23/20 01:10 90/37 L 04/23/20 01:08 90/37 L 04/23/20 00:30 89/38 L 04/22/20 23:53 98.7 F 70 18 91 L 04/22/20 20:51 93/54 L 04/22/20 20:50 99.9 F H 71 18 93/54 L 91 L Weight Weight 210 lb 14.4 oz Heart: RRR, no murmur Respiratory: CTAB, no wheezes, no rales, no ronchi Gastrointestinal: soft, non-distended, diminished bowl sounds Extremities - other findings: Trace edema Hosp A/P (1) Acute cholecystitis Code(s): K81.0 - ACUTE CHOLECYSTITIS Status: Acute (2) Abdominal pain Code(s): R10.9 - UNSPECIFIED ABDOMINAL PAIN Status: Acute (3) Obgrr-pj-yhbtool kidney injury Code(s): N17.9 - ACUTE KIDNEY FAILURE, UNSPECIFIED; N18.9 - CHRONIC KIDNEY DI SEASE, UNSPECIFIED Status: Acute (4) N&V (nausea and vomiting) Code(s): R11.2 - NAUSEA WITH VOMITING, UNSPECIFIED Status: Acute (5) Hemiplegia of left nondominant side as late effect of cerebral infarction Code(s): I69.354 - HEMIPLGA FOLLOWING CEREBRAL INFRC AFFECTING LEFT NONDOM SIDE Status: Acute (6) Paroxysmal atrial fibrillation Code(s): I48.0 - PAROXYSMAL ATRIAL FIBRILLATION Status: Acute (7) DM type 2 (diabetes mellitus, type 2) Status: Chronic Qualifiers: Diabetes mellitus shelter insulin use: without joint terminal attack controller use Diabetes mellitus complication status: with neurologic complications Diabetes mellitus complication detail: with polyneuropathy Qualified Code(s): E11.42 - Type 2 diabetes mellitus with diabetic polyneuropathy (8) Dyslipidemia Code(s): E78.5 - HYPERLIPIDEMIA, UNSPECIFIED Status: Chronic (9) H/O: CVA (cerebrovascular accident) Code(s): Z86.73 - PRSNL HX OF TIA (TIA), AND CEREB INFRC W/O RESID DEFICITS Status: Chronic (10) HTN (hypertension) Code(s): I10 - ESSENTIAL (PRIMARY) HYPERTENSION Status: Chronic Qualifiers: Hypertension type: essential hypertension Qualified Code(s): I10 - Essential (primary) hypertension (11) Obesity (BMI 30.0-34.9) Code(s): E66.9 - OBESITY, UNSPECIFIED Status: Chronic (12) Dehydration Code(s): E86.0 - DEHYDRATION Status: Acute (13) History of diastolic dysfunction Code(s): Z86.79 - PERSONAL HISTORY OF OTHER DISEASES OF THE CIRCULATORY SYSTEM Status: Acute (14) Hypotension Status: Acute - Plan Acute cholecystitis Patient presented with nausea, vomiting, abdominal pain. CT scan of the abdomen consistent with inflammation of the gallbladder. Ultrasound of the gallbladder appeared to be consistent with inflammatory changes. Admitted to general surgery. Initial LFTs were normal. Very subtle increase on repeat Continue IV antibiotics, Zosyn, renal dosing. Cholecystectomy performed on 04/22/2020. Patient had significant disease of the gallbladder. N&V (nausea and vomiting) Secondary to cholecystitis. Continue Zofran as needed. Resolved. Diarrhea Appears to be improved Elevated troponin I level Appreciate cardiology input. Attributed to dehydration and REA. Meadc-tu-guurtgn kidney injury Monitor renal function nephrology consult Avoid nephrotoxic meds, lisinopril discontinued Difficult fluid management situation given the patient's significant diastolic d ysfunction and elevated BNP. Chronic anticoagulation Secondary to paroxysmal atrial fibrillation. Eliquis was held due to surgery. DM type 2 (diabetes mellitus, type 2) In light of renal function and decreased PO intake cover with ISS only Accucheks ACHS Dyslipidemia Continue atorvastatin H/O: CVA (cerebrovascular accident) Left sided deficits Chronic and stable HTN (hypertension) Monitor BP Resume home meds as appropriate Lisinopril held in light of REA Obesity (BMI 30.0-34.9) hypomagnesemia IV repletion. hypokalemia IV repletion diastolic dysfunction Patient's prior echo revealed a preserved ejection fraction but evidence of diastolic dysfunction Patient's BNP has continually climbed as a result of necessary fluid resuscitation. GI prophylaxis - Famotidine DVT Prophylaxis - patient on chronic anticoagulation, SCDs applied, the Eliquis is being held
[2020-04-23] MEDS: Aspirin 81 mg Enteric Coated Tablet PO SCH (09:13)
[2020-04-23] MEDS: Tamsulosin HCl 0.4 MG CAP PO SCH (09:13)
[2020-04-23] MEDS: Famotidine/PF 20 mg/2ml Vial SLOW IVP SCH (09:13)
[2020-04-23] MEDS: Carvedilol 6.25 MG TAB PO SCH ×2 (09:14→20:46)
--- NOTE | 2020-04-23 13:47 | PDOC.HOSPP ---
- Subjective Encounter Date: 04/23/20 Subjective: Patient reported feeling some generalized abdominal tenderness today. He had no other specific complaints. - Objective Vital Signs & Weight: Vital Signs (12 hours) Temp Pulse Resp BP Pulse Ox 04/23/20 11:25 98.2 F 64 14 132/69 93 L 04/23/20 07:20 98.1 F 64 14 106/63 94 L 04/23/20 04:55 98.2 F 70 18 99/59 L 92 L 04/23/20 04:08 96/57 L 04/23/20 02:30 94/56 L Weight Weight 210 lb 14.4 oz I&O: 04/22/20 04/23/20 04/24/20 06:59 06:59 06:59 Intake Total 840 990 Output Total 135 Balance 840 855 Result Diagrams: 04/23/20 05:38 04/23/20 05:38 Additional Labs: Accuchecks 04/23/20 04/23/20 04/22/20 11:26 00:25 18:39 POC Glucose 121 H 119 H 106 H Hospitalist ROS - Medication Medications: Active Medications Generic Name Dose Route Start Last Admin Trade Name Freq PRN Reason Stop Dose Admin Acetaminophen 1,000 mg 04/21/20 15:10 04/22/20 20:50 Acetaminophen 500 Mg Tab PO 1,000 mg Q6H PRN Administration Moderate to Severe Pain (6-10) Aspirin 81 mg 04/21/20 09:00 04/23/20 09:13 Aspirin 81 Mg Enteric Coated Tablet PO 81 mg DAILY KATHYA Administration Atorvastatin Calcium 20 mg 04/21/20 21:00 04/22/20 20:51 Atorvastatin Calcium 20 Mg Tab PO 20 mg HS KATHYA Administration Carvedilol 6.25 mg 04/21/20 21:00 04/23/20 09:14 Carvedilol 6.25 Mg Tab PO Not Given BID KATHYA Enoxaparin Sodium 30 mg 04/22/20 21:00 04/22/20 20:51 Enoxaparin Sodium 30 Mg/0.3 Ml Syringe SC 30 mg 2100 KATHYA Administration Famotidine 20 mg 04/21/20 09:00 04/23/20 09:13 Famotidine/Pf 20 Mg/2ml Vial SLOW IVP 20 mg DAILY KATHYA Administration Potassium Chloride 20 meq/ 1,010 mls @ 100 mls/hr 04/22/20 13:30 04/23/20 11:50 Lactated Ringer's IV 1,010 mls .Q10H6M KATHYA Administration Piperacillin Sod/Tazobactam 100 mls @ 200 mls/hr 04/22/20 16:00 04/23/20 09:13 Sod 2.25 gm/ Sodium Chloride IVPB 100 mls 0400,1000,1600,2200 KATHYA Administration Isosorbide Mononitrate 30 mg 04/21/20 09:00 04/23/20 09:14 Isosorbide Mononitrate Er 30 Mg Tab PO Not Given DAILY KATHYA Melatonin 3 mg 04/20/20 21:00 04/22/20 20:51 Melatonin 3 Mg Tab PO 3 mg HS KATHYA Administration Ondansetron HCl 4 mg 04/20/20 15:21 04/21/20 15:00 Ondansetron Pf 4 Mg/2 Ml Vial IVP 4 mg Q6H PRN Administration Nausea Tamsulosin HCl 0.4 mg 04/21/20 09:00 04/23/20 09:13 Tamsulosin Hcl 0.4 Mg Cap PO 0.4 mg DAILY KATHYA Administration Hospitalist Exam Vitals: Vital Signs (12 hours) Temp Pulse Resp BP Pulse Ox 04/23/20 11:25 98.2 F 64 14 132/69 93 L 04/23/20 07:20 98.1 F 64 14 106/63 94 L 04/23/20 04:55 98.2 F 70 18 99/59 L 92 L 04/23/20 04:08 96/57 L 04/23/20 02:30 94/56 L Weight Weight 210 lb 14.4 oz General Appearance: NAD General - other findings: Patient remains at his baseline of being modestly ve rbal. Heart: RRR, no murmur, no gallops, no rubs Respiratory: CTAB, no wheezes, no rales, no ronchi Gastrointestinal: soft, tender to palpation, diminished bowl sounds Extremities: no cyanosis, no clubbing, no edema Neurological - other findings: Left hemiplegia Psychiatric: flat affect Hosp A/P (1) Acute cholecystitis Code(s): K81.0 - ACUTE CHOLECYSTITIS Status: Acute (2) Abdominal pain Code(s): R10.9 - UNSPECIFIED ABDOMINAL PAIN Status: Acute (3) Dudlj-mb-hnlfyzm kidney injury Code(s): N17.9 - ACUTE KIDNEY FAILURE, UNSPECIFIED; N18.9 - CHRONIC KIDNEY DISEASE, UNSPECIFIED Status: Acute (4) N&V (nausea and vomiting) Code(s): R11.2 - NAUSEA WITH VOMITING, UNSPECIFIED Status: Acute (5) Paroxysmal atrial fibrillation Code(s): I48.0 - PAROXYSMAL ATRIAL FIBRILLATION Status: Acute (6) DM type 2 (diabetes mellitus, type 2) Status: Chronic Qualifiers: Diabetes mellitus prison insulin use: without prison use Diabetes mellitus complication status: with neurologic complications Diabetes mellitus complication detail: with polyneuropathy Qualified Code(s): E11.42 - Type 2 diabetes mellitus with diabetic polyneuropathy (7) Dyslipidemia Code(s): E78.5 - HYPERLIPIDEMIA, UNSPECIFIED Status: Chronic (8) H/O: CVA (cerebrovascular accident) Code(s): Z86.73 - PRSNL HX OF TIA (TIA), AND CEREB INFRC W/O RESID DEFICITS Status: Chronic (9) HTN (hypertension) Code(s): I10 - ESSENTIAL (PRIMARY) HYPERTENSION Status: Chronic Qualifiers: Hypertension type: essential hypertension Qualified Code(s): I10 - Essential (primary) hypertension (10) Obesity (BMI 30.0-34.9) Code(s): E66.9 - OBESITY, UNSPECIFIED Status: Chronic (11) Dehydration Code(s): E86.0 - DEHYDRATION Status: Acute (12) History of diastolic dysfunction Code(s): Z86.79 - PERSONAL HISTORY OF OTHER DISEASES OF THE CIRCULATORY SYSTEM Status: Acute (13) Hypotension Status: Acute (14) Urinary retention Code(s): R33.9 - RETENTION OF URINE, UNSPECIFIED Status: Acute (15) Hemiplegia of left nondominant side as late effect of cerebral infarction Code(s): I69.354 - HEMIPLGA FOLLOWING CEREBRAL INFRC AFFECTING LEFT NONDOM SIDE Status: Acute - Plan Acute cholecystitis Patient presented with nausea, vomiting, abdominal pain. CT scan of the abdomen consistent with inflammation of the gallbladder. Ultrasound of the gallbladder appeared to be consistent with inflammatory changes. Admitted to general surgery. Initial LFTs were normal. Very subtle increase on repeat Continue IV antibiotics, Zosyn, renal dosing. Cholecystectomy performed on 04/22/2020. Patient had significant disease of the gallbladder. Hypotension: Overnight the patient systolic blood pressure was low around 90. He received additional IV fluids and a dose of midodrine. He did not significantly respond to the midodrine although his blood pressure did not decrease further. He likely has some third spacing and appears to be a bit more anemic. Albumin given. Cardiology and nephrology notified. Urinary retention: Patient had not voided through the night. Patient's bladder scan revealed a bladder volume of around 700 cc. Velasquez catheter placed to gravity. Patient is on tamsulosin routinely and likely has underlying BPH. N&V (nausea and vomiting) Secondary to cholecystitis. Continue Zofran as needed. Resolved. Diarrhea Appears to be improved Elevated troponin I level Appreciate cardiology input. Attributed to dehydration and REA. Fpexx-xa-urtivxk kidney injury Monitor renal function nephrology consult Avoid nephrotoxic meds, lisinopril discontinued Difficult fluid management situation given the patient's significant diastolic dysfunction and elevated BNP. Chronic anticoagulation Secondary to paroxysmal atrial fibrillation. Eliquis was held due to surgery. DM type 2 (diabetes mellitus, type 2) In light of renal function and decreased PO intake cover with ISS only Accucheks ACHS Dyslipidemia Continue atorvastatin H/O: CVA (cerebrovascular accident) Left sided deficits Chronic and stable HTN (hypertension) Monitor BP Resume home meds as appropriate Lisinopril held in light of REA and hypotension Obesity (BMI 30.0-34.9) hypomagnesemia IV repletion. hypokalemia IV repletion diastolic dysfunction Patient's prior echo revealed a preserved ejection fraction but evidence of diastolic dysfunction Patient's BNP has continually climbed as a result of necessary fluid resuscitation. Typically on diuretics at home but these have been held. Cardiology following. GI prophylaxis - Famotidine DVT Prophylaxis - patient on chronic anticoagulation, SCDs applied, the Eliquis is being held
--- NOTE | 2020-04-23 15:52 | PRG ---
DATE OF SERVICE: 04/23/2020 SUBJECTIVE: Patient was seen and examined at bedside and overnight events noted. Patient denies any shortness of breath or chest pain or palpitation. No history of nausea or vomiting or diarrhea or fever or chills or cramps. OBJECTIVE: GENERAL: This is a well-built male, in no apparent distress. VITAL SIGNS: Temperature 98.2. Heart rate 64. Respiratory rate 14. Blood pressure 132/69. HEENT: Atraumatic, normocephalic. Oral mucosa is moist NECK: Supple. CARDIOVASCULAR: S1, S2 heard. Rate and rhythm regular. RESPIRATORY: Clear to auscultation. GASTROINTESTINAL: Abdomen is soft. MUSCULOSKELETAL: No tenderness. No edema. DERMATOLOGIC: No skin rash. NEUROLOGIC: Alert and awake and oriented X3. No focal neurologic deficits. Moving all the extremities. PSYCHIATRIC: Mood and affect normal. LABORATORY DATA: Potassium 3.6, BUN is 29, creatinine is 2.4. ASSESSMENT AND PLAN: 1. Acute kidney injury on chronic kidney disease, stage 3. Labs are stable. The patient was having urinary retention status post Velasquez. It should show some improvement. Blood pressure was also low and is better now. 2. Urinary retention. Agree with Ron. 3. Cardiorenal syndrome. 4. History of hypertension. 5. Hypokalemia. 6. Acute cholecystitis. Continue supportive care. Avoid nephrotoxins. We will monitor labs. Agree with Ron for now. Job ID: [id number]
[2020-04-23] MEDS: Acetaminophen 500 MG TAB PO PRN (16:05)
--- NOTE | 2020-04-23 17:24 | PRG ---
DATE OF SERVICE: 04/23/2020 SUBJECTIVE: Andrae Werner today is doing well, 1 day status post laparoscopic cholecystectomy. He has severe cholecystitis. Temperature 98.4 degrees, pulse 69, blood pressure 145/73. He states he is having less pain than preoperatively. Feels much better. He is tolerating liquids well, progressing to a regular diet. His drain is bloody serous, but no evidence of bile leak or purulence. 135 mL over 24 hours. This morning, his white count is 9, hemoglobin 8.5. Sodium 145, potassium 3.6, chloride 114, BUN 29, creatinine 2.46, GFR 26. His liver function tests revealed bilirubin normal. AST, ALT, alkaline phosphatase slightly elevated. BNP 647. OBJECTIVE: LUNGS: Clear to auscultation. No rales. CARDIAC: Regular rate and rhythm without murmur or gallop. ABDOMEN: Soft. Surgical wounds look good. Drain as described. ASSESSMENT AND PLAN: 1. Status post cholecystectomy, laparoscopic, for severe cholecystitis. Continue antibiotics, but change to oral. We will send to his pharmacy, Levaquin 500 a day for 5 days. 2. Diastolic dysfunction, followed by the hospitalist and Dr. Barber. 3. Chronic kidney disease with acute kidney injury due to dehydration, stable, followed by the hospitalist and Dr. Martinez. 4. Deconditioning. Home health has been ordered with home therapy. The patient's mobility is not good enough to be discharged home today. He should be able to go home over the weekend or early next week. 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 Job ID: [id number]
[2020-04-23] MEDS: Enoxaparin Sodium 30 MG/0.3 ML SYRINGE SC SCH (20:43)
[2020-04-23] MEDS: Atorvastatin Calcium 20 MG TAB PO SCH (20:44)
[2020-04-23] MEDS: Melatonin 3 MG TAB PO SCH (20:44)
[2020-04-23] MEDS: Gabapentin 300 MG CAP PO SCH (20:44)
[2020-04-23] MEDS: Amoxicillin/Potassium Clav 500 MG TAB PO SCH (20:47)
[2020-04-23] MEDS ORDERED: Carvedilol 6.25 MG TAB PO SCH (21:00)
--- NOTE | 2020-04-23 23:36 | RAD ---
RADIOGRAPH CHEST 1 VIEW: DATE: 04/23/2020 TIME: 11:17 PM HISTORY: 74-year-old male "choking" COMPARISON: 04/22/2020 FINDINGS: Left subclavian central venous catheter again noted with distal tip overlying lower SVC. Greater haziness of bilateral lung bases, now with silhouetting of bilateral hemidiaphragms. Hypoinflated lungs. No pneumothorax. IMPRESSION: nonspecific changes at bilateral lung bases, which could represent bilateral pleural effusions.
[2020-04-24] MEDS: Potassium Chloride 20 MEQ in Lactated Ringer's 1,000 ML IV SCH (04:40)
[2020-04-24 04:49] LABS: #Eosinphils 0.2 thou/uL (0.0-0.7); #Monocytes 0.8 thou/uL (0.11-0.59); %Basophils 0.2 % (0.0-1.0); %Eosinophils 2.2 % (0.0-10.0); %Lymphocytes 9.4 % (21.0-51.0); %Monocytes 6.9 % (0.0-10.0); %Neutrophils 81.3 % (42.0-75.0); Hemoglobin 8.3 g/dL (14.0-18.0); Mean Corpuscular HGB CONC 32.2 g/dL (32.0-36.0); Mean Corpuscular Hemoglobin 30.3 pg (27.0-31.0); Mean Corpuscular Volume 94.2 fL (78.0-98.0); Mean Platelet Volume 9.4 fL (7.4-10.4); Platelet Count 168 thou/uL (130-400); RBC Distribution Width 11.8 % (11.5-14.5); Red Blood Cell (RBC) Count 2.73 mill/uL (4.70-6.10)
[2020-04-24] MEDS: Levothyroxine Sodium 25 MCG TAB PO SCH (04:51)
[2020-04-24 05:09] LABS: ALT (SGPT) 57 U/L (8-55); AST (SGOT) 45 U/L (5-34); Albumin 2.7 g/dL (3.4-4.8); Alkaline Phosphatase 129 U/L (40-110); Anion Gap 15 mmol/L (10-20); BUN (Urea Nitrogen) 27 mg/dL (8.4-25.7); Bilirubin, Total 0.7 mg/dL (0.2-1.2); Calc. Creatinine Clearance 36 mL/min (70-130); Calcium 8.1 mg/dL (7.8-10.44); Carbon Dioxide 21 mmol/L (23-31); Chloride 115 mmol/L (98-107); Globulin 2.7 g/dL (2.4-3.5); Glucose 121 mg/dL (83-110); Potassium 3.5 mmol/L (3.5-5.1); Protein, Total 5.4 g/dL (5.8-8.1); Sodium 147 mmol/L (136-145)
--- NOTE | 2020-04-24 07:35 | PDOC.HOSPP ---
- Subjective Encounter Date: 04/24/20 (f/u REA with CKD) Encounter Time: 07:34 Subjective: Pt this morning states he is sleepy, will open eyes briefly, say yes or no but otherwise falls back asleep. Overnight he was noted to have choking with taking pills. CXR reviewed and some non-specific changes at the bases. currently NPO and awaiting speech therapy eval. - Objective Vital Signs & Weight: Vital Signs (12 hours) Temp Pulse Resp BP BP Pulse Ox 04/24/20 04:00 99.0 F 74 14 155/62 H 96 04/24/20 00:00 98.3 F 68 16 169/83 H 97 04/23/20 20:46 158/73 H 04/23/20 20:45 97.5 F L 70 18 158/73 H 93 L Weight Weight 210 lb 14.4 oz I&O: 04/23/20 04/24/20 04/25/20 06:59 06:59 06:59 Intake Total 990 2240 Output Total 135 1080 Balance 855 1160 Result Diagrams: 04/24/20 Unknown 04/24/20 Unknown Additional Labs: Accuchecks 04/24/20 04/23/20 04/23/20 06:08 20:40 15:09 POC Glucose 114 H 121 H 109 H 04/23/20 11:26 POC Glucose 121 H Hospitalist ROS - Medication Medications: Active Medications Generic Name Dose Route Start Last Admin Trade Name Freq PRN Reason Stop Dose Admin Acetaminophen 1,000 mg 04/21/20 15:10 04/23/20 16:05 Acetaminophen 500 Mg Tab PO 1,000 mg Q6H PRN Administration Moderate to Severe Pain (6-10) Amoxicillin/Clavulanate Potassium 500 mg 04/23/20 21:00 04/23/20 20:47 Amoxicillin/Potassium Clav 500 Mg Tab PO 500 mg Q12HR KATHYA Administration Aspirin 81 mg 04/21/20 09:00 04/23/20 09:13 Aspirin 81 Mg Enteric Coated Tablet PO 81 mg DAILY KATHYA Administration Atorvastatin Calcium 20 mg 04/21/20 21:00 04/23/20 20:44 Atorvastatin Calcium 20 Mg Tab PO 20 mg HS KATHYA Administration Carvedilol 6.25 mg 04/21/20 21:00 04/23/20 20:46 Carvedilol 6.25 Mg Tab PO 6.25 mg BID KATHYA Administration Carvedilol 6.25 mg 04/23/20 21:00 04/23/20 20:47 Carvedilol 6.25 Mg Tab PO Not Given BID KATHYA Enoxaparin Sodium 30 mg 04/22/20 21:00 04/23/20 20:43 Enoxaparin Sodium 30 Mg/0.3 Ml Syringe SC 30 mg 2100 KATHYA Administration Gabapentin 300 mg 04/23/20 21:00 04/23/20 20:44 Gabapentin 300 Mg Cap PO 300 mg TID KATHYA Administration Potassium Chloride 20 meq/ 1,010 mls @ 70 mls/hr 04/23/20 16:58 04/24/20 04:40 Lactated Ringer's IV 1,010 mls .[id number] KATHYA Administration Isosorbide Mononitrate 30 mg 04/21/20 09:00 04/23/20 09:14 Isosorbide Mononitrate Er 30 Mg Tab PO Not Given DAILY KATHYA Levothyroxine Sodium 25 mcg 04/24/20 06:00 04/24/20 04:51 Levothyroxine Sodium 25 Mcg Tab PO Not Given 0600 KATHYA Melatonin 3 mg 04/20/20 21:00 04/23/20 20:44 Melatonin 3 Mg Tab PO 3 mg HS KATHYA Administration Ondansetron HCl 4 mg 04/20/20 15:21 04/21/20 15:00 Ondansetron Pf 4 Mg/2 Ml Vial IVP 4 mg Q6H PRN Administration Nausea Tamsulosin HCl 0.4 mg 04/21/20 09:00 04/23/20 09:13 Tamsulosin Hcl 0.4 Mg Cap PO 0.4 mg DAILY KATHYA Administration Tramadol HCl 50 mg 04/21/20 15:10 04/23/20 16:05 Tramadol Hcl 50 Mg Tab PO 50 mg Q4H PRN Administration Moderate Pain (4-6) Hospitalist Exam Vitals: Vital Signs (12 hours) Temp Pulse Resp BP BP Pulse Ox 04/24/20 04:00 99.0 F 74 14 155/62 H 96 04/24/20 00:00 98.3 F 68 16 169/83 H 97 04/23/20 20:46 158/73 H 04/23/20 20:45 97.5 F L 70 18 158/73 H 93 L Weight Weight 210 lb 14.4 oz General Appearance: NAD Heart: RRR, no murmur Respiratory: no wheezes, no rales, no ronchi Gastrointestinal: soft, normal bowel sounds, no palpable masses Gastrointestinal - other findings: mild ttp throughout Extremities: no cyanosis, no clubbing, no edema Psychiatric - other findings: unable to adequately assess Hosp A/P (1) Hypernatremia Code(s): E87.0 - HYPEROSMOLALITY AND HYPERNATREMIA Status: Acute (2) Acute cholecystitis Code(s): K81.0 - ACUTE CHOLECYSTITIS Status: Resolved (3) Lznrv-ny-vemorae kidney injury Code(s): N17.9 - ACUTE KIDNEY FAILURE, UNSPECIFIED; N18.9 - CHRONIC KIDNEY DISEASE, UNSPECIFIED Status: Acute (4) History of diastolic dysfunction Code(s): Z86.79 - PERSONAL HISTORY OF OTHER DISEASES OF THE CIRCULATORY SYSTEM Status: Acute (5) N&V (nausea and vomiting) Code(s): R11.2 - NAUSEA WITH VOMITING, UNSPECIFIED Status: Acute (6) Paroxysmal atrial fibrillation Code(s): I48.0 - PAROXYSMAL ATRIAL FIBRILLATION Status: Chronic (7) DM type 2 (diabetes mellitus, type 2) Status: Chronic Qualifiers: Diabetes mellitus alf insulin use: without installation and repair technician use Diabetes mellitus complication status: with neurologic complications Diabetes mellitus complication detail: with polyneuropathy Qualified Code(s): E11.42 - Type 2 diabetes mellitus with diabetic polyneuropathy (8) Dyslipidemia Code(s): E78.5 - HYPERLIPIDEMIA, UNSPECIFIED Status: Chronic (9) H/O: CVA (cerebrovascular accident) Code(s): Z86.73 - PRSNL HX OF TIA (TIA), AND CEREB INFRC W/O RESID DEFICITS Status: Chronic (10) HTN (hypertension) Code(s): I10 - ESSENTIAL (PRIMARY) HYPERTENSION Status: Chronic Qualifiers: Hypertension type: essential hypertension Qualified Code(s): I10 - Essential (primary) hypertension (11) Obesity (BMI 30.0-34.9) Code(s): E66.9 - OBESITY, UNSPECIFIED Status: Chronic (12) Anemia Code(s): D64.9 - ANEMIA, UNSPECIFIED Status: Chronic Qualifiers: Anemia type: unspecified type Qualified Code(s): D64.9 - Anemia, unspecified - Plan Acute cholecystitis Patient presented with nausea, vomiting, abdominal pain and now s/p cholecystectomy on 04/22 Patient had significant disease of the gallbladder. Hypotension: During the hospitalization he had systolic blood pressure was low around 90, He received additional IV fluids and a dose of midodrine, and albumin with improvement. bp's are slightly elevated this morning and home meds are ordered Urinary retention: Pt with urinary retention and khalil catheter placed to gravity. Patient is on tamsulosin routinely and likely has underlying BPH. N&V (nausea and vomiting) Secondary to cholecystitis. Continue Zofran as needed. Resolved. Diarrhea Appears to be improved Elevated troponin I level Appreciate cardiology input. Attributed to dehydration and REA. [id number]-[id number] kidney injury Monitor renal function nephrology consult Avoid nephrotoxic meds, lisinopril discontinued Difficult fluid management situation given the patient's significant diastolic dysfunction and elevated BNP. Hypernatremia new today - has been on LR - will change to D5 1/2 NS and monitor Anemia Chronic and stable Chronic anticoagulation Secondary to paroxysmal atrial fibrillation. Eliquis was held due to surgery. DM type 2 (diabetes mellitus, type 2) In light of renal function and decreased PO intake cover with ISS only Accucheks ACHS D/c Actos with patient's history of heart failure. Blood sugars are well controlled Dyslipidemia Continue atorvastatin H/O: CVA (cerebrovascular accident) Left sided deficits - Chronic and stable HTN (hypertension) Monitor BP Resume home meds as appropriate Lisinopril held in light of REA and hypotension Obesity (BMI 30.0-34.9) hypomagnesemia resolved hypokalemia - resolved diastolic dysfunction Patient's prior echo revealed a preserved ejection fraction but evidence of diastolic dysfunction Patient's BNP has continually climbed as a result of necessary fluid resuscitation. Typically on diuretics at home but these have been held. Cardiology following. Hypernatremia - change LR to D5 1/2 NS and monitor Anemia chronic and stable Elevated lft's Stable GI prophylaxis - on home protonix DVT Prophylaxis - patient on chronic anticoagulation, SCDs applied, lovenox with renal dosing. Pt is on apixaban at home - resume when considered safer. addendum at 18:51 - reviewed note from Dr. Posey/General Surgery and eliquis can be resumed. Will restart tonight with request for pharmacy to check renal dosing. d/c lovenox.
[2020-04-24 07:46] LABS: #Eosinphils 0.3 thou/uL (0.0-0.7); #Monocytes 0.9 thou/uL (0.11-0.59); #Neutrophils 9.3 thou/uL (1.40-6.50); %Eosinophils 2.6 % (0.0-10.0); %Lymphocytes 8.8 % (21.0-51.0); %Monocytes 7.5 % (0.0-10.0); %Neutrophils 81.1 % (42.0-75.0); Hemoglobin 8.4 g/dL (14.0-18.0); Mean Corpuscular HGB CONC 33.2 g/dL (32.0-36.0); Mean Corpuscular Hemoglobin 31.8 pg (27.0-31.0); Mean Corpuscular Volume 95.8 fL (78.0-98.0); Mean Platelet Volume 9.6 fL (7.4-10.4); Platelet Count 161 thou/uL (130-400); RBC Distribution Width 11.7 % (11.5-14.5); Red Blood Cell (RBC) Count 2.65 mill/uL (4.70-6.10); White Blood Cell (WBC) Count 11.5 thou/uL (4.8-10.8)
[2020-04-24 08:33] LABS: ALT (SGPT) 56 U/L (8-55); AST (SGOT) 46 U/L (5-34); Albumin 2.7 g/dL (3.4-4.8); Alkaline Phosphatase 138 U/L (40-110); Anion Gap 16 mmol/L (10-20); BUN (Urea Nitrogen) 28 mg/dL (8.4-25.7); Bilirubin, Total 0.7 mg/dL (0.2-1.2); Calc. Creatinine Clearance 37 mL/min (70-130); Calcium 8.4 mg/dL (7.8-10.44); Carbon Dioxide 21 mmol/L (23-31); Chloride 115 mmol/L (98-107); Globulin 2.8 g/dL (2.4-3.5); Glucose 118 mg/dL (83-110); Potassium 3.6 mmol/L (3.5-5.1); Protein, Total 5.5 g/dL (5.8-8.1); Sodium 148 mmol/L (136-145)
[2020-04-24] MEDS ORDERED: Pioglitazone HCl 15 MG TAB PO SCH (09:00)
--- NOTE | 2020-04-24 09:29 | PDOC.GSPN ---
Surgery Progress Note: Subj - Subjective Narrative: Patient is status post laparoscopic cholecystectomy for acute cholecystitis. This morning, he denies any nausea. States that his pain is well controlled. Denies any bowel movements. Seems a little somnolent, but answers questions. Surgery Progress Note: Obj - Vital signs Vital signs: Vital Signs - Most Recent Temp Pulse Resp BP Pulse Ox 98.4 F 78 18 170/82 H 93 L 04/24/20 07:19 04/24/20 07:19 04/24/20 07:19 04/24/20 07:19 04/24/20 07:19 - Physical Exam Additional exam: In general, obese male, appears chronically ill Abdomen-protuberant but soft incisions are clean dry and intact. Judah-Chavez drain has serosanguineous fluid in it. It was removed without difficulty. No indication for wound infection Surgery Progress Note: Results - Labs Result Diagrams: 04/24/20 Unknown 04/24/20 Unknown Lab results: Laboratory Results - last 12 hr 04/24/20 04/24/20 04/24/20 06:08 07:14 07:14 WBC 11.5 H RBC 2.65 L Hgb 8.4 L Hct 25.4 L MCV 95.8 MCH 31.8 H MCHC 33.2 RDW 11.7 Plt Count 161 MPV 9.6 Neutrophils % 81.1 H Lymphocytes % 8.8 L Monocytes % 7.5 Eosinophils % 2.6 Basophils % 0.0 Neutrophils # 9.3 H Lymphocytes # 1.0 L Monocytes # 0.9 H Eosinophils # 0.3 Basophils # 0.0 Sodium 148 H Potassium 3.6 Chloride 115 H Carbon Dioxide 21 L Anion Gap 16 BUN 28 H Creatinine 2.29 H Estimated GFR (MDRD) 28 Glucose 118 H POC Glucose 114 H Calcium 8.4 Total Bilirubin 0.7 AST 46 H ALT 56 H Alkaline Phosphatase 138 H Serum Total Protein 5.5 L Albumin 2.7 L Globulin 2.8 Albumin/Globulin Ratio 1.0 L 04/24/20 04/24/20 Unknown Unknown WBC 11.0 H RBC 2.73 L Hgb 8.3 L Hct 25.8 L MCV 94.2 MCH 30.3 MCHC 32.2 RDW 11.8 Plt Count 168 MPV 9.4 Neutrophils % 81.3 H Lymphocytes % 9.4 L Monocytes % 6.9 Eosinophils % 2.2 Basophils % 0.2 Neutrophils # 9.0 H Lymphocytes # 1.0 L Monocytes # 0.8 H Eosinophils # 0.2 Basophils # 0.0 Sodium 147 H Potassium 3.5 Chloride 115 H Carbon Dioxide 21 L Anion Gap 15 BUN 27 H Creatinine 2.36 H Estimated GFR (MDRD) 27 Glucose 121 H POC Glucose Calcium 8.1 Total Bilirubin 0.7 AST 45 H ALT 57 H Alkaline Phosphatase 129 H Serum Total Protein 5.4 L Albumin 2.7 L Globulin 2.7 Albumin/Globulin Ratio 1.0 L Surgery Progress Note: A/P - Problem (1) Abdominal pain Current Visit: Yes Code(s): R10.9 - UNSPECIFIED ABDOMINAL PAIN Status: Acute Assessment and Plan: From a surgical standpoint, his white blood cell count continues to decrease. His LFTs are improving. His drain was removed today. Follow-up with things were equal, he could be discharged; however, he obviously has numerous medical issues that need stabilization prior to disposition. It appears he needs evaluation from speech therapy prior to starting a diet. Patient's fluid balance is being handled between cardiology and nephrology. The patient's creatinine is slightly better today. Plan would be to advance his diet when speech pathology has rendered an opinion. Management of fluid per nephrology/cardiology We will try to establish peripheral access prior to removing his central line. At that point, we can restart his apixaban.
[2020-04-24] MEDS: Aspirin 81 mg Enteric Coated Tablet PO SCH (09:41)
[2020-04-24] MEDS: Dextrose 5 %-0.45 % NaCl 1,000 ML IV SCH ×2 (09:42→21:06)
[2020-04-24] MEDS: FLUoxetine HCl 20 MG CAP PO SCH (09:43)
[2020-04-24] MEDS: Gabapentin 300 MG CAP PO SCH ×3 (09:44→21:06)
[2020-04-24] MEDS: Carvedilol 6.25 MG TAB PO SCH ×2 (09:44→21:01)
[2020-04-24] MEDS: Tamsulosin HCl 0.4 MG CAP PO SCH (09:45)
[2020-04-24] MEDS: Amoxicillin/Potassium Clav 500 MG TAB PO SCH ×2 (10:48→21:05)
[2020-04-24] MEDS ORDERED: Furosemide 40 MG/4 ML VIAL ONE (11:04)
[2020-04-24] MEDS ORDERED: Furosemide 20 MG/2 ML VIAL SLOW IVP SCH (12:00)
--- NOTE | 2020-04-24 12:13 | PRG ---
DATE OF SERVICE: 04/24/2020 SUBJECTIVE: The patient was seen and examined at bedside. was at the bedside. The patient is more sleepy today and more awake. He was sitting up in the chair at bedside. Nurse updated that he is not making much urine despite being on fluids. No shortness of breath or chest pain. He is also n.p.o. for swallow evaluation since he choked yesterday. OBJECTIVE: GENERAL: This is an obese male, in no apparent distress. VITAL SIGNS: Temperature 98.4, pulse 78, respiratory rate 18, blood pressure 170/82. HEENT: Atraumatic, normocephalic. NECK: Supple. CARDIOVASCULAR: S1 and S2 heard. RESPIRATORY: Clear. GASTROINTESTINAL: Abdomen is soft. MUSCULOSKELETAL: 1+ edema. DERMATOLOGIC: No skin rash. NEUROLOGIC: Somnolent. LABORATORY DATA: Hemoglobin is 8.3. Potassium 3.5, sodium 147, BUN is 27, creatinine is 2.3. ASSESSMENT AND PLAN: 1. Acute kidney injury on chronic kidney disease, stage 4. Renal function with slight worsening. Urine output is dropping. We will give a dose of Lasix. Continue IV fluids. 2. Urinary retention. Continue on Velasquez. 3. Cardiorenal syndrome. 4. History of hypertension. 5. Hypokalemia. 6. Acute cholecystitis. Avoid nephrotoxins. Continue IV fluids with close monitoring of cardiorespiratory status. We will follow. Job ID: [id number]
--- NOTE | 2020-04-24 20:24 | EKG ---
Test Reason : Blood Pressure : / mmHG Vent. Rate : 062 BPM Atrial Rate : 062 BPM P-R Int : 224 ms QRS Dur : 096 ms QT Int : 418 ms P-R-T Axes : -07 -13 039 degrees QTc Int : 424 ms Sinus rhythm with 1st degree A-V block Low voltage QRS Inferior infarct , age undetermined Abnormal ECG Confirmed by RAEANN HOYT M.D. ([id number]), film editor supervisor SHERYL KENNEDY ([id number]) on 04/24/2020 8:24:17 PM Referred By: Confirmed By:RAEANN HOYT M.D.
[2020-04-24] MEDS: Apixaban 5 MG TAB PO SCH (21:05)
[2020-04-24] MEDS: Atorvastatin Calcium 20 MG TAB PO SCH (21:05)
[2020-04-24] MEDS: Melatonin 3 MG TAB PO SCH (21:06)
[2020-04-24] MEDS ORDERED: Metoprolol Tartrate 5 MG/5 ML VIAL IVP SCH (22:45)
[2020-04-24 23:09] LABS: Hemoglobin 8.3 g/dL (14.0-18.0)
[2020-04-24 23:26] LABS: Anion Gap 11 mmol/L (10-20); BUN (Urea Nitrogen) 24 mg/dL (8.4-25.7); Calc. Creatinine Clearance 38 mL/min (70-130); Calcium 7.9 mg/dL (7.8-10.44); Carbon Dioxide 25 mmol/L (23-31); Chloride 115 mmol/L (98-107); Glucose 149 mg/dL (83-110); Magnesium 1.9 mg/dL (1.6-2.6); Potassium 3.2 mmol/L (3.5-5.1); Sodium 148 mmol/L (136-145)
[2020-04-24 23:49] LABS: CKMB 0.5 ng/mL (0-6.6)
[2020-04-25] MEDS: Dextrose 5 %-0.45 % NaCl 1,000 ML IV SCH (00:25)
[2020-04-25 02:30] LABS: #Eosinphils 0.3 thou/uL (0.0-0.7); #Lymphocytes 1.2 thou/uL (1.20-3.40); #Monocytes 0.8 thou/uL (0.11-0.59); #Neutrophils 9.2 thou/uL (1.40-6.50); %Eosinophils 2.4 % (0.0-10.0); %Lymphocytes 10.7 % (21.0-51.0); %Monocytes 6.9 % (0.0-10.0); %Neutrophils 79.9 % (42.0-75.0); Hemoglobin 8.6 g/dL (14.0-18.0); Mean Corpuscular HGB CONC 32.5 g/dL (32.0-36.0); Mean Corpuscular Hemoglobin 30.7 pg (27.0-31.0); Mean Corpuscular Volume 94.5 fL (78.0-98.0); Mean Platelet Volume 8.9 fL (7.4-10.4); Platelet Count 200 thou/uL (130-400); RBC Distribution Width 11.9 % (11.5-14.5); Red Blood Cell (RBC) Count 2.81 mill/uL (4.70-6.10); White Blood Cell (WBC) Count 11.5 thou/uL (4.8-10.8)
[2020-04-25 03:36] LABS: ALT (SGPT) 48 U/L (8-55); AST (SGOT) 35 U/L (5-34); Albumin 2.7 g/dL (3.4-4.8); Alkaline Phosphatase 116 U/L (40-110); Anion Gap 13 mmol/L (10-20); BUN (Urea Nitrogen) 25 mg/dL (8.4-25.7); Bilirubin, Total 0.6 mg/dL (0.2-1.2); Calc. Creatinine Clearance 41 mL/min (70-130); Carbon Dioxide 21 mmol/L (23-31); Chloride 115 mmol/L (98-107); Globulin 2.8 g/dL (2.4-3.5); Glucose 149 mg/dL (83-110); Potassium 3.2 mmol/L (3.5-5.1); Protein, Total 5.5 g/dL (5.8-8.1); Sodium 146 mmol/L (136-145)
[2020-04-25 03:48] LABS: CKMB 0.4 ng/mL (0-6.6)
[2020-04-25] MEDS: Levothyroxine Sodium 25 MCG TAB PO SCH (06:26)
--- NOTE | 2020-04-25 07:20 | PDOC.HOSPP ---
- Subjective Encounter Date: 04/25/20 (f/u acute cholecystitis) Encounter Time: 07:19 Subjective: Pt transferred to tele overnight due to a fib with RVR. He remains NPO - did not receive a speech therapy consult and has been off of carvedilol. He is currently sleeping. He does c/o low back pain - thinks it has been there. - Objective Vital Signs & Weight: Vital Signs (12 hours) Temp Pulse Resp BP BP Pulse Ox 04/25/20 04:00 98.9 F 107 H 16 135/70 95 04/25/20 00:33 108 H 122/74 04/24/20 23:49 98.3 F 114 H 18 120/59 L 93 L 04/24/20 23:28 98.1 F 126 H 16 118/70 94 L 04/24/20 21:01 122/83 04/24/20 20:00 98 F 108 H 18 122/83 95 Weight Weight 210 lb 14.4 oz I&O: 04/24/20 04/25/20 04/26/20 06:59 06:59 06:59 Intake Total 2240 1350 Output Total 1080 1100 Balance 1160 250 Result Diagrams: 04/25/20 02:10 04/25/20 02:10 Additional Labs: Accuchecks 04/25/20 04/24/20 04/24/20 06:02 21:11 17:06 POC Glucose 144 H 138 H 144 H 04/24/20 11:33 POC Glucose 137 H EKG Reviewed by me: Yes (tele - a fib with rates 100-110's) Hospitalist ROS - Medication Medications: Active Medications Generic Name Dose Route Start Last Admin Trade Name Freq PRN Reason Stop Dose Admin Acetaminophen 1,000 mg 04/21/20 15:10 04/23/20 16:05 Acetaminophen 500 Mg Tab PO 1,000 mg Q6H PRN Administration Moderate to Severe Pain (6-10) Amoxicillin/Clavulanate Potassium 500 mg 04/23/20 21:00 04/24/20 21:05 Amoxicillin/Potassium Clav 500 Mg Tab PO Not Given Q12HR KAHTYA Apixaban 5 mg 04/24/20 21:00 04/24/20 21:05 Apixaban 5 Mg Tab PO Not Given BID KATHYA Aspirin 81 mg 04/21/20 09:00 04/24/20 09:41 Aspirin 81 Mg Enteric Coated Tablet PO 81 mg DAILY KATHYA Administration Atorvastatin Calcium 20 mg 04/21/20 21:00 04/24/20 21:05 Atorvastatin Calcium 20 Mg Tab PO Not Given HS KATHYA Carvedilol 6.25 mg 04/21/20 21:00 04/24/20 21:01 Carvedilol 6.25 Mg Tab PO 6.25 mg BID KATHYA Administration Fluoxetine HCl 40 mg 04/24/20 09:00 04/24/20 09:43 Fluoxetine Hcl 20 Mg Cap PO 40 mg DAILY KATHYA Administration Gabapentin 300 mg 04/23/20 21:00 04/24/20 21:06 Gabapentin 300 Mg Cap PO Not Given TID KATHYA Dextrose/Sodium Chloride 1,000 mls @ 75 mls/hr 04/24/20 07:45 04/25/20 00:25 D5 1/2 Ns IV 1,000 mls .[id number] KATHYA Administration Isosorbide Mononitrate 30 mg 04/21/20 09:00 04/24/20 09:45 Isosorbide Mononitrate Er 30 Mg Tab PO 30 mg DAILY [facility] Administration Levothyroxine Sodium 25 mcg 04/24/20 06:00 04/25/20 06:26 Levothyroxine Sodium 25 Mcg Tab PO Not Given 0600 [facility] Melatonin 3 mg 04/20/20 21:00 04/24/20 21:06 Melatonin 3 Mg Tab PO Not Given HS [facility] Ondansetron HCl 4 mg 04/20/20 15:21 04/21/20 15:00 Ondansetron Pf 4 Mg/2 Ml Vial IVP 4 mg Q6H PRN Administration Nausea Pantoprazole Sodium 40 mg 04/24/20 09:00 04/24/20 09:45 Pantoprazole 40 Mg Tab PO 40 mg DAILY KATHYA Administration Tamsulosin HCl 0.4 mg 04/21/20 09:00 04/24/20 09:45 Tamsulosin Hcl 0.4 Mg Cap PO 0.4 mg DAILY KATHYA Administration Tramadol HCl 50 mg 04/21/20 15:10 04/23/20 16:05 Tramadol Hcl 50 Mg Tab PO 50 mg Q4H PRN Administration Moderate Pain (4-6) Hospitalist Exam Vitals: Vital Signs (12 hours) Temp Pulse Resp BP BP Pulse Ox 04/25/20 04:00 98.9 F 107 H 16 135/70 95 04/25/20 00:33 108 H 122/74 04/24/20 23:49 98.3 F 114 H 18 120/59 L 93 L 04/24/20 23:28 98.1 F 126 H 16 118/70 94 L 04/24/20 21:01 122/83 04/24/20 20:00 98 F 108 H 18 122/83 95 Weight Weight 210 lb 14.4 oz General Appearance: NAD General - other findings: easily falls asleep Heart: no murmur, irregular Respiratory: no wheezes, no rales, no ronchi Gastrointestinal: soft Gastrointestinal - other findings: ttp throughout, abd soft Musculoskeletal - other findings: right hand contracture, no movement on left side Psychiatric - other findings: easily falls asleep Hosp A/P (1) Hypernatremia Code(s): E87.0 - HYPEROSMOLALITY AND HYPERNATREMIA Status: Acute (2) Acute cholecystitis Code(s): K81.0 - ACUTE CHOLECYSTITIS Status: Resolved (3) Ebpfc-sc-[id number] kidney injury Code(s): N17.9 - ACUTE KIDNEY FAILURE, UNSPECIFIED; N18.9 - CHRONIC KIDNEY DISEASE, UNSPECIFIED Status: Acute (4) History of diastolic dysfunction Code(s): Z86.79 - PERSONAL HISTORY OF OTHER DISEASES OF THE CIRCULATORY SYSTEM Status: Acute (5) N&V (nausea and vomiting) Code(s): R11.2 - NAUSEA WITH VOMITING, UNSPECIFIED Status: Acute (6) Paroxysmal atrial fibrillation Code(s): I48.0 - PAROXYSMAL ATRIAL FIBRILLATION Status: Chronic (7) DM type 2 (diabetes mellitus, type 2) Status: Chronic Qualifiers: 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: without nursing home use Diabetes mellitus complication status: with neurologic complications Diabetes mellitus complication detail: with polyneuropathy Qualified Code(s): E11.42 - Type 2 diabetes mellitus with diabetic polyneuropathy (8) Dyslipidemia Code(s): E78.5 - HYPERLIPIDEMIA, UNSPECIFIED Status: Chronic (9) H/O: CVA (cerebrovascular accident) Code(s): Z86.73 - PRSNL HX OF TIA (TIA), AND CEREB INFRC W/O RESID DEFICITS Status: Chronic (10) HTN (hypertension) Code(s): I10 - ESSENTIAL (PRIMARY) HYPERTENSION Status: Chronic Qualifiers: Hypertension type: essential hypertension Qualified Code(s): I10 - Essential (primary) hypertension (11) Obesity (BMI 30.0-34.9) Code(s): E66.9 - OBESITY, UNSPECIFIED Status: Chronic (12) Anemia Code(s): D64.9 - ANEMIA, UNSPECIFIED Status: Chronic Qualifiers: Anemia type: unspecified type Qualified Code(s): D64.9 - Anemia, unspecified - Plan Patient has had a prolonged hospitalization. S/p cholecystectomy with rea in the context of CKD - found to have urinary retention. Has been on IVF, developed hypernatremia and fluids changed. Overnight developed A fib with RVR - has been off of carvedilol due to NPO status (from choking with meds overnight into 04/24) A fib with RVR - The patient has been NPO longer than anticipated awaiting speech evaluation. Will start scheduled IV metoprolol and d/c when he is able to take PO. Anticipate it will be today and he will be able to take oral meds including eliquis Hypokalemia Replace by IV as the patient is NPO Acute cholecystitis Patient presented with nausea, vomiting, abdominal pain and now s/p chol ecystectomy on 04/22 Patient had significant disease of the gallbladder. Hypotension: During the hospitalization he had systolic blood pressure was low around 90, He received additional IV fluids and a dose of midodrine, and albumin with improvement. Urinary retention: Pt with urinary retention and khalil catheter placed to gravity. Patient is on tamsulosin routinely and likely has underlying BPH. Elevated troponin I level Appreciate cardiology input. Attributed to dehydration and REA. [id number] kidney injury Monitor renal function nephrology managing Avoid nephrotoxic meds, lisinopril discontinued Difficult fluid management situation given the patient's significant diastolic dysfunction and elevated BNP. Hypernatremia Improved - changed to D5 1/2 NS yesterday Anemia Chronic and stable Chronic anticoagulation Secondary to paroxysmal atrial fibrillation. Eliquis was held due to surgery - resume today DM type 2 (diabetes mellitus, type 2) In light of renal function and decreased PO intake cover with ISS only Accucheks ACHS D/c Actos with patient's history of heart failure. Blood sugars are well controlled Dyslipidemia Continue atorvastatin H/O: CVA (cerebrovascular accident) Left sided deficits - Chronic and stable HTN (hypertension) Monitor BP Resume home meds as appropriate Lisinopril held in light of REA and hypotension diastolic dysfunction Patient's prior echo revealed a preserved ejection fraction but evidence of diastolic dysfunction Patient's BNP has continually climbed as a result of necessary fluid resuscitation. Typically on diuretics at home but these have been held. Cardiology following. Elevated lft's Improved GI prophylaxis - on home protonix DVT Prophylaxis - eliquis ordered - awaiting clearance to take oral meds. If he remains NPO will need to order renal dosing of lovenox for secondary stroke risk reduction associated with a fib Addendum - cleared by speech therapy earlier today and resumed oral meds. .
[2020-04-25] MEDS ORDERED: Potassium Chloride 10 MEQ in Premix Bag 1 BAG IVPB SCH (07:45)
--- NOTE | 2020-04-25 10:05 | PDOC.GSPN ---
Surgery Progress Note: Subj - Subjective Narrative: Patient went into atrial fibrillation with RVR last night. He was transferred down to telemetry. This morning, he is hungry. Still somewhat somnolent. His is at bedside. Patient thinks he is passing flatus. Abdominal pain is minimal. Surgery Progress Note: Obj - Vital signs Vital signs: Vital Signs - Most Recent Temp Pulse Resp BP Pulse Ox 98.9 F 107 H 16 135/70 95 04/25/20 04:00 04/25/20 04:00 04/25/20 04:00 04/25/20 04:00 04/25/20 04:00 - Physical Exam Additional exam: General-chronically ill, fairly somnolent, obese Head-[normocephalic, atraumatic] HEENT- [EOMI], [PERRLA] Neck-[trachea midline, supple] Lungs-crackles bilaterally, [normal air movement] Heart-irregularly irregular, [no murmurs] Abdomen-[soft], [nondistended], appropriately tender around incisions, incisions clean dry and intact without erythema, [normal active bowel sounds] Musculosketal-[full range of motion], [no gross deformity] Psychiatric-[good insight, good judgment] Skin-[good turgor, no jaundice] Neuro- [GCS 15], [CN II-XII intact] Surgery Progress Note: Results - Labs Result Diagrams: 04/25/20 02:10 04/25/20 02:10 Lab results: Laboratory Results - last 12 hr 04/24/20 04/24/20 04/24/20 22:46 22:56 23:00 WBC RBC Hgb 8.3 L Hct 25.5 L MCV MCH MCHC RDW Plt Count MPV Neutrophils % Lymphocytes % Monocytes % Eosinophils % Basophils % Neutrophils # Lymphocytes # Monocytes # Eosinophils # Basophils # Sodium 148 H Potassium 3.2 L Chloride 115 H Carbon Dioxide 25 Anion Gap 11 BUN 24 Creatinine 2.23 H Estimated GFR (MDRD) 29 Glucose 149 H POC Glucose Calcium 7.9 Magnesium 1.9 Total Bilirubin AST ALT Alkaline Phosphatase CK-MB (CK-2) 0.5 Troponin I 0.118 H Serum Total Protein Albumin Globulin Albumin/Globulin Ratio 04/25/20 04/25/20 04/25/20 02:10 02:10 02:10 WBC 11.5 H RBC 2.81 L Hgb 8.6 L Hct 26.5 L MCV 94.5 MCH 30.7 MCHC 32.5 RDW 11.9 Plt Count 200 MPV 8.9 Neutrophils % 79.9 H Lymphocytes % 10.7 L Monocytes % 6.9 Eosinophils % 2.4 Basophils % 0.0 Neutrophils # 9.2 H Lymphocytes # 1.2 Monocytes # 0.8 H Eosinophils # 0.3 Basophils # 0.0 Sodium 146 H Potassium 3.2 L Chloride 115 H Carbon Dioxide 21 L Anion Gap 13 BUN 25 Creatinine 2.09 H Estimated GFR (MDRD) 31 Glucose 149 H POC Glucose Calcium 8.0 Magnesium Total Bilirubin 0.6 AST 35 H ALT 48 Alkaline Phosphatase 116 H CK-MB (CK-2) 0.4 Troponin I 0.099 H Serum Total Protein 5.5 L Albumin 2.7 L Globulin 2.8 Albumin/Globulin Ratio 1.0 L 04/25/20 06:02 WBC RBC Hgb Hct MCV MCH MCHC RDW Plt Count MPV Neutrophils % Lymphocytes % Monocytes % Eosinophils % Basophils % Neutrophils # Lymphocytes # Monocytes # Eosinophils # Basophils # Sodium Potassium Chloride Carbon Dioxide Anion Gap BUN Creatinine Estimated GFR (MDRD) Glucose POC Glucose 144 H Calcium Magnesium Total Bilirubin AST ALT Alkaline Phosphatase CK-MB (CK-2) Troponin I Serum Total Protein Albumin Globulin Albumin/Globulin Ratio Surgery Progress Note: A/P - Problem (1) Abdominal pain Current Visit: Yes Code(s): R10.9 - UNSPECIFIED ABDOMINAL PAIN Status: Acute Assessment and Plan: Still waiting on speech therapy. Once this has been finished, hopefully the patient can be started on a diet. I think he could probably go to a soft diet if that is deemed acceptable by speech therapy. Appreciate hospitalist input on the patient's atrial fibrillation. He is already back on his Eliquis. The patient's seems to think that he will be going home from the hospital, given his state of current state of activity, I think that she will have a difficult time taking care of him at home.
[2020-04-25] MEDS: Metoprolol Tartrate 5 MG/5 ML VIAL IVP SCH ×2 (10:18→16:23)
[2020-04-25] MEDS: Carvedilol 6.25 MG TAB PO SCH ×2 (11:01→19:58)
[2020-04-25] MEDS: Tamsulosin HCl 0.4 MG CAP PO SCH (11:27)
[2020-04-25] MEDS: Aspirin 81 mg Enteric Coated Tablet PO SCH (11:27)
[2020-04-25] MEDS: Gabapentin 300 MG CAP PO SCH ×3 (11:27→19:57)
[2020-04-25] MEDS: Apixaban 5 MG TAB PO SCH ×2 (11:27→19:57)
[2020-04-25] MEDS: FLUoxetine HCl 20 MG CAP PO SCH (11:28)
--- NOTE | 2020-04-25 12:51 | PRG ---
DATE OF SERVICE: 04/25/2020 SUBJECTIVE: Patient was seen and examined at bedside and overnight events noted. Patient denies any shortness of breath or chest pain or palpitation. No history of nausea or vomiting or diarrhea or fever or chills or cramps. OBJECTIVE: GENERAL: This is a well-built male, in no apparent distress. VITAL SIGNS: Temperature 98.1, pulse 103, respiratory rate 18, blood pressure 127/83. HEENT: Atraumatic, normocephalic. Oral mucosa is moist NECK: Supple. CARDIOVASCULAR: S1, S2 heard. Rate and rhythm regular. RESPIRATORY: Clear to auscultation. GASTROINTESTINAL: Abdomen is soft. MUSCULOSKELETAL: 1+ edema. DERMATOLOGIC: No skin rash. NEUROLOGIC: Alert and awake and oriented X3. No focal neurologic deficits. Moving all the extremities. PSYCHIATRIC: Mood and affect normal. LABORATORY DATA: Hemoglobin is 8.6, potassium 3.2, BUN is 35, creatinine is 2.09. ASSESSMENT AND PLAN: 1. Acute kidney injury on chronic kidney, stage 4. Labs are better. 2. Urinary retention. Continue Velasquez. 3. Cardiorenal syndrome. 4. History of hypertension. 5. Hypokalemia. 6. Acute cholecystitis. Continue to monitor labs. Job ID: [id number]
[2020-04-25] MEDS ORDERED: Metoprolol Tartrate 5 MG/5 ML VIAL IVP SCH (16:15)
[2020-04-25] MEDS: Amoxicillin/Potassium Clav 500 MG TAB PO SCH ×2 (16:21→19:56)
[2020-04-25] MEDS ORDERED: Amiodarone 450 MG in Dextrose 5% in Water 250 ML IVPB SCH (18:30)
[2020-04-25] MEDS ORDERED: Amiodarone 150 MG in Dextrose 5% in Water 100 ML IVPB SCH (18:30)
[2020-04-25] MEDS: Atorvastatin Calcium 20 MG TAB PO SCH (19:56)
[2020-04-25] MEDS: Acetaminophen 500 MG TAB PO PRN (19:57)
[2020-04-25] MEDS: Melatonin 3 MG TAB PO SCH (19:57)
[2020-04-26] MEDS: Levothyroxine Sodium 25 MCG TAB PO SCH (05:39)
[2020-04-26 06:23] LABS: #Eosinphils 0.4 thou/uL (0.0-0.7); #Lymphocytes 1.6 thou/uL (1.20-3.40); #Monocytes 0.7 thou/uL (0.11-0.59); %Basophils 0.1 % (0.0-1.0); %Eosinophils 2.8 % (0.0-10.0); %Lymphocytes 12.7 % (21.0-51.0); %Monocytes 5.4 % (0.0-10.0); %Neutrophils 79.1 % (42.0-75.0); Hemoglobin 8.9 g/dL (14.0-18.0); Mean Corpuscular HGB CONC 32.5 g/dL (32.0-36.0); Mean Corpuscular Hemoglobin 30.6 pg (27.0-31.0); Mean Corpuscular Volume 94.1 fL (78.0-98.0); Mean Platelet Volume 8.7 fL (7.4-10.4); Platelet Count 241 thou/uL (130-400); RBC Distribution Width 11.8 % (11.5-14.5); Red Blood Cell (RBC) Count 2.91 mill/uL (4.70-6.10); White Blood Cell (WBC) Count 12.6 thou/uL (4.8-10.8)
[2020-04-26 06:38] LABS: ALT (SGPT) 72 U/L (8-55); AST (SGOT) 75 U/L (5-34); Albumin 2.6 g/dL (3.4-4.8); Alkaline Phosphatase 278 U/L (40-110); Anion Gap 14 mmol/L (10-20); BUN (Urea Nitrogen) 21 mg/dL (8.4-25.7); Bilirubin, Total 0.7 mg/dL (0.2-1.2); Calc. Creatinine Clearance 50 mL/min (70-130); Calcium 7.7 mg/dL (7.8-10.44); Carbon Dioxide 21 mmol/L (23-31); Chloride 113 mmol/L (98-107); Globulin 2.8 g/dL (2.4-3.5); Glucose 131 mg/dL (83-110); Potassium 3.1 mmol/L (3.5-5.1); Protein, Total 5.4 g/dL (5.8-8.1); Sodium 145 mmol/L (136-145)
[2020-04-26] MEDS: FLUoxetine HCl 20 MG CAP PO SCH (08:06)
[2020-04-26] MEDS: Carvedilol 6.25 MG TAB PO SCH ×2 (08:07→22:32)
[2020-04-26] MEDS: Apixaban 5 MG TAB PO SCH ×2 (08:07→22:32)
[2020-04-26] MEDS: Amoxicillin/Potassium Clav 500 MG TAB PO SCH ×2 (08:07→22:31)
[2020-04-26] MEDS: Aspirin 81 mg Enteric Coated Tablet PO SCH (08:07)
[2020-04-26] MEDS: Gabapentin 300 MG CAP PO SCH ×3 (08:07→22:31)
[2020-04-26] MEDS: Tamsulosin HCl 0.4 MG CAP PO SCH (08:07)
--- NOTE | 2020-04-26 08:19 | PDOC.HOSPP ---
- Subjective Encounter Date: 04/26/20 Encounter Time: 08:16 Subjective: absolutely no complaints - Objective Vital Signs & Weight: Vital Signs (12 hours) Temp Pulse Resp BP Pulse Ox 04/26/20 04:00 98.5 F 80 20 116/66 97 04/25/20 23:00 98.0 F 95 14 132/81 97 04/25/20 21:00 100.0 F H 126 H 19 138/66 95 Weight Weight 210 lb 14.4 oz I&O: 04/25/20 04/26/20 04/27/20 06:59 06:59 06:59 Intake Total 1350 Output Total 1100 Balance 250 Result Diagrams: 04/26/20 06:06 04/26/20 06:06 Additional Labs: Accuchecks 04/26/20 04/25/20 04/25/20 05:41 19:55 17:38 POC Glucose 126 H 127 H 135 H 04/25/20 11:03 POC Glucose 123 H Hospitalist ROS - Medication Medications: Active Medications Generic Name Dose Route Start Last Admin Trade Name Henryq PRN Reason Stop Dose Admin Acetaminophen 1,000 mg 04/21/20 15:10 04/25/20 19:57 Acetaminophen 500 Mg Tab PO 1,000 mg Q6H PRN Administration Moderate to Severe Pain (6-10) Amoxicillin/Clavulanate Potassium 500 mg 04/23/20 21:00 04/26/20 08:07 Amoxicillin/Potassium Clav 500 Mg Tab PO 500 mg Q12HR KATHYA Administration Apixaban 5 mg 04/24/20 21:00 04/26/20 08:07 Apixaban 5 Mg Tab PO 5 mg BID KATHYA Administration Aspirin 81 mg 04/21/20 09:00 04/26/20 08:07 Aspirin 81 Mg Enteric Coated Tablet PO 81 mg DAILY KATHYA Administration Atorvastatin Calcium 20 mg 04/21/20 21:00 04/25/20 19:56 Atorvastatin Calcium 20 Mg Tab PO 20 mg HS KATHYA Administration Carvedilol 6.25 mg 04/21/20 21:00 04/26/20 08:07 Carvedilol 6.25 Mg Tab PO 6.25 mg BID KATHYA Administration Fluoxetine HCl 40 mg 04/24/20 09:00 04/26/20 08:06 Fluoxetine Hcl 20 Mg Cap PO 40 mg DAILY KATHYA Administration Gabapentin 300 mg 04/23/20 21:00 04/26/20 08:07 Gabapentin 300 Mg Cap PO 300 mg TID KATHYA Administration Amiodarone HCl 450 mg/ 259 mls @ 0 mls/hr 04/25/20 18:30 04/26/20 05:39 Dextrose/Water IVPB 259 mls INF KATHYA Administration Protocol Per Protocol Isosorbide Mononitrate 30 mg 04/21/20 09:00 04/26/20 08:07 Isosorbide Mononitrate Er 30 Mg Tab PO 30 mg DAILY KATHYA Administration Levothyroxine Sodium 25 mcg 04/24/20 06:00 04/26/20 05:39 Levothyroxine Sodium 25 Mcg Tab PO 25 mcg 0600 KATHYA Administration Melatonin 3 mg 04/20/20 21:00 04/25/20 19:57 Melatonin 3 Mg Tab PO 3 mg HS KATHYA Administration Ondansetron HCl 4 mg 04/20/20 15:21 04/21/20 15:00 Ondansetron Pf 4 Mg/2 Ml Vial IVP 4 mg Q6H PRN Administration Nausea Pantoprazole Sodium 40 mg 04/24/20 09:00 04/26/20 08:07 Pantoprazole 40 Mg Tab PO 40 mg DAILY KATHYA Administration Sodium Chloride 10 ml 04/20/20 15:21 04/26/20 08:09 Flush - Normal Saline 10 Ml Syringe IVF 10 ml PRN PRN Administration Saline Flush Tamsulosin HCl 0.4 mg 04/21/20 09:00 04/26/20 08:07 Tamsulosin Hcl 0.4 Mg Cap PO 0.4 mg DAILY KATHYA Administration Tramadol HCl 50 mg 04/21/20 15:10 04/23/20 16:05 Tramadol Hcl 50 Mg Tab PO 50 mg Q4H PRN Administration Moderate Pain (4-6) Hospitalist Exam Vitals: Vital Signs (12 hours) Temp Pulse Resp BP Pulse Ox 04/26/20 04:00 98.5 F 80 20 116/66 97 04/25/20 23:00 98.0 F 95 14 132/81 97 04/25/20 21:00 100.0 F H 126 H 19 138/66 95 Weight Weight 210 lb 14.4 oz General Appearance: awake alert Neck: no JVD Heart: RRR, no murmur Respiratory: CTAB Gastrointestinal: soft, normal bowel sounds Extremities: 2+ LE edema Hosp A/P (1) Dzmzh-tr-fcpyyar kidney injury Code(s): N17.9 - ACUTE KIDNEY FAILURE, UNSPECIFIED; N18.9 - CHRONIC KIDNEY DISEASE, UNSPECIFIED Status: Acute Qualifiers: Acute renal failure type: unspecified Chronic kidney disease stage: stage 3 (moderate) (2) Hypernatremia Code(s): E87.0 - HYPEROSMOLALITY AND HYPERNATREMIA Status: Acute (3) Urinary retention Code(s): R33.9 - RETENTION OF URINE, UNSPECIFIED Status: Acute (4) Atrial fibrillation with RVR Code(s): I48.91 - UNSPECIFIED ATRIAL FIBRILLATION Status: Chronic (5) Chronic anticoagulation Code(s): 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 OF ANTICOAGULANTS Status: Chronic (6) DM type 2 (diabetes mellitus, type 2) Status: Chronic Qualifiers: 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 insulin 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: without terminal superintendent use Diabetes mellitus complication status: with neurologic complications Diabetes mellitus complication detail: with polyneuropathy Qualified Code(s): E11.42 - Type 2 diabetes mellitus with diabetic polyneuropathy (7) HTN (hypertension) Code(s): I10 - ESSENTIAL (PRIMARY) HYPERTENSION Status: Chronic Qualifiers: Hypertension type: essential hypertension Qualified Code(s): I10 - Essential (primary) hypertension - Plan renal fcn mildly improved speech therapy approved for po intake- DC iv b-abilio, institute po cont antihypertensives on iv amiodarone per cardiology
--- NOTE | 2020-04-26 12:41 | PRG ---
DATE OF SERVICE: SUBJECTIVE: A 74-year-old gentleman being seen for acute kidney injury. The patient denied nausea, vomiting, or chest pain. PHYSICAL EXAMINATION: General: The patient is awake and alert. Vital Signs: Afebrile, pulse 78, breathing at 16, blood pressure 138/76. HEENT: Head normocephalic and atraumatic. Eyes intact, no ulcers. Nose intact, no ulcers. Ears intact, no ulcers. Neck: Supple. No JVD. Chest: Symmetrical and clear. Cardiovascular: Shows S1 and S2, no rub, no murmur. Gastrointestinal: Abdomen is soft, bowel sounds positive. Extremities: Show no edema or ulcers. Skin: Shows no rash or petechiae. Musculoskeletal: Shows no joint swelling or stiffness. Genitourinary: Shows no Velasquez or CVA tenderness. Neurologic: Motor intact. Cranial nerves intact. LABORATORY DATA: Reviewed. ASSESSMENT AND PLAN: 1. Stage 3 chronic kidney disease, stable. 2. Acute kidney injury, stable. 3. Hypokalemia, recommend potassium replacement. 4. Anemia, stable. 5. Medication based on GFR appropriate. Job ID: [id number]
--- NOTE | 2020-04-26 13:55 | PRG ---
DATE OF SERVICE: 04/26/2020 SUBJECTIVE: Andrae Werner is doing well today. Dr. Posey has removed his drain over the weekend while he was covering for me. The patient remains afebrile. He did develop atrial fibrillation with RVR, had to be transferred to telemetry. Dr. Barber is seeing him. Echocardiogram obtained. OBJECTIVE: VITAL SIGNS: Currently, 97.4 degrees, 83, 140/67. GENERAL: The patient awakens. reports that the patient has become very sleepy over the weekend. She attributes this possibly to Ultram. LUNGS: Clear to auscultation. CARDIAC: Regular rate and rhythm. No murmur or gallop. ABDOMEN: Soft. LABORATORY DATA: White count 12 and hemoglobin 8.9. Basic metabolic profile normal. BUN 21, creatinine 1.7. ASSESSMENT AND PLAN: 1. Chronic kidney disease, followed by Dr. Martinez. Renal function was improved. He suffered acute kidney injury secondary to severe dehydration on admission. 2. Congestive heart failure. 3. Severe acute cholecystitis, status post laparoscopic cholecystectomy. 4. Chronic anticoagulation. The patient can resume his Eliquis at any time. Cardiology is working with him with his atrial fibrillation. Pathology of gallbladder reveals acute extensively ulcerated necrotic cholecystitis, cholelithiasis. 5. Resume anticoagulation per Cardiology. 6. Deconditioning. Planned rehab as the patient's cannot care for him at home. He will need further strengthening before going home. Job ID: [id number]
[2020-04-26] MEDS: Melatonin 3 MG TAB PO SCH (22:32)
[2020-04-26] MEDS: Atorvastatin Calcium 20 MG TAB PO SCH (22:32)
[2020-04-27] MEDS: Levothyroxine Sodium 25 MCG TAB PO SCH (05:37)
--- NOTE | 2020-04-27 07:48 | RAD ---
ONE VIEW ABDOMEN: HISTORY: Abdominal distention. FINDINGS: Multiple air-filled loops of colon and small bowel are identified. There is a suture chain and surgic al clips in the right hemiabdomen. There is air attenuation down to the level of the rectum. Correlate for possible ileus. IMPRESSION: Possible ileus. Transcribed Date/Time: 04/27/2020 8:01 AM
--- NOTE | 2020-04-27 07:51 | RAD ---
Exam: Chest one view HISTORY:Hypoxia Comparison: 04/23/2020 FINDINGS: Cardiac silhouette:Normal cardiac silhouette. Aorta: Unremarkable Pulmonary vessels: Normal Costophrenic angles: Clear Lines and tubes: Stable left-sided subclavian vascular catheter LUNGS: No masses or consolidation. Pneumothorax: None Osseous abnormalities: None IMPRESSION: No acute cardiopulmonary process.
--- NOTE | 2020-04-27 08:17 | CT ---
PRELIMINARY REPORT/[facility]/EMERGENCY AFTER HOURS PROCEDURE: CT abdomen and pelvis without contrast: Comparison: 04/20/2020 Indication: [id number], POSSIBLE SBO SEEN ON XRAY, TENDER ABD, HX OF GI OBSTRUCTION, LAP JEFRY ON 04/22/20 Findings: At least small bilateral pleural effusions. Confluent density in the dependent lungs. Cardi omegaly and coronary artery calcification. Atherosclerosis. No aortic aneurysm. No hydronephrosis or symptomatic urinary calculus. The gallbladder is absent. No biliary obstruction. Gas and fluid collection in the gallbladder fossa is poorly delineated without contrast. This measure s approximately 6.5 x 4.6 cm. There is less well-defined small volume fluid in the right upper outer and surrounding edema. Small volume fluid in the left paracolic gutter. Dilated loops of small bowel measuring 4.5 cm. Prior right hemicolectomy. The colon is mildly distended and is fluid-filled. The u rinary bladder is mostly collapsed around a Velasquez catheter. Impression: Gas and fluid collection in the gallbladder fossa could be benign related to recent surge ry. Phlegmon and/or abscess. It is possible. Small volume free fluid. Correlate clinically for infect ion. Fluid-filled colon and small bowel with small bowel dilatation. This is most likely functional. Atelectasis or pneumonia in the lung bases. Small bilateral pleural effusion. ELECTRONICALLY SIGNED BY: Sanjeev Romero MD Apr 27, 2020 1:31:34 AM IT INVESTMENT/PORTFOLIO MANAGER FINAL REPORT EMERGENT AFTER HOURS CT OF THE ABDOMEN AND PELVIS WITHOUT CONTRAST: COMPARISON: 04/20/2020. FINDINGS/IMPRESSION: I agree with the findings and impression given in the preliminary report per [facility] physici an. 1. There are dilated small bowel loops. This may be secondary to postoperative ileus or small bowel obstruction. 2. Air and clips in the gallbladder fossa are related to recent surgery. POS: SHAI
[2020-04-27 11:49] LABS: #Eosinphils 0.2 thou/uL (0.0-0.7); #Lymphocytes 1.5 thou/uL (1.20-3.40); #Monocytes 0.5 thou/uL (0.11-0.59); %Basophils 0.2 % (0.0-1.0); %Eosinophils 1.6 % (0.0-10.0); %Monocytes 3.8 % (0.0-10.0); %Neutrophils 83.4 % (42.0-75.0); Hemoglobin 8.8 g/dL (14.0-18.0); Mean Corpuscular HGB CONC 32.5 g/dL (32.0-36.0); Mean Corpuscular Hemoglobin 30.4 pg (27.0-31.0); Mean Corpuscular Volume 93.6 fL (78.0-98.0); Mean Platelet Volume 8.4 fL (7.4-10.4); Platelet Count 281 thou/uL (130-400); RBC Distribution Width 11.9 % (11.5-14.5); Red Blood Cell (RBC) Count 2.89 mill/uL (4.70-6.10); White Blood Cell (WBC) Count 13.2 thou/uL (4.8-10.8)
[2020-04-27 12:16] LABS: ALT (SGPT) 74 U/L (8-55); AST (SGOT) 107 U/L (5-34); Albumin 2.5 g/dL (3.4-4.8); Alkaline Phosphatase 688 U/L (40-110); Anion Gap 13 mmol/L (10-20); BUN (Urea Nitrogen) 18 mg/dL (8.4-25.7); Bilirubin, Total 0.8 mg/dL (0.2-1.2); Calc. Creatinine Clearance 58 mL/min (70-130); Calcium 7.5 mg/dL (7.8-10.44); Carbon Dioxide 22 mmol/L (23-31); Chloride 112 mmol/L (98-107); Glucose 138 mg/dL (83-110); Protein, Total 5.5 g/dL (5.8-8.1); Sodium 144 mmol/L (136-145)
[2020-04-27 12:21] LABS: Potassium 2.8 mmol/L (3.5-5.1)
--- NOTE | 2020-04-27 12:32 | PDOC.HOSPP ---
- Subjective Encounter Date: 04/27/20 Encounter Time: 12:28 Subjective: no complaint, eating well - Objective Vital Signs & Weight: Vital Signs (12 hours) Temp Pulse Pulse Resp BP BP Pulse Ox 04/27/20 10:51 99.9 F H 108 H 18 151/90 H 100 04/27/20 09:16 92 162/123 H 04/27/20 07:35 98.4 F 104 H 20 137/82 100 04/27/20 03:37 98.3 F 96 16 126/62 100 Pulse Ox 04/27/20 10:51 04/27/20 09:16 100 04/27/20 07:35 04/27/20 03:37 Weight Weight 210 lb 14.4 oz I&O: 04/26/20 04/27/20 04/28/20 06:59 06:59 06:59 Intake Total 912 Output Total 450 Balance 462 Result Diagrams: 04/27/20 11:39 04/27/20 11:39 Additional Labs: Accuchecks 04/27/20 04/27/20 04/26/20 10:51 05:35 20:19 POC Glucose 124 H 121 H 129 H 04/26/20 15:56 POC Glucose 132 H Radiology Reviewed by me: Yes (CXR no infiltrate , CHF. cardiomegaly) Hospitalist ROS - Medication Medications: Active Medications Generic Name Dose Route Start Last Admin Trade Name Freq PRN Reason Stop Dose Admin Acetaminophen 1,000 mg 04/21/20 15:10 04/25/20 19:57 Acetaminophen 500 Mg Tab PO 1,000 mg Q6H PRN Administration Moderate to Severe Pain (6-10) Amoxicillin/Clavulanate Potassium 500 mg 04/23/20 21:00 04/26/20 22:31 Amoxicillin/Potassium Clav 500 Mg Tab PO 500 mg Q12HR KATHYA Administration Apixaban 5 mg 04/24/20 21:00 04/26/20 22:32 Apixaban 5 Mg Tab PO 5 mg BID KATHYA Administration Aspirin 81 mg 04/21/20 09:00 04/26/20 08:07 Aspirin 81 Mg Enteric Coated Tablet PO 81 mg DAILY KATHYA Administration Atorvastatin Calcium 20 mg 04/21/20 21:00 04/26/20 22:32 Atorvastatin Calcium 20 Mg Tab PO 20 mg HS KATHYA Administration Fluoxetine HCl 40 mg 04/24/20 09:00 04/26/20 08:06 Fluoxetine Hcl 20 Mg Cap PO 40 mg DAILY KATHYA Administration Gabapentin 300 mg 04/23/20 21:00 04/26/20 22:31 Gabapentin 300 Mg Cap PO 300 mg TID KATHYA Administration Isosorbide Mononitrate 30 mg 04/21/20 09:00 04/26/20 08:07 Isosorbide Mononitrate Er 30 Mg Tab PO 30 mg DAILY KATHYA Administration Levothyroxine Sodium 25 mcg 04/24/20 06:00 04/27/20 05:37 Levothyroxine Sodium 25 Mcg Tab PO 25 mcg 0600 KATHYA Administration Melatonin 3 mg 04/20/20 21:00 04/26/20 22:32 Melatonin 3 Mg Tab PO 3 mg HS KATHYA Administration Pantoprazole Sodium 40 mg 04/24/20 09:00 04/26/20 08:07 Pantoprazole 40 Mg Tab PO 40 mg DAILY KATHYA Administration Sodium Chloride 10 ml 04/20/20 15:21 04/26/20 22:32 Flush - Normal Saline 10 Ml Syringe IVF 10 ml PRN PRN Administration Saline Flush Tamsulosin HCl 0.4 mg 04/21/20 09:00 04/26/20 08:07 Tamsulosin Hcl 0.4 Mg Cap PO 0.4 mg DAILY KATHYA Administration Tramadol HCl 50 mg 04/21/20 15:10 04/23/20 16:05 Tramadol Hcl 50 Mg Tab PO 50 mg Q4H PRN Administration Moderate Pain (4-6) Hospitalist Exam Vitals: Vital Signs (12 hours) Temp Pulse Pulse Resp BP BP Pulse Ox 04/27/20 10:51 99.9 F H 108 H 18 151/90 H 100 04/27/20 09:16 92 162/123 H 04/27/20 07:35 98.4 F 104 H 20 137/82 100 04/27/20 03:37 98.3 F 96 16 126/62 100 Pulse Ox 04/27/20 10:51 04/27/20 09:16 100 04/27/20 07:35 04/27/20 03:37 Weight Weight 210 lb 14.4 oz Hosp A/P (1) [id number] kidney injury Code(s): N17.9 - ACUTE KIDNEY FAILURE, UNSPECIFIED; N18.9 - CHRONIC KIDNEY DISEASE, UNSPECIFIED Status: Acute Qualifiers: Acute renal failure type: unspecified Chronic kidney disease stage: stage 3 (moderate) (2) Hypernatremia Code(s): E87.0 - HYPEROSMOLALITY AND HYPERNATREMIA Status: Acute (3) Urinary retention Code(s): R33.9 - RETENTION OF URINE, UNSPECIFIED Status: Acute (4) Atrial fibrillation with RVR Code(s): I48.91 - UNSPECIFIED ATRIAL FIBRILLATION Status: Chronic (5) Chronic anticoagulation Code(s): Z79.01 - DETENTION (CURRENT) USE OF ANTICOAGULANTS Status: Chronic (6) DM type 2 (diabetes mellitus, type 2) Status: Chronic Qualifiers: Diabetes mellitus snf insulin use: without intermediate 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
[2020-04-27] MEDS ORDERED: Potassium Chloride 20 MEQ TAB PO SCH ×2 (12:45→17:00)
[2020-04-27] MEDS: Gabapentin 300 MG CAP PO SCH ×2 (13:05→16:34)
[2020-04-27] MEDS: Amoxicillin/Potassium Clav 500 MG TAB PO SCH (13:06)
[2020-04-27] MEDS: Apixaban 5 MG TAB PO SCH (13:07)
[2020-04-27] MEDS: Aspirin 81 mg Enteric Coated Tablet PO SCH (13:08)
[2020-04-27] MEDS: FLUoxetine HCl 20 MG CAP PO SCH (13:08)
[2020-04-27] MEDS: Tamsulosin HCl 0.4 MG CAP PO SCH (13:09)
--- NOTE | 2020-04-27 13:45 | DIS ---
DATE OF ADMISSION: 04/20/2020 DATE OF DISCHARGE: 04/27/2020 Discharged to the [facility]. PRIMARY CARE PROVIDER: Dr. Mitchell Ritchie. FINAL DIAGNOSES: Acute cholecystitis, acute kidney injury, hypertension, urinary retention, chronic kidney disease, diabetes mellitus type 2 with chronic kidney disease stage 3, atrial fibrillation, cardiomyopathy, dyslipidemia, chronic anticoagulation. DISCHARGE MEDICATIONS: 2. Potassium chloride one twice a day. 3. Levothyroxine 25 mcg a day. 4. Furosemide 20 mg a day. 5. Pioglitazone 30 mg a day. 6. Protonix 40 mg a day. 7. Gabapentin 100 mg three times a day. 8. Fluoxetine 20 mg a day. 9. Zocor 40 mg a day. 10. Flomax 0.4 mg a day. 11. Melatonin 3 mg at bedtime. 12. Imdur 30 mg a day. 13. Tramadol 50 mg p.o. q.i.d. p.r.n. 14. Coreg 12.5 mg p.o. b.i.d. 15. Aspirin 81 mg p.o. daily. 16. Eliquis is changed to 5 mg p.o. b.i.d. 17. Augmentin 500 mg p.o. q.12 hours. ALLERGIES: NONE. CODE STATUS: Full. PENDING AT TIME OF DISCHARGE: Nothing. DIET: Diabetic. CONSULTATIONS: 1. On 04/20/2020, Dr. Gallo Barber, Cardiology. 2. On 04/21/2020, Dr. Kris Castellon, General Surgery. 3. On 04/22/2020, Dr. Eduardo Martinez, Nephrology. PROCEDURES: On 04/22/2020, laparoscopic video cholecystectomy per Dr. Castellon. Pathology specimen, acute extensively ulcerated necrotic cholecystitis with cholelithiasis. ADMITTING LABORATORY DATA: White count 15.0, hemoglobin 11.5, platelet count 110,000. Chemistries; sodium 139, potassium 3.5, creatinine 2.36, BUN 36, blood sugar 120. Troponins were elevated but flat at 0.08, 0.07. BNP was mildly elevated at 382. The patient was COVID and Influenza negative. HOSPITAL COURSE: The patient presented with abdominal pain, persistent nausea and vomiting for days, pain in his right upper quadrant. He was admitted with acute cholecystitis, nausea, vomiting, diarrhea, elevated troponins, acute on chronic kidney failure, diabetes mellitus type 2. He underwent a cholecystectomy on 04/22/2020. When he saw him, Dr. Barber approved him for necessary surgery. Dr. Martinez saw him for renal insufficiency. He wanted to avoid GRANT inhibitors, which has been held. The patient was on lisinopril 40 mg a day. On 04/23/2020, the patient's only real complaint was weakness. His acute on chronic kidney disease had resolved with stable chronic kidney disease stage 3. He had urinary retention, has a Velasquez in. On 04/26, he was seen by myself with no complaints at all. The renal function was improved. He was on IV beta abilio at that time, was switched back over to the oral Coreg. 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 This has been discontinued. He is not on amiodarone anymore. Currently, he is doing well. PHYSICAL EXAMINATION: CHEST: Clear. HEART: Regular rate and rhythm. Vital Signs: Stable. His potassium was low this morning at 2.8 and he has received 40 mEq here. He has not been on his routine potassium replacement. His creatinine has dropped consistent with his chronic kidney disease, stage 3. His transaminase levels are still mildly elevated. Bilirubin is normal. On transfer to [facility], he will need his electrolytes monitored at least once a week as he has been hypokalemic here, has been restored. He will need continuing following of his diabetes and his basic metabolic profile for monitoring his renal function. He will need PT and OT. Follow up with Dr. Mitchell Ritchie post rehab stay. Job ID: [id number] MTDD
--- NOTE | 2020-04-27 14:34 | PRG ---
DATE OF SERVICE: 04/27/2020 SUBJECTIVE: Debbi is doing well today. For some reason, a CAT scan of abdomen was ordered yesterday, which was normal. Abdominal film was ordered yesterday, which was normal. I do not know who ordered these or for the reason. They did reveal postoperative changes in the gallbladder bed, expected changes, nothing that requires intervention. Potassium is 2.8. He has been given 40 of potassium. I have ordered another dose of potassium at 1800 hours. He is tolerating his diet. He has had a bowel movement. OBJECTIVE: LUNGS: Clear to auscultation. CARDIAC: Regular rate and rhythm without murmur or gallop. ABDOMEN: Soft, nontender. Surgical wounds well healed. VITAL SIGNS: Temperature 99.9 degrees, pulse 108, blood pressure 151/90. ASSESSMENT AND PLAN: Severe cholecystitis, necrotizing, status post laparoscopic cholecystectomy. Drain left in place, remove 3 days postoperatively. He should continue on Augmentin p.o. for another 5 to 6 days. He will be discharged to rehab for reconditioning. I have discussed with his and questions answered. Job ID: [id number]
--- NOTE | 2020-04-27 15:04 | PRG ---
DATE OF SERVICE: 04/27/2020 SUBJECTIVE: A 74-year-old gentleman being seen for acute kidney injury. Patient denies nausea, vomiting, or chest pain OBJECTIVE: General: The patient is awake and alert. VITAL SIGNS: Patient is afebrile. Pulse 74, breathing at 16, blood pressure 137/82. HEENT: Head normocephalic and atraumatic. Eyes intact, no ulcers. Nose intact, no ulcers. Ears intact, no ulcers. NECK: Supple. No JVD. CHEST: Symmetrical and clear. CARDIOVASCULAR: Shows S1 and S2, no rub, no murmur. GASTROINTESTINAL: Abdomen is soft, bowel sounds positive. EXTREMITIES: Show no edema or ulcers. SKIN: Shows no rash or petechiae. MUSCULOSKELETAL: Shows no joint swelling or stiffness. GENITOURINARY: Shows no Velasquez or CVA tenderness. NEUROLOGIC: Motor intact. Cranial nerves intact. LABORATORY DATA: Labs show hemoglobin 8.8, potassium is 2.8, creatinine 1.47. ASSESSMENT AND PLAN: 1. Acute kidney injury, improved. 2. Hypertension, stable. 3. Hypokalemia. Would recommend 40 mEq of potassium x1 dose and rechecking potassium again. 4. Anemia, stable. 5. Medication based on GFR appropriate. I will sign off on this patient please reconsult as needed. Job ID: [id number]
[2020-04-27 16:33] VITALS: TEMP 98.7
[2020-04-27] MEDS: Carvedilol 6.25 MG TAB PO SCH (16:42)
[2020-04-27 16:43] VITALS: BP 150/72
[2020-04-27] MEDS ORDERED: Carvedilol 6.25 MG TAB PO SCH (21:00)
--- NOTE | 2020-04-29 03:01 | PQF ---
CLINICAL DOCUMENTATION CLARIFICATION FORM: Dear : Wilmer Barroso Date / Time: 04/29/2020 0300 Please exercise your independent, professional judgment in responding to the clarification form. Clinical indicators are provided on the bottom of this form for your review Please check appropriate box(es): [ ] Sepsis due to Acute Cholecystitis [ ] Severe sepsis due to Acute Cholecystitis with Acute Kidney injury without ATN [ ] Severe sepsis due to Acute Cholecystitis with Acute Kidney injury with ATN [ ] Localized infection without sepsis [ ] Other diagnosis [ ] Unable to determine Physician Signature: Date/Time: For continuity of documentation, please document condition throughout progress notes and discharge summary. Thank You. To be completed by CDI/Coding staff for physician review: Present Clinical Indicators - Signs / Symptoms / Labs Results and Location in Medical Record [x] WBC 15.0, Plt count 110, Neutrophils 66, Band 21, Lactic acid 1.6 Laboratory, Hematology 04/21 [x] BP 105/50, Pulse 71, Resp 14, Temp 98.5 Vital signs 04/20 [x] Presenting with Right sided abdominal pain, vomiting and fevers ED notes p9 04/20 [x] Leukocytosis, Sepsis, Acute renal insufficiency ED notes p9 04/20 [x] Acute cholecystitis H&P p5 04/20 Dr Castellon [x] Acute kidney injury H&P p5 04/20 Dr Castellon [x] Glucose 120, 106, 92, 127, 127, 131, 118, 149, 121, 149, 131, 138 Laboratory, Chemistry 04/20 04/27 [x] Patient Hypotensive 80/40s despite increasing IV fluids Event note p1 04/23 JEYSON Dos Santos Present Risk Factors Results and Location in Medical Record [x] 74 year-old Male H&P p1 04/20 Dr Castellon [x] DM H&P p1 04/20 Dr Castellon [x] HTN H&P p1 04/20 Dr Castellon [x] Obesity H&P p1 04/20 Dr Castellon [x] Acute cholecystitis H&P p5 04/20 Dr Castellon Present Treatments Results and Location in Medical Record [x] IVF NS 1L MAY 18 [x] IV Zosyn 4.5 gm MAY 18 [x] IV Augmentin 500 mg oral MAY 18 [x] Lap Cholecystectomy Operative report Dr Castellon 04/22 CDS/Supervisor Assembly Department Signature: Bailey Beverly Phone #: [phone] Date/Time: 04/29/20 This is a permanent part of the Medical Record [facility]
--- NOTE | 2020-04-30 13:55 | EKG ---
Test Reason : Blood Pressure : / mmHG Vent. Rate : 117 BPM Atrial Rate : 110 BPM P-R Int : 000 ms QRS Dur : 098 ms QT Int : 344 ms P-R-T Axes : 000 051 058 degrees QTc Int : 479 ms Atrial fibrillation with rapid ventricular response Nonspecific T wave abnormality Abnormal ECG When compared with ECG of 20-APR-2020 12:43, Atrial fibrillation has replaced Sinus rhythm Vent. rate has increased BY 55 BPM Criteria for Inferior infarct are no longer Present Confirmed by DR. Linette NIETO ([id number]) on 04/30/2020 1:55:26 PM Referred By: VERONIQUE Confirmed By:DR. Linette NIETO
== END 2020-04-27 18:00 | DRG 418 ==
LOC: ERS 12:21 → SURG B 15:21 → 2SW 04-25 00:19
PROVIDERS: ADMIT Specialist; ATTEND Internal Medicine
PROC: 0FT44ZZ Resection of Gallbladder, Percutaneous Endoscopic Approach (ICD-10-PCS; principal; 2020-04-22)
PROC: 02HV33Z Insertion of Infusion Device into Superior Vena Cava, Percutaneous Approach (ICD-10-PCS; 2020-04-22)
PROC: 0T9B70Z Drainage of Bladder with Drainage Device, Via Natural or Artificial Opening (ICD-10-PCS; 2020-04-23)
DX: K80.00 Calculus of gallbladder with acute cholecystitis without obstruction (principal); N17.9 Acute kidney failure, unspecified; I69.354 Hemiplegia and hemiparesis following cerebral infarction affecting left non-dominant side; E87.0 Hyperosmolality and hypernatremia; I42.9 Cardiomyopathy, unspecified; Z20.822 Contact with and (suspected) exposure to COVID-19; E11.22 Type 2 diabetes mellitus with diabetic chronic kidney disease; I25.10 Atherosclerotic heart disease of native coronary artery without angina pectoris; E78.5 Hyperlipidemia, unspecified; I48.0 Paroxysmal atrial fibrillation; E66.9 Obesity, unspecified; R77.8 Other specified abnormalities of plasma proteins; R19.7 Diarrhea, unspecified; D63.1 Anemia in chronic kidney disease; N18.30 Chronic kidney disease, stage 3 unspecified; I13.10 Hypertensive heart and chronic kidney disease without heart failure, with stage 1 through stage 4 chronic kidney disease, or unspecified chronic kidney disease; R79.89 Other specified abnormal findings of blood chemistry; E86.0 Dehydration; E83.42 Hypomagnesemia; E87.6 Hypokalemia; E88.09 Other disorders of plasma-protein metabolism, not elsewhere classified; I95.9 Hypotension, unspecified; R33.9 Retention of urine, unspecified; Z86.711 Personal history of pulmonary embolism; Z79.01 Long term (current) use of anticoagulants; Z86.718 Personal history of other venous thrombosis and embolism; I25.2 Old myocardial infarction; Z90.49 Acquired absence of other specified parts of digestive tract; Z79.890 Hormone replacement therapy; Z98.49 Cataract extraction status, unspecified eye; Z82.49 Family history of ischemic heart disease and other diseases of the circulatory system; Z79.899 Other long term (current) drug therapy; Z68.32 Body mass index [BMI] 32.0-32.9, adult
CPT/HCPCS: 0240U; 36415; 36416; 71045; 74018; 74176; 76705; 80053; 81003; 81015; 82553; 83605; 83690; 83735; 83880; 84443; 84484; 85025; 88304; 93005; 93010; 93306; 96365; 96375; C1751; J0171; J0282; J1650; J1940; J2370; J2405; J2543; J2704; J3010; J3475; J3480; J3490; J7050; J7070; J7120; P9047; S0020; S0028

== ENCOUNTER 2021-01-15 18:30 | Inpatient (IN) | payer MEDICARE, OTHER ==
[~2021-01-15 18:30] MED LIST changes: -Iopamidol 370 76% 100 ML VIAL ONE; +Iopamidol-370 76% 500 ML 1 ML ONE
[2021-01-15] MEDS ORDERED: Ondansetron PF 4 MG/2 ML Vial ONE (19:20)
[2021-01-15 19:22] LABS: Hemoglobin 10.7 g/dL (14.0-18.0); Mean Corpuscular HGB CONC 33.6 g/dL (32.0-36.0); Mean Corpuscular Hemoglobin 32.2 pg (27.0-31.0); Mean Corpuscular Volume 95.8 fL (78.0-98.0); Mean Platelet Volume 11.3 fL (7.4-10.4); Platelet Count 84 thou/uL (130-400); RBC Distribution Width 12.5 % (11.5-14.5); Red Blood Cell (RBC) Count 3.33 mill/uL (4.70-6.10); White Blood Cell (WBC) Count 9.8 thou/uL (4.8-10.8)
[2021-01-15 19:36] LABS: Band 6 % (5-11); Lymphocytes 6 % (21-51); MDiff Complete? YES; Monocytes 3 % (0-10); Neutrophil 85 % (42-75); Ovalocytes SLIGHT = 2-5 cells (100X) (0-1/hpf); Platelet Morphology Comment Appears Decreased; Polychromasia SLIGHT = 2-3 cells (100X) (0-2/hpf)
[2021-01-15 19:44] LABS: ALT (SGPT) 123 U/L (8-55); AST (SGOT) 78 U/L (5-34); Albumin 3.4 g/dL (3.4-4.8); Alkaline Phosphatase 216 U/L (40-110); Anion Gap 17 mmol/L (10-20); BUN (Urea Nitrogen) 25 mg/dL (8.4-25.7); Bilirubin, Total 6.2 mg/dL (0.2-1.2); Calc. Creatinine Clearance 0 mL/min (70-130); Calcium 8.1 mg/dL (7.8-10.44); Carbon Dioxide 19 mmol/L (23-31); Chloride 108 mmol/L (98-107); Globulin 2.9 g/dL (2.4-3.5); Glucose 141 mg/dL (83-110); Lipase 13 U/L (8-78); Potassium 3.7 mmol/L (3.5-5.1); Protein, Total 6.3 g/dL (5.8-8.1); Sodium 140 mmol/L (136-145)
[2021-01-15 19:57] LABS: Bilirubin 2+ (Negative); Blood, Urine 2+ (Negative); Clarity Turbid (Clear); Glucose, Urine (Dipstick) Normal (Negative); Ketone, Urine Negative (Negative); Leukocyte Negative Leu/uL (Negative); Mucous/LPF Rare LPF (<2+); Nitrite Negative (Negative); Protein, Urine (Dipstick) 100 mg/dL (Neg-Trace); Renal Epithelial 0-3 HPF (None Seen); Squamous Epithelial 0-3 HPF (0-3)
[2021-01-15 20:03] LABS: WBC/HPF 0-3 HPF (0-3)
[2021-01-15 20:04] LABS: Bacteria/HPF 2+ HPF (None Seen)
[2021-01-15 20:05] LABS: CKMB 0.8 ng/mL (0-6.6)
[2021-01-15 20:44] LABS: INR-International Normal Ratio 1.9; PTT 40.1 sec (22.9-36.1); Prothrombin Time 21.9 sec (12.0-14.7)
[2021-01-15] MEDS ORDERED: Piperacillin/Tazobactam 4.5 GM VIAL ONE (21:28)
[2021-01-15] MEDS ORDERED: Morphine 4 MG/ML VIAL ONE (21:28)
[2021-01-15] MEDS ORDERED: HumaLOG 300 UNITS/3 ML VIAL SC PRN ×2 (21:38)
[2021-01-15] MEDS ORDERED: Dextrose 50% Abboject 50 ML SYRINGE SLOW IVP PRN (21:38)
[2021-01-15] MEDS ORDERED: Dextrose 5% in Water 1,000 ML IV PRN (21:38)
[2021-01-15] MEDS ORDERED: Acetaminophen 500 MG TAB PO PRN (21:40)
[2021-01-15] MEDS ORDERED: Sodium Chloride 0.9% (PF) 10 ML VIAL FS PRN (21:45)
[2021-01-15 22:19] LABS: Lactic Acid 1.8 mmol/L (0.5-2.2)
[2021-01-15 22:27] LABS: Troponin I 0.078 ng/mL (< 0.028)
[2021-01-15] MEDS ORDERED: Morphine 4 MG/ML VIAL SLOW IVP PRN (23:32)
[2021-01-16] MEDS: Sodium Chloride 0.9% 1,000 ML IV SCH ×2 (00:13→17:21)
[2021-01-16 01:41] LABS: Troponin I 0.066 ng/mL (< 0.028)
[2021-01-16] MEDS: Piperacillin/Tazobactam 3.375 GM in Sodium Chloride 0.9% 100 ML IVPB SCH ×3 (02:01→18:10)
[2021-01-16 05:13] LABS: #Eosinphils 0.1 thou/uL (0.0-0.7); #Lymphocytes 0.9 thou/uL (1.20-3.40); #Monocytes 0.6 thou/uL (0.11-0.59); #Neutrophils 5.6 thou/uL (1.40-6.50); %Basophils 0.2 % (0.0-1.0); %Eosinophils 0.8 % (0.0-10.0); %Lymphocytes 12.9 % (21.0-51.0); %Monocytes 7.7 % (0.0-10.0); %Neutrophils 78.4 % (42.0-75.0); Hemoglobin 10.1 g/dL (14.0-18.0); Mean Corpuscular HGB CONC 33.4 g/dL (32.0-36.0); Mean Corpuscular Hemoglobin 32.5 pg (27.0-31.0); Mean Corpuscular Volume 97.2 fL (78.0-98.0); Mean Platelet Volume 11.3 fL (7.4-10.4); Platelet Count 76 thou/uL (130-400); RBC Distribution Width 12.8 % (11.5-14.5); White Blood Cell (WBC) Count 7.1 thou/uL (4.8-10.8)
[2021-01-16] MEDS: Levothyroxine Sodium 25 MCG TAB PO SCH (05:23)
[2021-01-16 05:54] LABS: ALT (SGPT) 96 U/L (8-55); AST (SGOT) 60 U/L (5-34); Albumin 2.8 g/dL (3.4-4.8); Alkaline Phosphatase 166 U/L (40-110); Anion Gap 11 mmol/L (10-20); BUN (Urea Nitrogen) 24 mg/dL (8.4-25.7); Bilirubin, Total 5.1 mg/dL (0.2-1.2); Calc. Creatinine Clearance 51 mL/min (70-130); Calcium 7.6 mg/dL (7.8-10.44); Carbon Dioxide 23 mmol/L (23-31); Chloride 111 mmol/L (98-107); Globulin 2.2 g/dL (2.4-3.5); Glucose 100 mg/dL (83-110); Potassium 3.7 mmol/L (3.5-5.1); Sodium 141 mmol/L (136-145)
[2021-01-16] MEDS: FLUoxetine HCl 20 MG CAP PO SCH (08:51)
[2021-01-16] MEDS: Pantoprazole 40 MG VIAL IVP SCH (08:52)
[2021-01-16] MEDS: Carvedilol 6.25 MG TAB PO SCH ×2 (08:52→21:17)
[2021-01-16 16:52] LABS: SARS-CoV-2 PCR by NAA Not Detected (NotDetected)
[2021-01-16] MEDS: Tamsulosin HCl 0.4 MG CAP PO SCH (21:17)
[2021-01-17] MEDS: Piperacillin/Tazobactam 3.375 GM in Sodium Chloride 0.9% 100 ML IVPB SCH ×3 (01:51→19:09)
[2021-01-17 05:08] LABS: #Eosinphils 0.2 thou/uL (0.0-0.7); #Lymphocytes 1.3 thou/uL (1.20-3.40); #Monocytes 0.7 thou/uL (0.11-0.59); %Basophils 0.1 % (0.0-1.0); %Eosinophils 3.1 % (0.0-10.0); %Lymphocytes 18.1 % (21.0-51.0); %Monocytes 9.4 % (0.0-10.0); %Neutrophils 69.4 % (42.0-75.0); Hemoglobin 9.7 g/dL (14.0-18.0); Mean Corpuscular HGB CONC 33.8 g/dL (32.0-36.0); Mean Corpuscular Hemoglobin 32.6 pg (27.0-31.0); Mean Corpuscular Volume 96.2 fL (78.0-98.0); Mean Platelet Volume 10.8 fL (7.4-10.4); Platelet Count 97 thou/uL (130-400); RBC Distribution Width 12.7 % (11.5-14.5); Red Blood Cell (RBC) Count 2.99 mill/uL (4.70-6.10); White Blood Cell (WBC) Count 7.1 thou/uL (4.8-10.8)
[2021-01-17 05:25] LABS: ALT (SGPT) 75 U/L (8-55); AST (SGOT) 43 U/L (5-34); Albumin 2.6 g/dL (3.4-4.8); Alkaline Phosphatase 202 U/L (40-110); Anion Gap 13 mmol/L (10-20); BUN (Urea Nitrogen) 21 mg/dL (8.4-25.7); Bilirubin, Total 3.9 mg/dL (0.2-1.2); Calc. Creatinine Clearance 49 mL/min (70-130); Calcium 7.2 mg/dL (7.8-10.44); Carbon Dioxide 21 mmol/L (23-31); Chloride 113 mmol/L (98-107); Globulin 2.3 g/dL (2.4-3.5); Glucose 69 mg/dL (83-110); Potassium 3.5 mmol/L (3.5-5.1); Protein, Total 4.9 g/dL (5.8-8.1); Sodium 143 mmol/L (136-145)
[2021-01-17 05:43] LABS: HBCM Index 0.09 S/CO (0-0.79); HBSAB Concentration Less than 8.00 mIU/mL; HBSAg Index 0.23 S/CO (0-0.99); Hep B Core Total Ab Non-Reactive (NonReactive); Hep B Core Total Index 0.08 S/CO (0-0.79); Hep B Surf AB Non-Reactive (NonReactive); Hep B Surf Ag Non-Reactive S/CO (NonReactive); Hep C IgG Ab Non-Reactive (NonReactive); Hepatitis B Core IgM Abs Non-Reactive (NonReactive)
[2021-01-17] MEDS: Levothyroxine Sodium 25 MCG TAB PO SCH (05:43)
[2021-01-17] MEDS ORDERED: D5 1/2 NS 500 ML IV SCH (07:45)
[2021-01-17] MEDS: FLUoxetine HCl 20 MG CAP PO SCH (09:38)
[2021-01-17] MEDS: Pantoprazole 40 MG VIAL IVP SCH (09:39)
[2021-01-17] MEDS: Carvedilol 6.25 MG TAB PO SCH ×2 (09:39→20:56)
[2021-01-17] MEDS ORDERED: Iothalamate Meglumine 60% 50 ML VIAL FS ONE (12:08)
[2021-01-17] MEDS ORDERED: Indomethacin 50 MG SUPP ONE (12:09)
[2021-01-17] MEDS ORDERED: Fentanyl 100 MCG/2 ML VIAL ONE (12:18)
[2021-01-17] MEDS ORDERED: Glycopyrrolate 0.2 MG/ML 5 ML SYRINGE ONE (12:31)
[2021-01-17] MEDS ORDERED: Lidocaine 1% PF 5 ML VIAL ONE (12:31)
[2021-01-17] MEDS ORDERED: Ondansetron PF 4 MG/2 ML Vial ONE (12:31)
[2021-01-17] MEDS ORDERED: Rocuronium Bromide 10 MG/ML (10ML VIAL) ONE (12:31)
[2021-01-17] MEDS ORDERED: PROPOFOL 200 MG/20 ML VIAL ONE (12:31)
[2021-01-17] MEDS ORDERED: Dexamethasone 20 MG/5 ML VIAL ONE (12:31)
[2021-01-17] MEDS: Tamsulosin HCl 0.4 MG CAP PO SCH (20:56)
[2021-01-18] MEDS: Piperacillin/Tazobactam 3.375 GM in Sodium Chloride 0.9% 100 ML IVPB SCH ×2 (02:53→09:40)
[2021-01-18] MEDS: Levothyroxine Sodium 25 MCG TAB PO SCH (05:17)
[2021-01-18 05:21] LABS: #Basophils 0.1 thou/uL (0.0-0.2); #Lymphocytes 0.6 thou/uL (1.20-3.40); #Monocytes 0.2 thou/uL (0.11-0.59); #Neutrophils 4.5 thou/uL (1.40-6.50); %Basophils 1.8 % (0.0-1.0); %Eosinophils 0.2 % (0.0-10.0); %Lymphocytes 10.4 % (21.0-51.0); %Monocytes 4.2 % (0.0-10.0); %Neutrophils 83.5 % (42.0-75.0); Hemoglobin 9.7 g/dL (14.0-18.0); Mean Corpuscular HGB CONC 32.6 g/dL (32.0-36.0); Mean Corpuscular Hemoglobin 31.8 pg (27.0-31.0); Mean Corpuscular Volume 97.5 fL (78.0-98.0); Mean Platelet Volume 10.3 fL (7.4-10.4); Platelet Count 120 thou/uL (130-400); RBC Distribution Width 12.7 % (11.5-14.5); Red Blood Cell (RBC) Count 3.04 mill/uL (4.70-6.10); White Blood Cell (WBC) Count 5.4 thou/uL (4.8-10.8)
[2021-01-18 06:04] LABS: ALT (SGPT) 61 U/L (8-55); AST (SGOT) 27 U/L (5-34); Albumin 2.8 g/dL (3.4-4.8); Alkaline Phosphatase 204 U/L (40-110); Anion Gap 15 mmol/L (10-20); BUN (Urea Nitrogen) 23 mg/dL (8.4-25.7); Bilirubin, Total 2.8 mg/dL (0.2-1.2); Calc. Creatinine Clearance 40 mL/min (70-130); Calcium 7.4 mg/dL (7.8-10.44); Carbon Dioxide 20 mmol/L (23-31); Chloride 110 mmol/L (98-107); Globulin 2.3 g/dL (2.4-3.5); Glucose 145 mg/dL (83-110); Potassium 3.7 mmol/L (3.5-5.1); Protein, Total 5.1 g/dL (5.8-8.1); Sodium 141 mmol/L (136-145)
[2021-01-18] MEDS ORDERED: Sodium Chloride 0.9% 1,000 ML IV SCH (08:30)
[2021-01-18] MEDS: FLUoxetine HCl 20 MG CAP PO SCH (08:41)
[2021-01-18] MEDS: Carvedilol 6.25 MG TAB PO SCH ×2 (08:41→20:33)
[2021-01-18] MEDS: Pantoprazole 40 MG VIAL IVP SCH (08:42)
[2021-01-18] MEDS ORDERED: FLU VACC QS2021-22(65YR UP)/PF 240 MCG/0.7 ML SYRINGE IM ONE (09:00)
[2021-01-18 18:15] LABS: Bilirubin 1+ (Negative); Blood, Urine 2+ (Negative); Clarity Turbid (Clear); Glucose, Urine (Dipstick) Normal (Negative); Ketone, Urine Trace mg/dL (Negative); Leukocyte Negative Leu/uL (Negative); Nitrite Negative (Negative); Protein, Urine (Dipstick) 30 mg/dL (Neg-Trace); Specific Gravity, Urine 1.027 (1.002-1.036); Squamous Epithelial 0-3 HPF (0-3); Urobilinogen Normal mg/dL (Less than 2); pH, Urine 5.5 (5.0-9.0)
[2021-01-18 18:22] LABS: Bacteria/HPF 1+ HPF (None Seen); WBC/HPF 0-3 HPF (0-3)
[2021-01-18 18:23] LABS: Urine Culture Reflex Yes Yes
[2021-01-18] MEDS: Tamsulosin HCl 0.4 MG CAP PO SCH (20:33)
[2021-01-18] MEDS: Ondansetron PF 4 MG/2 ML Vial IVP PRN (20:33)
[2021-01-18] MEDS: Apixaban 5 MG TAB PO SCH (20:34)
[2021-01-19 05:02] LABS: ALT (SGPT) 57 U/L (8-55); AST (SGOT) 29 U/L (5-34); Albumin 3.1 g/dL (3.4-4.8); Alkaline Phosphatase 197 U/L (40-110); Anion Gap 16 mmol/L (10-20); BUN (Urea Nitrogen) 28 mg/dL (8.4-25.7); Bilirubin, Total 2.7 mg/dL (0.2-1.2); Calc. Creatinine Clearance 38 mL/min (70-130); Calcium 7.9 mg/dL (7.8-10.44); Carbon Dioxide 20 mmol/L (23-31); Chloride 110 mmol/L (98-107); Globulin 2.7 g/dL (2.4-3.5); Glucose 106 mg/dL (83-110); Lipase 23 U/L (8-78); Potassium 3.4 mmol/L (3.5-5.1); Protein, Total 5.8 g/dL (5.8-8.1); Sodium 143 mmol/L (136-145)
[2021-01-19] MEDS: Ondansetron PF 4 MG/2 ML Vial IVP PRN ×2 (06:30→16:07)
[2021-01-19] MEDS: Pantoprazole 40 MG VIAL IVP SCH (08:57)
[2021-01-19] MEDS: Levothyroxine Sodium 25 MCG TAB PO SCH (11:25)
[2021-01-19] MEDS: Apixaban 5 MG TAB PO SCH ×2 (11:26→22:00)
[2021-01-19] MEDS: FLUoxetine HCl 20 MG CAP PO SCH (11:26)
[2021-01-19] MEDS: Carvedilol 6.25 MG TAB PO SCH ×2 (11:26→22:00)
[2021-01-19] MEDS: Potassium Chloride 20 MEQ TAB PO SCH (16:07)
[2021-01-19 17:34] LABS: #Eosinphils 0.2 thou/uL (0.0-0.7); #Lymphocytes 1.5 thou/uL (1.20-3.40); #Monocytes 0.6 thou/uL (0.11-0.59); #Neutrophils 6.3 thou/uL (1.40-6.50); %Basophils 0.1 % (0.0-1.0); %Eosinophils 2.9 % (0.0-10.0); %Lymphocytes 17.2 % (21.0-51.0); %Monocytes 6.9 % (0.0-10.0); %Neutrophils 72.9 % (42.0-75.0); Hemoglobin 10.5 g/dL (14.0-18.0); Mean Corpuscular HGB CONC 33.2 g/dL (32.0-36.0); Mean Corpuscular Hemoglobin 31.7 pg (27.0-31.0); Mean Corpuscular Volume 95.3 fL (78.0-98.0); Mean Platelet Volume 9.2 fL (7.4-10.4); Platelet Count 204 thou/uL (130-400); RBC Distribution Width 12.7 % (11.5-14.5); White Blood Cell (WBC) Count 8.7 thou/uL (4.8-10.8)
[2021-01-19 17:59] LABS: ALT (SGPT) 57 U/L (8-55); AST (SGOT) 31 U/L (5-34); Albumin 3.1 g/dL (3.4-4.8); Alkaline Phosphatase 198 U/L (40-110); Anion Gap 17 mmol/L (10-20); BUN (Urea Nitrogen) 27 mg/dL (8.4-25.7); Bilirubin, Total 2.5 mg/dL (0.2-1.2); Calc. Creatinine Clearance 41 mL/min (70-130); Calcium 7.9 mg/dL (7.8-10.44); Carbon Dioxide 18 mmol/L (23-31); Chloride 111 mmol/L (98-107); Globulin 2.7 g/dL (2.4-3.5); Glucose 106 mg/dL (83-110); Potassium 3.4 mmol/L (3.5-5.1); Protein, Total 5.8 g/dL (5.8-8.1); Sodium 143 mmol/L (136-145)
[2021-01-19] MEDS ORDERED: Sodium Chloride 0.9% 1,000 ML IV SCH (18:15)
[2021-01-19] MEDS: Atorvastatin Calcium 20 MG TAB PO SCH (22:00)
[2021-01-19] MEDS: Tamsulosin HCl 0.4 MG CAP PO SCH (22:00)
[2021-01-19] MEDS: Sacubitril 49 MG/Valsartan 51 MG TABLET PO SCH (22:00)
[2021-01-20] MEDS: hydrALAZINE 20 MG/ML VIAL SLOW IVP PRN (02:50)
[2021-01-20] MEDS: Levothyroxine Sodium 25 MCG TAB PO SCH (05:31)
[2021-01-20] MEDS: Pantoprazole 40 MG VIAL IVP SCH (07:56)
[2021-01-20] MEDS ORDERED: Pioglitazone HCl 15 MG TAB PO SCH (09:00)
[2021-01-20] MEDS: Potassium Chloride 20 MEQ TAB PO SCH (09:31)
[2021-01-20] MEDS: Apixaban 5 MG TAB PO SCH (09:32)
[2021-01-20] MEDS: FLUoxetine HCl 20 MG CAP PO SCH (09:32)
[2021-01-20] MEDS: Carvedilol 6.25 MG TAB PO SCH ×2 (09:32→20:14)
[2021-01-20] MEDS: Sacubitril 49 MG/Valsartan 51 MG TABLET PO SCH (09:33)
[2021-01-20 10:46] LABS: #Eosinphils 0.3 thou/uL (0.0-0.7); #Monocytes 0.5 thou/uL (0.11-0.59); #Neutrophils 9.1 thou/uL (1.40-6.50); %Basophils 0.3 % (0.0-1.0); %Eosinophils 2.6 % (0.0-10.0); %Lymphocytes 9.3 % (21.0-51.0); %Monocytes 4.3 % (0.0-10.0); %Neutrophils 83.6 % (42.0-75.0); Hemoglobin 10.7 g/dL (14.0-18.0); Mean Corpuscular HGB CONC 34.2 g/dL (32.0-36.0); Mean Corpuscular Hemoglobin 32.8 pg (27.0-31.0); Mean Corpuscular Volume 95.8 fL (78.0-98.0); Mean Platelet Volume 8.9 fL (7.4-10.4); Platelet Count 177 thou/uL (130-400); RBC Distribution Width 12.9 % (11.5-14.5); Red Blood Cell (RBC) Count 3.27 mill/uL (4.70-6.10); White Blood Cell (WBC) Count 10.9 thou/uL (4.8-10.8)
[2021-01-20 10:52] LABS: ALT (SGPT) 53 U/L (8-55); AST (SGOT) 28 U/L (5-34); Albumin 3.1 g/dL (3.4-4.8); Alkaline Phosphatase 173 U/L (40-110); Anion Gap 17 mmol/L (10-20); BUN (Urea Nitrogen) 22 mg/dL (8.4-25.7); Bilirubin, Total 2.5 mg/dL (0.2-1.2); Calc. Creatinine Clearance 49 mL/min (70-130); Calcium 7.9 mg/dL (7.8-10.44); Carbon Dioxide 18 mmol/L (23-31); Chloride 113 mmol/L (98-107); Globulin 2.7 g/dL (2.4-3.5); Glucose 112 mg/dL (83-110); Lipase 54 U/L (8-78); Potassium 3.3 mmol/L (3.5-5.1); Protein, Total 5.8 g/dL (5.8-8.1); Sodium 145 mmol/L (136-145)
[2021-01-20 17:03] LABS: Clarity Turbid (Clear); Glucose, Urine (Dipstick) Normal (Negative); Ketone, Urine 40 mg/dL (Negative); Leukocyte 75 Leu/uL (Negative); Nitrite Negative (Negative); Protein, Urine (Dipstick) 50 mg/dL (Neg-Trace); Specific Gravity, Urine 1.047 (1.002-1.036); Urobilinogen Normal mg/dL (Less than 2); pH, Urine 5.5 (5.0-9.0)
[2021-01-20 17:04] LABS: Bilirubin 1+ (Negative); Blood, Urine 3+ (Negative); RBC/HPF Greater than 50 HPF (0-3); Squamous Epithelial 0-3 HPF (0-3); WBC/HPF 21-50 HPF (0-3)
[2021-01-20 17:52] LABS: Bacteria/HPF 1+ HPF (None Seen); Yeast-Budding 1+ HPF (None Seen)
[2021-01-20 17:53] LABS: Yeast-Hyphae 2+ HPF (None Seen)
[2021-01-20] MEDS: Atorvastatin Calcium 20 MG TAB PO SCH (20:13)
[2021-01-20] MEDS: Tamsulosin HCl 0.4 MG CAP PO SCH (20:17)
[2021-01-21] MEDS: Levothyroxine Sodium 25 MCG TAB PO SCH (06:51)
[2021-01-21] MEDS: Carvedilol 6.25 MG TAB PO SCH ×2 (09:33→20:36)
[2021-01-21] MEDS: FLUoxetine HCl 20 MG CAP PO SCH (09:34)
[2021-01-21] MEDS: Pantoprazole 40 MG VIAL IVP SCH (09:38)
[2021-01-21] MEDS ORDERED: Sodium Chloride 0.9% 1,000 ML IV SCH (11:30)
[2021-01-21] MEDS: Atorvastatin Calcium 20 MG TAB PO SCH (20:36)
[2021-01-21] MEDS: Tamsulosin HCl 0.4 MG CAP PO SCH (20:36)
[2021-01-21] MEDS: Apixaban 5 MG TAB PO SCH (20:36)
[2021-01-22] MEDS: Levothyroxine Sodium 25 MCG TAB PO SCH (05:05)
[2021-01-22] MEDS: Carvedilol 6.25 MG TAB PO SCH ×2 (09:03→20:28)
[2021-01-22] MEDS: FLUoxetine HCl 20 MG CAP PO SCH (09:03)
[2021-01-22] MEDS: Apixaban 5 MG TAB PO SCH ×2 (09:03→20:28)
[2021-01-22] MEDS: Pantoprazole 40 MG VIAL IVP SCH (09:04)
[2021-01-22] MEDS: Tamsulosin HCl 0.4 MG CAP PO SCH (20:28)
[2021-01-22] MEDS: Atorvastatin Calcium 20 MG TAB PO SCH (20:28)
[2021-01-23 04:55] LABS: #Eosinphils 0.2 thou/uL (0.0-0.7); #Lymphocytes 1.5 thou/uL (1.20-3.40); #Monocytes 0.4 thou/uL (0.11-0.59); #Neutrophils 5.9 thou/uL (1.40-6.50); %Basophils 0.3 % (0.0-1.0); %Eosinophils 2.3 % (0.0-10.0); %Lymphocytes 18.3 % (21.0-51.0); %Monocytes 5.1 % (0.0-10.0); Hemoglobin 8.9 g/dL (14.0-18.0); Mean Corpuscular HGB CONC 33.9 g/dL (32.0-36.0); Mean Corpuscular Hemoglobin 32.4 pg (27.0-31.0); Mean Corpuscular Volume 95.5 fL (78.0-98.0); Mean Platelet Volume 8.9 fL (7.4-10.4); Platelet Count 215 thou/uL (130-400); RBC Distribution Width 13.2 % (11.5-14.5); Red Blood Cell (RBC) Count 2.75 mill/uL (4.70-6.10); White Blood Cell (WBC) Count 7.9 thou/uL (4.8-10.8)
[2021-01-23 05:23] LABS: ALT (SGPT) 38 U/L (8-55); AST (SGOT) 25 U/L (5-34); Albumin 2.7 g/dL (3.4-4.8); Alkaline Phosphatase 139 U/L (40-110); Anion Gap 11 mmol/L (10-20); BUN (Urea Nitrogen) 10 mg/dL (8.4-25.7); Calc. Creatinine Clearance 67 mL/min (70-130); Calcium 7.7 mg/dL (7.8-10.44); Carbon Dioxide 23 mmol/L (23-31); Chloride 110 mmol/L (98-107); Globulin 2.5 g/dL (2.4-3.5); Glucose 95 mg/dL (83-110); Lipase 132 U/L (8-78); Magnesium 1.2 mg/dL (1.6-2.6); Protein, Total 5.2 g/dL (5.8-8.1); Sodium 141 mmol/L (136-145)
[2021-01-23 05:25] LABS: Potassium 2.7 mmol/L (3.5-5.1)
[2021-01-23] MEDS ORDERED: Electrolyte Replacement Protocol 1 EACH FS PRN (05:59)
[2021-01-23] MEDS: Levothyroxine Sodium 25 MCG TAB PO SCH (06:04)
[2021-01-23] MEDS: Potassium Chloride 20 MEQ TAB PO SCH ×2 (06:20→10:55)
[2021-01-23] MEDS: Magnesium 2 GM/50 ML 2 GM in Premix Bag 1 BAG IVPB SCH ×2 (06:20→10:54)
[2021-01-23] MEDS: Apixaban 5 MG TAB PO SCH ×2 (10:55→20:43)
[2021-01-23] MEDS: Fluconazole 100 MG TAB PO SCH (10:56)
[2021-01-23] MEDS: FLUoxetine HCl 20 MG CAP PO SCH (10:56)
[2021-01-23] MEDS: Carvedilol 6.25 MG TAB PO SCH ×2 (10:57→20:43)
[2021-01-23] MEDS: Pantoprazole 40 MG VIAL IVP SCH (13:08)
[2021-01-23 17:14] LABS: Anion Gap 8 mmol/L (10-20); BUN (Urea Nitrogen) 9 mg/dL (8.4-25.7); Calc. Creatinine Clearance 74 mL/min (70-130); Calcium 7.6 mg/dL (7.8-10.44); Carbon Dioxide 25 mmol/L (23-31); Chloride 109 mmol/L (98-107); Glucose 123 mg/dL (83-110); Potassium 3.3 mmol/L (3.5-5.1); Sodium 139 mmol/L (136-145)
[2021-01-23] MEDS ORDERED: Potassium Chloride 20 MEQ TAB PO SCH (17:30)
[2021-01-23] MEDS ORDERED: Magnesium Sulfate 2 GM in Sodium Chloride 0.9% 100 ML IVPB SCH (17:30)
[2021-01-23] MEDS ORDERED: Magnesium 2 GM/50 ML 2 GM in Premix Bag 1 BAG IVPB SCH (17:45)
[2021-01-23] MEDS ORDERED: Zolpidem Tartrate 5 MG TAB PO PRN (18:01)
[2021-01-23] MEDS: Tamsulosin HCl 0.4 MG CAP PO SCH (20:43)
[2021-01-23] MEDS: Atorvastatin Calcium 20 MG TAB PO SCH (20:43)
[2021-01-24 04:51] LABS: #Eosinphils 0.2 thou/uL (0.0-0.7); #Lymphocytes 1.5 thou/uL (1.20-3.40); #Monocytes 0.4 thou/uL (0.11-0.59); #Neutrophils 5.3 thou/uL (1.40-6.50); %Basophils 0.5 % (0.0-1.0); %Eosinophils 2.3 % (0.0-10.0); %Lymphocytes 20.5 % (21.0-51.0); %Monocytes 5.8 % (0.0-10.0); Hemoglobin 9.3 g/dL (14.0-18.0); Mean Corpuscular HGB CONC 34.6 g/dL (32.0-36.0); Mean Corpuscular Volume 95.4 fL (78.0-98.0); Mean Platelet Volume 8.9 fL (7.4-10.4); Platelet Count 212 thou/uL (130-400); RBC Distribution Width 13.3 % (11.5-14.5); Red Blood Cell (RBC) Count 2.82 mill/uL (4.70-6.10); White Blood Cell (WBC) Count 7.4 thou/uL (4.8-10.8)
[2021-01-24 05:14] LABS: ALT (SGPT) 35 U/L (8-55); AST (SGOT) 22 U/L (5-34); Albumin 2.7 g/dL (3.4-4.8); Alkaline Phosphatase 133 U/L (40-110); Anion Gap 10 mmol/L (10-20); BUN (Urea Nitrogen) 8 mg/dL (8.4-25.7); Bilirubin, Total 1.7 mg/dL (0.2-1.2); Calc. Creatinine Clearance 66 mL/min (70-130); Calcium 7.6 mg/dL (7.8-10.44); Carbon Dioxide 23 mmol/L (23-31); Chloride 110 mmol/L (98-107); Globulin 2.5 g/dL (2.4-3.5); Glucose 121 mg/dL (83-110); Lipase 171 U/L (8-78); Potassium 3.5 mmol/L (3.5-5.1); Protein, Total 5.2 g/dL (5.8-8.1); Sodium 139 mmol/L (136-145)
[2021-01-24] MEDS ORDERED: Magnesium 2 GM/50 ML 2 GM in Premix Bag 1 BAG IVPB SCH (05:30)
[2021-01-24] MEDS ORDERED: Potassium Chloride 20 MEQ TAB PO SCH ×2 (05:30→10:45)
[2021-01-24] MEDS: Levothyroxine Sodium 25 MCG TAB PO SCH (05:34)
[2021-01-24] MEDS: FLUoxetine HCl 20 MG CAP PO SCH (09:18)
[2021-01-24] MEDS: Fluconazole 100 MG TAB PO SCH (09:20)
[2021-01-24] MEDS: Carvedilol 6.25 MG TAB PO SCH ×2 (09:20→21:42)
[2021-01-24] MEDS: Apixaban 5 MG TAB PO SCH ×2 (09:21→21:42)
[2021-01-24] MEDS ORDERED: Magnesium Sulfate 2 GM in Sodium Chloride 0.9% 100 ML IVPB SCH (10:45)
[2021-01-24 12:28] LABS: SARS-CoV-2 PCR by NAA Not Detected (NotDetected)
[2021-01-24] MEDS ORDERED: Albumin 25% 100 ML ONE (12:53)
[2021-01-24] MEDS ORDERED: Lidocaine 1% PF 5 ML VIAL ONE (12:53)
[2021-01-24] MEDS ORDERED: Sodium Bicarbonate 2.5 MEQ/5 ML VIAL ONE (12:53)
[2021-01-24] MEDS ORDERED: Sodium Chloride 0.9% 1,000 ML IV SCH (15:30)
[2021-01-24] MEDS ORDERED: NS 0.9% w/ 20 MEQ KCL 1,000 ML/1,000 ML BAG IV SCH (15:30)
[2021-01-24] MEDS: Tamsulosin HCl 0.4 MG CAP PO SCH (21:42)
[2021-01-24] MEDS: Atorvastatin Calcium 20 MG TAB PO SCH (21:42)
[2021-01-24] MEDS: Melatonin 3 MG TAB PO PRN (21:42)
[2021-01-25 04:55] LABS: #Eosinphils 0.2 thou/uL (0.0-0.7); #Lymphocytes 1.4 thou/uL (1.20-3.40); #Monocytes 0.5 thou/uL (0.11-0.59); #Neutrophils 5.4 thou/uL (1.40-6.50); %Basophils 0.5 % (0.0-1.0); %Eosinophils 2.1 % (0.0-10.0); %Lymphocytes 18.8 % (21.0-51.0); %Monocytes 6.9 % (0.0-10.0); %Neutrophils 71.7 % (42.0-75.0); Hemoglobin 9.2 g/dL (14.0-18.0); Mean Corpuscular Volume 96.9 fL (78.0-98.0); Mean Platelet Volume 8.8 fL (7.4-10.4); Platelet Count 200 thou/uL (130-400); RBC Distribution Width 13.3 % (11.5-14.5); Red Blood Cell (RBC) Count 2.88 mill/uL (4.70-6.10); White Blood Cell (WBC) Count 7.6 thou/uL (4.8-10.8)
[2021-01-25] MEDS: Levothyroxine Sodium 25 MCG TAB PO SCH (05:15)
[2021-01-25 05:26] LABS: ALT (SGPT) 33 U/L (8-55); AST (SGOT) 23 U/L (5-34); Albumin 2.8 g/dL (3.4-4.8); Alkaline Phosphatase 137 U/L (40-110); Anion Gap 10 mmol/L (10-20); BUN (Urea Nitrogen) 8 mg/dL (8.4-25.7); Bilirubin, Total 1.5 mg/dL (0.2-1.2); Calc. Creatinine Clearance 70 mL/min (70-130); Calcium 7.3 mg/dL (7.8-10.44); Carbon Dioxide 21 mmol/L (23-31); Chloride 109 mmol/L (98-107); Globulin 2.5 g/dL (2.4-3.5); Glucose 95 mg/dL (83-110); Lipase 224 U/L (8-78); Potassium 3.9 mmol/L (3.5-5.1); Protein, Total 5.3 g/dL (5.8-8.1); Sodium 136 mmol/L (136-145)
[2021-01-25] MEDS: Carvedilol 6.25 MG TAB PO SCH ×2 (08:27→20:17)
[2021-01-25] MEDS: Apixaban 5 MG TAB PO SCH ×2 (08:27→20:18)
[2021-01-25] MEDS: Fluconazole 100 MG TAB PO SCH (08:27)
[2021-01-25] MEDS: FLUoxetine HCl 20 MG CAP PO SCH (08:27)
[2021-01-25] MEDS: Lactated Ringer's 1,000 ML IV SCH (17:09)
[2021-01-25] MEDS: Tamsulosin HCl 0.4 MG CAP PO SCH (20:17)
[2021-01-25] MEDS: Atorvastatin Calcium 20 MG TAB PO SCH (20:17)
[2021-01-25] MEDS: Melatonin 3 MG TAB PO PRN (20:18)
[2021-01-26] MEDS: Levothyroxine Sodium 25 MCG TAB PO SCH (05:12)
[2021-01-26 05:36] LABS: #Eosinphils 0.2 thou/uL (0.0-0.7); #Lymphocytes 1.6 thou/uL (1.20-3.40); #Monocytes 0.6 thou/uL (0.11-0.59); #Neutrophils 5.4 thou/uL (1.40-6.50); %Basophils 0.4 % (0.0-1.0); %Eosinophils 2.1 % (0.0-10.0); %Lymphocytes 20.5 % (21.0-51.0); %Monocytes 7.5 % (0.0-10.0); %Neutrophils 69.5 % (42.0-75.0); Hemoglobin 9.4 g/dL (14.0-18.0); Mean Corpuscular HGB CONC 33.1 g/dL (32.0-36.0); Mean Corpuscular Volume 96.6 fL (78.0-98.0); Platelet Count 214 thou/uL (130-400); RBC Distribution Width 13.4 % (11.5-14.5); Red Blood Cell (RBC) Count 2.94 mill/uL (4.70-6.10); White Blood Cell (WBC) Count 7.8 thou/uL (4.8-10.8)
[2021-01-26 05:50] LABS: ALT (SGPT) 30 U/L (8-55); AST (SGOT) 23 U/L (5-34); Albumin 2.7 g/dL (3.4-4.8); Alkaline Phosphatase 139 U/L (40-110); Anion Gap 9 mmol/L (10-20); BUN (Urea Nitrogen) 7 mg/dL (8.4-25.7); Bilirubin, Total 1.3 mg/dL (0.2-1.2); Calc. Creatinine Clearance 67 mL/min (70-130); Calcium 7.9 mg/dL (7.8-10.44); Carbon Dioxide 23 mmol/L (23-31); Chloride 109 mmol/L (98-107); Globulin 2.9 g/dL (2.4-3.5); Glucose 99 mg/dL (83-110); Lipase 165 U/L (8-78); Potassium 3.4 mmol/L (3.5-5.1); Protein, Total 5.6 g/dL (5.8-8.1); Sodium 138 mmol/L (136-145)
[2021-01-26] MEDS ORDERED: Potassium Chloride 20 MEQ TAB PO SCH ×3 (06:30→17:00)
[2021-01-26] MEDS: hydrALAZINE 20 MG/ML VIAL SLOW IVP PRN ×2 (06:47→15:58)
[2021-01-26] MEDS: FLUoxetine HCl 20 MG CAP PO SCH (09:47)
[2021-01-26] MEDS: Carvedilol 6.25 MG TAB PO SCH (09:47)
[2021-01-26] MEDS: Apixaban 5 MG TAB PO SCH (09:48)
[2021-01-26] MEDS: Fluconazole 100 MG TAB PO SCH (09:48)
[2021-01-26] MEDS: Lactated Ringer's 1,000 ML IV SCH (11:45)
[2021-01-26 12:35] VITALS: BMI 31.0
[2021-01-26 15:59] VITALS: BP 142/93
[2021-01-26 17:53] VITALS: TEMP 98.8
== END 2021-01-26 17:20 | DRG 445 ==
LOC: ERS 18:30 → 2NO 21:31
PROVIDERS: ADMIT Internal Medicine; ATTEND Internal Medicine
PROC: 0FC98ZZ Extirpation of Matter from Common Bile Duct, Via Natural or Artificial Opening Endoscopic (ICD-10-PCS; principal; 2021-01-17)
PROC: 0D9670Z Drainage of Stomach with Drainage Device, Via Natural or Artificial Opening (ICD-10-PCS; 2021-01-19)
DX: K80.51 Calculus of bile duct without cholangitis or cholecystitis with obstruction (principal); I50.22 Chronic systolic (congestive) heart failure; E87.2 Acidosis; N17.9 Acute kidney failure, unspecified; I13.0 Hypertensive heart and chronic kidney disease with heart failure and stage 1 through stage 4 chronic kidney disease, or unspecified chronic kidney disease; I69.954 Hemiplegia and hemiparesis following unspecified cerebrovascular disease affecting left non-dominant side; D61.818 Other pancytopenia; K56.609 Unspecified intestinal obstruction, unspecified as to partial versus complete obstruction; B37.49 Other urogenital candidiasis; Z20.822 Contact with and (suspected) exposure to COVID-19; N18.30 Chronic kidney disease, stage 3 unspecified; D63.1 Anemia in chronic kidney disease; E03.9 Hypothyroidism, unspecified; K83.8 Other specified diseases of biliary tract; R79.89 Other specified abnormal findings of blood chemistry; E78.5 Hyperlipidemia, unspecified; E11.22 Type 2 diabetes mellitus with diabetic chronic kidney disease; E11.42 Type 2 diabetes mellitus with diabetic polyneuropathy; I48.0 Paroxysmal atrial fibrillation; I25.10 Atherosclerotic heart disease of native coronary artery without angina pectoris; E87.6 Hypokalemia; E83.42 Hypomagnesemia; Z79.01 Long term (current) use of anticoagulants; Z79.890 Hormone replacement therapy; Z79.899 Other long term (current) drug therapy; Z80.1 Family history of malignant neoplasm of trachea, bronchus and lung; Z82.49 Family history of ischemic heart disease and other diseases of the circulatory system; Z86.711 Personal history of pulmonary embolism; Z86.718 Personal history of other venous thrombosis and embolism; I25.2 Old myocardial infarction; Z95.5 Presence of coronary angioplasty implant and graft; Z90.49 Acquired absence of other specified parts of digestive tract
CPT/HCPCS: 36415; 36416; 74018; 74019; 74177; 74330; 76705; 80053; 80076; 81001; 81003; 81015; 82271; 82553; 83605; 83690; 83735; 84484; 85025; 85610; 85730; 86704; 86705; 86706; 86803; 87086; 87340; 93005; 96365; 96375; C9113; J0360; J1100; J1642; J2270; J2405; J2543; J2704; J3010; J3475; J3480; J3490; J7042; J7050; J7120; P9047; Q9961-U8; Q9967; U0003; U0005

== ENCOUNTER 2022-05-20 14:43 | Inpatient (IN) | payer MEDICARE, OTHER ==
[2022-05-20] MEDS ORDERED: Ondansetron PF 4 MG/2 ML Vial ONE (15:45)
[2022-05-20] MEDS ORDERED: Morphine 2 MG/ML VIAL ONE (15:45)
[2022-05-20 16:12] LABS: #Monocytes 0.5 thou/uL (0.11-0.59); #Neutrophils 2.8 thou/uL (1.40-6.50); %Basophils 0.8 % (0.0-1.0); %Eosinophils 0.7 % (0.0-10.0); %Lymphocytes 23.1 % (21.0-51.0); %Monocytes 11.6 % (0.0-10.0); %Neutrophils 63.8 % (42.0-75.0); Mean Corpuscular Hemoglobin 31.8 pg (27.0-31.0); Mean Corpuscular Volume 96.4 fl (78.0-98.0); Mean Platelet Volume 9.8 fL (7.4-10.4); Platelet Count 156 10x3/uL (130-400); RBC Distribution Width 12.8 % (11.5-14.5); Red Blood Cell (RBC) Count 4.71 mill/uL (4.70-6.10); White Blood Cell (WBC) Count 4.4 10x3/uL (4.8-10.8)
[2022-05-20 16:20] LABS: INR-International Normal Ratio 1.5; PTT 28.6 sec (22.9-36.1); Prothrombin Time 18.6 sec (12.0-14.7)
[2022-05-20] MEDS ORDERED: Magnesium 2 GM/50 ML BAG (IN WATER) ONE (16:32)
[2022-05-20] MEDS ORDERED: Digoxin 0.5 MG/2 ML AMP ONE (16:32)
[2022-05-20 16:34] LABS: ALT (SGPT) 8 U/L (8-55); AST (SGOT) 17 U/L (5-34); Albumin 4.1 g/dL (3.4-4.8); Alkaline Phosphatase 93 U/L (40-110); Anion Gap 19 mmol/L (10-20); BUN (Urea Nitrogen) 23 mg/dL (8.4-25.7); Bilirubin, Total 1.6 mg/dL (0.2-1.2); CK (CPK) 126 U/L (30-200); Calc. Creatinine Clearance 0 mL/min (70-130); Calcium 9.4 mg/dL (7.8-10.44); Carbon Dioxide 19 mmol/L (23-31); Chloride 107 mmol/L (98-107); Estimated GFR 35; Globulin 3.4 g/dL (2.4-3.5); Glucose 128 mg/dL (83-110); Lipase 14 U/L (8-78); Potassium 4.4 mmol/L (3.5-5.1); Protein, Total 7.5 g/dL (5.8-8.1); Sodium 141 mmol/L (136-145)
[2022-05-20] MEDS ORDERED: Ondansetron PF 4 MG/2 ML Vial IVP PRN (18:40)
[2022-05-20] MEDS ORDERED: HumaLOG 300 UNITS/3 ML VIAL SC PRN ×2 (18:56)
[2022-05-20] MEDS ORDERED: Dextrose 5% in Water 1,000 ML IV PRN (18:56)
[2022-05-20] MEDS ORDERED: Dextrose 50% Abboject 50 ML SYRINGE SLOW IVP PRN (18:56)
[2022-05-20] MEDS ORDERED: Morphine 4 MG/ML VIAL ONE (19:25)
[2022-05-20] MEDS ORDERED: Lidocaine Viscous Sol 2% 15 ml UD Cup ONE (19:34)
[2022-05-20 20:18] LABS: Free T4 (Free Thyroxine) 0.95 ng/dL (0.70-1.48)
[2022-05-20 20:24] LABS: Thyroid Stimulating Hormone 1.1005 uIU/mL (0.35-4.94)
[2022-05-20] MEDS ORDERED: Piperacillin/Tazobactam 3.375 GM in Sodium Chloride 0.9% 100 ML IVPB SCH (22:00)
[2022-05-20] MEDS: Sodium Chloride 0.9% 1,000 ML IV SCH (23:08)
[2022-05-20] MEDS: Famotidine/PF 20 mg/2ml Vial SLOW IVP SCH (23:09)
[2022-05-20 23:59] VITALS: BMI 30.9
[2022-05-21] MEDS: Piperacillin/Tazobactam 3.375 GM in Sodium Chloride 0.9% 100 ML IVPB SCH ×3 (03:15→17:38)
[2022-05-21 03:16] LABS: SARS-CoV-2 NAA Rapid Test Not Detected (NotDetected)
[2022-05-21 05:03] LABS: Hemoglobin A1c 5.2 % (4.0-6.0)
[2022-05-21] MEDS: Sodium Chloride 0.9% 1,000 ML IV SCH ×2 (05:42→18:21)
[2022-05-21] MEDS: Morphine 2 MG/ML VIAL SLOW IVP PRN ×3 (11:25→20:39)
[2022-05-21 11:47] LABS: Hemoglobin 10.4 g/dL (14.0-18.0); Mean Corpuscular HGB CONC 32.4 g/dL (32.0-36.0); Mean Corpuscular Hemoglobin 31.1 pg (27.0-31.0); Mean Corpuscular Volume 96.1 fl (78.0-98.0); RBC Distribution Width 12.6 % (11.5-14.5); Red Blood Cell (RBC) Count 3.33 mill/uL (4.70-6.10)
[2022-05-21 12:05] LABS: #Lymphocytes 0.8 thou/uL (1.20-3.40); #Monocytes 0.6 thou/uL (0.11-0.59); #Neutrophils 4.7 thou/uL (1.40-6.50); %Basophils 0.4 % (0.0-1.0); %Eosinophils 0.2 % (0.0-10.0); %Lymphocytes 13.5 % (21.0-51.0); %Monocytes 10.4 % (0.0-10.0); %Neutrophils 75.6 % (42.0-75.0); Mean Platelet Volume 9.8 fL (7.4-10.4); Platelet Count 109 10x3/uL (130-400); Platelet Morphology Comment Appears Decreased; White Blood Cell (WBC) Count 6.2 10x3/uL (4.8-10.8)
[2022-05-21 12:06] LABS: Anion Gap 13 mmol/L (10-20); BUN (Urea Nitrogen) 29 mg/dL (8.4-25.7); Calc. Creatinine Clearance 43 mL/min (70-130); Calcium 7.6 mg/dL (7.8-10.44); Carbon Dioxide 21 mmol/L (23-31); Chloride 113 mmol/L (98-107); Estimated GFR 37; Glucose 114 mg/dL (83-110); Potassium 3.5 mmol/L (3.5-5.1); Sodium 143 mmol/L (136-145)
[2022-05-21] MEDS: Famotidine/PF 20 mg/2ml Vial SLOW IVP SCH (20:40)
[2022-05-22] MEDS: Morphine 2 MG/ML VIAL SLOW IVP PRN (01:15)
[2022-05-22] MEDS: Sodium Chloride 0.9% 1,000 ML IV SCH ×2 (01:16→14:26)
[2022-05-22] MEDS: Piperacillin/Tazobactam 3.375 GM in Sodium Chloride 0.9% 100 ML IVPB SCH ×3 (01:16→19:25)
[2022-05-22] MEDS ORDERED: MD-Gastroview 120 ML BOT ONE (09:47)
[2022-05-22] MEDS: Pantoprazole 40 MG VIAL IVP SCH (09:52)
[2022-05-22] MEDS: Metoprolol Tartrate 5 MG/5 ML VIAL IVP SCH (17:42)
[2022-05-23] MEDS: Sodium Chloride 0.9% 1,000 ML IV SCH ×2 (02:42→12:42)
[2022-05-23] MEDS: Metoprolol Tartrate 5 MG/5 ML VIAL IVP SCH ×4 (02:42→22:33)
[2022-05-23] MEDS: Piperacillin/Tazobactam 3.375 GM in Sodium Chloride 0.9% 100 ML IVPB SCH ×3 (03:33→18:35)
[2022-05-23 07:41] LABS: Hemoglobin 11.2 g/dL (14.0-18.0); Platelet Count 150 10x3/uL (130-400)
[2022-05-23 07:42] LABS: #Eosinphils 0.1 thou/uL (0.0-0.7); #Lymphocytes 0.8 thou/uL (1.20-3.40); #Monocytes 0.5 thou/uL (0.11-0.59); #Neutrophils 5.2 thou/uL (1.40-6.50); %Basophils 0.1 % (0.0-1.0); %Eosinophils 1.6 % (0.0-10.0); %Lymphocytes 11.7 % (21.0-51.0); %Monocytes 7.7 % (0.0-10.0); %Neutrophils 78.9 % (42.0-75.0); Hemoglobin 11.1 g/dL (14.0-18.0); Mean Corpuscular HGB CONC 31.6 g/dL (32.0-36.0); Mean Corpuscular Hemoglobin 30.6 pg (27.0-31.0); Mean Corpuscular Volume 96.9 fl (78.0-98.0); Mean Platelet Volume 9.3 fL (7.4-10.4); Platelet Count 146 10x3/uL (130-400); RBC Distribution Width 12.3 % (11.5-14.5); Red Blood Cell (RBC) Count 3.63 mill/uL (4.70-6.10); White Blood Cell (WBC) Count 6.6 10x3/uL (4.8-10.8)
[2022-05-23 08:00] LABS: Anion Gap 16 mmol/L (10-20); BUN (Urea Nitrogen) 29 mg/dL (8.4-25.7); Calc. Creatinine Clearance 44 mL/min (70-130); Calcium 8.6 mg/dL (7.8-10.44); Carbon Dioxide 22 mmol/L (23-31); Chloride 116 mmol/L (98-107); Estimated GFR 38; Glucose 96 mg/dL (83-110); Potassium 3.8 mmol/L (3.5-5.1); Sodium 150 mmol/L (136-145)
[2022-05-23] MEDS: Pantoprazole 40 MG VIAL IVP SCH (11:17)
[2022-05-23] MEDS: Dextrose 5% in Water 1,000 ML IV SCH (14:13)
[2022-05-23] MEDS ORDERED: ALPRAZolam 0.25 MG TAB PO PRN (17:29)
[2022-05-23] MEDS ORDERED: QUEtiapine 25 MG TAB PO SCH (21:00)
[2022-05-23] MEDS: Carvedilol 6.25 MG TAB PO SCH (22:32)
[2022-05-23] MEDS: Sacubitril 49 MG/Valsartan 51 MG TABLET PO SCH (22:33)
[2022-05-23] MEDS: Tamsulosin HCl 0.4 MG CAP PO SCH (22:33)
[2022-05-23] MEDS: Transdermal Patch Removal TOP SCH (22:34)
[2022-05-24] MEDS: Piperacillin/Tazobactam 3.375 GM in Sodium Chloride 0.9% 100 ML IVPB SCH ×3 (03:29→18:25)
[2022-05-24] MEDS: Dextrose 5% in Water 1,000 ML IV SCH ×2 (03:30→14:48)
[2022-05-24 05:50] LABS: Anion Gap 17 mmol/L (10-20); BUN (Urea Nitrogen) 23 mg/dL (8.4-25.7); Calc. Creatinine Clearance 50 mL/min (70-130); Calcium 8.5 mg/dL (7.8-10.44); Carbon Dioxide 19 mmol/L (23-31); Chloride 111 mmol/L (98-107); Estimated GFR 44; Glucose 101 mg/dL (83-110); Sodium 144 mmol/L (136-145)
[2022-05-24] MEDS: Levothyroxine Sodium 25 MCG TAB PO SCH (06:21)
[2022-05-24] MEDS: Pantoprazole 40 MG VIAL IVP SCH (09:40)
[2022-05-24] MEDS: Sacubitril 49 MG/Valsartan 51 MG TABLET PO SCH ×2 (09:41→21:30)
[2022-05-24] MEDS: Carvedilol 6.25 MG TAB PO SCH ×2 (09:41→21:00)
[2022-05-24] MEDS: Potassium Chloride 20 MEQ TAB PO SCH ×3 (09:42→21:30)
[2022-05-24] MEDS: FLUoxetine HCl 20 MG CAP PO SCH (09:42)
[2022-05-24] MEDS: Lidocaine 4% Patch TD PRN ×2 (09:59→10:00)
[2022-05-24] MEDS: Transdermal Patch Removal TOP SCH ×2 (10:05→21:32)
[2022-05-24] MEDS: Tamsulosin HCl 0.4 MG CAP PO SCH (21:30)
[2022-05-25] MEDS: Piperacillin/Tazobactam 3.375 GM in Sodium Chloride 0.9% 100 ML IVPB SCH ×2 (03:51→08:32)
[2022-05-25] MEDS: Levothyroxine Sodium 25 MCG TAB PO SCH (05:45)
[2022-05-25] MEDS: Dextrose 5% in Water 1,000 ML IV SCH (08:31)
[2022-05-25] MEDS: FLUoxetine HCl 20 MG CAP PO SCH (08:38)
[2022-05-25] MEDS: Carvedilol 6.25 MG TAB PO SCH (08:38)
[2022-05-25] MEDS: Sacubitril 49 MG/Valsartan 51 MG TABLET PO SCH (08:38)
[2022-05-25] MEDS: Pantoprazole 40 MG VIAL IVP SCH (08:39)
[2022-05-25] MEDS: Transdermal Patch Removal TOP SCH (08:39)
[2022-05-25 12:47] VITALS: BP 132/58; TEMP 98.2
[2022-05-25] MEDS ORDERED: Atorvastatin Calcium 20 MG TAB PO SCH (21:00)
== END 2022-05-25 12:49 | disposition home health service (06) | DRG 388 ==
LOC: ERS 14:43 → 2NO 18:34
PROVIDERS: ADMIT Internal Medicine; ATTEND Internal Medicine
PROC: 0D9670Z Drainage of Stomach with Drainage Device, Via Natural or Artificial Opening (ICD-10-PCS; principal; 2022-05-20)
DX: K56.600 Partial intestinal obstruction, unspecified as to cause (principal); J69.0 Pneumonitis due to inhalation of food and vomit; I13.0 Hypertensive heart and chronic kidney disease with heart failure and stage 1 through stage 4 chronic kidney disease, or unspecified chronic kidney disease; I48.21 Permanent atrial fibrillation; I50.22 Chronic systolic (congestive) heart failure; I69.352 Hemiplegia and hemiparesis following cerebral infarction affecting left dominant side; N17.9 Acute kidney failure, unspecified; E66.01 Morbid (severe) obesity due to excess calories; R53.81 Other malaise; E03.9 Hypothyroidism, unspecified; E78.5 Hyperlipidemia, unspecified; E11.22 Type 2 diabetes mellitus with diabetic chronic kidney disease; N18.30 Chronic kidney disease, stage 3 unspecified; F01.50 Vascular dementia, unspecified severity, without behavioral disturbance, psychotic disturbance, mood disturbance, and anxiety; E11.42 Type 2 diabetes mellitus with diabetic polyneuropathy; I25.10 Atherosclerotic heart disease of native coronary artery without angina pectoris; D63.1 Anemia in chronic kidney disease; Z98.890 Other specified postprocedural states; Z68.32 Body mass index [BMI] 32.0-32.9, adult; Z90.49 Acquired absence of other specified parts of digestive tract; Z79.899 Other long term (current) drug therapy; Z79.890 Hormone replacement therapy; Z86.718 Personal history of other venous thrombosis and embolism; Z86.711 Personal history of pulmonary embolism; Z95.5 Presence of coronary angioplasty implant and graft; Z82.49 Family history of ischemic heart disease and other diseases of the circulatory system; Z20.822 Contact with and (suspected) exposure to COVID-19
CPT/HCPCS: 36415; 36416; 70450; 71045; 74018; 74019; 74177; 74250; 80048; 80053; 82550; 83036; 83605; 83690; 84439; 84443; 84481; 84484; 85014; 85018; 85025; 85049; 85610; 85730; 93005; 93306; 96374; 96375; 96376; C9113; J1160; J1650; J2270; J2272; J2405; J2543; J3475; J3490; J7050; J7070; Q9963; Q9967; S0028